=== PATIENT | female | born 1945 ===

== ENCOUNTER 2018-03-23 08:03 | Inpatient (IN) | payer MEDICARE, MEDICAID ==
[2018-03-23 08:03] VITALS: BMI 28.3
--- NOTE | 2018-03-23 08:55 | C.PDOC ---
History Of Present Illness 72 year old female with PMHx of peripheral vascular disease is sent to the ED by Dr. Lam for evaluation. Patient reports she was sent in for a left femoral popliteal bypass. Patient denies fever, chills, nausea, vomit, diarrhea , weakness, numbness. Time Seen by Provider: 03/23/18 08:15 Chief Complaint (Nursing): Medical Clearance History Per: Patient History/Exam Limitations: no limitations Onset/Duration Of Symptoms: Days Current Symptoms Are (Timing): Still Present Reports Recently: Treated By A Physician (Dr. Lam) Recent travel outside of the [place]: No Additional History Per: Patient Past Medical History Reviewed: Historical Data, Nursing Documentation, Vital Signs Vital Signs: Last Vital Signs Temp 98.3 F 03/24/18 08:00 Pulse 66 03/24/18 08:00 Resp 20 03/24/18 08:00 BP 153/82 H 03/24/18 08:00 Pulse Ox 95 03/24/18 08:00 - Medical History PMH: Anxiety, Bipolar Disorder, CHF, COPD, Depression, Diabetes, HTN Denies: Hepatitis, HIV, Chronic Kidney Disease, Seizures, Sexually Transmitted Disease Surgical History: No Surg Hx Denies: Pacemaker - [facility] Procedures ANGIOPLASTY OF OTHER NON-CORONARY VESSEL(S) (02/28/15) ATHERECTOMY OF OTHER NON-CORONARY VESSEL(S) (02/28/15) CERVICAL BIOPSY NEC (03/20/98) COLONOSCOPY (07/28/13) CONTRAST AORTOGRAM (02/28/15) CONTRAST ARTERIOGRAM-LEG (02/28/15) D & C NEC (03/20/98) DILATION OF L COM ILIAC ART WITH INTRALUM DEV, PERC APPROACH (12/01/17) DILATION OF L EXT ILIAC ART WITH INTRALUM DEV, PERC APPROACH (12/01/17) ESOPHAGOGASTRODUODENOSCOPY [EGD] W/CLOSED BIOPSY (10/23/12) FLUOROSCOPY OF AORTA AND BILATERAL LOWER EXTREMITY ARTERIES (12/01/17) INJECT/INFUSE ELECTROLYT (08/28/12) INJECT/INFUSE NEC (08/28/12) INSEJ [id number] PERIPHERAL NON-CORONARY VES STENT(S) (02/28/15) INSERTION OF ONE VASCULAR STENT (02/28/15) MEDICATION MANAGEMENT (07/16/15) PROCEDURE ON SINGLE VESSEL (02/28/15) PSYCHIAT DRUG THERAP NEC (02/16/15) TRANSFUSE NONAUT RED BLOOD CELLS IN PERIPH VEIN, PERC (12/01/17) Family History: States: Unknown Family Hx - Social History Hx Tobacco Use: No Hx Alcohol Use: No Hx Substance Use: No Review Of Systems Constitutional: Negative for: Fever, Chills Cardiovascular: Negative for: Chest Pain, Palpitations Respiratory: Negative for: Cough, Shortness of Breath Gastrointestinal: Negative for: Nausea, Vomiting Neurological: Negative for: Weakness, Numbness Physical Exam - Physical Exam Appears: Non-toxic, No Acute Distress Skin: Normal Color, Warm, Dry Head: Atraumatic, Normacephalic Eye(s): bilateral: Normal Inspection Oral Mucosa: Moist Neck: Normal ROM, Supple Chest: Symmetrical Cardiovascular: Rhythm Regular, No Murmur Respiratory: Normal Breath Sounds, No Rales, No Rhonchi, No Wheezing Gastrointestinal/Abdominal: Soft, No Tenderness, No Guarding, No Rebound Extremity: Normal ROM (left leg), No Tenderness, Capillary Refill (< 2 seconds left leg only. ), No Swelling, Other (right leg BKA. ) Pulses: Left Dorsalis Pedis: Normal Neurological/Psych: Oriented x3, Normal Speech Gait: Other (wheelchair) ED Course And Treatment - Laboratory Results Result Diagrams: 03/24/18 07:04 03/24/18 07:04 ECG: Interpreted By Me, Viewed By Me ECG Rhythm: Nonspecific Changes (ST/T) Interpretation Of ECG: nromal intervals, normal axis, Q eave in lead III and aVF. Rate From EC (BPM) O2 Sat by Pulse Oximetry: 95 (ON RA) Pulse Ox Interpretation: Normal Medical Decision Making Medical Decision Making: Impression: Sent by PMD Plan: * Labs * CXR * EKG case discussed with Dr. Lam and Dr. Pink and will admit to hospital. Disposition - Disposition Disposition: HOSPITALIZED Disposition Time: 10:40 Condition: FAIR - Clinical Impression Clinical Impression: Peripheral vascular disease - Scribe Statement The provider has reviewed the documentation as recorded by the Scribe Chepe Cortez All medical record entries made by the Scribe were at my direction and personally dictated by me. I have reviewed the chart and agree that the record accurately reflects my personal performance of the history, physical exam, medical decision making, and the department course for this patient. I have also personally directed, reviewed, and agree with the discharge instructions and disposition.
--- NOTE | 2018-03-23 09:01 | RAD ---
Date of service: 03/23/2018 PROCEDURE: CHEST RADIOGRAPH, 1 VIEW HISTORY: SOB COMPARISON: None available. FINDINGS: The left PICC line terminates in the SVC. LUNGS: The lungs are well inflated and clear. PLEURA: No pneumothorax or pleural fluid seen. CARDIOVASCULAR: Normal. OSSEOUS STRUCTURES: No significant abnormalities. VISUALIZED UPPER ABDOMEN: Normal. OTHER FINDINGS: None. IMPRESSION: No active pulmonary disease.
[2018-03-23 09:29] LABS: BASO # 0.1 K/uL (0.0-0.2); BASO % 1.3 % (0.0-2.0); EOS # 0.3 K/uL (0.0-0.7); EOS % 3.9 % (0.0-4.0); HEMOGLOBIN 13.7 g/dL (11.0-16.0); LYMPH # 1.5 K/uL (1.0-4.3); LYMPH % 22.1 % (20.0-40.0); MEAN CELL VOLUME 81.7 fL (81.0-99.0); MEAN CORPUSCULAR HEMOGLOBIN 27.2 pg (27.0-31.0); MEAN CORPUSCULAR HGB CONC 33.3 g/dL (33.0-37.0); MEAN PLATELET VOLUME 9.5 fL (7.2-11.7); MONO # 0.4 K/uL (0.0-0.8); MONO % 6.3 % (0.0-10.0); NEUT # 4.6 K/uL (1.8-7.0); NEUT % 66.4 % (50.0-75.0); NRBC % 0.1 % (0.0-2.0); RBC 5.05 Mil/uL (3.80-5.20); RED CELL DISTRIBUTION WIDTH 14.1 % (11.5-14.5); WHITE BLOOD COUNT 6.9 K/uL (4.8-10.8)
[2018-03-23 09:48] LABS: PROTHROMBIN TIME 10.4 SECONDS (9.7-12.2)
[2018-03-23 09:49] LABS: ALB/GLOB RATIO 1.3 (1.0-2.1); ALBUMIN 3.7 g/dL (3.5-5.0); CALCIUM 9.4 mg/dl (8.6-10.4)
[2018-03-23] MEDS: Sodium Chloride 0.45% 1,000 ML IV SCH (11:45)
[2018-03-23] MEDS: (Novolin R) Insulin Human Regular 100 units/ml vial SC SCH ×3 (12:28→22:10)
--- NOTE | 2018-03-23 13:21 | CP.PCM.PN ---
Subjective - Date & Time of Evaluation Date of Evaluation: 03/23/18 Time of Evaluation: 13:19 - Subjective Subjective: right bka chronically ischemic left leg has had muliple endovascular interventions, some successful, some not plan is left fem pop bpass pending medical/ cadiac evaluation. Objective - Vital Signs/Intake and Output Vital Signs (last 24 hours): Temp Pulse Resp BP Pulse Ox 98.4 F 72 20 114/65 95 03/23/18 11:20 03/23/18 11:20 03/23/18 11:20 03/23/18 11:20 03/23/18 11:20 - Medications Medications: Current Medications Divalproex Sodium (Depakote Er) 250 mg PO HS [facility] Escitalopram Oxalate (Lexapro) 10 mg PO DAILY [facility] Furosemide (Lasix) 40 mg PO BID [facility] Sodium Chloride (Sodium Chloride 0.45%) 1,000 mls @ 40 mls/hr IV .Q24H [facility] Last Admin: 03/23/18 11:45 Dose: 40 mls/hr Ibuprofen (Motrin Tab) 800 mg PO Q6H PRN PRN Reason: Pain, moderate (4-7) Insulin Human Regular (Novolin R) 0 unit SC ACHS [facility] Last Admin: 03/23/18 12:28 Dose: 6 units Lisinopril (Zestril) 5 mg PO DAILY [facility] Lorazepam (Ativan) 1 mg PO QID PRN PRN Reason: Anxiety Pregabalin (Lyrica) 50 mg PO TID [facility] Quetiapine Fumarate (Seroquel) 25 mg PO BID [facility] - Labs Labs: 03/23/18 09:24 03/23/18 09:24 PT 10.4 SECONDS (9.7-12.2) 03/23/18 09:24 INR 1.0 03/23/18 09:24 APTT 19 SECONDS (21-34) L 03/23/18 09:24
--- NOTE | 2018-03-23 13:48 | CP.PCM.CON ---
History of Present Illness - History of Present Illness History of Present Illness: Vascular Consult for Dr. Lam 72 y/o F patient presents to the ED with PAD. The patient states that they are not in any acute pain or distress and that they are here to receive medical clearance for a femoral-popliteal bypass for PAD in her left lower extremity. PMH: PVD s/p multple endovascular stent placement to L iliac, SFA and popliteal , DM, HTN, bipolar depression do with multiple psychiatric admissions PSH: right BKA, right hip surgery, left femur sx, multiple angios Review of Systems - Cardiovascular Cardiovascular: absent: Chest Pain, Palpitations, Rapid Heart Rate - Respiratory Respiratory: absent: Cough, Dyspnea, Pain on Inspiration, Excessive Mucous Production - Gastrointestinal Gastrointestinal: Diarrhea. absent: Nausea, Vomiting - Genitourinary Genitourinary: absent: Difficulty Urinating, Dysuria, Hematuria, Pyuria - Musculoskeletal Musculoskeletal: absent: Limited Range of Motion, Radiating Pain into Limb, Tingling Past Patient History - Tetanus Immunizations Tetanus Immunization: Unknown - Past Social History Smoking Status: Light Smoker < 10 Cigarettes Daily - CARDIAC Hx Congestive Heart Failure: Yes Hx Hypertension: Yes Hx Pacemaker: No - PULMONARY Hx Chronic Obstructive Pulmonary Disease (COPD): Yes - NEUROLOGICAL Hx Seizures: No - HEENT Hx HEENT Problems: No Hx Cataracts: Yes - RENAL Hx Chronic Kidney Disease: No - ENDOCRINE/METABOLIC Hx Diabetes Mellitus Type 2: Yes - HEMATOLOGICAL/ONCOLOGICAL Hx Human Immunodeficiency Virus (HIV): No - INTEGUMENTARY Other/Comment: pvd - MUSCULOSKELETAL/RHEUMATOLOGICAL Hx Falls: No - GASTROINTESTINAL Hx Gastrointestinal Disorders: No - GENITOURINARY/GYNECOLOGICAL Hx Sexually Transmitted Disorders: No - PSYCHIATRIC Hx Anxiety: Yes Hx Bipolar Disorder: Yes Hx Depression: Yes Hx Substance Use: No - SURGICAL HISTORY Hx Surgeries: Yes Other/Comment: right BKA - ANESTHESIA Hx Anesthesia: Yes Hx Anesthesia Reactions: No Hx Malignant Hyperthermia: No Meds Allergies/Adverse Reactions: Allergies Allergy/AdvReac Type Severity Reaction Status Date / Time aminothiols Allergy Mild RASH Uncoded 03/23/18 08:12 CONTRAST AdvReac Intermediate "SPACED Uncoded 03/23/18 08:12 OUT" - Medications Medications: Current Medications Divalproex Sodium (Depakote Er) 250 mg PO HS [facility] Escitalopram Oxalate (Lexapro) 10 mg PO DAILY [facility] Furosemide (Lasix) 40 mg PO BID [facility] Sodium Chloride (Sodium Chloride 0.45%) 1,000 mls @ 40 mls/hr IV .Q24H [facility] Last Admin: 03/23/18 11:45 Dose: 40 mls/hr Ibuprofen (Motrin Tab) 800 mg PO Q6H PRN PRN Reason: Pain, moderate (4-7) Insulin Human Regular (Novolin R) 0 unit SC ACHS [facility] Last Admin: 03/23/18 12:28 Dose: 6 units Lisinopril (Zestril) 5 mg PO DAILY [facility] Lorazepam (Ativan) 1 mg PO QID PRN PRN Reason: Anxiety Pregabalin (Lyrica) 50 mg PO TID [facility] Quetiapine Fumarate (Seroquel) 25 mg PO BID [facility] Physical Exam - Constitutional Appears: Well, Non-toxic, No Acute Distress - Extremities Exam Additional comments: Warm to touch, sensation and motor intact. +1 PT pulse, 0 DP pulse. Results - Vital Signs Recent Vital Signs: Last Vital Signs Temp 98.4 F 03/23/18 11:20 Pulse 72 03/23/18 11:20 Resp 20 03/23/18 11:20 BP 114/65 03/23/18 11:20 Pulse Ox 95 03/23/18 11:20 - Labs Result Diagrams: 03/23/18 09:24 03/23/18 09:24 Labs: Laboratory Results - last 24 hr 03/23/18 03/23/18 03/23/18 09:24 09:24 09:24 WBC 6.9 RBC 5.05 Hgb 13.7 Hct 41.3 MCV 81.7 MCH 27.2 MCHC 33.3 RDW 14.1 Plt Count 187 MPV 9.5 Neut % (Auto) 66.4 Lymph % (Auto) 22.1 [place] % (Auto) 6.3 Eos % (Auto) 3.9 Baso % (Auto) 1.3 Neut # (Auto) 4.6 Lymph # (Auto) 1.5 [place] # (Auto) 0.4 Eos # (Auto) 0.3 Baso # (Auto) 0.1 PT 10.4 INR 1.0 APTT 19 L Sodium 145 Potassium 4.1 Chloride 106 Carbon Dioxide 28 Anion Gap 15 BUN 32 H Creatinine 1.5 H Est GFR ( Amer) 42 Est GFR (Non-Af Amer) 34 POC Glucose (mg/dL) Random Glucose 185 H Calcium 9.4 Total Bilirubin 0.4 AST 14 D ALT 22 Alkaline Phosphatase 116 Total Protein 6.6 Albumin 3.7 Globulin 2.9 Albumin/Globulin Ratio 1.3 Blood Type Antibody Screen 03/23/18 03/23/18 09:24 12:05 WBC RBC Hgb Hct MCV MCH MCHC RDW Plt Count MPV Neut % (Auto) Lymph % (Auto) [place] % (Auto) Eos % (Auto) Baso % (Auto) Neut # (Auto) Lymph # (Auto) [place] # (Auto) Eos # (Auto) Baso # (Auto) PT INR APTT Sodium Potassium Chloride Carbon Dioxide Anion Gap BUN Creatinine Est GFR ( Amer) Est GFR (Non-Af Amer) POC Glucose (mg/dL) 211 H Random Glucose Calcium Total Bilirubin AST ALT Alkaline Phosphatase Total Protein Albumin Globulin Albumin/Globulin Ratio Blood Type A NEGATIVE Antibody Screen Negative Assessment & Plan - Assessment and Plan (Free Text) Assessment: 72 y/o F presents with PAD Plan: Needs medical and cardiac clearance. Needs echocardiography. Will schedule for potential femoral-popliteal bypass for 03/26/18. D/w Dr. Carole Navas PGY3
--- NOTE | 2018-03-24 05:31 | HP ---
HISTORY OF PRESENT ILLNESS: I know, Raegan, very well from [facility]. She has had some peripheral vascular disease. She is still smoking cigarettes despite multiple times telling her to stop. She has a right BKA from the same issue. Now the plan is from Dr. Lam to do a fem-pop bypass. I believe she will go for an angiogram tomorrow. She is having some skin color changes and ulcers on the left foot. PAST MEDICAL HISTORY: There is a past medical history of anxiety, bipolar disorder, CHF, COPD, depression, diabetes, hypertension. She had an angioplasty, arterectomy, cervical biopsy, colonoscopy, contrast aortogram, arteriogram, D and C, dilatation of the left common iliac artery, dilatation of the left external iliac artery, esophagogastroduodenoscopy, fluoroscopy of aorta and bilateral lower extremities, multiple vascular stents, multiple transfusions. SOCIAL HISTORY: She still smokes cigarettes. No alcohol, no drugs. FAMILY HISTORY: Hypertension in the family. REVIEW OF SYSTEMS: No acute vision changes or hearing changes. No sore throat. No chest pain or palpitations. No cough or shortness of breath. No nausea, vomiting, constipation, diarrhea. No muscle weakness or numbness. She does have a left foot skin discoloration ulcers of the right first toe. There was a right BKA, and there was a left first toe with a ulcer. PHYSICAL EXAMINATION: VITAL SIGNS: She has a 99.3 temperature, 69 pulse, 100/69 blood pressure, 20 respiratory rate, 94% O2 sat. HEENT: Atraumatic, normocephalic. Nontoxic. Comfortable in bed. Throat moist. Extraocular muscles are intact. Pupils equal, reactive to light and accommodation. NECK: No palpable thyroid. HEART: Regular rate. No murmurs. LUNGS: Decreased breath sounds bilaterally, but no wheezes, rhonchi, or rales. ABDOMEN: Soft, nontender. Positive bowel sounds. No guarding. No rebound. No CVA tenderness. EXTREMITIES: The right leg is BKA. The left leg has got a first toe ulcer beginning. SKIN: Left foot skin issue and some pain. Otherwise, the skin is warm and dry. NEUROLOGIC: Alert and oriented x3. Normal speech. Wheelchair is her way of getting around. She has multiple tests done. She has 145 sodium, potassium 4.1, BUN 32, creatinine 1.5. She has been on IV fluids. Last blood sugar was 193, calcium was 9.4, total bili is 0.4, AST is 14, ALT is 22, alkaline phosphatase is 116, total protein is 6.6, INR is 1, WBC is 6.9, hemoglobin 13.7, hematocrit 41.3, platelets of 187,000. She had consults with Dr. Leavitt, Cardiology; Dr. Lam, Vascular Surgeon. She will be on regular medication Zestril, Seroquel, Motrin, Lyrica, Lexapro, Lasix, Depakote, Ativan, IV fluids. We will check her labs tomorrow morning. She will have an angiogram tomorrow morning and possible fem/pop bypass afterwards. Peripheral vascular disease, left leg. Haja Pink DO MTDD
[2018-03-24 07:15] LABS: MEAN CELL VOLUME 81.5 fL (81.0-99.0); MEAN CORPUSCULAR HEMOGLOBIN 26.9 pg (27.0-31.0); MEAN CORPUSCULAR HGB CONC 33.1 g/dL (33.0-37.0); MEAN PLATELET VOLUME 10.2 fL (7.2-11.7); RBC 4.84 Mil/uL (3.80-5.20); RED CELL DISTRIBUTION WIDTH 14.2 % (11.5-14.5); WHITE BLOOD COUNT 6.2 K/uL (4.8-10.8)
[2018-03-24 07:30] LABS: ALB/GLOB RATIO 1.4 (1.0-2.1); ALBUMIN 3.5 g/dL (3.5-5.0); CALCIUM 9.3 mg/dl (8.6-10.4)
[2018-03-24] MEDS: (Novolin R) Insulin Human Regular 100 units/ml vial SC SCH ×4 (08:30→21:33)
--- NOTE | 2018-03-24 09:43 | PN ---
DATE: 03/24/2018 SUBJECTIVE: She is resting comfortably in bed. No complaints of chest pain, shortness of breath, or abdominal pain. She is resting in bed watching TV. IV fluids are running. PHYSICAL EXAMINATION: VITAL SIGNS: She has a 98.1 temp, 67 pulse, 146/79 blood pressure, 20 respiratory rate, 95% O2 sat on room air. HEENT: Atraumatic and normocephalic. HEART: Regular rate. LUNGS: Decreased breath sounds, but clear. ABDOMEN: Soft. EXTREMITIES: Left leg is not in any pain at this time. Awaiting for fem/pop bypass with Dr. Lam and Cardiology evaluation. She is currently on Ativan, Depakote, Lasix, Lexapro, Lyrica, Motrin, insulin coverage, Seroquel IV fluids and Zestril. LABORATORY DATA: She has a 145 sodium, potassium 4.1, BUN 32, creatinine 0.5, GFR is 34, sugar is 216, calcium is 9.4, AST is 14, ALT is 22, alkaline phosphatase 116, total protein 6.6. White count 6.9, hemoglobin 13.7, hematocrit 41.2, platelets are 187,000. ASSESSMENT AND PLAN: She was seen already by Dr. Lam as a consult for Dr. Leavitt. Waiting for fem/pop bypass procedure of the left foot for peripheral vascular disease, chronic ischemic left leg. She also has a history of anxiety, hypertension, and psychological issues. We will check her labs tomorrow. Discussed with the nurse. Haja Pink DO
--- NOTE | 2018-03-24 10:20 | CP.PCM.PN ---
Subjective - Date & Time of Evaluation Date of Evaluation: 03/24/18 Time of Evaluation: 10:18 - Subjective Subjective: Surgery: Dr. Lam Pt seen and examined. Resting comfortably in bed. No acute events overnight. No complaints. Objective - Vital Signs/Intake and Output Vital Signs (last 24 hours): Temp Pulse Resp BP Pulse Ox 98.3 F 66 20 153/82 H 95 03/24/18 08:00 03/24/18 08:00 03/24/18 08:00 03/24/18 08:00 03/24/18 09:44 Intake and Output: 03/24/18 03/24/18 06:59 18:59 Intake Total 840 Balance 840 - Medications Medications: Current Medications Divalproex Sodium (Depakote Er) 250 mg PO HS [facility] Last Admin: 03/23/18 21:42 Dose: 250 mg Escitalopram Oxalate (Lexapro) 10 mg PO DAILY [facility] Furosemide (Lasix) 40 mg PO BID [facility] Last Admin: 03/23/18 17:39 Dose: Not Given Heparin Sodium (Porcine) (Heparin) 5,000 units SC Q12 [facility] Sodium Chloride (Sodium Chloride 0.45%) 1,000 mls @ 40 mls/hr IV .Q24H [facility] Last Admin: 03/23/18 11:45 Dose: 40 mls/hr Ibuprofen (Motrin Tab) 800 mg PO Q6H PRN PRN Reason: Pain, moderate (4-7) Insulin Human Regular (Novolin R) 0 unit SC ACHS [facility] Last Admin: 03/24/18 08:30 Dose: 6 units Lisinopril (Zestril) 5 mg PO DAILY [facility] Lorazepam (Ativan) 1 mg PO QID PRN PRN Reason: Anxiety Mupirocin (Bactroban Ointment) 0 gm TOP BID [facility] Pneumococcal Polyvalent Vaccine (Pneumovax 23 Vaccine) 0.5 ml IM .ONCE ONE Stop: 03/25/18 10:01 Pregabalin (Lyrica) 50 mg PO TID [facility] Last Admin: 03/23/18 17:39 Dose: 50 mg Quetiapine Fumarate (Seroquel) 25 mg PO BID [facility] - Labs Labs: 03/24/18 07:04 03/24/18 07:04 PT 10.4 SECONDS (9.7-12.2) 03/23/18 09:24 INR 1.0 03/23/18 09:24 APTT 19 SECONDS (21-34) L 03/23/18 09:24 - Constitutional Appears: Non-toxic, No Acute Distress - Head Exam Head Exam: ATRAUMATIC, NORMOCEPHALIC - Eye Exam Eye Exam: EOMI - ENT Exam ENT Exam: Mucous Membranes Moist - Respiratory Exam Respiratory Exam: NORMAL BREATHING PATTERN. absent: Accessory Muscle Use, Respiratory Distress - GI/Abdominal Exam GI & Abdominal Exam: Soft. absent: Tenderness - Extremities Exam Additional comments: LLE, chronic ischemic skin changes, ulcer L hallux, ulcer in web space of 4th and 5th digit Assessment and Plan - Assessment and Plan (Free Text) Assessment: 72F w. LLE PVD -will plan for fem-pop bypass when cleared by cardiology/medicine -d/w attending Orly PGY4
[2018-03-24] MEDS: Sodium Chloride 0.45% 1,000 ML IV SCH ×2 (11:40→21:25)
--- NOTE | 2018-03-24 14:13 | CARD ---
APPROVED REPORT Date of service: 03/23/2018 EXAM: Two-dimensional and M-mode echocardiogram with Doppler and color Doppler. Other Information Quality : GoodRhythm : INDICATION Peripheral V <Conclusion> Technically very limited study Left ventricle: thickness: normal; size: normal; overall ejection fraction: 65%: diastolic filling pressures: normal Mitral valve: annulus: normal: leaflets: normal: excursion: normal; no significant trans-mitral gradient: No significant incompetence: left atrium: normal Aortic valve: leaflets:Calcified thickened non coronary cusp: excursion: normal; 12 mmHg trans-aortic gradient: No significant incompetence: aortic root: normal Right sided Structures: Pulmonary valve: normal; no significant incompetence; Tricuspid valve: normal; no significant incompetence: Intra-cardiac hemodynamics: pulmonary systolic pressures: normal; central venous pressures: normal No pericardial effusion
[2018-03-24] MEDS: Nystatin 100,000 Units/gm Cream(15 gm) TOP SCH (18:00)
--- NOTE | 2018-03-24 18:56 | CP.PCM.CON ---
History of Present Illness - History of Present Illness History of Present Illness: Reason for consult: pre-CV operative evaluation HPI 72 year old female with PMHx of peripheral vascular disease is sent to the ED by Dr. Lam for evaluation. Patient reports she was sent in for a left femoral popliteal bypass. Patient denies fever, chills, nausea, vomit, diarrhea , weakness, numbness. Review of Systems - Constitutional Constitutional: absent: Chills, Weakness - EENT Nose/Mouth/Throat: absent: Nasal Congestion, Neck Pain - Cardiovascular Cardiovascular: absent: Chest Pain, Pedal Edema, Syncope - Respiratory Respiratory: absent: Cough, Dyspnea on Exertion - Gastrointestinal Gastrointestinal: absent: Abdominal Pain, Melena - Musculoskeletal Musculoskeletal: Numbness, Tingling - Integumentary Integumentary: Skin Ulcer Past Patient History - Tetanus Immunizations Tetanus Immunization: Unknown - Past Medical History & Family History Past Medical History?: Yes - Past Social History Smoking Status: Light Smoker < 10 Cigarettes Daily - CARDIAC Hx Congestive Heart Failure: Yes Hx Hypertension: Yes - PULMONARY Hx Chronic Obstructive Pulmonary Disease (COPD): Yes - NEUROLOGICAL Hx Seizures: No - HEENT Hx HEENT Problems: No Hx Cataracts: Yes - RENAL Hx Chronic Kidney Disease: No - ENDOCRINE/METABOLIC Hx Diabetes Mellitus Type 2: Yes - HEMATOLOGICAL/ONCOLOGICAL Hx Human Immunodeficiency Virus (HIV): No - INTEGUMENTARY Other/Comment: pvd - MUSCULOSKELETAL/RHEUMATOLOGICAL Hx Falls: No - GASTROINTESTINAL Hx Gastrointestinal Disorders: No - GENITOURINARY/GYNECOLOGICAL Hx Sexually Transmitted Disorders: No - PSYCHIATRIC Hx Anxiety: Yes Hx Bipolar Disorder: Yes Hx Depression: Yes Hx Substance Use: No - SURGICAL HISTORY Hx Surgeries: Yes Other/Comment: right BKA - ANESTHESIA Hx Anesthesia: Yes Hx Anesthesia Reactions: No Hx Malignant Hyperthermia: No Meds Allergies/Adverse Reactions: Allergies Allergy/AdvReac Type Severity Reaction Status Date / Time aminothiols Allergy Mild RASH Uncoded 03/23/18 08:12 CONTRAST AdvReac Intermediate "SPACED Uncoded 03/23/18 08:12 OUT" - Medications Medications: Current Medications Divalproex Sodium (Depakote Er) 250 mg PO HS [facility] Last Admin: 03/23/18 21:42 Dose: 250 mg Escitalopram Oxalate (Lexapro) 10 mg PO DAILY [facility] Last Admin: 03/24/18 10:59 Dose: 10 mg Furosemide (Lasix) 40 mg PO BID [facility] Last Admin: 03/24/18 17:19 Dose: 40 mg Heparin Sodium (Porcine) (Heparin) 5,000 units SC Q12 [facility] Last Admin: 03/24/18 11:00 Dose: 5,000 units Sodium Chloride (Sodium Chloride 0.45%) 1,000 mls @ 40 mls/hr IV .Q24H [facility] Last Admin: 03/24/18 11:40 Dose: Not Given Ibuprofen (Motrin Tab) 800 mg PO Q6H PRN PRN Reason: Pain, moderate (4-7) Insulin Human Regular (Novolin R) 0 unit SC ACHS [facility] Last Admin: 03/24/18 17:21 Dose: 3 units Lisinopril (Zestril) 5 mg PO DAILY [facility] Last Admin: 03/24/18 10:59 Dose: 5 mg Lorazepam (Ativan) 1 mg PO QID PRN PRN Reason: Anxiety Mupirocin (Bactroban Ointment) 0 gm TOP BID [facility] Last Admin: 03/24/18 17:23 Dose: 1 applic Nystatin (Mycostatin Cream) 0 ea TOP TID [facility] Pneumococcal Polyvalent Vaccine (Pneumovax 23 Vaccine) 0.5 ml IM .ONCE ONE Stop: 03/25/18 10:01 Pregabalin (Lyrica) 50 mg PO TID [facility] Last Admin: 03/24/18 17:19 Dose: 50 mg Quetiapine Fumarate (Seroquel) 25 mg PO BID [facility] Last Admin: 03/24/18 17:20 Dose: 25 mg Physical Exam - Constitutional Appears: No Acute Distress - Head Exam Head Exam: ATRAUMATIC - Eye Exam Eye Exam: absent: Scleral icterus - ENT Exam ENT Exam: Mucous Membranes Moist - Neck Exam Neck exam: Positive for: Full Rom - Respiratory Exam Respiratory Exam: Decreased Breath Sounds, Clear to Auscultation Bilateral - Cardiovascular Exam Cardiovascular Exam: REGULAR RHYTHM - GI/Abdominal Exam GI & Abdominal Exam: Soft - Extremities Exam Extremities exam: Positive for: tenderness. Negative for: pedal edema Additional comments: +ulceration - Back Exam Back exam: NORMAL INSPECTION. absent: CVA tenderness (L) Results - Vital Signs Recent Vital Signs: Last Vital Signs Temp 99.3 F 03/24/18 15:43 Pulse 75 03/24/18 15:43 Resp 20 03/24/18 15:43 BP 131/75 07/24/18 17:19 Pulse Ox 95 03/24/18 15:43 - Labs Result Diagrams: 03/24/18 07:04 03/24/18 07:04 Labs: Laboratory Results - last 24 hr 03/23/18 03/24/18 03/24/18 21:23 07:04 07:04 WBC 6.2 RBC 4.84 Hgb 13.0 Hct 39.4 MCV 81.5 MCH 26.9 L MCHC 33.1 RDW 14.2 Plt Count 177 MPV 10.2 Sodium 142 Potassium 3.8 Chloride 107 Carbon Dioxide 23 Anion Gap 17 BUN 29 H Creatinine 1.3 H Est GFR ( Amer) 49 Est GFR (Non-Af Amer) 40 POC Glucose (mg/dL) 216 H Random Glucose 202 H Calcium 9.3 Total Bilirubin 0.2 AST 14 ALT 18 Alkaline Phosphatase 103 NT-Pro-B Natriuret Pep 1250 H Total Protein 6.0 L Albumin 3.5 Globulin 2.5 Albumin/Globulin Ratio 1.4 03/24/18 03/24/18 03/24/18 07:10 11:20 16:10 WBC RBC Hgb Hct MCV MCH MCHC RDW Plt Count MPV Sodium Potassium Chloride Carbon Dioxide Anion Gap BUN Creatinine Est GFR ( Amer) Est GFR (Non-Af Amer) POC Glucose (mg/dL) 226 H 204 H 189 H Random Glucose Calcium Total Bilirubin AST ALT Alkaline Phosphatase NT-Pro-B Natriuret Pep Total Protein Albumin Globulin Albumin/Globulin Ratio Assessment & Plan - Assessment and Plan (Free Text) Assessment: Pre-op evaluation T2dm PAOD Plan: Echo Lexiscan Carotid US - Date & Time Date: 03/23/18 Time: 08:00
--- NOTE | 2018-03-24 19:03 | CP.PCM.PN ---
Subjective - Date & Time of Evaluation Date of Evaluation: 03/24/18 Time of Evaluation: 08:35 - Subjective Subjective: no chest pain no sob Objective - Vital Signs/Intake and Output Vital Signs (last 24 hours): Temp Pulse Resp BP Pulse Ox 99.3 F 75 20 131/75 95 03/24/18 15:43 03/24/18 15:43 03/24/18 15:43 03/24/18 17:19 03/24/18 15:43 Intake and Output: 03/24/18 03/25/18 18:59 06:59 Intake Total 770 Balance 770 - Medications Medications: Current Medications Divalproex Sodium (Depakote Er) 250 mg PO HS [facility] Last Admin: 03/23/18 21:42 Dose: 250 mg Escitalopram Oxalate (Lexapro) 10 mg PO DAILY [facility] Last Admin: 03/24/18 10:59 Dose: 10 mg Furosemide (Lasix) 40 mg PO BID [facility] Last Admin: 03/24/18 17:19 Dose: 40 mg Heparin Sodium (Porcine) (Heparin) 5,000 units SC Q12 [facility] Last Admin: 03/24/18 11:00 Dose: 5,000 units Sodium Chloride (Sodium Chloride 0.45%) 1,000 mls @ 40 mls/hr IV .Q24H [facility] Last Admin: 03/24/18 11:40 Dose: Not Given Ibuprofen (Motrin Tab) 800 mg PO Q6H PRN PRN Reason: Pain, moderate (4-7) Insulin Human Regular (Novolin R) 0 unit SC ACHS [facility] Last Admin: 03/24/18 17:21 Dose: 3 units Lisinopril (Zestril) 5 mg PO DAILY [facility] Last Admin: 03/24/18 10:59 Dose: 5 mg Lorazepam (Ativan) 1 mg PO QID PRN PRN Reason: Anxiety Mupirocin (Bactroban Ointment) 0 gm TOP BID [facility] Last Admin: 03/24/18 17:23 Dose: 1 applic Nystatin (Mycostatin Cream) 0 ea TOP TID [facility] Pneumococcal Polyvalent Vaccine (Pneumovax 23 Vaccine) 0.5 ml IM .ONCE ONE Stop: 03/25/18 10:01 Pregabalin (Lyrica) 50 mg PO TID [facility] Last Admin: 03/24/18 17:19 Dose: 50 mg Quetiapine Fumarate (Seroquel) 25 mg PO BID [facility] Last Admin: 03/24/18 17:20 Dose: 25 mg - Labs Labs: 03/24/18 07:04 03/24/18 07:04 PT 10.4 SECONDS (9.7-12.2) 03/23/18 09:24 INR 1.0 03/23/18 09:24 APTT 19 SECONDS (21-34) L 03/23/18 09:24 - Constitutional Appears: Non-toxic - Head Exam Head Exam: NORMOCEPHALIC - Eye Exam Eye Exam: absent: Scleral icterus - Respiratory Exam Respiratory Exam: Clear to Ausculation Bilateral - Cardiovascular Exam Cardiovascular Exam: REGULAR RHYTHM - Extremities Exam Extremities Exam: Tenderness. absent: Pedal Edema Additional comments: +small ulceration Assessment and Plan - Assessment and Plan (Free Text) Assessment: PVD T2dm HTN Plan: Lexiscan in am
--- NOTE | 2018-03-24 21:28 | CARD ---
APPROVED REPORT Date of service: 03/23/2018 EKG Measurement Heart [id number] <Conclusion> Normal sinus rhythm Inferior infarct, age undetermined Misplaced precordial electrodes - Please repeat Abnormal ECG
--- NOTE | 2018-03-24 23:45 | CP.PCM.PN ---
Subjective - Date & Time of Evaluation Date of Evaluation: 03/24/18 Time of Evaluation: 09:15 - Subjective Subjective: No change no chest pain Carotid US - pending ECHO - nL EF 65% Objective - Vital Signs/Intake and Output Vital Signs (last 24 hours): Temp Pulse Resp BP Pulse Ox 99.3 F 75 20 131/75 95 03/24/18 15:43 03/24/18 15:43 03/24/18 15:43 03/24/18 17:19 03/24/18 15:43 Intake and Output: 03/24/18 03/25/18 18:59 06:59 Intake Total 770 320 Balance 770 320 - Medications Medications: Current Medications Divalproex Sodium (Depakote Er) 250 mg PO HS [facility] Last Admin: 03/24/18 21:33 Dose: 250 mg Escitalopram Oxalate (Lexapro) 10 mg PO DAILY [facility] Last Admin: 03/24/18 10:59 Dose: 10 mg Furosemide (Lasix) 40 mg PO BID [facility] Last Admin: 03/24/18 17:19 Dose: 40 mg Heparin Sodium (Porcine) (Heparin) 5,000 units SC Q12 [facility] Last Admin: 03/24/18 21:19 Dose: 5,000 units Sodium Chloride (Sodium Chloride 0.45%) 1,000 mls @ 40 mls/hr IV .Q24H [facility] Last Admin: 03/24/18 21:25 Dose: 40 mls/hr Ibuprofen (Motrin Tab) 800 mg PO Q6H PRN PRN Reason: Pain, moderate (4-7) Insulin Human Regular (Novolin R) 0 unit SC ACHS [facility] Last Admin: 03/24/18 21:33 Dose: 6 units Lisinopril (Zestril) 5 mg PO DAILY [facility] Last Admin: 03/24/18 10:59 Dose: 5 mg Lorazepam (Ativan) 1 mg PO QID PRN PRN Reason: Anxiety Last Admin: 03/24/18 21:38 Dose: 1 mg Mupirocin (Bactroban Ointment) 0 gm TOP BID [facility] Last Admin: 03/24/18 17:23 Dose: 1 applic Nystatin (Mycostatin Cream) 0 ea TOP TID [facility] Last Admin: 03/24/18 18:00 Dose: 1 applic Pneumococcal Polyvalent Vaccine (Pneumovax 23 Vaccine) 0.5 ml IM .ONCE ONE Stop: 03/25/18 10:01 Pregabalin (Lyrica) 50 mg PO TID [facility] Last Admin: 03/24/18 17:19 Dose: 50 mg Quetiapine Fumarate (Seroquel) 25 mg PO BID [facility] Last Admin: 03/24/18 17:20 Dose: 25 mg - Labs Labs: 03/24/18 07:04 03/24/18 07:04 PT 10.4 SECONDS (9.7-12.2) 03/23/18 09:24 INR 1.0 03/23/18 09:24 APTT 19 SECONDS (21-34) L 03/23/18 09:24 - Constitutional Appears: Non-toxic - Eye Exam Eye Exam: absent: Scleral icterus - Neck Exam Neck Exam: Full ROM - Respiratory Exam Respiratory Exam: Clear to Ausculation Bilateral - Cardiovascular Exam Cardiovascular Exam: REGULAR RHYTHM - GI/Abdominal Exam GI & Abdominal Exam: Soft - Extremities Exam Extremities Exam: Calf Tenderness. absent: Pedal Edema Additional comments: small ulcer in left foot with eschar, dry, no drainage, tender to touch - Neurological Exam Neurological Exam: Alert, Oriented x3 Assessment and Plan - Assessment and Plan (Free Text) Assessment: PVD T2dm HTN Plan: Lexiscan stress test in AM. Cont meds
[2018-03-25 07:22] LABS: HEMOGLOBIN 13.1 g/dL (11.0-16.0); MEAN CELL VOLUME 81.8 fL (81.0-99.0); MEAN CORPUSCULAR HEMOGLOBIN 26.9 pg (27.0-31.0); MEAN CORPUSCULAR HGB CONC 32.9 g/dL (33.0-37.0); MEAN PLATELET VOLUME 10.1 fL (7.2-11.7); RBC 4.88 Mil/uL (3.80-5.20); RED CELL DISTRIBUTION WIDTH 14.2 % (11.5-14.5); WHITE BLOOD COUNT 6.1 K/uL (4.8-10.8)
[2018-03-25 07:35] LABS: ALB/GLOB RATIO 1.3 (1.0-2.1); ALBUMIN 3.7 g/dL (3.5-5.0); CALCIUM 9.4 mg/dl (8.6-10.4)
[2018-03-25] MEDS: (Novolin R) Insulin Human Regular 100 units/ml vial SC SCH ×4 (07:54→21:55)
[2018-03-25] MEDS ORDERED: Caffeine Citrated **INJ** 20 MG/ML IV ONE (08:30)
--- NOTE | 2018-03-25 09:15 | PN ---
DATE: 03/25/2018 SUBJECTIVE: She is resting comfortably in bed. She slept well. No acute complaint and comfortable. She is on IV fluids, Ativan, Bactroban cream, Depakote, heparin, Lasix, Lexapro, Lyrica, Motrin, nystatin cream, insulin coverage, Seroquel, and Zestril. PHYSICAL EXAMINATION: VITAL SIGNS: Vital signs are 99.2 temperature, 67 pulse, 130/74 blood pressure, 18 respiratory rate, and 99% O2 sat on room air. HEENT: Head is atraumatic and normocephalic. HEART: Regular rate. LUNGS: Clear to auscultation. ABDOMEN: Soft. EXTREMITIES: Right BKA. Left is an ishemic leg. She is here for fem/pop bypass. She can go for a perfusion time today with cardiology clear her for a fem/pop bypass by Dr. Lam, the surgeon. LABORATORY DATA: She has 6.2 white count, 13 hemoglobin, 39.4 hematocrit with 177 platelets. Sodium 142, potassium 3.8, BUN 29, creatinine 1.3. His last blood sugar is 129, calcium is 9.3, total ronald is 0.2, AST is 14, ALT is 18, alkaline phosphatase 103, BNP is 1250, total protein 6, and INR is 1. ASSESSMENT AND PLAN: We will continue aggressive treatment and care, getting her all tuned up for the procedure by Dr. Lam. We will check her labs tomorrow. Asked for Cardiology to clear her. Haja Pink DO
[2018-03-25] MEDS ORDERED: Pneumococcal 23-Valent Vaccine IM ONE (10:00)
[2018-03-25] MEDS: Nystatin 100,000 Units/gm Cream(15 gm) TOP SCH ×3 (11:00→18:00)
--- NOTE | 2018-03-25 11:09 | CP.PCM.PN ---
Subjective - Date & Time of Evaluation Date of Evaluation: 03/25/18 Time of Evaluation: 11:08 - Subjective Subjective: Vascular Surgery Progress Note for Dr. Lam 72F seen and evaluated this morning at bedside. No acute events overnight. No complaints today. Pt is up and OOB to chair, tolerating diet. Denies f/c, n/v/d , CP, SOB. Objective - Vital Signs/Intake and Output Vital Signs (last 24 hours): Temp Pulse Resp BP Pulse Ox 98.3 F 73 20 130/73 95 03/25/18 08:00 03/25/18 08:00 03/25/18 08:00 03/25/18 08:00 03/25/18 08:00 Intake and Output: 03/25/18 03/25/18 06:59 18:59 Intake Total 880 Balance 880 - Medications Medications: Current Medications Divalproex Sodium (Depakote Er) 250 mg PO HS [facility] Last Admin: 03/24/18 21:33 Dose: 250 mg Escitalopram Oxalate (Lexapro) 10 mg PO DAILY [facility] Last Admin: 03/24/18 10:59 Dose: 10 mg Furosemide (Lasix) 40 mg PO BID [facility] Last Admin: 03/24/18 17:19 Dose: 40 mg Heparin Sodium (Porcine) (Heparin) 5,000 units SC Q12 [facility] Last Admin: 03/24/18 21:19 Dose: 5,000 units Sodium Chloride (Sodium Chloride 0.45%) 1,000 mls @ 40 mls/hr IV .Q24H [facility] Last Admin: 03/24/18 21:25 Dose: 40 mls/hr Ibuprofen (Motrin Tab) 800 mg PO Q6H PRN PRN Reason: Pain, moderate (4-7) Insulin Human Regular (Novolin R) 0 unit SC ACHS [facility] Last Admin: 03/25/18 07:54 Dose: Not Given Lisinopril (Zestril) 5 mg PO DAILY [facility] Last Admin: 03/24/18 10:59 Dose: 5 mg Lorazepam (Ativan) 1 mg PO QID PRN PRN Reason: Anxiety Last Admin: 03/24/18 21:38 Dose: 1 mg Mupirocin (Bactroban Ointment) 0 gm TOP BID [facility] Last Admin: 03/24/18 17:23 Dose: 1 applic Nystatin (Mycostatin Cream) 0 ea TOP TID [facility] Last Admin: 03/24/18 18:00 Dose: 1 applic Pregabalin (Lyrica) 50 mg PO TID [facility] Last Admin: 03/24/18 17:19 Dose: 50 mg Quetiapine Fumarate (Seroquel) 25 mg PO BID [facility] Last Admin: 03/24/18 17:20 Dose: 25 mg - Labs Labs: 03/25/18 07:06 03/25/18 07:06 PT 10.4 SECONDS (9.7-12.2) 03/23/18 09:24 INR 1.0 03/23/18 09:24 APTT 19 SECONDS (21-34) L 03/23/18 09:24 - Constitutional Appears: Well, Non-toxic, No Acute Distress - Head Exam Head Exam: ATRAUMATIC, NORMAL INSPECTION, NORMOCEPHALIC - Eye Exam Eye Exam: EOMI - Respiratory Exam Respiratory Exam: Clear to Ausculation Bilateral, NORMAL BREATHING PATTERN - GI/Abdominal Exam GI & Abdominal Exam: Soft, Normal Bowel Sounds. absent: Tenderness - Rectal Exam Rectal Exam: Deferred - Neurological Exam Neurological Exam: Alert, Awake, Oriented x3 - Psychiatric Exam Psychiatric exam: Normal Affect, Normal Mood Assessment and Plan - Assessment and Plan (Free Text) Assessment: 72F w/ PVD Plan: Cardiac cath tomorrow NPO Fem-pop bypass once medically optimized further recs per Dr. Carole Reilly PGY1
--- NOTE | 2018-03-25 11:31 | VASCLAB ---
Date of service: 03/24/2018 PROCEDURE: Left Lower Extremity Vein mapping. HISTORY: Vein mapping, Pre-op left fem-pop bypass. PRIORS: None. TECHNIQUE: Left common femoral, femoral, popliteal and posterior tibial, peroneal and great saphenous veins were evaluated. Flow was assessed with color Doppler, compressibility, assessment of phasic flow and augmentation response. Report prepared by Ja Vega, BS, RVT FINDINGS: LEFT: 1. Common Femoral Vein: Compressibility - Fully compressible: Thrombus - None : Flow - Phasic: Augmentation -Normal: Reflux - None. 2. Femoral Vein:Compressibility - Fully compressible: Thrombus - None 3. Popliteal Vein: Compressibility - Fully compressible: Thrombus - None 4. Posterior Tibial Vein: Compressibility - Fully compressible: Thrombus - None 5. Peroneal Vein:Compressibility - Fully compressible: Thrombus - None 6. Greater Saphenous Vein: Compressibility - Fully compressible: Thrombus - None 6.1. Thigh - Proximal Diameter: 0.47cm. Mid Diameter: 0.44cm. Distal Diameter: 0.43cm. Diameter: 0.44cm. 6.2. Calf - Proximal Diameter: 0.35cm. Mid Diameter:0.32cm. Distal Diameter: 0.40cm 6.3. Ankle - Diameter: 0.38cm 7. Mulino Saphenous Vein: Compressibility - Fully compressible: thrombus - None 7.1. Knee - Diameter 0.31cm 7.2. Calf - Proximal Diameter: 0.28cm. Mid Diameter: 0.26cm. Distal Diameter: 0.22cm. 7.3. Ankle - Diameter: 0.20cm OTHER FINDINGS: None. IMPRESSION: Diameter measurements of the left greater saphenous vein are measured between 0.32 cm and 0.47 cm and lesser saphenous vein is measured between 0.20 cm and 0.31 cm.
--- NOTE | 2018-03-25 11:34 | VASCLAB ---
Date of service: 03/24/2018 PROCEDURE: HISTORY: Carotid artery stenosis COMPARISON: None available. TECHNIQUE: Grayscale and duplex Doppler evaluation of the cervical carotid and vertebral arteries were performed. The common carotid, carotid bifurcations and cervical Internal Carotid Artery (ICA) and proximal External Carotid Artery (ECA) were evaluated. The vertebral arteries were evaluated for gross patency and flow direction. Report prepared by Ja Vega, BS, RVT FINDINGS: RIGHT CAROTID ARTERIES: 1. Common Carotid Artery: No significant focal plaque formation of the right common carotid artery. Maximum Peak Systolic velocity: 121 cm/sec: End-diastolic velocity 14 cm/sec. 2. Carotid Bifurcation: Calcific plaque formation. Maximum Peak Systolic velocity: 89 cm/sec: End-diastolic velocity 12 cm/sec. 3. Internal Carotid Artery: Mild plaque formation of the right proximal ICA which does not results in a hemodynamically significant stenosis. Plaque description: Calcific 3.1. Proximal Segment: Peak systolic velocity 98 cm/sec: End-diastolic velocity 19 cm/sec - % stenosis 0-15% 3.2. Middle Segment: Peak systolic velocity 121 cm/sec: End-diastolic velocity 25 cm/sec - % stenosis 0-15% 3.3. Distal Segment: Peak systolic velocity 103 cm/sec: End-diastolic velocity 20 cm/sec - % stenosis 0-15% 4. External Carotid Artery: No significant focal plaque formation. Peak systolic velocity 127 cm/sec 5. ICA/CCA Ratio: 1.0 LEFT CAROTID ARTERIES: 1. Common Carotid Artery: No significant focal plaque formation of the left common carotid artery. Maximum Peak Systolic velocity: 152 cm/sec: End-diastolic velocity 20 cm/sec. 2. Carotid Bifurcation: Heterogeneous plaque formation. Maximum Peak Systolic velocity: 148 cm/sec: End-diastolic velocity 25 cm/sec. 3. Internal Carotid Artery: Minimal plaque formation of the left proximal ICA which does not result in hemodynamically significant stenosis. Plaque description: Heterogeneous 3.1. Proximal Segment: Peak systolic velocity 113 cm/sec: End-diastolic velocity 22 cm/sec - % stenosis 0-15% 3.2. Middle Segment: Peak systolic velocity 108 cm/sec: End-diastolic velocity 25 cm/sec - % stenosis 0-15% 3.3. Distal Segment: Peak systolic velocity 126 cm/sec: End-diastolic velocity 29 cm/sec - % stenosis 0-15% 4. External Carotid Artery: No significant focal plaque formation. Peak systolic velocity 132 cm/sec 5. ICA/CCA Ratio: 1.0 VERTEBRAL ARTERIES: 1. Right Vertebral Artery: The right vertebral artery flow direction is antegrade. 2. Left Vertebral Artery: The left vertebral artery flow direction is antegrade. OTHER FINDINGS: 1. Right Brachial Blood pressure: mmHg. 2. Left Brachial Blood pressure: mmHg. IMPRESSION: RIGHT: Duplex scan does not suggest hemodynamically significant stenosis of the right extracranial carotid arteries. LEFT: Duplex scan does not suggest hemodynamically significant stenosis of the left extracranial carotid arteries.
[2018-03-25] MEDS: Sodium Chloride 0.45% 1,000 ML IV SCH ×2 (11:45→23:12)
--- NOTE | 2018-03-25 18:21 | CARD ---
APPROVED REPORT Date of service: 03/25/2018 Protocol: LEXISCAN Test Type: LEXISCAN STRESS Test Indications: PERIPHERAL VASCULAR DISEASE Medications: LIST IV CAFFEINE CITRATE GIVEN 60 MG Target HR: 150 bpm Resting ECG: NSR Resting Heart Rate: 62 bpm Resting Blood Pressure: 132/80mmHg submaximum (85%): 128 bpm TEST SUMMARY [id number]:01..1.065/.0. PREINFSNHYPERV.14:[id number]/80.0. INFUSIONDOSE 100:300.00..065/.0. BREREKUON10:[id number]/80.0. PROCEDURE Pharmacologic stress testing was performed using 0.4mg per 5ml of regadenoson given intravenously over 7-10 seconds. POST EXERCISE Reason for Termination: Protocol Completed Target HR: No Max HR: 65 bpm 61% of Maximum Predicted HR: 150 bpm Exercise duration: 00:30 min:sec, 0 Stage Exercise capacity: 1.0METs Max Blood Pressure: 132/80mmHg Blood Pressure response to exercise: normal resting BP - appropriate response Heart Rate response to exercise: appropriate Chest Pain: No, none Angina index: 0 Arrhythmia: No, none ST Change: No, none Deviation: 0 mm INTERPRETATION Stress EKG Conclusion: NEGATIVE LEXISCAN STRESS TEST NORMAL BP RESPONSE TO LEXISCAN NUCLEAR STUDIES TO BE READ SEPARATELY EXAM: Myocardial Perfusion STRESS/REST Imaging Protocol The imaging protocol used to acquire images was Stress Tc-99m/rest Tc-99m 1 day Rest Spect myocardial perfusion imaging was performed in supine position 45 minutes following the injection of 30.1 mCi of Tc-99 Myoview. Gated Stress Spect was performed 45 minutes after intravenous 12.5 mCi Tc-99 Myoview injection. The images were gated to evaluate regional wall motion and calculate ventricular ejection fraction.Images were reconstructed using backfilter projection method in short horizontal and verticle long axis. Spect slices were generated. RESTING DATA EDV24.54cvHL0.50L/min ESV4.00mlMyocardial Mass63.00g Av. Heart Rate77.00bpm EF83.00% STRESS DATA EDV31.06nsQN3.80L/min ESV4.00mlMyocardial Mass76.00g EF87.00% Regional WT score at stress:0.00 Regional WM score at stress:0.00 Summed WT score at stress:3.00 Av. Heart Rate68.00bpmSummed WM score at stress:0.00 LV Perf. Quant 17 Seg. SSS8.00 17 Seg. SRS0.00 17 Seg. SDS8.00 Stress Defect Extent (% LAD)0.00Rest Defect Extent (% LAD)0.00Rev. Defect Extent (% LAD)0.00 Stress Defect Extent (% LCX)35.00Rest Defect Extent (% LCX)0.00Rev. Defect Extent (% LCX)35.00 Stress Defect Extent (% RCA)47.80Rest Defect Extent (% RCA)0.00Rev. Defect Extent (% RCA)47.80 Stress Defect Extent (% MONSTER)18.50Rest Defect Extent (% MONSTER)0.00Rev. Defect Extent (% MONSTER)18.50 IMPRESSION Abnormal Myocardial Perfusion exercise stress study Left Ventricle LV Size/Shape: The left ventricle is normal size. LV Function:Left ventricle systolic function is normal. The Ejection Fraction is >70%. Regional Wall Motion:There is normal left ventricular wall motion. Metabolism/Perfusion Defects: There is large partially reversible defect noted in the inferolateral wall consistent with ischemia. Conclusion 1. There is large stress-induced ischemia noted in the infero-lateral wall noted. 2. Left ventricle systolic function is normal. 3. The Ejection Fraction is >70%. 4. Will benefit from cardiac cath.
--- NOTE | 2018-03-25 19:15 | CP.PCM.PN ---
Subjective - Date & Time of Evaluation Date of Evaluation: 03/25/18 Time of Evaluation: 18:59 Objective - Vital Signs/Intake and Output Vital Signs (last 24 hours): Temp Pulse Resp BP Pulse Ox 98.4 F 70 20 134/72 95 03/25/18 15:54 03/25/18 15:54 03/25/18 15:54 03/25/18 17:32 03/25/18 15:54 Intake and Output: 03/25/18 03/25/18 06:59 18:59 Intake Total 880 520 Balance 880 520 - Medications Medications: Current Medications Divalproex Sodium (Depakote Er) 250 mg PO HS [facility] Last Admin: 03/24/18 21:33 Dose: 250 mg Escitalopram Oxalate (Lexapro) 10 mg PO DAILY [facility] Last Admin: 03/25/18 11:00 Dose: 10 mg Furosemide (Lasix) 40 mg PO BID [facility] Last Admin: 03/25/18 17:32 Dose: 40 mg Heparin Sodium (Porcine) (Heparin) 5,000 units SC Q12 [facility] Last Admin: 03/25/18 11:21 Dose: 5,000 units Sodium Chloride (Sodium Chloride 0.45%) 1,000 mls @ 75 mls/hr IV .[id number] [facility] Ibuprofen (Motrin Tab) 800 mg PO Q6H PRN PRN Reason: Pain, moderate (4-7) Insulin Human Regular (Novolin R) 0 unit SC ACHS [facility] Last Admin: 03/25/18 17:36 Dose: 6 units Lisinopril (Zestril) 5 mg PO DAILY [facility] Last Admin: 03/25/18 11:00 Dose: 5 mg Lorazepam (Ativan) 1 mg PO QID PRN PRN Reason: Anxiety Last Admin: 03/24/18 21:38 Dose: 1 mg Mupirocin (Bactroban Ointment) 0 gm TOP BID [facility] Last Admin: 03/25/18 17:34 Dose: 1 applic Nystatin (Mycostatin Cream) 0 ea TOP TID [facility] Last Admin: 03/25/18 15:00 Dose: 1 applic Pregabalin (Lyrica) 50 mg PO TID [facility] Last Admin: 03/25/18 17:33 Dose: 50 mg Quetiapine Fumarate (Seroquel) 25 mg PO BID [facility] Last Admin: 03/25/18 17:37 Dose: 25 mg - Labs Labs: 03/25/18 07:06 03/25/18 07:06 PT 10.4 SECONDS (9.7-12.2) 03/23/18 09:24 INR 1.0 03/23/18 09:24 APTT 19 SECONDS (21-34) L 03/23/18 09:24
[2018-03-26] MEDS: Sodium Chloride 0.45% 1,000 ML IV SCH ×3 (06:17→19:40)
[2018-03-26 07:28] LABS: HEMOGLOBIN 14.1 g/dL (11.0-16.0); MEAN CORPUSCULAR HEMOGLOBIN 27.5 pg (27.0-31.0); RBC 5.14 Mil/uL (3.80-5.20); RED CELL DISTRIBUTION WIDTH 14.5 % (11.5-14.5); WHITE BLOOD COUNT 6.5 K/uL (4.8-10.8)
[2018-03-26] MEDS: (Novolin R) Insulin Human Regular 100 units/ml vial SC SCH ×4 (07:32→23:14)
[2018-03-26 07:51] LABS: ALB/GLOB RATIO 1.2 (1.0-2.1); ALBUMIN 3.8 g/dL (3.5-5.0); ALT/SGPT 19 U/L (9-52); AST/SGOT 22 U/L (14-36); BLOOD UREA NITROGEN 20 mg/dL (7-17); CALCIUM 9.4 mg/dl (8.6-10.4); GFR AFRICAN-AMERICAN > 60; GFR NON-AFRICAN AMERICAN 55
[2018-03-26] MEDS: Nystatin 100,000 Units/gm Cream(15 gm) TOP SCH ×3 (09:59→17:42)
[2018-03-26] MEDS ORDERED: DiphenhydrAMINE 50 mg/ml Inj IVP ONE (11:15)
--- NOTE | 2018-03-26 11:38 | PN ---
DATE: 03/26/2018 SUBJECTIVE: I saw her resting comfortably in bed. She is now . She is getting ready to have surgery, but now it has been postponed to Friday. She does have a cardiac cath and possible stent placement today because of ischemic changes. PHYSICAL EXAMINATION: VITAL SIGNS: She has 98.4 temperature, 65 pulse, 142/72 blood pressure, 20 respiratory rate, 95% O2 sat on room air. GENERAL: She is alert, comfortable, and no complaints. No pain. No chest pain or shortness of breath. No abdominal pain. She is smiling, in good spirits. MEDICATIONS: She is currently on Ativan, Bactroban, Depakote, heparin, Lasix, Lexapro, Lyrica, Motrin, Mycostatin, Novolin, Seroquel, IV fluids, Zestril. LABORATORY DATA: She has a 6.1 white count, 13.1 hemoglobin, 39.9 hematocrit, 177 platelets. She has a 146 sodium, potassium 3.7, BUN 22, creatinine 1.2, which is better. She has a 44 GFR. Last blood sugar was 133. Calcium 9.4, total bilirubin is 0.3, AST is 16, ALT is 21, alk phos 108, total protein 6.6. PLAN: So, the plan is to have a cardiac cath today since the myocardial perfusion scan showed large stress-induced ischemia, inferolateral wall. She might need some stents and then tomorrow she will go for a fem-pop with Dr. Lam. Continue with aggressive treatment and care severe PAD. We will order labs again tomorrow. I discussed with Dr. Leavitt and Dr. Lam. Haja Pink DO MTDD
[2018-03-26] MEDS ORDERED: Lidocaine 2% MPF (5 ml) Inj ONE (11:43)
[2018-03-26] MEDS ORDERED: Verapamil 2 ML ONE (11:43)
[2018-03-26] MEDS ORDERED: Midazolam 2 MG/2 ML VIAL ONE (11:43)
[2018-03-26] MEDS ORDERED: Nitroglycerin 50mg in D5W 50 MG/250 ML BOTTLE IV ONE (11:44)
[2018-03-26] MEDS ORDERED: Iodixanol 320 MG/ML 200 ML BOTTLE IV ONE (11:44)
[2018-03-26] MEDS ORDERED: Iodixanol 320 MG/ML 100 ML BOTTLE IV ONE ×2 (11:44→12:25)
[2018-03-26] MEDS ORDERED: Sodium Chloride 0.9% 500 ML IV SCH (12:45)
--- NOTE | 2018-03-26 14:54 | CP.PCM.PN ---
Subjective - Date & Time of Evaluation Date of Evaluation: 03/26/18 Time of Evaluation: 14:53 - Subjective Subjective: Surgery: Dr. Lam Went to examined pt. 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 Will plan for OR tomorrow for bypass. NPO at midnight. Zemaitis PGY4 Objective - Vital Signs/Intake and Output Vital Signs (last 24 hours): Temp Pulse Resp BP Pulse Ox 98.4 F 65 20 142/73 95 03/25/18 23:26 03/25/18 23:26 03/25/18 23:26 03/25/18 23:26 03/25/18 23:26 Intake and Output: 03/26/18 03/26/18 06:59 18:59 Intake Total 1170 Balance 1170 - Medications Medications: Current Medications Divalproex Sodium (Depakote Er) 250 mg PO HS [facility] Last Admin: 03/25/18 21:23 Dose: 250 mg Escitalopram Oxalate (Lexapro) 10 mg PO DAILY [facility] Last Admin: 03/26/18 09:58 Dose: Not Given Furosemide (Lasix) 40 mg PO BID [facility] Last Admin: 03/26/18 09:58 Dose: Not Given Heparin Sodium (Porcine) (Heparin) 5,000 units SC Q12 [facility] Last Admin: 03/25/18 11:21 Dose: 5,000 units Sodium Chloride (Sodium Chloride 0.45%) 1,000 mls @ 75 mls/hr IV .[id number] [facility] Last Admin: 03/25/18 23:12 Dose: 75 mls/hr Sodium Chloride (Sodium Chloride 0.9%) 500 mls @ 0 mls/hr IV .Q0M [facility] PRN Reason: Per Protocol Ibuprofen (Motrin Tab) 800 mg PO Q6H PRN PRN Reason: Pain, moderate (4-7) Insulin Human Regular (Novolin R) 0 unit SC ACHS [facility] Last Admin: 03/26/18 11:23 Dose: Not Given Lisinopril (Zestril) 5 mg PO DAILY [facility] Last Admin: 03/26/18 09:59 Dose: Not Given Lorazepam (Ativan) 1 mg PO QID PRN PRN Reason: Anxiety Last Admin: 03/25/18 21:32 Dose: 1 mg Mupirocin (Bactroban Ointment) 0 gm TOP BID [facility] Last Admin: 03/26/18 09:58 Dose: Not Given Nystatin (Mycostatin Cream) 0 ea TOP TID [facility] Last Admin: 03/26/18 14:08 Dose: Not Given Pregabalin (Lyrica) 50 mg PO TID [facility] Last Admin: 03/26/18 14:08 Dose: Not Given Quetiapine Fumarate (Seroquel) 25 mg PO BID [facility] Last Admin: 03/26/18 09:59 Dose: Not Given - Labs Labs: 03/26/18 07:20 03/26/18 07:20 PT 10.4 SECONDS (9.7-12.2) 03/23/18 09:24 INR 1.0 03/23/18 09:24 APTT 19 SECONDS (21-34) L 03/23/18 09:24
--- NOTE | 2018-03-26 23:05 | CP.PCM.PN ---
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 Normal LV systolic function RECOMMENDATIONS: Patient may go for Fem-pop surgery under general anesthesia with mild to moderate risk. Case discussed with Dr Gray(interventionalist). Cine review with Dr Gray for second opinion. Patient may go for surgery in AM and the stenting of OM-1 at a later date. Case also discussed with Dr Lam. Objective - Vital Signs/Intake and Output Vital Signs (last 24 hours): Temp Pulse Resp BP Pulse Ox 98.9 F 63 20 134/65 96 03/26/18 16:30 03/26/18 16:30 03/26/18 16:30 03/26/18 17:35 03/26/18 16:30 - Medications Medications: Current Medications Divalproex Sodium (Depakote Er) 250 mg PO HS [facility] Last Admin: 03/26/18 22:14 Dose: 250 mg Escitalopram Oxalate (Lexapro) 10 mg PO DAILY [facility] Last Admin: 03/26/18 09:58 Dose: Not Given Furosemide (Lasix) 40 mg PO BID [facility] Last Admin: 03/26/18 17:35 Dose: 40 mg Heparin Sodium (Porcine) (Heparin) 5,000 units SC Q12 [facility] Last Admin: 03/25/18 11:21 Dose: 5,000 units Sodium Chloride (Sodium Chloride 0.45%) 1,000 mls @ 75 mls/hr IV .[id number] [facility] Last Admin: 03/26/18 19:40 Dose: Not Given Sodium Chloride (Sodium Chloride 0.9%) 500 mls @ 0 mls/hr IV .Q0M [facility] PRN Reason: Per Protocol Ibuprofen (Motrin Tab) 800 mg PO Q6H PRN PRN Reason: Pain, moderate (4-7) Insulin Human Regular (Novolin R) 0 unit SC ACHS [facility] Last Admin: 03/26/18 17:00 Dose: 9 units Lisinopril (Zestril) 5 mg PO DAILY [facility] Last Admin: 03/26/18 09:59 Dose: Not Given Lorazepam (Ativan) 1 mg PO QID PRN PRN Reason: Anxiety Last Admin: 03/26/18 22:12 Dose: 1 mg Mupirocin (Bactroban Ointment) 0 gm TOP BID [facility] Last Admin: 03/26/18 17:42 Dose: 1 applic Nystatin (Mycostatin Cream) 0 ea TOP TID [facility] Last Admin: 03/26/18 17:42 Dose: 1 applic Pregabalin (Lyrica) 50 mg PO TID [facility] Last Admin: 03/26/18 17:34 Dose: 50 mg Quetiapine Fumarate (Seroquel) 25 mg PO BID [facility] Last Admin: 03/26/18 17:35 Dose: 25 mg - Labs Labs: 03/26/18 07:20 03/26/18 07:20 PT 10.4 SECONDS (9.7-12.2) 03/23/18 09:24 INR 1.0 03/23/18 09:24 APTT 19 SECONDS (21-34) L 03/23/18 09:24
[2018-03-27 06:50] LABS: HEMOGLOBIN 13.6 g/dL (11.0-16.0); MEAN CELL VOLUME 80.7 fL (81.0-99.0); MEAN CORPUSCULAR HGB CONC 33.4 g/dL (33.0-37.0); MEAN PLATELET VOLUME 10.1 fL (7.2-11.7); RBC 5.03 Mil/uL (3.80-5.20); RED CELL DISTRIBUTION WIDTH 14.2 % (11.5-14.5); WHITE BLOOD COUNT 11.7 K/uL (4.8-10.8)
[2018-03-27 06:52] LABS: PROTHROMBIN TIME 10.8 SECONDS (9.7-12.2)
[2018-03-27] MEDS: Sodium Chloride 0.45% 1,000 ML IV SCH ×2 (07:05→08:06)
[2018-03-27] MEDS: (Novolin R) Insulin Human Regular 100 units/ml vial SC SCH ×4 (07:20→21:40)
[2018-03-27 08:34] LABS: ALB/GLOB RATIO 1.4 (1.0-2.1); CALCIUM 10.1 mg/dl (8.6-10.4)
[2018-03-27] MEDS: Nystatin 100,000 Units/gm Cream(15 gm) TOP SCH ×3 (09:29→17:30)
[2018-03-27] MEDS ORDERED: Papaverine Hydrochloride 30 mg/ml (2ml) ONE (09:59)
[2018-03-27] MEDS ORDERED: ceFAZolin IV 2 gm in Dextrose 0 GM/0 ML BAG IVPB ONE (09:59)
[2018-03-27] MEDS ORDERED: Iodixanol 320 MG/ML 200 ML BOTTLE IV ONE (09:59)
[2018-03-27] MEDS ORDERED: ceFAZolin 1 gm in NS 0 GM/0 ML BAG IVPB ONE (10:00)
[2018-03-27] MEDS ORDERED: HEPARIN-NS 5,000 UNITS/500 ML 10,000 UNIT/1,000 ML BAG IV ONE (10:01)
[2018-03-27] MEDS ORDERED: Lactated Ringer's 1,000 ML IV ONE ×2 (10:30)
[2018-03-27] MEDS ORDERED: DiphenhydrAMINE 50 mg/ml Inj IVP ONE (10:30)
[2018-03-27] MEDS ORDERED: MethylPREDNISolone 40 mg Vial IVP ONE (11:00)
[2018-03-27] MEDS ORDERED: Thrombin Topical 20,000 Intl Units Spray Kit TOP ONE (11:17)
--- NOTE | 2018-03-27 11:32 | PN ---
DATE: 03/27/2018 SUBJECTIVE: She is resting comfortably in bed. She had a cardiac cath yesterday, and she did well. She is okay to go for cardiac cath. She is comfortable in bed, looking well. She is going for fem-pop surgery this morning with Dr. Lam. PHYSICAL EXAMINATION: VITAL SIGNS: She has 99.1 temp, 76 pulse, 135/80 blood pressure, 20 respiratory rate, 96% O2 sat on room air. HEENT: Head is atraumatic and normocephalic. HEART: Regular rate. LUNGS: Decreased breath sounds, but clear. ABDOMEN: Soft. EXTREMITIES: She has a right BKA and a left ischemic leg. MEDICATIONS: She is currently on Ativan, Bactroban cream, Depakote, heparin, Lasix, Lexapro, Lyrica, Motrin, Mycostatin, Novolin, Seroquel, IV fluids, and Zestril. LABORATORY DATA: She has 6.5 white count, 14.1 hemoglobin, 41.6 hematocrit with 195 platelets, 140 sodium, potassium 3.8, BUN 20, creatinine 1, GFR is 55, blood sugar was high at 378 with insulin coverage. Calcium is 9.4, total ronald is 0.5, AST is 22, ALT is 19, alkaline phosphatase 115, total protein is 7. She has been seen by Cardiology, Surgery. She is medically optimized for her procedure with Dr. Lam today. We will check her labs tomorrow. Haja Pink DO
[2018-03-27] MEDS ORDERED: ceFAZolin IV 1 gm in Dextrose 0 GM/0 ML BAG IVPB ONE (11:44)
[2018-03-27] MEDS: MethylPREDNISolone 40 mg Vial IVP SCH (17:28)
[2018-03-28] MEDS: MethylPREDNISolone 40 mg Vial IVP SCH ×4 (00:40→21:40)
[2018-03-28] MEDS: Sodium Chloride 0.45% 1,000 ML IV SCH ×3 (01:00→15:10)
[2018-03-28 07:02] LABS: BASO % 0.1 % (0.0-2.0); HEMOGLOBIN 13.6 g/dL (11.0-16.0); LYMPH # 0.8 K/uL (1.0-4.3); LYMPH % 6.8 % (20.0-40.0); MEAN CELL VOLUME 80.6 fL (81.0-99.0); MEAN CORPUSCULAR HEMOGLOBIN 26.9 pg (27.0-31.0); MEAN CORPUSCULAR HGB CONC 33.3 g/dL (33.0-37.0); MEAN PLATELET VOLUME 10.4 fL (7.2-11.7); MONO # 0.1 K/uL (0.0-0.8); NEUT # 10.8 K/uL (1.8-7.0); NEUT % 92.1 % (50.0-75.0); NRBC % 0.1 % (0.0-2.0); PLATELET COUNT 190 K/uL (130-400); RBC 5.06 Mil/uL (3.80-5.20); RED CELL DISTRIBUTION WIDTH 14.3 % (11.5-14.5); WHITE BLOOD COUNT 11.7 K/uL (4.8-10.8)
[2018-03-28] MEDS: (Novolin R) Insulin Human Regular 100 units/ml vial SC SCH ×4 (07:33→21:47)
--- NOTE | 2018-03-28 08:08 | CP.PCM.PN ---
Subjective - Date & Time of Evaluation Date of Evaluation: 03/28/18 Time of Evaluation: 06:45 - Subjective Subjective: Patient seen and examined. No acute events over night. Skin rash improved. No complaints. Objective - Vital Signs/Intake and Output Vital Signs (last 24 hours): Temp Pulse Resp BP Pulse Ox 976 F H 61 18 111/78 99 03/27/18 23:19 03/27/18 23:19 03/27/18 23:19 03/27/18 23:19 03/27/18 23:19 Intake and Output: 03/28/18 03/28/18 06:59 18:59 Intake Total 830 Balance 830 - Medications Medications: Current Medications Diphenhydramine HCl (Benadryl) 25 mg PO Q6 [facility] Last Admin: 03/28/18 05:55 Dose: 25 mg Divalproex Sodium (Depakote Er) 250 mg PO HS [facility] Last Admin: 03/27/18 21:33 Dose: 250 mg Escitalopram Oxalate (Lexapro) 10 mg PO DAILY [facility] Last Admin: 03/27/18 09:28 Dose: Not Given Furosemide (Lasix) 40 mg PO BID [facility] Last Admin: 03/27/18 17:38 Dose: 40 mg Heparin Sodium (Porcine) (Heparin) 5,000 units SC Q12 [facility] Last Admin: 03/25/18 11:21 Dose: 5,000 units Sodium Chloride (Sodium Chloride 0.45%) 1,000 mls @ 75 mls/hr IV .[id number] [facility] Last Admin: 03/28/18 01:00 Dose: 75 mls/hr Sodium Chloride (Sodium Chloride 0.9%) 500 mls @ 0 mls/hr IV .Q0M [facility] PRN Reason: Per Protocol Ibuprofen (Motrin Tab) 800 mg PO Q6H PRN PRN Reason: Pain, moderate (4-7) Insulin Human Regular (Novolin R) 0 unit SC ACHS [facility] Last Admin: 03/28/18 07:33 Dose: 12 units Lisinopril (Zestril) 5 mg PO DAILY [facility] Last Admin: 03/27/18 09:29 Dose: Not Given Lorazepam (Ativan) 1 mg PO QID PRN PRN Reason: Anxiety Last Admin: 03/26/18 22:12 Dose: 1 mg Methylprednisolone (Solu-Medrol) 20 mg IVP Q6 [facility] Last Admin: 03/28/18 05:55 Dose: 20 mg Mupirocin (Bactroban Ointment) 0 gm TOP BID [facility] Last Admin: 03/27/18 21:17 Dose: 1 applic Nystatin (Mycostatin Cream) 0 ea TOP TID [facility] Last Admin: 03/27/18 17:30 Dose: 1 applic Pregabalin (Lyrica) 50 mg PO TID [facility] Last Admin: 03/27/18 17:30 Dose: 50 mg Quetiapine Fumarate (Seroquel) 25 mg PO BID [facility] Last Admin: 03/27/18 17:32 Dose: 25 mg - Labs Labs: 03/28/18 06:46 03/27/18 06:36 PT 10.8 SECONDS (9.7-12.2) 03/27/18 06:36 INR 1.0 03/27/18 06:36 APTT 32 SECONDS (21-34) 03/27/18 06:36 - Constitutional Appears: No Acute Distress - Head Exam Head Exam: NORMOCEPHALIC - Eye Exam Eye Exam: EOMI, Normal appearance - ENT Exam ENT Exam: Mucous Membranes Moist - Respiratory Exam Respiratory Exam: NORMAL BREATHING PATTERN - Cardiovascular Exam Cardiovascular Exam: +S1, +S2 - GI/Abdominal Exam GI & Abdominal Exam: Soft - Extremities Exam Extremities Exam: absent: Pedal Edema, Tenderness - Neurological Exam Neurological Exam: Alert, Awake, Oriented x3 - Psychiatric Exam Psychiatric exam: Normal Mood - Skin Skin Exam: Dry, Intact, Warm Assessment and Plan - Assessment and Plan (Free Text) Assessment: 72F with PVD, fempop sx cancelled 2/2 allergic reaction to contrast Plan: Will reschedule fem-pop surgery for Saturday 03/31 C/w DM diet DVT ppx Medical management per primary team Further recs per Dr. Carole Navas PGY3
[2018-03-28 08:15] LABS: ALB/GLOB RATIO 1.2 (1.0-2.1); ALBUMIN 3.9 g/dL (3.5-5.0); CALCIUM 10.2 mg/dl (8.6-10.4)
[2018-03-28 08:53] LABS: LYMPHOCYTE 6 % (20-40); MONOCYTE 1 % (0-10); NEUTROPHIL 93 % (50-75); PLATELET ESTIMATE NORMAL (NORMAL); TOTAL CELLS COUNTED 100
[2018-03-28 08:54] LABS: ANISOCYTOSIS SLIGHT; LARGE PLATELETS PRESENT; TOXIC GRANULATION PRESENT
[2018-03-28] MEDS: Nystatin 100,000 Units/gm Cream(15 gm) TOP SCH ×3 (09:42→17:27)
--- NOTE | 2018-03-28 13:54 | PN ---
DATE: 03/28/2018 SUBJECTIVE: She is resting comfortably in bed. Apparently, the cardiac cath is too much for her kidneys with the dye and actually she has to have IV fluids for three days fem-pop bypass on her left leg. She is on Ativan, Bactroban cream, Benadryl, Depakote, Lasix, Lexapro, Lyrica, Motrin, Mycostatin, Novolin, Seroquel, IV fluids, Solu-Medrol, and Zestril. PHYSICAL EXAMINATION: VITAL SIGNS: Temperature 97.6, 111/78 blood pressure, 18 respiratory rate, and 99% O2 sat on room air. GENERAL: She is lying in bed. She is alert, comfortable, and understands the situation. HEENT: Head is atraumatic and normocephalic. Throat is moist. NECK: Supple. HEART: Regular rate. LUNGS: Decreased breath sounds, but clear. EXTREMITIES: Right leg BKA. Left leg is getting ready for fem-pop. No edema. Rash on her chest is fading. LABORATORY DATA: She has 11.7 white count, could be from the steroids, hemoglobin 13.6, hematocrit 40.8, and platelets are 190. She has 140 sodium, potassium 4.4, BUN is 27, creatinine 1.1, improving. She has a GFR of 49, it was 44, getting better. Last blood sugar was 301 from the steroids. Calcium is 7.2, total bili is 0.4, AST is 23, ALT is 22, alk phos 113, albumin is 3.9. I will decrease her steroids prior to wean her off that. ASSESSMENT AND PLAN: The plan I believe is Friday for the fem-pop. We will check her labs and then decrease the steroids. Continue with aggressive treatment and care. She has numerous issues. left leg, right below knee amputation, left ischemic leg, coronary artery disease, and now with dye issue which is improving. Haja Pink DO [facility]
[2018-03-29] MEDS: Sodium Chloride 0.45% 1,000 ML IV SCH (05:26)
[2018-03-29] MEDS: MethylPREDNISolone 40 mg Vial IVP SCH ×2 (06:01→17:42)
[2018-03-29 07:38] LABS: BASO % 0.2 % (0.0-2.0); LYMPH # 1.3 K/uL (1.0-4.3); LYMPH % 8.7 % (20.0-40.0); MEAN CELL VOLUME 80.7 fL (81.0-99.0); MEAN CORPUSCULAR HEMOGLOBIN 27.3 pg (27.0-31.0); MEAN CORPUSCULAR HGB CONC 33.9 g/dL (33.0-37.0); MONO # 0.5 K/uL (0.0-0.8); MONO % 3.5 % (0.0-10.0); NEUT # 12.7 K/uL (1.8-7.0); NEUT % 87.6 % (50.0-75.0); PLATELET COUNT 203 K/uL (130-400); RBC 5.11 Mil/uL (3.80-5.20); RED CELL DISTRIBUTION WIDTH 14.5 % (11.5-14.5); WHITE BLOOD COUNT 14.5 K/uL (4.8-10.8)
[2018-03-29 08:00] LABS: ALB/GLOB RATIO 1.3 (1.0-2.1); ALBUMIN 3.8 g/dL (3.5-5.0); CALCIUM 9.8 mg/dl (8.6-10.4)
[2018-03-29] MEDS: (Novolin R) Insulin Human Regular 100 units/ml vial SC SCH ×4 (08:30→21:59)
--- NOTE | 2018-03-29 08:43 | CP.PCM.PN ---
Subjective - Date & Time of Evaluation Date of Evaluation: 03/29/18 Time of Evaluation: 08:12 - Subjective Subjective: Vascular Surgery Progress Note for Dr. Lam 72F seen and evaluated this morning at bedside. No acute events overnight. No current complaints. Denies f/c, n/v/d, SOB, CP, worsening rash, itchiness. Objective - Vital Signs/Intake and Output Vital Signs (last 24 hours): Temp Pulse Resp BP Pulse Ox 98.8 F 63 20 134/75 96 03/28/18 23:30 03/28/18 23:30 03/28/18 23:30 03/28/18 23:30 03/28/18 23:30 Intake and Output: 03/29/18 03/29/18 06:59 18:59 Intake Total 1450 Balance 1450 - Medications Medications: Current Medications Diphenhydramine HCl (Benadryl) 25 mg PO Q6 [facility] Last Admin: 03/29/18 06:00 Dose: 25 mg Divalproex Sodium (Depakote Er) 250 mg PO HS [facility] Last Admin: 03/28/18 21:35 Dose: 250 mg Escitalopram Oxalate (Lexapro) 10 mg PO DAILY [facility] Last Admin: 03/28/18 09:41 Dose: 10 mg Furosemide (Lasix) 40 mg PO BID [facility] Last Admin: 03/28/18 17:20 Dose: 40 mg Heparin Sodium (Porcine) (Heparin) 5,000 units SC Q12 [facility] Last Admin: 03/28/18 21:36 Dose: 5,000 units Sodium Chloride (Sodium Chloride 0.9%) 500 mls @ 0 mls/hr IV .Q0M [facility] PRN Reason: Per Protocol Ibuprofen (Motrin Tab) 800 mg PO Q6H PRN PRN Reason: Pain, moderate (4-7) Insulin Human Regular (Novolin R) 0 unit SC ACHS [facility] Last Admin: 03/28/18 21:47 Dose: 18 units Lisinopril (Zestril) 5 mg PO DAILY [facility] Last Admin: 03/28/18 09:41 Dose: 5 mg Lorazepam (Ativan) 1 mg PO QID PRN PRN Reason: Anxiety Last Admin: 03/26/18 22:12 Dose: 1 mg Methylprednisolone (Solu-Medrol) 20 mg IVP Q12H [facility] Mupirocin (Bactroban Ointment) 0 gm TOP BID [facility] Last Admin: 03/28/18 17:28 Dose: 1 applic Nystatin (Mycostatin Cream) 0 ea TOP TID [facility] Last Admin: 03/28/18 17:27 Dose: 1 applic Pregabalin (Lyrica) 50 mg PO TID [facility] Last Admin: 03/28/18 17:20 Dose: 50 mg Quetiapine Fumarate (Seroquel) 25 mg PO BID [facility] Last Admin: 03/28/18 17:20 Dose: 25 mg Sitagliptin Phosphate (Januvia) 25 mg PO DAILY [facility] - Labs Labs: 03/29/18 07:16 03/29/18 07:16 PT 10.8 SECONDS (9.7-12.2) 03/27/18 06:36 INR 1.0 03/27/18 06:36 APTT 32 SECONDS (21-34) 03/27/18 06:36 - Constitutional Appears: Well, Non-toxic, No Acute Distress - Head Exam Head Exam: ATRAUMATIC, NORMAL INSPECTION, NORMOCEPHALIC - Respiratory Exam Respiratory Exam: Clear to Ausculation Bilateral, NORMAL BREATHING PATTERN - Cardiovascular Exam Cardiovascular Exam: REGULAR RHYTHM, +S1, +S2. absent: Murmur - GI/Abdominal Exam GI & Abdominal Exam: Soft, Normal Bowel Sounds. absent: Tenderness - Neurological Exam Neurological Exam: Alert, Awake - Skin Skin Exam: Dry, Intact, Normal Color, Warm. absent: Erythema, Rash, Vesicles Assessment and Plan - Assessment and Plan (Free Text) Assessment: 72F scheduled for Fem-Pop Bypass, delayed 2/2 Rash s/p Cath Plan: OR Friday Monitor rash - improving [place] Protocol Friday Medical management per Primary team further recs per Dr. Carole Reilly PGY1
--- NOTE | 2018-03-29 09:44 | CP.PCM.PN ---
Subjective - Date & Time of Evaluation Date of Evaluation: 03/27/18 Time of Evaluation: 08:15 - Subjective Subjective: no late complications from cardiac cath NAD hemodynamically stable Objective - Vital Signs/Intake and Output Vital Signs (last 24 hours): Temp Pulse Resp BP Pulse Ox 98.3 F 74 20 160/80 H 95 03/29/18 08:00 03/29/18 08:00 03/29/18 08:00 03/29/18 08:00 03/29/18 08:00 Intake and Output: 03/29/18 03/29/18 06:59 18:59 Intake Total 1450 Balance 1450 - Medications Medications: Current Medications Diphenhydramine HCl (Benadryl) 25 mg PO Q6 [facility] Last Admin: 03/29/18 06:00 Dose: 25 mg Divalproex Sodium (Depakote Er) 250 mg PO HS [facility] Last Admin: 03/28/18 21:35 Dose: 250 mg Escitalopram Oxalate (Lexapro) 10 mg PO DAILY [facility] Last Admin: 03/28/18 09:41 Dose: 10 mg Furosemide (Lasix) 40 mg PO BID [facility] Last Admin: 03/28/18 17:20 Dose: 40 mg Heparin Sodium (Porcine) (Heparin) 5,000 units SC Q12 [facility] Last Admin: 03/28/18 21:36 Dose: 5,000 units Sodium Chloride (Sodium Chloride 0.9%) 500 mls @ 0 mls/hr IV .Q0M [facility] PRN Reason: Per Protocol Ibuprofen (Motrin Tab) 800 mg PO Q6H PRN PRN Reason: Pain, moderate (4-7) Insulin Human Regular (Novolin R) 0 unit SC ACHS [facility] Last Admin: 03/29/18 08:30 Dose: 6 units Lisinopril (Zestril) 5 mg PO DAILY [facility] Last Admin: 03/28/18 09:41 Dose: 5 mg Lorazepam (Ativan) 1 mg PO QID PRN PRN Reason: Anxiety Last Admin: 03/26/18 22:12 Dose: 1 mg Methylprednisolone (Solu-Medrol) 20 mg IVP Q12H [facility] Mupirocin (Bactroban Ointment) 0 gm TOP BID [facility] Last Admin: 03/28/18 17:28 Dose: 1 applic Nystatin (Mycostatin Cream) 0 ea TOP TID [facility] Last Admin: 03/28/18 17:27 Dose: 1 applic Pregabalin (Lyrica) 50 mg PO TID [facility] Last Admin: 03/28/18 17:20 Dose: 50 mg Quetiapine Fumarate (Seroquel) 25 mg PO BID [facility] Last Admin: 03/28/18 17:20 Dose: 25 mg Sitagliptin Phosphate (Januvia) 25 mg PO DAILY [facility] - Labs Labs: 03/29/18 07:16 03/29/18 07:16 PT 10.8 SECONDS (9.7-12.2) 03/27/18 06:36 INR 1.0 03/27/18 06:36 APTT 32 SECONDS (21-34) 03/27/18 06:36 - Constitutional Appears: Non-toxic - Head Exam Head Exam: NORMAL INSPECTION - Eye Exam Eye Exam: absent: Scleral icterus - Neck Exam Neck Exam: absent: Lymphadenopathy - Respiratory Exam Respiratory Exam: Clear to Ausculation Bilateral - Cardiovascular Exam Cardiovascular Exam: REGULAR RHYTHM - GI/Abdominal Exam GI & Abdominal Exam: Soft. absent: Tenderness - Extremities Exam Extremities Exam: absent: Pedal Edema - Neurological Exam Neurological Exam: Alert, Oriented x3 Assessment and Plan - Assessment and Plan (Free Text) Assessment: PVD CAD T2dm Plan: Scheduled for fem-pop today Medically cleared for surgery
[2018-03-29 10:38] LABS: LYMPHOCYTE 6 % (20-40); MONOCYTE 2 % (0-10); NEUTROPHIL 92 % (50-75); PLATELET ESTIMATE NORMAL (NORMAL); TOTAL CELLS COUNTED 100
[2018-03-29] MEDS: Nystatin 100,000 Units/gm Cream(15 gm) TOP SCH ×3 (10:55→17:46)
--- NOTE | 2018-03-29 13:26 | PN ---
DATE: 03/29/2018 SUBJECTIVE: She is doing well in bed. She is feeling well. She is waiting for this procedure to be done Friday or Friday with Dr. Lam. Her blood sugars have been high, we have to adjust her insulin. MEDICATIONS: She is on Ativan, Bactroban cream, Benadryl, Depakote, heparin, Lasix, Lexapro, Lyrica, Motrin, Mycostatin cream, Novolin, Seroquel, IV fluids, Solu-Medrol which is why the blood sugars are elevated; decrease Solu-Medrol and Zestril. She does have rash; that is why she is on Solu-Medrol. PHYSICAL EXAMINATION: VITAL SIGNS: She has 98.8 temp, 53 pulse, 134/75 blood pressure, 20 respiratory rate, and 96% O2 sat on 2 L nasal cannula. HEENT: Head is atraumatic and normocephalic. HEART: Regular rate. LUNGS: Decreased breath sounds but clear. ABDOMEN: Soft. EXTREMITIES: She has had a PAD of the left leg with ischemic left leg with right BKA. ASSESSMENT AND PLAN: We are keeping her here for the procedure for fem-pop with Dr. Lam, and hopefully that will be done in the next 24 to 48 hours. She had a cardiac cath with some renal problems and hopefully, she will do well. We will check her labs. Haja Pink DO [facility]
--- NOTE | 2018-03-29 23:10 | CP.PCM.PN ---
Subjective - Date & Time of Evaluation Date of Evaluation: 03/28/18 Time of Evaluation: 09:25 - Subjective Subjective: had allergic skin reaction to contrast prompting cancellation of fempop rash resolving at time seen Objective - Vital Signs/Intake and Output Vital Signs (last 24 hours): Temp Pulse Resp BP Pulse Ox 98.3 F 74 20 160/80 H 95 03/29/18 08:00 03/29/18 08:00 03/29/18 08:00 03/29/18 17:40 03/29/18 08:00 Intake and Output: 03/29/18 03/30/18 18:59 06:59 Intake Total 900 Balance 900 - Medications Medications: Current Medications Diphenhydramine HCl (Benadryl) 25 mg PO Q6 [facility] Last Admin: 03/29/18 17:39 Dose: 25 mg Divalproex Sodium (Depakote Er) 250 mg PO HS [facility] Last Admin: 03/29/18 21:57 Dose: 250 mg Escitalopram Oxalate (Lexapro) 10 mg PO DAILY [facility] Last Admin: 03/29/18 10:49 Dose: 10 mg Furosemide (Lasix) 40 mg PO BID [facility] Last Admin: 03/29/18 17:40 Dose: 40 mg Heparin Sodium (Porcine) (Heparin) 5,000 units SC Q12 [facility] Last Admin: 03/29/18 21:56 Dose: 5,000 units Ibuprofen (Motrin Tab) 800 mg PO Q6H PRN PRN Reason: Pain, moderate (4-7) Insulin Human Regular (Novolin R) 0 unit SC ACHS [facility] Last Admin: 03/29/18 21:59 Dose: 6 units Lisinopril (Zestril) 5 mg PO DAILY [facility] Last Admin: 03/29/18 10:53 Dose: 5 mg Lorazepam (Ativan) 1 mg PO QID PRN PRN Reason: Anxiety Last Admin: 03/26/18 22:12 Dose: 1 mg Methylprednisolone (Solu-Medrol) 20 mg IVP Q12H [facility] Last Admin: 03/29/18 17:42 Dose: 20 mg Mupirocin (Bactroban Ointment) 0 gm TOP BID [facility] Last Admin: 03/29/18 17:46 Dose: 1 applic Nystatin (Mycostatin Cream) 0 ea TOP TID [facility] Last Admin: 03/29/18 17:46 Dose: 1 applic Pregabalin (Lyrica) 50 mg PO TID [facility] Last Admin: 03/29/18 17:40 Dose: 50 mg Quetiapine Fumarate (Seroquel) 25 mg PO BID [facility] Last Admin: 03/29/18 17:40 Dose: 25 mg Sitagliptin Phosphate (Januvia) 25 mg PO DAILY [facility] Last Admin: 03/29/18 10:49 Dose: 25 mg - Labs Labs: 03/29/18 07:16 03/29/18 07:16 PT 10.8 SECONDS (9.7-12.2) 03/27/18 06:36 INR 1.0 03/27/18 06:36 APTT 32 SECONDS (21-34) 03/27/18 06:36 - Constitutional Appears: Non-toxic - Head Exam Head Exam: NORMAL INSPECTION - Eye Exam Eye Exam: absent: Scleral icterus - ENT Exam ENT Exam: Mucous Membranes Moist - Neck Exam Neck Exam: Full ROM - Respiratory Exam Respiratory Exam: Clear to Ausculation Bilateral - Cardiovascular Exam Cardiovascular Exam: REGULAR RHYTHM - GI/Abdominal Exam GI & Abdominal Exam: Soft - Extremities Exam Extremities Exam: absent: Pedal Edema Additional comments: s/p BKA - Neurological Exam Neurological Exam: Alert, Oriented x3 Assessment and Plan - Assessment and Plan (Free Text) Assessment: Contrast allergic reaction PVD CAD T2dm Plan: Surgery re-scheduled 03/31/2018. Cont meds
--- NOTE | 2018-03-29 23:18 | CP.PCM.PN ---
Subjective - Date & Time of Evaluation Date of Evaluation: 03/29/18 Time of Evaluation: 09:30 - Subjective Subjective: comfortable NAD rash resolved Objective - Vital Signs/Intake and Output Vital Signs (last 24 hours): Temp Pulse Resp BP Pulse Ox 98.3 F 74 20 160/80 H 95 03/29/18 08:00 03/29/18 08:00 03/29/18 08:00 03/29/18 17:40 03/29/18 08:00 Intake and Output: 03/29/18 03/30/18 18:59 06:59 Intake Total 900 Balance 900 - Medications Medications: Current Medications Diphenhydramine HCl (Benadryl) 25 mg PO Q6 [facility] Last Admin: 03/29/18 17:39 Dose: 25 mg Divalproex Sodium (Depakote Er) 250 mg PO HS [facility] Last Admin: 03/29/18 21:57 Dose: 250 mg Escitalopram Oxalate (Lexapro) 10 mg PO DAILY [facility] Last Admin: 03/29/18 10:49 Dose: 10 mg Furosemide (Lasix) 40 mg PO BID [facility] Last Admin: 03/29/18 17:40 Dose: 40 mg Heparin Sodium (Porcine) (Heparin) 5,000 units SC Q12 [facility] Last Admin: 03/29/18 21:56 Dose: 5,000 units Ibuprofen (Motrin Tab) 800 mg PO Q6H PRN PRN Reason: Pain, moderate (4-7) Insulin Human Regular (Novolin R) 0 unit SC ACHS [facility] Last Admin: 03/29/18 21:59 Dose: 6 units Lisinopril (Zestril) 5 mg PO DAILY [facility] Last Admin: 03/29/18 10:53 Dose: 5 mg Lorazepam (Ativan) 1 mg PO QID PRN PRN Reason: Anxiety Last Admin: 03/26/18 22:12 Dose: 1 mg Methylprednisolone (Solu-Medrol) 20 mg IVP Q12H [facility] Last Admin: 03/29/18 17:42 Dose: 20 mg Mupirocin (Bactroban Ointment) 0 gm TOP BID [facility] Last Admin: 03/29/18 17:46 Dose: 1 applic Nystatin (Mycostatin Cream) 0 ea TOP TID [facility] Last Admin: 03/29/18 17:46 Dose: 1 applic Pregabalin (Lyrica) 50 mg PO TID [facility] Last Admin: 03/29/18 17:40 Dose: 50 mg Quetiapine Fumarate (Seroquel) 25 mg PO BID [facility] Last Admin: 03/29/18 17:40 Dose: 25 mg Sitagliptin Phosphate (Januvia) 25 mg PO DAILY [facility] Last Admin: 03/29/18 10:49 Dose: 25 mg - Labs Labs: 03/29/18 07:16 03/29/18 07:16 PT 10.8 SECONDS (9.7-12.2) 03/27/18 06:36 INR 1.0 03/27/18 06:36 APTT 32 SECONDS (21-34) 03/27/18 06:36 - Constitutional Appears: Non-toxic - Head Exam Head Exam: ATRAUMATIC - Eye Exam Eye Exam: absent: Scleral icterus - Neck Exam Neck Exam: Full ROM - Respiratory Exam Respiratory Exam: Clear to Ausculation Bilateral - Cardiovascular Exam Cardiovascular Exam: REGULAR RHYTHM - GI/Abdominal Exam GI & Abdominal Exam: Soft - Extremities Exam Extremities Exam: absent: Pedal Edema - Skin Skin Exam: absent: Rash Assessment and Plan - Assessment and Plan (Free Text) Assessment: Rash 2ndary TO CONTRAST REACTION, resolved PVD CAD T2dm Plan: Cont meds Ok for fempop in the morning
[2018-03-30] MEDS ORDERED: Bisacodyl 5mg EC Tab PO ONE (01:18)
[2018-03-30] MEDS: MethylPREDNISolone 40 mg Vial IVP SCH (05:16)
[2018-03-30 06:59] LABS: ALB/GLOB RATIO 1.5 (1.0-2.1); CALCIUM 9.7 mg/dl (8.6-10.4)
[2018-03-30 07:22] LABS: BASO % 0.1 % (0.0-2.0); HEMOGLOBIN 14.3 g/dL (11.0-16.0); LYMPH # 1.9 K/uL (1.0-4.3); LYMPH % 14.9 % (20.0-40.0); MEAN CELL VOLUME 81.3 fL (81.0-99.0); MEAN CORPUSCULAR HGB CONC 33.2 g/dL (33.0-37.0); MEAN PLATELET VOLUME 10.6 fL (7.2-11.7); MONO # 0.6 K/uL (0.0-0.8); MONO % 4.6 % (0.0-10.0); NEUT # 10.3 K/uL (1.8-7.0); NEUT % 80.4 % (50.0-75.0); RBC 5.3 Mil/uL (3.80-5.20); WHITE BLOOD COUNT 12.9 K/uL (4.8-10.8)
[2018-03-30] MEDS: (Novolin R) Insulin Human Regular 100 units/ml vial SC SCH ×4 (08:13→21:29)
--- NOTE | 2018-03-30 09:49 | CP.PCM.PN ---
Subjective - Date & Time of Evaluation Date of Evaluation: 03/30/18 Time of Evaluation: 09:39 - Subjective Subjective: Vascular Surgery Progress Note for Dr. Lam 72F seen and evaluated this morning at bedside. No acute events overnight. No current complaints. Denies f/c, n/v/d, SOB, CP, worsening rash, itchiness. Objective - Vital Signs/Intake and Output Vital Signs (last 24 hours): Temp Pulse Resp BP Pulse Ox 98.3 F 60 20 175/74 H 96 03/30/18 07:06 03/30/18 07:06 03/30/18 07:06 03/30/18 07:06 03/30/18 07:06 Intake and Output: 03/30/18 03/30/18 06:59 18:59 Intake Total 120 Output Total 0 Balance 120 - Medications Medications: Current Medications Diphenhydramine HCl (Benadryl) 25 mg PO Q6 [facility] Last Admin: 03/30/18 05:17 Dose: 25 mg Divalproex Sodium (Depakote Er) 250 mg PO HS [facility] Last Admin: 03/29/18 21:57 Dose: 250 mg Docusate Sodium (Colace) 100 mg PO DAILY [facility] Last Admin: 03/30/18 01:30 Dose: 100 mg Escitalopram Oxalate (Lexapro) 10 mg PO DAILY [facility] Last Admin: 03/29/18 10:49 Dose: 10 mg Furosemide (Lasix) 40 mg PO BID [facility] Last Admin: 03/29/18 17:40 Dose: 40 mg Heparin Sodium (Porcine) (Heparin) 5,000 units SC Q12 [facility] Last Admin: 03/29/18 21:56 Dose: 5,000 units Ibuprofen (Motrin Tab) 800 mg PO Q6H PRN PRN Reason: Pain, moderate (4-7) Insulin Human Regular (Novolin R) 0 unit SC ACHS [facility] Last Admin: 03/30/18 08:13 Dose: 9 units Lisinopril (Zestril) 5 mg PO DAILY [facility] Last Admin: 03/29/18 10:53 Dose: 5 mg Lorazepam (Ativan) 1 mg PO QID PRN PRN Reason: Anxiety Last Admin: 03/26/18 22:12 Dose: 1 mg Mupirocin (Bactroban Ointment) 0 gm TOP BID [facility] Last Admin: 03/29/18 17:46 Dose: 1 applic Nystatin (Mycostatin Cream) 0 ea TOP TID [facility] Last Admin: 03/29/18 17:46 Dose: 1 applic Pregabalin (Lyrica) 50 mg PO TID [facility] Last Admin: 03/29/18 17:40 Dose: 50 mg Quetiapine Fumarate (Seroquel) 25 mg PO BID [facility] Last Admin: 03/29/18 17:40 Dose: 25 mg Sitagliptin Phosphate (Januvia) 25 mg PO DAILY [facility] Last Admin: 03/29/18 10:49 Dose: 25 mg - Labs Labs: 03/30/18 06:25 03/30/18 06:25 PT 10.8 SECONDS (9.7-12.2) 03/27/18 06:36 INR 1.0 03/27/18 06:36 APTT 32 SECONDS (21-34) 03/27/18 06:36 - Constitutional Appears: Non-toxic, No Acute Distress - Head Exam Head Exam: ATRAUMATIC, NORMOCEPHALIC - Eye Exam Eye Exam: EOMI, Normal appearance - Respiratory Exam Respiratory Exam: Clear to Ausculation Bilateral, NORMAL BREATHING PATTERN - Cardiovascular Exam Cardiovascular Exam: REGULAR RHYTHM, +S1, +S2. absent: Murmur - GI/Abdominal Exam GI & Abdominal Exam: Soft, Normal Bowel Sounds. absent: Tenderness - Extremities Exam Additional comments: R BKA - Neurological Exam Neurological Exam: Alert, Awake, Oriented x3 - Skin Skin Exam: Dry, Normal Color, Warm Additional comments: hematoma medial 1st toe, healing well Assessment and Plan - Assessment and Plan (Free Text) Plan: Assessment: 72F scheduled for Fem-Pop Bypass, delayed 2/2 Rash s/p Cath Plan: OR Friday Monitor rash - improving [place] Protocol Friday, today Medical management per Primary team further recs per Dr. Carole Tuttle PGY1
[2018-03-30] MEDS: Nystatin 100,000 Units/gm Cream(15 gm) TOP SCH ×2 (10:07→20:30)
--- NOTE | 2018-03-30 11:54 | PN ---
DATE: 03/30/2018 SUBJECTIVE: She is resting comfortably in bed. She has no complaint. She knows tomorrow is the day for fem-pop with Dr. Lam. She is nervous. She is on Ativan, Bactroban cream, Benadryl, Colace, Depakote, heparin, Januvia, Lasix, Lexapro, Lyrica, Motrin, nystatin cream, Novolin, Seroquel, Solu-Medrol 20 IV every 12 hours, and Zestril. PHYSICAL EXAMINATION: VITAL SIGNS: She has 98.5 temp, 87 pulse, blood pressure, 20 respiratory rate, and 95% O2 sat on room air. HEENT: Atraumatic and normocephalic. HEART: Regular rate. LUNGS: Decreased breath sounds, but clear. ABDOMEN: Soft. 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 LABORATORY DATA: She has a 14.5 white count from the steroids, which I am going to stop today, 14 hemoglobin, 41.2 hematocrit with 202 platelets. Sodium 140, potassium 3.6, BUN 32, and creatinine 1.2. GFR is 44. Last blood sugar is 323. I will stop the steroids. Calcium is 9.8, total ronald is 0.3, AST is 11, ALT is 14, and alk phos 109. ASSESSMENT AND PLAN: She is prepared for her surgery tomorrow. She is seen by Cardiology. We will check her labs tomorrow, discontinue the steroids as the procedure tomorrow morning. Haja Pink DO MTDD
--- NOTE | 2018-03-30 13:15 | CARDCATH ---
PROCEDURE DATE: 03/26/2018 REFERRING PHYSICIAN: Haja Pink DO DOUBLE CUT SAWYER: Mitch Leavitt MD INDICATIONS: Shortness of breath on exertion, preoperative cardiovascular evaluation. PROCEDURES: Left heart catheterization, coronary arteriogram, and left ventriculogram. DESCRIPTION OF PROCEDURE: After an informed consent, the patient was brought to the cardiac laboratory immunologist and draped in the usual sterile fashion. Subsequently, the patient received subcutaneous lidocaine to the right radial artery for local anesthesia. The right radial artery was accessed in the wrist area using a micropuncture needle. Using Seldinger technique, a 16-Upper Sorbian sheath was placed. Using preshaped catheters, angiograms were taken of the coronary arteries and left ventriculogram was done. RESULTS: CORONARY ARTERIOGRAM: The left main artery was free of any disease and bifurcated to LAD and left circumflex artery. There is a 50% stenosis in the mid LAD lesion. The left circumflex artery revealed a 70% to 80% stenosis in the first obtuse marginal. The right coronary artery is a dominant vessel and is totally occluded in the mid region. There is a collateral filling the distal RCA and PDA from the left anterior descending artery. LEFT VENTRICULOGRAM: The left ventriculogram revealed an ejection fraction of 70%. There was no gradient across the aortic valve. There was no wall motion abnormality. There was no mitral regurgitation noted. 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 The left anterior descending artery revealed a nonobstructive lesion. The left ventriculogram revealed normal left ventricular systolic function. RECOMMENDATIONS: Case was discussed with Dr. Lam and Dr. Star Gray. The patient may go for fem-pop surgery under general anesthesia with [id number] risk. Intervention of the first obtuse marginal will be done at a later date. Mitch Leavitt MD
[2018-03-31 07:01] LABS: HEMOGLOBIN 15.4 g/dL (11.0-16.0); MEAN CELL VOLUME 82.2 fL (81.0-99.0); MEAN CORPUSCULAR HEMOGLOBIN 26.9 pg (27.0-31.0); MEAN CORPUSCULAR HGB CONC 32.7 g/dL (33.0-37.0); MEAN PLATELET VOLUME 9.9 fL (7.2-11.7); RBC 5.73 Mil/uL (3.80-5.20); RED CELL DISTRIBUTION WIDTH 15.2 % (11.5-14.5); WHITE BLOOD COUNT 10.8 K/uL (4.8-10.8)
[2018-03-31 07:28] LABS: ALB/GLOB RATIO 1.4 (1.0-2.1); ALBUMIN 3.8 g/dL (3.5-5.0); CALCIUM 9.7 mg/dl (8.6-10.4)
[2018-03-31] MEDS: (Novolin R) Insulin Human Regular 100 units/ml vial SC SCH ×4 (08:30→21:17)
[2018-03-31] MEDS: Nystatin 100,000 Units/gm Cream(15 gm) TOP SCH ×3 (09:47→17:29)
[2018-03-31] MEDS ORDERED: (Novolin R) Insulin Human Regular 100 units/ml vial SC ONE (09:54)
[2018-03-31] MEDS ORDERED: (Novolog) Insulin Aspart, Recombinant 100 u/ml 10 ml vial SC ONE (11:15)
--- NOTE | 2018-03-31 13:31 | CP.PCM.PN ---
Subjective - Date & Time of Evaluation Date of Evaluation: 03/31/18 Time of Evaluation: 13:28 - Subjective Subjective: Vascular Surgery Progress Note for Dr. Lam Patient was seen and examined today at bedside in no acute distress. Nurse reports no overnight events. Patient is anxious about surgery, talked to and calmed down. Denies CP, SOB, n/v/c/d. Objective - Vital Signs/Intake and Output Vital Signs (last 24 hours): Temp Pulse Resp BP Pulse Ox 98 F 87 20 128/78 95 03/31/18 08:00 03/31/18 08:00 03/31/18 08:00 03/31/18 09:50 03/31/18 08:00 Intake and Output: 03/31/18 03/31/18 06:59 18:59 Intake Total 50 Balance 50 - Medications Medications: Current Medications Diphenhydramine HCl (Benadryl) 25 mg PO Q6 [facility] Last Admin: 03/31/18 12:06 Dose: 25 mg Divalproex Sodium (Depakote Er) 250 mg PO HS [facility] Last Admin: 03/29/18 21:57 Dose: 250 mg Docusate Sodium (Colace) 100 mg PO DAILY [facility] Last Admin: 03/31/18 09:46 Dose: Not Given Escitalopram Oxalate (Lexapro) 10 mg PO DAILY [facility] Last Admin: 03/31/18 09:50 Dose: 10 mg Furosemide (Lasix) 40 mg PO BID [facility] Last Admin: 03/31/18 09:50 Dose: 40 mg Heparin Sodium (Porcine) (Heparin) 5,000 units SC Q12 [facility] Last Admin: 03/31/18 09:46 Dose: Not Given Ibuprofen (Motrin Tab) 800 mg PO Q6H PRN PRN Reason: Pain, moderate (4-7) Insulin Human Regular (Novolin R) 0 unit SC ACHS [facility] Last Admin: 03/31/18 11:33 Dose: 15 units Lisinopril (Zestril) 5 mg PO DAILY [facility] Last Admin: 03/31/18 09:51 Dose: 5 mg Lorazepam (Ativan) 1 mg PO QID PRN PRN Reason: Anxiety Last Admin: 03/26/18 22:12 Dose: 1 mg Mupirocin (Bactroban Ointment) 0 gm TOP BID [facility] Last Admin: 03/31/18 09:45 Dose: 1 applic Nystatin (Mycostatin Cream) 0 ea TOP TID [facility] Last Admin: 03/31/18 09:47 Dose: 1 applic Pregabalin (Lyrica) 50 mg PO TID [facility] Last Admin: 03/31/18 09:50 Dose: 50 mg Quetiapine Fumarate (Seroquel) 25 mg PO BID [facility] Last Admin: 03/31/18 09:51 Dose: Not Given Sitagliptin Phosphate (Januvia) 25 mg PO DAILY [facility] Last Admin: 03/31/18 09:46 Dose: Not Given - Labs Labs: 03/31/18 06:55 03/31/18 06:55 PT 10.8 SECONDS (9.7-12.2) 03/27/18 06:36 INR 1.0 03/27/18 06:36 APTT 32 SECONDS (21-34) 03/27/18 06:36 - Constitutional Appears: Non-toxic, No Acute Distress - Head Exam Head Exam: ATRAUMATIC, NORMOCEPHALIC - Eye Exam Eye Exam: EOMI, Normal appearance - Respiratory Exam Respiratory Exam: Clear to Ausculation Bilateral, NORMAL BREATHING PATTERN. absent: Rales, Rhonchi - Cardiovascular Exam Cardiovascular Exam: REGULAR RHYTHM, +S1, +S2. absent: Murmur - GI/Abdominal Exam GI & Abdominal Exam: Soft, Normal Bowel Sounds. absent: Tenderness - Extremities Exam Additional comments: R BKA - Neurological Exam Neurological Exam: Alert, Awake, Oriented x3 - Psychiatric Exam Psychiatric exam: Normal Affect, Normal Mood - Skin Skin Exam: Dry, Intact, Normal Color Assessment and Plan - Assessment and Plan (Free Text) Plan: Assessment: 72F scheduled for Fem-Pop Bypass, delayed 2/2 Rash s/p Cath, delayed 2/2 uncontrolled glucose for Francoise, 04/02/18 Plan: OR Monitor rash - cleared [place] Protocol Friday, tomorrow Glucose control per Primary team Medical management per Primary team further recs per Dr. Carole Tuttle PGY1
[2018-03-31] MEDS ORDERED: Insulin Detemir 100 units/ml Vial (Levemir) SC SCH (22:00)
--- NOTE | 2018-03-31 23:01 | CP.PCM.PN ---
Subjective - Date & Time of Evaluation Date of Evaluation: 03/31/18 Time of Evaluation: 08:35 - Subjective Subjective: no chest pain anxious about surgery Objective - Vital Signs/Intake and Output Vital Signs (last 24 hours): Temp Pulse Resp BP Pulse Ox 98.9 F 78 20 110/68 97 03/31/18 15:36 03/31/18 15:36 03/31/18 15:36 03/31/18 17:30 03/31/18 15:36 Intake and Output: 03/31/18 04/01/18 18:59 06:59 Intake Total 290 Balance 290 - Medications Medications: Current Medications Diphenhydramine HCl (Benadryl) 25 mg PO Q6 [facility] Last Admin: 03/31/18 17:31 Dose: 25 mg Divalproex Sodium (Depakote Er) 250 mg PO HS [facility] Last Admin: 03/31/18 21:23 Dose: 250 mg Docusate Sodium (Colace) 100 mg PO DAILY [facility] Last Admin: 03/31/18 09:46 Dose: Not Given Escitalopram Oxalate (Lexapro) 10 mg PO DAILY [facility] Last Admin: 03/31/18 09:50 Dose: 10 mg Furosemide (Lasix) 40 mg PO BID [facility] Last Admin: 03/31/18 17:30 Dose: 40 mg Heparin Sodium (Porcine) (Heparin) 5,000 units SC Q12 [facility] Last Admin: 03/31/18 21:20 Dose: 5,000 units Ibuprofen (Motrin Tab) 800 mg PO Q6H PRN PRN Reason: Pain, moderate (4-7) Insulin Detemir (Levemir) 15 unit SC HS [facility] Last Admin: 03/31/18 21:18 Dose: 15 unit Insulin Human Regular (Novolin R) 0 unit SC ACHS [facility] Last Admin: 03/31/18 21:17 Dose: 9 units Lisinopril (Zestril) 5 mg PO DAILY [facility] Last Admin: 03/31/18 09:51 Dose: 5 mg Lorazepam (Ativan) 1 mg PO QID PRN PRN Reason: Anxiety Last Admin: 03/26/18 22:12 Dose: 1 mg Mupirocin (Bactroban Ointment) 0 gm TOP BID [facility] Last Admin: 03/31/18 17:32 Dose: 1 applic Nystatin (Mycostatin Cream) 0 ea TOP TID [facility] Last Admin: 03/31/18 17:29 Dose: 1 applic Pregabalin (Lyrica) 50 mg PO TID [facility] Last Admin: 03/31/18 17:29 Dose: 50 mg Quetiapine Fumarate (Seroquel) 25 mg PO BID [facility] Last Admin: 03/31/18 17:31 Dose: 25 mg Sitagliptin Phosphate (Januvia) 25 mg PO DAILY [facility] Last Admin: 03/31/18 09:46 Dose: Not Given - Labs Labs: 03/31/18 06:55 03/31/18 06:55 PT 10.8 SECONDS (9.7-12.2) 03/27/18 06:36 INR 1.0 03/27/18 06:36 APTT 32 SECONDS (21-34) 03/27/18 06:36 - Constitutional Appears: Non-toxic - Head Exam Head Exam: NORMAL INSPECTION - Eye Exam Eye Exam: Scleral icterus - Neck Exam Neck Exam: Full ROM - Respiratory Exam Respiratory Exam: Clear to Ausculation Bilateral - Cardiovascular Exam Cardiovascular Exam: REGULAR RHYTHM - GI/Abdominal Exam GI & Abdominal Exam: Soft - Extremities Exam Extremities Exam: absent: Calf Tenderness Additional comments: hx of BKA Assessment and Plan - Assessment and Plan (Free Text) Assessment: CAD PVD T2dm Plan: Cont meds Ok for surgery
--- NOTE | 2018-03-31 23:04 | CP.PCM.PN ---
Subjective - Date & Time of Evaluation Date of Evaluation: 03/30/18 Time of Evaluation: 08:00 - Subjective Subjective: no chest pain minimal rash anxious re: surgery Objective - Vital Signs/Intake and Output Vital Signs (last 24 hours): Temp Pulse Resp BP Pulse Ox 98.9 F 78 20 110/68 97 03/31/18 15:36 03/31/18 15:36 03/31/18 15:36 03/31/18 17:30 03/31/18 15:36 Intake and Output: 03/31/18 04/01/18 18:59 06:59 Intake Total 290 Balance 290 - Medications Medications: Current Medications Diphenhydramine HCl (Benadryl) 25 mg PO Q6 [facility] Last Admin: 03/31/18 17:31 Dose: 25 mg Divalproex Sodium (Depakote Er) 250 mg PO HS [facility] Last Admin: 03/31/18 21:23 Dose: 250 mg Docusate Sodium (Colace) 100 mg PO DAILY [facility] Last Admin: 03/31/18 09:46 Dose: Not Given Escitalopram Oxalate (Lexapro) 10 mg PO DAILY [facility] Last Admin: 03/31/18 09:50 Dose: 10 mg Furosemide (Lasix) 40 mg PO BID [facility] Last Admin: 03/31/18 17:30 Dose: 40 mg Heparin Sodium (Porcine) (Heparin) 5,000 units SC Q12 [facility] Last Admin: 03/31/18 21:20 Dose: 5,000 units Ibuprofen (Motrin Tab) 800 mg PO Q6H PRN PRN Reason: Pain, moderate (4-7) Insulin Detemir (Levemir) 15 unit SC HS [facility] Last Admin: 03/31/18 21:18 Dose: 15 unit Insulin Human Regular (Novolin R) 0 unit SC ACHS [facility] Last Admin: 03/31/18 21:17 Dose: 9 units Lisinopril (Zestril) 5 mg PO DAILY [facility] Last Admin: 03/31/18 09:51 Dose: 5 mg Lorazepam (Ativan) 1 mg PO QID PRN PRN Reason: Anxiety Last Admin: 03/26/18 22:12 Dose: 1 mg Mupirocin (Bactroban Ointment) 0 gm TOP BID [facility] Last Admin: 03/31/18 17:32 Dose: 1 applic Nystatin (Mycostatin Cream) 0 ea TOP TID [facility] Last Admin: 03/31/18 17:29 Dose: 1 applic Pregabalin (Lyrica) 50 mg PO TID [facility] Last Admin: 03/31/18 17:29 Dose: 50 mg Quetiapine Fumarate (Seroquel) 25 mg PO BID [facility] Last Admin: 03/31/18 17:31 Dose: 25 mg Sitagliptin Phosphate (Januvia) 25 mg PO DAILY [facility] Last Admin: 03/31/18 09:46 Dose: Not Given - Labs Labs: 03/31/18 06:55 03/31/18 06:55 PT 10.8 SECONDS (9.7-12.2) 03/27/18 06:36 INR 1.0 03/27/18 06:36 APTT 32 SECONDS (21-34) 03/27/18 06:36 - Constitutional Appears: Non-toxic - Head Exam Head Exam: NORMAL INSPECTION - Eye Exam Eye Exam: absent: Scleral icterus - Neck Exam Neck Exam: Full ROM - Respiratory Exam Respiratory Exam: Clear to Ausculation Bilateral - Cardiovascular Exam Cardiovascular Exam: REGULAR RHYTHM - GI/Abdominal Exam GI & Abdominal Exam: Soft - Extremities Exam Extremities Exam: absent: Pedal Edema Additional comments: s/p BKA - Neurological Exam Neurological Exam: Alert Assessment and Plan - Assessment and Plan (Free Text) Assessment: CAD PVD T2dm Plan: Cont present meds Ok for surgery
[2018-04-01] MEDS ORDERED: Insulin Detemir 100 units/ml Vial (Levemir) SC SCH ×2 (06:19→06:21)
--- NOTE | 2018-04-01 06:48 | PN ---
Copied To: Haja Pink DO Attending MD: Haja Pink DO DATE: 03/31/2018 SUBJECTIVE: She is resting comfortably in bed. She has no complaints. She is getting ready for her surgery today with Dr. Lam. She is on Ativan, Bactroban, Benadryl, Colace, Depakote, heparin, Januvia, Lasix, Lexapro, Lyrica, Motrin, Mycostatin, Novolin, prednisone at 50 every 6 hours, Seroquel, and Zestril. PHYSICAL EXAMINATION: VITAL SIGNS: She has 98.6 temperature, 74 pulse, 163/80 blood pressure, 20 respiratory rate, and 95% O2 sat on room air. LABORATORY DATA: She has a 12.9 white count, 14.3 hemoglobin, 42.1 hematocrit with 202,000 platelets. Sodium 140, potassium 3.9, BUN 47, creatinine 1.8. Last blood sugar was 300. It was as high as 467 after the elevation in her prednisone from 20 mg to 50 mg every 6 hours. Calcium is 9.7, total bilirubin 0.2, AST is 12, ALT is 21, and alk phos is 111, total protein is 6.7. ASSESSMENT AND PLAN: She is being seen by Cardiology, Surgery. The rash got worse, they increased the prednisone, OR today with Dr. Lam. We will continue with aggressive treatment and care check her labs tomorrow. She is here for peripheral artery disease of the left ischemic leg, for bypass vascular surgery with Dr. Lam. adjust insulin as per prednisone Haja Pink, DO : 03/31/2018 5:40:41 MTDD
[2018-04-01 07:47] LABS: MEAN CELL VOLUME 81.3 fL (81.0-99.0); MEAN CORPUSCULAR HEMOGLOBIN 26.8 pg (27.0-31.0); MEAN CORPUSCULAR HGB CONC 32.9 g/dL (33.0-37.0); MEAN PLATELET VOLUME 10.2 fL (7.2-11.7); RBC 5.6 Mil/uL (3.80-5.20); RED CELL DISTRIBUTION WIDTH 15.1 % (11.5-14.5); WHITE BLOOD COUNT 15.1 K/uL (4.8-10.8)
[2018-04-01 08:12] LABS: ALB/GLOB RATIO 1.3 (1.0-2.1); ALBUMIN 3.7 g/dL (3.5-5.0); CALCIUM 9.9 mg/dl (8.6-10.4)
[2018-04-01] MEDS: (Novolin R) Insulin Human Regular 100 units/ml vial SC SCH ×4 (08:20→21:20)
[2018-04-01] MEDS ORDERED: Potassium Chloride 20 mEq ER Tab PO ONE (10:00)
[2018-04-01] MEDS: Nystatin 100,000 Units/gm Cream(15 gm) TOP SCH ×3 (10:06→17:49)
--- NOTE | 2018-04-01 11:13 | CP.PCM.PN ---
Subjective - Date & Time of Evaluation Date of Evaluation: 04/01/18 Time of Evaluation: 10:15 - Subjective Subjective: Vascular surgery progress note for Dr. Lam Patient seen and examined at bedside this am. no acute events overnight per nursing. patient understands that she will be going to the OR for surgery tomorrow. She indicates that the pain in her foot is intermittent but not present at this time. She denies cp/n/v/f/c, new rash, SOB. Objective - Vital Signs/Intake and Output Vital Signs (last 24 hours): Temp Pulse Resp BP Pulse Ox 98.4 F 64 20 122/76 96 04/01/18 08:00 04/01/18 08:00 04/01/18 08:00 04/01/18 10:05 04/01/18 08:00 Intake and Output: 04/01/18 04/01/18 06:59 18:59 Intake Total 300 Balance 300 - Medications Medications: Current Medications Diphenhydramine HCl (Benadryl) 25 mg PO Q6 [facility] Last Admin: 04/01/18 11:05 Dose: 25 mg Divalproex Sodium (Depakote Er) 250 mg PO HS [facility] Last Admin: 03/31/18 21:23 Dose: 250 mg Docusate Sodium (Colace) 100 mg PO DAILY [facility] Last Admin: 04/01/18 10:06 Dose: 100 mg Escitalopram Oxalate (Lexapro) 10 mg PO DAILY [facility] Last Admin: 04/01/18 10:04 Dose: 10 mg Furosemide (Lasix) 40 mg PO BID [facility] Last Admin: 04/01/18 10:05 Dose: 40 mg Heparin Sodium (Porcine) (Heparin) 5,000 units SC Q12 [facility] Last Admin: 04/01/18 10:07 Dose: 5,000 units Ibuprofen (Motrin Tab) 800 mg PO Q6H PRN PRN Reason: Pain, moderate (4-7) Insulin Detemir (Levemir) 20 unit SC HS [facility] Insulin Human Regular (Novolin R) 0 unit SC ACHS [facility] Last Admin: 04/01/18 08:20 Dose: 6 units Lisinopril (Zestril) 5 mg PO DAILY [facility] Last Admin: 04/01/18 10:06 Dose: 5 mg Lorazepam (Ativan) 1 mg PO QID PRN PRN Reason: Anxiety Last Admin: 03/26/18 22:12 Dose: 1 mg Mupirocin (Bactroban Ointment) 0 gm TOP BID [facility] Last Admin: 04/01/18 10:07 Dose: 1 applic Nystatin (Mycostatin Cream) 0 ea TOP TID [facility] Last Admin: 04/01/18 10:06 Dose: 1 applic Pregabalin (Lyrica) 50 mg PO TID [facility] Last Admin: 04/01/18 10:56 Dose: 50 mg Quetiapine Fumarate (Seroquel) 25 mg PO BID [facility] Last Admin: 04/01/18 10:04 Dose: 25 mg Sitagliptin Phosphate (Januvia) 25 mg PO DAILY [facility] Last Admin: 04/01/18 10:04 Dose: 25 mg - Labs Labs: 04/01/18 07:00 04/01/18 07:00 PT 10.8 SECONDS (9.7-12.2) 03/27/18 06:36 INR 1.0 03/27/18 06:36 APTT 32 SECONDS (21-34) 03/27/18 06:36 - Constitutional Appears: Well, Non-toxic, No Acute Distress - Head Exam Head Exam: ATRAUMATIC, NORMOCEPHALIC - Eye Exam Eye Exam: EOMI, Normal appearance - ENT Exam ENT Exam: Mucous Membranes Moist - Respiratory Exam Respiratory Exam: NORMAL BREATHING PATTERN - Cardiovascular Exam Cardiovascular Exam: +S1, +S2 - GI/Abdominal Exam GI & Abdominal Exam: Soft. absent: Tenderness - Extremities Exam Extremities Exam: absent: Pedal Edema Additional comments: s/p right BKA with good wound healing, left foot has erythema consistent with known vasculopathy, dopplerable but not palpable DP and PT pulses in the left foot - Neurological Exam Neurological Exam: Alert, Awake, Oriented x3 - Psychiatric Exam Psychiatric exam: Normal Affect, Normal Mood - Skin Skin Exam: Dry, Intact Additional comments: distal/ ventral portion of left foot shows erythema consistent with known vasculopathy Assessment and Plan - Assessment and Plan (Free Text) Assessment: 72 yr old F with PVD scheduled for Left fem-pop bypass on 04/02/18, previously delayed d/t rash and blood sugar levels Plan: - [place] protocol to be enacted preoperatively starting today - glucose management per primary team - Levemir increased to 20 by primary will need to monitor overnight - potassium level noted to have been repleted by primary team - no new rash noted - to OR 04/02/18 - will d/w Dr. Lam further recs per him Radha Dover, PGY 1
--- NOTE | 2018-04-01 11:49 | PN ---
Copied To: Haja Pink DO Attending MD: Haja Pink DO DATE: 04/01/2018 SUBJECTIVE: There was a problem yesterday, so I did not get to go with the bypass. Her blood sugars went up to 400 and 500s due to the increase in the prednisone. She will have an increase in her Levemir to adjust to that, and hopefully, by tomorrow she will be able to have her procedure done with Dr. Lam. PHYSICAL EXAMINATION: GENERAL: She is resting comfortably in bed. VITAL SIGNS: She has a 98.1 temp, 111/68 blood pressure, 20 respiratory rate, 95% sat on room air, 77 pulse. HEENT: Head is atraumatic and normocephalic. HEART: Regular rate. LUNGS: Decreased breath sounds but clear. ABDOMEN: Soft and nontender. Positive bowel sounds. EXTREMITIES: She has a right BKA. Her left leg has an ischemic leg with PAD. Hopefully, the blood sugars will be better tomorrow. She is currently on Ativan, Bactroban, Benadryl, Colace, Depakote, heparin, Januvia, Lasix, Levemir down to 20 units at nighttime, Lexapro, Lyrica, Motrin, Mycostatin, Novolin, Seroquel, and Zestril. She was on prednisone 50 p.o. every 6 hours and then stopped it. I will decrease the Levemir now down to 15, it might be too much. LABORATORY DATA: She has 10.8 white count, 15.4 hemoglobin, 47.1 hematocrit with 238,000 platelets. Last blood sugars at 280, 255, and 232 with the Levemir, but now she is off the prednisone. RECOMMENDATIONS: She will be off the prednisone. I will decrease the Levemir. We will put her back on the prednisone after increasing the Levemir, and we will prepare for tomorrow's surgery. Haja Pink DO
--- NOTE | 2018-04-01 13:49 | CP.PCM.CON ---
History of Present Illness - History of Present Illness History of Present Illness: 72 y/o F patient presents to the ED with PAD, left foot discomfort. The patient states that they are not in any acute pain or distress and that they are here to receive medical clearance for a femoral-popliteal bypass for PAD in her left lower extremity. Consulted for mildly elevated creatinine. PMH: PVD s/p multple endovascular stent placement to L iliac, SFA and popliteal , DM type 2, HTN, bipolar depression do with multiple psychiatric admissions PSH: right BKA, right hip surgery, left femur sx, multiple angios FH- no CKD Social hx- negative for ETOH, illicits, positive for smoking Review of Systems - Constitutional Constitutional: Malaise, Weakness - EENT Eyes: absent: As Per HPI, Blind Spots, Blurred Vision, Change in Vision, Decreased Night Vision, Diplopia, Discharge, Dry Eye, Exophthalmos, Floaters, Irritation, Itchy Eyes, Loss of Peripheral Vision, Pain, Photophobia, Requires Corrective Lenses, Sees Flashes, Spots in Vision, Tunnel Vision, Other Visual Disturbances, Loss of Vision, Other Ears: absent: As Per HPI, Decreased Hearing, Ear Discharge, Ear Pain, Tinnitus, Abnormal Hearing, Disequilibrium, Dizziness, Other Nose/Mouth/Throat: absent: As Per HPI, Epistaxis, Nasal Congestion, Nasal Discharge, Nasal Obstruction, Nasal Trauma, Nose Pain, Post Nasal Drip, Sinus Pain, Sinus Pressure, Bleeding Gums, Change in Voice, Dental Pain, Dry Mouth, Dysphagia, Halitosis, Hoarsness, Lip Swelling, Mouth Lesions, Mouth Pain, Odynophagia, Sore Throat, Throat Swelling, Tongue Swelling, Facial Pain, Neck Pain, Neck Mass, Other - Cardiovascular Cardiovascular: absent: As Per HPI, Acrocyanosis, Chest Pain, Chest Pain at Rest , Chest Pain with Activity, Claudication, Diaphoresis, Dyspnea, Dyspnea on Exertion, Edema, Irregular Heart Rhythm, Pain Radiating to Arm/Neck/Jaw, Leg Edema, Leg Ulcers, Lightheadedness, Orthopnea, Palpitations, Paroxysmal Nocturnal Dyspnea, Pedal Edema, Radiating Pain, Rapid Heart Rate, Slow Heart Rate, Syncope, Other - Respiratory Respiratory: absent: As Per HPI, Cough, Dyspnea, Hemoptysis, Dyspnea on Exertion , Wheezing, Snoring, Stridor, Pain on Inspiration, Chest Congestion, Excessive Mucous Production, Change in Mucous Color, Pain with Coughing, Other - Gastrointestinal Gastrointestinal: absent: As Per HPI, Abdominal Pain, Belching, Bloating, Change in Bowel Habits, Change in Stool Character, Coffee Ground Emesis, Constipation, Cramping, Diarrhea, Dyspepsia, Dysphagia, Early Satiety, Excessive Flatus, Fecal Incontinence, Heartburn, Hematemesis, Hematochezia, Loose Stools, Melena, Nausea, Odynophagia, Temesmus, Vomiting, Other - Genitourinary Genitourinary: Voiding Freq/Small Amts - Musculoskeletal Musculoskeletal: Muscle Cramps, Muscle Weakness, Myalgias - Neurological Neurological: absent: As Per HPI, Abnormal Gait, Abnormal Hearing, Abnormal Movements, Abnormal Speech, Behavioral Changes, Burning Sensations, Confusion, Convulsions, Disequilibrium, Dizziness, Numbness, Focal Weakness, Frequent Falls , Headaches, Lack of Coordination, Loss of Vision, Memory Loss, Paresthesias, Radicular Pain, Restless Legs, Sensory Deficit, Syncope, Tingling, Tremor, Vertigo, Weakness, Other Visual Disturbances, Other Past Patient History - Tetanus Immunizations Tetanus Immunization: Unknown - Past Medical History & Family History Past Medical History?: Yes Past Family History: Reviewed and not pertinent - Past Social History Smoking Status: Light Smoker < 10 Cigarettes Daily Chewing Tobacco Use: No Cigar Use: No Alcohol: None Drugs: Denies Home Situation {Lives}: Alone - CARDIAC Hx Congestive Heart Failure: Yes Hx Hypertension: Yes - PULMONARY Hx Chronic Obstructive Pulmonary Disease (COPD): Yes - NEUROLOGICAL Hx Seizures: No - HEENT Hx HEENT Problems: No Hx Cataracts: Yes - RENAL Hx Chronic Kidney Disease: No - ENDOCRINE/METABOLIC Hx Diabetes Mellitus Type 2: Yes - HEMATOLOGICAL/ONCOLOGICAL Hx Human Immunodeficiency Virus (HIV): No - INTEGUMENTARY Other/Comment: pvd - MUSCULOSKELETAL/RHEUMATOLOGICAL Hx Falls: No - GASTROINTESTINAL Hx Gastrointestinal Disorders: No - GENITOURINARY/GYNECOLOGICAL Hx Sexually Transmitted Disorders: No - PSYCHIATRIC Hx Anxiety: Yes Hx Bipolar Disorder: Yes Hx Depression: Yes Hx Substance Use: No - SURGICAL HISTORY Hx Surgeries: Yes Other/Comment: right BKA - ANESTHESIA Hx Anesthesia: Yes Hx Anesthesia Reactions: No Hx Malignant Hyperthermia: No Meds Allergies/Adverse Reactions: Allergies Allergy/AdvReac Type Severity Reaction Status Date / Time aminothiols Allergy Mild RASH Uncoded 03/23/18 08:12 CONTRAST AdvReac Intermediate "SPACED Uncoded 03/23/18 08:12 OUT" - Medications Medications: Current Medications Diphenhydramine HCl (Benadryl) 25 mg PO Q6 [facility] Last Admin: 04/01/18 11:05 Dose: 25 mg Divalproex Sodium (Depakote Er) 250 mg PO HS [facility] Last Admin: 03/31/18 21:23 Dose: 250 mg Docusate Sodium (Colace) 100 mg PO DAILY [facility] Last Admin: 04/01/18 10:06 Dose: 100 mg Escitalopram Oxalate (Lexapro) 10 mg PO DAILY [facility] Last Admin: 04/01/18 10:04 Dose: 10 mg Furosemide (Lasix) 40 mg PO BID [facility] Last Admin: 04/01/18 10:05 Dose: 40 mg Heparin Sodium (Porcine) (Heparin) 5,000 units SC Q12 [facility] Last Admin: 04/01/18 10:07 Dose: 5,000 units Ibuprofen (Motrin Tab) 800 mg PO Q6H PRN PRN Reason: Pain, moderate (4-7) Insulin Detemir (Levemir) 20 unit SC [facility] Insulin Human Regular (Novolin R) 0 unit SC ACHS [facility] Last Admin: 04/01/18 12:00 Dose: 9 units Lisinopril (Zestril) 5 mg PO DAILY [facility] Last Admin: 04/01/18 10:06 Dose: 5 mg Lorazepam (Ativan) 1 mg PO QID PRN PRN Reason: Anxiety Last Admin: 03/26/18 22:12 Dose: 1 mg Mupirocin (Bactroban Ointment) 0 gm TOP BID [facility] Last Admin: 04/01/18 10:07 Dose: 1 applic Nystatin (Mycostatin Cream) 0 ea TOP TID [facility] Last Admin: 04/01/18 13:22 Dose: 1 applic Pregabalin (Lyrica) 50 mg PO TID [facility] Last Admin: 04/01/18 13:21 Dose: 50 mg Quetiapine Fumarate (Seroquel) 25 mg PO BID [facility] Last Admin: 04/01/18 10:04 Dose: 25 mg Sitagliptin Phosphate (Januvia) 25 mg PO DAILY [facility] Last Admin: 04/01/18 10:04 Dose: 25 mg Physical Exam - Constitutional Appears: No Acute Distress, Chronically Ill - Head Exam Head Exam: ATRAUMATIC, NORMAL INSPECTION - Eye Exam Eye Exam: EOMI, Normal appearance - Neck Exam Neck exam: Positive for: Normal Inspection. Negative for: Tenderness - Respiratory Exam Respiratory Exam: Clear to Auscultation Bilateral, NORMAL BREATHING PATTERN - Cardiovascular Exam Cardiovascular Exam: REGULAR RHYTHM, +S1 - GI/Abdominal Exam GI & Abdominal Exam: Soft. absent: Tenderness - Extremities Exam Extremities exam: Positive for: normal inspection. Negative for: tenderness - Neurological Exam Neurological exam: Alert, CN II-XII Intact - Skin Skin Exam: Dry, Warm Results - Vital Signs Recent Vital Signs: Last Vital Signs Temp 98.4 F 04/01/18 08:00 Pulse 64 04/01/18 08:00 Resp 20 04/01/18 08:00 BP 122/76 04/01/18 10:05 Pulse Ox 96 04/01/18 08:00 - Labs Result Diagrams: 04/01/18 07:00 04/01/18 07:00 Labs: Laboratory Results - last 24 hr 03/31/18 03/31/18 04/01/18 16:06 21:10 02:10 WBC RBC Hgb Hct MCV MCH MCHC RDW Plt Count MPV Sodium Potassium Chloride Carbon Dioxide Anion Gap BUN Creatinine Est GFR ( Amer) Est GFR (Non-Af Amer) POC Glucose (mg/dL) 232 H 280 H 255 H Random Glucose Calcium Phosphorus Magnesium Total Bilirubin AST ALT Alkaline Phosphatase Total Protein Albumin Globulin Albumin/Globulin Ratio 04/01/18 04/01/18 04/01/18 07:00 07:00 07:09 WBC 15.1 H RBC 5.60 H Hgb 15.0 Hct 45.5 MCV 81.3 MCH 26.8 L MCHC 32.9 L RDW 15.1 H Plt Count 237 MPV 10.2 Sodium 141 Potassium 3.4 L Chloride 106 Carbon Dioxide 22 Anion Gap 16 BUN 64 H Creatinine 1.8 H Est GFR ( Amer) 34 Est GFR (Non-Af Amer) 28 POC Glucose (mg/dL) 200 H Random Glucose 180 H Calcium 9.9 Phosphorus 3.8 Magnesium 2.5 H Total Bilirubin 0.3 AST 12 L ALT 19 Alkaline Phosphatase 113 Total Protein 6.4 Albumin 3.7 Globulin 2.8 Albumin/Globulin Ratio 1.3 04/01/18 11:06 WBC RBC Hgb Hct MCV MCH MCHC RDW Plt Count MPV Sodium Potassium Chloride Carbon Dioxide Anion Gap BUN Creatinine Est GFR ( Amer) Est GFR (Non-Af Amer) POC Glucose (mg/dL) 276 H Random Glucose Calcium Phosphorus Magnesium Total Bilirubin AST ALT Alkaline Phosphatase Total Protein Albumin Globulin Albumin/Globulin Ratio Assessment & Plan (1) DM type 2 (diabetes mellitus, type 2) Status: Acute (2) CKD (chronic kidney disease) stage 3, GFR 30-59 ml/min Status: Acute (3) Peripheral vascular disease Status: Acute (4) Bipolar disorder Status: Acute - Assessment and Plan (Free Text) Plan: Await bypass left LE check for proteinuria renal US
[2018-04-01 15:04] LABS: SQUAMOUS EPITHIAL 1 /hpf (0-5); URINE BACTERIA RARE (<OCC); URINE BILIRUBIN NEGATIVE (NEGATIVE); URINE BLOOD NEGATIVE (NEGATIVE); URINE CLARITY Clear (Clear); URINE COLOR Straw (YELLOW); URINE GLUCOSE (UA) NORMAL (Normal); URINE LEUKOCYTE ESTERASE 1+ Leu/uL (Negative); URINE PROTEIN NEGATIVE (NEGATIVE); URINE UROBILINOGEN NORMAL mg/dL (0.2-1.0)
--- NOTE | 2018-04-01 15:14 | US ---
Date of service: 04/01/2018 PROCEDURE: Ultrasound of the Kidneys HISTORY: ckd eval COMPARISON: None available. TECHNIQUE: Sonogram of the kidneys. FINDINGS: RIGHT KIDNEY: Measures: 8.3 cm. Diffusely increased cortical echogenicity. Mid renal cortical cyst, 10 mm. No calculus or hydronephrosis. LEFT KIDNEY: Measures: 11.6 cm. Normal in size, contour and echogenicity. Lower pole cortical cyst, 1.8 x 2.1 x 2.0 cm. No calculus or hydronephrosis. OTHER FINDINGS: None. IMPRESSION: Echogenic right kidney with normal cortical echogenicity of the left kidney. Small bilateral renal cortical cysts. No hydronephrosis.
[2018-04-01] MEDS: Insulin Detemir 100 units/ml Vial (Levemir) SC SCH (21:19)
[2018-04-01] MEDS ORDERED: (Novolin R) Insulin Human Regular 100 units/ml vial SC SCH (23:02)
[2018-04-02 07:14] LABS: HEMOGLOBIN 16.2 g/dL (11.0-16.0); MEAN CELL VOLUME 82.5 fL (81.0-99.0); MEAN CORPUSCULAR HEMOGLOBIN 27.2 pg (27.0-31.0); MEAN PLATELET VOLUME 10.1 fL (7.2-11.7); RBC 5.96 Mil/uL (3.80-5.20); RED CELL DISTRIBUTION WIDTH 15.2 % (11.5-14.5)
[2018-04-02 07:22] LABS: INR 0.9; PROTHROMBIN TIME 10.3 SECONDS (9.7-12.2)
[2018-04-02 07:38] LABS: ALB/GLOB RATIO 1.3 (1.0-2.1); ALBUMIN 3.8 g/dL (3.5-5.0); CALCIUM 9.4 mg/dl (8.6-10.4)
[2018-04-02] MEDS: (Novolin R) Insulin Human Regular 100 units/ml vial SC SCH ×5 (07:54→23:57)
[2018-04-02] MEDS ORDERED: Insulin Detemir 100 units/ml Vial (Levemir) SC ONE (08:00)
--- NOTE | 2018-04-02 10:06 | CP.PCM.PN ---
Subjective - Date & Time of Evaluation Date of Evaluation: 04/02/18 Time of Evaluation: 10:03 - Subjective Subjective: Alert; no new complaint HTN controlled creatinine stable at 1.5; lytes acceptable awaiting LE bypass procedure renal US- shows small, echogenic right kidney, left kidney normal appearance Objective - Vital Signs/Intake and Output Vital Signs (last 24 hours): Temp Pulse Resp BP Pulse Ox 98.3 F 75 20 117/84 96 04/02/18 08:00 04/02/18 08:00 04/02/18 08:00 04/02/18 08:00 04/02/18 08:00 Intake and Output: 04/02/18 04/02/18 06:59 18:59 Intake Total 60 Balance 60 - Medications Medications: Current Medications Diphenhydramine HCl (Benadryl) 25 mg PO Q6 [facility] Last Admin: 04/02/18 05:08 Dose: 25 mg Diphenhydramine HCl (Benadryl) 50 mg PO ONCE ONE Stop: 04/02/18 11:01 Divalproex Sodium (Depakote Er) 250 mg PO HS [facility] Last Admin: 04/01/18 21:18 Dose: 250 mg Docusate Sodium (Colace) 100 mg PO DAILY [facility] Last Admin: 04/01/18 10:06 Dose: 100 mg Escitalopram Oxalate (Lexapro) 10 mg PO DAILY [facility] Last Admin: 04/01/18 10:04 Dose: 10 mg Furosemide (Lasix) 40 mg PO BID [facility] Last Admin: 04/01/18 17:49 Dose: 40 mg Heparin Sodium (Porcine) (Heparin) 5,000 units SC Q12 [facility] Last Admin: 04/01/18 21:18 Dose: 5,000 units Ibuprofen (Motrin Tab) 800 mg PO Q6H PRN PRN Reason: Pain, moderate (4-7) Insulin Detemir (Levemir) 20 unit SC HS [facility] Last Admin: 04/01/18 21:19 Dose: 20 unit Insulin Human Regular (Novolin R) 0 unit SC Q4H [facility] Last Admin: 04/02/18 07:54 Dose: 16 units Lisinopril (Zestril) 5 mg PO DAILY [facility] Last Admin: 04/01/18 10:06 Dose: 5 mg Lorazepam (Ativan) 1 mg PO QID PRN PRN Reason: Anxiety Last Admin: 03/26/18 22:12 Dose: 1 mg Mupirocin (Bactroban Ointment) 0 gm TOP BID [facility] Last Admin: 04/01/18 17:48 Dose: 1 applic Nystatin (Mycostatin Cream) 0 ea TOP TID [facility] Last Admin: 04/01/18 17:49 Dose: 1 applic Prednisone (Prednisone Tab) 50 mg PO ONCE ONE Stop: 04/02/18 11:01 Pregabalin (Lyrica) 50 mg PO TID [facility] Last Admin: 04/01/18 17:49 Dose: 50 mg Quetiapine Fumarate (Seroquel) 25 mg PO BID [facility] Last Admin: 04/01/18 17:51 Dose: 25 mg Sitagliptin Phosphate (Januvia) 25 mg PO DAILY [facility] Last Admin: 04/01/18 10:04 Dose: 25 mg - Labs Labs: 04/02/18 06:52 04/02/18 06:52 PT 10.3 SECONDS (9.7-12.2) 04/02/18 06:52 INR 0.9 04/02/18 06:52 APTT 28 SECONDS (21-34) 04/02/18 06:52 - Constitutional Appears: In Acute Distress, Chronically Ill - Head Exam Head Exam: ATRAUMATIC, NORMAL INSPECTION - Eye Exam Eye Exam: EOMI, Normal appearance - Neck Exam Neck Exam: Normal Inspection. absent: Tenderness - Respiratory Exam Respiratory Exam: Clear to Ausculation Bilateral, NORMAL BREATHING PATTERN - Cardiovascular Exam Cardiovascular Exam: REGULAR RHYTHM, +S1 - GI/Abdominal Exam GI & Abdominal Exam: Soft. absent: Tenderness - Extremities Exam Extremities Exam: Normal Inspection. absent: Tenderness - Neurological Exam Neurological Exam: Alert, CN II-XII Intact - Skin Skin Exam: Dry, Warm Assessment and Plan (1) DM type 2 (diabetes mellitus, type 2) Status: Acute (2) CKD (chronic kidney disease) stage 3, GFR 30-59 ml/min Status: Acute (3) Peripheral vascular disease Status: Acute (4) Bipolar disorder Status: Acute - Assessment and Plan (Free Text) Plan: await surgery if creat increases would stop OBEY I as right kidney poorly functional monitor BP avoid NSAIDs as well
[2018-04-02] MEDS: Nystatin 100,000 Units/gm Cream(15 gm) TOP SCH ×3 (10:33→18:19)
[2018-04-02] MEDS: Insulin Human Regular 100 UNIT in Sodium Chloride 0.9% 99 ML IV SCH (11:24)
[2018-04-02] MEDS ORDERED: Vancomycin 1 gm/D5W 200 ml 1 GM/200 ML BAG IVPB ONE (11:59)
[2018-04-02] MEDS ORDERED: Midazolam 2 MG/2 ML VIAL ONE (11:59)
[2018-04-02] MEDS ORDERED: HEPARIN-NS 5,000 UNITS/500 ML 10,000 UNIT/1,000 ML BAG IV ONE (11:59)
[2018-04-02] MEDS ORDERED: Propofol 10 mg/ml Inj (20 ML) ONE (11:59)
--- NOTE | 2018-04-02 12:02 | PN ---
Copied To: Haja Pink DO Attending MD: Haja Pink DO DATE: 04/02/2018 SUBJECTIVE: She is progressing comfortably in bed. She is smiling. She understands the procedure is today with Dr. Lam. She is on Ativan, Bactroban, Benadryl, Colace, Depakote, heparin, Januvia, Lasix, Levemir, Lexapro, Lyrica, Motrin, nystatin, Novolin, prednisone, Seroquel, and Zestril. PHYSICAL EXAMINATION: VITAL SIGNS: 98.8 temp, 81 pulse, 124/76 blood pressure, 20 respiratory rate, and 97% oxygen sat on room air. HEENT: Head is atraumatic and normocephalic. HEART: Regular rate. LUNGS: Decreased breath sounds but clear. ABDOMEN: Soft. EXTREMITIES: Right is a BKA; the left is PAD and is going for a left leg procedure with Dr. Lam. She is also a diabetic. LABORATORY DATA: She had lots of tests done. She has a 15.1 white count from the steroids, 15 hemoglobin, 45.5 hematocrit with 237,000 platelets. INR is 1, last blood sugar was 250. She has 141 sodium, potassium 3.4. She was given potassium. BUN 64, creatinine 1.8. Sugars 180, calcium 9.9, phosphorus 3.8. AST is 12, ALT is 19, alk phos 113. I believe she is ready for her procedure today. She should do very well. She will be on insulin coverage. The plan today is for the procedure with Dr. Lam. She is also being seen by Renal, requested medications as the kidney functions went to renal insufficiency and I called in Dr. Grimaldo. There was no hydronephrosis. We will continue with aggressive treatment and care and hopefully she will do very well with the procedure with Dr. Lam today. We will check her labs . Haja Pink DO [facility]
[2018-04-02] MEDS ORDERED: Iodixanol 320 MG/ML 200 ML BOTTLE IV ONE (12:08)
[2018-04-02] MEDS ORDERED: Lactated Ringer's 1,000 ML IV ONE ×2 (12:30→12:40)
[2018-04-02] MEDS ORDERED: Rocuronium 10 mg/ml (10 ml) ONE (12:44)
[2018-04-02] MEDS ORDERED: Etomidate 20 mg/10ml Inj IV ONE (14:14)
[2018-04-02] MEDS ORDERED: Thrombin Topical 20,000 Intl Units Spray Kit TOP ONE (16:27)
[2018-04-02] MEDS ORDERED: Neostigmine Methylsulfate 3mg/3ml Syringe IV ONE (16:45)
--- NOTE | 2018-04-02 17:13 | RAD ---
Date of service: 04/02/2018 PROCEDURE: Intraoperative Fluoroscopy. HISTORY: P.V.D FINDINGS: Fluoroscopic assistance was provided for left femoral popliteal bypass. Please refer to the operative report from LUCÍA Daniel. Total fluoroscopic time (continuous mode) utilized during the procedure 23.2 (seconds). Total exam DLP: 1.43 (mGy)
--- NOTE | 2018-04-02 17:51 | PCM.SURG1 ---
Surgeon's Initial Post Op Note - Surgeon's Notes Surgeon: Carole Shell Reprint Operator: Orly PGY4, Donato PGY3 Type of Anesthesia: General Endo Pre-Operative Diagnosis: LLE Peripheral vascular disease Operative Findings: calcified vasculature Post-Operative Diagnosis: same Operation Performed: LLE fem-pop bypass w. reversed GSV graft and on table angiogram Specimen/Specimens Removed: none Estimated Blood Loss: EBL {In ML}: 400 Blood Products Given: N/A Drains Used: No Drains Post-Op Condition: Fair Date of Surgery/Procedure: 04/02/18 Time of Surgery/Procedure: 17:50
[2018-04-02] MEDS ORDERED: Lactated Ringer's 250 ML IV ONE (18:20)
[2018-04-02 18:21] LABS: HEMOGLOBIN 13.5 g/dL (11.0-16.0); MEAN CELL VOLUME 81.5 fL (81.0-99.0); MEAN CORPUSCULAR HEMOGLOBIN 26.3 pg (27.0-31.0); MEAN CORPUSCULAR HGB CONC 32.3 g/dL (33.0-37.0); MEAN PLATELET VOLUME 9.1 fL (7.2-11.7); RBC 5.13 Mil/uL (3.80-5.20); RED CELL DISTRIBUTION WIDTH 15.2 % (11.5-14.5)
[2018-04-02] MEDS ORDERED: Phenylephrine 30 MG in Sodium Chloride 0.9% 250 ML IV PRN (18:21)
[2018-04-02 18:27] LABS: WHITE BLOOD COUNT 26.8 K/uL (4.8-10.8)
[2018-04-02] MEDS: Sodium Chloride 0.9% 1,000 ML IV SCH (18:31)
[2018-04-02 18:33] LABS: CALCIUM 8.6 mg/dl (8.6-10.4)
[2018-04-02] MEDS ORDERED: Sodium Chloride 0.9% 250 ML IV ONE (18:35)
--- NOTE | 2018-04-02 18:47 | CP.PCM.CON ---
History of Present Illness - History of Present Illness History of Present Illness: Abdias Pollock DO PGY-1, ICU consult note for Dr. Ha Pt chart and records were reviewed prior to evaluation. This is a 72 year old female with PMHx of PVD s/p multiple endovascular stent placements to left iliac, SFA and popliteal, DM, HTN, hypercholesterolemia, right BKA, bipolar depression disorder with multiple psychiatric admissions, who presented to ICU s/p LLE fem-pop bypass with reversed GSV graft and on table angiogram at [facility] [place]. Initially, pt was sent to the ED on 03/23 for medical clearance for this procedure. Pt was asymptomatic at that time and not in any acute distress. Pt's surgery was delayed until today, but pt has been asymptomatic during her hospital course. However, pt's blood sugars have been elevated since [place] protocol (pre-operative streoids/antihistamine protocol for contrast allergy) was initiated by surgery team prior to surgery. FSBS has ranged from high 200s to low 400s. Last FSBS was 179, on arrival to ICU. During the procedure, pt developed hypotension after induction requiring starting of a phenylephrine gtt. Pt was maintained on this drip until completion of the procedure. Due to BP being labile, the rate ranged from 25 mcg /min to 75 mcg/min (avg of 50 mcg/min). ESBL was 400 mL, and she received 2300 mL of fluids. Pt was consulted for ICU placement s/p procedure due to hypotension. Pt was seen and examined at bedside. Pt reports a mild, generalized headache at this time. She denies dizziness, weakness, lightheadedness, visual changes, chest pain, shortness of breath, abdominal pain, n/v/d, numbness or tingling. A 12-point ROS was reviewed and is otherwise unremarkable Review of Systems - Review of Systems All systems: reviewed and no additional remarkable complaints except (as per HPI ) Past Patient History - Tetanus Immunizations Tetanus Immunization: Unknown - Past Medical History & Family History Past Medical History?: Yes Past Family History: Reviewed and not pertinent - Past Social History Smoking Status: Light Smoker < 10 Cigarettes Daily Chewing Tobacco Use: No Cigar Use: No Alcohol: None Drugs: Denies Home Situation {Lives}: Alone - CARDIAC Hx Congestive Heart Failure: Yes Hx Hypertension: Yes - PULMONARY Hx Chronic Obstructive Pulmonary Disease (COPD): Yes - NEUROLOGICAL Hx Seizures: No - HEENT Hx HEENT Problems: No Hx Cataracts: Yes - RENAL Hx Chronic Kidney Disease: No - ENDOCRINE/METABOLIC Hx Diabetes Mellitus Type 2: Yes - HEMATOLOGICAL/ONCOLOGICAL Hx Human Immunodeficiency Virus (HIV): No - INTEGUMENTARY Other/Comment: pvd - MUSCULOSKELETAL/RHEUMATOLOGICAL Hx Falls: No - GASTROINTESTINAL Hx Gastrointestinal Disorders: No - GENITOURINARY/GYNECOLOGICAL Hx Sexually Transmitted Disorders: No - PSYCHIATRIC Hx Anxiety: Yes Hx Bipolar Disorder: Yes Hx Depression: Yes Hx Substance Use: No - SURGICAL HISTORY Hx Surgeries: Yes Other/Comment: right BKA - ANESTHESIA Hx Anesthesia: Yes Hx Anesthesia Reactions: No Hx Malignant Hyperthermia: No Meds Allergies/Adverse Reactions: Allergies Allergy/AdvReac Type Severity Reaction Status Date / Time aminothiols Allergy Mild RASH Uncoded 03/23/18 08:12 CONTRAST AdvReac Intermediate "SPACED Uncoded 03/23/18 08:12 OUT" - Medications Medications: Current Medications Aspirin (Aspirin Chewable) 81 mg PO DAILY [facility] Last Admin: 04/02/18 18:34 Dose: 81 mg Clopidogrel Bisulfate (Plavix) 75 mg PO DAILY [facility] Diphenhydramine HCl (Benadryl) 25 mg PO Q6 [facility] Last Admin: 04/02/18 18:17 Dose: Not Given Divalproex Sodium (Depakote Er) 250 mg PO HS [facility] Last Admin: 04/01/18 21:18 Dose: 250 mg Docusate Sodium (Colace) 100 mg PO DAILY [facility] Last Admin: 04/02/18 10:32 Dose: 100 mg Escitalopram Oxalate (Lexapro) 10 mg PO DAILY [facility] Last Admin: 04/02/18 10:32 Dose: 10 mg Furosemide (Lasix) 40 mg PO BID [facility] Last Admin: 04/02/18 18:18 Dose: Not Given Insulin Human Regular 100 unit (/ Sodium Chloride) 100 mls @ 3 mls/hr IV .Q24H [facility] PRN Reason: Protocol Last Admin: 04/02/18 11:24 Dose: 3 mls/hr Phenylephrine HCl 30 mg/ (Sodium Chloride) 253 mls @ 10.12 mls/hr IV .Q24H PRN ; Protocol; 20 MCG/MIN PRN Reason: TITRATE PER MD ORDER Sodium Chloride (Sodium Chloride 0.9%) 1,000 mls @ 125 mls/hr IV .Q8H [facility] Last Admin: 04/02/18 18:31 Dose: 125 mls/hr Sodium Chloride (Sodium Chloride 0.9%) 250 mls @ 250 mls/hr IV .Q1H ONE Stop: 04/02/18 19:34 Ibuprofen (Motrin Tab) 800 mg PO Q6H PRN PRN Reason: Pain, moderate (4-7) Insulin Detemir (Levemir) 20 unit SC HS [facility] Last Admin: 04/01/18 21:19 Dose: 20 unit Insulin Human Regular (Novolin R) 0 unit SC Q4H [facility] Last Admin: 04/02/18 18:19 Dose: Not Given Lisinopril (Zestril) 5 mg PO DAILY [facility] Last Admin: 04/02/18 10:34 Dose: 5 mg Lorazepam (Ativan) 1 mg PO QID PRN PRN Reason: Anxiety Last Admin: 03/26/18 22:12 Dose: 1 mg Mupirocin (Bactroban Ointment) 0 gm TOP BID [facility] Last Admin: 04/02/18 18:16 Dose: 1 applic Nystatin (Mycostatin Cream) 0 ea TOP TID [facility] Last Admin: 04/02/18 18:19 Dose: 1 applic Pregabalin (Lyrica) 50 mg PO TID [facility] Last Admin: 04/02/18 18:18 Dose: Not Given Quetiapine Fumarate (Seroquel) 25 mg PO BID [facility] Last Admin: 04/02/18 18:20 Dose: Not Given Sitagliptin Phosphate (Januvia) 25 mg PO DAILY [facility] Last Admin: 04/02/18 10:34 Dose: 25 mg Physical Exam - Constitutional Appears: Well, No Acute Distress - Head Exam Head Exam: ATRAUMATIC, NORMAL INSPECTION, NORMOCEPHALIC - Eye Exam Eye Exam: EOMI, Normal appearance Pupil Exam: PERRL - ENT Exam ENT Exam: Mucous Membranes Moist - Neck Exam Additional comments: (+) left EJ central line - Respiratory Exam Respiratory Exam: Wheezes (scattered), NORMAL BREATHING PATTERN. absent: Accessory Muscle Use, Respiratory Distress - Cardiovascular Exam Cardiovascular Exam: REGULAR RHYTHM, +S1, +S2. absent: Gallop, Rubs - GI/Abdominal Exam GI & Abdominal Exam: Normal Bowel Sounds, Soft. absent: Tenderness - Exam Additional comments: (+) fole in place draining clear yellow urine - Extremities Exam Extremities exam: Positive for: pedal pulses present (Right DP pulse obtained via dopplar) Additional comments: (+) 3+ bilateral upper extremity radial pulses; (+) left bka, well healed; (+) a -line in left radial artery which is clean, dry, intact; (+) pressure dressing over left groin which is clean, dry and intact - Neurological Exam Neurological exam: Alert (Pt answers questions appropriately, but is only oriented to time and person; she may still be under residual effects of anesthesia) Results - Vital Signs Recent Vital Signs: Last Vital Signs Temp 98.7 F 04/02/18 11:15 Pulse 81 04/02/18 12:00 Resp 16 04/02/18 12:00 BP 107/71 04/02/18 11:15 Pulse Ox 95 04/02/18 12:00 - Labs Result Diagrams: 04/02/18 18:18 04/02/18 18:18 Labs: Laboratory Results - last 24 hr 04/01/18 04/01/18 04/02/18 16:19 20:56 02:09 WBC RBC Hgb Hct MCV MCH MCHC RDW Plt Count MPV PT INR APTT Sodium Potassium Chloride Carbon Dioxide Anion Gap BUN Creatinine Est GFR ( Amer) Est GFR (Non-Af Amer) POC Glucose (mg/dL) 248 H 325 H 250 H Random Glucose Calcium Phosphorus Magnesium Total Bilirubin AST ALT Alkaline Phosphatase Total Protein Albumin Globulin Albumin/Globulin Ratio 04/02/18 04/02/18 04/02/18 06:52 06:52 06:52 WBC 13.0 H RBC 5.96 H Hgb 16.2 H Hct 49.2 H MCV 82.5 MCH 27.2 MCHC 33.0 RDW 15.2 H Plt Count 237 MPV 10.1 PT 10.3 INR 0.9 APTT 28 Sodium 137 Potassium 4.7 Chloride 104 Carbon Dioxide 17 L Anion Gap 21 H BUN 60 H Creatinine 1.5 H Est GFR ( Amer) 42 Est GFR (Non-Af Amer) 34 POC Glucose (mg/dL) Random Glucose 333 H Calcium 9.4 Phosphorus 5.1 H Magnesium 2.5 H Total Bilirubin 0.3 AST 22 ALT 14 Alkaline Phosphatase 124 Total Protein 6.8 Albumin 3.8 Globulin 3.0 Albumin/Globulin Ratio 1.3 08/10/1904/02/18 04/02/18 07:06 10:07 10:55 WBC RBC Hgb Hct MCV MCH MCHC RDW Plt Count MPV PT INR APTT Sodium Potassium Chloride Carbon Dioxide Anion Gap BUN Creatinine Est GFR ( Amer) Est GFR (Non-Af Amer) POC Glucose (mg/dL) 365 H 329 H 293 H Random Glucose Calcium Phosphorus Magnesium Total Bilirubin AST ALT Alkaline Phosphatase Total Protein Albumin Globulin Albumin/Globulin Ratio 04/02/18 04/02/18 04/02/18 11:17 11:57 12:29 WBC RBC Hgb Hct MCV MCH MCHC RDW Plt Count MPV PT INR APTT Sodium Potassium Chloride Carbon Dioxide Anion Gap BUN Creatinine Est GFR ( Amer) Est GFR (Non-Af Amer) POC Glucose (mg/dL) 268 H 245 H 224 H Random Glucose Calcium Phosphorus Magnesium Total Bilirubin AST ALT Alkaline Phosphatase Total Protein Albumin Globulin Albumin/Globulin Ratio 04/02/18 04/02/18 04/02/18 13:17 14:16 15:18 WBC RBC Hgb Hct MCV MCH MCHC RDW Plt Count MPV PT INR APTT Sodium Potassium Chloride Carbon Dioxide Anion Gap BUN Creatinine Est GFR ( Amer) Est GFR (Non-Af Amer) POC Glucose (mg/dL) 203 H 198 H 176 H Random Glucose Calcium Phosphorus Magnesium Total Bilirubin AST ALT Alkaline Phosphatase Total Protein Albumin Globulin Albumin/Globulin Ratio 04/02/18 04/02/18 04/02/18 16:19 18:18 18:18 WBC 26.8 H D RBC 5.13 Hgb 13.5 D Hct 41.8 MCV 81.5 MCH 26.3 L MCHC 32.3 L RDW 15.2 H Plt Count 258 MPV 9.1 PT INR APTT Sodium 137 Potassium 4.9 Chloride 109 H Carbon Dioxide 17 L Anion Gap 16 BUN 53 H Creatinine 1.5 H Est GFR ( Amer) 42 Est GFR (Non-Af Amer) 34 POC Glucose (mg/dL) 179 H Random Glucose 163 H Calcium 8.6 Phosphorus 6.0 H Magnesium 2.1 Total Bilirubin AST ALT Alkaline Phosphatase Total Protein Albumin Globulin Albumin/Globulin Ratio Assessment & Plan - Assessment and Plan (Free Text) Assessment: This is a 72 year old female with PMHx of PVD s/p multiple endovascular stent placements to left iliac, SFA and popliteal, DM, HTN, hypercholesterolemia, right BKA, bipolar depression disorder with multiple psychiatric admissions, who presented to ICU s/p LLE fem-pop bypass with reversed GSV graft and on table angiogram at [facility] [place]. Initially, pt was sent to the ED on 03/23 for medical clearance for this procedure. Pt was asymptomatic at that time and not in any acute distress. During the procedure, pt developed hypotension after induction requiring starting of a phenylephrine gtt. Pt was maintained on this drip until completion of the procedure. Due to BP being labile, the rate ranged from 25 mcg/min to 75 mcg/min (avg of 50 mcg/min). EBL was 400 mL, and she received 2300 mL of fluids. 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, 50% stenosis of mid LAD, 70-80% occlusion of first obtuse marginal - CBC s/p surgery shows Hgb is 13.2 - NS 250 mL bolus, NS IVF at 125 mL/hr - will start phenylephrine gtt - plavix as per [facility] surgery - pulse check q1 hour - f/u vascular surgery recs - f/u cardiology recs for BP management Pulm: - CXR (03/23) shows no active disease - spo2 remains above 95% on NC 2L - NC prn GI: - CLD; diet will be advanced as per surgery - no need for pud ppx at this time as pt does not have 1 major or 2 minor criteria for ppx Renal: - shan; bun/cr is 53/1.5 (likely due to contrast dye) - avoid nephrotoxic medications - hold lasix, hold losartan until shan resolves - strict I and O - maintain a minimum of 0.5 mL/hr output - maintain euvolemia - replete electrolytes as needed - renal us (04/01) shows echogenic right kidney with normal cortical echogenicity of the left kidney. small bilateral renal cortical cysts. no hydronephrosis. - f/u cmp in am - f/u nephrology recs Endo: - maintain euglycemia - Levemir for basal, Novolin q4h - continue home januvia - Accucheck q4h Heme: - Hgb is 13.5; s/p EBL of 400 - PTT elevated at 118; pt last received heparin at 15:40 - f/u labs in am ID: - leukocytosis at 26.8 (likely due to steroid protocol prior to surgery) - no signs of infection - afebrile - f/u cbc in am Psych: - hold home depakote, lexapro, seroquel as pt is in shan ppx: no pud due to no criteria being fulfilled; ptt is currently elevated at 118 Dispo: admit to ICU for cardiovascular and neurological monitoring Case was reviewed and discussed with attending physician, Dr. Ha
[2018-04-02 19:04] LABS: INR 1.1; PROTHROMBIN TIME 11.5 SECONDS (9.7-12.2)
[2018-04-02] MEDS: Insulin Detemir 100 units/ml Vial (Levemir) SC SCH (22:01)
[2018-04-03] MEDS: Sodium Chloride 0.9% 1,000 ML IV SCH ×4 (01:44→18:19)
[2018-04-03] MEDS: (Novolin R) Insulin Human Regular 100 units/ml vial SC SCH ×5 (04:30→20:07)
[2018-04-03 06:35] LABS: HEMOGLOBIN 13.9 g/dL (11.0-16.0); MEAN CELL VOLUME 82.2 fL (81.0-99.0); MEAN CORPUSCULAR HEMOGLOBIN 27.4 pg (27.0-31.0); MEAN CORPUSCULAR HGB CONC 33.4 g/dL (33.0-37.0); MEAN PLATELET VOLUME 9.5 fL (7.2-11.7); RBC 5.07 Mil/uL (3.80-5.20); RED CELL DISTRIBUTION WIDTH 15.9 % (11.5-14.5); WHITE BLOOD COUNT 13.6 K/uL (4.8-10.8)
[2018-04-03 06:39] LABS: PROTHROMBIN TIME 10.6 SECONDS (9.7-12.2)
[2018-04-03 06:48] LABS: ALB/GLOB RATIO 1.2 (1.0-2.1); ALBUMIN 2.8 g/dL (3.5-5.0); CALCIUM 8.6 mg/dl (8.6-10.4)
--- NOTE | 2018-04-03 07:30 | OP ---
Copied To: Aneesh Lam Jr., MD Attending MD: Aneesh Lam Jr., MD PROCEDURE DATE: 04/02/2018 PREOPERATIVE DIAGNOSIS: Ischemic ulceration, dry gangrene of left great toe. PROCEDURE CARRIED OUT: Left femoral popliteal bypass using reverse saphenous vein with intraoperative arteriogram. SURGEON: Aneesh Lam Jr., MD ASSISTANTS: Star Villalba DO; and Andrew Sewell DO TYPE OF ANESTHESIA: General anesthesia. ANESTHESIOLOGIST: Mary INDICATIONS: A 72-year-old diabetic woman with previous amputation of the other leg, multiple interventional procedures on this leg. OPERATIVE FINDINGS: 1. The operation was more difficult than the usual due to scarring in the groin which made the dissection of the common femoral artery difficult. 2. At the end of the procedure, we had excellent Doppler signals over the dorsalis pedis artery. 3. The popliteal artery was somewhat small and atretic, but had a clean lumen. The vein was of borderline size and quality, measuring approximately 3.5 to 4 mm. DESCRIPTION OF PROCEDURE: The patient was given general anesthesia and intravenous antibiotics. The groin was dissected free, dissecting out the common femoral artery. The vein was then dissected out from the groin down to the mid calf. After this had been done, the vein was inspected for size and was of marginal quality. Any rents were closed and sutures were placed to control this. After this had been done, we then did the distal anastomosis first using loupe magnification, heparin anticoagulation, and tourniquet control. After this had been done, it was brought out to a previously created tunnel and anastomosed in the groin. After this had been done, we hemostasis, but there was a diffuse ooze from all the tissues. The blood loss was approximately 400 mL to 500 mL during the procedure. There were excellent Doppler signals throughout. The completion arteriogram showed an area of spasm after distal anastomosis secondary to the fact that this was done while the blood was not flowing and it was a dry film. Apart from that, when we completed the operation, there was excellent flow throughout the leg and throughout the graft. OPERATION: Left femoral popliteal bypass using reverse saphenous vein with intraoperative arteriogram. The operation was more difficult than usual due to the previous scarring in the groin involving interventional procedures. Aneesh Lam Jr., MD [facility] # [id number]
[2018-04-03] MEDS: oxyCODONE 5 mg Immediate Release Tab PO PRN (09:23)
--- NOTE | 2018-04-03 10:23 | PN ---
Copied To: Haja Pink DO Attending MD: Haja Pink DO DATE: 04/03/2018 SUBJECTIVE: She is status post procedure of the left leg with Dr. Lam. The leg is warmer this morning, better pulses. She is on aspirin, Ativan, Bactroban, Colace, Depakote, insulin, Januvia, Levemir, Lexapro, Lyrica, Motrin, Mycostatin, Novolin, oxycodone, phenylephrine, Plavix, Seroquel, and IV fluids. PHYSICAL EXAMINATION: GENERAL: She is very alert, talking, animated. She is also very hungry, which is unclear right now, may be Surgery will increase her diet. VITAL SIGNS: She has a 98.2 temp, 67 pulse, 139/39 blood pressure, 16 respiratory rate, 98% O2 sat on 2 L nasal cannula. HEENT: Head is atraumatic, normocephalic. Throat is moist. NECK: Supple. HEART: Regular rate. LUNGS: Decreased breath sounds, but clear. ABDOMEN: Soft. EXTREMITIES: She has right BKA and the left leg is bandaged, but no edema. LABORATORY DATA: She has a 26.8 white count, 13.5 hemoglobin, 41.8 hematocrit, 258 platelets. She has 137 sodium, potassium 4.9, BUN 33, creatinine 1.5, last blood sugar was 135, calcium is 8.6, magnesium 2.1, phosphorus as high as 6. She has been seen by Renal, Vascular, Cardiology. She is status post multiple endovascular stent placements to the left iliac, SFA, and popliteal vessels. We will continue with aggressive treatment and care in the intensive care unit. We will check her labs tomorrow. She is off prednisone at this time, which is good. Hopefully, the white count will come down after good response to the prednisone. I will call Dr. Morgan, Infectious Disease, to make sure we are not missing any infection. Haja Pink DO
[2018-04-03] MEDS: Insulin Human Regular 100 UNIT in Sodium Chloride 0.9% 99 ML IV SCH (10:35)
[2018-04-03] MEDS: Nystatin 100,000 Units/gm Cream(15 gm) TOP SCH ×3 (10:38→18:00)
--- NOTE | 2018-04-03 11:50 | CP.PCM.PN ---
Subjective - Date & Time of Evaluation Date of Evaluation: 04/03/18 Time of Evaluation: 11:47 - Subjective Subjective: s/p left LE vascular bypass has been hypotensive post-op; OBEY I med stopped- agree with this creat stable, UO adequate no dyspnea, n, v, diarrhea, CPs, dysuria c/o incisional pains Objective - Vital Signs/Intake and Output Vital Signs (last 24 hours): Temp Pulse Resp BP Pulse Ox 98.2 F 79 16 121/52 L 97 04/03/18 08:00 04/03/18 11:30 04/03/18 11:30 04/03/18 11:00 04/03/18 11:30 Intake and Output: 04/03/18 04/03/18 06:59 18:59 Intake Total 2818.9 715 Output Total 940 580 Balance 1878.9 135 - Medications Medications: Current Medications Aspirin (Aspirin Chewable) 81 mg PO DAILY [facility] Last Admin: 04/03/18 10:25 Dose: 81 mg Clopidogrel Bisulfate (Plavix) 75 mg PO DAILY [facility] Last Admin: 04/03/18 10:33 Dose: 75 mg Divalproex Sodium (Depakote Er) 250 mg PO HS [facility] Last Admin: 04/01/18 21:18 Dose: 250 mg Docusate Sodium (Colace) 100 mg PO DAILY [facility] Last Admin: 04/03/18 10:33 Dose: 100 mg Escitalopram Oxalate (Lexapro) 10 mg PO DAILY [facility] Last Admin: 04/02/18 10:32 Dose: 10 mg Heparin Sodium (Porcine) (Heparin) 5,000 units SC Q12 [facility] Last Admin: 04/03/18 10:34 Dose: 5,000 units Insulin Human Regular 100 unit (/ Sodium Chloride) 100 mls @ 3 mls/hr IV .Q24H [facility] PRN Reason: Protocol Last Admin: 04/03/18 10:35 Dose: Not Given Phenylephrine HCl 30 mg/ (Sodium Chloride) 253 mls @ 10.12 mls/hr IV .Q24H PRN ; Protocol; 20 MCG/MIN PRN Reason: TITRATE PER MD ORDER Last Titration: 04/03/18 04:29 Dose: 0 mcg/min, 0 mls/hr Sodium Chloride (Sodium Chloride 0.9%) 1,000 mls @ 60 mls/hr IV .[id number] [facility] Last Admin: 04/03/18 10:36 Dose: Not Given Insulin Detemir (Levemir) 20 unit SC HS [facility] Last Admin: 04/02/18 22:01 Dose: 20 unit Insulin Human Regular (Novolin R) 0 unit SC Q4H [facility] Last Admin: 04/03/18 11:40 Dose: Not Given Lorazepam (Ativan) 1 mg PO QID PRN PRN Reason: Anxiety Last Admin: 03/26/18 22:12 Dose: 1 mg Mupirocin (Bactroban Ointment) 0 gm TOP BID [facility] Last Admin: 04/03/18 10:37 Dose: 1 applic Nystatin (Mycostatin Cream) 0 ea TOP TID [facility] Last Admin: 04/03/18 10:38 Dose: 1 applic Oxycodone HCl (Oxycodone Immediate Release Tab) 5 mg PO Q4H PRN PRN Reason: Pain, severe (8-10) Last Admin: 04/03/18 09:23 Dose: 5 mg Pregabalin (Lyrica) 50 mg PO TID [facility] Last Admin: 04/03/18 10:25 Dose: 50 mg Quetiapine Fumarate (Seroquel) 25 mg PO BID [facility] Last Admin: 04/02/18 18:20 Dose: Not Given Sitagliptin Phosphate (Januvia) 25 mg PO DAILY [facility] Last Admin: 04/03/18 10:33 Dose: 25 mg - Labs Labs: 04/03/18 06:24 04/03/18 06:24 PT 10.6 SECONDS (9.7-12.2) 04/03/18 06:24 INR 1.0 04/03/18 06:24 APTT 23 SECONDS (21-34) D 04/03/18 06:24 - Constitutional Appears: No Acute Distress, Chronically Ill - Head Exam Head Exam: ATRAUMATIC, NORMAL INSPECTION - Eye Exam Eye Exam: EOMI, Normal appearance - Neck Exam Neck Exam: Normal Inspection. absent: Tenderness - Respiratory Exam Respiratory Exam: Clear to Ausculation Bilateral, NORMAL BREATHING PATTERN - Cardiovascular Exam Cardiovascular Exam: REGULAR RHYTHM, +S1 - GI/Abdominal Exam GI & Abdominal Exam: Soft. absent: Tenderness - Extremities Exam Extremities Exam: Normal Inspection. absent: Tenderness - Neurological Exam Neurological Exam: Awake, CN II-XII Intact - Skin Skin Exam: Dry, Warm Assessment and Plan (1) DM type 2 (diabetes mellitus, type 2) Status: Acute (2) CKD (chronic kidney disease) stage 3, GFR 30-59 ml/min Status: Acute (3) Peripheral vascular disease Status: Acute (4) Bipolar disorder Status: Acute - Assessment and Plan (Free Text) Plan: stop OBEY I- has 1 poorly functional kidney IV fluids- mild hydration wound care monitor BP stop NSAIDs
--- NOTE | 2018-04-03 14:50 | CP.PCM.CON ---
History of Present Illness - History of Present Illness History of Present Illness: 72 y/o F patient presented to the ED with worsening PVD and left foot discomfort. Recently underwent femoral-popliteal bypass for PAD in her left lower extremity. ID consulted for post op leukocytosis s/p fem pop bypass PMH: PVD s/p multple endovascular stent placement to L iliac, SFA and popliteal , DM type 2, HTN, bipolar depression do with multiple psychiatric admissions PSH: right BKA, right hip surgery, left femur sx, multiple angios FH- N/C Social hx- negative for ETOH, neg drugs , positive for smoking in past Review of Systems - Constitutional Constitutional: Malaise, Weakness - EENT Eyes: absent: As Per HPI, Blind Spots, Blurred Vision, Change in Vision, Decreased Night Vision, Diplopia, Discharge, Dry Eye, Exophthalmos, Floaters, Irritation, Itchy Eyes, Loss of Peripheral Vision, Pain, Photophobia, Requires Corrective Lenses, Sees Flashes, Spots in Vision, Tunnel Vision, Other Visual Disturbances, Loss of Vision, Other Ears: absent: As Per HPI, Decreased Hearing, Ear Discharge, Ear Pain, Tinnitus, Abnormal Hearing, Disequilibrium, Dizziness, Other Nose/Mouth/Throat: absent: As Per HPI, Epistaxis, Nasal Congestion, Nasal Discharge, Nasal Obstruction, Nasal Trauma, Nose Pain, Post Nasal Drip, Sinus Pain, Sinus Pressure, Bleeding Gums, Change in Voice, Dental Pain, Dry Mouth, Dysphagia, Halitosis, Hoarsness, Lip Swelling, Mouth Lesions, Mouth Pain, Odynophagia, Sore Throat, Throat Swelling, Tongue Swelling, Facial Pain, Neck Pain, Neck Mass, Other - Cardiovascular Cardiovascular: absent: As Per HPI, Acrocyanosis, Chest Pain, Chest Pain at Rest , Chest Pain with Activity, Claudication, Diaphoresis, Dyspnea, Dyspnea on Exertion, Edema, Irregular Heart Rhythm, Pain Radiating to Arm/Neck/Jaw, Leg Edema, Leg Ulcers, Lightheadedness, Orthopnea, Palpitations, Paroxysmal Nocturnal Dyspnea, Pedal Edema, Radiating Pain, Rapid Heart Rate, Slow Heart Rate, Syncope, Other - Respiratory Respiratory: absent: As Per HPI, Cough, Dyspnea, Hemoptysis, Dyspnea on Exertion , Wheezing, Snoring, Stridor, Pain on Inspiration, Chest Congestion, Excessive Mucous Production, Change in Mucous Color, Pain with Coughing, Other - Gastrointestinal Gastrointestinal: absent: As Per HPI, Abdominal Pain, Belching, Bloating, Change in Bowel Habits, Change in Stool Character, Coffee Ground Emesis, Constipation, Cramping, Diarrhea, Dyspepsia, Dysphagia, Early Satiety, Excessive Flatus, Fecal Incontinence, Heartburn, Hematemesis, Hematochezia, Loose Stools, Melena, Nausea, Odynophagia, Temesmus, Vomiting, Other - Genitourinary Genitourinary: Voiding Freq/Small Amts - Musculoskeletal Musculoskeletal: Muscle Cramps, Muscle Weakness, Myalgias - Neurological Neurological: absent: As Per HPI, Abnormal Gait, Abnormal Hearing, Abnormal Movements, Abnormal Speech, Behavioral Changes, Burning Sensations, Confusion, Convulsions, Disequilibrium, Dizziness, Numbness, Focal Weakness, Frequent Falls , Headaches, Lack of Coordination, Loss of Vision, Memory Loss, Paresthesias, Radicular Pain, Restless Legs, Sensory Deficit, Syncope, Tingling, Tremor, Vertigo, Weakness, Other Visual Disturbances, Other Past Patient History - Tetanus Immunizations Tetanus Immunization: Unknown - Past Medical History & Family History Past Medical History?: Yes Past Family History: Reviewed and not pertinent - Past Social History Smoking Status: Light Smoker < 10 Cigarettes Daily Chewing Tobacco Use: No Cigar Use: No Alcohol: None Drugs: Denies Home Situation {Lives}: Alone - CARDIAC Hx Congestive Heart Failure: Yes Hx Hypertension: Yes - PULMONARY Hx Chronic Obstructive Pulmonary Disease (COPD): Yes - NEUROLOGICAL Hx Seizures: No - HEENT Hx HEENT Problems: No Hx Cataracts: Yes - RENAL Hx Chronic Kidney Disease: No - ENDOCRINE/METABOLIC Hx Diabetes Mellitus Type 2: Yes - HEMATOLOGICAL/ONCOLOGICAL Hx Human Immunodeficiency Virus (HIV): No - INTEGUMENTARY Other/Comment: pvd - MUSCULOSKELETAL/RHEUMATOLOGICAL Hx Falls: No - GASTROINTESTINAL Hx Gastrointestinal Disorders: No - GENITOURINARY/GYNECOLOGICAL Hx Sexually Transmitted Disorders: No - PSYCHIATRIC Hx Anxiety: Yes Hx Bipolar Disorder: Yes Hx Depression: Yes Hx Substance Use: No - SURGICAL HISTORY Hx Surgeries: Yes Other/Comment: right BKA - ANESTHESIA Hx Anesthesia: Yes Hx Anesthesia Reactions: No Hx Malignant Hyperthermia: No Meds Allergies/Adverse Reactions: Allergies Allergy/AdvReac Type Severity Reaction Status Date / Time aminothiols Allergy Mild RASH Uncoded 03/23/18 08:12 CONTRAST AdvReac Intermediate "SPACED Uncoded 03/23/18 08:12 OUT" - Medications Medications: Current Medications Aspirin (Aspirin Chewable) 81 mg PO DAILY [facility] Last Admin: 04/03/18 10:25 Dose: 81 mg Clopidogrel Bisulfate (Plavix) 75 mg PO DAILY [facility] Last Admin: 04/03/18 10:33 Dose: 75 mg Divalproex Sodium (Depakote Er) 250 mg PO [facility] Last Admin: 04/01/18 21:18 Dose: 250 mg Docusate Sodium (Colace) 100 mg PO DAILY [facility] Last Admin: 04/03/18 10:33 Dose: 100 mg Escitalopram Oxalate (Lexapro) 10 mg PO DAILY [facility] Last Admin: 04/02/18 10:32 Dose: 10 mg Heparin Sodium (Porcine) (Heparin) 5,000 units SC Q12 [facility] Last Admin: 04/03/18 10:34 Dose: 5,000 units Sodium Chloride (Sodium Chloride 0.9%) 1,000 mls @ 60 mls/hr IV .[id number] [facility] Last Admin: 04/03/18 10:36 Dose: Not Given Insulin Detemir (Levemir) 20 unit SC [facility] Last Admin: 04/02/18 22:01 Dose: 20 unit Insulin Human Regular (Novolin R) 0 unit SC Q4H [facility] Last Admin: 04/03/18 11:40 Dose: Not Given Lorazepam (Ativan) 1 mg PO QID PRN PRN Reason: Anxiety Last Admin: 03/26/18 22:12 Dose: 1 mg Mupirocin (Bactroban Ointment) 0 gm TOP BID [facility] Last Admin: 04/03/18 10:37 Dose: 1 applic Nystatin (Mycostatin Cream) 0 ea TOP TID [facility] Last Admin: 04/03/18 14:17 Dose: 1 applic Oxycodone HCl (Oxycodone Immediate Release Tab) 5 mg PO Q4H PRN PRN Reason: Pain, severe (8-10) Last Admin: 04/03/18 09:23 Dose: 5 mg Pregabalin (Lyrica) 50 mg PO TID [facility] Last Admin: 04/03/18 14:11 Dose: 50 mg Quetiapine Fumarate (Seroquel) 25 mg PO BID [facility] Last Admin: 04/02/18 18:20 Dose: Not Given Sitagliptin Phosphate (Januvia) 25 mg PO DAILY [facility] Last Admin: 04/03/18 10:33 Dose: 25 mg Physical Exam - Constitutional Appears: Non-toxic, Chronically Ill - Head Exam Head Exam: NORMOCEPHALIC - Eye Exam Eye Exam: PERRL. absent: Scleral icterus Pupil Exam: absent: NORMAL ACCOMODATION - ENT Exam ENT Exam: Mucous Membranes Dry, Normal External Ear Exam - Neck Exam Neck exam: Negative for: Lymphadenopathy - Respiratory Exam Respiratory Exam: Decreased Breath Sounds, Prolonged Expiratory Phase, Rhonchi - Cardiovascular Exam Cardiovascular Exam: REGULAR RHYTHM, +S1, +S2 - GI/Abdominal Exam GI & Abdominal Exam: Diminished Bowel Sounds, Soft. absent: Tenderness - Rectal Exam Rectal Exam: Deferred - Exam Exam: NORMAL INSPECTION - Extremities Exam Extremities exam: Positive for: pedal edema, tenderness. Negative for: calf tenderness, pedal pulses present Additional comments: right BKA s/p right BKA with good wound healing, left foot has erythema consistent with known vasculopathy, dopplerable but not palpable DP and PT pulses in the left foot - Back Exam Back exam: absent: CVA tenderness (L), CVA tenderness (R) - Neurological Exam Neurological exam: Alert, CN II-XII Intact, Oriented x3, Reflexes Normal - Psychiatric Exam Psychiatric exam: Normal Mood - Skin Skin Exam: Dry, Intact Results - Vital Signs Recent Vital Signs: Last Vital Signs Temp 98.3 F 04/03/18 12:00 Pulse 70 04/03/18 14:00 Resp 28 H 04/03/18 13:00 BP 88/49 L 04/03/18 13:55 Pulse Ox 94 L 04/03/18 14:00 - Labs Result Diagrams: 04/03/18 06:24 04/03/18 06:24 Labs: Laboratory Results - last 24 hr 04/02/18 04/02/18 04/02/18 15:18 16:19 17:48 WBC RBC Hgb Hct MCV MCH MCHC RDW Plt Count MPV PT INR APTT Sodium Potassium Chloride Carbon Dioxide Anion Gap BUN Creatinine Est GFR ( Amer) Est GFR (Non-Af Amer) POC Glucose (mg/dL) 176 H 179 H 162 H Random Glucose Calcium Phosphorus Magnesium Total Bilirubin AST ALT Alkaline Phosphatase Total Protein Albumin Globulin Albumin/Globulin Ratio Blood Type Antibody Screen 04/02/18 04/02/18 04/02/18 18:13 18:18 18:18 WBC 26.8 H D RBC 5.13 Hgb 13.5 D Hct 41.8 MCV 81.5 MCH 26.3 L MCHC 32.3 L RDW 15.2 H Plt Count 258 MPV 9.1 PT INR APTT Sodium 137 Potassium 4.9 Chloride 109 H Carbon Dioxide 17 L Anion Gap 16 BUN 53 H Creatinine 1.5 H Est GFR ( Amer) 42 Est GFR (Non-Af Amer) 34 POC Glucose (mg/dL) Random Glucose 163 H Calcium 8.6 Phosphorus 6.0 H Magnesium 2.1 Total Bilirubin AST ALT Alkaline Phosphatase Total Protein Albumin Globulin Albumin/Globulin Ratio Blood Type A NEGATIVE Antibody Screen Negative 04/02/18 04/02/18 04/02/18 18:18 19:54 20:16 WBC RBC Hgb Hct MCV MCH MCHC RDW Plt Count MPV PT 11.5 INR 1.1 APTT 118 H* D Sodium Potassium Chloride Carbon Dioxide Anion Gap BUN Creatinine Est GFR ( Amer) Est GFR (Non-Af Amer) POC Glucose (mg/dL) 172 H 195 H Random Glucose Calcium Phosphorus Magnesium Total Bilirubin AST ALT Alkaline Phosphatase Total Protein Albumin Globulin Albumin/Globulin Ratio Blood Type Antibody Screen 04/02/18 04/03/18 04/03/18 23:11 04:17 06:24 WBC 13.6 H RBC 5.07 Hgb 13.9 Hct 41.7 MCV 82.2 MCH 27.4 MCHC 33.4 RDW 15.9 H Plt Count 155 D MPV 9.5 PT INR APTT Sodium Potassium Chloride Carbon Dioxide Anion Gap BUN Creatinine Est GFR ( Amer) Est GFR (Non-Af Amer) POC Glucose (mg/dL) 285 H 135 H Random Glucose Calcium Phosphorus Magnesium Total Bilirubin AST ALT Alkaline Phosphatase Total Protein Albumin Globulin Albumin/Globulin Ratio Blood Type Antibody Screen 04/03/18 04/03/18 04/03/18 06:24 06:24 07:34 WBC RBC Hgb Hct MCV MCH MCHC RDW Plt Count MPV PT 10.6 INR 1.0 APTT 23 D Sodium 140 Potassium 4.1 Chloride 109 H Carbon Dioxide 22 Anion Gap 13 BUN 46 H Creatinine 1.4 H Est GFR ( Amer) 45 Est GFR (Non-Af Amer) 37 POC Glucose (mg/dL) 97 Random Glucose 110 H Calcium 8.6 Phosphorus 4.0 Magnesium 2.2 Total Bilirubin 0.5 AST 21 ALT 21 Alkaline Phosphatase 67 Total Protein 5.1 L Albumin 2.8 L D Globulin 2.4 Albumin/Globulin Ratio 1.2 Blood Type Antibody Screen 04/03/18 11:28 WBC RBC Hgb Hct MCV MCH MCHC RDW Plt Count MPV PT INR APTT Sodium Potassium Chloride Carbon Dioxide Anion Gap BUN Creatinine Est GFR ( Amer) Est GFR (Non-Af Amer) POC Glucose (mg/dL) 127 H Random Glucose Calcium Phosphorus Magnesium Total Bilirubin AST ALT Alkaline Phosphatase Total Protein Albumin Globulin Albumin/Globulin Ratio Blood Type Antibody Screen Assessment & Plan (1) CKD (chronic kidney disease) stage 3, GFR 30-59 ml/min Status: Acute (2) DM type 2 (diabetes mellitus, type 2) Status: Acute (3) Peripheral vascular disease Status: Acute (4) Altered mental status Status: Acute (5) Bipolar disorder Status: Acute (6) Cellulitis, leg Status: Acute - Assessment and Plan (Free Text) Assessment: leukocytosis likely reactive no fever or other signs of sepsis will obtain procalcitonin level, review CXR and culture if ppatient spikes fever
--- NOTE | 2018-04-03 16:22 | CP.PCM.PN ---
Subjective - Date & Time of Evaluation Date of Evaluation: 04/03/18 Time of Evaluation: 06:30 - Subjective Subjective: Patient seen and examined. No acute events overnight. Received 1uPRBC, Hgb stable at 13.9. +doppler signals PT/OT. Objective - Vital Signs/Intake and Output Vital Signs (last 24 hours): Temp Pulse Resp BP Pulse Ox 98.3 F 75 28 H 113/53 L 96 04/03/18 12:00 04/03/18 15:00 04/03/18 13:00 04/03/18 14:55 04/03/18 15:00 Intake and Output: 04/03/18 04/03/18 06:59 18:59 Intake Total 2818.9 1075 Output Total 940 580 Balance 1878.9 495 - Medications Medications: Current Medications Aspirin (Aspirin Chewable) 81 mg PO DAILY [facility] Last Admin: 04/03/18 10:25 Dose: 81 mg Clopidogrel Bisulfate (Plavix) 75 mg PO DAILY [facility] Last Admin: 04/03/18 10:33 Dose: 75 mg Divalproex Sodium (Depakote Er) 250 mg PO [facility] Last Admin: 04/01/18 21:18 Dose: 250 mg Docusate Sodium (Colace) 100 mg PO DAILY [facility] Last Admin: 04/03/18 10:33 Dose: 100 mg Escitalopram Oxalate (Lexapro) 10 mg PO DAILY [facility] Last Admin: 04/02/18 10:32 Dose: 10 mg Heparin Sodium (Porcine) (Heparin) 5,000 units SC Q12 [facility] Last Admin: 04/03/18 10:34 Dose: 5,000 units Sodium Chloride (Sodium Chloride 0.9%) 1,000 mls @ 60 mls/hr IV .[id number] [facility] Last Admin: 04/03/18 10:36 Dose: Not Given Insulin Detemir (Levemir) 20 unit SC [facility] Last Admin: 04/02/18 22:01 Dose: 20 unit Insulin Human Regular (Novolin R) 0 unit SC Q4H [facility] Last Admin: 04/03/18 11:40 Dose: Not Given Lorazepam (Ativan) 1 mg PO QID PRN PRN Reason: Anxiety Last Admin: 03/26/18 22:12 Dose: 1 mg Mupirocin (Bactroban Ointment) 0 gm TOP BID [facility] Last Admin: 04/03/18 10:37 Dose: 1 applic Nystatin (Mycostatin Cream) 0 ea TOP TID [facility] Last Admin: 04/03/18 14:17 Dose: 1 applic Oxycodone HCl (Oxycodone Immediate Release Tab) 5 mg PO Q4H PRN PRN Reason: Pain, severe (8-10) Last Admin: 04/03/18 09:23 Dose: 5 mg Pregabalin (Lyrica) 50 mg PO TID [facility] Last Admin: 04/03/18 14:11 Dose: 50 mg Quetiapine Fumarate (Seroquel) 25 mg PO BID [facility] Last Admin: 04/02/18 18:20 Dose: Not Given Sitagliptin Phosphate (Januvia) 25 mg PO DAILY [facility] Last Admin: 04/03/18 10:33 Dose: 25 mg - Labs Labs: 04/03/18 06:24 04/03/18 06:24 PT 10.6 SECONDS (9.7-12.2) 04/03/18 06:24 INR 1.0 04/03/18 06:24 APTT 23 SECONDS (21-34) D 04/03/18 06:24 - Constitutional Appears: No Acute Distress - Head Exam Head Exam: NORMOCEPHALIC - Eye Exam Eye Exam: Normal appearance - ENT Exam ENT Exam: Mucous Membranes Moist - Respiratory Exam Respiratory Exam: NORMAL BREATHING PATTERN - Cardiovascular Exam Cardiovascular Exam: +S1, +S2 - GI/Abdominal Exam GI & Abdominal Exam: Soft - Extremities Exam Extremities Exam: absent: Pedal Edema, Tenderness - Neurological Exam Neurological Exam: Alert, Awake, Oriented x3 - Psychiatric Exam Psychiatric exam: Normal Mood - Skin Skin Exam: Dry, Intact, Warm Assessment and Plan - Assessment and Plan (Free Text) Assessment: 72F s/p fem-pop bypass POD1 Plan: D/c Chand PT eval Neurovascular checks Resume diet ASA & Plavix Knee immobilizer Encourage incentive spirometer D/w Dr. Carole Navas PGY3
[2018-04-03] MEDS: Insulin Detemir 100 units/ml Vial (Levemir) SC SCH (22:01)
[2018-04-04] MEDS: (Novolin R) Insulin Human Regular 100 units/ml vial SC SCH ×6 (00:03→20:21)
[2018-04-04 06:28] LABS: BASO % 0.2 % (0.0-2.0); EOS # 0.2 K/uL (0.0-0.7); EOS % 1.2 % (0.0-4.0); HEMOGLOBIN 13.1 g/dL (11.0-16.0); LYMPH % 21.4 % (20.0-40.0); MEAN CELL VOLUME 82.4 fL (81.0-99.0); MEAN CORPUSCULAR HEMOGLOBIN 27.2 pg (27.0-31.0); MEAN CORPUSCULAR HGB CONC 33.1 g/dL (33.0-37.0); MEAN PLATELET VOLUME 9.5 fL (7.2-11.7); MONO # 1.6 K/uL (0.0-0.8); NEUT # 9.4 K/uL (1.8-7.0); NEUT % 66.2 % (50.0-75.0); RBC 4.81 Mil/uL (3.80-5.20); RED CELL DISTRIBUTION WIDTH 15.7 % (11.5-14.5); WHITE BLOOD COUNT 14.2 K/uL (4.8-10.8)
[2018-04-04 06:44] LABS: ALB/GLOB RATIO 1.2 (1.0-2.1); ALBUMIN 3.1 g/dL (3.5-5.0); CALCIUM 8.6 mg/dl (8.6-10.4)
--- NOTE | 2018-04-04 09:30 | CP.PCM.PN ---
Subjective - Date & Time of Evaluation Date of Evaluation: 04/04/18 Time of Evaluation: 09:27 - Subjective Subjective: Alert, non new complaint creat decreased- 1.1- TAMEKA resolving BP controlled s/p 1 unit prbcs blood transfusion UO around 1600ml Objective - Vital Signs/Intake and Output Vital Signs (last 24 hours): Temp Pulse Resp BP Pulse Ox 98.9 F 73 20 152/75 H 96 04/04/18 08:00 04/04/18 08:00 04/04/18 08:00 04/04/18 08:00 04/04/18 08:00 Intake and Output: 04/04/18 04/04/18 06:59 18:59 Output Total 750 Balance -750 - Medications Medications: Current Medications Aspirin (Aspirin Chewable) 81 mg PO DAILY [facility] Last Admin: 04/04/18 09:27 Dose: 81 mg Clopidogrel Bisulfate (Plavix) 75 mg PO DAILY [facility] Last Admin: 04/04/18 09:27 Dose: 75 mg Divalproex Sodium (Depakote Er) 250 mg PO [facility] Last Admin: 04/01/18 21:18 Dose: 250 mg Docusate Sodium (Colace) 100 mg PO DAILY [facility] Last Admin: 04/04/18 09:27 Dose: 100 mg Escitalopram Oxalate (Lexapro) 10 mg PO DAILY [facility] Last Admin: 04/02/18 10:32 Dose: 10 mg Heparin Sodium (Porcine) (Heparin) 5,000 units SC Q12 [facility] Last Admin: 04/04/18 09:27 Dose: 5,000 units Sodium Chloride (Sodium Chloride 0.9%) 1,000 mls @ 60 mls/hr IV .[id number] [facility] Last Admin: 04/03/18 18:19 Dose: 60 mls/hr Insulin Detemir (Levemir) 20 unit SC [facility] Last Admin: 04/03/18 22:01 Dose: 20 unit Insulin Human Regular (Novolin R) 0 unit SC Q4H [facility] Last Admin: 04/04/18 08:00 Dose: Not Given Lorazepam (Ativan) 1 mg PO QID PRN PRN Reason: Anxiety Last Admin: 04/03/18 17:57 Dose: 1 mg Mupirocin (Bactroban Ointment) 0 gm TOP BID [facility] Last Admin: 08/03/18 17:59 Dose: 1 applic Nystatin (Mycostatin Cream) 0 ea TOP TID [facility] Last Admin: 04/03/18 18:00 Dose: 1 applic Oxycodone HCl (Oxycodone Immediate Release Tab) 5 mg PO Q4H PRN PRN Reason: Pain, severe (8-10) Last Admin: 04/03/18 09:23 Dose: 5 mg Pregabalin (Lyrica) 50 mg PO TID [facility] Last Admin: 04/04/18 09:27 Dose: 50 mg Quetiapine Fumarate (Seroquel) 25 mg PO BID [facility] Last Admin: 04/02/18 18:20 Dose: Not Given Sitagliptin Phosphate (Januvia) 25 mg PO DAILY [facility] Last Admin: 04/04/18 09:26 Dose: 25 mg - Labs Labs: 04/04/18 06:23 04/04/18 06:22 PT 10.6 SECONDS (9.7-12.2) 04/03/18 06:24 INR 1.0 04/03/18 06:24 APTT 32 SECONDS (21-34) D 04/04/18 07:50 - Constitutional Appears: No Acute Distress, Chronically Ill - Head Exam Head Exam: ATRAUMATIC, NORMAL INSPECTION - Eye Exam Eye Exam: EOMI, Normal appearance - Neck Exam Neck Exam: Normal Inspection. absent: Tenderness - Respiratory Exam Respiratory Exam: Clear to Ausculation Bilateral, NORMAL BREATHING PATTERN - Cardiovascular Exam Cardiovascular Exam: REGULAR RHYTHM, +S1 - GI/Abdominal Exam GI & Abdominal Exam: Soft. absent: Tenderness - Extremities Exam Extremities Exam: Pedal Edema, Tenderness - Neurological Exam Neurological Exam: Awake, CN II-XII Intact - Skin Skin Exam: Dry, Warm Assessment and Plan (1) DM type 2 (diabetes mellitus, type 2) Status: Acute (2) CKD (chronic kidney disease) stage 3, GFR 30-59 ml/min Status: Acute (3) Peripheral vascular disease Status: Acute (4) Bipolar disorder Status: Acute - Assessment and Plan (Free Text) Plan: continue to monitor lytes, renal function TAMEKA likely due to OBEY I use- avois these agents Continue mild fluid hydration
[2018-04-04] MEDS: Nystatin 100,000 Units/gm Cream(15 gm) TOP SCH ×3 (09:39→18:22)
--- NOTE | 2018-04-04 10:06 | CP.PCM.PN ---
Subjective - Date & Time of Evaluation Date of Evaluation: 04/01/18 Time of Evaluation: 08:10 - Subjective Subjective: no chest pain Awaiting Fem-pop BUN/Creat increased to 46/1.4 Objective - Vital Signs/Intake and Output Vital Signs (last 24 hours): Temp Pulse Resp BP Pulse Ox 98.9 F 73 20 152/75 H 96 04/04/18 08:00 04/04/18 08:00 04/04/18 08:00 04/04/18 08:00 04/04/18 08:00 Intake and Output: 04/04/18 04/04/18 06:59 18:59 Output Total 750 Balance -750 - Medications Medications: Current Medications Aspirin (Aspirin Chewable) 81 mg PO DAILY [facility] Last Admin: 04/04/18 09:27 Dose: 81 mg Clopidogrel Bisulfate (Plavix) 75 mg PO DAILY [facility] Last Admin: 04/04/18 09:27 Dose: 75 mg Divalproex Sodium (Depakote Er) 250 mg PO [facility] Last Admin: 04/01/18 21:18 Dose: 250 mg Docusate Sodium (Colace) 100 mg PO DAILY [facility] Last Admin: 04/04/18 09:27 Dose: 100 mg Escitalopram Oxalate (Lexapro) 10 mg PO DAILY [facility] Last Admin: 04/02/18 10:32 Dose: 10 mg Heparin Sodium (Porcine) (Heparin) 5,000 units SC Q12 [facility] Last Admin: 04/04/18 09:27 Dose: 5,000 units Sodium Chloride (Sodium Chloride 0.9%) 1,000 mls @ 60 mls/hr IV .[id number] [facility] Last Admin: 04/03/18 18:19 Dose: 60 mls/hr Insulin Detemir (Levemir) 20 unit SC [facility] Last Admin: 04/03/18 22:01 Dose: 20 unit Insulin Human Regular (Novolin R) 0 unit SC Q4H [facility] Last Admin: 04/04/18 08:00 Dose: Not Given Lorazepam (Ativan) 1 mg PO QID PRN PRN Reason: Anxiety Last Admin: 04/03/18 17:57 Dose: 1 mg Mupirocin (Bactroban Ointment) 0 gm TOP BID [facility] Last Admin: 04/04/18 09:39 Dose: 1 applic Nystatin (Mycostatin Cream) 0 ea TOP TID [facility] Last Admin: 04/04/18 09:39 Dose: 1 applic Oxycodone HCl (Oxycodone Immediate Release Tab) 5 mg PO Q4H PRN PRN Reason: Pain, severe (8-10) Last Admin: 04/03/18 09:23 Dose: 5 mg Pregabalin (Lyrica) 50 mg PO TID [facility] Last Admin: 04/04/18 09:27 Dose: 50 mg Quetiapine Fumarate (Seroquel) 25 mg PO BID [facility] Last Admin: 04/02/18 18:20 Dose: Not Given Sitagliptin Phosphate (Januvia) 25 mg PO DAILY [facility] Last Admin: 04/04/18 09:26 Dose: 25 mg - Labs Labs: 04/04/18 06:23 04/04/18 06:22 PT 10.6 SECONDS (9.7-12.2) 04/03/18 06:24 INR 1.0 04/03/18 06:24 APTT 32 SECONDS (21-34) D 04/04/18 07:50 - Constitutional Appears: Non-toxic - Head Exam Head Exam: NORMAL INSPECTION - Eye Exam Eye Exam: absent: Scleral icterus - ENT Exam ENT Exam: Mucous Membranes Moist - Neck Exam Neck Exam: Full ROM - Respiratory Exam Respiratory Exam: Clear to Ausculation Bilateral - Cardiovascular Exam Cardiovascular Exam: REGULAR RHYTHM - GI/Abdominal Exam GI & Abdominal Exam: Soft - Extremities Exam Extremities Exam: absent: Pedal Edema Additional comments: s/p BKA Assessment and Plan - Assessment and Plan (Free Text) Assessment: CAD PVD CKD TAMEKA T2dm Plan: Renal eval Awaiting fem-pop Cont meds
--- NOTE | 2018-04-04 10:16 | CP.PCM.PN ---
Subjective - Date & Time of Evaluation Date of Evaluation: 04/02/18 Time of Evaluation: 08:00 - Subjective Subjective: stable cardiac carter scheduled for fem-pop Creat 1.5- renal on case Objective - Vital Signs/Intake and Output Vital Signs (last 24 hours): Temp Pulse Resp BP Pulse Ox 98.9 F 73 20 152/75 H 96 04/04/18 08:00 04/04/18 08:00 04/04/18 08:00 04/04/18 08:00 04/04/18 08:00 Intake and Output: 04/04/18 04/04/18 06:59 18:59 Output Total 750 Balance -750 - Medications Medications: Current Medications Aspirin (Aspirin Chewable) 81 mg PO DAILY [facility] Last Admin: 04/04/18 09:27 Dose: 81 mg Clopidogrel Bisulfate (Plavix) 75 mg PO DAILY [facility] Last Admin: 04/04/18 09:27 Dose: 75 mg Divalproex Sodium (Depakote Er) 250 mg PO [facility] Last Admin: 04/01/18 21:18 Dose: 250 mg Docusate Sodium (Colace) 100 mg PO DAILY [facility] Last Admin: 04/04/18 09:27 Dose: 100 mg Escitalopram Oxalate (Lexapro) 10 mg PO DAILY [facility] Last Admin: 04/02/18 10:32 Dose: 10 mg Heparin Sodium (Porcine) (Heparin) 5,000 units SC Q12 [facility] Last Admin: 04/04/18 09:27 Dose: 5,000 units Sodium Chloride (Sodium Chloride 0.9%) 1,000 mls @ 60 mls/hr IV .[id number] [facility] Last Admin: 04/03/18 18:19 Dose: 60 mls/hr Insulin Detemir (Levemir) 20 unit SC [facility] Last Admin: 04/03/18 22:01 Dose: 20 unit Insulin Human Regular (Novolin R) 0 unit SC Q4H [facility] Last Admin: 04/04/18 08:00 Dose: Not Given Lorazepam (Ativan) 1 mg PO QID PRN PRN Reason: Anxiety Last Admin: 04/03/18 17:57 Dose: 1 mg Mupirocin (Bactroban Ointment) 0 gm TOP BID [facility] Last Admin: 04/04/18 09:39 Dose: 1 applic Nystatin (Mycostatin Cream) 0 ea TOP TID [facility] Last Admin: 04/04/18 09:39 Dose: 1 applic Oxycodone HCl (Oxycodone Immediate Release Tab) 5 mg PO Q4H PRN PRN Reason: Pain, severe (8-10) Last Admin: 04/03/18 09:23 Dose: 5 mg Pregabalin (Lyrica) 50 mg PO TID [facility] Last Admin: 04/04/18 09:27 Dose: 50 mg Quetiapine Fumarate (Seroquel) 25 mg PO BID [facility] Last Admin: 04/02/18 18:20 Dose: Not Given Sitagliptin Phosphate (Januvia) 25 mg PO DAILY [facility] Last Admin: 04/04/18 09:26 Dose: 25 mg - Labs Labs: 04/04/18 06:23 04/04/18 06:22 PT 10.6 SECONDS (9.7-12.2) 04/03/18 06:24 INR 1.0 04/03/18 06:24 APTT 32 SECONDS (21-34) D 04/04/18 07:50 - Constitutional Appears: Non-toxic - Eye Exam Eye Exam: absent: Scleral icterus - Neck Exam Neck Exam: Full ROM. absent: Lymphadenopathy - Respiratory Exam Respiratory Exam: Clear to Ausculation Bilateral - Cardiovascular Exam Cardiovascular Exam: REGULAR RHYTHM - GI/Abdominal Exam GI & Abdominal Exam: Soft - Extremities Exam Extremities Exam: absent: Pedal Edema Additional comments: s/p BKA Assessment and Plan - Assessment and Plan (Free Text) Assessment: PVD CAD CKD/TAMEKA T2dm Plan: Cleared for fempop from surgical standpoint
--- NOTE | 2018-04-04 10:23 | CP.PCM.PN ---
Subjective - Date & Time of Evaluation Date of Evaluation: 04/03/18 Time of Evaluation: 08:35 - Subjective Subjective: s/p fempop +leucocytosis no chest pain no sob Objective - Vital Signs/Intake and Output Vital Signs (last 24 hours): Temp Pulse Resp BP Pulse Ox 98.9 F 73 20 152/75 H 96 04/04/18 08:00 04/04/18 08:00 04/04/18 08:00 04/04/18 08:00 04/04/18 08:00 Intake and Output: 04/04/18 04/04/18 06:59 18:59 Output Total 750 Balance -750 - Medications Medications: Current Medications Aspirin (Aspirin Chewable) 81 mg PO DAILY [facility] Last Admin: 04/04/18 09:27 Dose: 81 mg Clopidogrel Bisulfate (Plavix) 75 mg PO DAILY [facility] Last Admin: 04/04/18 09:27 Dose: 75 mg Divalproex Sodium (Depakote Er) 250 mg PO [facility] Last Admin: 04/01/18 21:18 Dose: 250 mg Docusate Sodium (Colace) 100 mg PO DAILY [facility] Last Admin: 04/04/18 09:27 Dose: 100 mg Escitalopram Oxalate (Lexapro) 10 mg PO DAILY [facility] Last Admin: 04/02/18 10:32 Dose: 10 mg Heparin Sodium (Porcine) (Heparin) 5,000 units SC Q12 [facility] Last Admin: 04/04/18 09:27 Dose: 5,000 units Sodium Chloride (Sodium Chloride 0.9%) 1,000 mls @ 60 mls/hr IV .[id number] [facility] Last Admin: 04/03/18 18:19 Dose: 60 mls/hr Insulin Detemir (Levemir) 20 unit SC [facility] Last Admin: 04/03/18 22:01 Dose: 20 unit Insulin Human Regular (Novolin R) 0 unit SC Q4H [facility] Last Admin: 04/04/18 08:00 Dose: Not Given Lorazepam (Ativan) 1 mg PO QID PRN PRN Reason: Anxiety Last Admin: 04/03/18 17:57 Dose: 1 mg Mupirocin (Bactroban Ointment) 0 gm TOP BID [facility] Last Admin: 04/04/18 09:39 Dose: 1 applic Nystatin (Mycostatin Cream) 0 ea TOP TID [facility] Last Admin: 04/04/18 09:39 Dose: 1 applic Oxycodone HCl (Oxycodone Immediate Release Tab) 5 mg PO Q4H PRN PRN Reason: Pain, severe (8-10) Last Admin: 04/03/18 09:23 Dose: 5 mg Pregabalin (Lyrica) 50 mg PO TID [facility] Last Admin: 04/04/18 09:27 Dose: 50 mg Quetiapine Fumarate (Seroquel) 25 mg PO BID [facility] Last Admin: 04/02/18 18:20 Dose: Not Given Sitagliptin Phosphate (Januvia) 25 mg PO DAILY [facility] Last Admin: 04/04/18 09:26 Dose: 25 mg - Labs Labs: 04/04/18 06:23 04/04/18 06:22 PT 10.6 SECONDS (9.7-12.2) 04/03/18 06:24 INR 1.0 04/03/18 06:24 APTT 32 SECONDS (21-34) D 04/04/18 07:50 - Constitutional Appears: Non-toxic - Eye Exam Eye Exam: absent: Scleral icterus - Neck Exam Neck Exam: Full ROM - Respiratory Exam Respiratory Exam: Clear to Ausculation Bilateral - Cardiovascular Exam Cardiovascular Exam: REGULAR RHYTHM - GI/Abdominal Exam GI & Abdominal Exam: Soft - Extremities Exam Extremities Exam: absent: Pedal Edema Additional comments: rt BKA - Neurological Exam Neurological Exam: Alert - Skin Skin Exam: absent: Rash Assessment and Plan - Assessment and Plan (Free Text) Assessment: s/p fempop PVD CAD TAMEKA/CKD T2dm Plan: Cont meds Physical therapy
[2018-04-04] MEDS: Sodium Chloride 0.9% 1,000 ML IV SCH ×2 (11:35→17:23)
--- NOTE | 2018-04-04 12:44 | PN ---
Copied To: Haja Pink DO Attending MD: Haja Pink DO DATE: 04/04/2018 SUBJECTIVE: I saw her in the intensive care unit She is resting comfortably in bed. She slept fairly well. No overnight issues. She is being seen by Infectious Disease, Surgery, Renal, Cardiology. She is in good spirits though this morning. We are checking her labs. PHYSICAL EXAMINATION: VITAL SIGNS: Temperature is 98.8, pulse 80, blood pressure 130/59, respiratory rate 20, O2 sat on room air 96%. HEENT: Head is atraumatic, normocephalic. HEART: Regular rate. LUNGS: Decreased breath sounds but clear. ABDOMEN: Soft. 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 Lam. She is currently on aspirin, Ativan, Bactroban, Colace, Depakote, heparin, Januvia, Levemir, Lexapro, Lyrica, Mycostatin, Novolin, oxycodone, Plavix, Seroquel, and IV fluids. She has a 14.2 white count. It is coming down from 26. Hemoglobin 13.1, hematocrit 39.7, platelets 142,000. She has a sodium 138, potassium 3.8, BUN 30, creatinine 1.1, GFR is 49, sugar is 57, calcium is 8.6. Total bilirubin is 0.6, AST is 27, ALT is 19, alkaline phosphatase 68, total protein is 5.6. Procalcitonin is low at 0.1. I understand she would be transferred today which is good. Physical therapy was ordered. We will need to check her labs. Continue her postop care until we can get her back to [facility] as permanent resident. She is status post procedure of the left leg for peripheral artery disease. Haja Pink DO MTDD
--- NOTE | 2018-04-04 19:06 | CP.PCM.PN ---
Subjective - Date & Time of Evaluation Date of Evaluation: 04/04/18 Time of Evaluation: 09:00 - Subjective Subjective: improving s/p fem pop foot warm redness less no fever Objective - Vital Signs/Intake and Output Vital Signs (last 24 hours): Temp Pulse Resp BP Pulse Ox 98.3 F 81 20 130/53 L 98 04/04/18 16:00 04/04/18 16:00 04/04/18 16:00 04/04/18 16:00 04/04/18 16:00 Intake and Output: 04/04/18 04/05/18 18:59 06:59 Intake Total 660 Balance 660 - Medications Medications: Current Medications Aspirin (Aspirin Chewable) 81 mg PO DAILY [facility] Last Admin: 04/04/18 09:27 Dose: 81 mg Clopidogrel Bisulfate (Plavix) 75 mg PO DAILY [facility] Last Admin: 04/04/18 09:27 Dose: 75 mg Divalproex Sodium (Depakote Er) 250 mg PO [facility] Last Admin: 04/01/18 21:18 Dose: 250 mg Docusate Sodium (Colace) 100 mg PO DAILY [facility] Last Admin: 04/04/18 09:27 Dose: 100 mg Escitalopram Oxalate (Lexapro) 10 mg PO DAILY [facility] Last Admin: 04/02/18 10:32 Dose: 10 mg Famotidine (Pepcid) 20 mg PO DAILY [facility] Last Admin: 04/04/18 13:03 Dose: 20 mg Heparin Sodium (Porcine) (Heparin) 5,000 units SC Q12 [facility] Last Admin: 04/04/18 09:27 Dose: 5,000 units Sodium Chloride (Sodium Chloride 0.9%) 1,000 mls @ 60 mls/hr IV .[id number] [facility] Last Admin: 04/04/18 17:23 Dose: Not Given Insulin Detemir (Levemir) 20 unit SC [facility] Last Admin: 04/03/18 22:01 Dose: 20 unit Insulin Human Regular (Novolin R) 0 unit SC Q4H [facility] Last Admin: 04/04/18 16:39 Dose: 4 units Lorazepam (Ativan) 1 mg PO QID PRN PRN Reason: Anxiety Last Admin: 04/03/18 17:57 Dose: 1 mg Mupirocin (Bactroban Ointment) 0 gm TOP BID [facility] Last Admin: 04/04/18 18:22 Dose: 1 applic Nystatin (Mycostatin Cream) 0 ea TOP TID [facility] Last Admin: 04/04/18 18:22 Dose: 1 applic Oxycodone HCl (Oxycodone Immediate Release Tab) 5 mg PO Q4H PRN PRN Reason: Pain, severe (8-10) Last Admin: 04/03/18 09:23 Dose: 5 mg Pregabalin (Lyrica) 50 mg PO TID [facility] Last Admin: 04/04/18 18:22 Dose: 50 mg Quetiapine Fumarate (Seroquel) 25 mg PO BID [facility] Last Admin: 04/02/18 18:20 Dose: Not Given Sitagliptin Phosphate (Januvia) 25 mg PO DAILY [facility] Last Admin: 04/04/18 09:26 Dose: 25 mg - Labs Labs: 04/04/18 06:23 04/04/18 06:22 PT 10.6 SECONDS (9.7-12.2) 04/03/18 06:24 INR 1.0 04/03/18 06:24 APTT 32 SECONDS (21-34) D 04/04/18 07:50 - Constitutional Appears: Non-toxic, Cachectic, Chronically Ill - Head Exam Head Exam: NORMOCEPHALIC - Eye Exam Eye Exam: PERRL - ENT Exam ENT Exam: Normal External Ear Exam - Neck Exam Neck Exam: absent: Lymphadenopathy - Respiratory Exam Respiratory Exam: Decreased Breath Sounds - Cardiovascular Exam Cardiovascular Exam: REGULAR RHYTHM - GI/Abdominal Exam GI & Abdominal Exam: Distended, Soft - Rectal Exam Rectal Exam: Deferred - Exam Exam: NORMAL INSPECTION Assessment and Plan (1) CKD (chronic kidney disease) stage 3, GFR 30-59 ml/min Status: Acute (2) DM type 2 (diabetes mellitus, type 2) Status: Acute (3) Peripheral vascular disease Status: Acute (4) Altered mental status Status: Acute (5) Bipolar disorder Status: Acute (6) Cellulitis, leg Status: Acute - Assessment and Plan (Free Text) Assessment: cont rx as ordered
[2018-04-04] MEDS: Insulin Detemir 100 units/ml Vial (Levemir) SC SCH (21:18)
[2018-04-04] MEDS: oxyCODONE 5 mg Immediate Release Tab PO PRN (21:33)
[2018-04-05] MEDS: (Novolin R) Insulin Human Regular 100 units/ml vial SC SCH ×5 (00:09→21:44)
--- NOTE | 2018-04-05 00:25 | CP.PCM.PN ---
Subjective - Date & Time of Evaluation Date of Evaluation: 04/04/18 Time of Evaluation: 07:00 - Subjective Subjective: VASCULAR SURGERY PROGRESS NOTE FOR DR. VILLAGOMEZ Patient seen and examined at bedside in the ICU. She reports pain in her left leg. Denies nausea or vomiting. Tolerating diet. Objective - Vital Signs/Intake and Output Vital Signs (last 24 hours): Temp Pulse Resp BP Pulse Ox 98.8 F 84 18 114/61 98 04/04/18 17:16 04/04/18 17:16 04/04/18 17:16 04/04/18 17:16 04/04/18 17:16 Intake and Output: 04/04/18 04/05/18 18:59 06:59 Intake Total 1440 Output Total 1200 Balance 240 - Medications Medications: Current Medications Aspirin (Aspirin Chewable) 81 mg PO DAILY [facility] Last Admin: 04/04/18 09:27 Dose: 81 mg Clopidogrel Bisulfate (Plavix) 75 mg PO DAILY [facility] Last Admin: 04/04/18 09:27 Dose: 75 mg Divalproex Sodium (Depakote Er) 250 mg PO [facility] Last Admin: 04/01/18 21:18 Dose: 250 mg Docusate Sodium (Colace) 100 mg PO DAILY [facility] Last Admin: 04/04/18 09:27 Dose: 100 mg Escitalopram Oxalate (Lexapro) 10 mg PO DAILY [facility] Last Admin: 04/02/18 10:32 Dose: 10 mg Famotidine (Pepcid) 20 mg PO DAILY [facility] Last Admin: 04/04/18 13:03 Dose: 20 mg Heparin Sodium (Porcine) (Heparin) 5,000 units SC Q12 [facility] Last Admin: 04/04/18 21:17 Dose: 5,000 units Sodium Chloride (Sodium Chloride 0.9%) 1,000 mls @ 60 mls/hr IV .[id number] [facility] Last Admin: 04/04/18 17:23 Dose: Not Given Insulin Detemir (Levemir) 20 unit SC [facility] Last Admin: 04/04/18 21:18 Dose: 20 unit Insulin Human Regular (Novolin R) 0 unit SC Q4H [facility] Last Admin: 04/05/18 00:09 Dose: 4 units Lorazepam (Ativan) 1 mg PO QID PRN PRN Reason: Anxiety Last Admin: 04/03/18 17:57 Dose: 1 mg Mupirocin (Bactroban Ointment) 0 gm TOP BID [facility] Last Admin: 04/04/18 18:22 Dose: 1 applic Nystatin (Mycostatin Cream) 0 ea TOP TID [facility] Last Admin: 04/04/18 18:22 Dose: 1 applic Oxycodone HCl (Oxycodone Immediate Release Tab) 5 mg PO Q4H PRN PRN Reason: Pain, severe (8-10) Last Admin: 04/04/18 21:33 Dose: 5 mg Pregabalin (Lyrica) 50 mg PO TID [facility] Last Admin: 04/04/18 18:22 Dose: 50 mg Quetiapine Fumarate (Seroquel) 25 mg PO BID [facility] Last Admin: 04/02/18 18:20 Dose: Not Given Sitagliptin Phosphate (Januvia) 25 mg PO DAILY [facility] Last Admin: 04/04/18 09:26 Dose: 25 mg - Labs Labs: 04/04/18 06:23 04/04/18 06:22 PT 10.6 SECONDS (9.7-12.2) 04/03/18 06:24 INR 1.0 04/03/18 06:24 APTT 32 SECONDS (21-34) D 04/04/18 07:50 - Constitutional Appears: Non-toxic, No Acute Distress - Respiratory Exam Respiratory Exam: NORMAL BREATHING PATTERN. absent: Respiratory Distress - Cardiovascular Exam Cardiovascular Exam: +S1, +S2 - GI/Abdominal Exam GI & Abdominal Exam: Soft. absent: Tenderness - Extremities Exam Additional comments: Doppler signals to DP and PT foot warm dressing clean/dry/intact Assessment and Plan - Assessment and Plan (Free Text) Assessment: 72F s/p fem-pop bypass POD2 Plan: PT eval Neurovascular checks Continue diet ASA & Plavix Encourage incentive spirometer and ambulation May be transferred to floor D/w Dr. Carole Heck PGY-4
[2018-04-05] MEDS: Sodium Chloride 0.9% 1,000 ML IV SCH ×2 (04:08→10:19)
[2018-04-05 08:57] LABS: HEMOGLOBIN 12.2 g/dL (11.0-16.0); MEAN CELL VOLUME 82.7 fL (81.0-99.0); MEAN CORPUSCULAR HEMOGLOBIN 27.6 pg (27.0-31.0); MEAN CORPUSCULAR HGB CONC 33.3 g/dL (33.0-37.0); MEAN PLATELET VOLUME 9.6 fL (7.2-11.7); RBC 4.43 Mil/uL (3.80-5.20); RED CELL DISTRIBUTION WIDTH 15.7 % (11.5-14.5); WHITE BLOOD COUNT 12.8 K/uL (4.8-10.8)
[2018-04-05 09:31] LABS: ALB/GLOB RATIO 1.2 (1.0-2.1); CALCIUM 8.6 mg/dl (8.6-10.4)
[2018-04-05] MEDS: Nystatin 100,000 Units/gm Cream(15 gm) TOP SCH ×3 (10:18→17:26)
--- NOTE | 2018-04-05 13:55 | CP.PCM.PN ---
Subjective - Date & Time of Evaluation Date of Evaluation: 04/05/18 Time of Evaluation: 07:10 - Subjective Subjective: Vascular Surgery Progress note for Dr. Lam Patient seen and examined this am at bedside. No acute events overnight per nursing. Patient endorses pain in her left leg with intact motor and sensation. She otherwise denies f/c/n/v/ changes in stool or cold feet. She is tolerating her diet. Objective - Vital Signs/Intake and Output Vital Signs (last 24 hours): Temp Pulse Resp BP Pulse Ox 99.9 F H 90 18 145/72 97 04/05/18 07:30 04/05/18 13:46 04/05/18 07:30 04/05/18 13:46 04/05/18 13:46 Intake and Output: 04/05/18 04/05/18 06:59 18:59 Intake Total 1080 Output Total 1100 Balance -20 - Medications Medications: Current Medications Aspirin (Aspirin Chewable) 81 mg PO DAILY [facility] Last Admin: 04/05/18 10:17 Dose: 81 mg Clopidogrel Bisulfate (Plavix) 75 mg PO DAILY [facility] Last Admin: 04/05/18 10:17 Dose: 75 mg Divalproex Sodium (Depakote Er) 250 mg PO [facility] Last Admin: 04/01/18 21:18 Dose: 250 mg Docusate Sodium (Colace) 100 mg PO DAILY [facility] Last Admin: 04/05/18 10:17 Dose: 100 mg Escitalopram Oxalate (Lexapro) 10 mg PO DAILY [facility] Last Admin: 04/02/18 10:32 Dose: 10 mg Famotidine (Pepcid) 20 mg PO DAILY [facility] Last Admin: 04/05/18 10:17 Dose: 20 mg Heparin Sodium (Porcine) (Heparin) 5,000 units SC Q12 [facility] Last Admin: 04/05/18 10:17 Dose: 5,000 units Sodium Chloride (Sodium Chloride 0.9%) 1,000 mls @ 60 mls/hr IV .[id number] [facility] Last Admin: 04/05/18 10:19 Dose: Not Given Insulin Detemir (Levemir) 20 unit SC HS [facility] Last Admin: 04/04/18 21:18 Dose: 20 unit Insulin Human Regular (Novolin R) 0 unit SC [facility] Last Admin: 04/05/18 12:26 Dose: 13 unit Lorazepam (Ativan) 1 mg PO QID PRN PRN Reason: Anxiety Last Admin: 04/03/18 17:57 Dose: 1 mg Mupirocin (Bactroban Ointment) 0 gm TOP BID [facility] Last Admin: 04/05/18 10:18 Dose: 1 applic Nystatin (Mycostatin Cream) 0 ea TOP TID [facility] Last Admin: 04/05/18 13:48 Dose: Not Given Pregabalin (Lyrica) 50 mg PO TID [facility] Last Admin: 04/05/18 13:43 Dose: 50 mg Quetiapine Fumarate (Seroquel) 25 mg PO BID [facility] Last Admin: 04/02/18 18:20 Dose: Not Given Sitagliptin Phosphate (Januvia) 25 mg PO DAILY [facility] Last Admin: 04/05/18 10:17 Dose: 25 mg - Labs Labs: 04/05/18 08:41 04/05/18 08:41 PT 10.6 SECONDS (9.7-12.2) 04/03/18 06:24 INR 1.0 04/03/18 06:24 APTT 32 SECONDS (21-34) 04/05/18 08:41 - Constitutional Appears: Well, Non-toxic, No Acute Distress, Unkempt - Head Exam Head Exam: ATRAUMATIC, NORMOCEPHALIC - ENT Exam ENT Exam: Mucous Membranes Moist - Respiratory Exam Respiratory Exam: NORMAL BREATHING PATTERN - Cardiovascular Exam Cardiovascular Exam: +S1, +S2 - GI/Abdominal Exam GI & Abdominal Exam: Soft. absent: Distended, Guarding, Tenderness - Extremities Exam Additional comments: PT and DP pulses dopplerable on left - Neurological Exam Neurological Exam: Alert, Awake, Oriented x3 - Psychiatric Exam Psychiatric exam: Normal Affect, Normal Mood - Skin Skin Exam: Dry, Intact, Normal Color, Warm Additional comments: dressing in place, air boots in place Assessment and Plan - Assessment and Plan (Free Text) Assessment: 72 yr old female POD 3 from fem pop bypass, recovering well pulses dopplerable foot warm Plan: continue neurovascular checks, DP and PT pulses dopplerable today Continue diet as tolerated continue ASA & Plavix Encourage incentive spirometer and ambulation will d/w Dr. Carole Dover PGY 1
[2018-04-05 16:47] VITALS: RESP 20
--- NOTE | 2018-04-05 18:04 | PN ---
Copied To: Haja Pink DO Attending MD: Haja Pink DO DATE: 04/05/2018 SUBJECTIVE: I saw her resting comfortably in bed. She is feeding herself lunch, in good spirits, not much pain. She wants to go back to [facility]. Going to be okay from surgery. She is smiling. The pain is better. PHYSICAL EXAMINATION: VITAL SIGNS: She has a 99.9 temp, little high; 80 pulse; 147/71 blood pressure; 18 respiratory rate; 95% O2 saturation on room air. HEENT: Head is atraumatic, normocephalic. Throat is moist. NECK: Supple. HEART: Regular rate. LUNGS: Decreased breath sounds. She is using incentive spirometry, which is good. Clear to auscultation. No wheezes or rhonchi. No rales. ABDOMEN: Soft, nontender. Positive bowel sounds. EXTREMITIES: She has a right BKA. The left leg had and less pain. MEDICATIONS: She is currently on aspirin, Ativan, Bactroban cream, Colace, Depakote, heparin, Januvia, Levemir, Lexapro, Lyrica, Mycostatin, and Novolin. We are going to discontinue the OxyContin which she is not using it, Pepcid, Plavix, Seroquel, and IV fluids. LABORATORY DATA: She has a 138 sodium, potassium 3.7, BUN is 22 and better, creatinine 1.1, GFR is 49, sugar is 168, calcium is 8.6, total bili is 0.4, AST is 19, ALT is 17, alk phos 83, total protein is 5.5. White count is still elevated but coming down to 12.8, we will see what tomorrow brings. She has a 12.2 hemoglobin, 36.6 hematocrit, and 148 platelets. ASSESSMENT AND PLAN: For the most part, she is definitely improving. I will put a word out for Surgery, let me know when I could send her back to [facility] where she is a permanent resident. I will order lab for tomorrow watching the white count and kidney function. She is eating and drinking better, less pain. We will stop the pain meds and hopefully tomorrow we will get her back to [facility]. She is status post procedure with Dr. Lam on the left leg, peripheral arterial disease. Haja Pink DO [facility]ITAL[facility]lo
--- NOTE | 2018-04-05 21:16 | CP.PCM.PN ---
Subjective - Date & Time of Evaluation Date of Evaluation: 04/05/18 Time of Evaluation: 21:12 - Subjective Subjective: improving no sob no chest pain s/p fempop Objective - Vital Signs/Intake and Output Vital Signs (last 24 hours): Temp Pulse Resp BP Pulse Ox 99.1 F 86 20 139/67 96 04/05/18 15:00 04/05/18 15:00 04/05/18 15:00 04/05/18 15:00 04/05/18 15:00 Intake and Output: 04/05/18 04/06/18 18:59 06:59 Intake Total 1240 Balance 1240 - Medications Medications: Current Medications Aspirin (Aspirin Chewable) 81 mg PO DAILY [facility] Last Admin: 04/05/18 10:17 Dose: 81 mg Clopidogrel Bisulfate (Plavix) 75 mg PO DAILY [facility] Last Admin: 04/05/18 10:17 Dose: 75 mg Divalproex Sodium (Depakote Er) 250 mg PO [facility] Last Admin: 04/01/18 21:18 Dose: 250 mg Docusate Sodium (Colace) 100 mg PO DAILY [facility] Last Admin: 04/05/18 10:17 Dose: 100 mg Escitalopram Oxalate (Lexapro) 10 mg PO DAILY [facility] Last Admin: 04/02/18 10:32 Dose: 10 mg Famotidine (Pepcid) 20 mg PO DAILY [facility] Last Admin: 04/05/18 10:17 Dose: 20 mg Heparin Sodium (Porcine) (Heparin) 5,000 units SC Q12 [facility] Last Admin: 04/05/18 10:17 Dose: 5,000 units Sodium Chloride (Sodium Chloride 0.9%) 1,000 mls @ 60 mls/hr IV .[id number] [facility] Last Admin: 04/05/18 10:19 Dose: Not Given Insulin Detemir (Levemir) 20 unit SC HS [facility] Last Admin: 04/04/18 21:18 Dose: 20 unit Insulin Human Regular (Novolin R) 0 unit SC ACHS [facility] Last Admin: 04/05/18 17:18 Dose: Not Given Lorazepam (Ativan) 1 mg PO QID PRN PRN Reason: Anxiety Last Admin: 04/03/18 17:57 Dose: 1 mg Mupirocin (Bactroban Ointment) 0 gm TOP BID [facility] Last Admin: 04/05/18 17:26 Dose: 1 applic Nystatin (Mycostatin Cream) 0 ea TOP TID [facility] Last Admin: 04/05/18 17:26 Dose: Not Given Pregabalin (Lyrica) 50 mg PO TID [facility] Last Admin: 04/05/18 17:25 Dose: 50 mg Quetiapine Fumarate (Seroquel) 25 mg PO BID [facility] Last Admin: 04/02/18 18:20 Dose: Not Given Sitagliptin Phosphate (Januvia) 25 mg PO DAILY [facility] Last Admin: 04/05/18 10:17 Dose: 25 mg - Labs Labs: 04/05/18 08:41 04/05/18 08:41 PT 10.6 SECONDS (9.7-12.2) 04/03/18 06:24 INR 1.0 04/03/18 06:24 APTT 32 SECONDS (21-34) 04/05/18 08:41 - Constitutional Appears: Non-toxic - Head Exam Head Exam: NORMAL INSPECTION - Eye Exam Eye Exam: absent: Scleral icterus - ENT Exam ENT Exam: Mucous Membranes Moist - Neck Exam Neck Exam: Full ROM - Respiratory Exam Respiratory Exam: Clear to Ausculation Bilateral - Cardiovascular Exam Cardiovascular Exam: REGULAR RHYTHM - Extremities Exam Extremities Exam: absent: Pedal Edema Additional comments: rt BKA by hx - Neurological Exam Neurological Exam: Alert, Oriented x3 Assessment and Plan - Assessment and Plan (Free Text) Assessment: PVD ACS CKD T2dm Plan: Cont meds
--- NOTE | 2018-04-05 21:20 | CP.PCM.PN ---
Subjective - Date & Time of Evaluation Date of Evaluation: 04/04/18 Time of Evaluation: 08:35 - Subjective Subjective: improving left foot warm Creat down to 1.1 Objective - Vital Signs/Intake and Output Vital Signs (last 24 hours): Temp Pulse Resp BP Pulse Ox 99.1 F 86 20 139/67 96 04/05/18 15:00 04/05/18 15:00 04/05/18 15:00 04/05/18 15:00 04/05/18 15:00 Intake and Output: 04/05/18 04/06/18 18:59 06:59 Intake Total 1240 Balance 1240 - Medications Medications: Current Medications Aspirin (Aspirin Chewable) 81 mg PO DAILY [facility] Last Admin: 04/05/18 10:17 Dose: 81 mg Clopidogrel Bisulfate (Plavix) 75 mg PO DAILY [facility] Last Admin: 04/05/18 10:17 Dose: 75 mg Divalproex Sodium (Depakote Er) 250 mg PO [facility] Last Admin: 04/01/18 21:18 Dose: 250 mg Docusate Sodium (Colace) 100 mg PO DAILY [facility] Last Admin: 04/05/18 10:17 Dose: 100 mg Escitalopram Oxalate (Lexapro) 10 mg PO DAILY [facility] Last Admin: 04/02/18 10:32 Dose: 10 mg Famotidine (Pepcid) 20 mg PO DAILY [facility] Last Admin: 04/05/18 10:17 Dose: 20 mg Heparin Sodium (Porcine) (Heparin) 5,000 units SC Q12 [facility] Last Admin: 04/05/18 10:17 Dose: 5,000 units Sodium Chloride (Sodium Chloride 0.9%) 1,000 mls @ 60 mls/hr IV .[id number] [facility] Last Admin: 04/05/18 10:19 Dose: Not Given Insulin Detemir (Levemir) 20 unit SC HS [facility] Last Admin: 04/04/18 21:18 Dose: 20 unit Insulin Human Regular (Novolin R) 0 unit SC ACHS [facility] Last Admin: 04/05/18 17:18 Dose: Not Given Lorazepam (Ativan) 1 mg PO QID PRN PRN Reason: Anxiety Last Admin: 04/03/18 17:57 Dose: 1 mg Mupirocin (Bactroban Ointment) 0 gm TOP BID [facility] Last Admin: 04/05/18 17:26 Dose: 1 applic Nystatin (Mycostatin Cream) 0 ea TOP TID [facility] Last Admin: 04/05/18 17:26 Dose: Not Given Pregabalin (Lyrica) 50 mg PO TID [facility] Last Admin: 04/05/18 17:25 Dose: 50 mg Quetiapine Fumarate (Seroquel) 25 mg PO BID [facility] Last Admin: 04/02/18 18:20 Dose: Not Given Sitagliptin Phosphate (Januvia) 25 mg PO DAILY [facility] Last Admin: 04/05/18 10:17 Dose: 25 mg - Labs Labs: 04/05/18 08:41 04/05/18 08:41 PT 10.6 SECONDS (9.7-12.2) 04/03/18 06:24 INR 1.0 04/03/18 06:24 APTT 32 SECONDS (21-34) 04/05/18 08:41 - Constitutional Appears: Non-toxic - Head Exam Head Exam: NORMAL INSPECTION - Eye Exam Eye Exam: absent: Scleral icterus - ENT Exam ENT Exam: Mucous Membranes Moist - Neck Exam Neck Exam: Full ROM - Respiratory Exam Respiratory Exam: Clear to Ausculation Bilateral - Cardiovascular Exam Cardiovascular Exam: REGULAR RHYTHM - Extremities Exam Extremities Exam: absent: Pedal Edema Additional comments: rt BKA - Neurological Exam Neurological Exam: Alert, Oriented x3 Assessment and Plan - Assessment and Plan (Free Text) Assessment: PVD s/p Fempop CAD CKD stage 3 TAMEKA-improving T2dm Plan: Cont present meds Monitor lytes and CBC
[2018-04-05] MEDS: Insulin Detemir 100 units/ml Vial (Levemir) SC SCH (21:43)
[2018-04-06 06:53] LABS: HEMOGLOBIN 12.1 g/dL (11.0-16.0); MEAN CELL VOLUME 82.8 fL (81.0-99.0); MEAN CORPUSCULAR HEMOGLOBIN 27.2 pg (27.0-31.0); MEAN CORPUSCULAR HGB CONC 32.8 g/dL (33.0-37.0); MEAN PLATELET VOLUME 9.9 fL (7.2-11.7); RBC 4.46 Mil/uL (3.80-5.20); RED CELL DISTRIBUTION WIDTH 15.4 % (11.5-14.5); WHITE BLOOD COUNT 13.7 K/uL (4.8-10.8)
[2018-04-06 07:39] LABS: ALB/GLOB RATIO 1.2 (1.0-2.1); ALBUMIN 3.3 g/dL (3.5-5.0); CALCIUM 9.3 mg/dl (8.6-10.4)
[2018-04-06] MEDS: (Novolin R) Insulin Human Regular 100 units/ml vial SC SCH ×4 (08:12→22:55)
[2018-04-06] MEDS: Nystatin 100,000 Units/gm Cream(15 gm) TOP SCH ×3 (10:21→18:11)
--- NOTE | 2018-04-06 11:02 | CP.PCM.PN ---
Subjective - Date & Time of Evaluation Date of Evaluation: 04/06/18 Time of Evaluation: 08:00 - Subjective Subjective: improving slowly afeb wbc slowly decreaseing Objective - Vital Signs/Intake and Output Vital Signs (last 24 hours): Temp Pulse Resp BP Pulse Ox 100.3 F H 78 20 152/72 H 98 04/06/18 07:00 04/06/18 07:00 04/06/18 07:00 04/06/18 07:00 04/06/18 07:00 Intake and Output: 04/06/18 04/06/18 06:59 18:59 Output Total 800 Balance -800 - Medications Medications: Current Medications Aspirin (Aspirin Chewable) 81 mg PO DAILY [facility] Last Admin: 04/06/18 10:18 Dose: 81 mg Clopidogrel Bisulfate (Plavix) 75 mg PO DAILY [facility] Last Admin: 04/06/18 10:18 Dose: 75 mg Divalproex Sodium (Depakote Er) 250 mg PO [facility] Last Admin: 04/01/18 21:18 Dose: 250 mg Docusate Sodium (Colace) 100 mg PO DAILY [facility] Last Admin: 04/06/18 10:18 Dose: 100 mg Escitalopram Oxalate (Lexapro) 10 mg PO DAILY [facility] Last Admin: 04/02/18 10:32 Dose: 10 mg Famotidine (Pepcid) 20 mg PO DAILY [facility] Last Admin: 04/06/18 10:18 Dose: 20 mg Insulin Detemir (Levemir) 20 unit SC HS [facility] Last Admin: 04/05/18 21:43 Dose: 20 unit Insulin Human Regular (Novolin R) 0 unit SC ACHS [facility] Last Admin: 04/06/18 08:12 Dose: 4 unit Mupirocin (Bactroban Ointment) 0 gm TOP BID [facility] Last Admin: 04/06/18 10:21 Dose: 1 applic Nystatin (Mycostatin Cream) 0 ea TOP TID [facility] Last Admin: 04/06/18 10:21 Dose: 1 applic Pregabalin (Lyrica) 50 mg PO TID [facility] Last Admin: 04/06/18 10:18 Dose: 50 mg Quetiapine Fumarate (Seroquel) 25 mg PO BID [facility] Last Admin: 04/02/18 18:20 Dose: Not Given Sitagliptin Phosphate (Januvia) 25 mg PO DAILY [facility] Last Admin: 04/06/18 10:18 Dose: 25 mg Tramadol HCl (Ultram) 50 mg PO TID PRN PRN Reason: Pain, moderate (4-7) Last Admin: 04/06/18 06:52 Dose: 50 mg - Labs Labs: 04/06/18 06:38 04/06/18 06:38 PT 10.6 SECONDS (9.7-12.2) 04/03/18 06:24 INR 1.0 04/03/18 06:24 APTT 32 SECONDS (21-34) 04/06/18 06:38 - Constitutional Appears: Non-toxic, Chronically Ill - Head Exam Head Exam: NORMOCEPHALIC - Eye Exam Eye Exam: PERRL - ENT Exam ENT Exam: Mucous Membranes Dry - Neck Exam Neck Exam: absent: Lymphadenopathy - Respiratory Exam Respiratory Exam: Decreased Breath Sounds, Prolonged Expiratory Phase - Cardiovascular Exam Cardiovascular Exam: REGULAR RHYTHM - GI/Abdominal Exam GI & Abdominal Exam: Distended Assessment and Plan (1) CKD (chronic kidney disease) stage 3, GFR 30-59 ml/min Status: Acute (2) DM type 2 (diabetes mellitus, type 2) Status: Acute (3) Peripheral vascular disease Status: Acute (4) Altered mental status Status: Acute (5) Bipolar disorder Status: Acute (6) Cellulitis, leg Status: Acute
--- NOTE | 2018-04-06 11:53 | PN ---
Copied To: Haja Pink DO Attending MD: Haja Pink DO DATE: 04/06/2018 SUBJECTIVE: I saw Raegan resting comfortably in bed. She slept fairly well. Her left leg is all bandaged status post surgery. She is having some oozing from some of the incision sites. She is currently on Ativan, aspirin, Bactroban ointment, Colace, Depakote, heparin, Januvia, Levemir, Lexapro, Lyrica, Mycostatin, Novolin, Pepcid, Plavix, Seroquel, IV fluids, and Ultram now for pain. She is having pain in the left leg. PHYSICAL EXAMINATION: VITAL SIGNS: She has 99 temp, 85 pulse, 141/77 blood pressure, 20 respiratory rate, 96% of O2 sat on room air. HEENT: Head is atraumatic, normocephalic. HEART: Regular rate. LUNGS: Decreased breath sounds. Clear to auscultation. ABDOMEN: Soft. EXTREMITIES: The left leg is bandaged. 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 LABORATORY DATA: She has a 12.8 white count yesterday, waiting for this morning, has a 12.2 hemoglobin; 36.6 hematocrit with 148 platelets. Sodium 138, potassium of 3.7, BUN is 22, creatinine 1.1, GFR is 49, sugar is 158, calcium is 8.6. Total bili is 0.4, AST is 19, ALT is 17, alkaline phosphatase 83, total protein is 5.5. ASSESSMENT AND PLAN: Waiting for Surgery to make a decision on the left leg. Checking her labs this morning. We will continue checking her labs making sure she is okay. Also she is being seen by Cardiology, Surgery, Infectious Disease, Renal. She might need to be on antibiotics if her white count goes up. We will see how she does this morning. If it goes down, we will leave her alone and I will discharge her when it is okay with Surgery improving status post femoral-popliteal of the left leg. Now, there is incision issues with some oozing. Continue aggressive treatment and care. We will discharge her back to [facility] when it is okay with Surgery. Haja Pink DO MTDD
--- NOTE | 2018-04-06 12:35 | CP.PCM.PN ---
Subjective - Date & Time of Evaluation Date of Evaluation: 04/06/18 - Subjective Subjective: Has low grade temp elevation feels better LE wounds described as improved HTN controlled TAMEKA resolved lytes acceptable no cjills, n, v, diarrhea- eating well Objective - Vital Signs/Intake and Output Vital Signs (last 24 hours): Temp Pulse Resp BP Pulse Ox 100.3 F H 78 20 152/72 H 98 04/06/18 07:00 04/06/18 07:00 04/06/18 07:00 04/06/18 07:00 04/06/18 07:00 Intake and Output: 04/06/18 04/06/18 06:59 18:59 Output Total 800 Balance -800 - Medications Medications: Current Medications Aspirin (Aspirin Chewable) 81 mg PO DAILY [facility] Last Admin: 04/06/18 10:18 Dose: 81 mg Clopidogrel Bisulfate (Plavix) 75 mg PO DAILY [facility] Last Admin: 04/06/18 10:18 Dose: 75 mg Divalproex Sodium (Depakote Er) [address] [facility] Last Admin: 04/01/18 21:18 Dose: 250 mg Docusate Sodium (Colace) 100 mg PO DAILY [facility] Last Admin: 04/06/18 10:18 Dose: 100 mg Escitalopram Oxalate (Lexapro) 10 mg PO DAILY [facility] Last Admin: 04/02/18 10:32 Dose: 10 mg Famotidine (Pepcid) 20 mg PO DAILY [facility] Last Admin: 04/06/18 10:18 Dose: 20 mg Insulin Detemir (Levemir) 20 unit SC HS [facility] Last Admin: 04/05/18 21:43 Dose: 20 unit Insulin Human Regular (Novolin R) 0 unit SC ACHS [facility] Last Admin: 04/06/18 11:20 Dose: 10 unit Mupirocin (Bactroban Ointment) 0 gm TOP BID [facility] Last Admin: 04/06/18 10:21 Dose: 1 applic Nystatin (Mycostatin Cream) 0 ea TOP TID [facility] Last Admin: 04/06/18 10:21 Dose: 1 applic Pregabalin (Lyrica) 50 mg PO TID [facility] Last Admin: 04/06/18 10:18 Dose: 50 mg Quetiapine Fumarate (Seroquel) 25 mg PO BID [facility] Last Admin: 04/02/18 18:20 Dose: Not Given Sitagliptin Phosphate (Januvia) 25 mg PO DAILY [facility] Last Admin: 04/06/18 10:18 Dose: 25 mg Tramadol HCl (Ultram) 50 mg PO TID PRN PRN Reason: Pain, moderate (4-7) Last Admin: 04/06/18 06:52 Dose: 50 mg - Labs Labs: 04/06/18 06:38 04/06/18 06:38 PT 10.6 SECONDS (9.7-12.2) 04/03/18 06:24 INR 1.0 04/03/18 06:24 APTT 32 SECONDS (21-34) 04/06/18 06:38 - Constitutional Appears: No Acute Distress, Chronically Ill - Head Exam Head Exam: ATRAUMATIC, NORMAL INSPECTION - Eye Exam Eye Exam: EOMI, Normal appearance - Neck Exam Neck Exam: Normal Inspection. absent: Tenderness - Respiratory Exam Respiratory Exam: Clear to Ausculation Bilateral, NORMAL BREATHING PATTERN - Cardiovascular Exam Cardiovascular Exam: REGULAR RHYTHM, +S1 - GI/Abdominal Exam GI & Abdominal Exam: Soft. absent: Tenderness - Extremities Exam Extremities Exam: Normal Inspection. absent: Tenderness - Neurological Exam Neurological Exam: Awake, CN II-XII Intact - Skin Skin Exam: Dry, Warm Assessment and Plan (1) DM type 2 (diabetes mellitus, type 2) Status: Acute (2) CKD (chronic kidney disease) stage 3, GFR 30-59 ml/min Status: Acute (3) Peripheral vascular disease Status: Acute (4) Bipolar disorder Status: Acute - Assessment and Plan (Free Text) Plan: stop IV fluids monitor BP , chemistries
--- NOTE | 2018-04-06 12:40 | CP.PCM.PN ---
Subjective - Date & Time of Evaluation Date of Evaluation: 04/06/18 Time of Evaluation: 12:38 - Subjective Subjective: feels better; eating well wounds improving has low grade temp elevation no chills, n, v, SOB, diarrhea Objective - Vital Signs/Intake and Output Vital Signs (last 24 hours): Temp Pulse Resp BP Pulse Ox 100.3 F H 78 20 152/72 H 98 04/06/18 07:00 04/06/18 07:00 04/06/18 07:00 04/06/18 07:00 04/06/18 07:00 Intake and Output: 04/06/18 04/06/18 06:59 18:59 Output Total 800 Balance -800 - Medications Medications: Current Medications Aspirin (Aspirin Chewable) 81 mg PO DAILY [facility] Last Admin: 04/06/18 10:18 Dose: 81 mg Clopidogrel Bisulfate (Plavix) 75 mg PO DAILY [facility] Last Admin: 04/06/18 10:18 Dose: 75 mg Divalproex Sodium (Depakote Er) 250 mg PO [facility] Last Admin: 04/01/18 21:18 Dose: 250 mg Docusate Sodium (Colace) 100 mg PO DAILY [facility] Last Admin: 04/06/18 10:18 Dose: 100 mg Escitalopram Oxalate (Lexapro) 10 mg PO DAILY [facility] Last Admin: 04/02/18 10:32 Dose: 10 mg Famotidine (Pepcid) 20 mg PO DAILY [facility] Last Admin: 04/06/18 10:18 Dose: 20 mg Insulin Detemir (Levemir) 20 unit SC HS [facility] Last Admin: 04/05/18 21:43 Dose: 20 unit Insulin Human Regular (Novolin R) 0 unit SC ACHS [facility] Last Admin: 04/06/18 11:20 Dose: 10 unit Mupirocin (Bactroban Ointment) 0 gm TOP BID [facility] Last Admin: 04/06/18 10:21 Dose: 1 applic Nystatin (Mycostatin Cream) 0 ea TOP TID [facility] Last Admin: 04/06/18 10:21 Dose: 1 applic Pregabalin (Lyrica) 50 mg PO TID [facility] Last Admin: 04/06/18 10:18 Dose: 50 mg Quetiapine Fumarate (Seroquel) 25 mg PO BID [facility] Last Admin: 04/02/18 18:20 Dose: Not Given Sitagliptin Phosphate (Januvia) 25 mg PO DAILY [facility] Last Admin: 04/06/18 10:18 Dose: 25 mg Tramadol HCl (Ultram) 50 mg PO TID PRN PRN Reason: Pain, moderate (4-7) Last Admin: 04/06/18 06:52 Dose: 50 mg - Labs Labs: 04/06/18 06:38 04/06/18 06:38 PT 10.6 SECONDS (9.7-12.2) 04/03/18 06:24 INR 1.0 04/03/18 06:24 APTT 32 SECONDS (21-34) 04/06/18 06:38 - Constitutional Appears: No Acute Distress, Chronically Ill - Head Exam Head Exam: ATRAUMATIC, NORMAL INSPECTION - Eye Exam Eye Exam: EOMI, Normal appearance - Neck Exam Neck Exam: Normal Inspection. absent: Tenderness - Respiratory Exam Respiratory Exam: Clear to Ausculation Bilateral, NORMAL BREATHING PATTERN - Cardiovascular Exam Cardiovascular Exam: REGULAR RHYTHM, +S1 - GI/Abdominal Exam GI & Abdominal Exam: Soft, Tenderness - Extremities Exam Extremities Exam: Normal Inspection. absent: Tenderness - Skin Skin Exam: Dry, Warm Assessment and Plan (1) DM type 2 (diabetes mellitus, type 2) Status: Acute (2) CKD (chronic kidney disease) stage 3, GFR 30-59 ml/min Status: Acute (3) Peripheral vascular disease Status: Acute (4) Bipolar disorder Status: Acute - Assessment and Plan (Free Text) Plan: stop IV fluids monitor BP, chemistries
[2018-04-06] MEDS: Sodium Chloride 0.9% 1,000 ML IV SCH (15:43)
--- NOTE | 2018-04-06 18:06 | CP.PCM.PN ---
Subjective - Date & Time of Evaluation Date of Evaluation: 04/06/18 Time of Evaluation: 18:04 - Subjective Subjective: Surgery: Dr. Lam Pt seen and examined. No acute events overnight. Resting comfortably in bed. Objective - Vital Signs/Intake and Output Vital Signs (last 24 hours): Temp Pulse Resp BP Pulse Ox 98 F 80 20 123/65 97 04/06/18 15:00 04/06/18 15:00 04/06/18 15:00 04/06/18 15:00 04/06/18 15:00 Intake and Output: 04/06/18 04/06/18 06:59 18:59 Intake Total 700 Output Total 800 Balance -800 700 - Medications Medications: Current Medications Aspirin (Aspirin Chewable) 81 mg PO DAILY [facility] Last Admin: 04/06/18 10:18 Dose: 81 mg Clopidogrel Bisulfate (Plavix) 75 mg PO DAILY [facility] Last Admin: 04/06/18 10:18 Dose: 75 mg Divalproex Sodium (Depakote Er) 250 mg PO [facility] Last Admin: 04/01/18 21:18 Dose: 250 mg Docusate Sodium (Colace) 100 mg PO DAILY [facility] Last Admin: 04/06/18 10:18 Dose: 100 mg Escitalopram Oxalate (Lexapro) 10 mg PO DAILY [facility] Last Admin: 04/02/18 10:32 Dose: 10 mg Famotidine (Pepcid) 20 mg PO DAILY [facility] Last Admin: 04/06/18 10:18 Dose: 20 mg Insulin Detemir (Levemir) 20 unit SC [facility] Last Admin: 04/05/18 21:43 Dose: 20 unit Insulin Human Regular (Novolin R) 0 unit SC ACHS [facility] Last Admin: 04/06/18 11:20 Dose: 10 unit Mupirocin (Bactroban Ointment) 0 gm TOP BID [facility] Last Admin: 04/06/18 10:21 Dose: 1 applic Nystatin (Mycostatin Cream) 0 ea TOP TID [facility] Last Admin: 04/06/18 13:55 Dose: 1 applic Pregabalin (Lyrica) 50 mg PO TID [facility] Last Admin: 04/06/18 13:54 Dose: 50 mg Quetiapine Fumarate (Seroquel) 25 mg PO BID [facility] Last Admin: 04/02/18 18:20 Dose: Not Given Sitagliptin Phosphate (Januvia) 25 mg PO DAILY [facility] Last Admin: 04/06/18 10:18 Dose: 25 mg Tramadol HCl (Ultram) 50 mg PO TID PRN PRN Reason: Pain, moderate (4-7) Last Admin: 04/06/18 06:52 Dose: 50 mg - Labs Labs: 04/06/18 06:38 04/06/18 06:38 PT 10.6 SECONDS (9.7-12.2) 04/03/18 06:24 INR 1.0 04/03/18 06:24 APTT 32 SECONDS (21-34) 04/06/18 06:38 - Constitutional Appears: Non-toxic, In Acute Distress - Head Exam Head Exam: ATRAUMATIC, NORMOCEPHALIC - Eye Exam Eye Exam: EOMI - ENT Exam ENT Exam: Mucous Membranes Moist - Neck Exam Neck Exam: Full ROM - Respiratory Exam Respiratory Exam: NORMAL BREATHING PATTERN. absent: Accessory Muscle Use, Respiratory Distress - GI/Abdominal Exam GI & Abdominal Exam: Soft. absent: Tenderness - Extremities Exam Additional comments: LLE warm, sensation and motor fxn intact - Neurological Exam Neurological Exam: Alert, Awake, Oriented x3 - Psychiatric Exam Psychiatric exam: Normal Affect, Normal Mood - Skin Skin Exam: Dry, Warm Assessment and Plan - Assessment and Plan (Free Text) Assessment: 72F w. PVD, s/p LLE fem-pop bypass, POD#4 -leukocytosis and low grade fever noted, will trend -Encourage OOB, IS use -continue with PT -d/w attending Orly PGY4
[2018-04-06] MEDS: Insulin Detemir 100 units/ml Vial (Levemir) SC SCH (22:56)
--- NOTE | 2018-04-06 23:23 | CP.PCM.PN ---
Subjective - Date & Time of Evaluation Date of Evaluation: 04/06/18 Time of Evaluation: 09:00 - Subjective Subjective: Awake, NAD No chest pain low grade temp No nausea, no vomitting Objective - Vital Signs/Intake and Output Vital Signs (last 24 hours): Temp Pulse Resp BP Pulse Ox 98 F 80 20 123/65 97 04/06/18 15:00 04/06/18 15:00 04/06/18 15:00 04/06/18 15:00 04/06/18 15:00 Intake and Output: 04/06/18 04/07/18 18:59 06:59 Intake Total 700 Balance 700 - Medications Medications: Current Medications Aspirin (Aspirin Chewable) 81 mg PO DAILY [facility] Last Admin: 04/06/18 10:18 Dose: 81 mg Clopidogrel Bisulfate (Plavix) 75 mg PO DAILY [facility] Last Admin: 04/06/18 10:18 Dose: 75 mg Divalproex Sodium (Depakote Er) 250 mg PO [facility] Last Admin: 04/01/18 21:18 Dose: 250 mg Docusate Sodium (Colace) 100 mg PO DAILY [facility] Last Admin: 04/06/18 10:18 Dose: 100 mg Escitalopram Oxalate (Lexapro) 10 mg PO DAILY [facility] Last Admin: 04/02/18 10:32 Dose: 10 mg Famotidine (Pepcid) 20 mg PO DAILY [facility] Last Admin: 04/06/18 10:18 Dose: 20 mg Insulin Detemir (Levemir) 20 unit SC HS [facility] Last Admin: 04/06/18 22:56 Dose: 20 unit Insulin Human Regular (Novolin R) 0 unit SC [facility] Last Admin: 04/06/18 22:55 Dose: 4 unit Mupirocin (Bactroban Ointment) 0 gm TOP BID [facility] Last Admin: 04/06/18 18:12 Dose: 1 applic Nystatin (Mycostatin Cream) 0 ea TOP TID [facility] Last Admin: 04/06/18 18:11 Dose: 1 applic Pregabalin (Lyrica) 50 mg PO TID [facility] Last Admin: 04/06/18 18:09 Dose: 50 mg Quetiapine Fumarate (Seroquel) 25 mg PO BID [facility] Last Admin: 04/02/18 18:20 Dose: Not Given Sitagliptin Phosphate (Januvia) 25 mg PO DAILY [facility] Last Admin: 04/06/18 10:18 Dose: 25 mg Tramadol HCl (Ultram) 50 mg PO TID PRN PRN Reason: Pain, moderate (4-7) Last Admin: 04/06/18 06:52 Dose: 50 mg - Labs Labs: 04/06/18 06:38 04/06/18 06:38 PT 10.6 SECONDS (9.7-12.2) 04/03/18 06:24 INR 1.0 04/03/18 06:24 APTT 32 SECONDS (21-34) 04/06/18 06:38 - Constitutional Appears: Non-toxic - Eye Exam Eye Exam: absent: Scleral icterus - ENT Exam ENT Exam: Mucous Membranes Moist - Neck Exam Neck Exam: Full ROM - Respiratory Exam Respiratory Exam: Clear to Ausculation Bilateral - Cardiovascular Exam Cardiovascular Exam: REGULAR RHYTHM - GI/Abdominal Exam GI & Abdominal Exam: Soft - Extremities Exam Extremities Exam: absent: Pedal Edema Additional comments: rt BKA - Neurological Exam Neurological Exam: Alert Assessment and Plan - Assessment and Plan (Free Text) Assessment: CAD PVD T2dm CKD Bipolar Plan: Cont meds
[2018-04-07 01:36] VITALS: O2SAT 96
[2018-04-07 07:38] LABS: HEMOGLOBIN 11.1 g/dL (11.0-16.0); MEAN CELL VOLUME 83.3 fL (81.0-99.0); MEAN CORPUSCULAR HEMOGLOBIN 27.4 pg (27.0-31.0); MEAN CORPUSCULAR HGB CONC 32.9 g/dL (33.0-37.0); MEAN PLATELET VOLUME 9.7 fL (7.2-11.7); RBC 4.04 Mil/uL (3.80-5.20); RED CELL DISTRIBUTION WIDTH 15.6 % (11.5-14.5); WHITE BLOOD COUNT 13.7 K/uL (4.8-10.8)
[2018-04-07 07:52] LABS: ALBUMIN 2.9 g/dL (3.5-5.0); ALT/SGPT 21 U/L (9-52); AST/SGOT 31 U/L (14-36); BLOOD UREA NITROGEN 17 mg/dL (7-17); CALCIUM 9.1 mg/dl (8.6-10.4); GFR AFRICAN-AMERICAN > 60; GFR NON-AFRICAN AMERICAN 55
--- NOTE | 2018-04-07 08:08 | CP.PCM.PN ---
Subjective - Date & Time of Evaluation Date of Evaluation: 04/07/18 Time of Evaluation: 08:07 - Subjective Subjective: dw leg nice and warm cpm may go o rehab Objective - Vital Signs/Intake and Output Vital Signs (last 24 hours): Temp Pulse Resp BP Pulse Ox 98.2 F 81 20 145/81 96 04/06/18 23:20 04/06/18 23:20 04/06/18 23:20 04/06/18 23:20 04/06/18 23:20 Intake and Output: 04/07/18 04/07/18 06:59 18:59 Intake Total 590 Output Total 950 Balance -360 - Medications Medications: Current Medications Aspirin (Aspirin Chewable) 81 mg PO DAILY [facility] Last Admin: 04/06/18 10:18 Dose: 81 mg Clopidogrel Bisulfate (Plavix) 75 mg PO DAILY [facility] Last Admin: 04/06/18 10:18 Dose: 75 mg Divalproex Sodium (Depakote Er) 250 mg PO HS [facility] Last Admin: 04/01/18 21:18 Dose: 250 mg Docusate Sodium (Colace) 100 mg PO DAILY [facility] Last Admin: 04/06/18 10:18 Dose: 100 mg Escitalopram Oxalate (Lexapro) 10 mg PO DAILY [facility] Last Admin: 04/02/18 10:32 Dose: 10 mg Famotidine (Pepcid) 20 mg PO DAILY [facility] Last Admin: 04/06/18 10:18 Dose: 20 mg Heparin Sodium (Porcine) (Heparin) 5,000 units SC Q12 [facility] Insulin Detemir (Levemir) 20 unit SC HS [facility] Last Admin: 04/06/18 22:56 Dose: 20 unit Insulin Human Regular (Novolin R) 0 unit SC ACHS [facility] Last Admin: 04/06/18 22:55 Dose: 4 unit Mupirocin (Bactroban Ointment) 0 gm TOP BID [facility] Last Admin: 04/06/18 18:12 Dose: 1 applic Nystatin (Mycostatin Cream) 0 ea TOP TID [facility] Last Admin: 04/06/18 18:11 Dose: 1 applic Pregabalin (Lyrica) 50 mg PO TID [facility] Last Admin: 04/06/18 18:09 Dose: 50 mg Quetiapine Fumarate (Seroquel) 25 mg PO BID [facility] Last Admin: 04/02/18 18:20 Dose: Not Given Sitagliptin Phosphate (Januvia) 25 mg PO DAILY [facility] Last Admin: 04/06/18 10:18 Dose: 25 mg Tramadol HCl (Ultram) 50 mg PO TID PRN PRN Reason: Pain, moderate (4-7) Last Admin: 04/06/18 06:52 Dose: 50 mg - Labs Labs: 04/07/18 07:22 04/07/18 07:22 PT 10.6 SECONDS (9.7-12.2) 04/03/18 06:24 INR 1.0 04/03/18 06:24 APTT 32 SECONDS (21-34) 04/06/18 06:38
[2018-04-07] MEDS: (Novolin R) Insulin Human Regular 100 units/ml vial SC SCH ×2 (08:23→12:01)
[2018-04-07 08:33] VITALS: BP 138/88; PULSE 83; TEMP 98.3
[2018-04-07] MEDS: Nystatin 100,000 Units/gm Cream(15 gm) TOP SCH ×2 (09:28→14:14)
--- NOTE | 2018-04-07 09:59 | CP.PCM.PN ---
Subjective - Date & Time of Evaluation Date of Evaluation: 04/07/18 Time of Evaluation: 09:58 - Subjective Subjective: seen and examined comfortable no complaints bp controlled, afebrile no n/v/d/sob/dizziness/cp/f/c/headache Objective - Vital Signs/Intake and Output Vital Signs (last 24 hours): Temp Pulse Resp BP Pulse Ox 98.3 F 83 20 138/88 96 04/07/18 07:35 04/07/18 07:35 04/07/18 07:35 04/07/18 07:35 04/07/18 07:35 Intake and Output: 04/07/18 04/07/18 06:59 18:59 Intake Total 590 Output Total 950 Balance -360 - Medications Medications: Current Medications Aspirin (Aspirin Chewable) 81 mg PO DAILY [facility] Last Admin: 04/07/18 09:22 Dose: 81 mg Clopidogrel Bisulfate (Plavix) 75 mg PO DAILY [facility] Last Admin: 04/07/18 09:22 Dose: 75 mg Divalproex Sodium (Depakote Er) 250 mg PO [facility] Last Admin: 04/01/18 21:18 Dose: 250 mg Docusate Sodium (Colace) 100 mg PO DAILY [facility] Last Admin: 04/07/18 09:22 Dose: 100 mg Escitalopram Oxalate (Lexapro) 10 mg PO DAILY [facility] Last Admin: 04/02/18 10:32 Dose: 10 mg Famotidine (Pepcid) 20 mg PO DAILY [facility] Last Admin: 04/07/18 09:22 Dose: 20 mg Heparin Sodium (Porcine) (Heparin) 5,000 units SC Q12 [facility] Last Admin: 04/07/18 09:33 Dose: 5,000 units Insulin Detemir (Levemir) 20 unit SC HS [facility] Last Admin: 04/06/18 22:56 Dose: 20 unit Insulin Human Regular (Novolin R) 0 unit SC ACHS [facility] Last Admin: 04/07/18 08:23 Dose: Not Given Mupirocin (Bactroban Ointment) 0 gm TOP BID [facility] Last Admin: 04/06/18 18:12 Dose: 1 applic Nystatin (Mycostatin Cream) 0 ea TOP TID [facility] Last Admin: 04/07/18 09:28 Dose: 1 applic Pregabalin (Lyrica) 50 mg PO TID [facility] Last Admin: 04/07/18 09:33 Dose: 50 mg Quetiapine Fumarate (Seroquel) 25 mg PO BID [facility] Last Admin: 04/02/18 18:20 Dose: Not Given Sitagliptin Phosphate (Januvia) 25 mg PO DAILY [facility] Last Admin: 04/07/18 09:22 Dose: 25 mg Tramadol HCl (Ultram) 50 mg PO TID PRN PRN Reason: Pain, moderate (4-7) Last Admin: 04/07/18 09:20 Dose: 50 mg - Labs Labs: 04/07/18 07:22 04/07/18 07:22 PT 10.6 SECONDS (9.7-12.2) 04/03/18 06:24 INR 1.0 04/03/18 06:24 APTT 32 SECONDS (21-34) 04/06/18 06:38 - Constitutional Appears: No Acute Distress, Chronically Ill - Head Exam Head Exam: NORMAL INSPECTION, NORMOCEPHALIC - Eye Exam Eye Exam: Normal appearance, PERRL - ENT Exam ENT Exam: Mucous Membranes Moist, Normal Exam - Neck Exam Neck Exam: Full ROM, Normal Inspection - Respiratory Exam Respiratory Exam: Clear to Ausculation Bilateral, NORMAL BREATHING PATTERN - Cardiovascular Exam Cardiovascular Exam: REGULAR RHYTHM, RRR - GI/Abdominal Exam GI & Abdominal Exam: Distended, Soft, Normal Bowel Sounds - Extremities Exam Additional comments: RLE amputee, LLE in dressing - Neurological Exam Neurological Exam: Alert, Awake, Oriented x3 - Psychiatric Exam Psychiatric exam: Normal Affect, Normal Mood - Skin Skin Exam: Dry, Intact Assessment and Plan (1) CKD (chronic kidney disease) stage 3, GFR 30-59 ml/min Status: Acute (2) DM type 2 (diabetes mellitus, type 2) Status: Acute (3) Peripheral vascular disease Status: Acute (4) Bipolar disorder Status: Acute - Assessment and Plan (Free Text) Assessment: stable from renal standpoint meds reviewed bp controlled
--- NOTE | 2018-04-07 12:29 | CP.PCM.PN ---
Subjective - Date & Time of Evaluation Date of Evaluation: 04/07/18 Time of Evaluation: 06:35 - Subjective Subjective: Vascular surgery Progress note for Dr. Lam Patient seen and examined this am at bedside. Dressing was changed at bedside. Patient states that she is feeling well and that her pain is well controlled. She denies f/c/n/v and any cold feeling in her foot. Objective - Vital Signs/Intake and Output Vital Signs (last 24 hours): Temp Pulse Resp BP Pulse Ox 98.3 F 83 20 138/88 96 04/07/18 07:35 04/07/18 07:35 04/07/18 07:35 04/07/18 07:35 04/07/18 07:35 Intake and Output: 04/07/18 04/07/18 06:59 18:59 Intake Total 590 Output Total 950 Balance -360 - Medications Medications: Current Medications Aspirin (Aspirin Chewable) 81 mg PO DAILY [facility] Last Admin: 04/07/18 09:22 Dose: 81 mg Clopidogrel Bisulfate (Plavix) 75 mg PO DAILY [facility] Last Admin: 04/07/18 09:22 Dose: 75 mg Divalproex Sodium (Depakote Er) 250 mg PO HS [facility] Last Admin: 04/01/18 21:18 Dose: 250 mg Docusate Sodium (Colace) 100 mg PO DAILY [facility] Last Admin: 04/07/18 09:22 Dose: 100 mg Escitalopram Oxalate (Lexapro) 10 mg PO DAILY [facility] Last Admin: 04/02/18 10:32 Dose: 10 mg Famotidine (Pepcid) 20 mg PO DAILY [facility] Last Admin: 04/07/18 09:22 Dose: 20 mg Heparin Sodium (Porcine) (Heparin) 5,000 units SC Q12 [facility] Last Admin: 04/07/18 09:33 Dose: 5,000 units Insulin Detemir (Levemir) 20 unit SC HS [facility] Last Admin: 04/06/18 22:56 Dose: 20 unit Insulin Human Regular (Novolin R) 0 unit SC ACHS [facility] Last Admin: 04/07/18 12:01 Dose: 4 unit Mupirocin (Bactroban Ointment) 0 gm TOP BID [facility] Last Admin: 04/06/18 18:12 Dose: 1 applic Nystatin (Mycostatin Cream) 0 ea TOP TID [facility] Last Admin: 04/07/18 09:28 Dose: 1 applic Pregabalin (Lyrica) 50 mg PO TID [facility] Last Admin: 04/07/18 09:33 Dose: 50 mg Quetiapine Fumarate (Seroquel) 25 mg PO BID [facility] Last Admin: 04/02/18 18:20 Dose: Not Given Sitagliptin Phosphate (Januvia) 25 mg PO DAILY [facility] Last Admin: 04/07/18 09:22 Dose: 25 mg Tramadol HCl (Ultram) 50 mg PO TID PRN PRN Reason: Pain, moderate (4-7) Last Admin: 04/07/18 09:20 Dose: 50 mg - Labs Labs: 04/07/18 07:22 04/07/18 07:22 PT 10.6 SECONDS (9.7-12.2) 04/03/18 06:24 INR 1.0 04/03/18 06:24 APTT 32 SECONDS (21-34) 04/06/18 06:38 - Constitutional Appears: Well, Non-toxic, No Acute Distress - Head Exam Head Exam: ATRAUMATIC, NORMOCEPHALIC - Eye Exam Eye Exam: Normal appearance - ENT Exam ENT Exam: Mucous Membranes Moist - Respiratory Exam Respiratory Exam: NORMAL BREATHING PATTERN - GI/Abdominal Exam GI & Abdominal Exam: Soft. absent: Tenderness - Extremities Exam Extremities Exam: absent: Pedal Edema Additional comments: Distal pulses are dopplerable PT and DP on the left foot, incision is clean dry and intact with new clean dressing placed today - Neurological Exam Neurological Exam: Alert, Awake, Oriented x3 - Psychiatric Exam Psychiatric exam: Normal Affect, Normal Mood - Skin Skin Exam: Dry, Intact, Normal Color, Warm Assessment and Plan - Assessment and Plan (Free Text) Assessment: 72 yr old female s/p popliteal to femoral bypass POD 5, recovering well Plan: - DP and PT pulses dopplerable in the left leg - encourage IS use and OOB - continue PT treatment - patient cleared from surgical standpoint and may go to rehab - d/w Dr. Lam, all further recs per him Radha Dover, PGY 1
--- NOTE | 2018-04-08 06:23 | DS ---
Copied To: Haja Pink DO Attending MD: DO Dr. Carole Sexton, the surgeon, said I could discharge her to rehab today, back to [facility]. She is status post left peripheral arterial disease, fem-pop bypass. She is on aspirin, Bactrim, Colace, Depakote, heparin, Januvia, Levemir, Lexapro, Lyrica, Mycostatin, Novolin, Pepcid, Plavix, Seroquel, and Ultram. PHYSICAL EXAMINATION: GENERAL: She is alert, comfortable in bed, and eating well, in very little pain. VITAL SIGNS: Has 98.2 temperature, 81 pulse, 145/81 blood pressure, 20 respiratory rate, 96% O2 sat on 2 liters nasal cannula. HEENT: Head is atraumatic, normocephalic. HEART: Regular rate. LUNGS: Decreased breath sounds but clear. ABDOMEN: Soft, obese, nontender. 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 Lam. LABORATORY DATA: She has a 13.7 white count, 11.1 hemoglobin, 36.7 hematocrit with 184 platelets. She has 139 sodium, potassium 4.3, BUN 17, creatinine 1, GFR is 55, sugar is 130, calcium 9.1. Total bili is 0.5, AST is 31, ALT is 21, alk phos 78, total protein 5.7, and albumin is 2.9. She has been seen by Renal, Infectious Disease, Surgery, Cardiology. She still has a little bit of leukocytosis and at this time, there are no antibiotics ordered by Infectious Disease. We will watch at subacute at [facility]. I will discharge her today back there for continued treatment. I will watch her white count and if we have to add antibiotics, we will. Haja Pink DO
== END 2018-04-07 15:07 | DRG 253 ==
LOC: C.ER 08:03 → C.9E 10:14 → C.3T 10:46 → C.9I 04-02 11:17 → C.6T 04-04 17:20
PROVIDERS: ADMIT Family Medicine; ATTEND Family Medicine
PROC: 4A023N7 Measurement of Cardiac Sampling and Pressure, Left Heart, Percutaneous Approach (ICD-10-PCS; 2018-03-26)
PROC: B2151ZZ Fluoroscopy of Left Heart using Low Osmolar Contrast (ICD-10-PCS; 2018-03-26)
PROC: B2111ZZ Fluoroscopy of Multiple Coronary Arteries using Low Osmolar Contrast (ICD-10-PCS; 2018-03-26)
PROC: B41GZZZ Fluoroscopy of Left Lower Extremity Arteries (ICD-10-PCS; 2018-04-02)
PROC: 041L09L Bypass Left Femoral Artery to Popliteal Artery with Autologous Venous Tissue, Open Approach (ICD-10-PCS; principal; 2018-04-02 12:00)
DX: E11.52 Type 2 diabetes mellitus with diabetic peripheral angiopathy with gangrene (principal); L03.116 Cellulitis of left lower limb; L97.529 Non-pressure chronic ulcer of other part of left foot with unspecified severity; N17.9 Acute kidney failure, unspecified; T46.4X5A Adverse effect of angiotensin-converting-enzyme inhibitors, initial encounter; I95.81 Postprocedural hypotension; I13.0 Hypertensive heart and chronic kidney disease with heart failure and stage 1 through stage 4 chronic kidney disease, or unspecified chronic kidney disease; I25.10 Atherosclerotic heart disease of native coronary artery without angina pectoris; I25.82 Chronic total occlusion of coronary artery; E11.621 Type 2 diabetes mellitus with foot ulcer; E11.22 Type 2 diabetes mellitus with diabetic chronic kidney disease; I50.9 Heart failure, unspecified; J44.9 Chronic obstructive pulmonary disease, unspecified; N18.3 Chronic kidney disease, stage 3 (moderate); F31.9 Bipolar disorder, unspecified; E78.00 Pure hypercholesterolemia, unspecified; F17.210 Nicotine dependence, cigarettes, uncomplicated; Z89.511 Acquired absence of right leg below knee; Z79.4 Long term (current) use of insulin; Z91.041 Radiographic dye allergy status; Z79.82 Long term (current) use of aspirin

== ENCOUNTER 2018-04-18 09:18 | Inpatient (IN) | payer MEDICARE, MEDICAID ==
[2018-04-18 09:19] VITALS: BMI 28.3
[2018-04-18] MEDS ORDERED: Sodium Chloride 0.9% 2,000 ML ONE (09:40)
[2018-04-18] MEDS ORDERED: Sodium Chloride 0.9% 1,000 ML IV ONE (09:50)
[2018-04-18 09:54] LABS: VENOUS BLOOD GAS PCO2 36 mmHg (40-60); VENOUS BLOOD GAS PO2 33 mm/Hg (30-55); VENOUS BLOOD PH 7.28 (7.32-7.43)
[2018-04-18 09:54] LABS: BASO % 0.2 % (0.0-2.0); HEMOGLOBIN 15.3 g/dL (11.0-16.0); LYMPH # 0.7 K/uL (1.0-4.3); LYMPH % 4.8 % (20.0-40.0); MEAN CORPUSCULAR HEMOGLOBIN 27.1 pg (27.0-31.0); MEAN CORPUSCULAR HGB CONC 31.9 g/dL (33.0-37.0); MONO # 0.5 K/uL (0.0-0.8); MONO % 3.6 % (0.0-10.0); NEUT # 12.7 K/uL (1.8-7.0); NEUT % 91.4 % (50.0-75.0); PLATELET COUNT 255 K/uL (130-400); RBC 5.65 Mil/uL (3.80-5.20); WHITE BLOOD COUNT 13.9 K/uL (4.8-10.8)
[2018-04-18] MEDS ORDERED: Aztreonam 2 GM in Sodium Chloride 0.9% 100 ML IVPB STA (09:57)
[2018-04-18] MEDS ORDERED: Vancomycin 1 gm/NS 200 ml 1 GM/200 ML BAG IVPB STA (09:57)
[2018-04-18 10:13] LABS: INR 1.3; PROTHROMBIN TIME 14.3 SECONDS (9.7-12.2)
[2018-04-18 10:29] LABS: ALB/GLOB RATIO 1.2 (1.0-2.1); ALBUMIN 3.9 g/dL (3.5-5.0); CALCIUM 9.5 mg/dl (8.6-10.4)
[2018-04-18 10:35] LABS: SQUAMOUS EPITHIAL 2 /hpf (0-5); URINE BACTERIA MOD (<OCC); URINE BILIRUBIN NEGATIVE (NEGATIVE); URINE BLOOD NEGATIVE (NEGATIVE); URINE CLARITY Hazy (Clear); URINE COLOR Amber (YELLOW); URINE GLUCOSE (UA) NORMAL (Normal); URINE LEUKOCYTE ESTERASE 3+ Leu/uL (Negative); URINE PROTEIN 1+ mg/dL (NEGATIVE)
[2018-04-18] MEDS ORDERED: Succinylcholine Chloride 20 mg/ml Syr (5 ml) IV ONE (10:37)
[2018-04-18] MEDS ORDERED: Etomidate 20 mg/10ml Inj IV ONE (10:37)
--- NOTE | 2018-04-18 10:46 | CT ---
Date of service: 04/18/2018 for PROCEDURE: CT HEAD WITHOUT CONTRAST. HISTORY: altered mental status COMPARISON: None available. TECHNIQUE: Axial computed tomography images were obtained through the head/brain without intravenous contrast. Radiation dose: Total exam DLP = 904 mGy-cm. This CT exam was performed using one or more of the following dose reduction techniques: Automated exposure control, adjustment of the mA and/or kV according to patient size, and/or use of iterative reconstruction technique. FINDINGS: HEMORRHAGE: No intracranial hemorrhage. BRAIN: No mass effect or edema. Scattered focal lucencies in the subcortical and periventricular white matter suggestive for chronic microvascular ischemic change. VENTRICLES: Prominence. CALVARIUM: Few small bony exostoses at the undersurface of the right frontal cranium. PARANASAL SINUSES: Unremarkable as visualized. No significant inflammatory changes. MASTOID AIR CELLS: Unremarkable as visualized. No inflammatory changes. OTHER FINDINGS: None. IMPRESSION: Chronic microvascular ischemic change. If symptoms persist, consider correlation with MRI.
--- NOTE | 2018-04-18 10:47 | RAD ---
Chest x-ray single frontal view History: Post intubation. Sepsis. Comparison: None available. Findings: Endotracheal tube approximately 1.3 centimeters above the nate. Left PICC line with tip extending to the right SVC. Biapical pleural thickening with upper lobe granulomatous changes. Mild venous congestion. Right hilar prominence. Patchy increased markings at the right lung base. Degenerative changes in the spine. Impression: Endotracheal tube approximately 1.3 centimeters above the nate. Left PICC line with tip extending to the right SVC. Biapical pleural thickening with upper lobe granulomatous changes. Mild venous congestion. Right hilar prominence. Patchy increased markings at the right lung base. Degenerative changes in the spine.
[2018-04-18 10:48] LABS: ANISOCYTOSIS SLIGHT; LYMPHOCYTE 4 % (20-40); MONOCYTE 1 % (0-10); NEUTROPHIL 95 % (50-75); PLATELET ESTIMATE NORMAL (NORMAL); TOTAL CELLS COUNTED 100
[2018-04-18 10:49] LABS: HYPOCHROMIC SLIGHT; POLYCHROMIC SLIGHT
--- NOTE | 2018-04-18 10:55 | C.PDOC ---
History Of Present Illness 72 year old female brought to ED via [facility]/ALS from skilled nursing after she was found unresponsive with labored breathing as per ALS- Dr. Pink had gone in to evaluate the patient. EMS was called and patient was hypoxic down to 91 percent. Patient was ambu bagged up to 95 percent, but still unresponsive. Patient had a recent femoral popliteal bypass with Dr. Lam, and there was concern for sepsis vs. stroke. Upon arrival patient still had labored breathing and was unresponsive. Time Seen by Provider: 04/18/18 09:46 Chief Complaint (Nursing): Altered Mental Status Past Medical History Vital Signs: Last Vital Signs Temp 99.6 F 04/18/18 16:00 Pulse 99 H 04/18/18 18:57 Resp 20 04/18/18 18:57 BP 98/68 L 04/18/18 18:57 Pulse Ox 96 04/18/18 19:05 - Medical History PMH: Anxiety, Bipolar Disorder, CHF, COPD, Depression, Diabetes, HTN Denies: Hepatitis, HIV, Chronic Kidney Disease, Seizures, Sexually Transmitted Disease Surgical History: Denies: Pacemaker - [facility] Procedures ANGIOPLASTY OF OTHER NON-CORONARY VESSEL(S) (02/28/15) ATHERECTOMY OF OTHER NON-CORONARY VESSEL(S) (02/28/15) BYPASS L FEM ART TO POPLIT ART WITH AUTOL VN, OPEN APPROACH (03/23/18) CERVICAL BIOPSY NEC (03/20/98) COLONOSCOPY (07/28/13) CONTRAST AORTOGRAM (02/28/15) CONTRAST ARTERIOGRAM-LEG (02/28/15) D & C NEC (03/20/98) DILATION OF L COM ILIAC ART WITH INTRALUM DEV, PERC APPROACH (12/01/17) DILATION OF L EXT ILIAC ART WITH INTRALUM DEV, PERC APPROACH (12/01/17) ESOPHAGOGASTRODUODENOSCOPY [EGD] W/CLOSED BIOPSY (10/23/12) FLUOROSCOPY OF AORTA AND BILATERAL LOWER EXTREMITY ARTERIES (12/01/17) FLUOROSCOPY OF LEFT HEART USING LOW OSMOLAR CONTRAST (03/23/18) FLUOROSCOPY OF LEFT LOWER EXTREMITY ARTERIES (03/23/18) FLUOROSCOPY OF MULT COR ART USING L OSM CONTRAST (03/23/18) INJECT/INFUSE ELECTROLYT (08/28/12) INJECT/INFUSE NEC (08/28/12) INSEJ [id number] PERIPHERAL NON-CORONARY VES STENT(S) (02/28/15) INSERTION OF ONE VASCULAR STENT (02/28/15) MEASURE OF CARDIAC SAMPL & PRESSURE, L HEART, PERC APPROACH (03/23/18) MEDICATION MANAGEMENT (07/16/15) PROCEDURE ON SINGLE VESSEL (02/28/15) PSYCHIAT DRUG THERAP NEC (02/16/15) TRANSFUSE NONAUT RED BLOOD CELLS IN PERIPH VEIN, PERC (12/01/17) Family History: States: Unknown Family Hx - Social History Hx Tobacco Use: No Hx Alcohol Use: No Hx Substance Use: No Review Of Systems Review Of Systems: ROS cannot be obtained secondary to pt's inabilty to answer questions. Physical Exam - Physical Exam Appears: Other (Unresponsive) Skin: Warm Head: Atraumatic, Normacephalic Eye(s): bilateral: Normal Inspection Oral Mucosa: Dry Chest: Symmetrical Cardiovascular: Rhythm Regular Respiratory: Decreased Breath Sounds, Accessory Muscle Use, Other (Increased work of breathing, respiratory distress) Gastrointestinal/Abdominal: Soft Extremity: No Deformity Neurological/Psych: No Response To Commands Disoriented To: Person, Place, Time, Situation ED Course And Treatment - Laboratory Results Result Diagrams: 04/18/18 09:50 04/18/18 14:26 ECG: Interpreted By Me ECG Rhythm: Sinus Rhythm O2 Sat by Pulse Oximetry: 96 (RA) Pulse Ox Interpretation: Normal - Other Rad Chest X-ray X-Ray: Read By Radiologist Interpretation: Findings: Endotracheal tube approximately 1.3 centimeters above the nate. Left PICC line with tip extending to the right SVC. Biapical pleural thickening with upper lobe granulomatous changes. Mild venous congestion. Right hilar prominence. Patchy increased markings at the right lung base. Degenerative changes in the spine. Impression: Endotracheal tube approximately 1.3 centimeters above the nate. Left PICC line with tip extending to the right SVC. Biapical pleural thickening with upper lobe granulomatous changes. Mild venous congestion. Right hilar prominence. Patchy increased markings at the right lung base. Degenerative changes in the spine. - CT Scan/US CT head CT/US Interpretation: FINDINGS: HEMORRHAGE: No intracranial hemorrhage. BRAIN : No mass effect or edema. Scattered focal lucencies in the subcortical and periventricular white matter suggestive for chronic microvascular ischemic change. VENTRICLES: Prominence. CALVARIUM: Few small bony exostoses at the undersurface of the right frontal cranium. PARANASAL SINUSES: Unremarkable as visualized. No significant inflammatory changes. MASTOID AIR CELLS: Unremarkable as visualized. No inflammatory changes. OTHER FINDINGS: None. IMPRESSION: Chronic microvascular ischemic change. If symptoms persist, consider correlation with MRI. Critical Care Time - Critical Care Note Total Time (in mins): 30 Documented critical care: time excludes all time spent performing seperately billable procedures. Endotracheal Intubation - Endotracheal Intubation Intubated With ETT Size: 7 (7.5) Blade Type Used: Curved Indication: Airway Protection Intubated: Orally Pre-Intubation Airway Assessment: Ventilated And Oxygenated, Does Not Appear To Have A Difficult Airway Medications Used During Pre-Intubation: Etomidate (20mg) Paralyzed With: Succinylcholine (100mg) Post-Intubation Assessment: ETT Secured AT (cm): (23 at the lip), Breath Sounds Equal Bilat, Placement Confirmed Via CXR, Color Change W/End Tidal CO2 Detector , Oxygen Saturation: (100%) Medical Decision Making Medical Decision Making: Patient seen and examined immediately upon arrival due to critical nature. Decision made to intubate as patient has increased work of breathing and is tachypneic. Please see procedure note for further details. Patient still unresponsive post intubation. 2500cc NS bolus initiated for hypotention with suspected sepsis. Temp sensing ann placed, patient febrile. Aztreonam and vancomycin ivpb ordered empirically for sepsis. Patient to CT for altered mental status as patient is a vasculopath and had recent rem-pop bypass , concern for CVA although sepsis seems more likely. 1g tylenol CA given for fever. Lactic acidosis noted, IV fluids continued. CT head was unremarkable. Hyperglycemia noted as well, given acidosis with elevated anion gap will also treat for DKA. Insulin gtt initiated. Patient was hypotensive as low as mid 70's systolic. Levophed gtt ordered, however BP improved to 90's systolic with IV fluids. Case discussed with Dr. Ha, ICU attending. Accepts patient for admission. Disposition - Disposition Disposition: HOSPITALIZED Disposition Time: 11:04 Condition: GUARDED - Clinical Impression Clinical Impression: Altered mental status, Sepsis, Respiratory failure
[2018-04-18] MEDS ORDERED: Sodium Chloride 0.9% 1,000 ML IV SCH (11:15)
[2018-04-18] MEDS: Insulin Human Regular 100 UNIT in Sodium Chloride 0.9% 99 ML IV SCH ×3 (12:02→13:00)
[2018-04-18] MEDS ORDERED: Insulin Human Regular 100 UNIT in Sodium Chloride 0.9% 99 ML IV SCH (12:30)
[2018-04-18] MEDS ORDERED: Aztreonam 2 GM in Sodium Chloride 0.9% 100 ML IVPB SCH (13:15)
[2018-04-18 14:05] LABS: ARTERIAL BLOOD GAS HCO3 18.6 mmol/L (21-28); ARTERIAL BLOOD GAS O2 SAT 99.5 % (95-98); ARTERIAL BLOOD GAS PCO2 29 mm/Hg (35-45); ARTERIAL BLOOD GAS PH 7.35 (7.35-7.45); ARTERIAL BLOOD GAS PO2 236 mm/Hg (80-100); ARTERIAL BLOOD GAS TCO2 16.9 mmol/L (22-28)
--- NOTE | 2018-04-18 14:11 | CP.PCM.CON ---
History of Present Illness - History of Present Illness History of Present Illness: Vasculr surgery consult for Dr. Lam Consulted for: Recent R fem-pop bypass HPI and ROS not obtainable from the patient who is intubated and non-responsive , all information gleaned from chart and nursing staff Pt is a 72F with PMH including PVD, DM, and right BKA who had a left fem-pop bypass with greater saphenous vein graft on 04/02/18--16 days ago. Patient was discharged to a [facility] after recovering. Patient was brought to the ER today for altered mental status, was intubated in the ER and found to have a glucose >500, hypotension, and elevated WBC. Small amount of serous drainage is present on the superior pole of the wound and there is an area of lack of approximation of the incision around the knee, so surgery team was consulted. Review of Systems - Review of Systems Systems not reviewed;Unavailable: Altered Mental Status, Intubated Past Patient History - Infectious Disease Hx of Infectious Diseases: None - Tetanus Immunizations Tetanus Immunization: Unknown - Past Medical History & Family History Past Medical History?: Yes Pertinent Family History: unable to obtain due to AMS/intubation - Past Social History Smoking Status: Light Smoker < 10 Cigarettes Daily - CARDIAC Hx Congestive Heart Failure: Yes Hx Hypertension: Yes Hx Pacemaker: No - PULMONARY Hx Chronic Obstructive Pulmonary Disease (COPD): Yes - NEUROLOGICAL Hx Seizures: No - HEENT Hx HEENT Problems: No Hx Cataracts: Yes - RENAL Hx Chronic Kidney Disease: No - ENDOCRINE/METABOLIC Hx Diabetes Mellitus Type 2: Yes - HEMATOLOGICAL/ONCOLOGICAL Hx Human Immunodeficiency Virus (HIV): No - INTEGUMENTARY Other/Comment: pvd - MUSCULOSKELETAL/RHEUMATOLOGICAL Hx Falls: No - GASTROINTESTINAL Hx Gastrointestinal Disorders: No - GENITOURINARY/GYNECOLOGICAL Hx Sexually Transmitted Disorders: No - PSYCHIATRIC Hx Anxiety: Yes Hx Bipolar Disorder: Yes Hx Depression: Yes Hx Substance Use: No - SURGICAL HISTORY Hx Surgeries: Yes Other/Comment: right BKA. left leg femoropopliteal sx - ANESTHESIA Hx Anesthesia: Yes Hx Anesthesia Reactions: No Hx Malignant Hyperthermia: No Meds Allergies/Adverse Reactions: Allergies Allergy/AdvReac Type Severity Reaction Status Date / Time Penicillins Allergy Verified 04/18/18 11:52 aminothiols Allergy Mild RASH Uncoded 04/18/18 09:31 CONTRAST AdvReac Intermediate "SPACED Uncoded 04/18/18 09:31 OUT" - Medications Medications: Current Medications Norepinephrine Bitartrate 4 mg (/ Sodium Chloride) 254 mls @ 15.24 mls/hr IV .[id number] PRN; Protocol; 4 MCG/MIN PRN Reason: TITRATE PER MD ORDER Last Titration: 04/18/18 14:08 Dose: 6 mcg/min, 22.86 mls/hr Insulin Human Regular 100 unit (/ Sodium Chloride) 100 mls @ 5 mls/hr IV .Q20H XAVIER PRN Reason: Protocol Potassium Chloride 20 meq/ (Sodium Chloride) 1,010 mls @ 150 mls/hr IV .Q6H44M XAVIER Ceftriaxone Sodium 1 gm/ (Sodium Chloride) 100 mls @ 200 mls/hr IVPB Q24H XAVIER PRN Reason: Protocol Physical Exam - Constitutional Appears: No Acute Distress, Chronically Ill - Head Exam Head Exam: ATRAUMATIC, NORMOCEPHALIC - ENT Exam ENT Exam: Mucous Membranes Moist Additional comments: ETT in place - Respiratory Exam Respiratory Exam: NORMAL BREATHING PATTERN. absent: Accessory Muscle Use, Respiratory Distress Additional comments: mechanically ventilated - Cardiovascular Exam Cardiovascular Exam: RRR - GI/Abdominal Exam GI & Abdominal Exam: Distended (mild), Soft. absent: Tenderness - Extremities Exam Extremities exam: Negative for: calf tenderness, pedal edema Additional comments: Left TP palpable, Left DP strong doppler signal INcision extending from left medial groin to left mid-calf with palpable pulse underneath. Small amount of serous fluid drainage in the superior pole with no inflammation or bleeding expressed. Area approximately 4cm in length by the knee with poor approximation of the incision with no purulent drainage or undermining palpablek, minimal surrounding inflammation, no surrounding fluctuance or crepitus Righ BKA with small area of ecchymosis on the stump concerning for a DTI - Back Exam Back exam: NORMAL INSPECTION - Neurological Exam Neurological exam: Alert, Oriented x3 - Psychiatric Exam Additional comments: unresponsive - Skin Skin Exam: Dry, Intact, Normal Color, Warm Additional comments: except as noted above Results - Vital Signs Recent Vital Signs: Last Vital Signs Temp 100.9 F H 04/18/18 11:25 Pulse 95 H 04/18/18 11:25 Resp 17 04/18/18 11:25 BP 80/50 L 04/18/18 12:01 Pulse Ox 100 04/18/18 11:25 - Labs Result Diagrams: 04/18/18 09:50 04/18/18 14:26 Labs: Laboratory Results - last 24 hr 04/18/18 04/18/18 04/18/18 09:45 09:50 09:50 WBC 13.9 H RBC 5.65 H Hgb 15.3 D Hct 48.0 H MCV 85.0 MCH 27.1 MCHC 31.9 L RDW 17.0 H Plt Count 255 MPV 11.0 Neut % (Auto) 91.4 H Lymph % (Auto) 4.8 L [place] % (Auto) 3.6 Eos % (Auto) 0.0 Baso % (Auto) 0.2 Neut # (Auto) 12.7 H Lymph # (Auto) 0.7 L [place] # (Auto) 0.5 Eos # (Auto) 0.0 Baso # (Auto) 0.0 Neutrophils % (Manual) 95 H Lymphocytes % (Manual) 4 L Monocytes % (Manual) 1 Platelet Estimate Normal Polychromasia Slight Hypochromasia (manual) Slight Anisocytosis (manual) Slight PT 14.3 H INR 1.3 APTT 33 Puncture Site pCO2 pO2 33 HCO3 ABG pH ABG Total CO2 ABG O2 Saturation ABG Base Excess Perez Test ABG Potassium VBG pH 7.28 L VBG pCO2 36 L VBG HCO3 16.7 VBG Total CO2 18.0 L VBG O2 Sat (Calc) 57.6 VBG Base Excess -9.0 L VBG Potassium 4.2 A-a O2 Difference Respiratory Index Sodium 152.0 H Chloride 110.0 H Glucose 546 H* D Lactate 6.3 H* Vent Mode Mechanical Rate FiO2 100.0 Tidal Volume PEEP 5 Crit Value Called To Er nurse patt Crit Value Called By Ivy rt Crit Value Read Back Y Blood Gas Notified Time 954 Potassium Carbon Dioxide Anion Gap BUN Creatinine Est GFR ( Amer) Est GFR (Non-Af Amer) Random Glucose Calcium Total Bilirubin AST ALT Alkaline Phosphatase Total Protein Albumin Globulin Albumin/Globulin Ratio Arterial Blood Potassium Venous Blood Potassium 4.2 Urine Color Urine Clarity Urine pH Ur Specific [place] Urine Protein Urine Glucose (UA) Urine Ketones Urine Blood Urine Nitrate Urine Bilirubin Urine Urobilinogen Ur Leukocyte Esterase Urine WBC (Auto) Urine RBC (Auto) Ur Squamous Epith Cells Urine Bacteria Hyaline Casts 08/04/18/18 04/18/18 09:50 10:02 14:01 WBC RBC Hgb Hct MCV MCH MCHC RDW Plt Count MPV Neut % (Auto) Lymph % (Auto) [place] % (Auto) Eos % (Auto) Baso % (Auto) Neut # (Auto) Lymph # (Auto) [place] # (Auto) Eos # (Auto) Baso # (Auto) Neutrophils % (Manual) Lymphocytes % (Manual) Monocytes % (Manual) Platelet Estimate Polychromasia Hypochromasia (manual) Anisocytosis (manual) PT INR APTT Puncture Site Rba pCO2 29 L pO2 236 H HCO3 18.6 L ABG pH 7.35 ABG Total CO2 16.9 L ABG O2 Saturation 99.5 H ABG Base Excess -8.2 L Perez Test Na ABG Potassium 2.5 L* VBG pH VBG pCO2 VBG HCO3 VBG Total CO2 VBG O2 Sat (Calc) VBG Base Excess VBG Potassium A-a O2 Difference 441.0 Respiratory Index 1.9 Sodium 154 H 154.0 H Chloride 113 H 125.0 H Glucose 256 H Lactate 2.2 H Vent Mode Prvc Mechanical Rate 14 FiO2 100.0 Tidal Volume 500 PEEP 5 Crit Value Called To Crit Value Called By Hank ricardo,spanish interpreter/translator Crit Value Read Back Y Blood Gas Notified Time 1410 Potassium 4.1 Carbon Dioxide 16 L Anion Gap 30 H BUN 78 H Creatinine 3.7 H Est GFR ( Amer) 15 Est GFR (Non-Af Amer) 12 Random Glucose 532 H* D Calcium 9.5 Total Bilirubin 0.9 AST 23 ALT 17 Alkaline Phosphatase 110 Total Protein 7.0 Albumin 3.9 Globulin 3.1 Albumin/Globulin Ratio 1.2 Arterial Blood Potassium 2.5 L* Venous Blood Potassium Urine Color Andra Urine Clarity Hazy Urine pH 7.0 Ur Specific [place] 1.015 Urine Protein 1+ H Urine Glucose (UA) Normal Urine Ketones Trace Urine Blood Negative Urine Nitrate Negative Urine Bilirubin Negative Urine Urobilinogen 2.0 H Ur Leukocyte Esterase 3+ H Urine WBC (Auto) 72 H Urine RBC (Auto) 1 Ur Squamous Epith Cells 2 Urine Bacteria Mod H Hyaline Casts 3-5 H Assessment & Plan - Assessment and Plan (Free Text) Assessment: 72F with possible sepsis and DKA, POD#16 s/p left femoral-popliteal bypass with saphenous vein graft, healing well Plan: Sepsis and altered mental status unlikely due to surgical wound, which is healing well with good distal perfusion No indication for surgical intervention Cover incision with dry island dressings daily Management per primary and ICU team For any further questions or concerns, reach out to the surgery team Discussed with DR. Lam, who agrees with above Barbara Singh, PGY2
--- NOTE | 2018-04-18 19:13 | CP.PCM.CON ---
<Tommy Riggins - Last Filed: 04/18/18 19:07> History of Present Illness - History of Present Illness History of Present Illness: ICU Consult Note Tommy Riggins, PGY-3 IM This is a 72 yo F with PMH of PVD s/p multiple endovascular stent placements to left iliac, SFA and popliteal, DM, HTN, hypercholesterolemia, right BKA, bipolar depression disorder with multiple psychiatric admissions, who presented to [facility] from retirement for AMS. HPI/ROS/PE limited due to unresponsive and intubated state of patient. Found unresponsive and labored breathing at retirement, O2 sat 91%, improved to 95% when bagged by EMS, but remained unresponsive, so intubated in ED. Also developed hypotensive episode requiring pressor support with Levophed. CODE sepsis called. Labs suggestive also of DKA with anion gap glucose > 500 in DM pt. Remains unresponsive upon arrival to ICU. Recently s/p Fem-pop bypass on 04/02 by Vascular surgery. Site has small serosanguinous drainage at portion proximal to groin, no appreciable pus/erythema/fluctuance along any portion of surgical site. PMH: as above PSH: as above Fam HX: unobtainable Soc Hx: per prior charting, no tobacco/alcohol/illicits PMD: Dr. Pink Review of Systems - Review of Systems Systems not reviewed;Unavailable: Altered Mental Status, Intubated Past Patient History - Infectious Disease Hx of Infectious Diseases: None - Tetanus Immunizations Tetanus Immunization: Unknown - Past Medical History & Family History Past Medical History?: Yes - Past Social History Smoking Status: Former Smoker - CARDIAC Hx Congestive Heart Failure: Yes Hx Hypertension: Yes Hx Pacemaker: No - PULMONARY Hx Chronic Obstructive Pulmonary Disease (COPD): Yes - NEUROLOGICAL Hx Seizures: No - HEENT Hx HEENT Problems: Yes Hx Cataracts: Yes - RENAL Hx Chronic Kidney Disease: No - ENDOCRINE/METABOLIC Hx Endocrine Disorders: Yes Hx Diabetes Mellitus Type 2: Yes - HEMATOLOGICAL/ONCOLOGICAL Hx Human Immunodeficiency Virus (HIV): No - INTEGUMENTARY Hx Dermatological Problems: No Other/Comment: pvd - MUSCULOSKELETAL/RHEUMATOLOGICAL Hx Musculoskeletal Disorders: No Hx Falls: No - GASTROINTESTINAL Hx Gastrointestinal Disorders: No - GENITOURINARY/GYNECOLOGICAL Hx Sexually Transmitted Disorders: No - PSYCHIATRIC Hx Anxiety: Yes Hx Bipolar Disorder: Yes Hx Depression: Yes Hx Substance Use: No - SURGICAL HISTORY Hx Surgeries: Yes Hx Femoral-Popliteal Bypass Graft: Yes Other/Comment: right BKA. left leg femoropopliteal sx - ANESTHESIA Hx Anesthesia: Yes Hx Anesthesia Reactions: No Hx Malignant Hyperthermia: No Has any member of the family had a problem w/ anesthesia?: No Meds Allergies/Adverse Reactions: Allergies Allergy/AdvReac Type Severity Reaction Status Date / Time Penicillins Allergy Verified 04/18/18 11:52 aminothiols Allergy Mild RASH Uncoded 04/18/18 09:31 CONTRAST AdvReac Intermediate "SPACED Uncoded 04/18/18 09:31 OUT" - Medications Medications: Current Medications Norepinephrine Bitartrate 4 mg (/ Sodium Chloride) 254 mls @ 15.24 mls/hr IV .[id number] PRN; Protocol; 4 MCG/MIN PRN Reason: TITRATE PER MD ORDER Last Titration: 04/18/18 18:22 Dose: 3 mcg/min, 11.43 mls/hr Insulin Human Regular 100 unit (/ Sodium Chloride) 100 mls @ 5 mls/hr IV .Q20H XAVIER PRN Reason: Protocol Last Titration: 04/18/18 18:22 Dose: 2 units/hr, 2 mls/hr Potassium Chloride 20 meq/ (Sodium Chloride) 1,010 mls @ 150 mls/hr IV .[id number] XAVIER Last Admin: 04/18/18 15:56 Dose: 150 mls/hr Ceftriaxone Sodium 1 gm/ (Sodium Chloride) 100 mls @ 200 mls/hr IVPB Q24H XAVIER PRN Reason: Protocol Last Admin: 04/18/18 17:31 Dose: 200 mls/hr Potassium Chloride (Potassium Chloride 20 Meq/100 Ml) 20 meq in 100 mls @ 50 mls/hr IVPB Q3H XAVIER Stop: 04/19/18 02:29 Last Admin: 04/18/18 17:32 Dose: 50 mls/hr Physical Exam - Constitutional Appears: Chronically Ill, Other (intubated, unresponsive) - Head Exam Head Exam: ATRAUMATIC, NORMAL INSPECTION - Eye Exam Eye Exam: absent: Conjunctival injection, Scleral icterus Pupil Exam: absent: Fixed, Irregular - ENT Exam ENT Exam: Mucous Membranes Moist Additional comments: ETT in place - Neck Exam Neck exam: Positive for: Normal Inspection. Negative for: Lymphadenopathy - Respiratory Exam Respiratory Exam: Decreased Breath Sounds (mild decreased breath sounds in all falcon), Rhonchi (mild ronchi at bases bilaterally). absent: Rales, Wheezes Additional comments: intubated and on mechanical ventilator - Cardiovascular Exam Cardiovascular Exam: REGULAR RHYTHM, RRR, +S1, +S2. absent: Bradycardia, Tachycardia, Irregular Rhythm, JVD, +S4 - GI/Abdominal Exam GI & Abdominal Exam: Normal Bowel Sounds, Soft. absent: Diminished Bowel Sounds , Distended, Firm, Hyperactive Bowel Sounds, Hypoactive Bowel Sounds, Rigid - Extremities Exam Additional comments: Right BKA, healed stump without ulceration or bleeding LLE: fem-pop healing surgical scar with mild serosanguinous discharge at proximal portion, but remains well-healing throughout, no pus expressed, no erythema/fluctuance appreciated at any site, faintly palpable dorsalis pedis pulse - Neurological Exam Additional comments: unresponsive, intubated but not sedated withdrawal from noxious physical stimuli GCS 6 ([id number]) - Skin Skin Exam: Dry, Intact, Normal Color, Warm Additional comments: except as documented in extremities exam Results - Vital Signs Recent Vital Signs: Last Vital Signs Temp 99.6 F 04/18/18 16:00 Pulse 99 H 04/18/18 18:57 Resp 20 04/18/18 18:57 BP 98/68 L 04/18/18 18:57 Pulse Ox 96 04/18/18 19:05 - Labs Result Diagrams: 04/18/18 09:50 04/18/18 14:26 Labs: Laboratory Results - last 24 hr 04/18/18 04/18/18 04/18/18 09:45 09:50 09:50 WBC 13.9 H RBC 5.65 H Hgb 15.3 D Hct 48.0 H MCV 85.0 MCH 27.1 MCHC 31.9 L RDW 17.0 H Plt Count 255 MPV 11.0 Neut % (Auto) 91.4 H Lymph % (Auto) 4.8 L George % (Auto) 3.6 Eos % (Auto) 0.0 Baso % (Auto) 0.2 Neut # (Auto) 12.7 H Lymph # (Auto) 0.7 L George # (Auto) 0.5 Eos # (Auto) 0.0 Baso # (Auto) 0.0 Neutrophils % (Manual) 95 H Lymphocytes % (Manual) 4 L Monocytes % (Manual) 1 Platelet Estimate Normal Polychromasia Slight Hypochromasia (manual) Slight Anisocytosis (manual) Slight PT 14.3 H INR 1.3 APTT 33 Puncture Site pCO2 pO2 33 HCO3 ABG pH ABG Total CO2 ABG O2 Saturation ABG Base Excess Perez Test ABG Potassium VBG pH 7.28 L VBG pCO2 36 L VBG HCO3 16.7 VBG Total CO2 18.0 L VBG O2 Sat (Calc) 57.6 VBG Base Excess -9.0 L VBG Potassium 4.2 A-a O2 Difference Respiratory Index Sodium 152.0 H Chloride 110.0 H Glucose 546 H* D Lactate 6.3 H* Vent Mode Mechanical Rate FiO2 100.0 Tidal Volume PEEP 5 Crit Value Called To Er nurse patt Crit Value Called By Ivy rt Crit Value Read Back Y Blood Gas Notified Time 954 Potassium Carbon Dioxide Anion Gap BUN Creatinine Est GFR ( Amer) Est GFR (Non-Af Amer) Random Glucose Lactic Acid Calcium Total Bilirubin AST ALT Alkaline Phosphatase Total Protein Albumin Globulin Albumin/Globulin Ratio Arterial Blood Potassium Venous Blood Potassium 4.2 Urine Color Urine Clarity Urine pH Ur Specific [place] Urine Protein Urine Glucose (UA) Urine Ketones Urine Blood Urine Nitrate Urine Bilirubin Urine Urobilinogen Ur Leukocyte Esterase Urine WBC (Auto) Urine RBC (Auto) Ur Squamous Epith Cells Urine Bacteria Hyaline Casts 04/18/18 04/18/18 04/18/18 09:50 10:02 14:01 WBC RBC Hgb Hct MCV MCH MCHC RDW Plt Count MPV Neut % (Auto) Lymph % (Auto) George % (Auto) Eos % (Auto) Baso % (Auto) Neut # (Auto) Lymph # (Auto) George # (Auto) Eos # (Auto) Baso # (Auto) Neutrophils % (Manual) Lymphocytes % (Manual) Monocytes % (Manual) Platelet Estimate Polychromasia Hypochromasia (manual) Anisocytosis (manual) PT INR APTT Puncture Site Rba pCO2 29 L pO2 236 H HCO3 18.6 L ABG pH 7.35 ABG Total CO2 16.9 L ABG O2 Saturation 99.5 H ABG Base Excess -8.2 L Perez Test Na ABG Potassium 2.5 L* VBG pH VBG pCO2 VBG HCO3 VBG Total CO2 VBG O2 Sat (Calc) VBG Base Excess VBG Potassium A-a O2 Difference 441.0 Respiratory Index 1.9 Sodium 154 H 154.0 H Chloride 113 H 125.0 H Glucose 256 H Lactate 2.2 H Vent Mode Prvc Mechanical Rate 14 FiO2 100.0 Tidal Volume 500 PEEP 5 Crit Value Called To Crit Value Called By Hank ricardo,dry wall finisher Crit Value Read Back Y Blood Gas Notified Time 1410 Potassium 4.1 Carbon Dioxide 16 L Anion Gap 30 H BUN 78 H Creatinine 3.7 H Est GFR ( Amer) 15 Est GFR (Non-Af Amer) 12 Random Glucose 532 H* D Lactic Acid Calcium 9.5 Total Bilirubin 0.9 AST 23 ALT 17 Alkaline Phosphatase 110 Total Protein 7.0 Albumin 3.9 Globulin 3.1 Albumin/Globulin Ratio 1.2 Arterial Blood Potassium 2.5 L* Venous Blood Potassium Urine Color Andra Urine Clarity Hazy Urine pH 7.0 Ur Specific [place] 1.015 Urine Protein 1+ H Urine Glucose (UA) Normal Urine Ketones Trace Urine Blood Negative Urine Nitrate Negative Urine Bilirubin Negative Urine Urobilinogen 2.0 H Ur Leukocyte Esterase 3+ H Urine WBC (Auto) 72 H Urine RBC (Auto) 1 Ur Squamous Epith Cells 2 Urine Bacteria Mod H Hyaline Casts 3-5 H 04/18/18 04/18/18 14:26 16:08 WBC RBC Hgb Hct MCV MCH MCHC RDW Plt Count MPV Neut % (Auto) Lymph % (Auto) George % (Auto) Eos % (Auto) Baso % (Auto) Neut # (Auto) Lymph # (Auto) George # (Auto) Eos # (Auto) Baso # (Auto) Neutrophils % (Manual) Lymphocytes % (Manual) Monocytes % (Manual) Platelet Estimate Polychromasia Hypochromasia (manual) Anisocytosis (manual) PT INR APTT Puncture Site pCO2 pO2 HCO3 ABG pH ABG Total CO2 ABG O2 Saturation ABG Base Excess Perez Test ABG Potassium VBG pH VBG pCO2 VBG HCO3 VBG Total CO2 VBG O2 Sat (Calc) VBG Base Excess VBG Potassium A-a O2 Difference Respiratory Index Sodium Chloride Glucose Lactate Vent Mode Mechanical Rate FiO2 Tidal Volume PEEP Crit Value Called To Crit Value Called By Crit Value Read Back Blood Gas Notified Time Potassium 2.8 L Carbon Dioxide Anion Gap BUN Creatinine Est GFR ( Amer) Est GFR (Non-Af Amer) Random Glucose Lactic Acid 2.0 Calcium Total Bilirubin AST ALT Alkaline Phosphatase Total Protein Albumin Globulin Albumin/Globulin Ratio Arterial Blood Potassium Venous Blood Potassium Urine Color Urine Clarity Urine pH Ur Specific [place] Urine Protein Urine Glucose (UA) Urine Ketones Urine Blood Urine Nitrate Urine Bilirubin Urine Urobilinogen Ur Leukocyte Esterase Urine WBC (Auto) Urine RBC (Auto) Ur Squamous Epith Cells Urine Bacteria Hyaline Casts Assessment & Plan - Assessment and Plan (Free Text) Assessment: This is a 72 yo F with PMH of PVD s/p multiple endovascular stent placements to left iliac, SFA and popliteal, DM, HTN, hypercholesterolemia, right BKA, bipolar depression disorder with multiple psychiatric admissions, who presented to [facility] from retirement for AMS. Concerning for septic process +/ - DKA. Plan: Neuro: -unresponsive, not sedated -maintain normothermia -aspiration and seizure precautions, likely unable to protect airway in this state -Head CT negative for acute process Cardio: -hypotensive, requiring pressor support with Levophed in ED, continue, maintain MAP > 65 -distributive shock from sepsis vs dehydration process 2/2 DKA, may be multifactorial -Cardio consulted, appreciate all recs -Heparin 5000 units SC q12 for DVT ppx Pulm: -intubated and ventilated, not sedated -needs for airway protection given mental status -ABG pending, will adjust vent settings accordingly -ABG and CXR repeat in AM, f/u -Aspiration precautions, VAP bundle, Head of bed to 30 degrees -Pulm consulted, appreciate their recs GI: -NPO -INR 1.3, possible early onset liver dysfunction 2/2 sepsis, continue to trend LFTs and Coags Renal: -severe TAMEKA/ARF, likely 2/2 septic process -aggressive K repletion given insulin drip for presumed DKA Endo: -Glucose > 500 with anion gap 25, highly concerning for DKA in setting of DM pt -Insulin drip, to convert to long-acting after gap closes -BMP q4 -Endo consulted, appreciate their recs ID: -severe sepsis with end-organ dysfunction (TAMEKA), lactate of 6.3 -ID consulted, appreciate all recs -hx unspecified penicillin allergy, but has received several doses of Ancef within last year, so safe for Rocephin -Blood and urine cx pending, UA suggestive of UTI (poss sepsis source) Heme: -hgb 15.3, no signs acute bleeding at this time -likely element of hemoconcentration -trend CBCs -Heparin SC for DVT ppx Dispo: ICU, intubate and unresponsive, not sedated, Sepsis vs DKA etiology, possibly both FEN: NPO, NS 150cc/hr with 20 mEq KCl per bag Access: TLC, ETT, Peripheral IV Consults: ID, Cardio, Endo, Pulm, ICU Ppx: Heparin SC for DVT ppx Seen, reviewed, discussed with attending, Dr. Ha, <Ernie Ha - Last Filed: 04/19/18 08:40> Meds - Medications Medications: Current Medications Acetaminophen (Tylenol 650 Mg Supp) 650 mg WI Q6 PRN PRN Reason: for temp 101 and above Last Admin: 04/18/18 21:48 Dose: 650 mg Heparin Sodium (Porcine) (Heparin) 5,000 units SC Q12H XAVIER Last Admin: 04/19/18 07:41 Dose: 5,000 units Norepinephrine Bitartrate 4 mg (/ Sodium Chloride) 254 mls @ 15.24 mls/hr IV .[id number] PRN; Protocol; 4 MCG/MIN PRN Reason: TITRATE PER MD ORDER Last Admin: 04/19/18 07:25 Dose: 3 mcg/min, 11.43 mls/hr Insulin Human Regular 100 unit (/ Sodium Chloride) 100 mls @ 5 mls/hr IV .Q20H XAVIER PRN Reason: Protocol Last Titration: 04/19/18 05:34 Dose: 2 units/hr, 2 mls/hr Ceftriaxone Sodium 1 gm/ (Sodium Chloride) 100 mls @ 200 mls/hr IVPB Q24H XAVIER PRN Reason: Protocol Last Admin: 04/18/18 17:31 Dose: 200 mls/hr Potassium Chloride/Dextrose (Potassium Chl 20 Meq In D5w) 1,000 mls @ 100 mls/ hr IV .Q10H XAVIER Results - Vital Signs Recent Vital Signs: Last Vital Signs Temp 100.6 F H 04/19/18 04:00 Pulse 95 H 04/19/18 07:25 Resp 18 04/19/18 07:25 BP 91/55 L 04/19/18 07:25 Pulse Ox 100 04/19/18 07:25 - Labs Result Diagrams: 04/19/18 06:22 04/19/18 06:22 Labs: Laboratory Results - last 24 hr 04/18/18 04/18/18 04/18/18 09:45 09:50 09:50 WBC 13.9 H RBC 5.65 H Hgb 15.3 D Hct 48.0 H MCV 85.0 MCH 27.1 MCHC 31.9 L RDW 17.0 H Plt Count 255 MPV 11.0 Neut % (Auto) 91.4 H Lymph % (Auto) 4.8 L George % (Auto) 3.6 Eos % (Auto) 0.0 Baso % (Auto) 0.2 Neut # (Auto) 12.7 H Lymph # (Auto) 0.7 L George # (Auto) 0.5 Eos # (Auto) 0.0 Baso # (Auto) 0.0 Neutrophils % (Manual) 95 H Lymphocytes % (Manual) 4 L Monocytes % (Manual) 1 Platelet Estimate Normal Polychromasia Slight Hypochromasia (manual) Slight Anisocytosis (manual) Slight PT 14.3 H INR 1.3 APTT 33 Puncture Site pCO2 pO2 33 HCO3 ABG pH ABG Total CO2 ABG O2 Saturation ABG Base Excess Perez Test ABG Potassium VBG pH 7.28 L VBG pCO2 36 L VBG HCO3 16.7 VBG Total CO2 18.0 L VBG O2 Sat (Calc) 57.6 VBG Base Excess -9.0 L VBG Potassium 4.2 A-a O2 Difference Respiratory Index Sodium 152.0 H Chloride 110.0 H Glucose 546 H* D Lactate 6.3 H* Vent Mode Mechanical Rate FiO2 100.0 Tidal Volume PEEP 5 Crit Value Called To Er nurse patt Crit Value Called By Ivy rt Crit Value Read Back Y Blood Gas Notified Time 954 Potassium Carbon Dioxide Anion Gap BUN Creatinine Est GFR ( Amer) Est GFR (Non-Af Amer) Random Glucose Lactic Acid Calcium Phosphorus Magnesium Total Bilirubin AST ALT Alkaline Phosphatase Total Protein Albumin Globulin Albumin/Globulin Ratio TSH 3rd Generation Arterial Blood Potassium Venous Blood Potassium 4.2 Urine Color Urine Clarity Urine pH Ur Specific [place] Urine Protein Urine Glucose (UA) Urine Ketones Urine Blood Urine Nitrate Urine Bilirubin Urine Urobilinogen Ur Leukocyte Esterase Urine WBC (Auto) Urine RBC (Auto) Ur Squamous Epith Cells Urine Bacteria Hyaline Casts 0804/18/18 04/18/18 09:50 10:02 14:01 WBC RBC Hgb Hct MCV MCH MCHC RDW Plt Count MPV Neut % (Auto) Lymph % (Auto) George % (Auto) Eos % (Auto) Baso % (Auto) Neut # (Auto) Lymph # (Auto) George # (Auto) Eos # (Auto) Baso # (Auto) Neutrophils % (Manual) Lymphocytes % (Manual) Monocytes % (Manual) Platelet Estimate Polychromasia Hypochromasia (manual) Anisocytosis (manual) PT INR APTT Puncture Site Rba pCO2 29 L pO2 236 H HCO3 18.6 L ABG pH 7.35 ABG Total CO2 16.9 L ABG O2 Saturation 99.5 H ABG Base Excess -8.2 L Perez Test Na ABG Potassium 2.5 L* VBG pH VBG pCO2 VBG HCO3 VBG Total CO2 VBG O2 Sat (Calc) VBG Base Excess VBG Potassium A-a O2 Difference 441.0 Respiratory Index 1.9 Sodium 154 H 154.0 H Chloride 113 H 125.0 H Glucose 256 H Lactate 2.2 H Vent Mode Prvc Mechanical Rate 14 FiO2 100.0 Tidal Volume 500 PEEP 5 Crit Value Called To Crit Value Called By Hank ricardo,dry wall finisher Crit Value Read Back Y Blood Gas Notified Time 1410 Potassium 4.1 Carbon Dioxide 16 L Anion Gap 30 H BUN 78 H Creatinine 3.7 H Est GFR ( Amer) 15 Est GFR (Non-Af Amer) 12 Random Glucose 532 H* D Lactic Acid Calcium 9.5 Phosphorus Magnesium Total Bilirubin 0.9 AST 23 ALT 17 Alkaline Phosphatase 110 Total Protein 7.0 Albumin 3.9 Globulin 3.1 Albumin/Globulin Ratio 1.2 TSH 3rd Generation Arterial Blood Potassium 2.5 L* Venous Blood Potassium Urine Color Andra Urine Clarity Hazy Urine pH 7.0 Ur Specific [place] 1.015 Urine Protein 1+ H Urine Glucose (UA) Normal Urine Ketones Trace Urine Blood Negative Urine Nitrate Negative Urine Bilirubin Negative Urine Urobilinogen 2.0 H Ur Leukocyte Esterase 3+ H Urine WBC (Auto) 72 H Urine RBC (Auto) 1 Ur Squamous Epith Cells 2 Urine Bacteria Mod H Hyaline Casts 3-5 H 04/18/18 04/18/18 04/19/18 14:26 16:08 06:22 WBC 13.2 H RBC 4.67 Hgb 12.8 D Hct 39.8 MCV 85.2 MCH 27.4 MCHC 32.1 L RDW 16.6 H Plt Count 171 MPV 11.3 Neut % (Auto) Lymph % (Auto) George % (Auto) Eos % (Auto) Baso % (Auto) Neut # (Auto) Lymph # (Auto) George # (Auto) Eos # (Auto) Baso # (Auto) Neutrophils % (Manual) Lymphocytes % (Manual) Monocytes % (Manual) Platelet Estimate Polychromasia Hypochromasia (manual) Anisocytosis (manual) PT INR APTT Puncture Site pCO2 pO2 HCO3 ABG pH ABG Total CO2 ABG O2 Saturation ABG Base Excess Perez Test ABG Potassium VBG pH VBG pCO2 VBG HCO3 VBG Total CO2 VBG O2 Sat (Calc) VBG Base Excess VBG Potassium A-a O2 Difference Respiratory Index Sodium Chloride Glucose Lactate Vent Mode Mechanical Rate FiO2 Tidal Volume PEEP Crit Value Called To Crit Value Called By Crit Value Read Back Blood Gas Notified Time Potassium 2.8 L Carbon Dioxide Anion Gap BUN Creatinine Est GFR ( Amer) Est GFR (Non-Af Amer) Random Glucose Lactic Acid 2.0 Calcium Phosphorus Magnesium Total Bilirubin AST ALT Alkaline Phosphatase Total Protein Albumin Globulin Albumin/Globulin Ratio TSH 3rd Generation Arterial Blood Potassium Venous Blood Potassium Urine Color Urine Clarity Urine pH Ur Specific [place] Urine Protein Urine Glucose (UA) Urine Ketones Urine Blood Urine Nitrate Urine Bilirubin Urine Urobilinogen Ur Leukocyte Esterase Urine WBC (Auto) Urine RBC (Auto) Ur Squamous Epith Cells Urine Bacteria Hyaline Casts 04/19/18 06:22 WBC RBC Hgb Hct MCV MCH MCHC RDW Plt Count MPV Neut % (Auto) Lymph % (Auto) George % (Auto) Eos % (Auto) Baso % (Auto) Neut # (Auto) Lymph # (Auto) George # (Auto) Eos # (Auto) Baso # (Auto) Neutrophils % (Manual) Lymphocytes % (Manual) Monocytes % (Manual) Platelet Estimate Polychromasia Hypochromasia (manual) Anisocytosis (manual) PT INR APTT Puncture Site pCO2 pO2 HCO3 ABG pH ABG Total CO2 ABG O2 Saturation ABG Base Excess Perez Test ABG Potassium VBG pH VBG pCO2 VBG HCO3 VBG Total CO2 VBG O2 Sat (Calc) VBG Base Excess VBG Potassium A-a O2 Difference Respiratory Index Sodium 162 H* Chloride 132 H Glucose Lactate Vent Mode Mechanical Rate FiO2 Tidal Volume PEEP Crit Value Called To Crit Value Called By Crit Value Read Back Blood Gas Notified Time Potassium 4.5 Carbon Dioxide 14 L Anion Gap 20 BUN 59 H Creatinine 2.2 H Est GFR ( Amer) 27 Est GFR (Non-Af Amer) 22 Random Glucose 161 H Lactic Acid Calcium 8.6 Phosphorus 2.9 Magnesium 2.2 Total Bilirubin 0.7 AST 14 D ALT 26 Alkaline Phosphatase 86 Total Protein 5.3 L Albumin 2.7 L D Globulin 2.6 Albumin/Globulin Ratio 1.0 TSH 3rd Generation 0.32 L Arterial Blood Potassium Venous Blood Potassium Urine Color Urine Clarity Urine pH Ur Specific [place] Urine Protein Urine Glucose (UA) Urine Ketones Urine Blood Urine Nitrate Urine Bilirubin Urine Urobilinogen Ur Leukocyte Esterase Urine WBC (Auto) Urine RBC (Auto) Ur Squamous Epith Cells Urine Bacteria Hyaline Casts Attending/Attestation - Attestation I have personally seen and examined this patient.: Yes I have fully participated in the care of the patient.: Yes I have reviewed all pertinent clinical information: Yes Notes (Text): 04/18/18 18:32 I have seen and examined the patient. Medical records, lab studies, and imaging were reviewed by me and a management plan was formulated on multidisciplinary rounds with resident Dr. Riggins. I agree with their documented assessment and plan. p/w urosepsis, leading to DKA with coma. intubated in ED, abx, insulin drip. Critical Care Time 35 minutes. Multi-disciplinary rounds were performed with house staff, nursing, speech therapy, respiratory therapy, pharmacy and nutrition with integrated input from the primary team/attending and other consulting services. The documented time is cumulative and includes review of patient data/exams/labs/chart review and examination of the patient on rounds and throughout the day; time is exclusive of any procedures or teaching time.
--- NOTE | 2018-04-18 21:39 | CP.PCM.CON ---
History of Present Illness - History of Present Illness History of Present Illness: reason for consultation: respiratory failure on ventilatory support 72-year-old female with history of diabetes, hypertension, right below-knee amputation, bipolar disorder, status post stent placement left iliac, SFA, was transferred from [facility] for shortness of breath and change in mental status. Patient was intubated in the emergency room for hypoxemia. Patient also became hypotensive and was started on pressors. Status post code sepsis. The patient intubated/intubated on ventilatory support Review of Systems - Review of Systems Systems not reviewed;Unavailable: Intubated Past Patient History - Infectious Disease Hx of Infectious Diseases: None - Tetanus Immunizations Tetanus Immunization: Unknown - Past Medical History & Family History Past Medical History?: Yes - Past Social History Smoking Status: Former Smoker - CARDIAC Hx Congestive Heart Failure: Yes Hx Hypertension: Yes Hx Pacemaker: No - PULMONARY Hx Chronic Obstructive Pulmonary Disease (COPD): Yes - NEUROLOGICAL Hx Seizures: No - HEENT Hx HEENT Problems: Yes Hx Cataracts: Yes - RENAL Hx Chronic Kidney Disease: No - ENDOCRINE/METABOLIC Hx Endocrine Disorders: Yes Hx Diabetes Mellitus Type 2: Yes - HEMATOLOGICAL/ONCOLOGICAL Hx Human Immunodeficiency Virus (HIV): No - INTEGUMENTARY Hx Dermatological Problems: No Other/Comment: pvd - MUSCULOSKELETAL/RHEUMATOLOGICAL Hx Musculoskeletal Disorders: No Hx Falls: No - GASTROINTESTINAL Hx Gastrointestinal Disorders: No - GENITOURINARY/GYNECOLOGICAL Hx Sexually Transmitted Disorders: No - PSYCHIATRIC Hx Anxiety: Yes Hx Bipolar Disorder: Yes Hx Depression: Yes Hx Substance Use: No - SURGICAL HISTORY Hx Surgeries: Yes Hx Femoral-Popliteal Bypass Graft: Yes Other/Comment: right BKA. left leg femoropopliteal sx - ANESTHESIA Hx Anesthesia: Yes Hx Anesthesia Reactions: No Hx Malignant Hyperthermia: No Has any member of the family had a problem w/ anesthesia?: No Meds Allergies/Adverse Reactions: Allergies Allergy/AdvReac Type Severity Reaction Status Date / Time Penicillins Allergy Verified 04/18/18 11:52 aminothiols Allergy Mild RASH Uncoded 04/18/18 09:31 CONTRAST AdvReac Intermediate "SPACED Uncoded 04/18/18 09:31 OUT" - Medications Medications: Current Medications Heparin Sodium (Porcine) (Heparin) 5,000 units SC Q12H [facility] Last Admin: 04/18/18 19:59 Dose: 5,000 units Norepinephrine Bitartrate 4 mg (/ Sodium Chloride) 254 mls @ 15.24 mls/hr IV .[id number] PRN; Protocol; 4 MCG/MIN PRN Reason: TITRATE PER MD ORDER Last Titration: 04/18/18 18:22 Dose: 3 mcg/min, 11.43 mls/hr Insulin Human Regular 100 unit (/ Sodium Chloride) 100 mls @ 5 mls/hr IV .Q20H [facility] PRN Reason: Protocol Last Titration: 04/18/18 20:08 Dose: 0 units/hr, 0 mls/hr Potassium Chloride 20 meq/ (Sodium Chloride) 1,010 mls @ 150 mls/hr IV .[id number] [facility] Last Admin: 04/18/18 15:56 Dose: 150 mls/hr Ceftriaxone Sodium 1 gm/ (Sodium Chloride) 100 mls @ 200 mls/hr IVPB Q24H [facility] PRN Reason: Protocol Last Admin: 04/18/18 17:31 Dose: 200 mls/hr Potassium Chloride (Potassium Chloride 20 Meq/100 Ml) 20 meq in 100 mls @ 50 mls/hr IVPB Q3H [facility] Stop: 04/19/18 02:29 Last Admin: 04/18/18 21:13 Dose: 50 mls/hr Physical Exam - Head Exam Head Exam: ATRAUMATIC, NORMOCEPHALIC - ENT Exam ENT Exam: Mucous Membranes Moist - Neck Exam Neck exam: Positive for: Normal Inspection - Respiratory Exam Respiratory Exam: Clear to Auscultation Bilateral - Cardiovascular Exam Cardiovascular Exam: REGULAR RHYTHM - GI/Abdominal Exam GI & Abdominal Exam: Normal Bowel Sounds Results - Vital Signs Recent Vital Signs: Last Vital Signs Temp 99.6 F 04/18/18 16:00 Pulse 99 H 04/18/18 19:00 Resp 21 04/18/18 19:00 BP 98/68 L 04/18/18 18:57 Pulse Ox 96 04/18/18 19:07 - Labs Result Diagrams: 04/18/18 09:50 04/18/18 14:26 Labs: Laboratory Results - last 24 hr 04/18/18 04/18/18 04/18/18 09:45 09:50 09:50 WBC 13.9 H RBC 5.65 H Hgb 15.3 D Hct 48.0 H MCV 85.0 MCH 27.1 MCHC 31.9 L RDW 17.0 H Plt Count 255 MPV 11.0 Neut % (Auto) 91.4 H Lymph % (Auto) 4.8 L [place] % (Auto) 3.6 Eos % (Auto) 0.0 Baso % (Auto) 0.2 Neut # (Auto) 12.7 H Lymph # (Auto) 0.7 L [place] # (Auto) 0.5 Eos # (Auto) 0.0 Baso # (Auto) 0.0 Neutrophils % (Manual) 95 H Lymphocytes % (Manual) 4 L Monocytes % (Manual) 1 Platelet Estimate Normal Polychromasia Slight Hypochromasia (manual) Slight Anisocytosis (manual) Slight PT 14.3 H INR 1.3 APTT 33 Puncture Site pCO2 pO2 33 HCO3 ABG pH ABG Total CO2 ABG O2 Saturation ABG Base Excess Perez Test ABG Potassium VBG pH 7.28 L VBG pCO2 36 L VBG HCO3 16.7 VBG Total CO2 18.0 L VBG O2 Sat (Calc) 57.6 VBG Base Excess -9.0 L VBG Potassium 4.2 A-a O2 Difference Respiratory Index Sodium 152.0 H Chloride 110.0 H Glucose 546 H* D Lactate 6.3 H* Vent Mode Mechanical Rate FiO2 100.0 Tidal Volume PEEP 5 Crit Value Called To Er nurse patt Crit Value Called By Ivy rt Crit Value Read Back Y Blood Gas Notified Time 954 Potassium Carbon Dioxide Anion Gap BUN Creatinine Est GFR ( Amer) Est GFR (Non-Af Amer) Random Glucose Lactic Acid Calcium Total Bilirubin AST ALT Alkaline Phosphatase Total Protein Albumin Globulin Albumin/Globulin Ratio Arterial Blood Potassium Venous Blood Potassium 4.2 Urine Color Urine Clarity Urine pH Ur Specific [place] Urine Protein Urine Glucose (UA) Urine Ketones Urine Blood Urine Nitrate Urine Bilirubin Urine Urobilinogen Ur Leukocyte Esterase Urine WBC (Auto) Urine RBC (Auto) Ur Squamous Epith Cells Urine Bacteria Hyaline Casts 04/18/18 04/18/18 04/18/18 09:50 10:02 14:01 WBC RBC Hgb Hct MCV MCH MCHC RDW Plt Count MPV Neut % (Auto) Lymph % (Auto) [place] % (Auto) Eos % (Auto) Baso % (Auto) Neut # (Auto) Lymph # (Auto) [place] # (Auto) Eos # (Auto) Baso # (Auto) Neutrophils % (Manual) Lymphocytes % (Manual) Monocytes % (Manual) Platelet Estimate Polychromasia Hypochromasia (manual) Anisocytosis (manual) PT INR APTT Puncture Site Rba pCO2 29 L pO2 236 H HCO3 18.6 L ABG pH 7.35 ABG Total CO2 16.9 L ABG O2 Saturation 99.5 H ABG Base Excess -8.2 L Perez Test Na ABG Potassium 2.5 L* VBG pH VBG pCO2 VBG HCO3 VBG Total CO2 VBG O2 Sat (Calc) VBG Base Excess VBG Potassium A-a O2 Difference 441.0 Respiratory Index 1.9 Sodium 154 H 154.0 H Chloride 113 H 125.0 H Glucose 256 H Lactate 2.2 H Vent Mode Prvc Mechanical Rate 14 FiO2 100.0 Tidal Volume 500 PEEP 5 Crit Value Called To Crit Value Called By Hank ricardo,rail car painter/sandblaster Crit Value Read Back Y Blood Gas Notified Time 1410 Potassium 4.1 Carbon Dioxide 16 L Anion Gap 30 H BUN 78 H Creatinine 3.7 H Est GFR ( Amer) 15 Est GFR (Non-Af Amer) 12 Random Glucose 532 H* D Lactic Acid Calcium 9.5 Total Bilirubin 0.9 AST 23 ALT 17 Alkaline Phosphatase 110 Total Protein 7.0 Albumin 3.9 Globulin 3.1 Albumin/Globulin Ratio 1.2 Arterial Blood Potassium 2.5 L* Venous Blood Potassium Urine Color Andra Urine Clarity Hazy Urine pH 7.0 Ur Specific [place] 1.015 Urine Protein 1+ H Urine Glucose (UA) Normal Urine Ketones Trace Urine Blood Negative Urine Nitrate Negative Urine Bilirubin Negative Urine Urobilinogen 2.0 H Ur Leukocyte Esterase 3+ H Urine WBC (Auto) 72 H Urine RBC (Auto) 1 Ur Squamous Epith Cells 2 Urine Bacteria Mod H Hyaline Casts 3-5 H 04/18/18 04/18/18 14:26 16:08 WBC RBC Hgb Hct MCV MCH MCHC RDW Plt Count MPV Neut % (Auto) Lymph % (Auto) [place] % (Auto) Eos % (Auto) Baso % (Auto) Neut # (Auto) Lymph # (Auto) [place] # (Auto) Eos # (Auto) Baso # (Auto) Neutrophils % (Manual) Lymphocytes % (Manual) Monocytes % (Manual) Platelet Estimate Polychromasia Hypochromasia (manual) Anisocytosis (manual) PT INR APTT Puncture Site pCO2 pO2 HCO3 ABG pH ABG Total CO2 ABG O2 Saturation ABG Base Excess Perez Test ABG Potassium VBG pH VBG pCO2 VBG HCO3 VBG Total CO2 VBG O2 Sat (Calc) VBG Base Excess VBG Potassium A-a O2 Difference Respiratory Index Sodium Chloride Glucose Lactate Vent Mode Mechanical Rate FiO2 Tidal Volume PEEP Crit Value Called To Crit Value Called By Crit Value Read Back Blood Gas Notified Time Potassium 2.8 L Carbon Dioxide Anion Gap BUN Creatinine Est GFR ( Amer) Est GFR (Non-Af Amer) Random Glucose Lactic Acid 2.0 Calcium Total Bilirubin AST ALT Alkaline Phosphatase Total Protein Albumin Globulin Albumin/Globulin Ratio Arterial Blood Potassium Venous Blood Potassium Urine Color Urine Clarity Urine pH Ur Specific [place] Urine Protein Urine Glucose (UA) Urine Ketones Urine Blood Urine Nitrate Urine Bilirubin Urine Urobilinogen Ur Leukocyte Esterase Urine WBC (Auto) Urine RBC (Auto) Ur Squamous Epith Cells Urine Bacteria Hyaline Casts Assessment & Plan (1) Acute respiratory failure with hypoxemia Status: Acute Comment: continue ventilatory support. IV antibiotics. Culture and sensitivity. IV fluid. last echocardiogram showed ejection fraction of 65% (2) Severe sepsis Status: Acute (3) CKD (chronic kidney disease) stage 3, GFR 30-59 ml/min Status: Acute (4) DM type 2 (diabetes mellitus, type 2) Status: Acute
[2018-04-19 06:32] LABS: HEMOGLOBIN 12.8 g/dL (11.0-16.0); MEAN CELL VOLUME 85.2 fL (81.0-99.0); MEAN CORPUSCULAR HEMOGLOBIN 27.4 pg (27.0-31.0); MEAN CORPUSCULAR HGB CONC 32.1 g/dL (33.0-37.0); MEAN PLATELET VOLUME 11.3 fL (7.2-11.7); RBC 4.67 Mil/uL (3.80-5.20); RED CELL DISTRIBUTION WIDTH 16.6 % (11.5-14.5); WHITE BLOOD COUNT 13.2 K/uL (4.8-10.8)
--- NOTE | 2018-04-19 06:32 | CON ---
Copied To: Kristin Arredondo MD Attending MD: Kristin Arredondo MD DATE: 04/18/2018 ENDOCRINOLOGY CONSULTATION LOCATION: ICU room 12. HISTORY OF PRESENT ILLNESS: This is a 72-year-old female with known history of type 2 insulin-requiring diabetes and significant vasculopathy and was transferred here from the [facility] with progressive shortness of breath and supervening acute respiratory failure with marked hypoxemia and was intubated in the emergency room and is now being referred for diabetic evaluation because of concomitant diabetic ketoacidosis with septicemia. PAST MEDICAL HISTORY: As mentioned above, history of type 2 insulin-requiring diabetes on a premixed insulin regimen being given, Humulin 70/30 at 22 units once daily in the evening as noted with regular insulin coverage given 4 times daily as ordered, history of hypertension and dyslipidemia, history of coronary artery disease with previous coronary angioplasty procedures, history of peripheral arterial disease and vasculopathy with recent stent placement in the left iliac artery as noted, history of a right below-knee amputation with underlying peripheral arterial vasculopathy, history of generalized anxiety and depression on psychotropic medications, history of chronic obstructive lung disease from previous history of nicotine dependence, also previous admissions for congestive heart failure as noted. FAMILY HISTORY: Positive for hypertension and heart disease. SOCIAL HISTORY: The patient has a supportive family and has previous history of smoking. REVIEW OF SYSTEMS: Not possible at this time, but the chart has been reviewed in detail from the banking consultant's notes and management have also been reviewed in detail. The patient is unresponsive and intubated at this time. PHYSICAL EXAMINATION: GENERAL: This is an average-built female, who is currently unresponsive and endotracheally intubated. VITAL SIGNS: Blood pressure of 80 systolic, on IV Levophed infusion; temperature 98; respirations as per ventilator parameters. HEENT: Head normocephalic. Eyes: Anicteric with pink conjunctivae. Funduscopy not possible at this time. Ears, nose, and throat, otherwise normal. NECK: Supple. Thyroid gland is normal size. No carotid bruits or any cervical adenopathy. CARDIOPULMONARY: Adynamic precordium. S1 and S2 are rapid and regular. LUNGS: Shows scattered rhonchi. ABDOMEN: Flat, soft, with positive bowel sounds. EXTREMITIES: The right below-knee amputation stump is healed. The pulses in the left lower extremity are diminished as noted. LABORATORY DATA: WBC 13.9, hemoglobin of 15, hematocrit of 48, MCV 85, and platelets 255. The chemistries showed the BUN of 78, sodium 154, potassium 4.1, chloride 113, CO2 is 16, glucose is 532, and creatinine is 3.7. ASSESSMENT: This is a 72-year-old female with uncontrolled and decompensated type 2 insulin-requiring diabetes, presenting here with hyperosmolar hyperglycemic state and concomitant metabolic acidosis with supervening lactic acidosis and underlying septicemia and presented here with acute respiratory failure with hypoxemia and currently endotracheally intubated and remains unresponsive at this time. PLAN OF MANAGEMENT: We will concur with the present intensive insulin therapy with an insulin drip infusion as given with hourly fingerstick glucose testing and we would recommend a low-dose algorithm of the DKA protocol as given. We will obtain serial chemistries and supplement accordingly as needed, and we will also continue the vigorous IV hydration with normal saline and potassium supplementation as given. We will obtain hemoglobin A1c with prior glycemic control and baseline thyroid function studies will be ordered. We will consider the addition of basal insulin once the insulin drip infusion is discontinued accordingly. We will follow. Kristin Arredondo MD
[2018-04-19 07:10] LABS: ALBUMIN 2.7 g/dL (3.5-5.0); CALCIUM 8.6 mg/dl (8.6-10.4)
[2018-04-19 08:48] LABS: ARTERIAL BLOOD GAS HCO3 17.2 mmol/L (21-28); ARTERIAL BLOOD GAS HEMOGLOBIN 10.9 g/dL (11.7-17.4); ARTERIAL BLOOD GAS O2 SAT 98.9 % (95-98); ARTERIAL BLOOD GAS PCO2 25 mm/Hg (35-45); ARTERIAL BLOOD GAS PH 7.36 (7.35-7.45); ARTERIAL BLOOD GAS PO2 170 mm/Hg (80-100); ARTERIAL BLOOD GAS TCO2 14.9 mmol/L (22-28)
[2018-04-19] MEDS: Potassium Ch 20mEq in D5W 1,000 ML IV SCH ×2 (08:55→17:06)
--- NOTE | 2018-04-19 10:12 | RAD ---
Chest x-ray single frontal view History: Intubated. Comparison: 04/18/2018 Findings: Endotracheal tube in stable position. Biapical pleural thickening with upper lobe granulomatous changes. Diffuse increased interstitial lung markings. Top normal heart size. Degenerative changes in the spine. Other lines and tubes in stable position. Impression: Endotracheal tube in stable position. Biapical pleural thickening with upper lobe granulomatous changes. Diffuse increased interstitial lung markings. Top normal heart size. Degenerative changes in the spine. Other lines and tubes in stable position.
--- NOTE | 2018-04-19 13:00 | PN ---
Copied To: Kristin Arredondo MD Attending MD: Kristin Arredondo MD DATE: 04/19/2018 ENDO FOLLOWUP NOTE LOCATION: In ICU room #12. SUBJECTIVE: This is a 72-year-old female with recent uncontrolled type 2 insulin-requiring diabetes, presenting here with acute respiratory failure and currently endotracheally intubated and is now being followed closely for metabolic management. Her glycemic levels are fluctuating, but much improved at this time and the latest glucose levels have ranged from 161 to 162 mg/dL. LABORATORY DATA: Her chemistries today shows a BUN of 59, sodium 162, potassium 4.5, chloride 132, CO2 is 14, glucose is 161, and creatinine is 2.2. ASSESSMENT: This is a 72-year-old female with uncontrolled and decompensated type 2 insulin-requiring diabetes, presenting here with sudden bouts of shortness of breath and supervening acute respiratory failure with eventual endotracheal intubation, and also had concomitant hyperosmolar hyperglycemic state with metabolic acidosis and concomitant septicemia/bacteremia as noted thereof. PLAN OF MANAGEMENT: We will continue with the vigorous IV hydration and concur with changing the IV fluids to D5W as given noted. We will also continue to give the intensive insulin therapy with an insulin drip infusion as given with fingerstick glucose monitoring as undertaken. We will observe glycemic fluctuations and as the CO2 is at least above 20 with closure of the anion gap, then we can switch over to more physiologic basal and bolus insulin drug combination as indicated. We will obtain serial chemistries and supplement accordingly as needed. We will follow. Kristin Arredondo MD
--- NOTE | 2018-04-19 13:12 | CP.PCM.CON ---
History of Present Illness - History of Present Illness History of Present Illness: CC hypotension HPI 72-year-old female with history of diabetes, hypertension, right below-knee amputation, bipolar disorder, status post stent placement left iliac, SFA, [facility] of [facility] and change in mental status. Patient was intubated in the emergency room for hypoxemia. Patient also became hypotensive and was started on pressors. Status post code sepsis. The patient intubated/intubated on ventilatory support Past Patient History - Infectious Disease Hx of Infectious Diseases: None - Tetanus Immunizations Tetanus Immunization: Unknown - Past Medical History & Family History Past Medical History?: Yes - Past Social History Smoking Status: Former Smoker - CARDIAC Hx Congestive Heart Failure: Yes Hx Hypertension: Yes Hx Pacemaker: No - PULMONARY Hx Chronic Obstructive Pulmonary Disease (COPD): Yes - NEUROLOGICAL Hx Seizures: No - HEENT Hx HEENT Problems: Yes Hx Cataracts: Yes - RENAL Hx Chronic Kidney Disease: No - ENDOCRINE/METABOLIC Hx Endocrine Disorders: Yes Hx Diabetes Mellitus Type 2: Yes - HEMATOLOGICAL/ONCOLOGICAL Hx Human Immunodeficiency Virus (HIV): No - INTEGUMENTARY Hx Dermatological Problems: No Other/Comment: pvd - MUSCULOSKELETAL/RHEUMATOLOGICAL Hx Musculoskeletal Disorders: No Hx Falls: No - GASTROINTESTINAL Hx Gastrointestinal Disorders: No - GENITOURINARY/GYNECOLOGICAL Hx Sexually Transmitted Disorders: No - PSYCHIATRIC Hx Anxiety: Yes Hx Bipolar Disorder: Yes Hx Depression: Yes Hx Substance Use: No - SURGICAL HISTORY Hx Surgeries: Yes Hx Femoral-Popliteal Bypass Graft: Yes Other/Comment: right BKA. left leg femoropopliteal sx - ANESTHESIA Hx Anesthesia: Yes Hx Anesthesia Reactions: No Hx Malignant Hyperthermia: No Has any member of the family had a problem w/ anesthesia?: No Meds Allergies/Adverse Reactions: Allergies Allergy/AdvReac Type Severity Reaction Status Date / Time Penicillins Allergy Verified 04/18/18 11:52 aminothiols Allergy Mild RASH Uncoded 04/18/18 09:31 CONTRAST AdvReac Intermediate "SPACED Uncoded 04/18/18 09:31 OUT" - Medications Medications: Current Medications Acetaminophen (Tylenol 650 Mg Supp) 650 mg DE Q6 PRN PRN Reason: for temp 101 and above Last Admin: 04/18/18 21:48 Dose: 650 mg Heparin Sodium (Porcine) (Heparin) 5,000 units SC Q12H [facility] Last Admin: 04/19/18 07:41 Dose: 5,000 units Norepinephrine Bitartrate 4 mg (/ Sodium Chloride) 254 mls @ 15.24 mls/hr IV .[id number] PRN; Protocol; 4 MCG/MIN PRN Reason: TITRATE PER MD ORDER Last Admin: 04/19/18 07:25 Dose: 3 mcg/min, 11.43 mls/hr Insulin Human Regular 100 unit (/ Sodium Chloride) 100 mls @ 5 mls/hr IV .Q20H [facility] PRN Reason: Protocol Last Titration: 04/19/18 05:34 Dose: 2 units/hr, 2 mls/hr Ceftriaxone Sodium 1 gm/ (Sodium Chloride) 100 mls @ 200 mls/hr IVPB Q24H [facility] PRN Reason: Protocol Last Admin: 04/18/18 17:31 Dose: 200 mls/hr Potassium Chloride/Dextrose (Potassium Chl 20 Meq In D5w) 1,000 mls @ 100 mls/ hr IV .Q10H [facility] Last Admin: 04/19/18 08:55 Dose: 100 mls/hr Results - Vital Signs Recent Vital Signs: Last Vital Signs Temp 100.6 F H 04/19/18 04:00 Pulse 95 H 04/19/18 07:25 Resp 18 04/19/18 07:25 BP 91/55 L 04/19/18 07:25 Pulse Ox 100 04/19/18 07:25 - Labs Result Diagrams: 04/19/18 06:22 04/19/18 12:44 Labs: Laboratory Results - last 24 hr 04/18/18 04/18/18 04/18/18 14:01 14:26 16:08 WBC RBC Hgb Hct MCV MCH MCHC RDW Plt Count MPV Puncture Site Rba pCO2 29 L pO2 236 H HCO3 18.6 L ABG pH 7.35 ABG Total CO2 16.9 L ABG O2 Saturation 99.5 H ABG Base Excess -8.2 L ABG Hemoglobin ABG Carboxyhemoglobin POC ABG HHb (Measured) ABG Methemoglobin Perez Test Na ABG Potassium 2.5 L* A-a O2 Difference 441.0 Respiratory Index 1.9 Hgb O2 Saturation Sodium 154.0 H Chloride 125.0 H Glucose 256 H Lactate 2.2 H Vent Mode Prvc Mechanical Rate 14 FiO2 100.0 Tidal Volume 500 PEEP 5 Crit Value Called To Crit Value Called By Hank ricardo,cnc field service engineer Crit Value Read Back Y Blood Gas Notified Time 1410 Potassium 2.8 L Carbon Dioxide Anion Gap BUN Creatinine Est GFR ( Amer) Est GFR (Non-Af Amer) Random Glucose Hemoglobin A1c Lactic Acid 2.0 Calcium Phosphorus Magnesium Total Bilirubin AST ALT Alkaline Phosphatase Total Protein Albumin Globulin Albumin/Globulin Ratio TSH 3rd Generation Arterial Blood Potassium 2.5 L* 04/19/18 04/19/18 04/19/18 04:00 06:22 06:22 WBC 13.2 H RBC 4.67 Hgb 12.8 D Hct 39.8 MCV 85.2 MCH 27.4 MCHC 32.1 L RDW 16.6 H Plt Count 171 MPV 11.3 Puncture Site pCO2 pO2 HCO3 ABG pH ABG Total CO2 ABG O2 Saturation ABG Base Excess ABG Hemoglobin ABG Carboxyhemoglobin POC ABG HHb (Measured) ABG Methemoglobin Perez Test ABG Potassium A-a O2 Difference Respiratory Index Hgb O2 Saturation Sodium 162 H* Chloride 132 H Glucose Lactate Vent Mode Mechanical Rate FiO2 Tidal Volume PEEP Crit Value Called To Crit Value Called By Crit Value Read Back Blood Gas Notified Time Potassium 4.5 Carbon Dioxide 14 L Anion Gap 20 BUN 59 H Creatinine 2.2 H Est GFR ( Amer) 27 Est GFR (Non-Af Amer) 22 Random Glucose 161 H Hemoglobin A1c 8.5 H Lactic Acid Calcium 8.6 Phosphorus 2.9 Magnesium 2.2 Total Bilirubin 0.7 AST 14 D ALT 26 Alkaline Phosphatase 86 Total Protein 5.3 L Albumin 2.7 L D Globulin 2.6 Albumin/Globulin Ratio 1.0 TSH 3rd Generation 0.32 L Arterial Blood Potassium 04/19/18 04/19/18 08:45 12:44 WBC RBC Hgb Hct MCV MCH MCHC RDW Plt Count MPV Puncture Site Rba pCO2 25 L pO2 170 H HCO3 17.2 L ABG pH 7.36 ABG Total CO2 14.9 L ABG O2 Saturation 98.9 H ABG Base Excess -9.9 L ABG Hemoglobin 10.9 L ABG Carboxyhemoglobin 0.9 POC ABG HHb (Measured) 1.1 ABG Methemoglobin 1.1 Perez Test Na ABG Potassium A-a O2 Difference 298.0 Respiratory Index 1.8 Hgb O2 Saturation 97.0 Sodium 159 H Chloride 131 H Glucose Lactate Vent Mode Prvc Mechanical Rate FiO2 70.0 Tidal Volume 500 PEEP 5 Crit Value Called To Crit Value Called By Crit Value Read Back Blood Gas Notified Time Potassium 3.7 Carbon Dioxide 20 L Anion Gap 12 BUN 51 H Creatinine 1.8 H Est GFR ( Amer) 34 Est GFR (Non-Af Amer) 28 Random Glucose 163 H Hemoglobin A1c Lactic Acid Calcium 9.0 Phosphorus Magnesium Total Bilirubin AST ALT Alkaline Phosphatase Total Protein Albumin Globulin Albumin/Globulin Ratio TSH 3rd Generation Arterial Blood Potassium Assessment & Plan - Assessment and Plan (Free Text) Assessment: Septic shock CAD PVD Acute respiratory failure Plan: Cont pressors septic work up Abtx as per ID - Date & Time Date: 04/18/18 Time: 18:00
--- NOTE | 2018-04-19 13:28 | CP.PCM.PN ---
Subjective - Date & Time of Evaluation Date of Evaluation: 04/19/18 Time of Evaluation: 13:20 Objective - Vital Signs/Intake and Output Vital Signs (last 24 hours): Temp Pulse Resp BP Pulse Ox 100.6 F H 95 H 18 91/55 L 100 04/19/18 04:00 04/19/18 07:25 04/19/18 07:25 04/19/18 07:25 04/19/18 07:25 Intake and Output: 04/19/18 04/19/18 06:59 18:59 Intake Total 2176.4 351.4 Output Total 735 Balance 1441.4 351.4 - Medications Medications: Current Medications Acetaminophen (Tylenol 650 Mg Supp) 650 mg [place] Q6 PRN PRN Reason: for temp 101 and above Last Admin: 04/18/18 21:48 Dose: 650 mg Heparin Sodium (Porcine) (Heparin) 5,000 units SC Q12H [facility] Last Admin: 04/19/18 07:41 Dose: 5,000 units Norepinephrine Bitartrate 4 mg (/ Sodium Chloride) 254 mls @ 15.24 mls/hr IV .[id number] PRN; Protocol; 4 MCG/MIN PRN Reason: TITRATE PER MD ORDER Last Admin: 04/19/18 07:25 Dose: 3 mcg/min, 11.43 mls/hr Insulin Human Regular 100 unit (/ Sodium Chloride) 100 mls @ 5 mls/hr IV .Q20H [facility] PRN Reason: Protocol Last Titration: 04/19/18 05:34 Dose: 2 units/hr, 2 mls/hr Ceftriaxone Sodium 1 gm/ (Sodium Chloride) 100 mls @ 200 mls/hr IVPB Q24H [facility] PRN Reason: Protocol Last Admin: 04/18/18 17:31 Dose: 200 mls/hr Potassium Chloride/Dextrose (Potassium Chl 20 Meq In D5w) 1,000 mls @ 100 mls/ hr IV .Q10H [facility] Last Admin: 04/19/18 08:55 Dose: 100 mls/hr - Labs Labs: 04/19/18 06:22 04/19/18 12:44 PT 14.3 SECONDS (9.7-12.2) H 04/18/18 09:50 INR 1.3 04/18/18 09:50 APTT 33 SECONDS (21-34) 04/18/18 09:50
--- NOTE | 2018-04-19 15:26 | CP.PCM.CON ---
History of Present Illness - History of Present Illness History of Present Illness: 72-year-old female with history of diabetes, hypertension, right below-knee amputation, bipolar disorder, status post stent placement left iliac, SFA, [facility] shortness of breath and change in mental status. Patient was intubated in the emergency room for hypoxemia. Patient also became hypotensive and was started on pressors. Status post code sepsis. The patient intubated/intubated on ventilatory support Currently extubated awake lethargic ID consulted for antibiotic management PMH: PVD s/p multple endovascular stent placement to L iliac, SFA and popliteal , DM type 2, HTN, bipolar depression do with multiple psychiatric admissions PSH: right BKA, right hip surgery, left femur sx, multiple angios FH- N/C Social hx- negative for ETOH, neg drugs , positive for smoking in past Review of Systems - Constitutional Constitutional: Malaise, Weakness - EENT Eyes: absent: As Per HPI, Blind Spots, Blurred Vision, Change in Vision, Decreased Night Vision, Diplopia, Discharge, Dry Eye, Exophthalmos, Floaters, Irritation, Itchy Eyes, Loss of Peripheral Vision, Pain, Photophobia, Requires Corrective Lenses, Sees Flashes, Spots in Vision, Tunnel Vision, Other Visual Disturbances, Loss of Vision, Other Ears: absent: As Per HPI, Decreased Hearing, Ear Discharge, Ear Pain, Tinnitus, Abnormal Hearing, Disequilibrium, Dizziness, Other Nose/Mouth/Throat: absent: As Per HPI, Epistaxis, Nasal Congestion, Nasal Discharge, Nasal Obstruction, Nasal Trauma, Nose Pain, Post Nasal Drip, Sinus Pain, Sinus Pressure, Bleeding Gums, Change in Voice, Dental Pain, Dry Mouth, Dysphagia, Halitosis, Hoarsness, Lip Swelling, Mouth Lesions, Mouth Pain, Odynophagia, Sore Throat, Throat Swelling, Tongue Swelling, Facial Pain, Neck Pain, Neck Mass, Other - Cardiovascular Cardiovascular: absent: As Per HPI, Acrocyanosis, Chest Pain, Chest Pain at Rest , Chest Pain with Activity, Claudication, Diaphoresis, Dyspnea, Dyspnea on Exertion, Edema, Irregular Heart Rhythm, Pain Radiating to Arm/Neck/Jaw, Leg Edema, Leg Ulcers, Lightheadedness, Orthopnea, Palpitations, Paroxysmal Nocturnal Dyspnea, Pedal Edema, Radiating Pain, Rapid Heart Rate, Slow Heart Rate, Syncope, Other - Respiratory Respiratory: absent: As Per HPI, Cough, Dyspnea, Hemoptysis, Dyspnea on Exertion , Wheezing, Snoring, Stridor, Pain on Inspiration, Chest Congestion, Excessive Mucous Production, Change in Mucous Color, Pain with Coughing, Other - Gastrointestinal Gastrointestinal: absent: As Per HPI, Abdominal Pain, Belching, Bloating, Change in Bowel Habits, Change in Stool Character, Coffee Ground Emesis, Constipation, Cramping, Diarrhea, Dyspepsia, Dysphagia, Early Satiety, Excessive Flatus, Fecal Incontinence, Heartburn, Hematemesis, Hematochezia, Loose Stools, Melena, Nausea, Odynophagia, Temesmus, Vomiting, Other - Genitourinary Genitourinary: Voiding Freq/Small Amts - Musculoskeletal Musculoskeletal: Muscle Cramps, Muscle Weakness, Myalgias - Neurological Neurological: absent: As Per HPI, Abnormal Gait, Abnormal Hearing, Abnormal Movements, Abnormal Speech, Behavioral Changes, Burning Sensations, Confusion, Convulsions, Disequilibrium, Dizziness, Numbness, Focal Weakness, Frequent Falls , Headaches, Lack of Coordination, Loss of Vision, Memory Loss, Paresthesias, Radicular Pain, Restless Legs, Sensory Deficit, Syncope, Tingling, Tremor, Vertigo, Weakness, Other Visual Disturbances, Other Past Patient History - Infectious Disease Hx of Infectious Diseases: None - Tetanus Immunizations Tetanus Immunization: Unknown - Past Medical History & Family History Past Medical History?: Yes - Past Social History Smoking Status: Former Smoker - CARDIAC Hx Congestive Heart Failure: Yes Hx Hypertension: Yes Hx Pacemaker: No - PULMONARY Hx Chronic Obstructive Pulmonary Disease (COPD): Yes - NEUROLOGICAL Hx Seizures: No - HEENT Hx HEENT Problems: Yes Hx Cataracts: Yes - RENAL Hx Chronic Kidney Disease: No - ENDOCRINE/METABOLIC Hx Endocrine Disorders: Yes Hx Diabetes Mellitus Type 2: Yes - HEMATOLOGICAL/ONCOLOGICAL Hx Human Immunodeficiency Virus (HIV): No - INTEGUMENTARY Hx Dermatological Problems: No Other/Comment: pvd - MUSCULOSKELETAL/RHEUMATOLOGICAL Hx Musculoskeletal Disorders: No Hx Falls: No - GASTROINTESTINAL Hx Gastrointestinal Disorders: No - GENITOURINARY/GYNECOLOGICAL Hx Sexually Transmitted Disorders: No - PSYCHIATRIC Hx Anxiety: Yes Hx Bipolar Disorder: Yes Hx Depression: Yes Hx Substance Use: No - SURGICAL HISTORY Hx Surgeries: Yes Hx Femoral-Popliteal Bypass Graft: Yes Other/Comment: right BKA. left leg femoropopliteal sx - ANESTHESIA Hx Anesthesia: Yes Hx Anesthesia Reactions: No Hx Malignant Hyperthermia: No Has any member of the family had a problem w/ anesthesia?: No Meds Allergies/Adverse Reactions: Allergies Allergy/AdvReac Type Severity Reaction Status Date / Time Penicillins Allergy Verified 04/18/18 11:52 aminothiols Allergy Mild RASH Uncoded 04/18/18 09:31 CONTRAST AdvReac Intermediate "SPACED Uncoded 04/18/18 09:31 OUT" - Medications Medications: Current Medications Acetaminophen (Tylenol 650 Mg Supp) 650 mg DE Q6 PRN PRN Reason: for temp 101 and above Last Admin: 04/18/18 21:48 Dose: 650 mg Heparin Sodium (Porcine) (Heparin) 5,000 units SC Q12H [facility] Last Admin: 04/19/18 07:41 Dose: 5,000 units Norepinephrine Bitartrate 4 mg (/ Sodium Chloride) 254 mls @ 15.24 mls/hr IV .[id number] PRN; Protocol; 4 MCG/MIN PRN Reason: TITRATE PER MD ORDER Last Titration: 04/19/18 14:00 Dose: 0 mcg/min, 0 mls/hr Insulin Human Regular 100 unit (/ Sodium Chloride) 100 mls @ 5 mls/hr IV .Q20H [facility] PRN Reason: Protocol Last Admin: 04/19/18 14:12 Dose: Not Given Ceftriaxone Sodium 1 gm/ (Sodium Chloride) 100 mls @ 200 mls/hr IVPB Q24H [facility] PRN Reason: Protocol Last Admin: 04/19/18 14:26 Dose: 200 mls/hr Potassium Chloride/Dextrose (Potassium Chl 20 Meq In D5w) 1,000 mls @ 100 mls/ hr IV .Q10H [facility] Last Admin: 04/19/18 08:55 Dose: 100 mls/hr Physical Exam - Constitutional Appears: No Acute Distress, Chronically Ill - Head Exam Head Exam: ATRAUMATIC, NORMOCEPHALIC - Eye Exam Eye Exam: PERRL. absent: Scleral icterus - ENT Exam ENT Exam: Mucous Membranes Dry - Neck Exam Neck exam: Negative for: Lymphadenopathy - Respiratory Exam Respiratory Exam: Decreased Breath Sounds - Cardiovascular Exam Cardiovascular Exam: REGULAR RHYTHM, +S1, +S2 - GI/Abdominal Exam GI & Abdominal Exam: Diminished Bowel Sounds, Soft. absent: Tenderness - Rectal Exam Rectal Exam: Deferred - Exam Exam: NORMAL INSPECTION - Extremities Exam Extremities exam: Negative for: calf tenderness, pedal pulses present Additional comments: right bka sith ok - Back Exam Back exam: absent: CVA tenderness (L), CVA tenderness (R) - Neurological Exam Neurological exam: Alert, Altered, CN II-XII Intact, Oriented x3, Reflexes Normal - Psychiatric Exam Psychiatric exam: Depressed - Skin Skin Exam: Dry Results - Vital Signs Recent Vital Signs: Last Vital Signs Temp 100.5 F H 04/19/18 12:00 Pulse 90 04/19/18 14:00 Resp 14 04/19/18 14:00 BP 135/66 04/19/18 13:57 Pulse Ox 98 04/19/18 14:00 - Labs Result Diagrams: 04/19/18 06:22 04/19/18 12:44 Labs: Laboratory Results - last 24 hr 04/18/18 04/19/18 04/19/18 16:08 04:00 06:22 WBC 13.2 H RBC 4.67 Hgb 12.8 D Hct 39.8 MCV 85.2 MCH 27.4 MCHC 32.1 L RDW 16.6 H Plt Count 171 MPV 11.3 Puncture Site pCO2 pO2 HCO3 ABG pH ABG Total CO2 ABG O2 Saturation ABG Base Excess ABG Hemoglobin ABG Carboxyhemoglobin POC ABG HHb (Measured) ABG Methemoglobin Perez Test A-a O2 Difference Respiratory Index Hgb O2 Saturation Vent Mode FiO2 Tidal Volume PEEP Sodium Potassium Chloride Carbon Dioxide Anion Gap BUN Creatinine Est GFR ( Amer) Est GFR (Non-Af Amer) Random Glucose Hemoglobin A1c 8.5 H Lactic Acid 2.0 Calcium Phosphorus Magnesium Total Bilirubin AST ALT Alkaline Phosphatase Total Protein Albumin Globulin Albumin/Globulin Ratio TSH 3rd Generation 04/19/18 04/19/18 04/19/18 06:22 08:45 12:44 WBC RBC Hgb Hct MCV MCH MCHC RDW Plt Count MPV Puncture Site Rba pCO2 25 L pO2 170 H HCO3 17.2 L ABG pH 7.36 ABG Total CO2 14.9 L ABG O2 Saturation 98.9 H ABG Base Excess -9.9 L ABG Hemoglobin 10.9 L ABG Carboxyhemoglobin 0.9 POC ABG HHb (Measured) 1.1 ABG Methemoglobin 1.1 Perez Test Na A-a O2 Difference 298.0 Respiratory Index 1.8 Hgb O2 Saturation 97.0 Vent Mode Prvc FiO2 70.0 Tidal Volume 500 PEEP 5 Sodium 162 H* 159 H Potassium 4.5 3.7 Chloride 132 H 131 H Carbon Dioxide 14 L 20 L Anion Gap 20 12 BUN 59 H 51 H Creatinine 2.2 H 1.8 H Est GFR ( Amer) 27 34 Est GFR (Non-Af Amer) 22 28 Random Glucose 161 H 163 H Hemoglobin A1c Lactic Acid Calcium 8.6 9.0 Phosphorus 2.9 Magnesium 2.2 Total Bilirubin 0.7 AST 14 D ALT 26 Alkaline Phosphatase 86 Total Protein 5.3 L Albumin 2.7 L D Globulin 2.6 Albumin/Globulin Ratio 1.0 TSH 3rd Generation 0.32 L Assessment & Plan (1) Acute respiratory failure with hypoxemia Status: Acute (2) Severe sepsis Status: Acute (3) Altered mental status Status: Acute (4) CKD (chronic kidney disease) stage 3, GFR 30-59 ml/min Status: Acute (5) DM type 2 (diabetes mellitus, type 2) Status: Acute (6) UTI (urinary tract infection) Status: Acute - Assessment and Plan (Free Text) Assessment: severe sepsis/ uti extuated now on IV antibiotics await urine c/s report consider eval
--- NOTE | 2018-04-19 16:47 | CP.CCUPN ---
CCU Subjective - Physician Review Events Since Last Encounter (Free Text): 04/19/18 16:52 alert and following commands, tolerating extubation. CCU Objective - Vital Signs / Intake & Output Vital Signs (Last 4 hours): Vital Signs Pulse Resp BP Pulse Ox 04/19/18 14:00 90 14 98 04/19/18 13:57 89 17 135/66 98 04/19/18 13:00 88 24 98 04/19/18 12:57 88 23 129/69 97 Intake and Output (Last 8hrs): Intake & Output 04/19/18 04/19/18 04/19/18 06:59 14:59 22:59 Intake Total 1417.2 879.2 Output Total 475 390 Balance 942.2 489.2 Weight 141 lb 6.4 oz Intake: IV 9 234 Intake, IV Amount 1408.2 645.2 Left PICC 1200 550 Left PICC distal 100 Right Antecubital 17 12 left upper arm picc 91.2 83.2 Output: Urine 475 390 Urethral (Chand) 475 390 Other: # Bowel Movements 1 - Physical Exam Head: Positive for: Atraumatic, Normocephalic Pupils: Positive for: PERRL Extroacular Muscles: Positive for: EOMI Conjunctiva: Positive for: Normal Mouth: Positive for: Moist Mucous Membranes Neck: Positive for: Normal Range of Motion Respiratory/Chest: Positive for: Clear to Auscultation, Good Air Exchange Cardiovascular: Positive for: Regular Rate and Rhythm, Normal S1, S2 Abdomen: Positive for: Normal Bowel Sounds. Negative for: Tenderness, Distention Upper Extremity: Positive for: Normal Inspection Lower Extremity: Positive for: Normal Inspection Neurological: Positive for: GCS=15, CN II-XII Intact Psychiatric: Positive for: Alert, Oriented x 3 - Medications Active Medications: Active Medications Generic Name Dose Route Start Last Admin Trade Name Freq PRN Reason Stop Dose Admin Acetaminophen 650 mg 04/18/18 21:38 04/18/18 21:48 Tylenol 650 Mg Supp PA 650 mg Q6 PRN Administration for temp 101 and above Heparin Sodium (Porcine) 5,000 units 04/18/18 19:30 04/19/18 07:41 Heparin SC 5,000 units Q12H [facility] Administration Norepinephrine Bitartrate 4 mg 254 mls @ 15.24 mls/hr 04/18/18 11:03 14:00 / Sodium Chloride IV 0 mcg/min .[id number] PRN 0 mls/hr TITRATE PER MD ORDER Titration Protocol 4 MCG/MIN Insulin Human Regular 100 unit 100 mls @ 5 mls/hr 04/18/18 12:46 04/19/18 14: 12 / Sodium Chloride IV Not Given .Q20H X[facility]IER Protocol Ceftriaxone Sodium 1 gm/ 100 mls @ 200 mls/hr 04/18/18 15:00 04/19/18 14:26 Sodium Chloride IVPB 200 mls/hr Q24H [facility] Administration Protocol Potassium Chloride/Dextrose 1,000 mls @ 100 mls/hr 04/19/18 08:00 04/19/18 08 :55 Potassium Chl 20 Meq In D5w IV 100 mls/hr .Q10H [facility] Administration - Patient Studies Lab Studies: Microbiology Studies 04/18/18 09:59 Blood Culture - Preliminary Blood NO GROWTH AFTER 24 HOURS 04/18/18 09:59 Blood Culture - Preliminary Blood NO GROWTH AFTER 24 HOURS 04/18/18 10:02 Urine Culture - Preliminary Urine,Chand Gram Negative Alonzo Lab Studies 04/19/18 04/19/18 04/19/18 Range/Units 12:44 08:45 06:22 WBC (4.8-10.8) K/uL RBC (3.80-5.20) Mil/uL Hgb (11.0-16.0) g/dL Hct (34.0-47.0) % MCV (81.0-99.0) fL MCH (27.0-31.0) pg MCHC (33.0-37.0) g/dL RDW (11.5-14.5) % Plt Count (130-400) K/uL MPV (7.2-11.7) fL Puncture Site Rba pCO2 25 L (35-45) mm/Hg pO2 170 H (80-100) mm/Hg HCO3 17.2 L (21-28) mmol/L ABG pH 7.36 (7.35-7.45) ABG Total CO2 14.9 L (22-28) mmol/L ABG O2 Saturation 98.9 H (95-98) % ABG Base Excess -9.9 L (-2.0-3.0) mmol/L ABG Hemoglobin 10.9 L (11.7-17.4) g/dL ABG Carboxyhemoglobin 0.9 (0.5-1.5) % POC ABG HHb (Measured) 1.1 (0.0-5.0) % ABG Methemoglobin 1.1 (0.0-3.0) % Perez Test Na A-a O2 Difference 298.0 mm/Hg Respiratory Index 1.8 Hgb O2 Saturation 97.0 (95.0-98.0) % Vent Mode Prvc FiO2 70.0 % Tidal Volume 500 PEEP 5 Sodium 159 H 162 H* (132-148) mmol/L Potassium 3.7 4.5 (3.6-5.2) mmol/L Chloride 131 H 132 H (98-107) mmol/L Carbon Dioxide 20 L 14 L (22-30) mmol/L Anion Gap 12 20 (10-20) BUN 51 H 59 H (7-17) mg/dL Creatinine 1.8 H 2.2 H (0.7-1.2) mg/dL Est GFR ( Amer) 34 27 Est GFR (Non-Af Amer) 28 22 Random Glucose 163 H 161 H (65-105) mg/dL Hemoglobin A1c (4.2-6.5) % Lactic Acid (0.7-2.1) mmol/L Calcium 9.0 8.6 (8.6-10.4) mg/dl Phosphorus 2.9 (2.5-4.5) mg/dL Magnesium 2.2 (1.6-2.3) mg/dL Total Bilirubin 0.7 (0.2-1.3) mg/dL AST 14 D (14-36) U/L ALT 26 (9-52) U/L Alkaline Phosphatase 86 (38-126) U/L Total Protein 5.3 L (6.3-8.3) g/dL Albumin 2.7 L D (3.5-5.0) g/dL Globulin 2.6 (2.2-3.9) gm/dL Albumin/Globulin Ratio 1.0 (1.0-2.1) TSH 3rd Generation 0.32 L (0.46-4.68) mIU/L 04/19/18 04/19/18 04/18/18 Range/Units 06:22 04:00 16:08 WBC 13.2 H (4.8-10.8) K/uL RBC 4.67 (3.80-5.20) Mil/uL Hgb 12.8 D (11.0-16.0) g/dL Hct 39.8 (34.0-47.0) % MCV 85.2 (81.0-99.0) fL MCH 27.4 (27.0-31.0) pg MCHC 32.1 L (33.0-37.0) g/dL RDW 16.6 H (11.5-14.5) % Plt Count 171 (130-400) K/uL MPV 11.3 (7.2-11.7) fL Puncture Site pCO2 (35-45) mm/Hg pO2 (80-100) mm/Hg HCO3 (21-28) mmol/L ABG pH (7.35-7.45) ABG Total CO2 (22-28) mmol/L ABG O2 Saturation (95-98) % ABG Base Excess (-2.0-3.0) mmol/L ABG Hemoglobin (11.7-17.4) g/dL ABG Carboxyhemoglobin (0.5-1.5) % POC ABG HHb (Measured) (0.0-5.0) % ABG Methemoglobin (0.0-3.0) % Perez Test A-a O2 Difference mm/Hg Respiratory Index Hgb O2 Saturation (95.0-98.0) % Vent Mode FiO2 % Tidal Volume PEEP Sodium (132-148) mmol/L Potassium (3.6-5.2) mmol/L Chloride (98-107) mmol/L Carbon Dioxide (22-30) mmol/L Anion Gap (10-20) BUN (7-17) mg/dL Creatinine (0.7-1.2) mg/dL Est GFR ( Amer) Est GFR (Non-Af Amer) Random Glucose (65-105) mg/dL Hemoglobin A1c 8.5 H (4.2-6.5) % Lactic Acid 2.0 (0.7-2.1) mmol/L Calcium (8.6-10.4) mg/dl Phosphorus (2.5-4.5) mg/dL Magnesium (1.6-2.3) mg/dL Total Bilirubin (0.2-1.3) mg/dL AST (14-36) U/L ALT (9-52) U/L Alkaline Phosphatase (38-126) U/L Total Protein (6.3-8.3) g/dL Albumin (3.5-5.0) g/dL Globulin (2.2-3.9) gm/dL Albumin/Globulin Ratio (1.0-2.1) TSH 3rd Generation (0.46-4.68) mIU/L Laboratory Results - last 24 hr 04/18/18 04/19/18 04/19/18 16:08 04:00 06:22 WBC 13.2 H RBC 4.67 Hgb 12.8 D Hct 39.8 MCV 85.2 MCH 27.4 MCHC 32.1 L RDW 16.6 H Plt Count 171 MPV 11.3 Puncture Site pCO2 pO2 HCO3 ABG pH ABG Total CO2 ABG O2 Saturation ABG Base Excess ABG Hemoglobin ABG Carboxyhemoglobin POC ABG HHb (Measured) ABG Methemoglobin Perez Test A-a O2 Difference Respiratory Index Hgb O2 Saturation Vent Mode FiO2 Tidal Volume PEEP Sodium Potassium Chloride Carbon Dioxide Anion Gap BUN Creatinine Est GFR ( Amer) Est GFR (Non-Af Amer) Random Glucose Hemoglobin A1c 8.5 H Lactic Acid 2.0 Calcium Phosphorus Magnesium Total Bilirubin AST ALT Alkaline Phosphatase Total Protein Albumin Globulin Albumin/Globulin Ratio TSH 3rd Generation 04/19/18 04/19/18 04/19/18 06:22 08:45 12:44 WBC RBC Hgb Hct MCV MCH MCHC RDW Plt Count MPV Puncture Site Rba pCO2 25 L pO2 170 H HCO3 17.2 L ABG pH 7.36 ABG Total CO2 14.9 L ABG O2 Saturation 98.9 H ABG Base Excess -9.9 L ABG Hemoglobin 10.9 L ABG Carboxyhemoglobin 0.9 POC ABG HHb (Measured) 1.1 ABG Methemoglobin 1.1 Perez Test Na A-a O2 Difference 298.0 Respiratory Index 1.8 Hgb O2 Saturation 97.0 Vent Mode Prvc FiO2 70.0 Tidal Volume 500 PEEP 5 Sodium 162 H* 159 H Potassium 4.5 3.7 Chloride 132 H 131 H Carbon Dioxide 14 L 20 L Anion Gap 20 12 BUN 59 H 51 H Creatinine 2.2 H 1.8 H Est GFR ( Amer) 27 34 Est GFR (Non-Af Amer) 22 28 Random Glucose 161 H 163 H Hemoglobin A1c Lactic Acid Calcium 8.6 9.0 Phosphorus 2.9 Magnesium 2.2 Total Bilirubin 0.7 AST 14 D ALT 26 Alkaline Phosphatase 86 Total Protein 5.3 L Albumin 2.7 L D Globulin 2.6 Albumin/Globulin Ratio 1.0 TSH 3rd Generation 0.32 L Fingerstick Blood Sugar Results: 322 Review of Systems - Review of Systems All systems: reviewed and no additional remarkable complaints except (no complaints) Assessment/Plan (1) UTI (urinary tract infection) Assessment and plan: Assessment: This is a 72 yo F with PMH of PVD s/p multiple endovascular stent placements to left iliac, SFA and popliteal, DM, HTN, hypercholesterolemia, right BKA, bipolar depression disorder with multiple psychiatric admissions, who presented to [facility] from long-term for AMS. Concerning for septic process +/ - DKA. Plan: Neuro: alert and oriented. Cardio: - hemodynamically stable off of pressors - Heparin 5000 units SC q12 for DVT ppx Pulm: -extubated (04/19) GI: -NPO -INR 1.3, possible early onset liver dysfunction 2/2 sepsis, continue to trend LFTs and Coags Renal: -severe TAMEKA/ARF, likely 2/2 septic process -aggressive K repletion given insulin drip for presumed DKA Endo: - DKA resolved, gap closed, giving 10 units of Lantus, and short acting insulin sliding scale. -Endo consulted, appreciate their recs ID: -UTI with sepsis, started on Ceftriaxone -ID consulted, appreciate all recs -hx unspecified penicillin allergy, but has received several doses of Ancef within last year, so safe for Rocephin Access: TLC, ETT, Peripheral IV Consults: ID, Cardio, Endo, Pulm, ICU Ppx: Heparin SC for DVT ppx Critical Care Time 35 minutes. Multi-disciplinary rounds were performed with house staff, nursing, speech therapy, respiratory therapy, pharmacy and nutrition with integrated input from the primary team/attending and other consulting services. The documented time is cumulative and includes review of patient data/exams/labs/chart review and examination of the patient on rounds and throughout the day; time is exclusive of any procedures or teaching time. Current Visit: Yes Status: Acute
[2018-04-19] MEDS ORDERED: Glucagon Recombinant 1 mg Inj IM PRN (16:48)
[2018-04-19] MEDS ORDERED: Dextrose 50% SYRINGE Inj (50 ml) IV PRN (16:48)
[2018-04-19] MEDS ORDERED: (Novolog) Insulin Aspart, Recombinant 100 u/ml 10 ml vial SC SCH (17:00)
[2018-04-19] MEDS ORDERED: (Lantus) Insulin Glargine, Recombinant SC ONE (17:00)
[2018-04-19] MEDS: Insulin Human Regular 100 UNIT in Sodium Chloride 0.9% 99 ML IV SCH (18:00)
--- NOTE | 2018-04-19 19:21 | CP.PCM.PN ---
Subjective - Date & Time of Evaluation Date of Evaluation: 04/19/18 Time of Evaluation: 19:00 - Subjective Subjective: Pulmonary follow up, Covering Dr Cordero The patient was Seen/interviewed and examined by me at the bedside, Medical records reviewed and Management issues were discussed and formulated with the house staff. Events reviewed 72 Years old female with PMHx of HTN, diabetes, right below-knee amputation, bipolar disorder, status post stent placement left iliac, SFA, Who [facility] for shortness of breath and change in mental status. Patient was intubated in the emergency room for Acute Resp failure with hypoxemia, she became hypotensive and was started on pressors with Levophed Status post code sepsis. Pt Tolerated CPAP trial today with adequate saturation and good TV Pt Secessfully Exftubated today Pt Alert, Awake, follows some commands Denies any chest pain, SOB or Palpitations Afebrile, Tmx 102.2 NSR on the monitor Last 24H I&O 3039/1160 This morning labs revealed Leucocytosis, improved renal function BUN/Cr down to 51/1.8, with improved hypernatremia Na 159 Chest x-ray single frontal view Exam Date : 04/19/2018 07:23:58 Impression: Endotracheal tube in stable position. Biapical pleural thickening with upper lobe granulomatous changes. Diffuse increased interstitial lung markings. Top normal heart size. Degenerative changes in the spine. Other lines and tubes in stable position. Objective - Vital Signs/Intake and Output Vital Signs (last 24 hours): Temp Pulse Resp BP Pulse Ox 99.2 F 87 20 126/63 96 04/19/18 16:00 04/19/18 18:00 04/19/18 18:00 04/19/18 17:57 04/19/18 18:00 Intake and Output: 04/19/18 04/20/18 18:59 06:59 Intake Total 1492.7 Output Total 845 Balance 647.7 - Medications Medications: Current Medications Acetaminophen (Tylenol 650 Mg Supp) 650 mg NE Q6 PRN PRN Reason: for temp 101 and above Last Admin: 04/18/18 21:48 Dose: 650 mg Dextrose (Dextrose 50% Inj) 0 ml IV STAT PRN; Protocol PRN Reason: Hypoglycemia Protocol Dextrose (Glutose 15) 0 gm PO ONCE PRN; Protocol PRN Reason: Hypoglycemia Protocol Glucagon (Glucagen Diagnostic Kit) 0 mg IM STAT PRN; Protocol PRN Reason: Hypoglycemia Protocol Heparin Sodium (Porcine) (Heparin) 5,000 units SC Q12H [facility] Last Admin: 04/19/18 07:41 Dose: 5,000 units Norepinephrine Bitartrate 4 mg (/ Sodium Chloride) 254 mls @ 15.24 mls/hr IV .[id number] PRN; Protocol; 4 MCG/MIN PRN Reason: TITRATE PER MD ORDER Last Titration: 04/19/18 14:00 Dose: 0 mcg/min, 0 mls/hr Insulin Human Regular 100 unit (/ Sodium Chloride) 100 mls @ 5 mls/hr IV .Q20H [facility] PRN Reason: Protocol Last Admin: 04/19/18 18:00 Dose: 4 units/hr, 4 mls/hr Ceftriaxone Sodium 1 gm/ (Sodium Chloride) 100 mls @ 200 mls/hr IVPB Q24H [facility] PRN Reason: Protocol Last Admin: 04/19/18 14:26 Dose: 200 mls/hr Potassium Chloride/Dextrose (Potassium Chl 20 Meq In D5w) 1,000 mls @ 100 mls/ hr IV .Q10H [facility] Last Admin: 04/19/18 17:06 Dose: 100 mls/hr Dextrose (Dextrose 5% In Water 1000 Ml) 1,000 mls @ 0 mls/hr IV .Q0M PRN; Protocol; Per Protocol PRN Reason: Hypoglycemia Protocol Insulin Aspart (Novolog) 0 unit SC Q4H [facility] PRN Reason: Protocol Insulin Glargine (Lantus) 10 unit SC Q24H [facility] - Labs Labs: 04/19/18 06:22 04/19/18 12:44 PT 14.3 SECONDS (9.7-12.2) H 04/18/18 09:50 INR 1.3 04/18/18 09:50 APTT 33 SECONDS (21-34) 04/18/18 09:50 - Constitutional Appears: No Acute Distress, Chronically Ill - Head Exam Head Exam: ATRAUMATIC, NORMAL INSPECTION - Eye Exam Eye Exam: EOMI, Normal appearance Pupil Exam: NORMAL ACCOMODATION - Neck Exam Neck Exam: Full ROM, Normal Inspection - Respiratory Exam Respiratory Exam: Decreased Breath Sounds, Prolonged Expiratory Phase. absent: Chest Wall Tenderness, Rales, Rhonchi, Wheezes - Cardiovascular Exam Cardiovascular Exam: REGULAR RHYTHM, RRR, +S1, +S2. absent: Bradycardia, Tachycardia, Diastolic murmur, Irregular Rhythm, JVD Assessment and Plan (1) Acute respiratory failure with hypoxemia Assessment & Plan: Successfully extubated today Aggressive pulmonary toilet, chest PT, suctioning IV antibiotics Status: Acute (2) DKA (diabetic ketoacidoses) Assessment & Plan: DKA resolved, gap closed, giving 10 units of Lantus, and short acting insulin sliding scale. Endo consulted, appreciate their recs Status: Acute (3) Severe sepsis Assessment & Plan: UTI with sepsis, started on Ceftriaxone ID consulted, appreciate all recs Pt with Hx unspecified penicillin allergy, but has received several doses of Ancef within last year, so safe for Rocephin Status: Acute (4) TAMEKA (acute kidney injury) Assessment & Plan: Acute kidney injury With fluid overload, Hypokalemia likely multifactorial due to circulatory failure, DKA and septic shock Off all nephrotoxic medications /NSAIDs Renally adjust medication dose Monitor Input/Output, daily weights Septic shock patient receiving antibiotics as per ID. Status: Acute (5) Altered mental status Status: Acute (6) Bipolar disorder Status: Acute
[2018-04-19] MEDS ORDERED: (Lantus) Insulin Glargine, Recombinant SC SCH (20:00)
[2018-04-19] MEDS: (Novolog) Insulin Aspart, Recombinant 100 u/ml 10 ml vial SC SCH (20:11)
[2018-04-20] MEDS: (Novolog) Insulin Aspart, Recombinant 100 u/ml 10 ml vial SC SCH ×4 (00:06→08:45)
[2018-04-20] MEDS: Potassium Ch 20mEq in D5W 1,000 ML IV SCH ×2 (04:39→10:23)
--- NOTE | 2018-04-20 06:06 | PN ---
Copied To: Haja Pink DO Attending MD: Haja Pink DO DATE: 04/19/2018 SUBJECTIVE: I saw her in the intensive care unit, bed #12. She is on CPAP. She is very alert. Eyes are looking at me. She is moving her left arm. Apparently, she wants the tube out of her. I do think she has improved since yesterday with improved levels. PHYSICAL EXAMINATION GENERAL: Very alert, eyes are open. VITAL SIGNS: Temperature is 100.6, 94 pulse, blood pressure, 18 respiratory rate, 100% O2 saturation and 50% on the CPAP. HEENT: Head is atraumatic and normocephalic. HEART: Regular rate. LUNGS: Decreased breath sounds, but clear. ABDOMEN: Soft. EXTREMITIES: Right AKA, and left status post fem-pop. LABORATORY DATA: She has a 162 sodium, adjustment of IV fluids. She has a BUN of 59, getting better, creatinine is up to 2.2, GFR is 22, sugar is 161, much better than 532, calcium is 8.6, phosphorus is 2.9, magnesium 2.2, total bili is 0.7, AST is 14, ALT is 26, alk phos 86, total protein is 5.3. She has a 13.2 white count, a little bit high, 12.8 hemoglobin, 39.8 hematocrit, 171 platelets. ASSESSMENT AND PLAN: She is on ceftriaxone, heparin, insulin, norepinephrine, potassium, Tylenol. We will continue with aggressive treatment and care. Hopefully going to extubate her today. Her numbers are improving. We will see her for numerous reasons, sepsis, below-knee amputation, acute renal failure, urinary tract infection, elevated blood sugars. Haja Pink DO MTDD
[2018-04-20 06:35] LABS: HEMOGLOBIN 10.9 g/dL (11.0-16.0); MEAN CELL VOLUME 84.4 fL (81.0-99.0); MEAN CORPUSCULAR HEMOGLOBIN 27.2 pg (27.0-31.0); MEAN CORPUSCULAR HGB CONC 32.3 g/dL (33.0-37.0); MEAN PLATELET VOLUME 11.3 fL (7.2-11.7); RBC 4.02 Mil/uL (3.80-5.20); RED CELL DISTRIBUTION WIDTH 17.1 % (11.5-14.5); WHITE BLOOD COUNT 8.9 K/uL (4.8-10.8)
[2018-04-20 06:43] LABS: ALB/GLOB RATIO 0.9 (1.0-2.1); ALBUMIN 2.4 g/dL (3.5-5.0); CALCIUM 8.7 mg/dl (8.6-10.4)
--- NOTE | 2018-04-20 08:47 | PN ---
Copied To: Haja Pink DO Attending MD: Haja Pink DO DATE: 04/20/2018 SUBJECTIVE: I saw her in the intensive care unit. She is very alert, on oxygen by mask. She is talking well. She did not know what happened to her. I explained to her what happened to her. She is also quite hungry, but she uses medications to keep her blood pressure up at this time. She is on ceftriaxone, dextrose, heparin, Lantus, norepinephrine, Tylenol, potassium, Novolog. PHYSICAL EXAMINATION: VITAL SIGNS: Temperature 98.5, pulse 65, blood pressure 101/47, respiratory rate 20, 100% O2 sat on 40% Ventimask. HEENT: Head is atraumatic, normocephalic. HEART: Regular rate. LUNGS: Decreased breath sounds, but clear. ABDOMEN: Soft. Obese. EXTREMITIES: Right AKA, and left leg, status post fem pop. LABORATORY DATA: She has a 13.2 white count yesterday, 39.8 hematocrit, 12.8 hemoglobin, 131 platelets. this morning. She has 159 sodium, better yesterday. BUN was 51; creatinine 1.8, improving; GFR is 28; sugar is 153, better than over 500 when she came in; calcium is 9. Total bilirubin is 0.7, AST is 14, ALT is 26, alk phos 86 yesterday, waiting for labs this morning. ASSESSMENT AND PLAN: She had a urinary tract infection. She is being seen by lots of doctors, Infectious Disease Cardiology, Mapping Supervisor, Endocrinology. She is extubated now. She is alert and oriented now. She is improving with blood pressure and pulse. She is hungry which is a good sign. She had severe sepsis, urinary tract infection, extubated now from acute respiratory failure, on IV antibiotics. We will check her labs tomorrow Haja Pink DO MTDD
--- NOTE | 2018-04-20 09:28 | HP ---
Copied To: Haja Pink DO Attending MD: Haja Pink DO LOCATION: [facility]. HISTORY OF PRESENT ILLNESS: I saw her this morning early at [facility] and came to see her status post fem-pop done by Dr. Lam. She was labored breathing, unresponsive. She is a very noncompliant patient, so I am not sure what happened. The nurses did not know what happened, but she is breathing little congested, but not awake and wake her up. She is a 72-year-old female, noncompliant with a history of right BKA, left peripheral vascular disease, status post fem-pop with Dr. Lam. PAST MEDICAL HISTORY: She has a past medical history of anxiety, bipolar disorder, CHF, COPD, depression, diabetes, hypertension. PAST SURGICAL HISTORY: She had an angioplasty, arteriotomy, cervical biopsy, colonoscopy, contrast aortogram, arteriogram, D and C, dilatation of left common iliac artery, dilatation of left external iliac artery, esophagogastroduodenoscopy, fluoroscopy of the aorta and bilateral lower extremities, multiple vascular stents, multiple transfusions. SOCIAL HISTORY: She still smokes, although the past day she has not. No alcohol. No drugs. Hypertension in the family. REVIEW OF SYSTEMS: Cannot be done. She is completely out of it. PHYSICAL EXAMINATION: GENERAL: She is unresponsive. VITAL SIGNS: She has a 100.9 temperature. She came in with 102.5 with 84/45 blood pressure, 22 respiratory rate, 123 pulse, and she was on the ventilator at 100%. HEENT: Head is atraumatic and normocephalic. Labored breathing. Throat is with phlegm and bubbles. HEART: Regular rate. LUNGS: Decreased breath sounds. Congestion, could be upper airway. ABDOMEN: Soft, nontender. Positive bowel sounds. EXTREMITIES: Right leg is a BKA. The left leg is all bandaged from the recent fem-pop. NEUROLOGIC: She is not alert at all. She is unresponsive. LABORATORY DATA: She has a 13.9 white count, 15.3 hemoglobin, 48 hematocrit with 255 platelets. She has a 1.3 INR. She has a lactate of 6.3. Blood sugar is 546. She looks like she is in DKA with septic shock. She has 154 sodium, potassium 4.1, BUN 70, creatinine 3.7 with acute renal failure. ASSESSMENT AND PLAN: Urine has moderate bacteria with urinary tract infection. She had multiple consults. She will have Pulmonary, Cardiology, Endocrinology, Vascular, Infectious Disease, Oncology, and Renal. I believe she is in septic shock with diabetic ketoacidosis. Acute renal failure, urinary tract infection. Continue with the Azactam, intravenous fluids, and vancomycin. Haja Pink DO
[2018-04-20] MEDS ORDERED: (Novolin R) Insulin Human Regular 100 units/ml vial SC SCH ×2 (10:00→11:30)
--- NOTE | 2018-04-20 12:01 | CP.CCUPN ---
<Abdias Pollock - Last Filed: 04/20/18 12:55> CCU Subjective - Physician Review Subjective (Free Text): Abdias Pollock DO PGY-1, ICU progress note for Dr. Bentley Pt was seen and examined at bedside. Pt has no complaints at this time. Pt denies headache, dizziness, lightheadedness, weakness, fever, chest pain, sob, palpitations, abdominal pain, n/v/d. Levophed gtt was discontinued this morning. A 12-point ROS was reviewed and is otherwise unremarkable. CCU Objective - Vital Signs / Intake & Output Vital Signs (Last 4 hours): Vital Signs Pulse Resp BP Pulse Ox 04/20/18 09:24 74 14 126/53 L 04/20/18 09:00 73 19 100 04/20/18 08:24 72 21 132/57 L 100 Intake and Output (Last 8hrs): Intake & Output 04/19/18 04/20/18 04/20/18 22:59 06:59 14:59 Intake Total 806 1008.5 Output Total 515 295 Balance 291 713.5 Weight 61.235 kg Intake: IV 108 Intake, IV Amount 806 900.5 Left PICC 800 800 Right Antecubital 6 left upper arm picc 100.5 Output: Urine 515 295 Urethral (Chand) 515 295 - Physical Exam Head: Positive for: Atraumatic, Normocephalic Pupils: Positive for: PERRL Extroacular Muscles: Positive for: EOMI Conjunctiva: Positive for: Normal Mouth: Positive for: Moist Mucous Membranes Neck: Positive for: Normal Range of Motion Respiratory/Chest: Positive for: Good Air Exchange, Rhonchi (upper lung falcon) Cardiovascular: Positive for: Regular Rate and Rhythm, Normal S1, S2 Abdomen: Positive for: Normal Bowel Sounds. 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 Negative for: Capillary Refill < 2 s (>3s capillary refill in the right large toe) Neurological: Positive for: GCS=15, CN II-XII Intact Skin: Positive for: Warm, Dry Psychiatric: Positive for: Alert, Oriented x 3 - Medications Active Medications: Active Medications Generic Name Dose Route Start Last Admin Trade Name Forestq PRN Reason Stop Dose Admin Acetaminophen 650 mg 04/18/18 21:38 04/18/18 21:48 Tylenol 650 Mg Supp TN 650 mg Q6 PRN Administration for temp 101 and above Dextrose 0 ml 04/19/18 16:48 Dextrose 50% Inj IV STAT PRN Hypoglycemia Protocol Protocol Dextrose 0 gm 04/19/18 16:48 Glutose 15 PO ONCE PRN Hypoglycemia Protocol Protocol Glucagon 0 mg 04/19/18 16:48 Glucagen Diagnostic Kit IM STAT PRN Hypoglycemia Protocol Protocol Heparin Sodium (Porcine) 5,000 units 04/18/18 19:30 04/20/18 08:48 Heparin SC 5,000 units Q12H XAVIER Administration Ceftriaxone Sodium 1 gm/ 100 mls @ 200 mls/hr 04/18/18 15:00 04/19/18 14:26 Sodium Chloride IVPB 200 mls/hr Q24H XAVIER Administration Protocol Dextrose 1,000 mls @ 0 mls/hr 04/19/18 16:48 Dextrose 5% In Water 1000 Ml IV .Q0M PRN Hypoglycemia Protocol Protocol Per Protocol Potassium Chloride/Dextrose 1,000 mls @ 50 mls/hr 04/20/18 10:14 04/20/18 10: 23 Potassium Chl 20 Meq In D5w IV Not Given .Q20H XAVIER Insulin Glargine 14 unit 04/20/18 22:00 Lantus SC HS XAVIER Insulin Human Regular 0 unit 04/20/18 11:30 Novolin R SC ACHS [facility] Protocol - Patient Studies Lab Studies: Microbiology Studies 04/18/18 09:59 Blood Culture - Preliminary Blood NO GROWTH AFTER 48 HOURS 04/18/18 09:59 Blood Culture - Preliminary Blood NO GROWTH AFTER 48 HOURS 04/18/18 10:02 Urine Culture - Final Urine,Chand Proteus Mirabilis Lab Studies 04/20/18 04/20/18 04/20/18 Range/Units 11:33 08:27 06:20 WBC (4.8-10.8) K/uL RBC (3.80-5.20) Mil/uL Hgb (11.0-16.0) g/dL Hct (34.0-47.0) % MCV (81.0-99.0) fL MCH (27.0-31.0) pg MCHC (33.0-37.0) g/dL RDW (11.5-14.5) % Plt Count (130-400) K/uL MPV (7.2-11.7) fL Sodium 152 H (132-148) mmol/L Potassium 3.4 L (3.6-5.2) mmol/L Chloride 126 H (98-107) mmol/L Carbon Dioxide 20 L (22-30) mmol/L Anion Gap 9 L (10-20) BUN 36 H (7-17) mg/dL Creatinine 1.2 (0.7-1.2) mg/dL Est GFR ( Amer) 54 Est GFR (Non-Af Amer) 44 POC Glucose (mg/dL) 183 H 145 H (65-110) mg/dL Random Glucose 252 H (65-105) mg/dL Calcium 8.7 (8.6-10.4) mg/dl Total Bilirubin 0.4 (0.2-1.3) mg/dL AST 24 (14-36) U/L ALT 29 (9-52) U/L Alkaline Phosphatase 88 (38-126) U/L Total Protein 4.9 L (6.3-8.3) g/dL Albumin 2.4 L (3.5-5.0) g/dL Globulin 2.6 (2.2-3.9) gm/dL Albumin/Globulin Ratio 0.9 L (1.0-2.1) 04/20/18 04/20/18 04/20/18 Range/Units 06:20 04:24 00:02 WBC 8.9 (4.8-10.8) K/uL RBC 4.02 (3.80-5.20) Mil/uL Hgb 10.9 L (11.0-16.0) g/dL Hct 33.9 L (34.0-47.0) % MCV 84.4 (81.0-99.0) fL MCH 27.2 (27.0-31.0) pg MCHC 32.3 L (33.0-37.0) g/dL RDW 17.1 H (11.5-14.5) % Plt Count 130 (130-400) K/uL MPV 11.3 (7.2-11.7) fL Sodium (132-148) mmol/L Potassium (3.6-5.2) mmol/L Chloride (98-107) mmol/L Carbon Dioxide (22-30) mmol/L Anion Gap (10-20) BUN (7-17) mg/dL Creatinine (0.7-1.2) mg/dL Est GFR ( Amer) Est GFR (Non-Af Amer) POC Glucose (mg/dL) 265 H 278 H (65-110) mg/dL Random Glucose (65-105) mg/dL Calcium (8.6-10.4) mg/dl Total Bilirubin (0.2-1.3) mg/dL AST (14-36) U/L ALT (9-52) U/L Alkaline Phosphatase (38-126) U/L Total Protein (6.3-8.3) g/dL Albumin (3.5-5.0) g/dL Globulin (2.2-3.9) gm/dL Albumin/Globulin Ratio (1.0-2.1) 04/19/18 04/19/18 04/19/18 Range/Units 20:04 17:47 17:00 WBC (4.8-10.8) K/uL RBC (3.80-5.20) Mil/uL Hgb (11.0-16.0) g/dL Hct (34.0-47.0) % MCV (81.0-99.0) fL MCH (27.0-31.0) pg MCHC (33.0-37.0) g/dL RDW (11.5-14.5) % Plt Count (130-400) K/uL MPV (7.2-11.7) fL Sodium (132-148) mmol/L Potassium (3.6-5.2) mmol/L Chloride (98-107) mmol/L Carbon Dioxide (22-30) mmol/L Anion Gap (10-20) BUN (7-17) mg/dL Creatinine (0.7-1.2) mg/dL Est GFR ( Amer) Est GFR (Non-Af Amer) POC Glucose (mg/dL) 186 H 147 H 156 H (65-110) mg/dL Random Glucose (65-105) mg/dL Calcium (8.6-10.4) mg/dl Total Bilirubin (0.2-1.3) mg/dL AST (14-36) U/L ALT (9-52) U/L Alkaline Phosphatase (38-126) U/L Total Protein (6.3-8.3) g/dL Albumin (3.5-5.0) g/dL Globulin (2.2-3.9) gm/dL Albumin/Globulin Ratio (1.0-2.1) 04/19/18 04/19/18 04/19/18 Range/Units 16:00 14:55 13:52 WBC (4.8-10.8) K/uL RBC (3.80-5.20) Mil/uL Hgb (11.0-16.0) g/dL Hct (34.0-47.0) % MCV (81.0-99.0) fL MCH (27.0-31.0) pg MCHC (33.0-37.0) g/dL RDW (11.5-14.5) % Plt Count (130-400) K/uL MPV (7.2-11.7) fL Sodium (132-148) mmol/L Potassium (3.6-5.2) mmol/L Chloride (98-107) mmol/L Carbon Dioxide (22-30) mmol/L Anion Gap (10-20) BUN (7-17) mg/dL Creatinine (0.7-1.2) mg/dL Est GFR ( Amer) Est GFR (Non-Af Amer) POC Glucose (mg/dL) 166 H 184 H 170 H (65-110) mg/dL Random Glucose (65-105) mg/dL Calcium (8.6-10.4) mg/dl Total Bilirubin (0.2-1.3) mg/dL AST (14-36) U/L ALT (9-52) U/L Alkaline Phosphatase (38-126) U/L Total Protein (6.3-8.3) g/dL Albumin (3.5-5.0) g/dL Globulin (2.2-3.9) gm/dL Albumin/Globulin Ratio (1.0-2.1) 04/19/18 04/19/18 04/19/18 Range/Units 13:00 12:44 12:00 WBC (4.8-10.8) K/uL RBC (3.80-5.20) Mil/uL Hgb (11.0-16.0) g/dL Hct (34.0-47.0) % MCV (81.0-99.0) fL MCH (27.0-31.0) pg MCHC (33.0-37.0) g/dL RDW (11.5-14.5) % Plt Count (130-400) K/uL MPV (7.2-11.7) fL Sodium 159 H (132-148) mmol/L Potassium 3.7 (3.6-5.2) mmol/L Chloride 131 H (98-107) mmol/L Carbon Dioxide 20 L (22-30) mmol/L Anion Gap 12 (10-20) BUN 51 H (7-17) mg/dL Creatinine 1.8 H (0.7-1.2) mg/dL Est GFR ( Amer) 34 Est GFR (Non-Af Amer) 28 POC Glucose (mg/dL) 180 H 156 H (65-110) mg/dL Random Glucose 163 H (65-105) mg/dL Calcium 9.0 (8.6-10.4) mg/dl Total Bilirubin (0.2-1.3) mg/dL AST (14-36) U/L ALT (9-52) U/L Alkaline Phosphatase (38-126) U/L Total Protein (6.3-8.3) g/dL Albumin (3.5-5.0) g/dL Globulin (2.2-3.9) gm/dL Albumin/Globulin Ratio (1.0-2.1) 04/19/18 04/19/18 04/19/18 Range/Units 11:02 09:59 09:00 WBC (4.8-10.8) K/uL RBC (3.80-5.20) Mil/uL Hgb (11.0-16.0) g/dL Hct (34.0-47.0) % MCV (81.0-99.0) fL MCH (27.0-31.0) pg MCHC (33.0-37.0) g/dL RDW (11.5-14.5) % Plt Count (130-400) K/uL MPV (7.2-11.7) fL Sodium (132-148) mmol/L Potassium (3.6-5.2) mmol/L Chloride (98-107) mmol/L Carbon Dioxide (22-30) mmol/L Anion Gap (10-20) BUN (7-17) mg/dL Creatinine (0.7-1.2) mg/dL Est GFR ( Amer) Est GFR (Non-Af Amer) POC Glucose (mg/dL) 178 H 156 H 148 H (65-110) mg/dL Random Glucose (65-105) mg/dL Calcium (8.6-10.4) mg/dl Total Bilirubin (0.2-1.3) mg/dL AST (14-36) U/L ALT (9-52) U/L Alkaline Phosphatase (38-126) U/L Total Protein (6.3-8.3) g/dL Albumin (3.5-5.0) g/dL Globulin (2.2-3.9) gm/dL Albumin/Globulin Ratio (1.0-2.1) 04/19/18 04/19/18 04/19/18 Range/Units 08:34 06:59 05:55 WBC (4.8-10.8) K/uL RBC (3.80-5.20) Mil/uL Hgb (11.0-16.0) g/dL Hct (34.0-47.0) % MCV (81.0-99.0) fL MCH (27.0-31.0) pg MCHC (33.0-37.0) g/dL RDW (11.5-14.5) % Plt Count (130-400) K/uL MPV (7.2-11.7) fL Sodium (132-148) mmol/L Potassium (3.6-5.2) mmol/L Chloride (98-107) mmol/L Carbon Dioxide (22-30) mmol/L Anion Gap (10-20) BUN (7-17) mg/dL Creatinine (0.7-1.2) mg/dL Est GFR ( Amer) Est GFR (Non-Af Amer) POC Glucose (mg/dL) 154 H 161 H 158 H (65-110) mg/dL Random Glucose (65-105) mg/dL Calcium (8.6-10.4) mg/dl Total Bilirubin (0.2-1.3) mg/dL AST (14-36) U/L ALT (9-52) U/L Alkaline Phosphatase (38-126) U/L Total Protein (6.3-8.3) g/dL Albumin (3.5-5.0) g/dL Globulin (2.2-3.9) gm/dL Albumin/Globulin Ratio (1.0-2.1) 04/19/18 04/19/18 04/19/18 Range/Units 05:28 04:10 02:58 WBC (4.8-10.8) K/uL RBC (3.80-5.20) Mil/uL Hgb (11.0-16.0) g/dL Hct (34.0-47.0) % MCV (81.0-99.0) fL MCH (27.0-31.0) pg MCHC (33.0-37.0) g/dL RDW (11.5-14.5) % Plt Count (130-400) K/uL MPV (7.2-11.7) fL Sodium (132-148) mmol/L Potassium (3.6-5.2) mmol/L Chloride (98-107) mmol/L Carbon Dioxide (22-30) mmol/L Anion Gap (10-20) BUN (7-17) mg/dL Creatinine (0.7-1.2) mg/dL Est GFR ( Amer) Est GFR (Non-Af Amer) POC Glucose (mg/dL) 153 H 116 H 162 H (65-110) mg/dL Random Glucose (65-105) mg/dL Calcium (8.6-10.4) mg/dl Total Bilirubin (0.2-1.3) mg/dL AST (14-36) U/L ALT (9-52) U/L Alkaline Phosphatase (38-126) U/L Total Protein (6.3-8.3) g/dL Albumin (3.5-5.0) g/dL Globulin (2.2-3.9) gm/dL Albumin/Globulin Ratio (1.0-2.1) 04/19/18 04/19/18 04/19/18 Range/Units 01:59 01:01 00:04 WBC (4.8-10.8) K/uL RBC (3.80-5.20) Mil/uL Hgb (11.0-16.0) g/dL Hct (34.0-47.0) % MCV (81.0-99.0) fL MCH (27.0-31.0) pg MCHC (33.0-37.0) g/dL RDW (11.5-14.5) % Plt Count (130-400) K/uL MPV (7.2-11.7) fL Sodium (132-148) mmol/L Potassium (3.6-5.2) mmol/L Chloride (98-107) mmol/L Carbon Dioxide (22-30) mmol/L Anion Gap (10-20) BUN (7-17) mg/dL Creatinine (0.7-1.2) mg/dL Est GFR ( Amer) Est GFR (Non-Af Amer) POC Glucose (mg/dL) 197 H 227 H 241 H (65-110) mg/dL Random Glucose (65-105) mg/dL Calcium (8.6-10.4) mg/dl Total Bilirubin (0.2-1.3) mg/dL AST (14-36) U/L ALT (9-52) U/L Alkaline Phosphatase (38-126) U/L Total Protein (6.3-8.3) g/dL Albumin (3.5-5.0) g/dL Globulin (2.2-3.9) gm/dL Albumin/Globulin Ratio (1.0-2.1) 04/18/18 04/18/18 04/18/18 Range/Units 23:05 22:02 21:05 WBC (4.8-10.8) K/uL RBC (3.80-5.20) Mil/uL Hgb (11.0-16.0) g/dL Hct (34.0-47.0) % MCV (81.0-99.0) fL MCH (27.0-31.0) pg MCHC (33.0-37.0) g/dL RDW (11.5-14.5) % Plt Count (130-400) K/uL MPV (7.2-11.7) fL Sodium (132-148) mmol/L Potassium (3.6-5.2) mmol/L Chloride (98-107) mmol/L Carbon Dioxide (22-30) mmol/L Anion Gap (10-20) BUN (7-17) mg/dL Creatinine (0.7-1.2) mg/dL Est GFR ( Amer) Est GFR (Non-Af Amer) POC Glucose (mg/dL) 223 H 197 H 146 H (65-110) mg/dL Random Glucose (65-105) mg/dL Calcium (8.6-10.4) mg/dl Total Bilirubin (0.2-1.3) mg/dL AST (14-36) U/L ALT (9-52) U/L Alkaline Phosphatase (38-126) U/L Total Protein (6.3-8.3) g/dL Albumin (3.5-5.0) g/dL Globulin (2.2-3.9) gm/dL Albumin/Globulin Ratio (1.0-2.1) 04/18/18 04/18/18 04/18/18 Range/Units 20:06 19:06 18:13 WBC (4.8-10.8) K/uL RBC (3.80-5.20) Mil/uL Hgb (11.0-16.0) g/dL Hct (34.0-47.0) % MCV (81.0-99.0) fL MCH (27.0-31.0) pg MCHC (33.0-37.0) g/dL RDW (11.5-14.5) % Plt Count (130-400) K/uL MPV (7.2-11.7) fL Sodium (132-148) mmol/L Potassium (3.6-5.2) mmol/L Chloride (98-107) mmol/L Carbon Dioxide (22-30) mmol/L Anion Gap (10-20) BUN (7-17) mg/dL Creatinine (0.7-1.2) mg/dL Est GFR ( Amer) Est GFR (Non-Af Amer) POC Glucose (mg/dL) 142 H 192 H 156 H (65-110) mg/dL Random Glucose (65-105) mg/dL Calcium (8.6-10.4) mg/dl Total Bilirubin (0.2-1.3) mg/dL AST (14-36) U/L ALT (9-52) U/L Alkaline Phosphatase (38-126) U/L Total Protein (6.3-8.3) g/dL Albumin (3.5-5.0) g/dL Globulin (2.2-3.9) gm/dL Albumin/Globulin Ratio (1.0-2.1) 04/18/18 04/18/18 04/18/18 Range/Units 17:10 15:57 15:12 WBC (4.8-10.8) K/uL RBC (3.80-5.20) Mil/uL Hgb (11.0-16.0) g/dL Hct (34.0-47.0) % MCV (81.0-99.0) fL MCH (27.0-31.0) pg MCHC (33.0-37.0) g/dL RDW (11.5-14.5) % Plt Count (130-400) K/uL MPV (7.2-11.7) fL Sodium (132-148) mmol/L Potassium (3.6-5.2) mmol/L Chloride (98-107) mmol/L Carbon Dioxide (22-30) mmol/L Anion Gap (10-20) BUN (7-17) mg/dL Creatinine (0.7-1.2) mg/dL Est GFR ( Amer) Est GFR (Non-Af Amer) POC Glucose (mg/dL) 146 H 187 H 191 H (65-110) mg/dL Random Glucose (65-105) mg/dL Calcium (8.6-10.4) mg/dl Total Bilirubin (0.2-1.3) mg/dL AST (14-36) U/L ALT (9-52) U/L Alkaline Phosphatase (38-126) U/L Total Protein (6.3-8.3) g/dL Albumin (3.5-5.0) g/dL Globulin (2.2-3.9) gm/dL Albumin/Globulin Ratio (1.0-2.1) 04/18/18 04/18/18 04/18/18 Range/Units 14:08 13:26 12:00 WBC (4.8-10.8) K/uL RBC (3.80-5.20) Mil/uL Hgb (11.0-16.0) g/dL Hct (34.0-47.0) % MCV (81.0-99.0) fL MCH (27.0-31.0) pg MCHC (33.0-37.0) g/dL RDW (11.5-14.5) % Plt Count (130-400) K/uL MPV (7.2-11.7) fL Sodium (132-148) mmol/L Potassium (3.6-5.2) mmol/L Chloride (98-107) mmol/L Carbon Dioxide (22-30) mmol/L Anion Gap (10-20) BUN (7-17) mg/dL Creatinine (0.7-1.2) mg/dL Est GFR ( Amer) Est GFR (Non-Af Amer) POC Glucose (mg/dL) 236 H 279 H 322 H (65-110) mg/dL Random Glucose (65-105) mg/dL Calcium (8.6-10.4) mg/dl Total Bilirubin (0.2-1.3) mg/dL AST (14-36) U/L ALT (9-52) U/L Alkaline Phosphatase (38-126) U/L Total Protein (6.3-8.3) g/dL Albumin (3.5-5.0) g/dL Globulin (2.2-3.9) gm/dL Albumin/Globulin Ratio (1.0-2.1) 1818 Range/Units 09:26 WBC (4.8-10.8) K/uL RBC (3.80-5.20) Mil/uL Hgb (11.0-16.0) g/dL Hct (34.0-47.0) % MCV (81.0-99.0) fL MCH (27.0-31.0) pg MCHC (33.0-37.0) g/dL RDW (11.5-14.5) % Plt Count (130-400) K/uL MPV (7.2-11.7) fL Sodium (132-148) mmol/L Potassium (3.6-5.2) mmol/L Chloride (98-107) mmol/L Carbon Dioxide (22-30) mmol/L Anion Gap (10-20) BUN (7-17) mg/dL Creatinine (0.7-1.2) mg/dL Est GFR ( Amer) Est GFR (Non-Af Amer) POC Glucose (mg/dL) 495 H* (65-110) mg/dL Random Glucose (65-105) mg/dL Calcium (8.6-10.4) mg/dl Total Bilirubin (0.2-1.3) mg/dL AST (14-36) U/L ALT (9-52) U/L Alkaline Phosphatase (38-126) U/L Total Protein (6.3-8.3) g/dL Albumin (3.5-5.0) g/dL Globulin (2.2-3.9) gm/dL Albumin/Globulin Ratio (1.0-2.1) Laboratory Results - last 24 hr 04/18/18 04/18/18 04/18/18 09:26 12:00 13:26 WBC RBC Hgb Hct MCV MCH MCHC RDW Plt Count MPV Sodium Potassium Chloride Carbon Dioxide Anion Gap BUN Creatinine Est GFR ( Amer) Est GFR (Non-Af Amer) POC Glucose (mg/dL) 495 H* 322 H 279 H Random Glucose Calcium Total Bilirubin AST ALT Alkaline Phosphatase Total Protein Albumin Globulin Albumin/Globulin Ratio 04/18/18 04/18/18 04/18/18 14:08 15:12 15:57 WBC RBC Hgb Hct MCV MCH MCHC RDW Plt Count MPV Sodium Potassium Chloride Carbon Dioxide Anion Gap BUN Creatinine Est GFR ( Amer) Est GFR (Non-Af Amer) POC Glucose (mg/dL) 236 H 191 H 187 H Random Glucose Calcium Total Bilirubin AST ALT Alkaline Phosphatase Total Protein Albumin Globulin Albumin/Globulin Ratio 04/18/18 04/18/18 04/18/18 17:10 18:13 19:06 WBC RBC Hgb Hct MCV MCH MCHC RDW Plt Count MPV Sodium Potassium Chloride Carbon Dioxide Anion Gap BUN Creatinine Est GFR ( Amer) Est GFR (Non-Af Amer) POC Glucose (mg/dL) 146 H 156 H 192 H Random Glucose Calcium Total Bilirubin AST ALT Alkaline Phosphatase Total Protein Albumin Globulin Albumin/Globulin Ratio 04/18/18 04/18/18 04/18/18 20:06 21:05 22:02 WBC RBC Hgb Hct MCV MCH MCHC RDW Plt Count MPV Sodium Potassium Chloride Carbon Dioxide Anion Gap BUN Creatinine Est GFR ( Amer) Est GFR (Non-Af Amer) POC Glucose (mg/dL) 142 H 146 H 197 H Random Glucose Calcium Total Bilirubin AST ALT Alkaline Phosphatase Total Protein Albumin Globulin Albumin/Globulin Ratio 04/18/18 04/19/18 04/19/18 23:05 00:04 01:01 WBC RBC Hgb Hct MCV MCH MCHC RDW Plt Count MPV Sodium Potassium Chloride Carbon Dioxide Anion Gap BUN Creatinine Est GFR ( Amer) Est GFR (Non-Af Amer) POC Glucose (mg/dL) 223 H 241 H 227 H Random Glucose Calcium Total Bilirubin AST ALT Alkaline Phosphatase Total Protein Albumin Globulin Albumin/Globulin Ratio 04/19/18 04/19/18 04/19/18 01:59 02:58 04:10 WBC RBC Hgb Hct MCV MCH MCHC RDW Plt Count MPV Sodium Potassium Chloride Carbon Dioxide Anion Gap BUN Creatinine Est GFR ( Amer) Est GFR (Non-Af Amer) POC Glucose (mg/dL) 197 H 162 H 116 H Random Glucose Calcium Total Bilirubin AST ALT Alkaline Phosphatase Total Protein Albumin Globulin Albumin/Globulin Ratio 04/19/18 04/19/18 04/19/18 05:28 05:55 06:59 WBC RBC Hgb Hct MCV MCH MCHC RDW Plt Count MPV Sodium Potassium Chloride Carbon Dioxide Anion Gap BUN Creatinine Est GFR ( Amer) Est GFR (Non-Af Amer) POC Glucose (mg/dL) 153 H 158 H 161 H Random Glucose Calcium Total Bilirubin AST ALT Alkaline Phosphatase Total Protein Albumin Globulin Albumin/Globulin Ratio 04/19/18 04/19/18 04/19/18 08:34 09:00 09:59 WBC RBC Hgb Hct MCV MCH MCHC RDW Plt Count MPV Sodium Potassium Chloride Carbon Dioxide Anion Gap BUN Creatinine Est GFR ( Amer) Est GFR (Non-Af Amer) POC Glucose (mg/dL) 154 H 148 H 156 H Random Glucose Calcium Total Bilirubin AST ALT Alkaline Phosphatase Total Protein Albumin Globulin Albumin/Globulin Ratio 04/19/18 04/19/18 04/19/18 11:02 12:00 12:44 WBC RBC Hgb Hct MCV MCH MCHC RDW Plt Count MPV Sodium 159 H Potassium 3.7 Chloride 131 H Carbon Dioxide 20 L Anion Gap 12 BUN 51 H Creatinine 1.8 H Est GFR ( Amer) 34 Est GFR (Non-Af Amer) 28 POC Glucose (mg/dL) 178 H 156 H Random Glucose 163 H Calcium 9.0 Total Bilirubin AST ALT Alkaline Phosphatase Total Protein Albumin Globulin Albumin/Globulin Ratio 04/19/18 04/19/18 04/19/18 13:00 13:52 14:55 WBC RBC Hgb Hct MCV MCH MCHC RDW Plt Count MPV Sodium Potassium Chloride Carbon Dioxide Anion Gap BUN Creatinine Est GFR ( Amer) Est GFR (Non-Af Amer) POC Glucose (mg/dL) 180 H 170 H 184 H Random Glucose Calcium Total Bilirubin AST ALT Alkaline Phosphatase Total Protein Albumin Globulin Albumin/Globulin Ratio 04/19/18 04/19/18 04/19/18 16:00 17:00 17:47 WBC RBC Hgb Hct MCV MCH MCHC RDW Plt Count MPV Sodium Potassium Chloride Carbon Dioxide Anion Gap BUN Creatinine Est GFR ( Amer) Est GFR (Non-Af Amer) POC Glucose (mg/dL) 166 H 156 H 147 H Random Glucose Calcium Total Bilirubin AST ALT Alkaline Phosphatase Total Protein Albumin Globulin Albumin/Globulin Ratio 04/19/18 04/20/18 04/20/18 20:04 00:02 04:24 WBC RBC Hgb Hct MCV MCH MCHC RDW Plt Count MPV Sodium Potassium Chloride Carbon Dioxide Anion Gap BUN Creatinine Est GFR ( Amer) Est GFR (Non-Af Amer) POC Glucose (mg/dL) 186 H 278 H 265 H Random Glucose Calcium Total Bilirubin AST ALT Alkaline Phosphatase Total Protein Albumin Globulin Albumin/Globulin Ratio 04/20/18 04/20/18 04/20/18 06:20 06:20 08:27 WBC 8.9 RBC 4.02 Hgb 10.9 L Hct 33.9 L MCV 84.4 MCH 27.2 MCHC 32.3 L RDW 17.1 H Plt Count 130 MPV 11.3 Sodium 152 H Potassium 3.4 L Chloride 126 H Carbon Dioxide 20 L Anion Gap 9 L BUN 36 H Creatinine 1.2 Est GFR ( Amer) 54 Est GFR (Non-Af Amer) 44 POC Glucose (mg/dL) 145 H Random Glucose 252 H Calcium 8.7 Total Bilirubin 0.4 AST 24 ALT 29 Alkaline Phosphatase 88 Total Protein 4.9 L Albumin 2.4 L Globulin 2.6 Albumin/Globulin Ratio 0.9 L 04/20/18 11:33 WBC RBC Hgb Hct MCV MCH MCHC RDW Plt Count MPV Sodium Potassium Chloride Carbon Dioxide Anion Gap BUN Creatinine Est GFR ( Amer) Est GFR (Non-Af Amer) POC Glucose (mg/dL) 183 H Random Glucose Calcium Total Bilirubin AST ALT Alkaline Phosphatase Total Protein Albumin Globulin Albumin/Globulin Ratio Fingerstick Blood Sugar Results: 145 Review of Systems - Review of Systems All systems: reviewed and no additional remarkable complaints except (as per HPI ) Critical Care Progress Note - Extremities/Vascular Does the Patient have a Central Venous Catheter?: Yes - Prophylaxis DVT Prophylaxis DVT: Heparin SQ - Nutrition Nutrition: Nutrition Category Date Time Status Heart Healthy Diet [DIET] Diets 04/20/18 Lunch Active Assessment/Plan - Assessment and Plan (Free Text) Assessment: This is a 72 yo F with PMH of PVD s/p multiple endovascular stent placements to left iliac, SFA and popliteal, DM, HTN, hypercholesterolemia, right BKA, bipolar depression disorder with multiple psychiatric admissions, who presented to [facility] (04/18) from [facility]. Pt was intubated on arrival due to increased work of breathing and tachypnea. Pt was extubated on . Pt was placed in the ICU for management of septic shock, secondary to urosepsis, requiring levophed. Pt is currently off of levophed gtt, with stable BP. Continuing cardiovascular and neurological monitoring in the ICU. Plan: Neuro: - monitor for mental status changes - Pt is Alert, awake and oriented x3 - Pt is AAOx3 at baseline - Head CT (04/18) showed chronic microvascular ischemic change. - Tylenol 650 mg for analgesia Cardio: - pt is hemodynamically stable - levophed was discontinued today - Heparin 5000 units SC q12 for vte ppx - s/p fem-pop bypass, f/u vascular surgery recs Pulm: - extubated (04/19), now on NC PRN - maintain spo2>92% GI: - HHD Renal: - TAMEKA/ARF is improving; BUN/Cr 36/1.2 - sodium/chloride is gradually improving (152/126) - 1/2 NS at 75 mL/hr - hyperchloermic metabolic acidosis, likely secondary to posttreatment of ketoacidosis - maintain euvolemia - continue to replete electrolytes as needed Endo: - maintain euglycemia - accucheck achs - ISS low - insulin glargine 14 units sc hs as per endo - f/u endo recs ID: - pt afebrile - leukocytosis is resolved - UTI with sepsis; culture shows mdr proteus miribilis sensitive to meropenam - merrem 1g - BC x2 shows prelim no growth x 48 hours - f/u ID recs - hx unspecified penicillin allergy, but has received several doses of Ancef within last year, so safe for Rocephin Heme: - Heparin q12 for vte ppx PPX: heparin for vte ppx Case was reviewed and discussed with attending physician, Dr. Bentley <Jone Bentley - Last Filed: 04/20/18 17:54> CCU Objective - Vital Signs / Intake & Output Vital Signs (Last 4 hours): Vital Signs Pulse Resp BP Pulse Ox 04/20/18 16:24 78 10 L 115/50 L 94 L 04/20/18 16:00 79 17 04/20/18 15:24 79 13 109/60 100 04/20/18 15:00 78 16 04/20/18 14:24 79 14 101/56 L 99 04/20/18 14:00 79 11 L 98 Intake and Output (Last 8hrs): Intake & Output 04/20/18 04/20/18 04/20/18 06:59 14:59 22:59 Intake Total 1008.5 800 Output Total 295 240 Balance 713.5 560 Weight 135 lb Intake: IV 108 Intake, IV Amount 900.5 600 Left PICC 800 400 Left PICC distal 200 left upper arm picc 100.5 Oral 200 Output: Urine 295 240 Urethral (Chand) 295 240 Other: # Bowel Movements 1 - Medications Active Medications: Active Medications Generic Name Dose Route Start Last Admin Trade Name Freq PRN Reason Stop Dose Admin Acetaminophen 650 mg 04/18/18 21:38 04/18/18 21:48 Tylenol 650 Mg Supp TN 650 mg Q6 PRN Administration for temp 101 and above Dextrose 0 ml 04/19/18 16:48 Dextrose 50% Inj IV STAT PRN Hypoglycemia Protocol Protocol Dextrose 0 gm 04/19/18 16:48 Glutose 15 PO ONCE PRN Hypoglycemia Protocol Protocol Glucagon 0 mg 04/19/18 16:48 Glucagen Diagnostic Kit IM STAT PRN Hypoglycemia Protocol Protocol Heparin Sodium (Porcine) 5,000 units 04/18/18 19:30 04/20/18 08:48 Heparin SC 5,000 units Q12H XAVIER Administration Dextrose 1,000 mls @ 0 mls/hr 04/19/18 16:48 Dextrose 5% In Water 1000 Ml IV .Q0M PRN Hypoglycemia Protocol Protocol Per Protocol Potassium Chloride/Dextrose 1,000 mls @ 50 mls/hr 04/20/18 10:14 04/20/18 10: 23 Potassium Chl 20 Meq In D5w IV Not Given .Q20H XAVIER Meropenem 500 mg/ Sodium 100 mls @ 100 mls/hr 04/20/18 21:00 Chloride IVPB Q6H XAVIER Protocol Insulin Glargine 20 unit 04/20/18 22:00 Lantus SC HS XAVIER Insulin Human Regular 0 unit 04/20/18 16:30 04/20/18 16:47 Novolin R SC Not Given ACHS [facility] Protocol - Patient Studies Lab Studies: Microbiology Studies 04/18/18 21:41 MRSA Culture (Admit) - Final Naris MRSA NOT DETECTED 04/18/18 09:59 Blood Culture - Preliminary Blood NO GROWTH AFTER 48 HOURS 04/18/18 09:59 Blood Culture - Preliminary Blood NO GROWTH AFTER 48 HOURS 04/18/18 10:02 Urine Culture - Final Urine,Ch[facility] Proteus [facility]abil[facility] Lab Studies 04/20/18 04/20/18 04/20/18 Range/Units 14:28 11:33 08:27 WBC (4.8-10.8) K/uL RBC (3.80-5.20) Mil/uL Hgb (11.0-16.0) g/dL Hct (34.0-47.0) % MCV (81.0-99.0) fL MCH (27.0-31.0) pg MCHC (33.0-37.0) g/dL RDW (11.5-14.5) % Plt Count (130-400) K/uL MPV (7.2-11.7) fL Sodium (132-148) mmol/L Potassium (3.6-5.2) mmol/L Chloride (98-107) mmol/L Carbon Dioxide (22-30) mmol/L Anion Gap (10-20) BUN (7-17) mg/dL Creatinine (0.7-1.2) mg/dL Est GFR ( Amer) Est GFR (Non-Af Amer) POC Glucose (mg/dL) 183 H 145 H (65-110) mg/dL Random Glucose (65-105) mg/dL Calcium (8.6-10.4) mg/dl Magnesium 2.0 (1.6-2.3) mg/dL Total Bilirubin (0.2-1.3) mg/dL AST (14-36) U/L ALT (9-52) U/L Alkaline Phosphatase (38-126) U/L Total Protein (6.3-8.3) g/dL Albumin (3.5-5.0) g/dL Globulin (2.2-3.9) gm/dL Albumin/Globulin Ratio (1.0-2.1) 04/20/18 04/20/18 04/20/18 Range/Units 06:20 06:20 04:24 WBC 8.9 (4.8-10.8) K/uL RBC 4.02 (3.80-5.20) Mil/uL Hgb 10.9 L (11.0-16.0) g/dL Hct 33.9 L (34.0-47.0) % MCV 84.4 (81.0-99.0) fL MCH 27.2 (27.0-31.0) pg MCHC 32.3 L (33.0-37.0) g/dL RDW 17.1 H (11.5-14.5) % Plt Count 130 (130-400) K/uL MPV 11.3 (7.2-11.7) fL Sodium 152 H (132-148) mmol/L Potassium 3.4 L (3.6-5.2) mmol/L Chloride 126 H (98-107) mmol/L Carbon Dioxide 20 L (22-30) mmol/L Anion Gap 9 L (10-20) BUN 36 H (7-17) mg/dL Creatinine 1.2 (0.7-1.2) mg/dL Est GFR ( Amer) 54 Est GFR (Non-Af Amer) 44 POC Glucose (mg/dL) 265 H (65-110) mg/dL Random Glucose 252 H (65-105) mg/dL Calcium 8.7 (8.6-10.4) mg/dl Magnesium (1.6-2.3) mg/dL Total Bilirubin 0.4 (0.2-1.3) mg/dL AST 24 (14-36) U/L ALT 29 (9-52) U/L Alkaline Phosphatase 88 (38-126) U/L Total Protein 4.9 L (6.3-8.3) g/dL Albumin 2.4 L (3.5-5.0) g/dL Globulin 2.6 (2.2-3.9) gm/dL Albumin/Globulin Ratio 0.9 L (1.0-2.1) 04/20/18 04/19/18 04/19/18 Range/Units 00:02 20:04 17:47 WBC (4.8-10.8) K/uL RBC (3.80-5.20) Mil/uL Hgb (11.0-16.0) g/dL Hct (34.0-47.0) % MCV (81.0-99.0) fL MCH (27.0-31.0) pg MCHC (33.0-37.0) g/dL RDW (11.5-14.5) % Plt Count (130-400) K/uL MPV (7.2-11.7) fL Sodium (132-148) mmol/L Potassium (3.6-5.2) mmol/L Chloride (98-107) mmol/L Carbon Dioxide (22-30) mmol/L Anion Gap (10-20) BUN (7-17) mg/dL Creatinine (0.7-1.2) mg/dL Est GFR ( Amer) Est GFR (Non-Af Amer) POC Glucose (mg/dL) 278 H 186 H 147 H (65-110) mg/dL Random Glucose (65-105) mg/dL Calcium (8.6-10.4) mg/dl Magnesium (1.6-2.3) mg/dL Total Bilirubin (0.2-1.3) mg/dL AST (14-36) U/L ALT (9-52) U/L Alkaline Phosphatase (38-126) U/L Total Protein (6.3-8.3) g/dL Albumin (3.5-5.0) g/dL Globulin (2.2-3.9) gm/dL Albumin/Globulin Ratio (1.0-2.1) 04/19/18 04/19/18 04/19/18 Range/Units 17:00 16:00 14:55 WBC (4.8-10.8) K/uL RBC (3.80-5.20) Mil/uL Hgb (11.0-16.0) g/dL Hct (34.0-47.0) % MCV (81.0-99.0) fL MCH (27.0-31.0) pg MCHC (33.0-37.0) g/dL RDW (11.5-14.5) % Plt Count (130-400) K/uL MPV (7.2-11.7) fL Sodium (132-148) mmol/L Potassium (3.6-5.2) mmol/L Chloride (98-107) mmol/L Carbon Dioxide (22-30) mmol/L Anion Gap (10-20) BUN (7-17) mg/dL Creatinine (0.7-1.2) mg/dL Est GFR ( Amer) Est GFR (Non-Af Amer) POC Glucose (mg/dL) 156 H 166 H 184 H (65-110) mg/dL Random Glucose (65-105) mg/dL Calcium (8.6-10.4) mg/dl Magnesium (1.6-2.3) mg/dL Total Bilirubin (0.2-1.3) mg/dL AST (14-36) U/L ALT (9-52) U/L Alkaline Phosphatase (38-126) U/L Total Protein (6.3-8.3) g/dL Albumin (3.5-5.0) g/dL Globulin (2.2-3.9) gm/dL Albumin/Globulin Ratio (1.0-2.1) 04/19/18 04/19/18 04/19/18 Range/Units 13:52 13:00 12:00 WBC (4.8-10.8) K/uL RBC (3.80-5.20) Mil/uL Hgb (11.0-16.0) g/dL Hct (34.0-47.0) % MCV (81.0-99.0) fL MCH (27.0-31.0) pg MCHC (33.0-37.0) g/dL RDW (11.5-14.5) % Plt Count (130-400) K/uL MPV (7.2-11.7) fL Sodium (132-148) mmol/L Potassium (3.6-5.2) mmol/L Chloride (98-107) mmol/L Carbon Dioxide (22-30) mmol/L Anion Gap (10-20) BUN (7-17) mg/dL Creatinine (0.7-1.2) mg/dL Est GFR ( Amer) Est GFR (Non-Af Amer) POC Glucose (mg/dL) 170 H 180 H 156 H (65-110) mg/dL Random Glucose (65-105) mg/dL Calcium (8.6-10.4) mg/dl Magnesium (1.6-2.3) mg/dL Total Bilirubin (0.2-1.3) mg/dL AST (14-36) U/L ALT (9-52) U/L Alkaline Phosphatase (38-126) U/L Total Protein (6.3-8.3) g/dL Albumin (3.5-5.0) g/dL Globulin (2.2-3.9) gm/dL Albumin/Globulin Ratio (1.0-2.1) 04/19/18 04/19/18 04/19/18 Range/Units 11:02 09:59 09:00 WBC (4.8-10.8) K/uL RBC (3.80-5.20) Mil/uL Hgb (11.0-16.0) g/dL Hct (34.0-47.0) % MCV (81.0-99.0) fL MCH (27.0-31.0) pg MCHC (33.0-37.0) g/dL RDW (11.5-14.5) % Plt Count (130-400) K/uL MPV (7.2-11.7) fL Sodium (132-148) mmol/L Potassium (3.6-5.2) mmol/L Chloride (98-107) mmol/L Carbon Dioxide (22-30) mmol/L Anion Gap (10-20) BUN (7-17) mg/dL Creatinine (0.7-1.2) mg/dL Est GFR ( Amer) Est GFR (Non-Af Amer) POC Glucose (mg/dL) 178 H 156 H 148 H (65-110) mg/dL Random Glucose (65-105) mg/dL Calcium (8.6-10.4) mg/dl Magnesium (1.6-2.3) mg/dL Total Bilirubin (0.2-1.3) mg/dL AST (14-36) U/L ALT (9-52) U/L Alkaline Phosphatase (38-126) U/L Total Protein (6.3-8.3) g/dL Albumin (3.5-5.0) g/dL Globulin (2.2-3.9) gm/dL Albumin/Globulin Ratio (1.0-2.1) 04/19/18 04/19/18 04/19/18 Range/Units 08:34 06:59 05:55 WBC (4.8-10.8) K/uL RBC (3.80-5.20) Mil/uL Hgb (11.0-16.0) g/dL Hct (34.0-47.0) % MCV (81.0-99.0) fL MCH (27.0-31.0) pg MCHC (33.0-37.0) g/dL RDW (11.5-14.5) % Plt Count (130-400) K/uL MPV (7.2-11.7) fL Sodium (132-148) mmol/L Potassium (3.6-5.2) mmol/L Chloride (98-107) mmol/L Carbon Dioxide (22-30) mmol/L Anion Gap (10-20) BUN (7-17) mg/dL Creatinine (0.7-1.2) mg/dL Est GFR ( Amer) Est GFR (Non-Af Amer) POC Glucose (mg/dL) 154 H 161 H 158 H (65-110) mg/dL Random Glucose (65-105) mg/dL Calcium (8.6-10.4) mg/dl Magnesium (1.6-2.3) mg/dL Total Bilirubin (0.2-1.3) mg/dL AST (14-36) U/L ALT (9-52) U/L Alkaline Phosphatase (38-126) U/L Total Protein (6.3-8.3) g/dL Albumin (3.5-5.0) g/dL Globulin (2.2-3.9) gm/dL Albumin/Globulin Ratio (1.0-2.1) 04/19/18 04/19/18 04/19/18 Range/Units 05:28 04:10 02:58 WBC (4.8-10.8) K/uL RBC (3.80-5.20) Mil/uL Hgb (11.0-16.0) g/dL Hct (34.0-47.0) % MCV (81.0-99.0) fL MCH (27.0-31.0) pg MCHC (33.0-37.0) g/dL RDW (11.5-14.5) % Plt Count (130-400) K/uL MPV (7.2-11.7) fL Sodium (132-148) mmol/L Potassium (3.6-5.2) mmol/L Chloride (98-107) mmol/L Carbon Dioxide (22-30) mmol/L Anion Gap (10-20) BUN (7-17) mg/dL Creatinine (0.7-1.2) mg/dL Est GFR ( Amer) Est GFR (Non-Af Amer) POC Glucose (mg/dL) 153 H 116 H 162 H (65-110) mg/dL Random Glucose (65-105) mg/dL Calcium (8.6-10.4) mg/dl Magnesium (1.6-2.3) mg/dL Total Bilirubin (0.2-1.3) mg/dL AST (14-36) U/L ALT (9-52) U/L Alkaline Phosphatase (38-126) U/L Total Protein (6.3-8.3) g/dL Albumin (3.5-5.0) g/dL Globulin (2.2-3.9) gm/dL Albumin/Globulin Ratio (1.0-2.1) 04/19/18 04/19/18 04/19/18 Range/Units 01:59 01:01 00:04 WBC (4.8-10.8) K/uL RBC (3.80-5.20) Mil/uL Hgb (11.0-16.0) g/dL Hct (34.0-47.0) % MCV (81.0-99.0) fL MCH (27.0-31.0) pg MCHC (33.0-37.0) g/dL RDW (11.5-14.5) % Plt Count (130-400) K/uL MPV (7.2-11.7) fL Sodium (132-148) mmol/L Potassium (3.6-5.2) mmol/L Chloride (98-107) mmol/L Carbon Dioxide (22-30) mmol/L Anion Gap (10-20) BUN (7-17) mg/dL Creatinine (0.7-1.2) mg/dL Est GFR ( Amer) Est GFR (Non-Af Amer) POC Glucose (mg/dL) 197 H 227 H 241 H (65-110) mg/dL Random Glucose (65-105) mg/dL Calcium (8.6-10.4) mg/dl Magnesium (1.6-2.3) mg/dL Total Bilirubin (0.2-1.3) mg/dL AST (14-36) U/L ALT (9-52) U/L Alkaline Phosphatase (38-126) U/L Total Protein (6.3-8.3) g/dL Albumin (3.5-5.0) g/dL Globulin (2.2-3.9) gm/dL Albumin/Globulin Ratio (1.0-2.1) 04/18/18 04/18/18 04/18/18 Range/Units 23:05 22:02 21:05 WBC (4.8-10.8) K/uL RBC (3.80-5.20) Mil/uL Hgb (11.0-16.0) g/dL Hct (34.0-47.0) % MCV (81.0-99.0) fL MCH (27.0-31.0) pg MCHC (33.0-37.0) g/dL RDW (11.5-14.5) % Plt Count (130-400) K/uL MPV (7.2-11.7) fL Sodium (132-148) mmol/L Potassium (3.6-5.2) mmol/L Chloride (98-107) mmol/L Carbon Dioxide (22-30) mmol/L Anion Gap (10-20) BUN (7-17) mg/dL Creatinine (0.7-1.2) mg/dL Est GFR ( Amer) Est GFR (Non-Af Amer) POC Glucose (mg/dL) 223 H 197 H 146 H (65-110) mg/dL Random Glucose (65-105) mg/dL Calcium (8.6-10.4) mg/dl Magnesium (1.6-2.3) mg/dL Total Bilirubin (0.2-1.3) mg/dL AST (14-36) U/L ALT (9-52) U/L Alkaline Phosphatase (38-126) U/L Total Protein (6.3-8.3) g/dL Albumin (3.5-5.0) g/dL Globulin (2.2-3.9) gm/dL Albumin/Globulin Ratio (1.0-2.1) 04/18/18 04/18/18 04/18/18 Range/Units 20:06 19:06 18:13 WBC (4.8-10.8) K/uL RBC (3.80-5.20) Mil/uL Hgb (11.0-16.0) g/dL Hct (34.0-47.0) % MCV (81.0-99.0) fL MCH (27.0-31.0) pg MCHC (33.0-37.0) g/dL RDW (11.5-14.5) % Plt Count (130-400) K/uL MPV (7.2-11.7) fL Sodium (132-148) mmol/L Potassium (3.6-5.2) mmol/L Chloride (98-107) mmol/L Carbon Dioxide (22-30) mmol/L Anion Gap (10-20) BUN (7-17) mg/dL Creatinine (0.7-1.2) mg/dL Est GFR ( Amer) Est GFR (Non-Af Amer) POC Glucose (mg/dL) 142 H 192 H 156 H (65-110) mg/dL Random Glucose (65-105) mg/dL Calcium (8.6-10.4) mg/dl Magnesium (1.6-2.3) mg/dL Total Bilirubin (0.2-1.3) mg/dL AST (14-36) U/L ALT (9-52) U/L Alkaline Phosphatase (38-126) U/L Total Protein (6.3-8.3) g/dL Albumin (3.5-5.0) g/dL Globulin (2.2-3.9) gm/dL Albumin/Globulin Ratio (1.0-2.1) 04/18/18 04/18/18 04/18/18 Range/Units 17:10 15:57 15:12 WBC (4.8-10.8) K/uL RBC (3.80-5.20) Mil/uL Hgb (11.0-16.0) g/dL Hct (34.0-47.0) % MCV (81.0-99.0) fL MCH (27.0-31.0) pg MCHC (33.0-37.0) g/dL RDW (11.5-14.5) % Plt Count (130-400) K/uL MPV (7.2-11.7) fL Sodium (132-148) mmol/L Potassium (3.6-5.2) mmol/L Chloride (98-107) mmol/L Carbon Dioxide (22-30) mmol/L Anion Gap (10-20) BUN (7-17) mg/dL Creatinine (0.7-1.2) mg/dL Est GFR ( Amer) Est GFR (Non-Af Amer) POC Glucose (mg/dL) 146 H 187 H 191 H (65-110) mg/dL Random Glucose (65-105) mg/dL Calcium (8.6-10.4) mg/dl Magnesium (1.6-2.3) mg/dL Total Bilirubin (0.2-1.3) mg/dL AST (14-36) U/L ALT (9-52) U/L Alkaline Phosphatase (38-126) U/L Total Protein (6.3-8.3) g/dL Albumin (3.5-5.0) g/dL Globulin (2.2-3.9) gm/dL Albumin/Globulin Ratio (1.0-2.1) 04/18/18 04/18/18 04/18/18 Range/Units 14:08 13:26 12:00 WBC (4.8-10.8) K/uL RBC (3.80-5.20) Mil/uL Hgb (11.0-16.0) g/dL Hct (34.0-47.0) % MCV (81.0-99.0) fL MCH (27.0-31.0) pg MCHC (33.0-37.0) g/dL RDW (11.5-14.5) % Plt Count (130-400) K/uL MPV (7.2-11.7) fL Sodium (132-148) mmol/L Potassium (3.6-5.2) mmol/L Chloride (98-107) mmol/L Carbon Dioxide (22-30) mmol/L Anion Gap (10-20) BUN (7-17) mg/dL Creatinine (0.7-1.2) mg/dL Est GFR ( Amer) Est GFR (Non-Af Amer) POC Glucose (mg/dL) 236 H 279 H 322 H (65-110) mg/dL Random Glucose (65-105) mg/dL Calcium (8.6-10.4) mg/dl Magnesium (1.6-2.3) mg/dL Total Bilirubin (0.2-1.3) mg/dL AST (14-36) U/L ALT (9-52) U/L Alkaline Phosphatase (38-126) U/L Total Protein (6.3-8.3) g/dL Albumin (3.5-5.0) g/dL Globulin (2.2-3.9) gm/dL Albumin/Globulin Ratio (1.0-2.1) 04/18/18 Range/Units 09:26 WBC (4.8-10.8) K/uL RBC (3.80-5.20) Mil/uL Hgb (11.0-16.0) g/dL Hct (34.0-47.0) % MCV (81.0-99.0) fL MCH (27.0-31.0) pg MCHC (33.0-37.0) g/dL RDW (11.5-14.5) % Plt Count (130-400) K/uL MPV (7.2-11.7) fL Sodium (132-148) mmol/L Potassium (3.6-5.2) mmol/L Chloride (98-107) mmol/L Carbon Dioxide (22-30) mmol/L Anion Gap (10-20) BUN (7-17) mg/dL Creatinine (0.7-1.2) mg/dL Est GFR ( Amer) Est GFR (Non-Af Amer) POC Glucose (mg/dL) 495 H* (65-110) mg/dL Random Glucose (65-105) mg/dL Calcium (8.6-10.4) mg/dl Magnesium (1.6-2.3) mg/dL Total Bilirubin (0.2-1.3) mg/dL AST (14-36) U/L ALT (9-52) U/L Alkaline Phosphatase (38-126) U/L Total Protein (6.3-8.3) g/dL Albumin (3.5-5.0) g/dL Globulin (2.2-3.9) gm/dL Albumin/Globulin Ratio (1.0-2.1) Laboratory Results - last 24 hr 04/18/18 04/18/18 04/18/18 09:26 12:00 13:26 WBC RBC Hgb Hct MCV MCH MCHC RDW Plt Count MPV Sodium Potassium Chloride Carbon Dioxide Anion Gap BUN Creatinine Est GFR ( Amer) Est GFR (Non-Af Amer) POC Glucose (mg/dL) 495 H* 322 H 279 H Random Glucose Calcium Magnesium Total Bilirubin AST ALT Alkaline Phosphatase Total Protein Albumin Globulin Albumin/Globulin Ratio 04/18/18 04/18/18 04/18/18 14:08 15:12 15:57 WBC RBC Hgb Hct MCV MCH MCHC RDW Plt Count MPV Sodium Potassium Chloride Carbon Dioxide Anion Gap BUN Creatinine Est GFR ( Amer) Est GFR (Non-Af Amer) POC Glucose (mg/dL) 236 H 191 H 187 H Random Glucose Calcium Magnesium Total Bilirubin AST ALT Alkaline Phosphatase Total Protein Albumin Globulin Albumin/Globulin Ratio 04/18/18 04/18/18 04/18/18 17:10 18:13 19:06 WBC RBC Hgb Hct MCV MCH MCHC RDW Plt Count MPV Sodium Potassium Chloride Carbon Dioxide Anion Gap BUN Creatinine Est GFR ( Amer) Est GFR (Non-Af Amer) POC Glucose (mg/dL) 146 H 156 H 192 H Random Glucose Calcium Magnesium Total Bilirubin AST ALT Alkaline Phosphatase Total Protein Albumin Globulin Albumin/Globulin Ratio 04/18/18 04/18/18 04/18/18 20:06 21:05 22:02 WBC RBC Hgb Hct MCV MCH MCHC RDW Plt Count MPV Sodium Potassium Chloride Carbon Dioxide Anion Gap BUN Creatinine Est GFR ( Amer) Est GFR (Non-Af Amer) POC Glucose (mg/dL) 142 H 146 H 197 H Random Glucose Calcium Magnesium Total Bilirubin AST ALT Alkaline Phosphatase Total Protein Albumin Globulin Albumin/Globulin Ratio 04/18/18 04/19/18 04/19/18 23:05 00:04 01:01 WBC RBC Hgb Hct MCV MCH MCHC RDW Plt Count MPV Sodium Potassium Chloride Carbon Dioxide Anion Gap BUN Creatinine Est GFR ( Amer) Est GFR (Non-Af Amer) POC Glucose (mg/dL) 223 H 241 H 227 H Random Glucose Calcium Magnesium Total Bilirubin AST ALT Alkaline Phosphatase Total Protein Albumin Globulin Albumin/Globulin Ratio 04/19/18 04/19/18 04/19/18 01:59 02:58 04:10 WBC RBC Hgb Hct MCV MCH MCHC RDW Plt Count MPV Sodium Potassium Chloride Carbon Dioxide Anion Gap BUN Creatinine Est GFR ( Amer) Est GFR (Non-Af Amer) POC Glucose (mg/dL) 197 H 162 H 116 H Random Glucose Calcium Magnesium Total Bilirubin AST ALT Alkaline Phosphatase Total Protein Albumin Globulin Albumin/Globulin Ratio 04/19/18 04/19/18 04/19/18 05:28 05:55 06:59 WBC RBC Hgb Hct MCV MCH MCHC RDW Plt Count MPV Sodium Potassium Chloride Carbon Dioxide Anion Gap BUN Creatinine Est GFR ( Amer) Est GFR (Non-Af Amer) POC Glucose (mg/dL) 153 H 158 H 161 H Random Glucose Calcium Magnesium Total Bilirubin AST ALT Alkaline Phosphatase Total Protein Albumin Globulin Albumin/Globulin Ratio 04/19/18 04/19/18 04/19/18 08:34 09:00 09:59 WBC RBC Hgb Hct MCV MCH MCHC RDW Plt Count MPV Sodium Potassium Chloride Carbon Dioxide Anion Gap BUN Creatinine Est GFR ( Amer) Est GFR (Non-Af Amer) POC Glucose (mg/dL) 154 H 148 H 156 H Random Glucose Calcium Magnesium Total Bilirubin AST ALT Alkaline Phosphatase Total Protein Albumin Globulin Albumin/Globulin Ratio 04/19/18 04/19/18 04/19/18 11:02 12:00 13:00 WBC RBC Hgb Hct MCV MCH MCHC RDW Plt Count MPV Sodium Potassium Chloride Carbon Dioxide Anion Gap BUN Creatinine Est GFR ( Amer) Est GFR (Non-Af Amer) POC Glucose (mg/dL) 178 H 156 H 180 H Random Glucose Calcium Magnesium Total Bilirubin AST ALT Alkaline Phosphatase Total Protein Albumin Globulin Albumin/Globulin Ratio 04/19/18 04/19/18 04/19/18 13:52 14:55 16:00 WBC RBC Hgb Hct MCV MCH MCHC RDW Plt Count MPV Sodium Potassium Chloride Carbon Dioxide Anion Gap BUN Creatinine Est GFR ( Amer) Est GFR (Non-Af Amer) POC Glucose (mg/dL) 170 H 184 H 166 H Random Glucose Calcium Magnesium Total Bilirubin AST ALT Alkaline Phosphatase Total Protein Albumin Globulin Albumin/Globulin Ratio 04/19/18 04/19/18 04/19/18 17:00 17:47 20:04 WBC RBC Hgb Hct MCV MCH MCHC RDW Plt Count MPV Sodium Potassium Chloride Carbon Dioxide Anion Gap BUN Creatinine Est GFR ( Amer) Est GFR (Non-Af Amer) POC Glucose (mg/dL) 156 H 147 H 186 H Random Glucose Calcium Magnesium Total Bilirubin AST ALT Alkaline Phosphatase Total Protein Albumin Globulin Albumin/Globulin Ratio 04/20/18 04/20/18 04/20/18 00:02 04:24 06:20 WBC 8.9 RBC 4.02 Hgb 10.9 L Hct 33.9 L MCV 84.4 MCH 27.2 MCHC 32.3 L RDW 17.1 H Plt Count 130 MPV 11.3 Sodium Potassium Chloride Carbon Dioxide Anion Gap BUN Creatinine Est GFR ( Amer) Est GFR (Non-Af Amer) POC Glucose (mg/dL) 278 H 265 H Random Glucose Calcium Magnesium Total Bilirubin AST ALT Alkaline Phosphatase Total Protein Albumin Globulin Albumin/Globulin Ratio 04/20/18 04/20/18 04/20/18 06:20 08:27 11:33 WBC RBC Hgb Hct MCV MCH MCHC RDW Plt Count MPV Sodium 152 H Potassium 3.4 L Chloride 126 H Carbon Dioxide 20 L Anion Gap 9 L BUN 36 H Creatinine 1.2 Est GFR ( Amer) 54 Est GFR (Non-Af Amer) 44 POC Glucose (mg/dL) 145 H 183 H Random Glucose 252 H Calcium 8.7 Magnesium Total Bilirubin 0.4 AST 24 ALT 29 Alkaline Phosphatase 88 Total Protein 4.9 L Albumin 2.4 L Globulin 2.6 Albumin/Globulin Ratio 0.9 L 04/20/18 14:28 WBC RBC Hgb Hct MCV MCH MCHC RDW Plt Count MPV Sodium Potassium Chloride Carbon Dioxide Anion Gap BUN Creatinine Est GFR ( Amer) Est GFR (Non-Af Amer) POC Glucose (mg/dL) Random Glucose Calcium Magnesium 2.0 Total Bilirubin AST ALT Alkaline Phosphatase Total Protein Albumin Globulin Albumin/Globulin Ratio Critical Care Progress Note - Nutrition Nutrition: Nutrition Category Date Time Status Heart Healthy Diet [DIET] Diets 04/20/18 Lunch Active Attending/Attestation - Attestation I have personally seen and examined this patient.: Yes I have fully participated in the care of the patient.: Yes I have reviewed all pertinent clinical information: Yes Notes (Text): 04/20/18 17:54 Patient is morning awake and responding. She was out of bed to chair. Urine analysis showing evidence of Negative bacteria. Currently on ceftriaxone. Will change him to meropenem. Evaluation by infectious disease. Ration admitted to the hospital with the is pretty failure, sepsis. Improving. Hypernatremia. IV fluid hypertonic. Monitor the H&H. Patient is more stable., If she is more stable, possible discharge to floor in the morning
[2018-04-20] MEDS ORDERED: Meropenem 1 GM in Sodium Chloride 0.9% 100 ML IVPB ONE (14:00)
--- NOTE | 2018-04-20 14:01 | CP.PCM.PN ---
Subjective - Date & Time of Evaluation Date of Evaluation: 04/20/18 Time of Evaluation: 08:00 - Subjective Subjective: iv rx switched to merrem for ESBL proteus urine Objective - Vital Signs/Intake and Output Vital Signs (last 24 hours): Temp Pulse Resp BP Pulse Ox 97.3 F L 78 15 104/66 99 04/20/18 12:00 04/20/18 13:24 04/20/18 13:24 04/20/18 13:24 04/20/18 13:24 Intake and Output: 04/20/18 04/20/18 06:59 18:59 Intake Total 1408.5 800 Output Total 490 240 Balance 918.5 560 - Medications Medications: Current Medications Acetaminophen (Tylenol 650 Mg Supp) 650 mg [place] Q6 PRN PRN Reason: for temp 101 and above Last Admin: 04/18/18 21:48 Dose: 650 mg Dextrose (Dextrose 50% Inj) 0 ml IV STAT PRN; Protocol PRN Reason: Hypoglycemia Protocol Dextrose (Glutose 15) 0 gm PO ONCE PRN; Protocol PRN Reason: Hypoglycemia Protocol Glucagon (Glucagen Diagnostic Kit) 0 mg IM STAT PRN; Protocol PRN Reason: Hypoglycemia Protocol Heparin Sodium (Porcine) (Heparin) 5,000 units SC Q12H [facility] Last Admin: 04/20/18 08:48 Dose: 5,000 units Dextrose (Dextrose 5% In Water 1000 Ml) 1,000 mls @ 0 mls/hr IV .Q0M PRN; Protocol; Per Protocol PRN Reason: Hypoglycemia Protocol Potassium Chloride/Dextrose (Potassium Chl 20 Meq In D5w) 1,000 mls @ 50 mls/ hr IV .Q20H [facility] Last Admin: 04/20/18 10:23 Dose: Not Given Meropenem 1 gm/ Sodium (Chloride) 100 mls @ 100 mls/hr IVPB ONCE ONE PRN Reason: Protocol Stop: 04/20/18 14:59 Insulin Glargine (Lantus) 14 unit SC HS [facility] Insulin Human Regular (Novolin R) 0 unit SC ACHS [facility] PRN Reason: Protocol Last Admin: 04/20/18 12:17 Dose: Not Given - Labs Labs: 04/20/18 06:20 04/20/18 06:20 PT 14.3 SECONDS (9.7-12.2) H 04/18/18 09:50 INR 1.3 08/18/18 09:50 APTT 33 SECONDS (21-34) 04/18/18 09:50 - Constitutional Appears: Non-toxic, Chronically Ill - Head Exam Head Exam: NORMOCEPHALIC - Eye Exam Eye Exam: PERRL - ENT Exam ENT Exam: Mucous Membranes Dry - Neck Exam Neck Exam: absent: Lymphadenopathy - Respiratory Exam Respiratory Exam: Decreased Breath Sounds - Cardiovascular Exam Cardiovascular Exam: REGULAR RHYTHM - GI/Abdominal Exam GI & Abdominal Exam: Distended, Soft - Rectal Exam Rectal Exam: Deferred - Exam Exam: NORMAL INSPECTION - Extremities Exam Extremities Exam: absent: Pedal Edema Additional comments: right bka - Back Exam Back Exam: absent: CVA tenderness (L), CVA tenderness (R) Assessment and Plan (1) Acute respiratory failure with hypoxemia Status: Acute (2) Severe sepsis Status: Acute (3) Altered mental status Status: Acute (4) CKD (chronic kidney disease) stage 3, GFR 30-59 ml/min Status: Acute (5) DM type 2 (diabetes mellitus, type 2) Status: Acute (6) UTI (urinary tract infection) Status: Acute - Assessment and Plan (Free Text) Assessment: iv merrem ordered
[2018-04-20] MEDS ORDERED: Meropenem 500 MG in Sodium Chloride 0.9% 100 ML IVPB SCH (15:00)
--- NOTE | 2018-04-20 15:41 | CP.PCM.PN ---
Subjective - Date & Time of Evaluation Date of Evaluation: 04/20/18 Time of Evaluation: 12:30 - Subjective Subjective: Patient seen and examined Patient extubated and in no respiratory distress Afebrile Patient is awake and responsive Requesting to eat Objective - Vital Signs/Intake and Output Vital Signs (last 24 hours): Temp Pulse Resp BP Pulse Ox 97.3 F L 78 15 104/66 99 04/20/18 12:00 04/20/18 13:24 04/20/18 13:24 04/20/18 13:24 04/20/18 13:24 Intake and Output: 04/20/18 04/20/18 06:59 18:59 Intake Total 1408.5 800 Output Total 490 240 Balance 918.5 560 - Medications Medications: Current Medications Acetaminophen (Tylenol 650 Mg Supp) 650 mg [place] Q6 PRN PRN Reason: for temp 101 and above Last Admin: 04/18/18 21:48 Dose: 650 mg Dextrose (Dextrose 50% Inj) 0 ml IV STAT PRN; Protocol PRN Reason: Hypoglycemia Protocol Dextrose (Glutose 15) 0 gm PO ONCE PRN; Protocol PRN Reason: Hypoglycemia Protocol Glucagon (Glucagen Diagnostic Kit) 0 mg IM STAT PRN; Protocol PRN Reason: Hypoglycemia Protocol Heparin Sodium (Porcine) (Heparin) 5,000 units SC Q12H [facility] Last Admin: 04/20/18 08:48 Dose: 5,000 units Dextrose (Dextrose 5% In Water 1000 Ml) 1,000 mls @ 0 mls/hr IV .Q0M PRN; Protocol; Per Protocol PRN Reason: Hypoglycemia Protocol Potassium Chloride/Dextrose (Potassium Chl 20 Meq In D5w) 1,000 mls @ 50 mls/ hr IV .Q20H [facility] Last Admin: 04/20/18 10:23 Dose: Not Given Meropenem 500 mg/ Sodium (Chloride) 100 mls @ 100 mls/hr IVPB Q6H [facility] PRN Reason: Protocol Insulin Glargine (Lantus) 20 unit SC HS [facility] Insulin Human Regular (Novolin R) 0 unit SC ACHS [facility] PRN Reason: Protocol Last Admin: 04/20/18 12:17 Dose: Not Given - Labs Labs: 04/20/18 06:20 04/20/18 06:20 PT 14.3 SECONDS (9.7-12.2) H 04/18/18 09:50 INR 1.3 04/18/18 09:50 APTT 33 SECONDS (21-34) 04/18/18 09:50 - Head Exam Head Exam: ATRAUMATIC, NORMOCEPHALIC - ENT Exam ENT Exam: Mucous Membranes Moist - Neck Exam Neck Exam: Normal Inspection - Respiratory Exam Respiratory Exam: Clear to Ausculation Bilateral - Cardiovascular Exam Cardiovascular Exam: REGULAR RHYTHM - GI/Abdominal Exam GI & Abdominal Exam: Soft, Normal Bowel Sounds Assessment and Plan (1) Acute respiratory failure with hypoxemia Assessment & Plan: status post extubation Continue antibiotics Followup chest x-ray Status: Acute (2) Severe sepsis Status: Acute (3) CKD (chronic kidney disease) stage 3, GFR 30-59 ml/min Status: Acute (4) DM type 2 (diabetes mellitus, type 2) Status: Acute
[2018-04-20] MEDS: (Novolin R) Insulin Human Regular 100 units/ml vial SC SCH ×2 (16:47→22:00)
--- NOTE | 2018-04-20 18:59 | PN ---
Copied To: Kristin Arredondo MD Attending MD: Kristin Arredondo MD DATE: 04/20/2018 ENDO FOLLOWUP NOTE LOCATION: ICU Room 12 SUBJECTIVE: This is a 72-year-old female with recent uncontrolled type 2 insulin-requiring diabetes, now being followed closely in ICU for hemodynamic monitoring from a recent bout of acute respiratory failure, currently extubated and has improved remarkably overnight clinically as noted. Her glycemic levels are also fluctuating, but much improved and have ranged from 145 to 183 mg/dL. LABORATORY DATA: Her chemistries showed BUN of 36, sodium 152, potassium 3.4, chloride 126, CO2 of 20, glucose 252, and creatinine 1.2. Her bedtime glucose was 278 mg/dL. ASSESSMENT AND PLAN: So, at this time, we will increase her basal insulin with Lantus to be given as 20 units subcu at bedtime daily to start tonight. We will continue the low-dose correction scale using regular insulin as given and we will observe the glycemic fluctuations with mealtime and if hyperglycemic levels supervene, then we will start her on the low-dose prandial insulin as indicated. We will also continue the low-dose correction scale using regular insulin as ordered. We will obtain serial chemistries and supplement accordingly as needed. We will follow her and advise accordingly. Kristin Arredondo MD
--- NOTE | 2018-04-20 20:33 | CP.PCM.PN ---
Subjective - Date & Time of Evaluation Date of Evaluation: 04/20/18 Time of Evaluation: 08:30 - Subjective Subjective: extubated alert, NAD breathing comfortably Objective - Vital Signs/Intake and Output Vital Signs (last 24 hours): Temp Pulse Resp BP Pulse Ox 97.4 F L 82 19 105/80 99 04/20/18 16:00 04/20/18 19:25 04/20/18 19:25 04/20/18 19:25 04/20/18 19:00 Intake and Output: 04/20/18 04/21/18 18:59 06:59 Intake Total 1150 50 Output Total 360 0 Balance 790 50 - Medications Medications: Current Medications Acetaminophen (Tylenol 650 Mg Supp) 650 mg [place] Q6 PRN PRN Reason: for temp 101 and above Last Admin: 04/18/18 21:48 Dose: 650 mg Dextrose (Dextrose 50% Inj) 0 ml IV STAT PRN; Protocol PRN Reason: Hypoglycemia Protocol Dextrose (Glutose 15) 0 gm PO ONCE PRN; Protocol PRN Reason: Hypoglycemia Protocol Glucagon (Glucagen Diagnostic Kit) 0 mg IM STAT PRN; Protocol PRN Reason: Hypoglycemia Protocol Heparin Sodium (Porcine) (Heparin) 5,000 units SC Q12H [facility] Last Admin: 04/20/18 19:50 Dose: 5,000 units Dextrose (Dextrose 5% In Water 1000 Ml) 1,000 mls @ 0 mls/hr IV .Q0M PRN; Protocol; Per Protocol PRN Reason: Hypoglycemia Protocol Potassium Chloride/Dextrose (Potassium Chl 20 Meq In D5w) 1,000 mls @ 50 mls/ hr IV .Q20H [facility] Last Admin: 04/20/18 10:23 Dose: Not Given Meropenem 500 mg/ Sodium (Chloride) 100 mls @ 100 mls/hr IVPB Q6H [facility] PRN Reason: Protocol Insulin Glargine (Lantus) 20 unit SC HS [facility] Insulin Human Regular (Novolin R) 0 unit SC ACHS [facility] PRN Reason: Protocol Last Admin: 04/20/18 16:47 Dose: Not Given - Labs Labs: 04/20/18 06:20 04/20/18 06:20 PT 14.3 SECONDS (9.7-12.2) H 04/18/18 09:50 INR 1.3 04/18/18 09:50 APTT 33 SECONDS (21-34) 04/18/18 09:50 - Constitutional Appears: Non-toxic - Head Exam Head Exam: NORMAL INSPECTION - Eye Exam Eye Exam: absent: Scleral icterus - ENT Exam ENT Exam: Mucous Membranes Moist - Neck Exam Neck Exam: Full ROM - Respiratory Exam Respiratory Exam: Clear to Ausculation Bilateral - Cardiovascular Exam Cardiovascular Exam: REGULAR RHYTHM - GI/Abdominal Exam GI & Abdominal Exam: Soft - Extremities Exam Extremities Exam: Pedal Edema - Neurological Exam Neurological Exam: Alert, Oriented x3 Assessment and Plan - Assessment and Plan (Free Text) Assessment: Sepsis CAD T2dm PVD Dehydration Plan: Cont fluids Cont Abtx
[2018-04-20] MEDS: (Lantus) Insulin Glargine, Recombinant SC SCH (21:44)
[2018-04-20] MEDS: Meropenem 500 MG in Sodium Chloride 0.9% 100 ML IVPB SCH (21:45)
[2018-04-20] MEDS ORDERED: (Lantus) Insulin Glargine, Recombinant SC SCH (22:00)
--- NOTE | 2018-04-20 23:46 | CARD ---
APPROVED REPORT Date of service: 04/19/2018 EKG Measurement Heart [id number] <Conclusion> Normal sinus rhythm Normal ECG
[2018-04-21] MEDS: Potassium Ch 20mEq in D5W 1,000 ML IV SCH ×2 (00:36→07:08)
[2018-04-21] MEDS: Meropenem 500 MG in Sodium Chloride 0.9% 100 ML IVPB SCH ×4 (03:15→21:05)
[2018-04-21 06:22] LABS: HEMOGLOBIN 10.5 g/dL (11.0-16.0); MEAN CELL VOLUME 83.8 fL (81.0-99.0); MEAN CORPUSCULAR HEMOGLOBIN 27.4 pg (27.0-31.0); MEAN CORPUSCULAR HGB CONC 32.6 g/dL (33.0-37.0); MEAN PLATELET VOLUME 11.3 fL (7.2-11.7); RBC 3.85 Mil/uL (3.80-5.20); RED CELL DISTRIBUTION WIDTH 16.7 % (11.5-14.5); WHITE BLOOD COUNT 6.6 K/uL (4.8-10.8)
[2018-04-21 06:39] LABS: ALBUMIN 2.5 g/dL (3.5-5.0); ALT/SGPT 29 U/L (9-52); AST/SGOT 24 U/L (14-36); BLOOD UREA NITROGEN 18 mg/dL (7-17); CALCIUM 8.5 mg/dl (8.6-10.4); GFR AFRICAN-AMERICAN > 60; GFR NON-AFRICAN AMERICAN > 60
[2018-04-21] MEDS: (Novolin R) Insulin Human Regular 100 units/ml vial SC SCH ×4 (07:36→22:04)
--- NOTE | 2018-04-21 10:08 | CP.PCM.PN ---
Subjective - Date & Time of Evaluation Date of Evaluation: 04/21/18 Time of Evaluation: 08:00 - Subjective Subjective: WEAK LETHARGIC NAD Objective - Vital Signs/Intake and Output Vital Signs (last 24 hours): Temp Pulse Resp BP Pulse Ox 97.7 F 80 24 142/75 99 04/21/18 08:00 04/21/18 08:00 04/21/18 08:00 04/21/18 07:56 04/21/18 08:00 Intake and Output: 04/21/18 04/21/18 06:59 18:59 Intake Total 700 100 Output Total 300 Balance 400 100 - Medications Medications: Current Medications Acetaminophen (Tylenol 650 Mg Supp) 650 mg [place] Q6 PRN PRN Reason: for temp 101 and above Last Admin: 04/18/18 21:48 Dose: 650 mg Dextrose (Dextrose 50% Inj) 0 ml IV STAT PRN; Protocol PRN Reason: Hypoglycemia Protocol Dextrose (Glutose 15) 0 gm PO ONCE PRN; Protocol PRN Reason: Hypoglycemia Protocol Glucagon (Glucagen Diagnostic Kit) 0 mg IM STAT PRN; Protocol PRN Reason: Hypoglycemia Protocol Heparin Sodium (Porcine) (Heparin) 5,000 units SC Q12H [facility] Last Admin: 04/21/18 07:29 Dose: 5,000 units Dextrose (Dextrose 5% In Water 1000 Ml) 1,000 mls @ 0 mls/hr IV .Q0M PRN; Protocol; Per Protocol PRN Reason: Hypoglycemia Protocol Potassium Chloride/Dextrose (Potassium Chl 20 Meq In D5w) 1,000 mls @ 50 mls/ hr IV .Q20H [facility] Last Admin: 04/21/18 07:08 Dose: Not Given Meropenem 500 mg/ Sodium (Chloride) 100 mls @ 100 mls/hr IVPB Q6H [facility] PRN Reason: Protocol Last Admin: 04/21/18 09:09 Dose: 100 mls/hr Insulin Glargine (Lantus) 20 unit SC HS [facility] Last Admin: 04/20/18 21:44 Dose: 20 u Insulin Human Regular (Novolin R) 0 unit SC ACHS [facility] PRN Reason: Protocol Last Admin: 04/21/18 07:36 Dose: Not Given - Labs Labs: 04/21/18 06:16 04/21/18 06:15 PT 14.3 SECONDS (9.7-12.2) H 04/18/18 09:50 INR 1.3 04/18/18 09:50 APTT 33 SECONDS (21-34) 04/18/18 09:50 - Constitutional Appears: Non-toxic, Chronically Ill - Head Exam Head Exam: NORMOCEPHALIC - Eye Exam Eye Exam: PERRL - ENT Exam ENT Exam: Mucous Membranes Dry - Neck Exam Neck Exam: absent: Lymphadenopathy - Respiratory Exam Respiratory Exam: Decreased Breath Sounds - Cardiovascular Exam Cardiovascular Exam: REGULAR RHYTHM - GI/Abdominal Exam GI & Abdominal Exam: Distended - Rectal Exam Rectal Exam: Deferred - Exam Exam: NORMAL INSPECTION - Extremities Exam Extremities Exam: absent: Pedal Edema - Back Exam Back Exam: absent: CVA tenderness (L), CVA tenderness (R) - Skin Skin Exam: Dry Additional comments: RIGHT BKA + Assessment and Plan (1) Acute respiratory failure with hypoxemia Status: Acute (2) Severe sepsis Status: Acute (3) Altered mental status Status: Acute (4) CKD (chronic kidney disease) stage 3, GFR 30-59 ml/min Status: Acute (5) DM type 2 (diabetes mellitus, type 2) Status: Acute (6) UTI (urinary tract infection) Status: Acute (7) ESBL (extended spectrum beta-lactamase) producing bacteria infection Status: Acute
--- NOTE | 2018-04-21 12:02 | PN ---
Copied To: Haja Pink DO Attending MD: Haja Pink DO DATE: 04/21/2018 SUBJECTIVE: I saw her resting comfortably in the intensive care unit. She is alert. She is smiling. She is coughing still, but she is feeling much better. She is on dextrose, Glucagon, Glutose, heparin, Lantus, Merrem, Novolin, potassium replacement and Tylenol. PHYSICAL EXAMINATION: VITAL SIGNS: Temp 98.2, 78 pulse, 137/61 blood pressure, 21 respiratory rate, 99% O2 sat on nasal cannula. HEENT: Head is atraumatic and normocephalic. She is looking at me. She is smiling. She is coughing a little bit, but not bad. HEART: Regular rate. LUNGS: Decreased breath sounds, but in the most part clear, occasional congestion, but she clears with cough. ABDOMEN: Soft, obese, nontender. EXTREMITIES: Right AKA, left leg is okay status post fem-pop a few weeks ago. LABORATORY DATA: She has a 6.6 white count, 10.5 hemoglobin, 32.2 hematocrit with a 106 platelets, which is better. She has a 146 sodium, potassium 3.4, replace potassium, BUN 18, creatinine 0.9, , sugar is 99, calcium is 8.5, phosphorus is 4.4, magnesium is 2, total bili is 0.4, AST is 24, ALT is 29, alk phos 92, total protein is 5.1. Urine was moderate, negative for C. diff. ASSESSMENT AND PLAN: She is being seen by Endocrinology, Pulmonology, Infectious Disease, Cardiology. She is in the intensive care unit right now. She is on intravenous Merrem for extended spectrum beta lactamase protein in the urine. She has acute respiratory failure with hypoxemia, severe sepsis, altered mental status, chronic kidney disease stage III, diabetes, and urinary tract infection. We will continue aggressive treatment and care, check her labs tomorrow and we can get her out of the intensive care unit. We will continue the aggressive treatment and care on Raegan Damon. Haja Pink DO [facility] # [id number] MTDD
[2018-04-21 12:10] VITALS: RESP 20
[2018-04-21] MEDS ORDERED: Potassium & Sodium Phosphate PO ONE (15:00)
--- NOTE | 2018-04-21 15:29 | PN ---
Copied To: Kristin Arredondo MD Attending MD: Kristin Arredondo MD DATE: 04/21/2018 ENDO FOLLOWUP NOTE LOCATION: In room 371. SUBJECTIVE: This is 72-year-old female with recent presentation with acute respiratory failure and has since then been successfully extubated and has improved clinically and hemodynamically as noted thereof. Her glycemic levels have also improved remarkably and the glucose levels overnight have ranged from 106 to 146 mg/dL. LABORATORY DATA: Her chemistry today showed a BUN of 18, sodium 146, potassium 3.4, chloride , CO2 of 18, glucose 99, and creatinine 0.9. ASSESSMENT AND PLAN: So at this time, to allow for dose equilibration, we will continue the basal insulin given as Lantus at 20 units subcutaneously at bedtime daily as given. We will continue also the low-dose correction scale using regular insulin as ordered. We will obtain serial chemistries and supplement accordingly as needed. We will follow. Kristin Arredondo MD
--- NOTE | 2018-04-21 16:55 | CARD ---
APPROVED REPORT Date of service: 04/18/2018 EKG Measurement Heart [id number] <Conclusion> Sinus tachycardia with premature atrial complexes Inferior infarct, age undetermined Abnormal ECG
[2018-04-21] MEDS: (Lantus) Insulin Glargine, Recombinant SC SCH (22:07)
[2018-04-22] MEDS: Potassium Ch 20mEq in D5W 1,000 ML IV SCH ×2 (03:10→21:18)
[2018-04-22] MEDS: Meropenem 500 MG in Sodium Chloride 0.9% 100 ML IVPB SCH ×4 (03:12→21:12)
[2018-04-22 07:51] LABS: ALBUMIN 2.5 g/dL (3.5-5.0); ALT/SGPT 30 U/L (9-52); AST/SGOT 24 U/L (14-36); BLOOD UREA NITROGEN 10 mg/dL (7-17); CALCIUM 7.8 mg/dl (8.6-10.4); GFR AFRICAN-AMERICAN > 60; GFR NON-AFRICAN AMERICAN > 60
[2018-04-22] MEDS: (Novolin R) Insulin Human Regular 100 units/ml vial SC SCH ×3 (07:56→20:54)
[2018-04-22] MEDS ORDERED: Potassium Chloride 10 mEq ER Tab PO ONE (08:00)
--- NOTE | 2018-04-22 09:54 | PN ---
Copied To: Haja Pink DO Attending MD: Haja Pink DO DATE: 04/22/2018 SUBJECTIVE: I saw her in room 355. She is out of the Intensive Care Unit. She is alert, smiling, comfortable, but pleasantly confused. She said she knew me, but could not say my name. She said she knows where she is, but could not say where she is. No pain. She appetite, not hungry now and no pain. PHYSICAL EXAMINATION: VITAL SIGNS: She has 98.6 temp, 80 pulse, 120/76 blood pressure, 20 respiratory rate, 99% O2 sat on nasal cannula. HEENT: Head is atraumatic and normocephalic. HEART: Regular rate. LUNGS: Decreased breath sounds, but clear. ABDOMEN: Soft, obese, and nontender. EXTREMITIES: Right AKA and left leg is okay, status post fem-pop with Dr. Lam. MEDICATIONS: She is currently on dextrose, Glucagon, heparin, potassium replacement, Lantus, Merrem IV, morphine, NicoDerm, Novolin, Tylenol. LABORATORY DATA: Blood test, she has a 146 sodium, potassium of 3.4, potassium was replaced, BUN 18, creatinine 0.9, GFR is greater than 60, sugar is 144, calcium is 8.5, phosphorous 1.4, magnesium 2. Total bilirubin is 0.4, AST is 24, ALT is 29, alk phos is 92, total protein is 5.1. She has a 6.6 white count, 10.5 hemoglobin, 32.2 hematocrit, 106 platelets. ASSESSMENT AND PLAN: I consulted Dr. Cha, Neurology for evaluation of her change in mentation. She is being seen by Endocrinology, Infectious Disease, Pulmonology, Cardiology, and she has got change in mentation on top of everything else, that is why she is here for. She was in the intensive care unit with below knee amputation, unresponsiveness, sepsis, and change in mentation. We will check her labs Haja Pink DO [facility]
[2018-04-22 16:34] VITALS: BP 149/71; PULSE 80; TEMP 98.7; O2SAT 98
--- NOTE | 2018-04-22 17:07 | CP.PCM.PN ---
Subjective - Date & Time of Evaluation Date of Evaluation: 04/22/18 Time of Evaluation: 17:07 - Subjective Subjective: Alert, awake, has no acte pain or distress. Objective - Vital Signs/Intake and Output Vital Signs (last 24 hours): Temp Pulse Resp BP Pulse Ox 98.7 F 80 20 149/71 98 04/22/18 16:00 04/22/18 16:00 04/22/18 16:00 04/22/18 16:00 04/22/18 16:00 Intake and Output: 04/22/18 04/22/18 06:59 18:59 Intake Total 970 1000 Output Total 101 Balance 869 1000 - Medications Medications: Current Medications Acetaminophen (Tylenol 650 Mg Supp) 650 mg IN Q6 PRN PRN Reason: for temp 101 and above Last Admin: 04/18/18 21:48 Dose: 650 mg Dextrose (Dextrose 50% Inj) 0 ml IV STAT PRN; Protocol PRN Reason: Hypoglycemia Protocol Dextrose (Glutose 15) 0 gm PO ONCE PRN; Protocol PRN Reason: Hypoglycemia Protocol Glucagon (Glucagen Diagnostic Kit) 0 mg IM STAT PRN; Protocol PRN Reason: Hypoglycemia Protocol Heparin Sodium (Porcine) (Heparin) 5,000 units SC Q12H [facility] Last Admin: 04/22/18 07:56 Dose: 5,000 units Dextrose (Dextrose 5% In Water 1000 Ml) 1,000 mls @ 0 mls/hr IV .Q0M PRN; Protocol; Per Protocol PRN Reason: Hypoglycemia Protocol Potassium Chloride/Dextrose (Potassium Chl 20 Meq In D5w) 1,000 mls @ 50 mls/ hr IV .Q20H [facility] Last Admin: 04/22/18 03:10 Dose: 50 mls/hr Meropenem 500 mg/ Sodium (Chloride) 100 mls @ 100 mls/hr IVPB Q6H [facility] PRN Reason: Protocol Last Admin: 04/22/18 15:07 Dose: 100 mls/hr Insulin Glargine (Lantus) 20 unit SC HS [facility] Last Admin: 04/21/18 22:07 Dose: 20 u Insulin Human Regular (Novolin R) 0 unit SC ACHS [facility] PRN Reason: Protocol Last Admin: 04/22/18 12:14 Dose: 2 units Morphine Sulfate (Morphine) 1 mg IVP Q3 PRN PRN Reason: Pain, moderate (4-7) Last Admin: 04/21/18 20:10 Dose: 1 mg Nicotine (Nicoderm Cq) 1 patch TD DAILY [facility] Last Admin: 04/22/18 11:06 Dose: 1 patch - Labs Labs: 04/21/18 06:16 04/22/18 06:55 PT 14.3 SECONDS (9.7-12.2) H 04/18/18 09:50 INR 1.3 04/18/18 09:50 APTT 33 SECONDS (21-34) 04/18/18 09:50 Assessment and Plan - Assessment and Plan (Free Text) Assessment: Patient admitted from [facility] with sepsis, diagnosed with UTI on iv meropenum to continue for [address] Morgan. Seen and examined, alert, awake, no acute pain or distress noted. Discussed with DR Pink, plan to discharge back to the rehab today. PICC line intact, verbalized understanding.
--- NOTE | 2018-04-22 17:10 | PCM.HF ---
Heart Failure Core Measure - Heart Failure Ejection Fraction: 40 % or Greater (EF 65%) OBEY Inhibitor Prescribed: Yes
--- NOTE | 2018-04-22 19:25 | CP.PCM.PN ---
Subjective - Date & Time of Evaluation Date of Evaluation: 04/22/18 Time of Evaluation: 08:00 - Subjective Subjective: discussed on rounds will need 14 days IV rx Merrem Objective - Vital Signs/Intake and Output Vital Signs (last 24 hours): Temp Pulse Resp BP Pulse Ox 98.7 F 80 20 149/71 98 04/22/18 16:00 04/22/18 16:00 04/22/18 16:00 04/22/18 16:00 04/22/18 16:00 Intake and Output: 04/22/18 04/23/18 18:59 06:59 Intake Total 1000 Balance 1000 - Medications Medications: Current Medications Acetaminophen (Tylenol 650 Mg Supp) 650 mg [place] Q6 PRN PRN Reason: for temp 101 and above Last Admin: 04/18/18 21:48 Dose: 650 mg Dextrose (Dextrose 50% Inj) 0 ml IV STAT PRN; Protocol PRN Reason: Hypoglycemia Protocol Dextrose (Glutose 15) 0 gm PO ONCE PRN; Protocol PRN Reason: Hypoglycemia Protocol Glimepiride (Amaryl) 2 mg PO ACBD [facility] Glucagon (Glucagen Diagnostic Kit) 0 mg IM STAT PRN; Protocol PRN Reason: Hypoglycemia Protocol Heparin Sodium (Porcine) (Heparin) 5,000 units SC Q12H [facility] Last Admin: 04/22/18 07:56 Dose: 5,000 units Potassium Chloride/Dextrose (Potassium Chl 20 Meq In D5w) 1,000 mls @ 50 mls/ hr IV .Q20H [facility] Last Admin: 04/22/18 03:10 Dose: 50 mls/hr Meropenem 500 mg/ Sodium (Chloride) 100 mls @ 100 mls/hr IVPB Q6H [facility] PRN Reason: Protocol Last Admin: 04/22/18 15:07 Dose: 100 mls/hr Insulin Glargine (Lantus) 20 unit SC HS [facility] Last Admin: 04/21/18 22:07 Dose: 20 u Insulin Human Regular (Novolin R) 0 unit SC ACHS [facility] PRN Reason: Protocol Last Admin: 04/22/18 12:14 Dose: 2 units Morphine Sulfate (Morphine) 1 mg IVP Q3 PRN PRN Reason: Pain, moderate (4-7) Last Admin: 04/21/18 20:10 Dose: 1 mg Nicotine (Nicoderm Cq) 1 patch TD DAILY [facility] Last Admin: 04/22/18 11:06 Dose: 1 patch - Labs Labs: 04/21/18 06:16 04/22/18 06:55 PT 14.3 SECONDS (9.7-12.2) H 04/18/18 09:50 INR 1.3 04/18/18 09:50 APTT 33 SECONDS (21-34) 04/18/18 09:50 Assessment and Plan (1) Acute respiratory failure with hypoxemia Status: Acute (2) Severe sepsis Status: Acute (3) Altered mental status Status: Acute (4) CKD (chronic kidney disease) stage 3, GFR 30-59 ml/min Status: Acute (5) DM type 2 (diabetes mellitus, type 2) Status: Acute (6) UTI (urinary tract infection) Status: Acute (7) ESBL (extended spectrum beta-lactamase) producing bacteria infection Status: Acute
--- NOTE | 2018-04-22 19:41 | PN ---
Copied To: Kristin Arredondo MD Attending MD: Kristin Arredondo MD DATE: 04/22/2018 ENDO FOLLOWUP NOTE LOCATION: Room 355. SUBJECTIVE: This is a 72-year-old female with recent uncontrolled type 2 insulin requiring diabetes, presenting here with sudden onset of acute respiratory failure and has since then improved clinically and hemodynamically and has been successfully extubated at this time as noted. Her glycemic levels are fluctuating also related to the variability of her oral intake and the glucose values today have ranged from 161 to 206 mg/dL. It was 144 at bedtime last night. LABORATORY DATA: Her chemistry today showed BUN of 10, sodium 141, potassium 3.8, chloride 115, CO2 of 19, glucose 178, and creatinine is 0.8. ASSESSMENT AND PLAN: So, at this time, we will continue the low dose correction scale using Novolog insulin as ordered to obviate hypoglycemia. Moreover, we will continue her Lantus given as 20 units subcutaneously at bedtime daily as ordered. We will also add a low-dose oral hypoglycemic therapy with Amaryl given as 2 mg p.o. b.i.d. before breakfast and dinner as ordered. We will obtain serial chemistries and supplement accordingly as needed. We will follow. Kristin Arredondo MD
== END 2018-04-22 23:15 | DRG 871 ==
LOC: C.ER 09:18 → C.9I 11:04 → C.3T 04-21 09:34
PROVIDERS: ADMIT Internal Medicine Critical Care Medicine; ATTEND Family Medicine
PROC: 5A1945Z Respiratory Ventilation, 24-96 Consecutive Hours (ICD-10-PCS; principal; 2018-04-18)
PROC: 0BH17EZ Insertion of Endotracheal Airway into Trachea, Via Natural or Artificial Opening (ICD-10-PCS; 2018-04-18)
PROC: 02HV33Z Insertion of Infusion Device into Superior Vena Cava, Percutaneous Approach (ICD-10-PCS; 2018-04-18)
DX: A41.9 Sepsis, unspecified organism (principal); J96.01 Acute respiratory failure with hypoxia; E11.00 Type 2 diabetes mellitus with hyperosmolarity without nonketotic hyperglycemic-hyperosmolar coma (NKHHC); R65.21 Severe sepsis with septic shock; I13.0 Hypertensive heart and chronic kidney disease with heart failure and stage 1 through stage 4 chronic kidney disease, or unspecified chronic kidney disease; N17.9 Acute kidney failure, unspecified; N39.0 Urinary tract infection, site not specified; E86.0 Dehydration; E11.51 Type 2 diabetes mellitus with diabetic peripheral angiopathy without gangrene; E11.22 Type 2 diabetes mellitus with diabetic chronic kidney disease; I50.9 Heart failure, unspecified; I25.10 Atherosclerotic heart disease of native coronary artery without angina pectoris; J44.9 Chronic obstructive pulmonary disease, unspecified; N18.3 Chronic kidney disease, stage 3 (moderate); E78.00 Pure hypercholesterolemia, unspecified; F31.9 Bipolar disorder, unspecified; F17.210 Nicotine dependence, cigarettes, uncomplicated; Z79.4 Long term (current) use of insulin; Z89.511 Acquired absence of right leg below knee; Z95.828 Presence of other vascular implants and grafts; Z91.19 Patient's noncompliance with other medical treatment and regimen; Z91.041 Radiographic dye allergy status; Z79.82 Long term (current) use of aspirin

== ENCOUNTER 2018-07-14 11:07 | Inpatient (IN) | payer MEDICARE, MEDICAID ==
--- NOTE | 2018-07-14 11:17 | C.PDOC ---
History Of Present Illness PMHx: COPD, DM, PVD, HTN PSHx: left fem-pop, right BKA Social History: Former heavy smoker, no alcohol or drug use. Resident of [facility]. [facility] HX DUE TO CC REFERAL FROM [place] DUE TO LOW BP FOR UNK DURATION. PT STATES "I DON'T KNOW WHY I'M HERE" NO COMPLAINT. NO VOMITING, FEVER OR OTHER SX. PT WAS ADMITTED LAST MONTH FOR SEPSIS. PER NH, +NEW ONSET DISCOLORATION ON BL LEGS GOING ON FOR A FEW DAYS. EXAM SLOW SPEECH BUT APPROPRIATE LUNGS ARE CLEAR JACOBSEN IN PLACE RIGHT LEG BKA HAS A MOTTLING ON RIGHT THIGH AND ALSO ON DISTAL LEFT FOOT <Raegan Dexter - Last Filed: 07/14/18 12:47> History Per: Patient History/Exam Limitations: no limitations <Raegan Dexter - Last Filed: 07/14/18 12:47> <Lorraine Main - Last Filed: 07/20/18 18:48> Time Seen by Provider: 07/14/18 11:15 Past Medical History Reviewed: Historical Data, Nursing Documentation, Vital Signs - Medical History PMH: Anxiety, Bipolar Disorder, CHF, COPD, Depression, Diabetes, HTN, Hypercholesterolemia - [facility] Procedures ANGIOPLASTY OF OTHER NON-CORONARY VESSEL(S) (02/28/15) ATHERECTOMY OF OTHER NON-CORONARY VESSEL(S) (02/28/15) BYPASS L FEM ART TO POPLIT ART WITH AUTOL VN, OPEN APPROACH (03/23/18) CERVICAL BIOPSY NEC (03/20/98) COLONOSCOPY (07/28/13) CONTRAST AORTOGRAM (02/28/15) CONTRAST ARTERIOGRAM-LEG (02/28/15) D & C NEC (03/20/98) DILATION OF L COM ILIAC ART WITH INTRALUM DEV, PERC APPROACH (12/01/17) DILATION OF L EXT ILIAC ART WITH INTRALUM DEV, PERC APPROACH (12/01/17) ESOPHAGOGASTRODUODENOSCOPY [EGD] W/CLOSED BIOPSY (10/23/12) FLUOROSCOPY OF AORTA AND BILATERAL LOWER EXTREMITY ARTERIES (12/01/17) FLUOROSCOPY OF LEFT HEART USING LOW OSMOLAR CONTRAST (03/23/18) FLUOROSCOPY OF LEFT LOWER EXTREMITY ARTERIES (03/23/18) FLUOROSCOPY OF MULT COR ART USING L OSM CONTRAST (03/23/18) INJECT/INFUSE ELECTROLYT (08/28/12) INJECT/INFUSE NEC (08/28/12) INSEJ [id number] PERIPHERAL NON-CORONARY VES STENT(S) (02/28/15) INSERTION OF ENDOTRACHEAL AIRWAY INTO TRACHEA, VIA OPENING (04/18/18) INSERTION OF INFUSION DEV INTO SUP VENA CAVA, PERC APPROACH (04/18/18) INSERTION OF INFUSION DEVICE INTO UPPER VEIN, PERC APPROACH (05/31/18) INSERTION OF ONE VASCULAR STENT (02/28/15) MEASURE OF CARDIAC SAMPL & PRESSURE, L HEART, PERC APPROACH (03/23/18) MEDICATION MANAGEMENT (07/16/15) PROCEDURE ON SINGLE VESSEL (02/28/15) PSYCHIAT DRUG THERAP NEC (02/16/15) RESPIRATORY VENTILATION, 24-96 CONSECUTIVE HOURS (04/18/18) TRANSFUSE NONAUT RED BLOOD CELLS IN PERIPH VEIN, PERC (12/01/17) Family History: States: No Known Family Hx - Social History Hx Tobacco Use: No Hx Alcohol Use: No Hx Substance Use: No <Raegan Dexter - Last Filed: 07/14/18 12:47> Vital Signs: Last Vital Signs Temp 100.7 F H 07/14/18 11:10 Pulse 82 07/14/18 12:23 Resp 22 07/14/18 12:23 BP 111/90 07/14/18 12:23 Pulse Ox 98 07/14/18 12:23 - [facility] Procedures ANGIOPLASTY OF OTHER NON-CORONARY VESSEL(S) (02/28/15) ATHERECTOMY OF OTHER NON-CORONARY VESSEL(S) (02/28/15) BYPASS L FEM ART TO POPLIT ART WITH AUTOL VN, OPEN APPROACH (03/23/18) CERVICAL BIOPSY NEC (03/20/98) COLONOSCOPY (07/28/13) CONTRAST AORTOGRAM (02/28/15) CONTRAST ARTERIOGRAM-LEG (02/28/15) D & C NEC (03/20/98) DILATION OF L COM ILIAC ART WITH INTRALUM DEV, PERC APPROACH (12/01/17) DILATION OF L EXT ILIAC ART WITH INTRALUM DEV, PERC APPROACH (12/01/17) ESOPHAGOGASTRODUODENOSCOPY [EGD] W/CLOSED BIOPSY (10/23/12) FLUOROSCOPY OF AORTA AND BILATERAL LOWER EXTREMITY ARTERIES (12/01/17) FLUOROSCOPY OF LEFT HEART USING LOW OSMOLAR CONTRAST (03/23/18) FLUOROSCOPY OF LEFT LOWER EXTREMITY ARTERIES (03/23/18) FLUOROSCOPY OF MULT COR ART USING L OSM CONTRAST (03/23/18) INJECT/INFUSE ELECTROLYT (08/28/12) INJECT/INFUSE NEC (08/28/12) INSEJ [id number] PERIPHERAL NON-CORONARY VES STENT(S) (02/28/15) INSERTION OF ENDOTRACHEAL AIRWAY INTO TRACHEA, VIA OPENING (04/18/18) INSERTION OF INFUSION DEV INTO SUP VENA CAVA, PERC APPROACH (04/18/18) INSERTION OF INFUSION DEVICE INTO UPPER VEIN, PERC APPROACH (05/31/18) INSERTION OF ONE VASCULAR STENT (02/28/15) MEASURE OF CARDIAC SAMPL & PRESSURE, L HEART, PERC APPROACH (03/23/18) MEDICATION MANAGEMENT (07/16/15) PROCEDURE ON SINGLE VESSEL (02/28/15) PSYCHIAT DRUG THERAP NEC (02/16/15) RESPIRATORY VENTILATION, 24-96 CONSECUTIVE HOURS (04/18/18) TRANSFUSE NONAUT RED BLOOD CELLS IN PERIPH VEIN, PERC (12/01/17) <Lorraine Main - Last Filed: 07/20/18 18:48> Review Of Systems Review Of Systems: ROS cannot be obtained secondary to pt's inabilty to answer questions. <Raegan Dexter - Last Filed: 07/14/18 12:47> Physical Exam - Physical Exam Appears: Non-toxic, No Acute Distress, Other (SLOW SPEECH BUT APPROPRIATE) Head: Atraumatic, Normacephalic Eye(s): bilateral: Normal Inspection Nose: Normal Oral Mucosa: Moist Lips: Normal Appearing Neck: Normal ROM Chest: Symmetrical Cardiovascular: Rhythm Regular, No Murmur Respiratory: Normal Breath Sounds, No Accessory Muscle Use Gastrointestinal/Abdominal: Other (JACOBSEN IN PLACE) Extremity: Other (RIGHT LEG BKA HAS A MOTTLING ON RIGHT THIGH AND ALSO ON DISTAL LEFT FOOT) Neurological/Psych: Oriented x3, Normal Speech <Raegan Dexter - Last Filed: 07/14/18 12:47> ED Course And Treatment - Laboratory Results Result Diagrams: 07/20/18 06:05 07/20/18 06:03 <Lorraine Main - Last Filed: 07/20/18 18:48> Progress - Re-Evaluation Re-evaluation Note: 07/14/18 11:28 dr pink @ BEDSIDE, STATES MOTTLING ON LEGS IS NEW BUT IS AT BASELINE MS. WILL ADMIT - Data Reviewed Data Reviewed: Lab, Diagnostic imaging, EKG, Old records <Raegan Dexter - Last Filed: 07/14/18 12:47> Critical Care Time - Critical Care Note Total Time (in mins): 60 Documented critical care: time excludes all time spent performing seperately billable procedures. <Lorraine Main - Last Filed: 07/20/18 18:48> Disposition - Disposition Disposition Time: 13:00 <Raegan Dexter - Last Filed: 07/14/18 12:47> - Disposition Disposition Time: 14:56 <Lorraine Main - Last Filed: 07/20/18 18:48> - Disposition Disposition: HOSPITALIZED Condition: FAIR - Clinical Impression Clinical Impression: Cellulitis, Leukocytosis, Hyperglycemia, Hypotension - Scribe Statement The provider has reviewed the documentation as recorded by the Scribe (Elton Adams) Provider Attestation: All medical record entries made by the Scribe were at my direction and personally dictated by me. I have reviewed the chart and agree that the record accurately reflects my personal performance of the history, physical exam, medical decision making, and the department course for this patient. I have also personally directed, reviewed, and agree with the discharge instructions and disposition. <Raegan Dexter - Last Filed: 07/14/18 12:47> Physician Patient Turnover Patient Signed Over To: Lorraine Main Handoff Comments: FU LABS, DISPO <Raegan Dexter - Last Filed: 07/14/18 12:47> Addendum Addendum: 07/14/18 16:23 Patient staring straight ahead, not speaking on responding to stimuli, left arm stiff appearing, which is an acute change as per the son (in the last ten min). CT head ordered. UA still pending. CXR shows right sided effusion vs infiltrat e. Cipro and Azactam added for broad spectrum coverage in PCN allergic patient. CXR - Accession No. : [id number] Patient Name / ID : CHI Moore / [id number] Exam Date : 07/14/2018 12:15:57 ( Approved ) Study Comment : Sex / Age : F / 72Y Creator : Baldemar Renee MD Dictator : Baldemar Renee MD Janitor : Vending Machine Coin Collector : Baldemar Renee MD Approver2 : Report Date : 07/14/2018 13:57:25 My Comment : Date of service: 07/14/2018 HISTORY: Sepsis Patient COMPARISON: Comparison made with chest radiograph dated 04/19/2018.. FINDINGS: Interval removal ETT LUNGS: Mild pulmonary vascular congestive changes with bilateral lower lobe atelectatic and or infiltrates right greater than left. Small to medium size right-sided ef fusion.. PLEURA: As above. No apparent pneumothorax CARDIOVASCULAR: No aortic atherosclerotic calcification present. Normal cardiac size. No pulmonary vascular congestion. OSSEOUS STRUCTURES: No significant abnormalities. VISUALIZED UPPER ABDOMEN: Normal. OTHER FINDINGS: None. Pulmonary IMPRESSION: vascular congestive changes with bilateral lower lobe atelectatic and or infiltrates right greater than left. Small to medium size right-sided effusion.. 07/14/18 16:45 Patient getting IV NS boluses B/L lines, going up for CT scan head due to acute change in mental status. Will reeval BP when patient returns to ED. Pending UA. 07/14/18 17:49 Patient BP has improved after IV fluids, BP currently 130s/80s. Spoke with Dr. Pink, would like ICU consult, as well as neurology Dr. Cha. 07/14/18 17:59 Spoke with research engineer marine equipment, recommends IV LR at 100ml/hr, continue to monitor BP, discuss with neuro for possible EEG. 07/14/18 18:45 Patient BP continued to dropdespite IV fluids, into 80s then 70s systolic. Right femoral central line inserted by me emergently. Dr. Ha aware. 07/14/18 18:47 Accession No. : [id number] Patient Name / ID : CHI Moore / [id number] Exam Date : 07/14/2018 17:06:12 ( Approved ) Study Comment : Sex / Age : F / 72Y Creator : Baldemar Renee MD Dictator : Baldemar Renee MD Janitor : Vending Machine Coin Collector : Baldemar Renee MD Approver2 : Report Date : 07/14/2018 17:30:13 My Comment : Date of service: 07/14/2018 PROCEDURE: CT HEAD WITHOUT CONTRAST. HISTORY: AMS COMPARISON: Comparison made with prior CT scan of the brain 04/18/2018.. TECHNIQUE: Axial computed tomography images were obtained through the head/brain without intravenous contrast. Radiation dose: Total exam DLP = 994.28 mGy-cm. This CT exam was performed using one or more of the following dose reduction techniques: Automated exposure control, adjustment of the mA and/or kV according to patient size, and/or use of iterative reconstruction technique. FINDINGS: HEMORRHAGE: No acute parenchymal, subarachnoid or extra-axial hemorrhage. BRAIN: Mild diffuse/confluent chronic periventricular white matter ischemic changes are seen extending peripherally into the deep and subcortical white matter both cerebral hemispheres. No obvious parenchymal nor extra-axial mass or collection. Moderate to significant central volume loss with disproportion enlargement ventricles compared sulci. Minor vascular calcifications both carotid siphons VENTRICLES: As mentioned above, there is moderate to fairly significant enlargement of the lateral and 3rd ventricles. Findings in part secondary to central volume loss however the possibility of chronic compensated obstructive hydrocephalus occluded.. Normal pressure hydrocephalus should only be considered if the clinical triad of dementia, ataxia and incontinence is present. CALVARIUM: Unremarkable. PARANASAL SINUSES: Unremarkable as visualized. No significant inflammatory changes. MASTOID AIR CELLS: Unremarkable as visualized. No inflammatory changes. OTHER FINDINGS: Changes of right-sided cataract surgery present. IMPRESSION: Mild diffuse/confluent chronic periventricular white matter ischemic changes are seen extending peripherally into the deep and subcortical white matter both cerebral hemispheres. No obvious parenchymal nor extra-axial mass or collection. Persistent moderate to significant central volume loss with disproportion enlargement ventricles compared sulci. 07/14/18 18:49 repeat EKG atrial fibrillattion 85 bm, normal axis, Q waves IIm III, aVF, no acute ST changes - unknown if prior history. 07/14/18 19:08 As per resp tech, repeat VBG done was done as ABG due to poor peripheral access. Cancelled my ABG order. Repeat VBG results are an ABG. 07/14/18 19:17 BP currently 70s/30s - Will start IV levophed. Patient accpeted by ICU and pending transfer to bed. <Lorraine Main - Last Filed: 07/20/18 18:48>
[2018-07-14] MEDS ORDERED: Vancomycin 1 gm/NS 200 ml 1 GM/200 ML BAG IVPB STA (11:26)
[2018-07-14 11:48] VITALS: BMI 23.8
[2018-07-14 12:06] LABS: VENOUS BLOOD GAS BASE EXCESS -5.6 mmol/L (0.0-2.0); VENOUS BLOOD GAS PCO2 35 mmHg (40-60); VENOUS BLOOD GAS PO2 99 mm/Hg (30-55); VENOUS BLOOD PH 7.35 (7.32-7.43)
[2018-07-14 13:23] LABS: BASO # 0.1 K/uL (0.0-0.2); BASO % 0.7 % (0.0-2.0); EOS % 0.1 % (0.0-4.0); HEMOGLOBIN 10.8 g/dL (11.0-16.0); LYMPH # 1.8 K/uL (1.0-4.3); LYMPH % 10.7 % (20.0-40.0); MEAN CELL VOLUME 82.6 fL (81.0-99.0); MEAN CORPUSCULAR HEMOGLOBIN 25.3 pg (27.0-31.0); MEAN CORPUSCULAR HGB CONC 30.6 g/dL (33.0-37.0); MEAN PLATELET VOLUME 9.9 fL (7.2-11.7); MONO % 5.7 % (0.0-10.0); NEUT # 13.8 K/uL (1.8-7.0); NEUT % 82.8 % (50.0-75.0); NRBC % 0.1 % (0.0-2.0); RBC 4.27 Mil/uL (3.80-5.20); RED CELL DISTRIBUTION WIDTH 17.7 % (11.5-14.5)
[2018-07-14 13:31] LABS: WHITE BLOOD COUNT 16.7 K/uL (4.8-10.8)
[2018-07-14 13:38] LABS: INR 1.4; PROTHROMBIN TIME 15.6 SECONDS (9.7-12.2)
--- NOTE | 2018-07-14 14:02 | RAD ---
Date of service: 07/14/2018 HISTORY: Sepsis Patient COMPARISON: Comparison made with chest radiograph dated 04/19/2018.. FINDINGS: Interval removal ETT LUNGS: Mild pulmonary vascular congestive changes with bilateral lower lobe atelectatic and or infiltrates right greater than left. Small to medium size right-sided effusion.. PLEURA: As above. No apparent pneumothorax CARDIOVASCULAR: No aortic atherosclerotic calcification present. Normal cardiac size. No pulmonary vascular congestion. OSSEOUS STRUCTURES: No significant abnormalities. VISUALIZED UPPER ABDOMEN: Normal. OTHER FINDINGS: None. Pulmonary IMPRESSION: vascular congestive changes with bilateral lower lobe atelectatic and or infiltrates right greater than left. Small to medium size right-sided effusion..
[2018-07-14] MEDS ORDERED: Vancomycin 1 GM 1 GM/250 ML BAG IVPB ONE (14:17)
[2018-07-14 14:32] LABS: ALB/GLOB RATIO 0.9 (1.0-2.1); CALCIUM 9.4 mg/dl (8.6-10.4)
[2018-07-14] MEDS ORDERED: Sodium Chloride 0.9% 500 ML IV ONE ×2 (14:34→16:41)
[2018-07-14] MEDS ORDERED: (Novolin R) Insulin Human Regular 100 units/ml vial IVP ONE (14:34)
[2018-07-14] MEDS ORDERED: Ciprofloxacin 400mg/200ml D5W 400 MG/200 ML BAG IV STA (16:26)
[2018-07-14] MEDS ORDERED: Aztreonam 2 GM in Sodium Chloride 0.9% 100 ML IVPB STA (16:40)
[2018-07-14] MEDS ORDERED: (Novolin R) Insulin Human Regular 100 units/ml vial ONE (16:46)
[2018-07-14] MEDS ORDERED: Ciprofloxacin 400mg/200ml D5W 400 MG/200 ML BAG IVPB ONE (16:46)
[2018-07-14 17:34] LABS: SQUAMOUS EPITHIAL 1 /hpf (0-5); URINE BACTERIA RARE (<OCC); URINE BILIRUBIN NEGATIVE (NEGATIVE); URINE BLOOD 1+ (NEGATIVE); URINE CLARITY Hazy (Clear); URINE COLOR Yellow (YELLOW); URINE GLUCOSE (UA) 1+ mg/dL (Normal); URINE LEUKOCYTE ESTERASE 3+ Leu/uL (Negative); URINE PROTEIN NEGATIVE (NEGATIVE); URINE UROBILINOGEN NORMAL mg/dL (0.2-1.0)
--- NOTE | 2018-07-14 17:35 | CT ---
Date of service: 07/14/2018 PROCEDURE: CT HEAD WITHOUT CONTRAST. HISTORY: AMS COMPARISON: Comparison made with prior CT scan of the brain 04/18/2018.. TECHNIQUE: Axial computed tomography images were obtained through the head/brain without intravenous contrast. Radiation dose: Total exam DLP = 994.28 mGy-cm. This CT exam was performed using one or more of the following dose reduction techniques: Automated exposure control, adjustment of the mA and/or kV according to patient size, and/or use of iterative reconstruction technique. FINDINGS: HEMORRHAGE: No acute parenchymal, subarachnoid or extra-axial hemorrhage. BRAIN: Mild diffuse/confluent chronic periventricular white matter ischemic changes are seen extending peripherally into the deep and subcortical white matter both cerebral hemispheres. No obvious parenchymal nor extra-axial mass or collection. Moderate to significant central volume loss with disproportion enlargement ventricles compared sulci. Minor vascular calcifications both carotid siphons VENTRICLES: As mentioned above, there is moderate to fairly significant enlargement of the lateral and 3rd ventricles. Findings in part secondary to central volume loss however the possibility of chronic compensated obstructive hydrocephalus occluded.. Normal pressure hydrocephalus should only be considered if the clinical triad of dementia, ataxia and incontinence is present. CALVARIUM: Unremarkable. PARANASAL SINUSES: Unremarkable as visualized. No significant inflammatory changes. MASTOID AIR CELLS: Unremarkable as visualized. No inflammatory changes. OTHER FINDINGS: Changes of right-sided cataract surgery present. IMPRESSION: Mild diffuse/confluent chronic periventricular white matter ischemic changes are seen extending peripherally into the deep and subcortical white matter both cerebral hemispheres. No obvious parenchymal nor extra-axial mass or collection. Persistent moderate to significant central volume loss with disproportion enlargement ventricles compared sulci.
[2018-07-14] MEDS: (Novolog) Insulin Aspart, Recombinant 100 u/ml 10 ml vial SC SCH ×3 (17:40→22:45)
[2018-07-14] MEDS ORDERED: (Novolog) Insulin Aspart, Recombinant 100 u/ml 10 ml vial ONE (17:47)
[2018-07-14] MEDS ORDERED: Sodium Chloride 0.9% 1,000 ML IV ONE (17:57)
[2018-07-14] MEDS ORDERED: Lactated Ringer's 1,000 ML IV ONE (17:59)
--- NOTE | 2018-07-14 20:45 | CP.PCM.CON ---
History of Present Illness - History of Present Illness History of Present Illness: 72 year old female with PMHx of PVD s/p multiple endovascular stent placements to left iliac, SFA and popliteal, DM, HTN, hypercholesterolemia, right BKA, bipolar depression disorder with multiple psychiatric admissions, LLE fem-pop by pass with reversed GSV graft, multiple admissions for altered mental status. Patient was recently discharged from [facility], then readmitted to [place] with AMS, with what was believed to be recurrent septic episodes from UTI. Now presents with AMS, and hypotension possibly secondary to sepsis. Also starting to consider if this is progressive dementia. Review of Systems - Review of Systems Systems not reviewed;Unavailable: Altered Mental Status Past Patient History - Infectious Disease Hx of Infectious Diseases: None - Tetanus Immunizations Tetanus Immunization: Unknown - Past Medical History & Family History Past Medical History?: Yes - Past Social History Smoking Status: Former Smoker - CARDIAC Hx Congestive Heart Failure: Yes Hx Hypercholesterolemia: Yes Hx Hypertension: Yes - PULMONARY Hx Chronic Obstructive Pulmonary Disease (COPD): Yes - NEUROLOGICAL Hx Seizures: No - HEENT Hx HEENT Problems: Yes Hx Cataracts: Yes - RENAL Hx Chronic Kidney Disease: No - ENDOCRINE/METABOLIC Hx Endocrine Disorders: Yes Hx Diabetes Mellitus Type 2: Yes - HEMATOLOGICAL/ONCOLOGICAL Hx Human Immunodeficiency Virus (HIV): No - INTEGUMENTARY Hx Dermatological Problems: No Other/Comment: pvd - MUSCULOSKELETAL/RHEUMATOLOGICAL Hx Musculoskeletal Disorders: Yes Hx Falls: No Other/Comment: RIGHT BKA - GASTROINTESTINAL Hx Gastrointestinal Disorders: No - GENITOURINARY/GYNECOLOGICAL Hx Sexually Transmitted Disorders: No - PSYCHIATRIC Hx Anxiety: Yes Hx Bipolar Disorder: Yes Hx Depression: Yes Hx Substance Use: No - SURGICAL HISTORY Hx Mastectomy: No Hx Orthopedic Surgery: Yes - ANESTHESIA Hx Anesthesia: Yes Hx Anesthesia Reactions: No Hx Malignant Hyperthermia: No Meds Allergies/Adverse Reactions: Allergies Allergy/AdvReac Type Severity Reaction Status Date / Time Iodinated Contrast- Oral and Allergy ANAPHYLAXIS Verified 07/14/18 11:35 IV Dye Penicillins Allergy ANAPHYLAXIS Verified 07/14/18 11:35 aminothiol Allergy ANAPHYLAXIS Uncoded 05/31/18 20:30 - Medications Medications: Current Medications Divalproex Sodium (Depakote Er) 250 mg PO HS XAVIER Lactated Ringer's (Lactated Ringer's) 1,000 mls @ 100 mls/hr IV .Q10H ONE Stop: 07/15/18 03:58 Last Admin: 07/14/18 19:01 Dose: 100 mls/hr Norepinephrine Bitartrate 4 mg (/ Sodium Chloride) 254 mls @ 15.24 mls/hr IV .[id number] STA; Protocol Stop: 07/15/18 11:56 Last Admin: 07/14/18 19:35 Dose: 4 mcg/min, 15.24 mls/hr Influenza Virus Vaccine (Fluzone Quad [id number]) 60 mcg IM .ONCE ONE Stop: 07/16/18 10:01 Insulin Aspart (Novolog) 0 unit SC ACHS [facility]; Protocol Last Admin: 07/14/18 17:40 Dose: 10 units Pneumococcal Polyvalent Vaccine (Pneumovax 23 Vaccine) 0.5 ml IM .ONCE ONE Stop: 07/16/18 10:01 Physical Exam - Constitutional Appears: Unkempt - Head Exam Head Exam: ATRAUMATIC, NORMAL INSPECTION, NORMOCEPHALIC - Eye Exam Eye Exam: EOMI, Normal appearance, PERRL - ENT Exam ENT Exam: Mucous Membranes Dry - Respiratory Exam Respiratory Exam: Clear to Auscultation Bilateral, NORMAL BREATHING PATTERN - Cardiovascular Exam Cardiovascular Exam: REGULAR RHYTHM - GI/Abdominal Exam GI & Abdominal Exam: Normal Bowel Sounds, Soft. absent: Tenderness - Neurological Exam Neurological exam: Alert, Altered (lethargic) Results - Vital Signs Recent Vital Signs: Last Vital Signs Temp 100.7 F H 07/14/18 11:10 Pulse 79 07/14/18 19:35 Resp 14 07/14/18 19:35 BP 77/34 L 07/14/18 19:35 Pulse Ox 100 07/14/18 19:35 - Labs Result Diagrams: 07/14/18 13:15 07/14/18 13:15 Labs: Laboratory Results - last 24 hr 07/14/18 07/14/18 07/14/18 11:39 12:00 13:15 WBC 16.7 H D RBC 4.27 Hgb 10.8 L Hct 35.3 MCV 82.6 MCH 25.3 L MCHC 30.6 L RDW 17.7 H Plt Count 388 D MPV 9.9 Neut % (Auto) 82.8 H Lymph % (Auto) 10.7 L [place] % (Auto) 5.7 Eos % (Auto) 0.1 Baso % (Auto) 0.7 Neut # (Auto) 13.8 H Lymph # (Auto) 1.8 [place] # (Auto) 1.0 H Eos # (Auto) 0.0 Baso # (Auto) 0.1 PT INR APTT pO2 99 H VBG pH 7.35 VBG pCO2 35 L VBG HCO3 20.6 VBG Total CO2 20.4 L VBG O2 Sat (Calc) 98.9 H VBG Base Excess -5.6 L VBG Potassium 3.7 Sodium 148.0 Chloride 118.0 H Glucose 474 H* D Lactate 1.9 FiO2 21.0 Blood Gas Comments Nota bene this is an arterial extraction Crit Value Called To Dr riddle Crit Value Called By Jimmy smart Crit Value Read Back Y Blood Gas Notified Time 1206 Potassium Carbon Dioxide Anion Gap BUN Creatinine Est GFR ( Amer) Est GFR (Non-Af Amer) POC Glucose (mg/dL) 414 H* Random Glucose Calcium Phosphorus Magnesium Total Bilirubin AST ALT Alkaline Phosphatase Total Protein Albumin Globulin Albumin/Globulin Ratio Venous Blood Potassium 3.7 Urine Color Urine Clarity Urine pH Ur Specific [place] Urine Protein Urine Glucose (UA) Urine Ketones Urine Blood Urine Nitrate Urine Bilirubin Urine Urobilinogen Ur Leukocyte Esterase Urine WBC (Auto) Urine RBC (Auto) Ur Squamous Epith Cells Urine Bacteria Hyaline Casts Urine Yeast (Budding) 07/14/18 07/14/18 07/14/18 13:15 13:15 16:27 WBC RBC Hgb Hct MCV MCH MCHC RDW Plt Count MPV Neut % (Auto) Lymph % (Auto) [place] % (Auto) Eos % (Auto) Baso % (Auto) Neut # (Auto) Lymph # (Auto) [place] # (Auto) Eos # (Auto) Baso # (Auto) PT 15.6 H INR 1.4 APTT 31 pO2 VBG pH VBG pCO2 VBG HCO3 VBG Total CO2 VBG O2 Sat (Calc) VBG Base Excess VBG Potassium Sodium 145 Chloride 111 H Glucose Lactate FiO2 Blood Gas Comments Crit Value Called To Crit Value Called By Crit Value Read Back Blood Gas Notified Time Potassium 5.1 Carbon Dioxide 18 L Anion Gap 21 H BUN 101 H* D Creatinine 2.0 H Est GFR ( Amer) 30 Est GFR (Non-Af Amer) 25 POC Glucose (mg/dL) 469 H* Random Glucose 506 H* D Calcium 9.4 Phosphorus 5.4 H Magnesium 2.5 H Total Bilirubin 0.6 AST 35 ALT 15 Alkaline Phosphatase 99 Total Protein 6.5 Albumin 3.0 L Globulin 3.5 Albumin/Globulin Ratio 0.9 L Venous Blood Potassium Urine Color Urine Clarity Urine pH Ur Specific [place] Urine Protein Urine Glucose (UA) Urine Ketones Urine Blood Urine Nitrate Urine Bilirubin Urine Urobilinogen Ur Leukocyte Esterase Urine WBC (Auto) Urine RBC (Auto) Ur Squamous Epith Cells Urine Bacteria Hyaline Casts Urine Yeast (Budding) 07/14/18 07/14/18 07/14/18 17:17 17:38 19:04 WBC RBC Hgb Hct MCV MCH MCHC RDW Plt Count MPV Neut % (Auto) Lymph % (Auto) [place] % (Auto) Eos % (Auto) Baso % (Auto) Neut # (Auto) Lymph # (Auto) [place] # (Auto) Eos # (Auto) Baso # (Auto) PT INR APTT pO2 VBG pH VBG pCO2 VBG HCO3 VBG Total CO2 VBG O2 Sat (Calc) VBG Base Excess VBG Potassium Sodium Chloride Glucose Lactate FiO2 Blood Gas Comments Crit Value Called To Crit Value Called By Crit Value Read Back Blood Gas Notified Time Potassium Carbon Dioxide Anion Gap BUN Creatinine Est GFR ( Amer) Est GFR (Non-Af Amer) POC Glucose (mg/dL) 479 H* 349 H Random Glucose Calcium Phosphorus Magnesium Total Bilirubin AST ALT Alkaline Phosphatase Total Protein Albumin Globulin Albumin/Globulin Ratio Venous Blood Potassium Urine Color Yellow Urine Clarity Hazy Urine pH 5.0 Ur Specific [place] 1.012 Urine Protein Negative Urine Glucose (UA) 1+ Urine Ketones Negative Urine Blood 1+ H Urine Nitrate Negative Urine Bilirubin Negative Urine Urobilinogen Normal Ur Leukocyte Esterase 3+ H Urine WBC (Auto) 75 H Urine RBC (Auto) 6 H Ur Squamous Epith Cells 1 Urine Bacteria Rare Hyaline Casts 6-10 H Urine Yeast (Budding) Many H Assessment & Plan (1) Septic shock Assessment and Plan: 72 year old female with PMHx of PVD s/p multiple endovascular stent placements to left iliac, SFA and popliteal, DM, HTN, hypercholesterolemia, right BKA, bipolar depression disorder with multiple psychiatric admissions, LLE fem-pop bypass with reversed GSV graft, multiple admissions for altered mental status. p/w septic shock and AMS. Neuro: alert, altered mental status, metabolic encephalopathy. When at baseline again, patient should be evaluated for dementia, as episodes of AMS are getting more frequent. Pulm: no acute issues, breathing spontaneously on room air. CV: septic shock requiring levophed. Hem: leucocytosis Renal: LR@125 Endo: no acute issues GI: NPO ID: septic shock, multiple sources of infection with sacral and other pressure ulcers, UTI, possible pneumonia underneath her pleural effusion. Started on Vancomycin and Avycaz (history of ESBL Klebsiella in urine). Meropenem will reduce Depakote absorption. PCN allergy possibly gone now, patient has received cephalosporins and carbapenems in the past, so either low cross-reactivity or not an issue any longer. Can perform skin testing if PCN needed. Dr. Morgan - ID consulted. DVT proph - heparin sq GI proph - not currently indicated ann for strict I/O's during acute illness Code status - full code Critical Care Time spent 60 minutes The documented time is cumulative and includes review of patient data/exams/labs/chart review and examination of the patient on rounds and throughout the day; time is exclusive of any procedures or teaching time. Status: Acute
[2018-07-14 20:48] LABS: SQUAMOUS EPITHIAL 9 /hpf (0-5); URINE BACTERIA OCC (<OCC); URINE BILIRUBIN NEGATIVE (NEGATIVE); URINE BLOOD 3+ (NEGATIVE); URINE CALCIUM OXALATE CRYSTALS RARE /hpf (<OCC); URINE CLARITY Hazy (Clear); URINE COLOR Yellow (YELLOW); URINE GLUCOSE (UA) NORMAL (Normal); URINE LEUKOCYTE ESTERASE 3+ Leu/uL (Negative); URINE PROTEIN NEGATIVE (NEGATIVE); URINE UROBILINOGEN NORMAL mg/dL (0.2-1.0); WBC CLUMPS MANY /hpf
[2018-07-14] MEDS: Lactated Ringer's 1,000 ML IV ONE (22:00)
[2018-07-14] MEDS ORDERED: Vancomycin 1 gm/NS 200 ml 1 GM/200 ML BAG IVPB SCH (22:30)
[2018-07-15] MEDS: Vancomycin 1 gm/NS 200 ml 1 GM/200 ML BAG IVPB SCH ×3 (02:00→13:42)
--- NOTE | 2018-07-15 06:11 | HP ---
HISTORY OF PRESENT ILLNESS: I have spoken to the nurse this morning about Raegan. She was not doing well in the longterm. She had a very low blood pressure, was not really awake or alert. She is a 72-year-old female who I a lot over the past year. She has a left leg fem-pop and stents placed. She has a history of a right BKA. She was also in and out of it mentally past 10 hours and many of her medications were stopped, and she was now sent to the emergency room due to change in mentation, difficult to arouse and low blood pressure. She has a very bad medical history of COPD, diabetes, peripheral vascular disease, hypertension. She has left leg fem-pop, right BKA, extremely heavy smoker, has stopped smoking so she came back to the longterm where she was permanently because she cannot get out of the bed now, otherwise, she would have been down to the smoking room. No alcohol or drugs. She is a resident at [facility]. She does have some low blood pressure, it has been about 8 to 10 hours. She is now talking. She has ongoing complaints of vomiting. No cough. She has been septic in the past. The right leg is very mottled for the BKA. She has slow speech. She has a Chand catheter in place, also there is mottling on the distal left foot. She has peripheral vascular disease in the past. She also has bipolar disorder, anxiety, high cholesterol. She had angioplasty. She had arthrectomy. She had bypass of the left femoral artery. She has cervical biopsies. She had colonoscopies, aortograms, arteriograms, D and C. She had dilatation of left common iliac artery, dilatation of left external iliac artery, esophagogastroduodenoscopies; multiple fluoroscopies with aorta, heart, extremities. She had drug eluting stents placed coronary. She had endotracheal airway at one time. She was intubated at one time. She was then transfused. There is also cardiac disease in her family. She is a heavy smoker. No alcohol. No drugs. REVIEW OF SYSTEMS: She is alert now in the emergency room. She tells me she feels very well. No chest pain or shortness of breath. No abdominal pain. Her legs do not hurt her either. She does feel little bit weak as she is ready to go to sleep, but no real other complaints. PHYSICAL EXAMINATION: GENERAL: She has slow speech, in no acute distress. She . VITAL SIGNS: Temperature 100.7, pulse 82, respiratory rate 22, blood pressure 111/90, O2 sat 90%. HEENT: Head is atraumatic and normocephalic. No changes in vision or hearing. Throat is moist. NECK: Supple. No JVD. Thyroid midline. No palpable appreciable lymphadenopathy. HEART: Regular rate. LUNGS: Decreased breath sounds bilaterally, but clear to auscultation. ABDOMEN: Soft and nontender. Positive bowel sounds. Chand in place. EXTREMITIES: Right BKA. She has got mottling of the right thigh and also the left foot has got mottling. NEUROLOGIC: She is alert and oriented right now with fair speech which is slow but her baseline. SKIN: For the most part is intact, may be some subtle grade I in her low back. She has a 16.7 white count, 10.8 hemoglobin, 35.3 hematocrit with 388 platelets. Sodium 145, potassium 5.1, sugars 506, BUN is 101, creatinine is 2 which is elevated per her. She congestion changes at bilateral lower lobe atelectatic or infiltrates, right greater than left, small to medium size right-sided effusion on chest x-ray. Urine showed many yeast budding, rare bacteria, 101 BUN, creatinine 2, GFR is 25. Last blood sugar is 479, phosphorus 5.4, magnesium 2.5, total bilirubin is 0.6, AST is 35, ALT is 15, alk phos 99, total protein 6.5, INR is 1.4, white count 16.7. She had a CAT scan of the head, which showed mild diffuse compound chronic periventricular white matter ischemic changes are seen, extending peripherally into the deep and subcortical white matter, both cerebral hemispheres. No obvious parenchyma. No extra axial mass or collection, persistent moderate to significant central volume loss with this proportion, large in the ventricles compared to sulci. She is definitely quite ill. seen her and trying to put her in intensive care unit. She will be on aztreonam, Depakote, on lactated Ringer's at this time. She is on insulin coverage and IV fluids. She has a dose of vancomycin, also labs were pending. She has consult with Cardiology for hypotension; also Vascular for mottling of lower extremities, may be need some vascular evaluation. Infectious Disease for IV antibiotics for sepsis. Neurology for the change in mentation. She also has some starring later on, it could be that she has a seizure in intensive care unit evaluation, very worried about her. I believe she is septic with peripheral vascular disease, acute kidney injury, bilateral pneumonia, and diabetes out of control. Haja Pink DO MTDD
[2018-07-15 07:57] LABS: HEMOGLOBIN 9.7 g/dL (11.0-16.0); MEAN CELL VOLUME 81.6 fL (81.0-99.0); MEAN CORPUSCULAR HEMOGLOBIN 25.4 pg (27.0-31.0); MEAN CORPUSCULAR HGB CONC 31.1 g/dL (33.0-37.0); MEAN PLATELET VOLUME 9.4 fL (7.2-11.7); RBC 3.81 Mil/uL (3.80-5.20); RED CELL DISTRIBUTION WIDTH 16.9 % (11.5-14.5); WHITE BLOOD COUNT 18.2 K/uL (4.8-10.8)
[2018-07-15 08:05] LABS: ALB/GLOB RATIO 0.8 (1.0-2.1); ALBUMIN 2.5 g/dL (3.5-5.0); CALCIUM 8.6 mg/dl (8.6-10.4)
[2018-07-15] MEDS: (Novolog) Insulin Aspart, Recombinant 100 u/ml 10 ml vial SC SCH ×3 (08:08→18:09)
--- NOTE | 2018-07-15 12:10 | CP.PCM.CON ---
History of Present Illness - History of Present Illness History of Present Illness: Vascular surgery consult note for Dr. Lam Pt is a 72F with PMH of PVD 3 months S/P fem-pop bypass right leg who presented with septic picture and was admitted to the ICU. Patient's left lower leg was noted to be mottled and cold, so vascular consult was placed. Pt is currently on pressors for hemodynamic instability and is lethargic, only minimally interactive. Pt denies any pain. Review of Systems - Review of Systems Systems not reviewed;Unavailable: Altered Mental Status Past Patient History - Infectious Disease Hx of Infectious Diseases: None - Tetanus Immunizations Tetanus Immunization: Unknown - Past Medical History & Family History Past Medical History?: Yes - Past Social History Smoking Status: Former Smoker - CARDIAC Hx Congestive Heart Failure: Yes Hx Hypercholesterolemia: Yes Hx Hypertension: Yes - PULMONARY Hx Chronic Obstructive Pulmonary Disease (COPD): Yes - NEUROLOGICAL Hx Seizures: No - HEENT Hx HEENT Problems: Yes Hx Cataracts: Yes - RENAL Hx Chronic Kidney Disease: No - ENDOCRINE/METABOLIC Hx Endocrine Disorders: Yes Hx Diabetes Mellitus Type 2: Yes - HEMATOLOGICAL/ONCOLOGICAL Hx Human Immunodeficiency Virus (HIV): No - INTEGUMENTARY Hx Dermatological Problems: No Other/Comment: pvd - MUSCULOSKELETAL/RHEUMATOLOGICAL Hx Musculoskeletal Disorders: Yes Hx Falls: No Other/Comment: RIGHT BKA - GASTROINTESTINAL Hx Gastrointestinal Disorders: No - GENITOURINARY/GYNECOLOGICAL Hx Sexually Transmitted Disorders: No - PSYCHIATRIC Hx Anxiety: Yes Hx Bipolar Disorder: Yes Hx Depression: Yes Hx Substance Use: No - SURGICAL HISTORY Hx Mastectomy: No Hx Orthopedic Surgery: Yes - ANESTHESIA Hx Anesthesia: Yes Hx Anesthesia Reactions: No Hx Malignant Hyperthermia: No Meds Allergies/Adverse Reactions: Allergies Allergy/AdvReac Type Severity Reaction Status Date / Time Iodinated Contrast- Oral and Allergy ANAPHYLAXIS Verified 07/14/18 11:35 IV Dye Penicillins Allergy ANAPHYLAXIS Verified 07/14/18 11:35 aminothiol Allergy ANAPHYLAXIS Uncoded 05/31/18 20:30 - Medications Medications: Current Medications Divalproex Sodium (Depakote Er) 250 mg PO HS [facility] Last Admin: 07/14/18 22:43 Dose: Not Given Heparin Sodium (Porcine) (Heparin) 5,000 units SC Q8 [facility] Last Admin: 07/15/18 06:45 Dose: 5,000 units Vancomycin/Sodium Chloride (Vancomycin 1 Gm/Ns 200 Ml) 1 gm in 200 mls @ 133.333 mls/hr IVPB Q12H [facility]; Protocol Stop: 07/20/18 02:31 Last Admin: 07/15/18 02:46 Dose: 133.333 mls/hr Ceftazidime/Avibactam 2.5 gm/ (Sodium Chloride) 100 mls @ 50 mls/hr IV Q8H [facility]AVIER; Protocol Last Admin: 07/15/18 08:48 Dose: 50 mls/hr Norepinephrine Bitartrate 4 mg (/ Sodium Chloride) 254 mls @ 68.58 mls/hr IV .Q3H43M PRN; Protocol PRN Reason: TITRATE PER MD ORDER Last Admin: 07/15/18 10:36 Dose: 18 mcg/min, 68.58 mls/hr Influenza Virus Vaccine (Fluzone Quad [id number]) 60 mcg IM .ONCE ONE Stop: 07/16/18 10:01 Insulin Aspart (Novolog) 0 unit SC Q6H [facility]; Protocol Pneumococcal Polyvalent Vaccine (Pneumovax 23 Vaccine) 0.5 ml IM .ONCE ONE Stop: 07/16/18 10:01 Physical Exam - Constitutional Appears: No Acute Distress, Older Than Stated Age, Chronically Ill - Head Exam Head Exam: ATRAUMATIC, NORMOCEPHALIC - Eye Exam Eye Exam: Normal appearance. absent: Conjunctival injection, Scleral icterus - ENT Exam ENT Exam: Mucous Membranes Moist, Normal Oropharynx - Respiratory Exam Respiratory Exam: NORMAL BREATHING PATTERN. absent: Accessory Muscle Use, Respiratory Distress - Cardiovascular Exam Cardiovascular Exam: Tachycardia, REGULAR RHYTHM - GI/Abdominal Exam GI & Abdominal Exam: Soft. absent: Distended, Tenderness - Extremities Exam Additional comments: R BKA with dressing intact, no drainage, skin above dressing warm, normal color left foot with mottling, cool to the touch, faintly palpable DP pulse, non-palpable PT - Neurological Exam Neurological exam: Altered - Psychiatric Exam Psychiatric exam: Flat Affect - Skin Additional comments: see extremity section Results - Vital Signs Recent Vital Signs: Last Vital Signs Temp 98 F 07/15/18 08:00 Pulse 93 H 07/15/18 10:36 Resp 32 H 07/15/18 10:30 BP 95/42 L 07/15/18 10:36 Pulse Ox 98 07/15/18 10:30 - Labs Result Diagrams: 07/15/18 07:22 07/15/18 07:22 Labs: Laboratory Results - last 24 hr 07/14/18 07/14/18 07/14/18 12:00 13:15 13:15 WBC 16.7 H D RBC 4.27 Hgb 10.8 L Hct 35.3 MCV 82.6 MCH 25.3 L MCHC 30.6 L RDW 17.7 H Plt Count 388 D MPV 9.9 Neut % (Auto) 82.8 H Lymph % (Auto) 10.7 L [place] % (Auto) 5.7 Eos % (Auto) 0.1 Baso % (Auto) 0.7 Neut # (Auto) 13.8 H Lymph # (Auto) 1.8 [place] # (Auto) 1.0 H Eos # (Auto) 0.0 Baso # (Auto) 0.1 PT 15.6 H INR 1.4 APTT 31 Blood Gas Comments Nota bene this is an arterial extraction Sodium Potassium Chloride Carbon Dioxide Anion Gap BUN Creatinine Est GFR ( Amer) Est GFR (Non-Af Amer) POC Glucose (mg/dL) Random Glucose Calcium Phosphorus Magnesium Total Bilirubin AST ALT Alkaline Phosphatase Total Protein Albumin Globulin Albumin/Globulin Ratio Urine Color Urine Clarity Urine pH Ur Specific [place] Urine Protein Urine Glucose (UA) Urine Ketones Urine Blood Urine Nitrate Urine Bilirubin Urine Urobilinogen Ur Leukocyte Esterase Urine WBC (Auto) Urine RBC (Auto) Urine WBC Clumps (Auto) Ur Squamous Epith Cells Ur Transition Epith Cell Calcium Oxalate Crystal Urine Bacteria Hyaline Casts Urine Yeast (Budding) 07/14/18 07/14/18 07/14/18 13:15 16:27 17:17 WBC RBC Hgb Hct MCV MCH MCHC RDW Plt Count MPV Neut % (Auto) Lymph % (Auto) [place] % (Auto) Eos % (Auto) Baso % (Auto) Neut # (Auto) Lymph # (Auto) [place] # (Auto) Eos # (Auto) Baso # (Auto) PT INR APTT Blood Gas Comments Sodium 145 Potassium 5.1 Chloride 111 H Carbon Dioxide 18 L Anion Gap 21 H BUN 101 H* D Creatinine 2.0 H Est GFR ( Amer) 30 Est GFR (Non-Af Amer) 25 POC Glucose (mg/dL) 469 H* Random Glucose 506 H* D Calcium 9.4 Phosphorus 5.4 H Magnesium 2.5 H Total Bilirubin 0.6 AST 35 ALT 15 Alkaline Phosphatase 99 Total Protein 6.5 Albumin 3.0 L Globulin 3.5 Albumin/Globulin Ratio 0.9 L Urine Color Yellow Urine Clarity Hazy Urine pH 5.0 Ur Specific [place] 1.012 Urine Protein Negative Urine Glucose (UA) 1+ Urine Ketones Negative Urine Blood 1+ H Urine Nitrate Negative Urine Bilirubin Negative Urine Urobilinogen Normal Ur Leukocyte Esterase 3+ H Urine WBC (Auto) 75 H Urine RBC (Auto) 6 H Urine WBC Clumps (Auto) Ur Squamous Epith Cells 1 Ur Transition Epith Cell Calcium Oxalate Crystal Urine Bacteria Rare Hyaline Casts 6-10 H Urine Yeast (Budding) Many H 07/14/18 07/14/18 07/14/18 17:38 19:04 20:35 WBC RBC Hgb Hct MCV MCH MCHC RDW Plt Count MPV Neut % (Auto) Lymph % (Auto) [place] % (Auto) Eos % (Auto) Baso % (Auto) Neut # (Auto) Lymph # (Auto) [place] # (Auto) Eos # (Auto) Baso # (Auto) PT INR APTT Blood Gas Comments Sodium Potassium Chloride Carbon Dioxide Anion Gap BUN Creatinine Est GFR ( Amer) Est GFR (Non-Af Amer) POC Glucose (mg/dL) 479 H* 349 H Random Glucose Calcium Phosphorus Magnesium Total Bilirubin AST ALT Alkaline Phosphatase Total Protein Albumin Globulin Albumin/Globulin Ratio Urine Color Yellow Urine Clarity Hazy Urine pH 5.0 Ur Specific [place] 1.011 Urine Protein Negative Urine Glucose (UA) Normal Urine Ketones Negative Urine Blood 3+ H Urine Nitrate Negative Urine Bilirubin Negative Urine Urobilinogen Normal Ur Leukocyte Esterase 3+ H Urine WBC (Auto) 189 H Urine RBC (Auto) 46 H Urine WBC Clumps (Auto) Many H Ur Squamous Epith Cells 9 H Ur Transition Epith Cell 1 Calcium Oxalate Crystal Rare Urine Bacteria Occ H Hyaline Casts Urine Yeast (Budding) Many H 07/14/18 07/15/18 07/15/18 22:47 06:31 07:22 WBC 18.2 H RBC 3.81 Hgb 9.7 L Hct 31.1 L MCV 81.6 MCH 25.4 L MCHC 31.1 L RDW 16.9 H Plt Count 377 MPV 9.4 Neut % (Auto) Lymph % (Auto) [place] % (Auto) Eos % (Auto) Baso % (Auto) Neut # (Auto) Lymph # (Auto) [place] # (Auto) Eos # (Auto) Baso # (Auto) PT INR APTT Blood Gas Comments Sodium Potassium Chloride Carbon Dioxide Anion Gap BUN Creatinine Est GFR ( Amer) Est GFR (Non-Af Amer) POC Glucose (mg/dL) 273 H 294 H Random Glucose Calcium Phosphorus Magnesium Total Bilirubin AST ALT Alkaline Phosphatase Total Protein Albumin Globulin Albumin/Globulin Ratio Urine Color Urine Clarity Urine pH Ur Specific [place] Urine Protein Urine Glucose (UA) Urine Ketones Urine Blood Urine Nitrate Urine Bilirubin Urine Urobilinogen Ur Leukocyte Esterase Urine WBC (Auto) Urine RBC (Auto) Urine WBC Clumps (Auto) Ur Squamous Epith Cells Ur Transition Epith Cell Calcium Oxalate Crystal Urine Bacteria Hyaline Casts Urine Yeast (Budding) 07/15/18 07/15/18 07/15/18 07:22 07:22 11:33 WBC RBC Hgb Hct MCV MCH MCHC RDW Plt Count MPV Neut % (Auto) Lymph % (Auto) [place] % (Auto) Eos % (Auto) Baso % (Auto) Neut # (Auto) Lymph # (Auto) [place] # (Auto) Eos # (Auto) Baso # (Auto) PT INR APTT Blood Gas Comments Sodium 149 H Potassium 3.0 L Chloride 122 H Carbon Dioxide 19 L Anion Gap 11 BUN 62 H Creatinine 1.3 H Est GFR ( Amer) 49 Est GFR (Non-Af Amer) 40 POC Glucose (mg/dL) 330 H 225 H Random Glucose 321 H Calcium 8.6 Phosphorus 3.1 Magnesium 1.8 Total Bilirubin 0.4 AST 63 H D ALT 23 Alkaline Phosphatase 127 H D Total Protein 5.8 L Albumin 2.5 L Globulin 3.3 Albumin/Globulin Ratio 0.8 L Urine Color Urine Clarity Urine pH Ur Specific [place] Urine Protein Urine Glucose (UA) Urine Ketones Urine Blood Urine Nitrate Urine Bilirubin Urine Urobilinogen Ur Leukocyte Esterase Urine WBC (Auto) Urine RBC (Auto) Urine WBC Clumps (Auto) Ur Squamous Epith Cells Ur Transition Epith Cell Calcium Oxalate Crystal Urine Bacteria Hyaline Casts Urine Yeast (Budding) Assessment & Plan - Assessment and Plan (Free Text) Assessment: 72F with PVD and ischemic left leg--possibly d/t pressors and poor blood flow to limb d/t sepsis vs acute PVD Plan: F/U arterial duplex of the lower extremities to assess for any vascular insufficiency Likely no intervention at this time--will follow up test results for further recommendations continue current management per primary Discussed with Dr. Carole Hardy, PGY2
--- NOTE | 2018-07-15 13:23 | PN ---
DATE: 07/15/2018 SUBJECTIVE: I saw her in the intensive care unit at [facility]. She is alert and not talking as well when I saw her in the ER yesterday. She has multiple issues with septic shock, multiple sources of infection in the sacrum, also has UTI, possible pneumonia. She was on vancomycin and history of ESBL and Klebsiella in the urine. PHYSICAL EXAMINATION: GENERAL: She is alert, a little tired this morning. VITAL SIGNS: Temperature 100.7, 94 pulse, blood pressure was 145/109, it has gotten down, 14 respiratory rate, 94% O2 sat on nasal cannula. HEENT: Head is atraumatic and normocephalic. HEART: Regular rate. LUNGS: Decreased breath sounds, but clear. ABDOMEN: Soft. EXTREMITIES: Right leg BKA with very mild just this mottling over left leg, had fem-pop bypass surgery recently. MEDICATIONS: divalproex, heparin subcutaneously, norepinephrine, insulin coverage, vancomycin IV. LABORATORY DATA: Labs obtained this morning showed blood sugar was 273, was 506 when she came in. ASSESSMENT AND PLAN: She has multiple consults pending. She consulted Cardiology for up and down blood pressures, Vascular Surgery for the apparent, in the ER, vascular changes in the extremities, Infectious Disease, Neurology for changes in mentation in the intensive care unit. Hopefully, she will improve. We will continue with aggressive treatment and care. septic possible shock, history of right below-knee amputation, peripheral vascular disease, acute kidney injury, diabetes, urinary tract infection, bilateral peripheral ulcers, and pneumonias in the past. Continue aggressive treatment and care. Haja Pink DO MTDMarlo
--- NOTE | 2018-07-15 14:54 | CT ---
Date of service: 07/15/2018 PROCEDURE: CT Chest, Abdomen and Pelvis without intravenous contrast HISTORY: Assess pleural effusion, assess LLQ pain COMPARISON: None available. TECHNIQUE: Contiguous helical/transaxial sections of the chest abdomen pelvis performed without oral or intravenous contrast material. Additional 2D sagittal and coronal reformats generated. Radiation dose: Total exam DLP = 1560.4 mGy-cm. This CT exam was performed using one or more of the following dose reduction techniques: Automated exposure control, adjustment of the mA and/or kV according to patient size, and/or use of iterative reconstruction technique.. FINDINGS: CT CHEST WITHOUT CONTRAST: LUNGS: There is a large right-sided effusion with atelectatic changes seen in the right lower middle and upper lobes. Note that the effusion in the upper lobe and lung apex may be loculated with a masslike appearance of fluid in the right medial anterior lung apex. In addition, there is elliptical shaped fluid collection seen within minor fissure there is a small tiny left-sided effusion.. MEDIASTINUM: Heart is enlarged. Suspect trace pericardial effusion. Ascending thoracic aorta measures approximate 2.6 cm and descending thoracic aorta measures 2.3 cm. Mild partially calcified atherosclerotic plaque changes seen along the thoracic aorta. Pulmonary trunk measures 2.2 cm. LYMPH NODES: Few small nonspecific mediastinal lymph nodes present. Evaluation for hilar adenopathy is somewhat limited due to the lack of circulating intravenous contrast material.. PLEURA: As above. BONES: Unremarkable. OTHER FINDINGS: None. CT ABDOMEN AND PELVIS: LIVER: Liver exhibits normal size and attenuation pattern. No obvious hepatic mass or collection seen on this noncontrast exam. GALLBLADDER AND BILE DUCTS: Gallbladder is moderately distended. No evidence intraluminal catheter calculi. PANCREAS: Pancreas appears slightly atrophic and fatty replaced. SPLEEN: Small splenules are seen adjacent to within the splenic hilar region. ADRENALS: Suspect a small 10 mm left adrenal nodule with Hounsfield units in the upper teens. Rule out small adenoma. KIDNEYS AND URETERS: Atrophic changes right kidney. There are mild infiltration changes in the perinephric fat bilaterally right greater than left. No evidence of obstructing nephrolithiasis or hydronephrosis. No definitive renal mass or collection.. Compared to the left side appears to be atrophy of the right kidney the right VASCULATURE: Mild aortic atherosclerotic calcification or mural plaque present. Endovascular stent graft left iliac artery. No evidence of aortic aneurysm. Are In situ right femoral vein central line. BOWEL: Evaluation of the bowel is somewhat limited due to the lack of oral contrast material. Stomach is incompletely distended. Visualized loops of small bowel exhibit normal contour and caliber. No evidence of acute mechanical small bowel obstruction. Stool and air seen throughout the large bowel. APPENDIX: Normal-appearing appendix PERITONEUM: . Head without unremarkable. No free fluid. No free air. Small fat containing umbilical hernia. LYMPH NODES: Unremarkable. No enlarged lymph nodes. BLADDER: Evaluation of the urinary bladder is limited due to the presence of an in situ unclamped Chand catheter. Air is seen within the bladder lumen related to recent instrumentation. Rule out cystitis. Muscular hypertrophy REPRODUCTIVE: Uterus appears unremarkable. BONES: No acute fracture. OTHER FINDINGS: There are a few bubbles of air within the subcutaneous fat lower right anterior abdomen wall. IMPRESSION: Large right-sided effusion with atelectasis in the right lower middle and upper lobes. Small left-sided effusion. Atrophic changes right kidney with infiltration in the perinephric fat bilaterally right greater than left. Moderately distended gallbladder Urinary bladder is collapsed about an in situ unclamped Chand catheter. Air in the urinary bladder felt to be due to instrumentation. In situ left iliac artery endovascular stent graft See above discussion for additional details and findings.
--- NOTE | 2018-07-15 15:35 | CP.PCM.CON ---
History of Present Illness - History of Present Illness History of Present Illness: 72 year old female was recently discharged from [facility], then readmitted to [facility] with AMS, with what was believed to be recurrent septic episodes from UTI. Now presents with AMS, and hypotension Referered for ID eval of sepsis- hx of multiple UTI's with ESBL gram neg in past Now with UTI, pneumonia , cellulitis and possible ischemia of limbs - Medical History PMH: Anxiety, Bipolar Disorder, CHF, COPD, Depression, Diabetes, HTN, Hypercholesterolemia PVD s/p multiple endovascular stent placements to left iliac, SFA and popliteal, DM, HTN, hypercholesterolemia, right BKA, bipolar depression disorder with multiple psychiatric admissions, LLE fem-pop bypass with reversed GSV graft, - [facility] Procedures ANGIOPLASTY OF OTHER NON-CORONARY VESSEL(S) (02/28/15) ATHERECTOMY OF OTHER NON-CORONARY VESSEL(S) (02/28/15) BYPASS L FEM ART TO POPLIT ART WITH AUTOL VN, OPEN APPROACH (03/23/18) CERVICAL BIOPSY NEC (03/20/98) COLONOSCOPY (07/28/13) CONTRAST AORTOGRAM (02/28/15) CONTRAST ARTERIOGRAM-LEG (02/28/15) D & C NEC (03/20/98) DILATION OF L COM ILIAC ART WITH INTRALUM DEV, PERC APPROACH (12/01/17) DILATION OF L EXT ILIAC ART WITH INTRALUM DEV, PERC APPROACH (12/01/17) ESOPHAGOGASTRODUODENOSCOPY [EGD] W/CLOSED BIOPSY (10/23/12) FLUOROSCOPY OF AORTA AND BILATERAL LOWER EXTREMITY ARTERIES (12/01/17) FLUOROSCOPY OF LEFT HEART USING LOW OSMOLAR CONTRAST (03/23/18) FLUOROSCOPY OF LEFT LOWER EXTREMITY ARTERIES (03/23/18) FLUOROSCOPY OF MULT COR ART USING L OSM CONTRAST (03/23/18) INJECT/INFUSE ELECTROLYT (08/28/12) INJECT/INFUSE NEC (08/28/12) INSEJ [id number] PERIPHERAL NON-CORONARY VES STENT(S) (02/28/15) INSERTION OF ENDOTRACHEAL AIRWAY INTO TRACHEA, VIA OPENING (04/18/18) INSERTION OF INFUSION DEV INTO SUP VENA CAVA, PERC APPROACH (04/18/18) INSERTION OF INFUSION DEVICE INTO UPPER VEIN, PERC APPROACH (05/31/18) INSERTION OF ONE VASCULAR STENT (02/28/15) MEASURE OF CARDIAC SAMPL & PRESSURE, L HEART, PERC APPROACH (03/23/18) MEDICATION MANAGEMENT (07/16/15) PROCEDURE ON SINGLE VESSEL (02/28/15) PSYCHIAT DRUG THERAP NEC (02/16/15) RESPIRATORY VENTILATION, 24-96 CONSECUTIVE HOURS (04/18/18) TRANSFUSE NONAUT RED BLOOD CELLS IN PERIPH VEIN, PERC (12/01/17) Review of Systems - Review of Systems All systems: reviewed and no additional remarkable complaints except - Constitutional Constitutional: As Per HPI - EENT Eyes: absent: As Per HPI, Blind Spots, Blurred Vision, Change in Vision, Decreased Night Vision, Diplopia, Discharge, Dry Eye, Exophthalmos, Floaters, Irritation, Itchy Eyes, Loss of Peripheral Vision, Pain, Photophobia, Requires Corrective Lenses, Sees Flashes, Spots in Vision, Tunnel Vision, Other Visual Disturbances, Loss of Vision, Other Ears: absent: As Per HPI, Decreased Hearing, Ear Discharge, Ear Pain, Tinnitus, Abnormal Hearing, Disequilibrium, Dizziness, Other Nose/Mouth/Throat: absent: As Per HPI, Epistaxis, Nasal Congestion, Nasal Discharge, Nasal Obstruction, Nasal Trauma, Nose Pain, Post Nasal Drip, Sinus Pain, Sinus Pressure, Bleeding Gums, Change in Voice, Dental Pain, Dry Mouth, Dysphagia, Halitosis, Hoarsness, Lip Swelling, Mouth Lesions, Mouth Pain, Odynophagia, Sore Throat, Throat Swelling, Tongue Swelling, Facial Pain, Neck Pain, Neck Mass, Other - Breasts Breasts: absent: As Per HPI, Change in Shape, Mass, Pain, Nipple Discharge, Nipp le Inversion, Skin Changes, Swelling, Other - Cardiovascular Cardiovascular: As Per HPI - Respiratory Respiratory: absent: As Per HPI, Cough, Dyspnea, Hemoptysis, Dyspnea on Exertion, Wheezing, Snoring, Stridor, Pain on Inspiration, Chest Congestion, Excessive Mucous Production, Change in Mucous Color, Pain with Coughing, Other - Gastrointestinal Gastrointestinal: absent: As Per HPI, Abdominal Pain, Belching, Bloating, Change in Bowel Habits, Change in Stool Character, Coffee Ground Emesis, Constipation, Cramping, Diarrhea, Dyspepsia, Dysphagia, Early Satiety, Excessive Flatus, Fecal Incontinence, Heartburn, Hematemesis, Hematochezia, Loose Stools, Melena, Nausea, Odynophagia, Temesmus, Vomiting, Other - Genitourinary Genitourinary: As Per HPI - Reproductive: Female Reproductive:Female: absent: As Per HPI, Amenorrhea, Amenorrhea/ Control, Currently Menstual, Cycle <21 Days, Cycle >35 Days, Cycle Variable, Menses 1-7 Days, Menses >/= 8 Days, Menses Variable, Cycle > 4 Weeks Between, No Menses for 6 Months, Heavy Menses, Light Menses, Normal Menses, Spotting Between Cycles, S/P Hysterectomy, Menopausal, Post Menopausal, Premenarche, Abnormal Vaginal Bleeding, Dysmenorrhea, Dyspareunia, Genital Lesions, Genital Pruritis, Pelvic Pain, Prolapse Symptoms, Sexual Dysfunction, Vaginal Discharge, Vaginal Dryness, Vaginal Odor, Vaginal Pruritis, Other - Menstruation Menstruation: absent: As Per HPI, Amenorrhea, Amenorrhea/ Control, Currently Menstual, Cycle <21 Days, Cycle >35 Days, Cycle Variable, Menses 1-7 Days, Menses >/= 8 Days, Menses Variable, Cycle > 4 Weeks Between, No Menses for 6 Months, Heavy Menses, Light Menses, Normal Menses, Spotting Between Cycles, S/P Hysterectomy, Menopausal, Post Menopausal, Premenarche, Abnormal Vaginal Bleeding, Dysmenorrhea, Other - Musculoskeletal Musculoskeletal: As Per HPI Additional comments: BKA right - Integumentary Integumentary: As Per HPI - Neurological Neurological: As Per HPI - Psychiatric Psychiatric: As Per HPI - Endocrine Endocrine: As Per HPI - Hematologic/Lymphatic Hematologic: absent: As Per HPI, Easy Bleeding, Easy Bruising, Lymphadenopathy, Other Past Patient History - Infectious Disease Hx of Infectious Diseases: None - Tetanus Immunizations Tetanus Immunization: Unknown - Past Medical History & Family History Past Medical History?: Yes - Past Social History Smoking Status: Former Smoker - CARDIAC Hx Congestive Heart Failure: Yes Hx Hypercholesterolemia: Yes Hx Hypertension: Yes - PULMONARY Hx Chronic Obstructive Pulmonary Disease (COPD): Yes - NEUROLOGICAL Hx Seizures: No - HEENT Hx HEENT Problems: Yes Hx Cataracts: Yes - RENAL Hx Chronic Kidney Disease: No - ENDOCRINE/METABOLIC Hx Endocrine Disorders: Yes Hx Diabetes Mellitus Type 2: Yes - HEMATOLOGICAL/ONCOLOGICAL Hx Human Immunodeficiency Virus (HIV): No - INTEGUMENTARY Hx Dermatological Problems: No Other/Comment: pvd - MUSCULOSKELETAL/RHEUMATOLOGICAL Hx Musculoskeletal Disorders: Yes Hx Falls: No Other/Comment: RIGHT BKA - GASTROINTESTINAL Hx Gastrointestinal Disorders: No - GENITOURINARY/GYNECOLOGICAL Hx Sexually Transmitted Disorders: No - PSYCHIATRIC Hx Anxiety: Yes Hx Bipolar Disorder: Yes Hx Depression: Yes Hx Substance Use: No - SURGICAL HISTORY Hx Mastectomy: No Hx Orthopedic Surgery: Yes - ANESTHESIA Hx Anesthesia: Yes Hx Anesthesia Reactions: No Hx Malignant Hyperthermia: No Meds Allergies/Adverse Reactions: Allergies Allergy/AdvReac Type Severity Reaction Status Date / Time Iodinated Contrast- Oral and Allergy ANAPHYLAXIS Verified 07/14/18 11:35 IV Dye Penicillins Allergy ANAPHYLAXIS Verified 07/14/18 11:35 aminothiol Allergy ANAPHYLAXIS Uncoded 05/31/18 20:30 - Medications Medications: Current Medications Divalproex Sodium (Depakote Er) 250 mg PO HS XAVIER Last Admin: 07/14/18 22:43 Dose: Not Given Heparin Sodium (Porcine) (Heparin) 5,000 units SC Q8 XAVIER Last Admin: 07/15/18 13:42 Dose: 5,000 units Ceftazidime/Avibactam 2.5 gm/ (Sodium Chloride) 100 mls @ 50 mls/hr IV Q8H XAVIER; Protocol Last Admin: 07/15/18 08:48 Dose: 50 mls/hr Norepinephrine Bitartrate 4 mg (/ Sodium Chloride) 254 mls @ 68.58 mls/hr IV .Q3H43M PRN; Protocol PRN Reason: TITRATE PER MD ORDER Last Admin: 07/15/18 13:49 Dose: 18 mcg/min, 68.58 mls/hr Vancomycin/Sodium Chloride (Vancomycin 1 Gm/Ns 200 Ml) 1 gm in 200 mls @ 133.333 mls/hr IVPB Q24H XAVIER; Protocol Stop: 07/20/18 02:31 Influenza Virus Vaccine (Fluzone Quad [id number]) 60 mcg IM .ONCE ONE Stop: 07/16/18 10:01 Insulin Aspart (Novolog) 0 unit SC Q6H XAVIER; Protocol Last Admin: 07/15/18 12:14 Dose: 4 u Pneumococcal Polyvalent Vaccine (Pneumovax 23 Vaccine) 0.5 ml IM .ONCE ONE Stop: 07/16/18 10:01 Results - Vital Signs Recent Vital Signs: Last Vital Signs Temp 97.9 F 11/14/18 12:00 Pulse 96 H 07/15/18 15:00 Resp 18 07/15/18 15:00 BP 126/51 L 07/15/18 14:48 Pulse Ox 98 07/15/18 15:00 - Labs Result Diagrams: 07/15/18 07:22 07/15/18 07:22 Labs: Laboratory Results - last 24 hr 07/14/18 07/14/18 07/14/18 12:00 16:27 17:17 WBC RBC Hgb Hct MCV MCH MCHC RDW Plt Count MPV Blood Gas Comments Nota bene this is an arterial extraction Sodium Potassium Chloride Carbon Dioxide Anion Gap BUN Creatinine Est GFR ( Amer) Est GFR (Non-Af Amer) POC Glucose (mg/dL) 469 H* Random Glucose Calcium Phosphorus Magnesium Total Bilirubin AST ALT Alkaline Phosphatase Total Protein Albumin Globulin Albumin/Globulin Ratio Urine Color Yellow Urine Clarity Hazy Urine pH 5.0 Ur Specific Mead 1.012 Urine Protein Negative Urine Glucose (UA) 1+ Urine Ketones Negative Urine Blood 1+ H Urine Nitrate Negative Urine Bilirubin Negative Urine Urobilinogen Normal Ur Leukocyte Esterase 3+ H Urine WBC (Auto) 75 H Urine RBC (Auto) 6 H Urine WBC Clumps (Auto) Ur Squamous Epith Cells 1 Ur Transition Epith Cell Calcium Oxalate Crystal Urine Bacteria Rare Hyaline Casts 6-10 H Urine Yeast (Budding) Many H 07/14/18 07/14/18 07/14/18 17:38 19:04 20:35 WBC RBC Hgb Hct MCV MCH MCHC RDW Plt Count MPV Blood Gas Comments Sodium Potassium Chloride Carbon Dioxide Anion Gap BUN Creatinine Est GFR ( Amer) Est GFR (Non-Af Amer) POC Glucose (mg/dL) 479 H* 349 H Random Glucose Calcium Phosphorus Magnesium Total Bilirubin AST ALT Alkaline Phosphatase Total Protein Albumin Globulin Albumin/Globulin Ratio Urine Color Yellow Urine Clarity Hazy Urine pH 5.0 Ur Specific [place] 1.011 Urine Protein Negative Urine Glucose (UA) Normal Urine Ketones Negative Urine Blood 3+ H Urine Nitrate Negative Urine Bilirubin Negative Urine Urobilinogen Normal Ur Leukocyte Esterase 3+ H Urine WBC (Auto) 189 H Urine RBC (Auto) 46 H Urine WBC Clumps (Auto) Many H Ur Squamous Epith Cells 9 H Ur Transition Epith Cell 1 Calcium Oxalate Crystal Rare Urine Bacteria Occ H Hyaline Casts Urine Yeast (Budding) Many H 07/14/18 07/15/18 07/15/18 22:47 06:31 07:22 WBC 18.2 H RBC 3.81 Hgb 9.7 L Hct 31.1 L MCV 81.6 MCH 25.4 L MCHC 31.1 L RDW 16.9 H Plt Count 377 MPV 9.4 Blood Gas Comments Sodium Potassium Chloride Carbon Dioxide Anion Gap BUN Creatinine Est GFR ( Amer) Est GFR (Non-Af Amer) POC Glucose (mg/dL) 273 H 294 H Random Glucose Calcium Phosphorus Magnesium Total Bilirubin AST ALT Alkaline Phosphatase Total Protein Albumin Globulin Albumin/Globulin Ratio Urine Color Urine Clarity Urine pH Ur Specific Mead Urine Protein Urine Glucose (UA) Urine Ketones Urine Blood Urine Nitrate Urine Bilirubin Urine Urobilinogen Ur Leukocyte Esterase Urine WBC (Auto) Urine RBC (Auto) Urine WBC Clumps (Auto) Ur Squamous Epith Cells Ur Transition Epith Cell Calcium Oxalate Crystal Urine Bacteria Hyaline Casts Urine Yeast (Budding) 07/15/18 07/15/18 07/15/18 07:22 07:22 11:33 WBC RBC Hgb Hct MCV MCH MCHC RDW Plt Count MPV Blood Gas Comments Sodium 149 H Potassium 3.0 L Chloride 122 H Carbon Dioxide 19 L Anion Gap 11 BUN 62 H Creatinine 1.3 H Est GFR ( Amer) 49 Est GFR (Non-Af Amer) 40 POC Glucose (mg/dL) 330 H 225 H Random Glucose 321 H Calcium 8.6 Phosphorus 3.1 Magnesium 1.8 Total Bilirubin 0.4 AST 63 H D ALT 23 Alkaline Phosphatase 127 H D Total Protein 5.8 L Albumin 2.5 L Globulin 3.3 Albumin/Globulin Ratio 0.8 L Urine Color Urine Clarity Urine pH Ur Specific Mead Urine Protein Urine Glucose (UA) Urine Ketones Urine Blood Urine Nitrate Urine Bilirubin Urine Urobilinogen Ur Leukocyte Esterase Urine WBC (Auto) Urine RBC (Auto) Urine WBC Clumps (Auto) Ur Squamous Epith Cells Ur Transition Epith Cell Calcium Oxalate Crystal Urine Bacteria Hyaline Casts Urine Yeast (Budding) Assessment & Plan (1) Cellulitis Status: Acute (2) Septic shock Status: Acute (3) TAMEKA (acute kidney injury) Status: Acute (4) Acute respiratory failure with hypoxemia Status: Acute (5) Altered mental status Status: Acute (6) Bipolar disorder Status: Acute (7) CKD (chronic kidney disease) stage 3, GFR 30-59 ml/min Status: Acute (8) Cellulitis, leg Status: Acute - Assessment and Plan (Free Text) Assessment: poor prognosis empiric IV antibiotics odered await sensitivities\\cont supportive rx Cardio eval Dr Leavitt
--- NOTE | 2018-07-15 16:14 | RAD ---
Date of service: 07/15/2018 HISTORY: Status post central line placement COMPARISON: Comparison made with CT chest obtained earlier same day FINDINGS: In situ right IJ J central line with tip in the SVC LUNGS: Pulmonary venous congestive changes atelectasis and/or infiltrates and large right-sided effusion. Small left-sided effusion.. Also again seen is elliptical shaped fluid collection within the minor fissure PLEURA: As above. No evidence of pneumothorax CARDIOVASCULAR: Mild aortic atherosclerotic calcification present. Cardiomegaly.. No pulmonary vascular congestion. OSSEOUS STRUCTURES: No significant abnormalities. VISUALIZED UPPER ABDOMEN: Normal. OTHER FINDINGS: None. IMPRESSION: In situ right IJ central line with tip in the SVC. Pulmonary venous congestive changes atelectasis and/or infiltrates and large right-sided effusion. Small left-sided effusion.. Also again seen is elliptical shaped fluid collection within the minor fissure
--- NOTE | 2018-07-15 16:17 | CP.PCM.PN ---
Subjective - Date & Time of Evaluation Date of Evaluation: 07/15/18 Time of Evaluation: 16:16 - Subjective Subjective: graft appears patent duplex to confirm Objective - Vital Signs/Intake and Output Vital Signs (last 24 hours): Temp Pulse Resp BP Pulse Ox 97.9 F 96 H 18 126/51 L 98 07/15/18 12:00 07/15/18 15:00 07/15/18 15:00 07/15/18 14:48 07/15/18 15:00 Intake and Output: 07/15/18 07/15/18 06:59 18:59 Intake Total 2248.5 2579.0 Output Total 1000 1424 Balance 1248.5 1155.0 - Medications Medications: Current Medications Divalproex Sodium (Depakote Er) 250 mg PO HS XAVIER Last Admin: 07/14/18 22:43 Dose: Not Given Heparin Sodium (Porcine) (Heparin) 5,000 units SC Q8 XAVIER Last Admin: 07/15/18 13:42 Dose: 5,000 units Ceftazidime/Avibactam 2.5 gm/ (Sodium Chloride) 100 mls @ 50 mls/hr IV Q8H XAVIER; Protocol Last Admin: 07/15/18 08:48 Dose: 50 mls/hr Norepinephrine Bitartrate 4 mg (/ Sodium Chloride) 254 mls @ 68.58 mls/hr IV .Q3H43M PRN; Protocol PRN Reason: TITRATE PER MD ORDER Last Admin: 07/15/18 13:49 Dose: 18 mcg/min, 68.58 mls/hr Vancomycin/Sodium Chloride (Vancomycin 1 Gm/Ns 200 Ml) 1 gm in 200 mls @ 133.333 mls/hr IVPB Q24H XAVIER; Protocol Stop: 07/20/18 02:31 Influenza Virus Vaccine (Fluzone Quad [id number]) 60 mcg IM .ONCE ONE Stop: 07/16/18 10:01 Insulin Aspart (Novolog) 0 unit SC Q6H XAVIER; Protocol Last Admin: 07/15/18 12:14 Dose: 4 u Pneumococcal Polyvalent Vaccine (Pneumovax 23 Vaccine) 0.5 ml IM .ONCE ONE Stop: 07/16/18 10:01 - Labs Labs: 07/15/18 07:22 07/15/18 07:22 PT 15.6 SECONDS (9.7-12.2) H 11/13/18 13:15 INR 1.4 07/14/18 13:15 APTT 31 SECONDS (21-34) 07/14/18 13:15
--- NOTE | 2018-07-15 16:19 | CON ---
DATE: 07/15/2018 AGE: 72-year-old woman. CHIEF COMPLAINT: Altered mental status. HISTORY OF PRESENTING ILLNESS: This is a 72-year-old woman with past medical history of COPD, type 2 diabetes mellitus, peripheral vascular disease, status post recent left femoral-popliteal bypass, history of PVD, history of right BKA, and hypertension, who came in from [facility] with generalized weakness, confusion, had low systolic and diastolic blood pressures and urinary tract infection. I was called for altered mental status. Currently, she opens her eyes to voice, follows some commands. Speech is hypophonic, very deconditioned, does have generalized weakness, and also has metabolic derangements in terms of hypernatremia as well as hyperglycemia and low systolic and diastolic blood pressures and sepsis. ID is on board. PAST MEDICAL HISTORY: As above. SOCIAL HISTORY: No illicit drug abuse, smoking, or EtOH abuse. ALLERGIES: IODINE CONTRAST WELL PENICILLIN. FAMILY HISTORY: Noncontributory. MEDICATIONS: Reviewed by nurse reconciliation sheet. REVIEW OF SYSTEMS: A 14-point review of systems cannot obtain due to the patient's drowsy mental status. PHYSICAL EXAMINATION: VITAL SIGNS: Temperature 97.9, pulse rate 85, blood pressure 95/45, respiratory rate 17, oxygen 100% via nasal cannula. GENERAL: The patient is sitting up in bed, lethargic. HEENT: Atraumatic, normocephalic. PERRLA. Extraocular muscles are intact. Dry mucous membranes. HEART: S1 and S2, normal rate and rhythm. No murmur, rubs, or gallops. ABDOMEN: Soft, nontender, and nondistended. Bowel sounds are present. EXTREMITIES: Right leg BKA, has mottling on the right thigh, also on the distal left foot with bandage on scar on the left medial aspect of the ankle from the popliteal-femoral bypass. Peripheral pulse is 1+ on the left foot. NEUROLOGIC: The patient is alert, drowsy, in no acute distress, follows simple commands. Speech is hypophonic, opens eyes to voice, difficult to do a full mental status examination due to the mental status. Cranial nerves II through XII are intact. Motor: Moves all extremities equally, deconditioned. Sensory: Decreased vibration in the upper extremities, decreased to light touch with . DTRs are 1+ in the upper extremities and 1+ on the left knee. Coordination and gait: Deferred for now. LABORATORY DATA: WBC 18.2, hemoglobin 9.7, hematocrit 31.1, platelet count 377. Sodium 149, potassium 3.1, chloride 22, carbon dioxide 19, BUN of 2, creatinine 1.2, random glucose 321. IMPRESSION: Altered mental status, confusion secondary to toxic metabolic encephalopathy, superimposed underlying deconditioned state. PLAN: At this time, recommend: 1. Antibiotics per Infectious Disease in regards to underlying sepsis. 2. Keep systolic and diastolic blood pressures between 140 systolic and diastolic 70s-80s. 3. Monitor electrolytes and correct accordingly. 4. Avoid any sedative meds. 5. Avoid hyperglycemic accelerations and continue current and present medical management. Thank you for this consult. Efren Cha MD
--- NOTE | 2018-07-15 16:20 | PCM.PROC ---
Procedures Attestation:: I certify that I have explained the specified Operation(s) or Procedure(s), risks, benefits and reasonable alternatives to the Patient and/or other person responsible. The opportunity was given to ask questions and all questions answered - Central Line Placement Internal Jugular Aseptic technique was employed throughout the procedure: Hand Hygiene done prior to procedure, Full sterile barriers (mask, hair cover, sterile gown, sterile gloves), Full body sterile drape, Chloraprep Antiseptic: 30 second prep for IJ or SC sites CVP Time Out Performed: Yes Pt. Placed on Pulse Ox Monitor: Yes Central Line Prep: Chlorhexidine-Alcohol Combination Local Anesthesia Used: Lidocaine 2% Ultrasound Used for Placement: Yes Central Line Lumen Inserted: triple Central Line Length: 20 cm Post Procedure: Sutured in Place, Good Blood Return, All Ports Aspirated, Flushed, Capped, Sterile Dressing Applied Secured by: Securement device Post procedure dressing: Chlorhexidine disc (Biopatch) Post Procedure X-Ray: Yes Patient Tolerated Procedure: Well, No Complications Immediate Complications: None Additional Comments: Patient seen and evaluated with Dr. Gil Sol PGY1
[2018-07-15] MEDS ORDERED: Acetaminophen IV 1,000 MG in Premixed IV 1 EA IV ONE (16:39)
[2018-07-15] MEDS: Lactated Ringer's 1,000 ML IV SCH (16:59)
--- NOTE | 2018-07-15 17:27 | CP.CCUPN ---
<Durga Sol - Last Filed: 07/15/18 17:24> CCU Subjective - Physician Review Events Since Last Encounter (Free Text): 07/15/18 17:24 No acute events Subjective (Free Text): 07/15/18 17:24 PGY1 Critical Care Progress Note For Dr. Cordero Patient seen and evaluated at bedside. Patient alert but not able to communicate verbally and is altered. Patient's son was called to obtain consent for procedure (Central Line Placement). Patient is hemodynamically stable. 12 point ROS could not be obtained due to clinical condition. Critical Care Time Spent (in minutes): 35 CCU Objective - Vital Signs / Intake & Output Vital Signs (Last 4 hours): Vital Signs Temp Pulse Resp BP Pulse Ox 07/15/18 17:00 85 16 98 07/15/18 16:50 88 15 98 07/15/18 16:47 91 H 18 101/47 L 96 07/15/18 16:40 93 H 25 H 97 07/15/18 16:30 94 H 25 H 96 07/15/18 16:20 94 H 13 97 07/15/18 16:17 88 18 101/38 L 98 07/15/18 16:10 92 H 16 98 07/15/18 16:00 98.4 F 94 H 15 98 07/15/18 15:50 91 H 16 98 07/15/18 15:47 89 18 111/42 L 97 07/15/18 15:30 88 15 96 07/15/18 15:19 113/51 L 07/15/18 15:10 108 H 18 97 07/15/18 15:00 96 H 18 98 07/15/18 14:50 100 H 19 100 07/15/18 14:48 106 H 25 H 126/51 L 99 07/15/18 14:40 82 16 99 07/15/18 14:17 97/42 L 07/15/18 14:10 81 14 99 07/15/18 14:00 84 16 99 07/15/18 13:50 83 15 100 07/15/18 13:49 95/45 L 07/15/18 13:47 83 17 95/45 L 100 07/15/18 13:40 82 16 100 07/15/18 13:30 83 17 100 Intake and Output (Last 8hrs): Intake & Output 07/15/18 07/15/18 07/15/18 06:59 14:59 22:59 Intake Total 1916.5 2386.5 612.5 Output Total 1000 1424 500 Balance 916.5 962.5 112.5 Weight 130 lb 12.8 oz Intake: IV 254 254 Intake, IV Amount 1662.5 2132.5 612.5 Right Distal Port Femoral 100 400 Right Distal Port 120 Internal Jugular Right Medial Port Femoral 1000 1125 125 Right Medial Port 250 Internal Jugular Right Proximal Port 562.5 607.5 67.5 Femoral Right Proximal Port 50 Internal Jugular Oral 0 Output: Urine 1000 1424 500 Urethral (Ann) 1000 1424 500 Emesis 0 Other: # Bowel Movements 0 - Physical Exam Other physical findings (Free Text): - Constitutional Appears: Unkempt - Head Exam Head Exam: ATRAUMATIC, NORMAL INSPECTION, NORMOCEPHALIC - Eye Exam Eye Exam: EOMI, Normal appearance, PERRL - ENT Exam ENT Exam: Mucous Membranes Dry - Respiratory Exam Respiratory Exam: Clear to Auscultation Bilateral, NORMAL BREATHING PATTERN - Cardiovascular Exam Cardiovascular Exam: REGULAR RHYTHM - GI/Abdominal Exam GI & Abdominal Exam: Normal Bowel Sounds, Soft. absent: Tenderness - Neurological Exam Neurological exam: Alert, Altered (lethargic) - Medications Active Medications: Active Medications Generic Name Dose Route Start Last Admin Trade Name Freq PRN Reason Stop Dose Admin Divalproex Sodium 250 mg 07/14/18 22:00 07/14/18 22:43 Depakote Er PO Not Given HS [facility] Heparin Sodium (Porcine) 5,000 units 07/14/18 22:30 07/15/18 13:42 Heparin SC 5,000 units Q8 [facility] Administration Ceftazidime/Avibactam 2.5 gm/ 100 mls @ 50 mls/hr 07/15/18 00:00 07/15/18 16:58 Sodium Chloride IV 50 mls/hr Q8H [facility] Administration Protocol Norepinephrine Bitartrate 4 mg 254 mls @ 68.58 mls/hr 07/15/18 10:25 07/15/18 13:49 / Sodium Chloride IV 18 mcg/min .Q3H43M PRN 68.58 mls/hr TITRATE PER MD ORDER Administration Protocol 18 MCG/MIN Vancomycin/Sodium Chloride 1 gm in 200 mls @ 133.333 mls/hr 07/16/18 14:30 Vancomycin 1 Gm/Ns 200 Ml IVPB 07/20/18 02:31 Q24H [facility] Protocol Lactated Ringer's 1,000 mls @ 125 mls/hr 07/15/18 17:00 07/15/18 16:59 Lactated Ringer's IV 125 mls/hr .Q8H [facility] Administration Influenza Virus Vaccine 60 mcg 07/16/18 10:00 Fluzone Quad [id number] IM 07/16/18 10:01 .ONCE ONE Insulin Aspart 0 unit 07/15/18 12:00 07/15/18 12:14 Novolog SC 4 u Q6H [facility] Administration Protocol Pneumococcal Polyvalent Vaccine 0.5 ml 07/16/18 10:00 Pneumovax 23 Vaccine IM 07/16/18 10:01 .ONCE ONE - Patient Studies Lab Studies: Microbiology Studies 07/14/18 13:29 Blood Culture - Preliminary Blood NO GROWTH AFTER 24 HOURS 07/14/18 13:29 Blood Culture - Preliminary Blood NO GROWTH AFTER 24 HOURS Lab Studies 07/15/18 07/15/18 07/15/18 Range/Units 11:33 07:22 07:22 WBC (4.8-10.8) K/uL RBC (3.80-5.20) Mil/uL Hgb (11.0-16.0) g/dL Hct (34.0-47.0) % MCV (81.0-99.0) fL MCH (27.0-31.0) pg MCHC (33.0-37.0) g/dL RDW (11.5-14.5) % Plt Count (130-400) K/uL MPV (7.2-11.7) fL Blood Gas Comments Sodium 149 H (132-148) mmol/L Potassium 3.0 L (3.6-5.2) mmol/L Chloride 122 H (98-107) mmol/L Carbon Dioxide 19 L (22-30) mmol/L Anion Gap 11 (10-20) BUN 62 H (7-17) mg/dL Creatinine 1.3 H (0.7-1.2) mg/dL Est GFR ( Amer) 49 Est GFR (Non-Af Amer) 40 POC Glucose (mg/dL) 225 H 330 H (65-110) mg/dL Random Glucose 321 H (65-105) mg/dL Calcium 8.6 (8.6-10.4) mg/dl Phosphorus 3.1 (2.5-4.5) mg/dL Magnesium 1.8 (1.6-2.3) mg/dL Total Bilirubin 0.4 (0.2-1.3) mg/dL AST 63 H D (14-36) U/L ALT 23 (9-52) U/L Alkaline Phosphatase 127 H D (38-126) U/L Total Protein 5.8 L (6.3-8.3) g/dL Albumin 2.5 L (3.5-5.0) g/dL Globulin 3.3 (2.2-3.9) gm/dL Albumin/Globulin Ratio 0.8 L (1.0-2.1) Urine Color (YELLOW) Urine Clarity (Clear) Urine pH (5.0-8.0) Ur Specific Dickens (1.003-1.030) Urine Protein (NEGATIVE) mg/dL Urine Glucose (UA) (Normal) mg/dL Urine Ketones (NEGATIVE) mg/dL Urine Blood (NEGATIVE) Urine Nitrate (NEGATIVE) Urine Bilirubin (NEGATIVE) Urine Urobilinogen (0.2-1.0) mg/dL Ur Leukocyte Esterase (Negative) Windy/uL Urine WBC (Auto) (0-5) /hpf Urine RBC (Auto) (0-3) /hpf Urine WBC Clumps (Auto) (NONE) /hpf Ur Squamous Epith Cells (0-5) /hpf Ur Transition Epith Cell (0-3) /hpf Calcium Oxalate Crystal (<OCC) /hpf Urine Bacteria (<OCC) Hyaline Casts (0-2) /lpf Urine Yeast (Budding) (NEGATIVE) /hpf 07/15/18 07/15/18 07/14/18 Range/Units 07:22 06:31 22:47 WBC 18.2 H (4.8-10.8) K/uL RBC 3.81 (3.80-5.20) Mil/uL Hgb 9.7 L (11.0-16.0) g/dL Hct 31.1 L (34.0-47.0) % MCV 81.6 (81.0-99.0) fL MCH 25.4 L (27.0-31.0) pg MCHC 31.1 L (33.0-37.0) g/dL RDW 16.9 H (11.5-14.5) % Plt Count 377 (130-400) K/uL MPV 9.4 (7.2-11.7) fL Blood Gas Comments Sodium (132-148) mmol/L Potassium (3.6-5.2) mmol/L Chloride (98-107) mmol/L Carbon Dioxide (22-30) mmol/L Anion Gap (10-20) BUN (7-17) mg/dL Creatinine (0.7-1.2) mg/dL Est GFR ( Amer) Est GFR (Non-Af Amer) POC Glucose (mg/dL) 294 H 273 H (65-110) mg/dL Random Glucose (65-105) mg/dL Calcium (8.6-10.4) mg/dl Phosphorus (2.5-4.5) mg/dL Magnesium (1.6-2.3) mg/dL Total Bilirubin (0.2-1.3) mg/dL AST (14-36) U/L ALT (9-52) U/L Alkaline Phosphatase (38-126) U/L Total Protein (6.3-8.3) g/dL Albumin (3.5-5.0) g/dL Globulin (2.2-3.9) gm/dL Albumin/Globulin Ratio (1.0-2.1) Urine Color (YELLOW) Urine Clarity (Clear) Urine pH (5.0-8.0) Ur Specific Dickens (1.003-1.030) Urine Protein (NEGATIVE) mg/dL Urine Glucose (UA) (Normal) mg/dL Urine Ketones (NEGATIVE) mg/dL Urine Blood (NEGATIVE) Urine Nitrate (NEGATIVE) Urine Bilirubin (NEGATIVE) Urine Urobilinogen (0.2-1.0) mg/dL Ur Leukocyte Esterase (Negative) Windy/uL Urine WBC (Auto) (0-5) /hpf Urine RBC (Auto) (0-3) /hpf Urine WBC Clumps (Auto) (NONE) /hpf Ur Squamous Epith Cells (0-5) /hpf Ur Transition Epith Cell (0-3) /hpf Calcium Oxalate Crystal (<OCC) /hpf Urine Bacteria (<OCC) Hyaline Casts (0-2) /lpf Urine Yeast (Budding) (NEGATIVE) /hpf 07/14/18 07/14/18 07/14/18 Range/Units 20:35 19:04 17:38 WBC (4.8-10.8) K/uL RBC (3.80-5.20) Mil/uL Hgb (11.0-16.0) g/dL Hct (34.0-47.0) % MCV (81.0-99.0) fL MCH (27.0-31.0) pg MCHC (33.0-37.0) g/dL RDW (11.5-14.5) % Plt Count (130-400) K/uL MPV (7.2-11.7) fL Blood Gas Comments Sodium (132-148) mmol/L Potassium (3.6-5.2) mmol/L Chloride (98-107) mmol/L Carbon Dioxide (22-30) mmol/L Anion Gap (10-20) BUN (7-17) mg/dL Creatinine (0.7-1.2) mg/dL Est GFR ( Amer) Est GFR (Non-Af Amer) POC Glucose (mg/dL) 349 H 479 H* (65-110) mg/dL Random Glucose (65-105) mg/dL Calcium (8.6-10.4) mg/dl Phosphorus (2.5-4.5) mg/dL Magnesium (1.6-2.3) mg/dL Total Bilirubin (0.2-1.3) mg/dL AST (14-36) U/L ALT (9-52) U/L Alkaline Phosphatase (38-126) U/L Total Protein (6.3-8.3) g/dL Albumin (3.5-5.0) g/dL Globulin (2.2-3.9) gm/dL Albumin/Globulin Ratio (1.0-2.1) Urine Color Yellow (YELLOW) Urine Clarity Hazy (Clear) Urine pH 5.0 (5.0-8.0) Ur Specific Dickens 1.011 (1.003-1.030) Urine Protein Negative (NEGATIVE) mg/dL Urine Glucose (UA) Normal (Normal) mg/dL Urine Ketones Negative (NEGATIVE) mg/dL Urine Blood 3+ H (NEGATIVE) Urine Nitrate Negative (NEGATIVE) Urine Bilirubin Negative (NEGATIVE) Urine Urobilinogen Normal (0.2-1.0) mg/dL Ur Leukocyte Esterase 3+ H (Negative) Windy/uL Urine WBC (Auto) 189 H (0-5) /hpf Urine RBC (Auto) 46 H (0-3) /hpf Urine WBC Clumps (Auto) Many H (NONE) /hpf Ur Squamous Epith Cells 9 H (0-5) /hpf Ur Transition Epith Cell 1 (0-3) /hpf Calcium Oxalate Crystal Rare (<OCC) /hpf Urine Bacteria Occ H (<OCC) Hyaline Casts (0-2) /lpf Urine Yeast (Budding) Many H (NEGATIVE) /hpf 07/14/18 07/14/18 Range/Units 17:17 12:00 WBC (4.8-10.8) K/uL RBC (3.80-5.20) Mil/uL Hgb (11.0-16.0) g/dL Hct (34.0-47.0) % MCV (81.0-99.0) fL MCH (27.0-31.0) pg MCHC (33.0-37.0) g/dL RDW (11.5-14.5) % Plt Count (130-400) K/uL MPV (7.2-11.7) fL Blood Gas Comments Nota bene this is an arterial extraction Sodium (132-148) mmol/L Potassium (3.6-5.2) mmol/L Chloride (98-107) mmol/L Carbon Dioxide (22-30) mmol/L Anion Gap (10-20) BUN (7-17) mg/dL Creatinine (0.7-1.2) mg/dL Est GFR ( Amer) Est GFR (Non-Af Amer) POC Glucose (mg/dL) (65-110) mg/dL Random Glucose (65-105) mg/dL Calcium (8.6-10.4) mg/dl Phosphorus (2.5-4.5) mg/dL Magnesium (1.6-2.3) mg/dL Total Bilirubin (0.2-1.3) mg/dL AST (14-36) U/L ALT (9-52) U/L Alkaline Phosphatase (38-126) U/L Total Protein (6.3-8.3) g/dL Albumin (3.5-5.0) g/dL Globulin (2.2-3.9) gm/dL Albumin/Globulin Ratio (1.0-2.1) Urine Color Yellow (YELLOW) Urine Clarity Hazy (Clear) Urine pH 5.0 (5.0-8.0) Ur Specific Dickens 1.012 (1.003-1.030) Urine Protein Negative (NEGATIVE) mg/dL Urine Glucose (UA) 1+ (Normal) mg/dL Urine Ketones Negative (NEGATIVE) mg/dL Urine Blood 1+ H (NEGATIVE) Urine Nitrate Negative (NEGATIVE) Urine Bilirubin Negative (NEGATIVE) Urine Urobilinogen Normal (0.2-1.0) mg/dL Ur Leukocyte Esterase 3+ H (Negative) Windy/uL Urine WBC (Auto) 75 H (0-5) /hpf Urine RBC (Auto) 6 H (0-3) /hpf Urine WBC Clumps (Auto) (NONE) /hpf Ur Squamous Epith Cells 1 (0-5) /hpf Ur Transition Epith Cell (0-3) /hpf Calcium Oxalate Crystal (<OCC) /hpf Urine Bacteria Rare (<OCC) Hyaline Casts 6-10 H (0-2) /lpf Urine Yeast (Budding) Many H (NEGATIVE) /hpf Laboratory Results - last 24 hr 07/14/18 07/14/18 07/14/18 12:00 17:17 17:38 WBC RBC Hgb Hct MCV MCH MCHC RDW Plt Count MPV Blood Gas Comments Nota bene this is an arterial extraction Sodium Potassium Chloride Carbon Dioxide Anion Gap BUN Creatinine Est GFR ( Amer) Est GFR (Non-Af Amer) POC Glucose (mg/dL) 479 H* Random Glucose Calcium Phosphorus Magnesium Total Bilirubin AST ALT Alkaline Phosphatase Total Protein Albumin Globulin Albumin/Globulin Ratio Urine Color Yellow Urine Clarity Hazy Urine pH 5.0 Ur Specific Dickens 1.012 Urine Protein Negative Urine Glucose (UA) 1+ Urine Ketones Negative Urine Blood 1+ H Urine Nitrate Negative Urine Bilirubin Negative Urine Urobilinogen Normal Ur Leukocyte Esterase 3+ H Urine WBC (Auto) 75 H Urine RBC (Auto) 6 H Urine WBC Clumps (Auto) Ur Squamous Epith Cells 1 Ur Transition Epith Cell Calcium Oxalate Crystal Urine Bacteria Rare Hyaline Casts 6-10 H Urine Yeast (Budding) Many H 07/14/18 07/14/18 07/14/18 19:04 20:35 22:47 WBC RBC Hgb Hct MCV MCH MCHC RDW Plt Count MPV Blood Gas Comments Sodium Potassium Chloride Carbon Dioxide Anion Gap BUN Creatinine Est GFR ( Amer) Est GFR (Non-Af Amer) POC Glucose (mg/dL) 349 H 273 H Random Glucose Calcium Phosphorus Magnesium Total Bilirubin AST ALT Alkaline Phosphatase Total Protein Albumin Globulin Albumin/Globulin Ratio Urine Color Yellow Urine Clarity Hazy Urine pH 5.0 Ur Specific Dickens 1.011 Urine Protein Negative Urine Glucose (UA) Normal Urine Ketones Negative Urine Blood 3+ H Urine Nitrate Negative Urine Bilirubin Negative Urine Urobilinogen Normal Ur Leukocyte Esterase 3+ H Urine WBC (Auto) 189 H Urine RBC (Auto) 46 H Urine WBC Clumps (Auto) Many H Ur Squamous Epith Cells 9 H Ur Transition Epith Cell 1 Calcium Oxalate Crystal Rare Urine Bacteria Occ H Hyaline Casts Urine Yeast (Budding) Many H 07/15/18 07/15/18 07/15/18 06:31 07:22 07:22 WBC 18.2 H RBC 3.81 Hgb 9.7 L Hct 31.1 L MCV 81.6 MCH 25.4 L MCHC 31.1 L RDW 16.9 H Plt Count 377 MPV 9.4 Blood Gas Comments Sodium 149 H Potassium 3.0 L Chloride 122 H Carbon Dioxide 19 L Anion Gap 11 BUN 62 H Creatinine 1.3 H Est GFR ( Amer) 49 Est GFR (Non-Af Amer) 40 POC Glucose (mg/dL) 294 H Random Glucose 321 H Calcium 8.6 Phosphorus 3.1 Magnesium 1.8 Total Bilirubin 0.4 AST 63 H D ALT 23 Alkaline Phosphatase 127 H D Total Protein 5.8 L Albumin 2.5 L Globulin 3.3 Albumin/Globulin Ratio 0.8 L Urine Color Urine Clarity Urine pH Ur Specific Dickens Urine Protein Urine Glucose (UA) Urine Ketones Urine Blood Urine Nitrate Urine Bilirubin Urine Urobilinogen Ur Leukocyte Esterase Urine WBC (Auto) Urine RBC (Auto) Urine WBC Clumps (Auto) Ur Squamous Epith Cells Ur Transition Epith Cell Calcium Oxalate Crystal Urine Bacteria Hyaline Casts Urine Yeast (Budding) 07/15/18 07/15/18 07:22 11:33 WBC RBC Hgb Hct MCV MCH MCHC RDW Plt Count MPV Blood Gas Comments Sodium Potassium Chloride Carbon Dioxide Anion Gap BUN Creatinine Est GFR ( Amer) Est GFR (Non-Af Amer) POC Glucose (mg/dL) 330 H 225 H Random Glucose Calcium Phosphorus Magnesium Total Bilirubin AST ALT Alkaline Phosphatase Total Protein Albumin Globulin Albumin/Globulin Ratio Urine Color Urine Clarity Urine pH Ur Specific Dickens Urine Protein Urine Glucose (UA) Urine Ketones Urine Blood Urine Nitrate Urine Bilirubin Urine Urobilinogen Ur Leukocyte Esterase Urine WBC (Auto) Urine RBC (Auto) Urine WBC Clumps (Auto) Ur Squamous Epith Cells Ur Transition Epith Cell Calcium Oxalate Crystal Urine Bacteria Hyaline Casts Urine Yeast (Budding) EKG/Cardiology Studies: Cardiology / EKG Studies 07/14/18 18:00 EKG [ELECTROCARDIOGRAM] Stat Comment: Mode Of Transportation: BED Reason For Exam: cp bed 9 Fingerstick Blood Sugar Results: 225 Review of Systems - Review of Systems Systems not reviewed;Unavailable: Altered Mental Status Critical Care Progress Note - Nutrition Nutrition: Nutrition Category Date Time Status NPO Diet [DIET] Diets 07/14/18 Dinner Active Assessment/Plan - Assessment and Plan (Free Text) Assessment: 72 year old female with PMH of Peripheral Vascular Disease and is s/p multiple endovascular stent placements to left iliac, SFA and popliteal. Patient also has history of DM, HTN, hypercholesterolemia, right BKA, bipolar depression disorder with multiple psychiatric admissions, LLE fem-pop bypass with reversed GSV graft, multiple admissions for altered mental status. p/w septic shock and AMS. Patient is in ICU for close monitoring and treatment. Patient with IJ central line placed on 07/15. Neuro: - Alert, altered mental status - Metabolic encephalopathy - When at baseline again, patient should be evaluated for dementia, as episodes of AMS are getting more frequent. Pulm: - No acute issues - Saturating well on RA - Monitor CV: - Septic shock - Patient on Levophed administered via Right IJ (placed 07/15) - EKG obtained - conveyor monitor - Monitor Mg, Phos, CMP Hem: - leukocytosis likely 2/2 sepsis - Antibiotics initiated: Vancomycin, Ceftazidime - Dr. Morgan consulted; recommendations appreciated Renal - No acute issues - LR@125 - Monitor CMP, Mg, Phos Endo: - no acute issues GI: - NPO - LR@125 ID: - Septic shock, multiple sources of infection with sacral and other pressure ulcers - UTI - Possible pneumonia underneath her pleural effusion. - Continue Vancomycin and Ceftazidime - Dr. Morgan consulted; recommendations appreciated DVT proph - heparin sq GI proph - not currently indicated ann for strict I/O's during acute illness Code status - full code Patient seen and case discussed in detail with Dr. Gil Sol PGY1 <Dillon Cordero S - Last Filed: 07/15/18 17:58> CCU Objective - Vital Signs / Intake & Output Vital Signs (Last 4 hours): Vital Signs Temp Pulse Resp BP Pulse Ox 07/15/18 17:00 85 16 98 07/15/18 16:50 88 15 98 07/15/18 16:47 91 H 18 101/47 L 96 07/15/18 16:40 93 H 25 H 97 07/15/18 16:30 94 H 25 H 96 07/15/18 16:20 94 H 13 97 07/15/18 16:17 88 18 101/38 L 98 07/15/18 16:10 92 H 16 98 07/15/18 16:00 98.4 F 94 H 15 98 07/15/18 15:50 91 H 16 98 07/15/18 15:47 89 18 111/42 L 97 07/15/18 15:30 88 15 96 07/15/18 15:19 113/51 L 07/15/18 15:10 108 H 18 97 07/15/18 15:00 96 H 18 98 07/15/18 14:50 100 H 19 100 07/15/18 14:48 106 H 25 H 126/51 L 99 07/15/18 14:40 82 16 99 07/15/18 14:17 97/42 L 07/15/18 14:10 81 14 99 07/15/18 14:00 84 16 99 Intake and Output (Last 8hrs): Intake & Output 07/15/18 07/15/18 07/15/18 06:59 14:59 22:59 Intake Total 1916.5 2386.5 716.5 Output Total 1000 1424 500 Balance 916.5 962.5 216.5 Weight 130 lb 12.8 oz Intake: IV 254 254 104 Intake, IV Amount 1662.5 2132.5 612.5 Right Distal Port Femoral 100 400 Right Distal Port 120 Internal Jugular Right Medial Port Femoral 1000 1125 125 Right Medial Port 250 Internal Jugular Right Proximal Port 562.5 607.5 67.5 Femoral Right Proximal Port 50 Internal Jugular Oral 0 Output: Urine 1000 1424 500 Urethral (Ann) 1000 1424 500 Emesis 0 Other: # Bowel Movements 0 - Medications Active Medications: Active Medications Generic Name Dose Route Start Last Admin Trade Name Freq PRN Reason Stop Dose Admin Divalproex Sodium 250 mg 07/14/18 22:00 07/14/18 22:43 Depakote Er PO Not Given HS [facility] Heparin Sodium (Porcine) 5,000 units 07/14/18 22:30 07/15/18 13:42 Heparin SC 5,000 units Q8 [facility] Administration Ceftazidime/Avibactam 2.5 gm/ 100 mls @ 50 mls/hr 07/15/18 00:00 07/15/18 16:58 Sodium Chloride IV 50 mls/hr Q8H [facility] Administration Protocol Norepinephrine Bitartrate 4 mg 254 mls @ 68.58 mls/hr 07/15/18 10:25 07/15/18 16:00 / Sodium Chloride IV 16 mcg/min .Q3H43M PRN 60.96 mls/hr TITRATE PER MD ORDER Titration Protocol 18 MCG/MIN Vancomycin/Sodium Chloride 1 gm in 200 mls @ 133.333 mls/hr 07/16/18 14:30 Vancomycin 1 Gm/Ns 200 Ml IVPB 07/20/18 02:31 Q24H [facility] Protocol Lactated Ringer's 1,000 mls @ 125 mls/hr 07/15/18 17:00 07/15/18 16:59 Lactated Ringer's IV 125 mls/hr .Q8H [facility] Administration Potassium Chloride 20 meq in 100 mls @ 100 mls/hr 07/15/18 18:00 Potassium Chloride 20 Meq/100 Ml IVPB 07/15/18 20:59 Q2 [facility] Influenza Virus Vaccine 60 mcg 07/16/18 10:00 Fluzone Quad [id number] IM 07/16/18 10:01 .ONCE ONE Insulin Aspart 0 unit 07/15/18 12:00 07/15/18 12:14 Novolog SC 4 u Q6H [facility] Administration Protocol Pneumococcal Polyvalent Vaccine 0.5 ml 07/16/18 10:00 Pneumovax 23 Vaccine IM 07/16/18 10:01 .ONCE ONE - Patient Studies Lab Studies: Microbiology Studies 07/14/18 13:29 Blood Culture - Preliminary Blood NO GROWTH AFTER 24 HOURS 07/14/18 13:29 Blood Culture - Preliminary Blood NO GROWTH AFTER 24 HOURS Lab Studies 07/15/18 07/15/18 07/15/18 Range/Units 11:33 07:22 07:22 WBC (4.8-10.8) K/uL RBC (3.80-5.20) Mil/uL Hgb (11.0-16.0) g/dL Hct (34.0-47.0) % MCV (81.0-99.0) fL MCH (27.0-31.0) pg MCHC (33.0-37.0) g/dL RDW (11.5-14.5) % Plt Count (130-400) K/uL MPV (7.2-11.7) fL Blood Gas Comments Sodium 149 H (132-148) mmol/L Potassium 3.0 L (3.6-5.2) mmol/L Chloride 122 H (98-107) mmol/L Carbon Dioxide 19 L (22-30) mmol/L Anion Gap 11 (10-20) BUN 62 H (7-17) mg/dL Creatinine 1.3 H (0.7-1.2) mg/dL Est GFR ( Amer) 49 Est GFR (Non-Af Amer) 40 POC Glucose (mg/dL) 225 H 330 H (65-110) mg/dL Random Glucose 321 H (65-105) mg/dL Calcium 8.6 (8.6-10.4) mg/dl Phosphorus 3.1 (2.5-4.5) mg/dL Magnesium 1.8 (1.6-2.3) mg/dL Total Bilirubin 0.4 (0.2-1.3) mg/dL AST 63 H D (14-36) U/L ALT 23 (9-52) U/L Alkaline Phosphatase 127 H D (38-126) U/L Total Protein 5.8 L (6.3-8.3) g/dL Albumin 2.5 L (3.5-5.0) g/dL Globulin 3.3 (2.2-3.9) gm/dL Albumin/Globulin Ratio 0.8 L (1.0-2.1) Urine Color (YELLOW) Urine Clarity (Clear) Urine pH (5.0-8.0) Ur Specific Dickens (1.003-1.030) Urine Protein (NEGATIVE) mg/dL Urine Glucose (UA) (Normal) mg/dL Urine Ketones (NEGATIVE) mg/dL Urine Blood (NEGATIVE) Urine Nitrate (NEGATIVE) Urine Bilirubin (NEGATIVE) Urine Urobilinogen (0.2-1.0) mg/dL Ur Leukocyte Esterase (Negative) Windy/uL Urine WBC (Auto) (0-5) /hpf Urine RBC (Auto) (0-3) /hpf Urine WBC Clumps (Auto) (NONE) /hpf Ur Squamous Epith Cells (0-5) /hpf Ur Transition Epith Cell (0-3) /hpf Calcium Oxalate Crystal (<OCC) /hpf Urine Bacteria (<OCC) Urine Yeast (Budding) (NEGATIVE) /hpf 07/15/18 07/15/18 07/14/18 Range/Units 07:22 06:31 22:47 WBC 18.2 H (4.8-10.8) K/uL RBC 3.81 (3.80-5.20) Mil/uL Hgb 9.7 L (11.0-16.0) g/dL Hct 31.1 L (34.0-47.0) % MCV 81.6 (81.0-99.0) fL MCH 25.4 L (27.0-31.0) pg MCHC 31.1 L (33.0-37.0) g/dL RDW 16.9 H (11.5-14.5) % Plt Count 377 (130-400) K/uL MPV 9.4 (7.2-11.7) fL Blood Gas Comments Sodium (132-148) mmol/L Potassium (3.6-5.2) mmol/L Chloride (98-107) mmol/L Carbon Dioxide (22-30) mmol/L Anion Gap (10-20) BUN (7-17) mg/dL Creatinine (0.7-1.2) mg/dL Est GFR ( Amer) Est GFR (Non-Af Amer) POC Glucose (mg/dL) 294 H 273 H (65-110) mg/dL Random Glucose (65-105) mg/dL Calcium (8.6-10.4) mg/dl Phosphorus (2.5-4.5) mg/dL Magnesium (1.6-2.3) mg/dL Total Bilirubin (0.2-1.3) mg/dL AST (14-36) U/L ALT (9-52) U/L Alkaline Phosphatase (38-126) U/L Total Protein (6.3-8.3) g/dL Albumin (3.5-5.0) g/dL Globulin (2.2-3.9) gm/dL Albumin/Globulin Ratio (1.0-2.1) Urine Color (YELLOW) Urine Clarity (Clear) Urine pH (5.0-8.0) Ur Specific Dickens (1.003-1.030) Urine Protein (NEGATIVE) mg/dL Urine Glucose (UA) (Normal) mg/dL Urine Ketones (NEGATIVE) mg/dL Urine Blood (NEGATIVE) Urine Nitrate (NEGATIVE) Urine Bilirubin (NEGATIVE) Urine Urobilinogen (0.2-1.0) mg/dL Ur Leukocyte Esterase (Negative) Windy/uL Urine WBC (Auto) (0-5) /hpf Urine RBC (Auto) (0-3) /hpf Urine WBC Clumps (Auto) (NONE) /hpf Ur Squamous Epith Cells (0-5) /hpf Ur Transition Epith Cell (0-3) /hpf Calcium Oxalate Crystal (<OCC) /hpf Urine Bacteria (<OCC) Urine Yeast (Budding) (NEGATIVE) /hpf 07/14/18 07/14/18 07/14/18 Range/Units 20:35 19:04 12:00 WBC (4.8-10.8) K/uL RBC (3.80-5.20) Mil/uL Hgb (11.0-16.0) g/dL Hct (34.0-47.0) % MCV (81.0-99.0) fL MCH (27.0-31.0) pg MCHC (33.0-37.0) g/dL RDW (11.5-14.5) % Plt Count (130-400) K/uL MPV (7.2-11.7) fL Blood Gas Comments Nota bene this is an arterial extraction Sodium (132-148) mmol/L Potassium (3.6-5.2) mmol/L Chloride (98-107) mmol/L Carbon Dioxide (22-30) mmol/L Anion Gap (10-20) BUN (7-17) mg/dL Creatinine (0.7-1.2) mg/dL Est GFR ( Amer) Est GFR (Non-Af Amer) POC Glucose (mg/dL) 349 H (65-110) mg/dL Random Glucose (65-105) mg/dL Calcium (8.6-10.4) mg/dl Phosphorus (2.5-4.5) mg/dL Magnesium (1.6-2.3) mg/dL Total Bilirubin (0.2-1.3) mg/dL AST (14-36) U/L ALT (9-52) U/L Alkaline Phosphatase (38-126) U/L Total Protein (6.3-8.3) g/dL Albumin (3.5-5.0) g/dL Globulin (2.2-3.9) gm/dL Albumin/Globulin Ratio (1.0-2.1) Urine Color Yellow (YELLOW) Urine Clarity Hazy (Clear) Urine pH 5.0 (5.0-8.0) Ur Specific Dickens 1.011 (1.003-1.030) Urine Protein Negative (NEGATIVE) mg/dL Urine Glucose (UA) Normal (Normal) mg/dL Urine Ketones Negative (NEGATIVE) mg/dL Urine Blood 3+ H (NEGATIVE) Urine Nitrate Negative (NEGATIVE) Urine Bilirubin Negative (NEGATIVE) Urine Urobilinogen Normal (0.2-1.0) mg/dL Ur Leukocyte Esterase 3+ H (Negative) Windy/uL Urine WBC (Auto) 189 H (0-5) /hpf Urine RBC (Auto) 46 H (0-3) /hpf Urine WBC Clumps (Auto) Many H (NONE) /hpf Ur Squamous Epith Cells 9 H (0-5) /hpf Ur Transition Epith Cell 1 (0-3) /hpf Calcium Oxalate Crystal Rare (<OCC) /hpf Urine Bacteria Occ H (<OCC) Urine Yeast (Budding) Many H (NEGATIVE) /hpf Laboratory Results - last 24 hr 07/14/18 07/14/18 07/14/18 12:00 19:04 20:35 WBC RBC Hgb Hct MCV MCH MCHC RDW Plt Count MPV Blood Gas Comments Nota bene this is an arterial extraction Sodium Potassium Chloride Carbon Dioxide Anion Gap BUN Creatinine Est GFR ( Amer) Est GFR (Non-Af Amer) POC Glucose (mg/dL) 349 H Random Glucose Calcium Phosphorus Magnesium Total Bilirubin AST ALT Alkaline Phosphatase Total Protein Albumin Globulin Albumin/Globulin Ratio Urine Color Yellow Urine Clarity Hazy Urine pH 5.0 Ur Specific Dickens 1.011 Urine Protein Negative Urine Glucose (UA) Normal Urine Ketones Negative Urine Blood 3+ H Urine Nitrate Negative Urine Bilirubin Negative Urine Urobilinogen Normal Ur Leukocyte Esterase 3+ H Urine WBC (Auto) 189 H Urine RBC (Auto) 46 H Urine WBC Clumps (Auto) Many H Ur Squamous Epith Cells 9 H Ur Transition Epith Cell 1 Calcium Oxalate Crystal Rare Urine Bacteria Occ H Urine Yeast (Budding) Many H 07/14/18 07/15/18 07/15/18 22:47 06:31 07:22 WBC 18.2 H RBC 3.81 Hgb 9.7 L Hct 31.1 L MCV 81.6 MCH 25.4 L MCHC 31.1 L RDW 16.9 H Plt Count 377 MPV 9.4 Blood Gas Comments Sodium Potassium Chloride Carbon Dioxide Anion Gap BUN Creatinine Est GFR ( Amer) Est GFR (Non-Af Amer) POC Glucose (mg/dL) 273 H 294 H Random Glucose Calcium Phosphorus Magnesium Total Bilirubin AST ALT Alkaline Phosphatase Total Protein Albumin Globulin Albumin/Globulin Ratio Urine Color Urine Clarity Urine pH Ur Specific Dickens Urine Protein Urine Glucose (UA) Urine Ketones Urine Blood Urine Nitrate Urine Bilirubin Urine Urobilinogen Ur Leukocyte Esterase Urine WBC (Auto) Urine RBC (Auto) Urine WBC Clumps (Auto) Ur Squamous Epith Cells Ur Transition Epith Cell Calcium Oxalate Crystal Urine Bacteria Urine Yeast (Budding) 07/15/18 07/15/18 07/15/18 07:22 07:22 11:33 WBC RBC Hgb Hct MCV MCH MCHC RDW Plt Count MPV Blood Gas Comments Sodium 149 H Potassium 3.0 L Chloride 122 H Carbon Dioxide 19 L Anion Gap 11 BUN 62 H Creatinine 1.3 H Est GFR ( Amer) 49 Est GFR (Non-Af Amer) 40 POC Glucose (mg/dL) 330 H 225 H Random Glucose 321 H Calcium 8.6 Phosphorus 3.1 Magnesium 1.8 Total Bilirubin 0.4 AST 63 H D ALT 23 Alkaline Phosphatase 127 H D Total Protein 5.8 L Albumin 2.5 L Globulin 3.3 Albumin/Globulin Ratio 0.8 L Urine Color Urine Clarity Urine pH Ur Specific Dickens Urine Protein Urine Glucose (UA) Urine Ketones Urine Blood Urine Nitrate Urine Bilirubin Urine Urobilinogen Ur Leukocyte Esterase Urine WBC (Auto) Urine RBC (Auto) Urine WBC Clumps (Auto) Ur Squamous Epith Cells Ur Transition Epith Cell Calcium Oxalate Crystal Urine Bacteria Urine Yeast (Budding) EKG/Cardiology Studies: Cardiology / EKG Studies 07/14/18 18:00 EKG [ELECTROCARDIOGRAM] Stat Comment: Mode Of Transportation: BED Reason For Exam: cp bed 9 Critical Care Progress Note - Nutrition Nutrition: Nutrition Category Date Time Status NPO Diet [DIET] Diets 07/14/18 Dinner Active Attending/Attestation - Attestation I have personally seen and examined this patient.: Yes I have fully participated in the care of the patient.: Yes I have reviewed all pertinent clinical information: Yes Notes (Text): 07/15/18 17:50 72 year old female with PMH of Peripheral Vascular Disease and is s/p multiple endovascular stent placements to left iliac, SFA and popliteal. Patient also has history of DM, HTN, hypercholesterolemia, right BKA, bipolar depression disorder with multiple psychiatric admissions, LLE fem-pop bypass with reversed GSV graft, multiple admissions for altered mental status. p/w septic shock and AMS. Patient is in ICU for close monitoring and treatment. Patient with IJ central line placed X-ray of the right lung infiltrate Continue antibiotics taper levophed as tolerated Potassium supplement
[2018-07-16] MEDS: (Novolog) Insulin Aspart, Recombinant 100 u/ml 10 ml vial SC SCH ×4 (00:19→18:15)
[2018-07-16] MEDS: Lactated Ringer's 1,000 ML IV ONE (01:30)
[2018-07-16] MEDS: Lactated Ringer's 1,000 ML IV SCH (01:45)
[2018-07-16 03:44] LABS: BASO % 0.2 % (0.0-2.0); EOS # 0.1 K/uL (0.0-0.7); EOS % 0.6 % (0.0-4.0); HEMOGLOBIN 9.7 g/dL (11.0-16.0); LYMPH # 1.6 K/uL (1.0-4.3); LYMPH % 9.8 % (20.0-40.0); MEAN CELL VOLUME 80.1 fL (81.0-99.0); MEAN CORPUSCULAR HEMOGLOBIN 25.3 pg (27.0-31.0); MEAN CORPUSCULAR HGB CONC 31.6 g/dL (33.0-37.0); MEAN PLATELET VOLUME 8.8 fL (7.2-11.7); MONO # 0.9 K/uL (0.0-0.8); MONO % 5.4 % (0.0-10.0); NEUT # 13.3 K/uL (1.8-7.0); NRBC % 0.2 % (0.0-2.0); PLATELET COUNT 332 K/uL (130-400); RBC 3.83 Mil/uL (3.80-5.20); RED CELL DISTRIBUTION WIDTH 16.8 % (11.5-14.5); WHITE BLOOD COUNT 15.9 K/uL (4.8-10.8)
[2018-07-16 03:59] LABS: ALB/GLOB RATIO 0.8 (1.0-2.1); ALBUMIN 2.5 g/dL (3.5-5.0); ALT/SGPT 23 U/L (9-52); AST/SGOT 48 U/L (14-36); BLOOD UREA NITROGEN 35 mg/dL (7-17); CALCIUM 8.7 mg/dl (8.6-10.4); GFR NON-AFRICAN AMERICAN 55
[2018-07-16 05:04] LABS: ANISOCYTOSIS MODERATE; HYPOCHROMIC SLIGHT; LYMPHOCYTE 10 % (20-40); MONOCYTE 6 % (0-10); NEUTROPHIL 84 % (50-75); PLATELET ESTIMATE NORMAL (NORMAL); POIKILOCYTOSIS SLIGHT; TOTAL CELLS COUNTED 100
[2018-07-16] MEDS ORDERED: Potassium Phosphate 30 MMOLE in Sodium Chloride 0.9% 250 ML IV ONE (05:54)
[2018-07-16] MEDS: Magnesium Sulfate 1 gm in D5W 1 GM/100 ML BAG IVPB SCH ×4 (06:15→10:59)
[2018-07-16] MEDS: Vasopressin 40 UNITS in Dextrose 5% In Water 40 ML IV SCH ×2 (06:40→16:29)
[2018-07-16 07:00] LABS: TROPONIN I 15.1 ng/mL (0.00-0.120)
[2018-07-16] MEDS ORDERED: Potassium Chloride 20 mEq/15 ml LIQ UD PO ONE (08:00)
[2018-07-16] MEDS ORDERED: Magnesium Sulfate 1 gm in D5W 1 GM/100 ML BAG IVPB ONE (08:01)
--- NOTE | 2018-07-16 08:26 | RAD ---
Chest x-ray single frontal view HISTORY: Sepsis. COMPARISON: 07/15/2018 FINDINGS: Right central venous catheter tip extending into the right SVC. Opacifications seen within the right hemithorax with right basilar airspace opacity and right-sided pleural effusion. Prominent ovoid consolidative opacity seen in the right midlung zone. Atherosclerotic calcification and plaque at the aortic. Cardiomegaly. Degenerative changes in the spine. Impression: No significant interval change.
[2018-07-16 09:26] LABS: ARTERIAL BLOOD GAS HCO3 20.9 mmol/L (21-28); ARTERIAL BLOOD GAS HEMOGLOBIN 8.9 g/dL (11.7-17.4); ARTERIAL BLOOD GAS O2 SAT 63.1 % (95-98); ARTERIAL BLOOD GAS PCO2 31 mm/Hg (35-45); ARTERIAL BLOOD GAS PH 7.41 (7.35-7.45); ARTERIAL BLOOD GAS PO2 30 mm/Hg (80-100); ARTERIAL BLOOD GAS TCO2 20.6 mmol/L (22-28)
--- NOTE | 2018-07-16 09:34 | CP.PCM.PN ---
Subjective - Date & Time of Evaluation Date of Evaluation: 07/16/18 Time of Evaluation: 07:00 - Subjective Subjective: Vascular surgery consult for Dr. Lam Pt seen and examined this AM. No adverse events overnight. Patient denies any pain and foot appears less mottled this AM Objective - Vital Signs/Intake and Output Vital Signs (last 24 hours): Temp Pulse Resp BP Pulse Ox 99.2 F 89 21 106/45 L 97 07/16/18 08:00 07/16/18 09:10 07/16/18 09:10 07/16/18 09:07 07/16/18 09:10 Intake and Output: 07/16/18 07/16/18 06:59 18:59 Intake Total 2387.7 211.8 Output Total 1600 200 Balance 787.7 11.8 - Medications Medications: Current Medications Divalproex Sodium (Depakote Er) 250 mg PO HS XAVIER Last Admin: 07/16/18 00:15 Dose: Not Given Heparin Sodium (Porcine) (Heparin) 5,000 units SC Q8 XAVIER Last Admin: 07/16/18 07:45 Dose: 5,000 units Vancomycin/Sodium Chloride (Vancomycin 1 Gm/Ns 200 Ml) 1 gm in 200 mls @ 133.333 mls/hr IVPB Q24H XAVIER; Protocol Stop: 07/20/18 02:31 Ceftazidime/Avibactam 1.25 gm/ (Sodium Chloride) 100 mls @ 50 mls/hr IV Q8H XAVIER; Protocol Last Admin: 07/16/18 08:04 Dose: 50 mls/hr Potassium Phosphate 30 mmole/ (Sodium Chloride) 260 mls @ 63 mls/hr IV ONCE ONE Stop: 07/16/18 09:52 Last Admin: 07/16/18 06:35 Dose: 63 mls/hr Vasopressin 40 units/ Dextrose 42 mls @ 0.63 mls/hr IV .Q24H XAVIER; Protocol Last Admin: 07/16/18 06:40 Dose: 0.01 units/min, 0.63 mls/hr Diltiazem HCl 125 mg/ Dextrose 125 mls @ 5 mls/hr IV .Q24H XAVIER; Protocol Last Admin: 07/16/18 06:30 Dose: 5 mg/hr, 5 mls/hr Potassium Chloride (Potassium Chloride 20 Meq/100 Ml) 20 meq in 100 mls @ 50 mls/hr IVPB ONCE ONE Stop: 07/16/18 09:44 Last Admin: 07/16/18 08:38 Dose: 50 mls/hr Potassium Chloride (Potassium Chloride 20 Meq/100 Ml) 20 meq in 100 mls @ 50 mls/hr IVPB ONCE ONE Stop: 07/16/18 10:14 Influenza Virus Vaccine (Fluzone Quad [id number]) 60 mcg IM .ONCE ONE Stop: 07/16/18 10:01 Insulin Aspart (Novolog) 0 unit SC Q6H XAVIER; Protocol Last Admin: 07/16/18 08:03 Dose: 6 units Pneumococcal Polyvalent Vaccine (Pneumovax 23 Vaccine) 0.5 ml IM .ONCE ONE Stop: 07/16/18 10:01 Rosuvastatin Calcium (Crestor) 2.5 mg PO HS XAVIER - Labs Labs: 07/16/18 03:40 07/16/18 03:40 PT 15.6 SECONDS (9.7-12.2) H 07/14/18 13:15 INR 1.4 07/14/18 13:15 APTT 31 SECONDS (21-34) 07/14/18 13:15 - Constitutional Appears: Non-toxic, No Acute Distress, Chronically Ill - Head Exam Head Exam: ATRAUMATIC, NORMOCEPHALIC - Eye Exam Eye Exam: Normal appearance. absent: Conjunctival injection, Scleral icterus - ENT Exam ENT Exam: Mucous Membranes Moist, Normal Oropharynx - Respiratory Exam Respiratory Exam: NORMAL BREATHING PATTERN. absent: Accessory Muscle Use, Respiratory Distress - Cardiovascular Exam Cardiovascular Exam: RRR - GI/Abdominal Exam GI & Abdominal Exam: Soft. absent: Distended - Extremities Exam Additional comments: Mild skin mottling of left lower leg with area of discoloration/thickening of the dorsal foot. Foot is cool but improving temperature, pedal pulses not palpable - Neurological Exam Neurological Exam: Altered - Psychiatric Exam Psychiatric exam: Normal Affect, Normal Mood - Skin Additional comments: see extremity exam above Assessment and Plan - Assessment and Plan (Free Text) Assessment: 72F with PMH of PVD with ischemic leg, possible vascular occlusion Plan: F/U arterial duplex of the leg Continue current medical management No intervention currently planned--will follow up studies PRN pain medication Discussed with Dr. Lam, who agrees with above Barbara Hardy, PGY2
[2018-07-16] MEDS ORDERED: Pneumococcal 23-Valent Vaccine IM ONE (10:00)
[2018-07-16] MEDS ORDERED: Influenza Vaccine 60 MCG/0.5 ML SYR (3 yr & up) IM ONE (10:00)
--- NOTE | 2018-07-16 10:46 | PN ---
DATE: 07/16/2018 SUBJECTIVE: I came to see her this morning. Apparently, she was in AFib and I had to give her Cardizem. Potassium was also quite low and I had to replace potassium. She is alert, very confused. She is currently on , antibiotics IV, Cardizem IV, dextrose, Depakote, heparin, lactated Ringers, magnesium replacement, Levophed, Novolog, potassium replacement, vancomycin IV. PHYSICAL EXAMINATION: GENERAL: She is alert, confused. She looked at me, is slow to respond. VITAL SIGNS: 98.4 temp, 86 pulse, 119/56 blood pressure, 14 respiratory rate, 99% sat on O2. HEENT: Head is atraumatic, normocephalic. She looks at you, stares, smiles a little bit. HEART: Irregular rate. She had AFib this morning. LUNGS: Decreased breath sounds, but clear. ABDOMEN: Soft. EXTREMITIES: Left foot looks a little grayish. The right BKA was mottled when she came in, now the skin is back to her normal appearance. LABORATORY DATA: Sodium 151 and potassium 3, they have replaced potassium. BUN 35 and creatinine 1, much better. She came in with acute kidney injury, it is much better. GFR is less than 55, last blood sugar is 253, calcium is 8.7, phos is 1.9, magnesium 1.6, total bili is 0.5, AST is 48, ALT is 23, alk phos 104, total protein is 5.8. White count is down to 15.9, getting better, 9.7 hemoglobin, 30.6 hematocrit, 332 platelets. ASSESSMENT AND PLAN: She is not out of the arce yet, but there are some signs of improving. She is on insulin coverage. We will continue doing that before I can put her back on her oral medication for diabetes. Swallow olga ordered. She has multiple consults, Cardiology, Vascular, Infectious Disease, Neurology, [employer]. We will continue with aggressive treatment and care. Septic shock, peripheral vascular disease, atrial fibrillation, acute kidney injury. Continue with aggressive treatment and care in the intensive care unit. Haja Pink DO [facility] # [id number] ELOISA
[2018-07-16] MEDS ORDERED: Norepinephrine 8 MG in Sodium Chloride 0.9% 242 ML IV PRN (10:59)
[2018-07-16 13:58] LABS: BASO # 0.1 K/uL (0.0-0.2); BASO % 0.6 % (0.0-2.0); EOS # 0.1 K/uL (0.0-0.7); EOS % 0.7 % (0.0-4.0); LYMPH # 1.9 K/uL (1.0-4.3); LYMPH % 13.4 % (20.0-40.0); MEAN CELL VOLUME 79.5 fL (81.0-99.0); MEAN CORPUSCULAR HEMOGLOBIN 25.4 pg (27.0-31.0); MEAN PLATELET VOLUME 8.7 fL (7.2-11.7); MONO # 0.7 K/uL (0.0-0.8); MONO % 4.8 % (0.0-10.0); NEUT # 11.2 K/uL (1.8-7.0); NEUT % 80.5 % (50.0-75.0); NRBC % 0.2 % (0.0-2.0); RBC 3.52 Mil/uL (3.80-5.20); RED CELL DISTRIBUTION WIDTH 16.8 % (11.5-14.5); WHITE BLOOD COUNT 13.9 K/uL (4.8-10.8)
[2018-07-16 14:25] LABS: ALB/GLOB RATIO 0.8 (1.0-2.1); ALBUMIN 2.6 g/dL (3.5-5.0); ALT/SGPT 21 U/L (9-52); AST/SGOT 34 U/L (14-36); BLOOD UREA NITROGEN 25 mg/dL (7-17); CALCIUM 8.7 mg/dl (8.6-10.4); GFR NON-AFRICAN AMERICAN > 60
[2018-07-16 14:33] LABS: CK-MB 6.87 ng/mL (0.0-3.38)
--- NOTE | 2018-07-16 14:43 | CP.PCM.PN ---
Subjective - Date & Time of Evaluation Date of Evaluation: 07/16/18 Time of Evaluation: 08:00 - Subjective Subjective: hx of multiple UTI's with ESBL gram neg in past Now with UTI, pneumonia , cellulitis and possible ischemia of limbs Objective - Vital Signs/Intake and Output Vital Signs (last 24 hours): Temp Pulse Resp BP Pulse Ox 99.4 F 84 22 107/50 L 98 07/16/18 12:00 07/16/18 14:02 07/16/18 14:02 07/16/18 14:02 07/16/18 14:02 Intake and Output: 07/16/18 07/16/18 06:59 18:59 Intake Total 2387.7 984.0 Output Total 1600 1400 Balance 787.7 -416.0 - Medications Medications: Current Medications Divalproex Sodium (Depakote Er) 250 mg PO HS XAVIER Last Admin: 07/16/18 00:15 Dose: Not Given Heparin Sodium (Porcine) (Heparin) 5,000 units SC Q8 XAVIER Last Admin: 07/16/18 07:45 Dose: 5,000 units Vancomycin/Sodium Chloride (Vancomycin 1 Gm/Ns 200 Ml) 1 gm in 200 mls @ 133.333 mls/hr IVPB Q24H XAVIER; Protocol Stop: 07/20/18 02:31 Ceftazidime/Avibactam 1.25 gm/ (Sodium Chloride) 100 mls @ 50 mls/hr IV Q8H XAVIER; Protocol Last Admin: 07/16/18 08:04 Dose: 50 mls/hr Vasopressin 40 units/ Dextrose 42 mls @ 0.63 mls/hr IV .Q24H XAVIER; Protocol Last Admin: 07/16/18 06:40 Dose: 0.01 units/min, 0.63 mls/hr Diltiazem HCl 125 mg/ Dextrose 125 mls @ 5 mls/hr IV .Q24H XAVIER; Protocol Last Admin: 07/16/18 06:30 Dose: 5 mg/hr, 5 mls/hr Norepinephrine Bitartrate 8 mg (/ Sodium Chloride) 250 mls @ 7.5 mls/hr IV .Q24H PRN; Protocol PRN Reason: TITRATE PER MD ORDER Last Titration: 07/16/18 10:45 Dose: 5 mcg/min, 9.38 mls/hr Insulin Aspart (Novolog) 0 unit SC Q6H XAVIER; Protocol Last Admin: 07/16/18 12:31 Dose: 4 units Rosuvastatin Calcium (Crestor) 2.5 mg PO HS XAVIER - Labs Labs: 07/16/18 13:54 07/16/18 13:54 PT 15.6 SECONDS (9.7-12.2) H 07/14/18 13:15 INR 1.4 07/14/18 13:15 APTT 31 SECONDS (21-34) 07/14/18 13:15 - Constitutional Appears: Confused, Chronically Ill - Head Exam Head Exam: NORMOCEPHALIC - Eye Exam Eye Exam: absent: Scleral icterus - ENT Exam ENT Exam: Mucous Membranes Dry - Neck Exam Neck Exam: absent: Lymphadenopathy - Respiratory Exam Respiratory Exam: Decreased Breath Sounds - Cardiovascular Exam Cardiovascular Exam: REGULAR RHYTHM - GI/Abdominal Exam GI & Abdominal Exam: Distended, Soft - Rectal Exam Rectal Exam: Deferred - Exam Exam: NORMAL INSPECTION - Extremities Exam Additional comments: right bka left foot cool - Back Exam Back Exam: absent: CVA tenderness (L), CVA tenderness (R) - Neurological Exam Neurological Exam: Altered - Psychiatric Exam Psychiatric exam: Depressed - Skin Skin Exam: Dry Assessment and Plan (1) Cellulitis Status: Acute (2) Septic shock Status: Acute (3) TAMEKA (acute kidney injury) Status: Acute (4) Acute respiratory failure with hypoxemia Status: Acute (5) Altered mental status Status: Acute (6) Bipolar disorder Status: Acute (7) CKD (chronic kidney disease) stage 3, GFR 30-59 ml/min Status: Acute (8) Cellulitis, leg Status: Acute - Assessment and Plan (Free Text) Assessment: hx of multiple UTI's with ESBL gram neg in past Now with UTI, pneumonia , cellulitis and possible ischemia of limbs blood cultures neg thus far cont iv rx
[2018-07-16] MEDS: Vancomycin 1 gm/NS 200 ml 1 GM/200 ML BAG IVPB SCH (15:08)
--- NOTE | 2018-07-16 15:08 | CARD ---
APPROVED REPORT Date of service: 07/16/2018 EXAM: Two-dimensional and M-mode echocardiogram with Doppler and color Doppler. Other Information Quality : GoodRhythm : INDICATION Acute SC RISK FACTORS Diabetes 2D DIMENSIONS IVSd0.9 (0.7-1.1cm)Aortic Root (2D)2.2 (2.0-3.7cm) LVDd4.1 (3.9-5.9cm)PWd0.8 (0.7-1.1cm) LA Wtorgf64 (18-58mL)LVDs2.8 (2.5-4.0cm) FS (%) 32.4 %LVEF (%)61.2 (>50%) LVEF (Carrion's)55 %IVC0.00 cm M-Mode DIMENSIONS Left Atrium (MM)3.92 (2.5-4.0cm)IVSd0.73 (0.7-1.1cm) Aortic Root2.50 (2.2-3.7cm)LVDd4.37 (4.0-5.6cm) Aortic Cusp Exc.1.39 (1.5-2.0cm)PWd0.79 (0.7-1.1cm) FS (%) 32 %LVDs2.98 (2.0-3.8cm) TAPSE15.49 cmLVEF (%)60 (>50%) Mitral Valve MV E Bfnlpprd730.9cm/sMV A Upiqwkyg862.0cm/sE/A ratio1.3 TDI Lateral E' Peak V8.68cm/sMedial E' Peak V5.96cm/sE/Lateral E'14.9 E/Medial E'21.6 Tricuspid Valve TR Peak [id number]/sTR Peak [id number] LEFT VENTRICLE The left ventricle is normal size. There is normal left ventricular wall thickness. Left ventricle systolic function is mildly impaired. The Ejection Fraction is 40-45%. Septum and apex moderately hypokinetic Transmitral Doppler flow pattern is Grade II-pseudonormal filling dynamics. LV filling pressure is mildly increased No left ventricle thrombus noted on this study. There is no ventricular septal defect visualized. There is no left ventricular aneurysm. There is no mass noted in the left ventricle. RIGHT VENTRICLE The right ventricle is normal size. There is normal right ventricular wall thickness. The right ventricular systolic function is normal. ATRIA The left atrium volume is mildly increased The right atrium size is normal. The interatrial septum is intact with no evidence for an atrial septal defect. AORTIC VALVE The aortic valve is mildly calcified. No aortic regurgitation is present. There is no aortic valvular stenosis. There is no aortic valvular vegetation. MITRAL VALVE The mitral valve is normal in structure and function. There is no evidence of mitral valve prolapse. There is no mitral valve stenosis. There is no mitral valve regurgitation noted. TRICUSPID VALVE The tricuspid valve is normal in structure and function. There is mild to moderate tricuspid regurgitation. Right ventricular systolic pressure is estimated at 40-50 mmHg. There is no tricuspid valve prolapse or vegetation. There is no tricuspid valve stenosis. PULMONIC VALVE The pulmonary valve is normal in structure and function. There is no pulmonic valvular regurgitation. There is no pulmonic valvular stenosis. GREAT VESSELS The aortic root is normal in size. The ascending aorta is normal in size. The pulmonary artery is normal. The IVC is normal in size and collapses >50% with inspiration. PERICARDIAL EFFUSION The pericardium appears normal. There is no pleural effusion. <Conclusion> Left ventricle systolic function is mildly impaired. The Ejection Fraction is 40-45%. Septum and apex moderately hypokinetic Transmitral Doppler flow pattern is Grade II-pseudonormal filling dynamics. LV filling pressure is mildly increased The left atrium volume is mildly increased There is mild to moderate tricuspid regurgitation. Right ventricular systolic pressure is estimated at 40-50 mmHg.
--- NOTE | 2018-07-16 17:44 | CP.CCUPN ---
<Durga Sol - Last Filed: 07/16/18 17:37> CCU Subjective - Physician Review Events Since Last Encounter (Free Text): 07/16/18 17:38 Patient went into atrial fibrillation with rapid ventricular response. Cardizem 10mg IVP x 2 doses was administered followed by continuous infusion, per nurse report. Subjective (Free Text): 07/16/18 17:37 PGY1 Critical Care Progress Note For Dr. Cordero Patient seen and evaluated at bedside. Patient alert but not able to communicate verbally and is altered. Patient's son was at bedside this morning. Per patient's son, the patient's baseline is mostly non-verbal. Patient has a hard time communicating anything other than generalized pain. Thus, 12 point ROS could not be obtained due to clinical condition. Critical Care Time Spent (in minutes): 35 CCU Objective - Vital Signs / Intake & Output Vital Signs (Last 4 hours): Vital Signs Temp Pulse Resp BP Pulse Ox 07/16/18 17:10 85 25 H 97 07/16/18 17:02 81 24 107/42 L 97 07/16/18 17:00 82 21 96 07/16/18 16:50 87 16 97 07/16/18 16:48 81 18 106/44 L 96 07/16/18 16:40 82 17 97 07/16/18 16:33 84 11 L 131/96 H 97 07/16/18 16:30 82 18 97 07/16/18 16:29 112/67 07/16/18 16:20 80 14 97 07/16/18 16:17 82 23 97 07/16/18 16:10 79 22 97 07/16/18 16:02 81 18 112/46 L 97 07/16/18 16:00 99.3 F 78 15 97 07/16/18 15:50 80 22 97 07/16/18 15:47 81 20 112/49 L 98 07/16/18 15:40 81 14 97 07/16/18 15:32 78 18 105/51 L 97 07/16/18 15:30 81 20 97 07/16/18 15:17 97/52 L 07/16/18 15:10 83 19 98 07/16/18 15:02 82 19 107/52 L 97 07/16/18 15:00 83 20 109/62 97 07/16/18 14:50 81 20 98 07/16/18 14:47 82 22 109/62 98 07/16/18 14:40 82 21 98 07/16/18 14:32 83 22 104/64 97 07/16/18 14:30 86 24 97 07/16/18 14:20 84 23 98 07/16/18 14:17 101/56 L 07/16/18 14:02 84 22 107/50 L 98 07/16/18 14:00 82 25 H 98 07/16/18 13:50 81 22 98 07/16/18 13:47 84 22 93/49 L 98 07/16/18 13:40 81 23 98 Intake and Output (Last 8hrs): Intake & Output 07/16/18 07/16/18 07/16/18 06:59 14:59 22:59 Intake Total 1677.7 995.8 319.8 Output Total 1500 1400 525 Balance 177.7 -404.2 -205.2 Weight 126 lb 4.8 oz Intake: IV 254 115 42 Intake, IV Amount 1423.7 880.8 277.8 Left Hand 5 20 R IJ distal 0.6 19.2 7.2 Right Distal Port 330.1 127.6 20.6 Internal Jugular Right Medial Port 975 525 250 Internal Jugular Right Proximal Port 113 189 Internal Jugular Output: Urine 1500 1400 525 Urethral (Ann) 1500 1400 525 Stool 0 Emesis 0 - Physical Exam Other physical findings (Free Text): - Constitutional Appears: Unkempt - Head Exam Head Exam: ATRAUMATIC, NORMAL INSPECTION, NORMOCEPHALIC - Eye Exam Eye Exam: EOMI, Normal appearance, PERRL - ENT Exam ENT Exam: Mucous Membranes Dry - Respiratory Exam Respiratory Exam: Clear to Auscultation Bilateral, NORMAL BREATHING PATTERN - Cardiovascular Exam Cardiovascular Exam: REGULAR RHYTHM - GI/Abdominal Exam GI & Abdominal Exam: Normal Bowel Sounds, Soft. absent: Tenderness - Neurological Exam Neurological exam: Alert, Altered (lethargic) Other findings: patient ulcer in sacrum, left heel, right lower buttocks, right hip, right lower knee, right elbow, - Medications Active Medications: Active Medications Generic Name Dose Route Start Last Admin Trade Name Freq PRN Reason Stop Dose Admin Aspirin 300 mg 07/16/18 17:45 Aspirin Supp IA DAILY XAVIER Divalproex Sodium 250 mg 07/14/18 22:00 07/16/18 00:15 Depakote Er PO Not Given [facility] Heparin Sodium (Porcine) 5,000 units 07/14/18 22:30 07/16/18 15:07 Heparin SC 5,000 units Q8 XAVIER Administration Vancomycin/Sodium Chloride 1 gm in 200 mls @ 133.333 mls/hr 07/16/18 14:30 07/16/18 15:08 Vancomycin 1 Gm/Ns 200 Ml IVPB 07/20/18 02:31 133.333 mls/hr Q24H [facility] Administration Protocol Ceftazidime/Avibactam 1.25 gm/ 100 mls @ 50 mls/hr 07/16/18 00:00 07/16/18 16:05 Sodium Chloride IV 50 mls/hr Q8H [facility] Administration Protocol Vasopressin 40 units/ Dextrose 42 mls @ 0.63 mls/hr 07/16/18 06:15 07/16/18 16:29 IV 0.04 units/min .Q24H XAVIER 2.52 mls/hr Administration Protocol 0.01 UNITS/MIN Diltiazem HCl 125 mg/ Dextrose 125 mls @ 5 mls/hr 07/16/18 06:30 07/16/18 11:00 IV 0 mg/hr .Q24H XAVIER 0 mls/hr Titration Protocol 5 MG/HR Norepinephrine Bitartrate 8 mg 250 mls @ 7.5 mls/hr 07/16/18 10:59 07/16/18 14:00 / Sodium Chloride IV 4 mcg/min .Q24H PRN 7.5 mls/hr TITRATE PER MD ORDER Titration Protocol 4 MCG/MIN Insulin Aspart 0 unit 07/15/18 12:00 07/16/18 12:31 Novolog SC 4 units Q6H [facility] Administration Protocol Rosuvastatin Calcium 2.5 mg 07/16/18 22:[address] [facility] - Patient Studies Lab Studies: Microbiology Studies 07/15/18 07:22 MRSA Culture (Admit) - Final Naris MRSA NOT DETECTED 07/14/18 20:35 Urine Culture - Final Urine,Catheterized Yeast Species 07/14/18 17:17 Urine Culture - Final Urine,Clean Catch Yeast Species 07/14/18 13:29 Blood Culture - Preliminary Blood NO GROWTH AFTER 48 HOURS 07/14/18 13:29 Blood Culture - Preliminary Blood NO GROWTH AFTER 48 HOURS Lab Studies 07/16/18 07/16/18 07/16/18 Range/Units 13:54 13:54 09:20 WBC 13.9 H (4.8-10.8) K/uL RBC 3.52 L (3.80-5.20) Mil/uL Hgb 9.0 L (11.0-16.0) g/dL Hct 28.0 L (34.0-47.0) % MCV 79.5 L (81.0-99.0) fL MCH 25.4 L (27.0-31.0) pg MCHC 32.0 L (33.0-37.0) g/dL RDW 16.8 H (11.5-14.5) % Plt Count 276 (130-400) K/uL MPV 8.7 (7.2-11.7) fL Neut % (Auto) 80.5 H (50.0-75.0) % Lymph % (Auto) 13.4 L (20.0-40.0) % Baca % (Auto) 4.8 (0.0-10.0) % Eos % (Auto) 0.7 (0.0-4.0) % Baso % (Auto) 0.6 (0.0-2.0) % Neut # (Auto) 11.2 H (1.8-7.0) K/uL Lymph # (Auto) 1.9 (1.0-4.3) K/uL [place] # (Auto) 0.7 (0.0-0.8) K/uL Eos # (Auto) 0.1 (0.0-0.7) K/uL Baso # (Auto) 0.1 (0.0-0.2) K/uL Neutrophils % (Manual) (50-75) % Lymphocytes % (Manual) (20-40) % Monocytes % (Manual) (0-10) % Platelet Estimate (NORMAL) Hypochromasia (manual) Poikilocytosis (manual Anisocytosis (manual) Puncture Site Rra pCO2 31 L (35-45) mm/Hg pO2 30 L* (80-100) mm/Hg HCO3 20.9 L (21-28) mmol/L ABG pH 7.41 (7.35-7.45) ABG Total CO2 20.6 L (22-28) mmol/L ABG O2 Saturation 63.1 L (95-98) % ABG Base Excess -4.4 L (-2.0-3.0) mmol/L ABG Hemoglobin 8.9 L (11.7-17.4) g/dL ABG Carboxyhemoglobin 2.9 H (0.5-1.5) % POC ABG HHb (Measured) 35.2 H (0.0-5.0) % ABG Methemoglobin 1.6 (0.0-3.0) % Perez Test Na Hgb O2 Saturation 60.3 L (95.0-98.0) % Liter Flow 3.0 FiO2 32.0 % Sodium 149 H (132-148) mmol/L Potassium 4.0 (3.6-5.2) mmol/L Chloride 117 H (98-107) mmol/L Carbon Dioxide 26 (22-30) mmol/L Anion Gap 11 (10-20) BUN 25 H (7-17) mg/dL Creatinine 0.9 (0.7-1.2) mg/dL Est GFR ( Amer) > 60 Est GFR (Non-Af Amer) > 60 POC Glucose (mg/dL) (65-110) mg/dL Random Glucose 170 H (65-105) mg/dL Calcium 8.7 (8.6-10.4) mg/dl Phosphorus 3.2 (2.5-4.5) mg/dL Magnesium 2.4 H (1.6-2.3) mg/dL Total Bilirubin 0.5 (0.2-1.3) mg/dL AST 34 (14-36) U/L ALT 21 (9-52) U/L Alkaline Phosphatase 112 (38-126) U/L Total Creatine Kinase 102 (30-135) U/L CK-MB (Mass) 6.87 H (0.0-3.38) ng/mL Troponin I 12.5000 H* (0.00-0.120) ng/mL NT-Pro-B Natriuret Pep (0-900) pg/mL Total Protein 5.7 L (6.3-8.3) g/dL Albumin 2.6 L (3.5-5.0) g/dL Globulin 3.2 (2.2-3.9) gm/dL Albumin/Globulin Ratio 0.8 L (1.0-2.1) Random Vancomycin ug/mL 07/16/18 07/16/18 07/16/18 Range/Units 07:38 06:25 03:40 WBC (4.8-10.8) K/uL RBC (3.80-5.20) Mil/uL Hgb (11.0-16.0) g/dL Hct (34.0-47.0) % MCV (81.0-99.0) fL MCH (27.0-31.0) pg MCHC (33.0-37.0) g/dL RDW (11.5-14.5) % Plt Count (130-400) K/uL MPV (7.2-11.7) fL Neut % (Auto) (50.0-75.0) % Lymph % (Auto) (20.0-40.0) % Baca % (Auto) (0.0-10.0) % Eos % (Auto) (0.0-4.0) % Baso % (Auto) (0.0-2.0) % Neut # (Auto) (1.8-7.0) K/uL Lymph # (Auto) (1.0-4.3) K/uL [place] # (Auto) (0.0-0.8) K/uL Eos # (Auto) (0.0-0.7) K/uL Baso # (Auto) (0.0-0.2) K/uL Neutrophils % (Manual) (50-75) % Lymphocytes % (Manual) (20-40) % Monocytes % (Manual) (0-10) % Platelet Estimate (NORMAL) Hypochromasia (manual) Poikilocytosis (manual Anisocytosis (manual) Puncture Site pCO2 (35-45) mm/Hg pO2 (80-100) mm/Hg HCO3 (21-28) mmol/L ABG pH (7.35-7.45) ABG Total CO2 (22-28) mmol/L ABG O2 Saturation (95-98) % ABG Base Excess (-2.0-3.0) mmol/L ABG Hemoglobin (11.7-17.4) g/dL ABG Carboxyhemoglobin (0.5-1.5) % POC ABG HHb (Measured) (0.0-5.0) % ABG Methemoglobin (0.0-3.0) % Perez Test Hgb O2 Saturation (95.0-98.0) % Liter Flow FiO2 % Sodium 151 H (132-148) mmol/L Potassium 3.0 L (3.6-5.2) mmol/L Chloride 118 H (98-107) mmol/L Carbon Dioxide 25 (22-30) mmol/L Anion Gap 11 (10-20) BUN 35 H (7-17) mg/dL Creatinine 1.0 (0.7-1.2) mg/dL Est GFR ( Amer) > 60 Est GFR (Non-Af Amer) 55 POC Glucose (mg/dL) 296 H (65-110) mg/dL Random Glucose 253 H (65-105) mg/dL Calcium 8.7 (8.6-10.4) mg/dl Phosphorus 1.9 L (2.5-4.5) mg/dL Magnesium 1.6 (1.6-2.3) mg/dL Total Bilirubin 0.5 (0.2-1.3) mg/dL AST 48 H D (14-36) U/L ALT 23 (9-52) U/L Alkaline Phosphatase 104 (38-126) U/L Total Creatine Kinase (30-135) U/L CK-MB (Mass) (0.0-3.38) ng/mL Troponin I 15.1000 H* (0.00-0.120) ng/mL NT-Pro-B Natriuret Pep 03347 H (0-900) pg/mL Total Protein 5.8 L (6.3-8.3) g/dL Albumin 2.5 L (3.5-5.0) g/dL Globulin 3.3 (2.2-3.9) gm/dL Albumin/Globulin Ratio 0.8 L (1.0-2.1) Random Vancomycin ug/mL 07/16/18 07/16/18 07/16/18 Range/Units 03:40 03:40 00:00 WBC 15.9 H (4.8-10.8) K/uL RBC 3.83 (3.80-5.20) Mil/uL Hgb 9.7 L (11.0-16.0) g/dL Hct 30.6 L (34.0-47.0) % MCV 80.1 L (81.0-99.0) fL MCH 25.3 L (27.0-31.0) pg MCHC 31.6 L (33.0-37.0) g/dL RDW 16.8 H (11.5-14.5) % Plt Count 332 (130-400) K/uL MPV 8.8 (7.2-11.7) fL Neut % (Auto) 84.0 H (50.0-75.0) % Lymph % (Auto) 9.8 L (20.0-40.0) % Baca % (Auto) 5.4 (0.0-10.0) % Eos % (Auto) 0.6 (0.0-4.0) % Baso % (Auto) 0.2 (0.0-2.0) % Neut # (Auto) 13.3 H (1.8-7.0) K/uL Lymph # (Auto) 1.6 (1.0-4.3) K/uL [place] # (Auto) 0.9 H (0.0-0.8) K/uL Eos # (Auto) 0.1 (0.0-0.7) K/uL Baso # (Auto) 0.0 (0.0-0.2) K/uL Neutrophils % (Manual) 84 H (50-75) % Lymphocytes % (Manual) 10 L (20-40) % Monocytes % (Manual) 6 (0-10) % Platelet Estimate Normal (NORMAL) Hypochromasia (manual) Slight Poikilocytosis (manual Slight Anisocytosis (manual) Moderate Puncture Site pCO2 (35-45) mm/Hg pO2 (80-100) mm/Hg HCO3 (21-28) mmol/L ABG pH (7.35-7.45) ABG Total CO2 (22-28) mmol/L ABG O2 Saturation (95-98) % ABG Base Excess (-2.0-3.0) mmol/L ABG Hemoglobin (11.7-17.4) g/dL ABG Carboxyhemoglobin (0.5-1.5) % POC ABG HHb (Measured) (0.0-5.0) % ABG Methemoglobin (0.0-3.0) % Perez Test Hgb O2 Saturation (95.0-98.0) % Liter Flow FiO2 % Sodium (132-148) mmol/L Potassium (3.6-5.2) mmol/L Chloride (98-107) mmol/L Carbon Dioxide (22-30) mmol/L Anion Gap (10-20) BUN (7-17) mg/dL Creatinine (0.7-1.2) mg/dL Est GFR ( Amer) Est GFR (Non-Af Amer) POC Glucose (mg/dL) 245 H (65-110) mg/dL Random Glucose (65-105) mg/dL Calcium (8.6-10.4) mg/dl Phosphorus (2.5-4.5) mg/dL Magnesium (1.6-2.3) mg/dL Total Bilirubin (0.2-1.3) mg/dL AST (14-36) U/L ALT (9-52) U/L Alkaline Phosphatase (38-126) U/L Total Creatine Kinase (30-135) U/L CK-MB (Mass) (0.0-3.38) ng/mL Troponin I (0.00-0.120) ng/mL NT-Pro-B Natriuret Pep (0-900) pg/mL Total Protein (6.3-8.3) g/dL Albumin (3.5-5.0) g/dL Globulin (2.2-3.9) gm/dL Albumin/Globulin Ratio (1.0-2.1) Random Vancomycin 23.7 ug/mL 07/15/18 Range/Units 17:47 WBC (4.8-10.8) K/uL RBC (3.80-5.20) Mil/uL Hgb (11.0-16.0) g/dL Hct (34.0-47.0) % MCV (81.0-99.0) fL MCH (27.0-31.0) pg MCHC (33.0-37.0) g/dL RDW (11.5-14.5) % Plt Count (130-400) K/uL MPV (7.2-11.7) fL Neut % (Auto) (50.0-75.0) % Lymph % (Auto) (20.0-40.0) % [place]aca % (Auto) (0.0-10.0) % Eos % (Auto) (0.0-4.0) % Baso % (Auto) (0.0-2.0) % Neut # (Auto) (1.8-7.0) K/uL Lymph # (Auto) (1.0-4.3) K/uL [place] # (Auto) (0.0-0.8) K/uL Eos # (Auto) (0.0-0.7) K/uL Baso # (Auto) (0.0-0.2) K/uL Neutrophils % (Manual) (50-75) % Lymphocytes % (Manual) (20-40) % Monocytes % (Manual) (0-10) % Platelet Estimate (NORMAL) Hypochromasia (manual) Poikilocytosis (manual Anisocytosis (manual) Puncture Site pCO2 (35-45) mm/Hg pO2 (80-100) mm/Hg HCO3 (21-28) mmol/L ABG pH (7.35-7.45) ABG Total CO2 (22-28) mmol/L ABG O2 Saturation (95-98) % ABG Base Excess (-2.0-3.0) mmol/L ABG Hemoglobin (11.7-17.4) g/dL ABG Carboxyhemoglobin (0.5-1.5) % POC ABG HHb (Measured) (0.0-5.0) % ABG Methemoglobin (0.0-3.0) % Perez Test Hgb O2 Saturation (95.0-98.0) % Liter Flow FiO2 % Sodium (132-148) mmol/L Potassium (3.6-5.2) mmol/L Chloride (98-107) mmol/L Carbon Dioxide (22-30) mmol/L Anion Gap (10-20) BUN (7-17) mg/dL Creatinine (0.7-1.2) mg/dL Est GFR ( Amer) Est GFR (Non-Af Amer) POC Glucose (mg/dL) 158 H (65-110) mg/dL Random Glucose (65-105) mg/dL Calcium (8.6-10.4) mg/dl Phosphorus (2.5-4.5) mg/dL Magnesium (1.6-2.3) mg/dL Total Bilirubin (0.2-1.3) mg/dL AST (14-36) U/L ALT (9-52) U/L Alkaline Phosphatase (38-126) U/L Total Creatine Kinase (30-135) U/L CK-MB (Mass) (0.0-3.38) ng/mL Troponin I (0.00-0.120) ng/mL NT-Pro-B Natriuret Pep (0-900) pg/mL Total Protein (6.3-8.3) g/dL Albumin (3.5-5.0) g/dL Globulin (2.2-3.9) gm/dL Albumin/Globulin Ratio (1.0-2.1) Random Vancomycin ug/mL Laboratory Results - last 24 hr 07/15/18 07/16/18 07/16/18 17:47 00:00 03:40 WBC RBC Hgb Hct MCV MCH MCHC RDW Plt Count MPV Neut % (Auto) Lymph % (Auto) [place] % (Auto) Eos % (Auto) Baso % (Auto) Neut # (Auto) Lymph # (Auto) [place] # (Auto) Eos # (Auto) Baso # (Auto) Neutrophils % (Manual) Lymphocytes % (Manual) Monocytes % (Manual) Platelet Estimate Hypochromasia (manual) Poikilocytosis (manual Anisocytosis (manual) Puncture Site pCO2 pO2 HCO3 ABG pH ABG Total CO2 ABG O2 Saturation ABG Base Excess ABG Hemoglobin ABG Carboxyhemoglobin POC ABG HHb (Measured) ABG Methemoglobin Perez Test Hgb O2 Saturation Liter Flow FiO2 Sodium Potassium Chloride Carbon Dioxide Anion Gap BUN Creatinine Est GFR ( Amer) Est GFR (Non-Af Amer) POC Glucose (mg/dL) 158 H 245 H Random Glucose Calcium Phosphorus Magnesium Total Bilirubin AST ALT Alkaline Phosphatase Total Creatine Kinase CK-MB (Mass) Troponin I NT-Pro-B Natriuret Pep Total Protein Albumin Globulin Albumin/Globulin Ratio Random Vancomycin 23.7 07/16/18 07/16/18 07/16/18 03:40 03:40 06:25 WBC 15.9 H RBC 3.83 Hgb 9.7 L Hct 30.6 L MCV 80.1 L MCH 25.3 L MCHC 31.6 L RDW 16.8 H Plt Count 332 MPV 8.8 Neut % (Auto) 84.0 H Lymph % (Auto) 9.8 L [place] % (Auto) 5.4 Eos % (Auto) 0.6 Baso % (Auto) 0.2 Neut # (Auto) 13.3 H Lymph # (Auto) 1.6 [place] # (Auto) 0.9 H Eos # (Auto) 0.1 Baso # (Auto) 0.0 Neutrophils % (Manual) 84 H Lymphocytes % (Manual) 10 L Monocytes % (Manual) 6 Platelet Estimate Normal Hypochromasia (manual) Slight Poikilocytosis (manual Slight Anisocytosis (manual) Moderate Puncture Site pCO2 pO2 HCO3 ABG pH ABG Total CO2 ABG O2 Saturation ABG Base Excess ABG Hemoglobin ABG Carboxyhemoglobin POC ABG HHb (Measured) ABG Methemoglobin Perez Test Hgb O2 Saturation Liter Flow FiO2 Sodium 151 H Potassium 3.0 L Chloride 118 H Carbon Dioxide 25 Anion Gap 11 BUN 35 H Creatinine 1.0 Est GFR ( Amer) > 60 Est GFR (Non-Af Amer) 55 POC Glucose (mg/dL) Random Glucose 253 H Calcium 8.7 Phosphorus 1.9 L Magnesium 1.6 Total Bilirubin 0.5 AST 48 H D ALT 23 Alkaline Phosphatase 104 Total Creatine Kinase CK-MB (Mass) Troponin I 15.1000 H* NT-Pro-B Natriuret Pep 87644 H Total Protein 5.8 L Albumin 2.5 L Globulin 3.3 Albumin/Globulin Ratio 0.8 L Random Vancomycin 07/16/18 07/16/18 07/16/18 07:38 09:20 13:54 WBC RBC Hgb Hct MCV MCH MCHC RDW Plt Count MPV Neut % (Auto) Lymph % (Auto) [place] % (Auto) Eos % (Auto) Baso % (Auto) Neut # (Auto) Lymph # (Auto) [place] # (Auto) Eos # (Auto) Baso # (Auto) Neutrophils % (Manual) Lymphocytes % (Manual) Monocytes % (Manual) Platelet Estimate Hypochromasia (manual) Poikilocytosis (manual Anisocytosis (manual) Puncture Site Rra pCO2 31 L pO2 30 L* HCO3 20.9 L ABG pH 7.41 ABG Total CO2 20.6 L ABG O2 Saturation 63.1 L ABG Base Excess -4.4 L ABG Hemoglobin 8.9 L ABG Carboxyhemoglobin 2.9 H POC ABG HHb (Measured) 35.2 H ABG Methemoglobin 1.6 Perez Test Na Hgb O2 Saturation 60.3 L Liter Flow 3.0 FiO2 32.0 Sodium 149 H Potassium 4.0 Chloride 117 H Carbon Dioxide 26 Anion Gap 11 BUN 25 H Creatinine 0.9 Est GFR ( Amer) > 60 Est GFR (Non-Af Amer) > 60 POC Glucose (mg/dL) 296 H Random Glucose 170 H Calcium 8.7 Phosphorus 3.2 Magnesium 2.4 H Total Bilirubin 0.5 AST 34 ALT 21 Alkaline Phosphatase 112 Total Creatine Kinase 102 CK-MB (Mass) 6.87 H Troponin I 12.5000 H* NT-Pro-B Natriuret Pep Total Protein 5.7 L Albumin 2.6 L Globulin 3.2 Albumin/Globulin Ratio 0.8 L Random Vancomycin 07/16/18 13:54 WBC 13.9 H RBC 3.52 L Hgb 9.0 L Hct 28.0 L MCV 79.5 L MCH 25.4 L MCHC 32.0 L RDW 16.8 H Plt Count 276 MPV 8.7 Neut % (Auto) 80.5 H Lymph % (Auto) 13.4 L [place] % (Auto) 4.8 Eos % (Auto) 0.7 Baso % (Auto) 0.6 Neut # (Auto) 11.2 H Lymph # (Auto) 1.9 [place] # (Auto) 0.7 Eos # (Auto) 0.1 Baso # (Auto) 0.1 Neutrophils % (Manual) Lymphocytes % (Manual) Monocytes % (Manual) Platelet Estimate Hypochromasia (manual) Poikilocytosis (manual Anisocytosis (manual) Puncture Site pCO2 pO2 HCO3 ABG pH ABG Total CO2 ABG O2 Saturation ABG Base Excess ABG Hemoglobin ABG Carboxyhemoglobin POC ABG HHb (Measured) ABG Methemoglobin Perez Test Hgb O2 Saturation Liter Flow FiO2 Sodium Potassium Chloride Carbon Dioxide Anion Gap BUN Creatinine Est GFR ( Amer) Est GFR (Non-Af Amer) POC Glucose (mg/dL) Random Glucose Calcium Phosphorus Magnesium Total Bilirubin AST ALT Alkaline Phosphatase Total Creatine Kinase CK-MB (Mass) Troponin I NT-Pro-B Natriuret Pep Total Protein Albumin Globulin Albumin/Globulin Ratio Random Vancomycin EKG/Cardiology Studies: Cardiology / EKG Studies 07/16/18 06:14 EKG [ELECTROCARDIOGRAM] Stat Comment: Mode Of Transportation: PORTABLE Reason For Exam: atrial tach Fingerstick Blood Sugar Results: 215 Review of Systems - Review of Systems Systems not reviewed;Unavailable: Altered Mental Status Critical Care Progress Note - Nutrition Nutrition: Nutrition Category Date Time Status NPO Diet [DIET] Diets 07/14/18 Dinner Active Assessment/Plan - Assessment and Plan (Free Text) Assessment: 72 year old female with PMH of Peripheral Vascular Disease and is s/p multiple endovascular stent placements to left iliac, SFA and popliteal. Patient also has history of DM, HTN, hypercholesterolemia, right BKA, bipolar depression disorder with multiple psychiatric admissions, LLE fem-pop bypass with reversed GSV graft, multiple admissions for altered mental status. p/w septic shock and AMS. Patient is in ICU for close monitoring and treatment. Patient with IJ central line placed on 07/15. 07/16/18 Patient went into atrial fibrillation with rapid ventricular response. Cardizem 10mg IVP x 2 doses was administered followed by continuous infusion, per nurse report. Neuro: - Alert, altered mental status - Metabolic encephalopathy - When at baseline again, patient should be evaluated for dementia, as episodes of AMS are getting more frequent. Pulm: - No acute issues - Saturating well on RA - Monitor CV: - Septic shock - Patient on Levophed administered via Right IJ (placed 07/15) - Atrial fibrillation with RVR - Cardizem 10mg IVP x2 doses was administered followed by continuous infusion - ECHO pending - Cardiology consulted; Dr. Leavitt; recommendations appreciated - ASA 300 IA - media monitor - Monitor Mg, Phos, CMP Hem: - leukocytosis likely 2/2 sepsis - Antibiotics initiated: Vancomycin, Ceftazidime - Dr. Morgan consulted; recommendations appreciated Renal - No acute issues - LR@125 - Monitor CMP, Mg, Phos Endo: - no acute issues GI: - NPO - LR@125 : - Intake: 5868.2mL - Output: 3724mL - Balance: 2144.2mL - Monitor I&Os ID: - Septic shock, multiple sources of infection with sacral and other pressure ulcers - UTI - Possible pneumonia underneath her pleural effusion. - Continue Vancomycin and Ceftazidime - Dr. Morgan consulted; recommendations appreciated DVT proph - heparin sq GI proph - not currently indicated ann for strict I/O's during acute illness Code status - full code Patient seen and case discussed in detail with Dr. Justin Sol PGY1 <Mj Anderson - Last Filed: 07/16/18 19:21> CCU Objective - Vital Signs / Intake & Output Vital Signs (Last 4 hours): Vital Signs Temp Pulse Resp BP Pulse Ox 07/16/18 18:10 85 24 97 07/16/18 18:02 81 23 114/57 L 97 07/16/18 18:00 86 22 97 07/16/18 17:50 83 21 97 07/16/18 17:47 81 22 111/57 L 97 07/16/18 17:40 81 22 96 07/16/18 17:32 103/66 07/16/18 17:30 82 24 96 07/16/18 17:17 91/58 L 07/16/18 17:10 85 25 H 97 07/16/18 17:02 81 24 107/42 L 97 07/16/18 17:00 82 21 96 07/16/18 16:50 87 16 97 07/16/18 16:48 81 18 106/44 L 96 07/16/18 16:40 82 17 97 07/16/18 16:33 84 11 L 131/96 H 97 07/16/18 16:30 82 18 97 07/16/18 16:29 112/67 07/16/18 16:20 80 14 97 07/16/18 16:17 82 23 97 07/16/18 16:10 79 22 97 07/16/18 16:02 81 18 112/46 L 97 07/16/18 16:00 99.3 F 78 15 97 07/16/18 15:50 80 22 97 07/16/18 15:47 81 20 112/49 L 98 07/16/18 15:40 81 14 97 07/16/18 15:32 78 18 105/51 L 97 07/16/18 15:30 81 20 97 07/16/18 15:17 97/52 L 07/16/18 15:10 83 19 98 Intake and Output (Last 8hrs): Intake & Output 07/16/18 07/16/18 07/16/18 06:59 14:59 22:59 Intake Total 1677.7 995.8 327.8 Output Total 1500 1400 600 Balance 177.7 -404.2 -272.2 Weight 126 lb 4.8 oz Intake: IV 254 115 42 Intake, IV Amount 1423.7 880.8 285.8 Left Hand 5 20 R IJ distal 0.6 19.2 9.6 Right Distal Port 330.1 127.6 26.2 Internal Jugular Right Medial Port 975 525 250 Internal Jugular Right Proximal Port 113 189 Internal Jugular Output: Urine 1500 1400 600 Urethral (Ann) 1500 1400 600 Stool 0 Emesis 0 - Medications Active Medications: Active Medications Generic Name Dose Route Start Last Admin Trade Name Freq PRN Reason Stop Dose Admin Aspirin 300 mg 07/16/18 17:45 07/16/18 18:38 Aspirin Supp IA 300 mg DAILY XAVIER Administration Divalproex Sodium 250 mg 07/14/18 22:00 07/16/18 00:15 Depakote Er PO Not Given HS XAVIER Heparin Sodium (Porcine) 5,000 units 07/14/18 22:30 07/16/18 15:07 Heparin SC 5,000 units Q8 XAVIER Administration Vancomycin/Sodium Chloride 1 gm in 200 mls @ 133.333 mls/hr 07/16/18 14:30 07/16/18 15:08 Vancomycin 1 Gm/Ns 200 Ml IVPB 07/20/18 02:31 133.333 mls/hr Q24H XAVIER Administration Protocol Ceftazidime/Avibactam 1.25 gm/ 100 mls @ 50 mls/hr 07/16/18 00:00 07/16/18 16:05 Sodium Chloride IV 50 mls/hr Q8H XAVIER Administration Protocol Vasopressin 40 units/ Dextrose 42 mls @ 0.63 mls/hr 07/16/18 06:15 07/16/18 16:29 IV 0.04 units/min .Q24H XAVIER 2.52 mls/hr Administration Protocol 0.01 UNITS/MIN Diltiazem HCl 125 mg/ Dextrose 125 mls @ 5 mls/hr 07/16/18 06:30 07/16/18 11:00 IV 0 mg/hr .Q24H XAVIER 0 mls/hr Titration Protocol 5 MG/HR Norepinephrine Bitartrate 8 mg 250 mls @ 7.5 mls/hr 07/16/18 10:59 07/16/18 14:00 / Sodium Chloride IV 4 mcg/min .Q24H PRN 7.5 mls/hr TITRATE PER MD ORDER Titration Protocol 4 MCG/MIN Insulin Aspart 0 unit 07/15/18 12:00 07/16/18 18:15 Novolog SC Not Given Q6H [facility] Protocol Rosuvastatin Calcium 2.5 mg 07/16/18 22:00 Crestor PO HS XAVIER - Patient Studies Lab Studies: Microbiology Studies 07/15/18 07:22 MRSA Culture (Admit) - Final Naris MRSA NOT DETECTED 07/14/18 20:35 Urine Culture - Final Urine,Catheterized Yeast Species 07/14/18 17:17 Urine Culture - Final Urine,Clean Catch Yeast Species 07/14/18 13:29 Blood Culture - Preliminary Blood NO GROWTH AFTER 48 HOURS 07/14/18 13:29 Blood Culture - Preliminary Blood NO GROWTH AFTER 48 HOURS Lab Studies 07/16/18 07/16/18 07/16/18 Range/Units 18:27 13:54 13:54 WBC 13.9 H (4.8-10.8) K/uL RBC 3.52 L (3.80-5.20) Mil/uL Hgb 9.0 L (11.0-16.0) g/dL Hct 28.0 L (34.0-47.0) % MCV 79.5 L (81.0-99.0) fL MCH 25.4 L (27.0-31.0) pg MCHC 32.0 L (33.0-37.0) g/dL RDW 16.8 H (11.5-14.5) % Plt Count 276 (130-400) K/uL MPV 8.7 (7.2-11.7) fL Neut % (Auto) 80.5 H (50.0-75.0) % Lymph % (Auto) 13.4 L (20.0-40.0) % [place] % (Auto) 4.8 (0.0-10.0) % Eos % (Auto) 0.7 (0.0-4.0) % Baso % (Auto) 0.6 (0.0-2.0) % Neut # (Auto) 11.2 H (1.8-7.0) K/uL Lymph # (Auto) 1.9 (1.0-4.3) K/uL [place] # (Auto) 0.7 (0.0-0.8) K/uL Eos # (Auto) 0.1 (0.0-0.7) K/uL Baso # (Auto) 0.1 (0.0-0.2) K/uL Neutrophils % (Manual) (50-75) % Lymphocytes % (Manual) (20-40) % Monocytes % (Manual) (0-10) % Platelet Estimate (NORMAL) Hypochromasia (manual) Poikilocytosis (manual Anisocytosis (manual) Puncture Site pCO2 (35-45) mm/Hg pO2 (80-100) mm/Hg HCO3 (21-28) mmol/L ABG pH (7.35-7.45) ABG Total CO2 (22-28) mmol/L ABG O2 Saturation (95-98) % ABG Base Excess (-2.0-3.0) mmol/L ABG Hemoglobin (11.7-17.4) g/dL ABG Carboxyhemoglobin (0.5-1.5) % POC ABG HHb (Measured) (0.0-5.0) % ABG Methemoglobin (0.0-3.0) % Perez Test Hgb O2 Saturation (95.0-98.0) % Liter Flow FiO2 % Sodium 149 H (132-148) mmol/L Potassium 4.0 (3.6-5.2) mmol/L Chloride 117 H (98-107) mmol/L Carbon Dioxide 26 (22-30) mmol/L Anion Gap 11 (10-20) BUN 25 H (7-17) mg/dL Creatinine 0.9 (0.7-1.2) mg/dL Est GFR ( Amer) > 60 Est GFR (Non-Af Amer) > 60 POC Glucose (mg/dL) (65-110) mg/dL Random Glucose 170 H (65-105) mg/dL Calcium 8.7 (8.6-10.4) mg/dl Phosphorus 3.2 (2.5-4.5) mg/dL Magnesium 2.4 H (1.6-2.3) mg/dL Total Bilirubin 0.5 (0.2-1.3) mg/dL AST 34 (14-36) U/L ALT 21 (9-52) U/L Alkaline Phosphatase 112 (38-126) U/L Total Creatine Kinase 89 102 (30-135) U/L CK-MB (Mass) 6.87 H (0.0-3.38) ng/mL Troponin I 12.5000 H* (0.00-0.120) ng/mL NT-Pro-B Natriuret Pep (0-900) pg/mL Total Protein 5.7 L (6.3-8.3) g/dL Albumin 2.6 L (3.5-5.0) g/dL Globulin 3.2 (2.2-3.9) gm/dL Albumin/Globulin Ratio 0.8 L (1.0-2.1) Random Vancomycin ug/mL 07/16/18 07/16/18 07/16/18 Range/Units 09:20 07:38 06:25 WBC (4.8-10.8) K/uL RBC (3.80-5.20) Mil/uL Hgb (11.0-16.0) g/dL Hct (34.0-47.0) % MCV (81.0-99.0) fL MCH (27.0-31.0) pg MCHC (33.0-37.0) g/dL RDW (11.5-14.5) % Plt Count (130-400) K/uL MPV (7.2-11.7) fL Neut % (Auto) (50.0-75.0) % Lymph % (Auto) (20.0-40.0) % Baca % (Auto) (0.0-10.0) % Eos % (Auto) (0.0-4.0) % Baso % (Auto) (0.0-2.0) % Neut # (Auto) (1.8-7.0) K/uL Lymph # (Auto) (1.0-4.3) K/uL [place] # (Auto) (0.0-0.8) K/uL Eos # (Auto) (0.0-0.7) K/uL Baso # (Auto) (0.0-0.2) K/uL Neutrophils % (Manual) (50-75) % Lymphocytes % (Manual) (20-40) % Monocytes % (Manual) (0-10) % Platelet Estimate (NORMAL) Hypochromasia (manual) Poikilocytosis (manual Anisocytosis (manual) Puncture Site Rra pCO2 31 L (35-45) mm/Hg pO2 30 L* (80-100) mm/Hg HCO3 20.9 L (21-28) mmol/L ABG pH 7.41 (7.35-7.45) ABG Total CO2 20.6 L (22-28) mmol/L ABG O2 Saturation 63.1 L (95-98) % ABG Base Excess -4.4 L (-2.0-3.0) mmol/L ABG Hemoglobin 8.9 L (11.7-17.4) g/dL ABG Carboxyhemoglobin 2.9 H (0.5-1.5) % POC ABG HHb (Measured) 35.2 H (0.0-5.0) % ABG Methemoglobin 1.6 (0.0-3.0) % Perez Test Na Hgb O2 Saturation 60.3 L (95.0-98.0) % Liter Flow 3.0 FiO2 32.0 % Sodium (132-148) mmol/L Potassium (3.6-5.2) mmol/L Chloride (98-107) mmol/L Carbon Dioxide (22-30) mmol/L Anion Gap (10-20) BUN (7-17) mg/dL Creatinine (0.7-1.2) mg/dL Est GFR ( Amer) Est GFR (Non-Af Amer) POC Glucose (mg/dL) 296 H (65-110) mg/dL Random Glucose (65-105) mg/dL Calcium (8.6-10.4) mg/dl Phosphorus (2.5-4.5) mg/dL Magnesium (1.6-2.3) mg/dL Total Bilirubin (0.2-1.3) mg/dL AST (14-36) U/L ALT (9-52) U/L Alkaline Phosphatase (38-126) U/L Total Creatine Kinase (30-135) U/L CK-MB (Mass) (0.0-3.38) ng/mL Troponin I 15.1000 H* (0.00-0.120) ng/mL NT-Pro-B Natriuret Pep 48031 H (0-900) pg/mL Total Protein (6.3-8.3) g/dL Albumin (3.5-5.0) g/dL Globulin (2.2-3.9) gm/dL Albumin/Globulin Ratio (1.0-2.1) Random Vancomycin ug/mL 07/16/18 07/16/18 07/16/18 Range/Units 03:40 03:40 03:40 WBC 15.9 H (4.8-10.8) K/uL RBC 3.83 (3.80-5.20) Mil/uL Hgb 9.7 L (11.0-16.0) g/dL Hct 30.6 L (34.0-47.0) % MCV 80.1 L (81.0-99.0) fL MCH 25.3 L (27.0-31.0) pg MCHC 31.6 L (33.0-37.0) g/dL RDW 16.8 H (11.5-14.5) % Plt Count 332 (130-400) K/uL MPV 8.8 (7.2-11.7) fL Neut % (Auto) 84.0 H (50.0-75.0) % Lymph % (Auto) 9.8 L (20.0-40.0) % Baca % (Auto) 5.4 (0.0-10.0) % Eos % (Auto) 0.6 (0.0-4.0) % Baso % (Auto) 0.2 (0.0-2.0) % Neut # (Auto) 13.3 H (1.8-7.0) K/uL Lymph # (Auto) 1.6 (1.0-4.3) K/uL [place] # (Auto) 0.9 H (0.0-0.8) K/uL Eos # (Auto) 0.1 (0.0-0.7) K/uL Baso # (Auto) 0.0 (0.0-0.2) K/uL Neutrophils % (Manual) 84 H (50-75) % Lymphocytes % (Manual) 10 L (20-40) % Monocytes % (Manual) 6 (0-10) % Platelet Estimate Normal (NORMAL) Hypochromasia (manual) Slight Poikilocytosis (manual Slight Anisocytosis (manual) Moderate Puncture Site pCO2 (35-45) mm/Hg pO2 (80-100) mm/Hg HCO3 (21-28) mmol/L ABG pH (7.35-7.45) ABG Total CO2 (22-28) mmol/L ABG O2 Saturation (95-98) % ABG Base Excess (-2.0-3.0) mmol/L ABG Hemoglobin (11.7-17.4) g/dL ABG Carboxyhemoglobin (0.5-1.5) % POC ABG HHb (Measured) (0.0-5.0) % ABG Methemoglobin (0.0-3.0) % Perez Test Hgb O2 Saturation (95.0-98.0) % Liter Flow FiO2 % Sodium 151 H (132-148) mmol/L Potassium 3.0 L (3.6-5.2) mmol/L Chloride 118 H (98-107) mmol/L Carbon Dioxide 25 (22-30) mmol/L Anion Gap 11 (10-20) BUN 35 H (7-17) mg/dL Creatinine 1.0 (0.7-1.2) mg/dL Est GFR ( Amer) > 60 Est GFR (Non-Af Amer) 55 POC Glucose (mg/dL) (65-110) mg/dL Random Glucose 253 H (65-105) mg/dL Calcium 8.7 (8.6-10.4) mg/dl Phosphorus 1.9 L (2.5-4.5) mg/dL Magnesium 1.6 (1.6-2.3) mg/dL Total Bilirubin 0.5 (0.2-1.3) mg/dL AST 48 H D (14-36) U/L ALT 23 (9-52) U/L Alkaline Phosphatase 104 (38-126) U/L Total Creatine Kinase (30-135) U/L CK-MB (Mass) (0.0-3.38) ng/mL Troponin I (0.00-0.120) ng/mL NT-Pro-B Natriuret Pep (0-900) pg/mL Total Protein 5.8 L (6.3-8.3) g/dL Albumin 2.5 L (3.5-5.0) g/dL Globulin 3.3 (2.2-3.9) gm/dL Albumin/Globulin Ratio 0.8 L (1.0-2.1) Random Vancomycin 23.7 ug/mL 07/16/18 Range/Units 00:00 WBC (4.8-10.8) K/uL RBC (3.80-5.20) Mil/uL Hgb (11.0-16.0) g/dL Hct (34.0-47.0) % MCV (81.0-99.0) fL MCH (27.0-31.0) pg MCHC (33.0-37.0) g/dL RDW (11.5-14.5) % Plt Count (130-400) K/uL MPV (7.2-11.7) fL Neut % (Auto) (50.0-75.0) % Lymph % (Auto) (20.0-40.0) % [place] % (Auto) (0.0-10.0) % Eos % (Auto) (0.0-4.0) % Baso % (Auto) (0.0-2.0) % Neut # (Auto) (1.8-7.0) K/uL Lymph # (Auto) (1.0-4.3) K/uL [place] # (Auto) (0.0-0.8) K/uL Eos # (Auto) (0.0-0.7) K/uL Baso # (Auto) (0.0-0.2) K/uL Neutrophils % (Manual) (50-75) % Lymphocytes % (Manual) (20-40) % Monocytes % (Manual) (0-10) % Platelet Estimate (NORMAL) Hypochromasia (manual) Poikilocytosis (manual Anisocytosis (manual) Puncture Site pCO2 (35-45) mm/Hg pO2 (80-100) mm/Hg HCO3 (21-28) mmol/L ABG pH (7.35-7.45) ABG Total CO2 (22-28) mmol/L ABG O2 Saturation (95-98) % ABG Base Excess (-2.0-3.0) mmol/L ABG Hemoglobin (11.7-17.4) g/dL ABG Carboxyhemoglobin (0.5-1.5) % POC ABG HHb (Measured) (0.0-5.0) % ABG Methemoglobin (0.0-3.0) % Perez Test Hgb O2 Saturation (95.0-98.0) % Liter Flow FiO2 % Sodium (132-148) mmol/L Potassium (3.6-5.2) mmol/L Chloride (98-107) mmol/L Carbon Dioxide (22-30) mmol/L Anion Gap (10-20) BUN (7-17) mg/dL Creatinine (0.7-1.2) mg/dL Est GFR ( Amer) Est GFR (Non-Af Amer) POC Glucose (mg/dL) 245 H (65-110) mg/dL Random Glucose (65-105) mg/dL Calcium (8.6-10.4) mg/dl Phosphorus (2.5-4.5) mg/dL Magnesium (1.6-2.3) mg/dL Total Bilirubin (0.2-1.3) mg/dL AST (14-36) U/L ALT (9-52) U/L Alkaline Phosphatase (38-126) U/L Total Creatine Kinase (30-135) U/L CK-MB (Mass) (0.0-3.38) ng/mL Troponin I (0.00-0.120) ng/mL NT-Pro-B Natriuret Pep (0-900) pg/mL Total Protein (6.3-8.3) g/dL Albumin (3.5-5.0) g/dL Globulin (2.2-3.9) gm/dL Albumin/Globulin Ratio (1.0-2.1) Random Vancomycin ug/mL Laboratory Results - last 24 hr 07/16/18 07/16/18 07/16/18 00:00 03:40 03:40 WBC 15.9 H RBC 3.83 Hgb 9.7 L Hct 30.6 L MCV 80.1 L MCH 25.3 L MCHC 31.6 L RDW 16.8 H Plt Count 332 MPV 8.8 Neut % (Auto) 84.0 H Lymph % (Auto) 9.8 L [place] % (Auto) 5.4 Eos % (Auto) 0.6 Baso % (Auto) 0.2 Neut # (Auto) 13.3 H Lymph # (Auto) 1.6 [place] # (Auto) 0.9 H Eos # (Auto) 0.1 Baso # (Auto) 0.0 Neutrophils % (Manual) 84 H Lymphocytes % (Manual) 10 L Monocytes % (Manual) 6 Platelet Estimate Normal Hypochromasia (manual) Slight Poikilocytosis (manual Slight Anisocytosis (manual) Moderate Puncture Site pCO2 pO2 HCO3 ABG pH ABG Total CO2 ABG O2 Saturation ABG Base Excess ABG Hemoglobin ABG Carboxyhemoglobin POC ABG HHb (Measured) ABG Methemoglobin Perez Test Hgb O2 Saturation Liter Flow FiO2 Sodium Potassium Chloride Carbon Dioxide Anion Gap BUN Creatinine Est GFR ( Amer) Est GFR (Non-Af Amer) POC Glucose (mg/dL) 245 H Random Glucose Calcium Phosphorus Magnesium Total Bilirubin AST ALT Alkaline Phosphatase Total Creatine Kinase CK-MB (Mass) Troponin I NT-Pro-B Natriuret Pep Total Protein Albumin Globulin Albumin/Globulin Ratio Random Vancomycin 23.7 07/16/18 07/16/18 07/16/18 03:40 06:25 07:38 WBC RBC Hgb Hct MCV MCH MCHC RDW Plt Count MPV Neut % (Auto) Lymph % (Auto) Baca % (Auto) Eos % (Auto) Baso % (Auto) Neut # (Auto) Lymph # (Auto) [place] # (Auto) Eos # (Auto) Baso # (Auto) Neutrophils % (Manual) Lymphocytes % (Manual) Monocytes % (Manual) Platelet Estimate Hypochromasia (manual) Poikilocytosis (manual Anisocytosis (manual) Puncture Site pCO2 pO2 HCO3 ABG pH ABG Total CO2 ABG O2 Saturation ABG Base Excess ABG Hemoglobin ABG Carboxyhemoglobin POC ABG HHb (Measured) ABG Methemoglobin Perez Test Hgb O2 Saturation Liter Flow FiO2 Sodium 151 H Potassium 3.0 L Chloride 118 H Carbon Dioxide 25 Anion Gap 11 BUN 35 H Creatinine 1.0 Est GFR ( Amer) > 60 Est GFR (Non-Af Amer) 55 POC Glucose (mg/dL) 296 H Random Glucose 253 H Calcium 8.7 Phosphorus 1.9 L Magnesium 1.6 Total Bilirubin 0.5 AST 48 H D ALT 23 Alkaline Phosphatase 104 Total Creatine Kinase CK-MB (Mass) Troponin I 15.1000 H* NT-Pro-B Natriuret Pep 78947 H Total Protein 5.8 L Albumin 2.5 L Globulin 3.3 Albumin/Globulin Ratio 0.8 L Random Vancomycin 07/16/18 07/16/18 07/16/18 09:20 13:54 13:54 WBC 13.9 H RBC 3.52 L Hgb 9.0 L Hct 28.0 L MCV 79.5 L MCH 25.4 L MCHC 32.0 L RDW 16.8 H Plt Count 276 MPV 8.7 Neut % (Auto) 80.5 H Lymph % (Auto) 13.4 L [place] % (Auto) 4.8 Eos % (Auto) 0.7 Baso % (Auto) 0.6 Neut # (Auto) 11.2 H Lymph # (Auto) 1.9 [place] # (Auto) 0.7 Eos # (Auto) 0.1 Baso # (Auto) 0.1 Neutrophils % (Manual) Lymphocytes % (Manual) Monocytes % (Manual) Platelet Estimate Hypochromasia (manual) Poikilocytosis (manual Anisocytosis (manual) Puncture Site Rra pCO2 31 L pO2 30 L* HCO3 20.9 L ABG pH 7.41 ABG Total CO2 20.6 L ABG O2 Saturation 63.1 L ABG Base Excess -4.4 L ABG Hemoglobin 8.9 L ABG Carboxyhemoglobin 2.9 H POC ABG HHb (Measured) 35.2 H ABG Methemoglobin 1.6 Perez Test Na Hgb O2 Saturation 60.3 L Liter Flow 3.0 FiO2 32.0 Sodium 149 H Potassium 4.0 Chloride 117 H Carbon Dioxide 26 Anion Gap 11 BUN 25 H Creatinine 0.9 Est GFR ( Amer) > 60 Est GFR (Non-Af Amer) > 60 POC Glucose (mg/dL) Random Glucose 170 H Calcium 8.7 Phosphorus 3.2 Magnesium 2.4 H Total Bilirubin 0.5 AST 34 ALT 21 Alkaline Phosphatase 112 Total Creatine Kinase 102 CK-MB (Mass) 6.87 H Troponin I 12.5000 H* NT-Pro-B Natriuret Pep Total Protein 5.7 L Albumin 2.6 L Globulin 3.2 Albumin/Globulin Ratio 0.8 L Random Vancomycin 07/16/18 18:27 WBC RBC Hgb Hct MCV MCH MCHC RDW Plt Count MPV Neut % (Auto) Lymph % (Auto) [place] % (Auto) Eos % (Auto) Baso % (Auto) Neut # (Auto) Lymph # (Auto) [place] # (Auto) Eos # (Auto) Baso # (Auto) Neutrophils % (Manual) Lymphocytes % (Manual) Monocytes % (Manual) Platelet Estimate Hypochromasia (manual) Poikilocytosis (manual Anisocytosis (manual) Puncture Site pCO2 pO2 HCO3 ABG pH ABG Total CO2 ABG O2 Saturation ABG Base Excess ABG Hemoglobin ABG Carboxyhemoglobin POC ABG HHb (Measured) ABG Methemoglobin Perez Test Hgb O2 Saturation Liter Flow FiO2 Sodium Potassium Chloride Carbon Dioxide Anion Gap BUN Creatinine Est GFR ( Amer) Est GFR (Non-Af Amer) POC Glucose (mg/dL) Random Glucose Calcium Phosphorus Magnesium Total Bilirubin AST ALT Alkaline Phosphatase Total Creatine Kinase 89 CK-MB (Mass) Troponin I NT-Pro-B Natriuret Pep Total Protein Albumin Globulin Albumin/Globulin Ratio Random Vancomycin EKG/Cardiology Studies: Cardiology / EKG Studies 07/16/18 06:14 EKG [ELECTROCARDIOGRAM] Stat Comment: Mode Of Transportation: PORTABLE Reason For Exam: atrial tach Critical Care Progress Note - Nutrition Nutrition: Nutrition Category Date Time Status NPO Diet [DIET] Diets 07/14/18 Dinner Active Attending/Attestation - Attestation I have personally seen and examined this patient.: Yes I have fully participated in the care of the patient.: Yes I have reviewed all pertinent clinical information: Yes Notes (Text): 07/16/18 19:08 Today: July The Patient was seen and examined at the bedside, Medical records reviewed, and management issues were discussed and formulated with the house staff. I have reviewed all the relevant clinical, laboratory, hemodynamic, radiographic data and medications Events reviewed Pain issues, skin care, head of the bed elevation, glycemic control were addressed. Agree with above resident's assessment and treatment plans of care as transcribed in Dr. Sol's note. Critically ill patient with acute hypoxemic respiratory failure, Septic shock of vasopressors, elevated trop, Respiratory acidosis from acute pulmonary edema, altered mental status from Metabolic encephalopathy. Now with A-fib with RVR requiring cardiazem drip. Currently on Broad spectrum antibiotic coverage, Trend Trop, Cardiology and ID consult appreciated ASA, Statins Wean off FIO2 Wound care Full code Total critical care time 45 minutes
[2018-07-16 19:16] LABS: CK-MB 5.5 ng/mL (0.0-3.38); TROPONIN I 11.6 ng/mL (0.00-0.120)
[2018-07-16] MEDS: Rosuvastatin Calcium 2.5 mg Tab PO SCH ×2 (22:36→22:41)
[2018-07-17] MEDS: (Novolog) Insulin Aspart, Recombinant 100 u/ml 10 ml vial SC SCH ×4 (01:06→18:49)
[2018-07-17] MEDS ORDERED: (Novolog) Insulin Aspart, Recombinant 100 u/ml 10 ml vial SC SCH (01:13)
[2018-07-17 06:19] LABS: BASO % 0.1 % (0.0-2.0); EOS % 0.2 % (0.0-4.0); LYMPH # 1.8 K/uL (1.0-4.3); MEAN CELL VOLUME 79.4 fL (81.0-99.0); MEAN CORPUSCULAR HEMOGLOBIN 25.5 pg (27.0-31.0); MEAN CORPUSCULAR HGB CONC 32.1 g/dL (33.0-37.0); MEAN PLATELET VOLUME 9.5 fL (7.2-11.7); MONO % 7.2 % (0.0-10.0); NEUT # 10.9 K/uL (1.8-7.0); NEUT % 79.5 % (50.0-75.0); NRBC % 0.3 % (0.0-2.0); RBC 3.52 Mil/uL (3.80-5.20); RED CELL DISTRIBUTION WIDTH 16.9 % (11.5-14.5); WHITE BLOOD COUNT 13.7 K/uL (4.8-10.8)
[2018-07-17 06:49] LABS: ALB/GLOB RATIO 0.8 (1.0-2.1); ALBUMIN 2.6 g/dL (3.5-5.0); ALT/SGPT 23 U/L (9-52); AST/SGOT 27 U/L (14-36); BLOOD UREA NITROGEN 23 mg/dL (7-17); CALCIUM 8.7 mg/dl (8.6-10.4); CK-MB 3.92 ng/mL (0.0-3.38); GFR NON-AFRICAN AMERICAN > 60
--- NOTE | 2018-07-17 11:37 | PN ---
DATE: 07/17/2018 SUBJECTIVE: I saw her this morning at [facility]. Does have pain issues. She is easily arousable, more alert, talking better. Still not 100% mentally, but better than what she was when she came in. MEDICATIONS: She is on aspirin, ceftazidime, Crestor, Depakote, diltiazem IV, heparin, norepinephrine, NovoLog, vancomycin IV and vasopressin. PHYSICAL EXAMINATION: VITAL SIGNS: She has 98.7 temperature, 114/61 blood pressure, 92% oxygen saturation on 2 liters. HEENT: Atraumatic and normocephalic. She is alert, smiling, looking at me. Throat is moist. NECK: Supple. HEART: Regular rate. LUNGS: Decreased breath sounds, but clear. ABDOMEN: Soft. 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 Left leg, the foot is a little bit better too, not great. LABORATORY DATA: She has a 30.9 white count coming down, 9 hemoglobin, 28 hematocrit, 276 platelets as per yesterday's labs. Sodium 149, potassium 4, BUN is 25, creatinine is 0.9. GFR is greater than 60, that is better. Sugar is down to 170. Calcium is 8.7, phosphorus 3.2, magnesium 2.4. Total bili is 0.5, AST is 34, ALT is 31, alk phos 114. Troponins are 15 and 12 and 11.6. Most probably she had a cardiac event, urinary tract infection, yeast species. She is being seen by multiple doctors, atrial fibrillation, rapid ventricular response, on Cardizem IV. She has been seen by Infectious Disease. Chest x-ray was clear. ASSESSMENT AND PLAN: She had urinary tract infection in the morning and cellulitis, possible ischemia of the limbs. We will continue with aggressive treatment and care in the intensive care unit. We will check her labs tomorrow. Haja Pink DO
--- NOTE | 2018-07-17 12:09 | VASCLAB ---
Date of service: 07/16/2018 PROCEDURE: Right Lower Extremity Arterial Exam. HISTORY: left fem pop bypass. Patent? COMPARISON: None available. TECHNIQUE: Grayscale and duplex Doppler evaluation of the right common femoral, femoral, profunda femoral, popliteal, posterior tibial, anterior tibial and dorsalis pedis arteries was performed. Report prepared by NORMA Delarosa, RVT FINDINGS: RIGHT LOWER EXTREMITY: * Common Femoral Artery: Peak Systolic Velocity - 264: Doppler Waveform: Biphasic: Plaque description - Calcific * Profunda Femoral Artery: Peak Systolic Velocity - 411: Doppler Waveform: Biphasic.: Plaque description - Calcific * Femoral Artery o Proximal Segment: Peak Systolic Velocity - : Doppler Waveform: : Plaque description - o Middle Segment: Peak Systolic Velocity - : Doppler Waveform: : Plaque description - o Distal Segment: Peak Systolic Velocity - : Doppler Waveform: : Plaque description - * Popliteal Artery o Proximal Segment: Peak Systolic Velocity - 53: Doppler Waveform: Monophasic: Plaque description - Calcific o Middle Segment: Peak Systolic Velocity - 62: Doppler Waveform: Monophasic: Plaque description - Calcific o Distal Segment: Peak Systolic Velocity - 50: Doppler Waveform: Monophasic: Plaque description - Calcific * Posterior Tibial Artery: Peak Systolic Velocity - 26: Doppler Waveform: Monophasic: Plaque description - Calcific * Anterior Tibial Artery: Peak Systolic Velocity - 47: Doppler Waveform: Monophasic: Plaque description - Calcific * Dorsalis Pedis Artery: Peak Systolic Velocity - : Doppler Waveform: : Plaque description - OTHER FINDINGS: None. 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 50-75% stenosis of the left common femoral artery. Patent femoral to popliteal artery bypass graft. However, unable to image the distal anastomosis due to bandage covering the area.
--- NOTE | 2018-07-17 12:09 | VASCLAB ---
Date of service: 07/16/2018 PROCEDURE: Left Lower Extremity Venous Duplex Exam. HISTORY: Pain in limb. PRIORS: None. TECHNIQUE: Left common femoral, femoral, popliteal and posterior tibial, peroneal and great saphenous veins were evaluated. Flow was assessed with color Doppler, compressibility, assessment of phasic flow and augmentation response. Report prepared by NORMA Delarosa, RVT FINDINGS: LEFT: 1. Common Femoral Vein: 1.1. Compressibility - Fully compressible: Thrombus - None : Flow - Phasic: Augmentation -Normal: Reflux - None. 2. Femoral Vein: 2.1. Compressibility - Fully compressible: Thrombus - None: Flow - Phasic: Augmentation -Normal: Reflux - None. 3. Popliteal Vein: 3.1. Compressibility - Fully compressible: Thrombus - None: Flow - Phasic: Augmentation -Normal: Reflux - None. 4. Posterior Tibial Vein: 4.1. Compressibility - Fully compressible: Thrombus - None: Flow - Phasic: Augmentation -Normal: Reflux - None. 5. Peroneal Vein: 5.1. Compressibility - Fully compressible: Thrombus - None: Flow - Phasic: Augmentation -Normal: Reflux - None. 6. Great Saphenous Vein: 6.1. Compressibility - Fully compressible: Thrombus - None: Flow - Phasic: Augmentation - Normal: Reflux - None. OTHER FINDINGS: IMPRESSION: No evidence of deep or superficial vein thrombosis of the left lower extremity with excellent venous flow. Normal valve function noted of the left side. Normal venous flow noted in the right common femoral vein.
[2018-07-17] MEDS: Vancomycin 1 gm/NS 200 ml 1 GM/200 ML BAG IVPB SCH (14:34)
--- NOTE | 2018-07-17 15:49 | CP.CCUPN ---
<Durga Sol - Last Filed: 07/17/18 15:48> CCU Subjective - Physician Review Events Since Last Encounter (Free Text): 07/17/18 15:48 No acute events overnight Subjective (Free Text): 07/17/18 15:48 PGY1 Critical Care Progress Note For Dr. Ha Patient seen and evaluated at bedside. Patient alert but not able to communicate verbally and is altered. Patient's son was at bedside this morning. Per patient's son, the patient's baseline is mostly non-verbal. Patient has a hard time communicating anything other than generalized pain. Thus, 12 point ROS could not be obtained due to clinical condition. Critical Care Time Spent (in minutes): 35 CCU Objective - Vital Signs / Intake & Output Vital Signs (Last 4 hours): Vital Signs Temp Pulse Resp BP Pulse Ox 07/17/18 15:00 97 H 21 94 L 07/17/18 14:59 97 H 21 112/62 94 L 07/17/18 14:00 107 H 13 84 L 07/17/18 13:59 118/56 L 07/17/18 13:00 107 H 21 112/85 89 L 07/17/18 12:00 98.2 F 07/17/18 11:59 109 H 19 104/37 L 89 L Intake and Output (Last 8hrs): Intake & Output 07/17/18 07/17/18 07/17/18 06:59 14:59 22:59 Intake Total 114.2 660 Output Total 600 160 Balance -485.8 500 Weight 123 lb 4.8 oz Intake: IV 12.3 Intake, IV Amount 101.9 300 R IJ distal 100 Right Distal Port 1.9 Internal Jugular Right Medial Port 100 Internal Jugular Right Proximal Port 200 Internal Jugular Oral 360 Output: Urine 600 160 Urethral (Chand) 600 160 Other: # Bowel Movements 1 - Medications Active Medications: Active Medications Generic Name Dose Route Start Last Admin Trade Name Freq PRN Reason Stop Dose Admin Aspirin 81 mg 07/17/18 11:45 07/17/18 12:40 Ecotrin PO 81 mg DAILY XAVIER Administration Divalproex Sodium 250 mg 07/14/18 22:00 07/16/18 22:58 Depakote Er PO Not Given HS XAVIER Heparin Sodium (Porcine) 5,000 units 07/14/18 22:30 07/17/18 14:34 Heparin SC 5,000 units Q8 XAVIRE Administration Vancomycin/Sodium Chloride 1 gm in 200 mls @ 133.333 mls/hr 07/16/18 14:30 07/17/18 14:34 Vancomycin 1 Gm/Ns 200 Ml IVPB 07/20/18 02:31 133.333 mls/hr Q24H XAVIER Administration Protocol Ceftazidime/Avibactam 1.25 gm/ 100 mls @ 50 mls/hr 07/16/18 00:00 07/17/18 08:14 Sodium Chloride IV 50 mls/hr Q8H XAVIER Administration Protocol Vasopressin 40 units/ Dextrose 42 mls @ 0.63 mls/hr 07/16/18 06:15 07/16/18 22:30 IV 0 units/min .Q24H XAVIER 0 mls/hr Titration Protocol 0.01 UNITS/MIN Diltiazem HCl 125 mg/ Dextrose 125 mls @ 5 mls/hr 07/16/18 06:30 07/16/18 11:00 IV 0 mg/hr .Q24H XAVIER 0 mls/hr Titration Protocol 5 MG/HR Norepinephrine Bitartrate 8 mg 250 mls @ 7.5 mls/hr 07/16/18 10:59 07/16/18 23:30 / Sodium Chloride IV 0 mcg/min .Q24H PRN 0 mls/hr TITRATE PER MD ORDER Titration Protocol 4 MCG/MIN Insulin Aspart 0 unit 07/17/18 06:00 07/17/18 12:40 Novolog SC 6 u Q6H XAVIER Administration Protocol Rosuvastatin Calcium 2.5 mg 07/16/18 22:00 07/16/18 22:41 Crestor PO Not Given HS [facility] - Patient Studies Lab Studies: Microbiology Studies 07/16/18 13:30 Gram Stain - Final Leg - Right Wound Culture - Final Corynebacterium Species 07/16/18 13:30 Gram Stain - Final Buttock Wound Culture - Preliminary Gram Positive Cocci 07/14/18 13:29 Blood Culture - Preliminary Blood NO GROWTH AFTER 3 DAYS 07/14/18 13:29 Blood Culture - Preliminary Blood NO GROWTH AFTER 3 DAYS 07/15/18 08:26 Gram Stain - Final Buttock Wound Culture - Preliminary Gram Positive Cocci Corynebacterium Species 07/15/18 07:22 Gram Stain - Final Leg - Right Wound Culture - Final Corynebacterium Species 07/15/18 07:22 Gram Stain - Final Vaginal Wound Culture - Preliminary Yeast Species 07/15/18 07:22 Gram Stain - Final Other: Please Indicate Wound Culture - Preliminary Gram Negative Alonzo Corynebacterium Species 07/15/18 07:22 MRSA Culture (Admit) - Final Naris MRSA NOT DETECTED 07/14/18 20:35 Urine Culture - Final Urine,Catheterized Yeast Species 07/14/18 17:17 Urine Culture - Final Urine,Clean Catch Yeast Species Lab Studies 07/17/18 07/17/18 07/17/18 Range/Units 12:32 11:31 06:12 WBC (4.8-10.8) K/uL RBC (3.80-5.20) Mil/uL Hgb (11.0-16.0) g/dL Hct (34.0-47.0) % MCV (81.0-99.0) fL MCH (27.0-31.0) pg MCHC (33.0-37.0) g/dL RDW (11.5-14.5) % Plt Count (130-400) K/uL MPV (7.2-11.7) fL Neut % (Auto) (50.0-75.0) % Lymph % (Auto) (20.0-40.0) % [place] % (Auto) (0.0-10.0) % Eos % (Auto) (0.0-4.0) % Baso % (Auto) (0.0-2.0) % Neut # (Auto) (1.8-7.0) K/uL Lymph # (Auto) (1.0-4.3) K/uL [place] # (Auto) (0.0-0.8) K/uL Eos # (Auto) (0.0-0.7) K/uL Baso # (Auto) (0.0-0.2) K/uL Sodium 150 H (132-148) mmol/L Potassium 2.9 L (3.6-5.2) mmol/L Chloride 116 H (98-107) mmol/L Carbon Dioxide 26 (22-30) mmol/L Anion Gap 11 (10-20) BUN 23 H (7-17) mg/dL Creatinine 0.8 (0.7-1.2) mg/dL Est GFR ( Amer) > 60 Est GFR (Non-Af Amer) > 60 POC Glucose (mg/dL) 282 H (65-110) mg/dL Random Glucose 78 (65-105) mg/dL Hemoglobin A1c 9.0 H (4.2-6.5) % Calcium 8.7 (8.6-10.4) mg/dl Phosphorus 2.5 (2.5-4.5) mg/dL Magnesium 2.3 (1.6-2.3) mg/dL Total Bilirubin 0.6 (0.2-1.3) mg/dL AST 27 (14-36) U/L ALT 23 (9-52) U/L Alkaline Phosphatase 120 (38-126) U/L Total Creatine Kinase 61 (30-135) U/L CK-MB (Mass) 3.92 H (0.0-3.38) ng/mL Troponin I 9.2300 H* (0.00-0.120) ng/mL Total Protein 5.9 L (6.3-8.3) g/dL Albumin 2.6 L (3.5-5.0) g/dL Globulin 3.3 (2.2-3.9) gm/dL Albumin/Globulin Ratio 0.8 L (1.0-2.1) 07/17/18 07/17/18 07/17/18 Range/Units 06:12 05:09 00:13 WBC 13.7 H (4.8-10.8) K/uL RBC 3.52 L (3.80-5.20) Mil/uL Hgb 9.0 L (11.0-16.0) g/dL Hct 28.0 L (34.0-47.0) % MCV 79.4 L (81.0-99.0) fL MCH 25.5 L (27.0-31.0) pg MCHC 32.1 L (33.0-37.0) g/dL RDW 16.9 H (11.5-14.5) % Plt Count 213 (130-400) K/uL MPV 9.5 (7.2-11.7) fL Neut % (Auto) 79.5 H (50.0-75.0) % Lymph % (Auto) 13.0 L (20.0-40.0) % [place] % (Auto) 7.2 (0.0-10.0) % Eos % (Auto) 0.2 (0.0-4.0) % Baso % (Auto) 0.1 (0.0-2.0) % Neut # (Auto) 10.9 H (1.8-7.0) K/uL Lymph # (Auto) 1.8 (1.0-4.3) K/uL [place] # (Auto) 1.0 H (0.0-0.8) K/uL Eos # (Auto) 0.0 (0.0-0.7) K/uL Baso # (Auto) 0.0 (0.0-0.2) K/uL Sodium (132-148) mmol/L Potassium (3.6-5.2) mmol/L Chloride (98-107) mmol/L Carbon Dioxide (22-30) mmol/L Anion Gap (10-20) BUN (7-17) mg/dL Creatinine (0.7-1.2) mg/dL Est GFR ( Amer) Est GFR (Non-Af Amer) POC Glucose (mg/dL) 99 310 H (65-110) mg/dL Random Glucose (65-105) mg/dL Hemoglobin A1c (4.2-6.5) % Calcium (8.6-10.4) mg/dl Phosphorus (2.5-4.5) mg/dL Magnesium (1.6-2.3) mg/dL Total Bilirubin (0.2-1.3) mg/dL AST (14-36) U/L ALT (9-52) U/L Alkaline Phosphatase (38-126) U/L Total Creatine Kinase (30-135) U/L CK-MB (Mass) (0.0-3.38) ng/mL Troponin I (0.00-0.120) ng/mL Total Protein (6.3-8.3) g/dL Albumin (3.5-5.0) g/dL Globulin (2.2-3.9) gm/dL Albumin/Globulin Ratio (1.0-2.1) 11/15/18 11/15/18 11/15/18 Range/Units 18:27 17:44 11:16 WBC (4.8-10.8) K/uL RBC (3.80-5.20) Mil/uL Hgb (11.0-16.0) g/dL Hct (34.0-47.0) % MCV (81.0-99.0) fL MCH (27.0-31.0) pg MCHC (33.0-37.0) g/dL RDW (11.5-14.5) % Plt Count (130-400) K/uL MPV (7.2-11.7) fL Neut % (Auto) (50.0-75.0) % Lymph % (Auto) (20.0-40.0) % [place] % (Auto) (0.0-10.0) % Eos % (Auto) (0.0-4.0) % Baso % (Auto) (0.0-2.0) % Neut # (Auto) (1.8-7.0) K/uL Lymph # (Auto) (1.0-4.3) K/uL [place] # (Auto) (0.0-0.8) K/uL Eos # (Auto) (0.0-0.7) K/uL Baso # (Auto) (0.0-0.2) K/uL Sodium (132-148) mmol/L Potassium (3.6-5.2) mmol/L Chloride (98-107) mmol/L Carbon Dioxide (22-30) mmol/L Anion Gap (10-20) BUN (7-17) mg/dL Creatinine (0.7-1.2) mg/dL Est GFR ( Amer) Est GFR (Non-Af Amer) POC Glucose (mg/dL) 152 H 215 H (65-110) mg/dL Random Glucose (65-105) mg/dL Hemoglobin A1c (4.2-6.5) % Calcium (8.6-10.4) mg/dl Phosphorus (2.5-4.5) mg/dL Magnesium (1.6-2.3) mg/dL Total Bilirubin (0.2-1.3) mg/dL AST (14-36) U/L ALT (9-52) U/L Alkaline Phosphatase (38-126) U/L Total Creatine Kinase 89 (30-135) U/L CK-MB (Mass) 5.50 H (0.0-3.38) ng/mL Troponin I 11.6000 H* (0.00-0.120) ng/mL Total Protein (6.3-8.3) g/dL Albumin (3.5-5.0) g/dL Globulin (2.2-3.9) gm/dL Albumin/Globulin Ratio (1.0-2.1) Laboratory Results - last 24 hr 07/16/18 07/16/18 07/16/18 11:16 17:44 18:27 WBC RBC Hgb Hct MCV MCH MCHC RDW Plt Count MPV Neut % (Auto) Lymph % (Auto) [place] % (Auto) Eos % (Auto) Baso % (Auto) Neut # (Auto) Lymph # (Auto) [place] # (Auto) Eos # (Auto) Baso # (Auto) Sodium Potassium Chloride Carbon Dioxide Anion Gap BUN Creatinine Est GFR ( Amer) Est GFR (Non-Af Amer) POC Glucose (mg/dL) 215 H 152 H Random Glucose Hemoglobin A1c Calcium Phosphorus Magnesium Total Bilirubin AST ALT Alkaline Phosphatase Total Creatine Kinase 89 CK-MB (Mass) 5.50 H Troponin I 11.6000 H* Total Protein Albumin Globulin Albumin/Globulin Ratio 07/17/18 07/17/18 07/17/18 00:13 05:09 06:12 WBC 13.7 H RBC 3.52 L Hgb 9.0 L Hct 28.0 L MCV 79.4 L MCH 25.5 L MCHC 32.1 L RDW 16.9 H Plt Count 213 MPV 9.5 Neut % (Auto) 79.5 H Lymph % (Auto) 13.0 L [place] % (Auto) 7.2 Eos % (Auto) 0.2 Baso % (Auto) 0.1 Neut # (Auto) 10.9 H Lymph # (Auto) 1.8 [place] # (Auto) 1.0 H Eos # (Auto) 0.0 Baso # (Auto) 0.0 Sodium Potassium Chloride Carbon Dioxide Anion Gap BUN Creatinine Est GFR ( Amer) Est GFR (Non-Af Amer) POC Glucose (mg/dL) 310 H 99 Random Glucose Hemoglobin A1c Calcium Phosphorus Magnesium Total Bilirubin AST ALT Alkaline Phosphatase Total Creatine Kinase CK-MB (Mass) Troponin I Total Protein Albumin Globulin Albumin/Globulin Ratio 07/17/18 07/17/18 07/17/18 06:12 11:31 12:32 WBC RBC Hgb Hct MCV MCH MCHC RDW Plt Count MPV Neut % (Auto) Lymph % (Auto) [place] % (Auto) Eos % (Auto) Baso % (Auto) Neut # (Auto) Lymph # (Auto) [place] # (Auto) Eos # (Auto) Baso # (Auto) Sodium 150 H Potassium 2.9 L Chloride 116 H Carbon Dioxide 26 Anion Gap 11 BUN 23 H Creatinine 0.8 Est GFR ( Amer) > 60 Est GFR (Non-Af Amer) > 60 POC Glucose (mg/dL) 282 H Random Glucose 78 Hemoglobin A1c 9.0 H Calcium 8.7 Phosphorus 2.5 Magnesium 2.3 Total Bilirubin 0.6 AST 27 ALT 23 Alkaline Phosphatase 120 Total Creatine Kinase 61 CK-MB (Mass) 3.92 H Troponin I 9.2300 H* Total Protein 5.9 L Albumin 2.6 L Globulin 3.3 Albumin/Globulin Ratio 0.8 L Fingerstick Blood Sugar Results: 282 Critical Care Progress Note - Nutrition Nutrition: Nutrition Category Date Time Status Dysphagia/Modified Consistency Diet [DIET] Diets 07/17/18 Breakfast Active <Ernie Ha - Last Filed: 07/17/18 16:35> CCU Objective - Vital Signs / Intake & Output Vital Signs (Last 4 hours): Vital Signs Pulse Resp BP Pulse Ox 07/17/18 15:00 97 H 21 94 L 07/17/18 14:59 97 H 21 112/62 94 L 07/17/18 14:00 107 H 13 84 L 07/17/18 13:59 118/56 L 07/17/18 13:00 107 H 21 112/85 89 L Intake and Output (Last 8hrs): Intake & Output 07/17/18 07/17/18 07/17/18 06:59 14:59 22:59 Intake Total 114.2 793 67 Output Total 600 160 Balance -485.8 633 67 Weight 123 lb 4.8 oz Intake: IV 12.3 Intake, IV Amount 101.9 433 67 R IJ distal 100 133 67 Right Distal Port 1.9 Internal Jugular Right Medial Port 100 Internal Jugular Right Proximal Port 200 Internal Jugular Oral 360 0 Output: Urine 600 160 Urethral (Chand) 600 160 Other: # Bowel Movements 1 - Medications Active Medications: Active Medications Generic Name Dose Route Start Last Admin Trade Name Freq PRN Reason Stop Dose Admin Aspirin 81 mg 07/17/18 11:45 07/17/18 12:40 Ecotrin PO 81 mg DAILY XAVIER Administration Divalproex Sodium 250 mg 07/14/18 22:00 07/16/18 22:58 Depakote Er PO Not Given HS XAVIER Heparin Sodium (Porcine) 5,000 units 07/14/18 22:30 07/17/18 14:34 Heparin SC 5,000 units Q8 XAVIER Administration Vancomycin/Sodium Chloride 1 gm in 200 mls @ 133.333 mls/hr 07/16/18 14:30 07/17/18 14:34 Vancomycin 1 Gm/Ns 200 Ml IVPB 07/20/18 02:31 133.333 mls/hr Q24H XAVIER Administration Protocol Ceftazidime/Avibactam 1.25 gm/ 100 mls @ 50 mls/hr 07/16/18 00:00 07/17/18 08:14 Sodium Chloride IV 50 mls/hr Q8H XAVIER Administration Protocol Vasopressin 40 units/ Dextrose 42 mls @ 0.63 mls/hr 07/16/18 06:15 07/16/18 22:30 IV 0 units/min .Q24H XAVIER 0 mls/hr Titration Protocol 0.01 UNITS/MIN Diltiazem HCl 125 mg/ Dextrose 125 mls @ 5 mls/hr 07/16/18 06:30 07/16/18 11:00 IV 0 mg/hr .Q24H XAVIER 0 mls/hr Titration Protocol 5 MG/HR Norepinephrine Bitartrate 8 mg 250 mls @ 7.5 mls/hr 07/16/18 10:59 07/16/18 23:30 / Sodium Chloride IV 0 mcg/min .Q24H PRN 0 mls/hr TITRATE PER MD ORDER Titration Protocol 4 MCG/MIN Insulin Aspart 0 unit 07/17/18 06:00 07/17/18 12:40 Novolog SC 6 u Q6H XAVIER Administration Protocol Rosuvastatin Calcium 2.5 mg 07/16/18 22:00 07/16/18 22:41 Crestor PO Not Given HS X[facility]IER - Patient Studies Lab Studies: Microbiology Studies 07/16/18 13:30 Gram Stain - Final Leg - Right Wound Culture - Final Corynebacterium Species 07/16/18 13:30 Gram Stain - Final Buttock Wound Culture - Preliminary Gram Positive Cocci 07/14/18 13:29 Blood Culture - Preliminary Blood NO GROWTH AFTER 3 DAYS 07/14/18 13:29 Blood Culture - Preliminary Blood NO GROWTH AFTER 3 DAYS 07/15/18 08:26 Gram Stain - Final Buttock Wound Culture - Preliminary Gram Positive Cocci Corynebacterium Species 07/15/18 07:22 Gram Stain - Final Leg - Right Wound Culture - Final Corynebacterium Species 07/15/18 07:22 Gram Stain - Final Vaginal Wound Culture - Preliminary Yeast Species 07/15/18 07:22 Gram Stain - Final Other: Please Indicate Wound Culture - Preliminary Gram Negative Alonzo Corynebacterium Species 07/15/18 07:22 MRSA Culture (Admit) - Final Naris MRSA NOT DETECTED 07/14/18 20:35 Urine Culture - Final Urine,Catheterized Yeast Species 07/14/18 17:17 Urine Culture - Final Urine,Clean Catch Yeast Species Lab Studies 07/17/18 07/17/18 07/17/18 Range/Units 12:32 11:31 06:12 WBC (4.8-10.8) K/uL RBC (3.80-5.20) Mil/uL Hgb (11.0-16.0) g/dL Hct (34.0-47.0) % MCV (81.0-99.0) fL MCH (27.0-31.0) pg MCHC (33.0-37.0) g/dL RDW (11.5-14.5) % Plt Count (130-400) K/uL MPV (7.2-11.7) fL Neut % (Auto) (50.0-75.0) % Lymph % (Auto) (20.0-40.0) % [place] % (Auto) (0.0-10.0) % Eos % (Auto) (0.0-4.0) % Baso % (Auto) (0.0-2.0) % Neut # (Auto) (1.8-7.0) K/uL Lymph # (Auto) (1.0-4.3) K/uL [place] # (Auto) (0.0-0.8) K/uL Eos # (Auto) (0.0-0.7) K/uL Baso # (Auto) (0.0-0.2) K/uL Sodium 150 H (132-148) mmol/L Potassium 2.9 L (3.6-5.2) mmol/L Chloride 116 H (98-107) mmol/L Carbon Dioxide 26 (22-30) mmol/L Anion Gap 11 (10-20) BUN 23 H (7-17) mg/dL Creatinine 0.8 (0.7-1.2) mg/dL Est GFR ( Amer) > 60 Est GFR (Non-Af Amer) > 60 POC Glucose (mg/dL) 282 H (65-110) mg/dL Random Glucose 78 (65-105) mg/dL Hemoglobin A1c 9.0 H (4.2-6.5) % Calcium 8.7 (8.6-10.4) mg/dl Phosphorus 2.5 (2.5-4.5) mg/dL Magnesium 2.3 (1.6-2.3) mg/dL Total Bilirubin 0.6 (0.2-1.3) mg/dL AST 27 (14-36) U/L ALT 23 (9-52) U/L Alkaline Phosphatase 120 (38-126) U/L Total Creatine Kinase 61 (30-135) U/L CK-MB (Mass) 3.92 H (0.0-3.38) ng/mL Troponin I 9.2300 H* (0.00-0.120) ng/mL Total Protein 5.9 L (6.3-8.3) g/dL Albumin 2.6 L (3.5-5.0) g/dL Globulin 3.3 (2.2-3.9) gm/dL Albumin/Globulin Ratio 0.8 L (1.0-2.1) 07/17/18 07/17/18 07/17/18 Range/Units 06:12 05:09 00:13 WBC 13.7 H (4.8-10.8) K/uL RBC 3.52 L (3.80-5.20) Mil/uL Hgb 9.0 L (11.0-16.0) g/dL Hct 28.0 L (34.0-47.0) % MCV 79.4 L (81.0-99.0) fL MCH 25.5 L (27.0-31.0) pg MCHC 32.1 L (33.0-37.0) g/dL RDW 16.9 H (11.5-14.5) % Plt Count 213 (130-400) K/uL MPV 9.5 (7.2-11.7) fL Neut % (Auto) 79.5 H (50.0-75.0) % Lymph % (Auto) 13.0 L (20.0-40.0) % [place] % (Auto) 7.2 (0.0-10.0) % Eos % (Auto) 0.2 (0.0-4.0) % Baso % (Auto) 0.1 (0.0-2.0) % Neut # (Auto) 10.9 H (1.8-7.0) K/uL Lymph # (Auto) 1.8 (1.0-4.3) K/uL [place] # (Auto) 1.0 H (0.0-0.8) K/uL Eos # (Auto) 0.0 (0.0-0.7) K/uL Baso # (Auto) 0.0 (0.0-0.2) K/uL Sodium (132-148) mmol/L Potassium (3.6-5.2) mmol/L Chloride (98-107) mmol/L Carbon Dioxide (22-30) mmol/L Anion Gap (10-20) BUN (7-17) mg/dL Creatinine (0.7-1.2) mg/dL Est GFR ( Amer) Est GFR (Non-Af Amer) POC Glucose (mg/dL) 99 310 H (65-110) mg/dL Random Glucose (65-105) mg/dL Hemoglobin A1c (4.2-6.5) % Calcium (8.6-10.4) mg/dl Phosphorus (2.5-4.5) mg/dL Magnesium (1.6-2.3) mg/dL Total Bilirubin (0.2-1.3) mg/dL AST (14-36) U/L ALT (9-52) U/L Alkaline Phosphatase (38-126) U/L Total Creatine Kinase (30-135) U/L CK-MB (Mass) (0.0-3.38) ng/mL Troponin I (0.00-0.120) ng/mL Total Protein (6.3-8.3) g/dL Albumin (3.5-5.0) g/dL Globulin (2.2-3.9) gm/dL Albumin/Globulin Ratio (1.0-2.1) 07/16/18 07/16/18 07/16/18 Range/Units 18:27 17:44 11:16 WBC (4.8-10.8) K/uL RBC (3.80-5.20) Mil/uL Hgb (11.0-16.0) g/dL Hct (34.0-47.0) % MCV (81.0-99.0) fL MCH (27.0-31.0) pg MCHC (33.0-37.0) g/dL RDW (11.5-14.5) % Plt Count (130-400) K/uL MPV (7.2-11.7) fL Neut % (Auto) (50.0-75.0) % Lymph % (Auto) (20.0-40.0) % [place] % (Auto) (0.0-10.0) % Eos % (Auto) (0.0-4.0) % Baso % (Auto) (0.0-2.0) % Neut # (Auto) (1.8-7.0) K/uL Lymph # (Auto) (1.0-4.3) K/uL [place] # (Auto) (0.0-0.8) K/uL Eos # (Auto) (0.0-0.7) K/uL Baso # (Auto) (0.0-0.2) K/uL Sodium (132-148) mmol/L Potassium (3.6-5.2) mmol/L Chloride (98-107) mmol/L Carbon Dioxide (22-30) mmol/L Anion Gap (10-20) BUN (7-17) mg/dL Creatinine (0.7-1.2) mg/dL Est GFR ( Amer) Est GFR (Non-Af Amer) POC Glucose (mg/dL) 152 H 215 H (65-110) mg/dL Random Glucose (65-105) mg/dL Hemoglobin A1c (4.2-6.5) % Calcium (8.6-10.4) mg/dl Phosphorus (2.5-4.5) mg/dL Magnesium (1.6-2.3) mg/dL Total Bilirubin (0.2-1.3) mg/dL AST (14-36) U/L ALT (9-52) U/L Alkaline Phosphatase (38-126) U/L Total Creatine Kinase 89 (30-135) U/L CK-MB (Mass) 5.50 H (0.0-3.38) ng/mL Troponin I 11.6000 H* (0.00-0.120) ng/mL Total Protein (6.3-8.3) g/dL Albumin (3.5-5.0) g/dL Globulin (2.2-3.9) gm/dL Albumin/Globulin Ratio (1.0-2.1) Laboratory Results - last 24 hr 07/16/18 07/16/18 07/16/18 11:16 17:44 18:27 WBC RBC Hgb Hct MCV MCH MCHC RDW Plt Count MPV Neut % (Auto) Lymph % (Auto) [place] % (Auto) Eos % (Auto) Baso % (Auto) Neut # (Auto) Lymph # (Auto) [place] # (Auto) Eos # (Auto) Baso # (Auto) Sodium Potassium Chloride Carbon Dioxide Anion Gap BUN Creatinine Est GFR ( Amer) Est GFR (Non-Af Amer) POC Glucose (mg/dL) 215 H 152 H Random Glucose Hemoglobin A1c Calcium Phosphorus Magnesium Total Bilirubin AST ALT Alkaline Phosphatase Total Creatine Kinase 89 CK-MB (Mass) 5.50 H Troponin I 11.6000 H* Total Protein Albumin Globulin Albumin/Globulin Ratio 07/17/18 07/17/18 07/17/18 00:13 05:09 06:12 WBC 13.7 H RBC 3.52 L Hgb 9.0 L Hct 28.0 L MCV 79.4 L MCH 25.5 L MCHC 32.1 L RDW 16.9 H Plt Count 213 MPV 9.5 Neut % (Auto) 79.5 H Lymph % (Auto) 13.0 L [place] % (Auto) 7.2 Eos % (Auto) 0.2 Baso % (Auto) 0.1 Neut # (Auto) 10.9 H Lymph # (Auto) 1.8 [place] # (Auto) 1.0 H Eos # (Auto) 0.0 Baso # (Auto) 0.0 Sodium Potassium Chloride Carbon Dioxide Anion Gap BUN Creatinine Est GFR ( Amer) Est GFR (Non-Af Amer) POC Glucose (mg/dL) 310 H 99 Random Glucose Hemoglobin A1c Calcium Phosphorus Magnesium Total Bilirubin AST ALT Alkaline Phosphatase Total Creatine Kinase CK-MB (Mass) Troponin I Total Protein Albumin Globulin Albumin/Globulin Ratio 07/17/18 07/17/18 07/17/18 06:12 11:31 12:32 WBC RBC Hgb Hct MCV MCH MCHC RDW Plt Count MPV Neut % (Auto) Lymph % (Auto) [place] % (Auto) Eos % (Auto) Baso % (Auto) Neut # (Auto) Lymph # (Auto) [place] # (Auto) Eos # (Auto) Baso # (Auto) Sodium 150 H Potassium 2.9 L Chloride 116 H Carbon Dioxide 26 Anion Gap 11 BUN 23 H Creatinine 0.8 Est GFR ( Amer) > 60 Est GFR (Non-Af Amer) > 60 POC Glucose (mg/dL) 282 H Random Glucose 78 Hemoglobin A1c 9.0 H Calcium 8.7 Phosphorus 2.5 Magnesium 2.3 Total Bilirubin 0.6 AST 27 ALT 23 Alkaline Phosphatase 120 Total Creatine Kinase 61 CK-MB (Mass) 3.92 H Troponin I 9.2300 H* Total Protein 5.9 L Albumin 2.6 L Globulin 3.3 Albumin/Globulin Ratio 0.8 L Critical Care Progress Note - Nutrition Nutrition: Nutrition Category Date Time Status Dysphagia/Modified Consistency Diet [DIET] Diets 07/17/18 Breakfast Active Assessment/Plan (1) Septic shock Current Visit: Yes Status: Acute Attending/Attestation - Attestation I have personally seen and examined this patient.: Yes I have fully participated in the care of the patient.: Yes I have reviewed all pertinent clinical information: Yes Notes (Text): 07/17/18 16:03 I have seen and examined the patient. Medical records, lab studies, and imaging were reviewed by me and a management plan was formulated on multidisciplinary rounds with resident Dr. Sol. I agree with their documented assessment and plan. Spoke with son about goals of care. The patient has been recurrently admitted for sepsis, with multiple sources (sacral ulcers, uti, pneumonia). He has agreed to DNR/DNI. She has improved from her current sepsis, but still not oriented to place or time. Most likely underlying dementia which is getting worse with recurrent septic episodes. The son is considering Hospice care. Will consult palliative care consult. Patient ready for transfer to LTAC. Critical Care Time 35 minutes. Multi-disciplinary rounds were performed with house staff, nursing, speech therapy, respiratory therapy, pharmacy and nutrition with integrated input from the primary team/attending and other consulting services. The documented time is cumulative and includes review of patient data/exams/labs/chart review and examination of the patient on rounds and throughout the day; time is exclusive of any procedures or teaching time.
[2018-07-17] MEDS: Cefepime IV 1 gm in Dextrose 1 GM/50 ML BAG IVPB SCH (16:53)
--- NOTE | 2018-07-17 18:28 | CP.PCM.PN ---
Subjective - Date & Time of Evaluation Date of Evaluation: 07/17/18 Time of Evaluation: 09:00 - Subjective Subjective: weak lethargic bedridden NAD IV rx in progress Objective - Vital Signs/Intake and Output Vital Signs (last 24 hours): Temp Pulse Resp BP Pulse Ox 99.1 F 96 H 19 122/65 94 L 07/17/18 16:00 07/17/18 17:00 07/17/18 17:00 07/17/18 16:59 07/17/18 17:00 Intake and Output: 07/17/18 07/17/18 06:59 18:59 Intake Total 154.63 910 Output Total 1025 160 Balance -870.37 750 - Medications Medications: Current Medications Aspirin (Ecotrin) 81 mg PO DAILY [facility] Last Admin: 07/17/18 12:40 Dose: 81 mg Divalproex Sodium (Depakote Er) 250 mg PO HS [facility] Last Admin: 07/16/18 22:58 Dose: Not Given Heparin Sodium (Porcine) (Heparin) 5,000 units SC Q8 [facility] Last Admin: 07/17/18 14:34 Dose: 5,000 units Vancomycin/Sodium Chloride (Vancomycin 1 Gm/Ns 200 Ml) 1 gm in 200 mls @ 133.333 mls/hr IVPB Q24H [facility]; Protocol Stop: 07/20/18 02:31 Last Admin: 07/17/18 14:34 Dose: 133.333 mls/hr Vasopressin 40 units/ Dextrose 42 mls @ 0.63 mls/hr IV .Q24H [facility]; Protocol Last Titration: 07/16/18 22:30 Dose: 0 units/min, 0 mls/hr Diltiazem HCl 125 mg/ Dextrose 125 mls @ 5 mls/hr IV .Q24H [facility]; Protocol Last Titration: 07/16/18 11:00 Dose: 0 mg/hr, 0 mls/hr Norepinephrine Bitartrate 8 mg (/ Sodium Chloride) 250 mls @ 7.5 mls/hr IV .Q24H PRN; Protocol PRN Reason: TITRATE PER MD ORDER Last Titration: 07/16/18 23:30 Dose: 0 mcg/min, 0 mls/hr Cefepime HCl (Maxipime Iv 1 Gm Premix) 1 gm in 50 mls @ 100 mls/hr IVPB Q24H [facility]; Protocol Last Admin: 07/17/18 16:53 Dose: 100 mls/hr Insulin Aspart (Novolog) 0 unit SC Q6H [facility]; Protocol Last Admin: 07/17/18 12:40 Dose: 6 u Rosuvastatin Calcium (Crestor) 2.5 mg PO HS [facility] Last Admin: 07/16/18 22:41 Dose: Not Given - Labs Labs: 07/17/18 06:12 07/17/18 06:12 PT 15.6 SECONDS (9.7-12.2) H 07/14/18 13:15 INR 1.4 07/14/18 13:15 APTT 31 SECONDS (21-34) 07/14/18 13:15 - Constitutional Appears: Non-toxic, Confused, Cachectic, Chronically Ill - Head Exam Head Exam: NORMOCEPHALIC - Eye Exam Eye Exam: absent: Scleral icterus - ENT Exam ENT Exam: Mucous Membranes Dry - Neck Exam Neck Exam: absent: Thyromegaly - Respiratory Exam Respiratory Exam: Decreased Breath Sounds, Prolonged Expiratory Phase, Rhonchi - Cardiovascular Exam Cardiovascular Exam: REGULAR RHYTHM, +S1, +S2 - GI/Abdominal Exam GI & Abdominal Exam: Distended, Soft. absent: Tenderness - Rectal Exam Rectal Exam: Deferred - Exam Exam: NORMAL INSPECTION - Extremities Exam Extremities Exam: Pedal Edema Additional comments: right BKA + left foot ischemic - Back Exam Back Exam: absent: CVA tenderness (L), CVA tenderness (R) - Neurological Exam Neurological Exam: Altered - Psychiatric Exam Psychiatric exam: Depressed - Skin Skin Exam: Dry Assessment and Plan (1) Cellulitis Status: Acute (2) Septic shock Status: Acute (3) TAMEKA (acute kidney injury) Status: Acute (4) Acute respiratory failure with hypoxemia Status: Acute (5) Altered mental status Status: Acute (6) Bipolar disorder Status: Acute (7) CKD (chronic kidney disease) stage 3, GFR 30-59 ml/min Status: Acute (8) Cellulitis, leg Status: Acute - Assessment and Plan (Free Text) Assessment: corynebacterium/ gram neg from wounds- possibly normal skin porter urine c/s + yeast no MDRO's thus far Ok to d/c avycaz cont Vanco/ cefepime DNR in effect
[2018-07-17] MEDS: Rosuvastatin Calcium 2.5 mg Tab PO SCH (21:54)
--- NOTE | 2018-07-18 00:10 | CP.PCM.CON ---
History of Present Illness - History of Present Illness History of Present Illness: CC low bp HPI 72 year old female was recently discharged from [facility], then readmitted to [facility] with AMS, with what was believed to be recurrent septic episodes from UTI. Now presents with AMS, and hypotension Review of Systems - Review of Systems Systems not reviewed;Unavailable: Altered Mental Status - Constitutional Constitutional: Lethargy, Weakness - Cardiovascular Cardiovascular: absent: Chest Pain, Dyspnea on Exertion - Respiratory Respiratory: As Per HPI. absent: Wheezing - Gastrointestinal Gastrointestinal: absent: Abdominal Pain Past Patient History - Infectious Disease Hx of Infectious Diseases: None - Tetanus Immunizations Tetanus Immunization: Unknown - Past Medical History & Family History Past Medical History?: Yes - Past Social History Smoking Status: Former Smoker - CARDIAC Hx Cardiac Disorders: Yes Hx Congestive Heart Failure: Yes Hx Hypertension: Yes Hx Peripheral Vascular Disease: Yes - PULMONARY Hx Chronic Obstructive Pulmonary Disease (COPD): Yes - NEUROLOGICAL Hx Seizures: No - HEENT Hx HEENT Problems: Yes Hx Cataracts: Yes - RENAL Hx Chronic Kidney Disease: No - ENDOCRINE/METABOLIC Hx Diabetes Mellitus Type 2: Yes - HEMATOLOGICAL/ONCOLOGICAL Hx Human Immunodeficiency Virus (HIV): No - INTEGUMENTARY Hx Dermatological Problems: No Other/Comment: pvd - MUSCULOSKELETAL/RHEUMATOLOGICAL Hx Musculoskeletal Disorders: Yes Hx Falls: No Other/Comment: RIGHT BKA - GASTROINTESTINAL Hx Gastrointestinal Disorders: No - GENITOURINARY/GYNECOLOGICAL Hx Sexually Transmitted Disorders: No - PSYCHIATRIC Hx Anxiety: Yes Hx Bipolar Disorder: Yes Hx Depression: Yes Hx Substance Use: No - SURGICAL HISTORY Hx Mastectomy: No Hx Orthopedic Surgery: Yes - ANESTHESIA Hx Anesthesia: Yes Hx Anesthesia Reactions: No Hx Malignant Hyperthermia: No Meds Allergies/Adverse Reactions: Allergies Allergy/AdvReac Type Severity Reaction Status Date / Time Iodinated Contrast- Oral and Allergy ANAPHYLAXIS Verified 07/14/18 11:35 IV Dye Penicillins Allergy ANAPHYLAXIS Verified 07/14/18 11:35 aminothiol Allergy ANAPHYLAXIS Uncoded 05/31/18 20:30 - Medications Medications: Current Medications Aspirin (Ecotrin) 81 mg PO DAILY [facility] Last Admin: 07/17/18 12:40 Dose: 81 mg Divalproex Sodium (Depakote Er) 250 mg PO HS [facility] Last Admin: 07/17/18 21:54 Dose: 250 mg Vancomycin/Sodium Chloride (Vancomycin 1 Gm/Ns 200 Ml) 1 gm in 200 mls @ 133.333 mls/hr IVPB Q24H [facility]; Protocol Stop: 07/20/18 02:31 Last Admin: 07/17/18 14:34 Dose: 133.333 mls/hr Vasopressin 40 units/ Dextrose 42 mls @ 0.63 mls/hr IV .Q24H [facility]; Protocol Last Titration: 07/16/18 22:30 Dose: 0 units/min, 0 mls/hr Diltiazem HCl 125 mg/ Dextrose 125 mls @ 5 mls/hr IV .Q24H [facility]; Protocol Last Titration: 07/16/18 11:00 Dose: 0 mg/hr, 0 mls/hr Norepinephrine Bitartrate 8 mg (/ Sodium Chloride) 250 mls @ 7.5 mls/hr IV .Q24H PRN; Protocol PRN Reason: TITRATE PER MD ORDER Last Titration: 07/16/18 23:30 Dose: 0 mcg/min, 0 mls/hr Cefepime HCl (Maxipime Iv 1 Gm Premix) 1 gm in 50 mls @ 100 mls/hr IVPB Q24H [facility]; Protocol Last Admin: 07/17/18 16:53 Dose: 100 mls/hr Insulin Aspart (Novolog) 0 unit SC Q6H [facility]; Protocol Last Admin: 07/17/18 18:49 Dose: 4 u Rosuvastatin Calcium (Crestor) 2.5 mg PO HS [facility] Last Admin: 07/17/18 21:54 Dose: 2.5 mg Physical Exam - Constitutional Appears: Toxic, Chronically Ill - Head Exam Head Exam: NORMAL INSPECTION - Eye Exam Eye Exam: absent: Scleral icterus - ENT Exam ENT Exam: Mucous Membranes Moist - Neck Exam Neck exam: Positive for: Full Rom - Respiratory Exam Respiratory Exam: Decreased Breath Sounds - Cardiovascular Exam Cardiovascular Exam: Tachycardia - GI/Abdominal Exam GI & Abdominal Exam: Soft - Extremities Exam Extremities exam: Negative for: pedal edema Additional comments: s/p right BKA - Neurological Exam Neurological exam: Altered Results - Vital Signs Recent Vital Signs: Last Vital Signs Temp 99.1 F 07/17/18 20:00 Pulse 94 H 07/17/18 22:00 Resp 20 07/17/18 22:00 BP 117/72 07/17/18 22:59 Pulse Ox 92 L 07/17/18 22:00 - Labs Result Diagrams: 07/17/18 06:12 07/17/18 06:12 Labs: Laboratory Results - last 24 hr 07/16/18 07/16/18 07/17/18 11:16 17:44 00:13 WBC RBC Hgb Hct MCV MCH MCHC RDW Plt Count MPV Neut % (Auto) Lymph % (Auto) [place] % (Auto) Eos % (Auto) Baso % (Auto) Neut # (Auto) Lymph # (Auto) [place] # (Auto) Eos # (Auto) Baso # (Auto) Sodium Potassium Chloride Carbon Dioxide Anion Gap BUN Creatinine Est GFR ( Amer) Est GFR (Non-Af Amer) POC Glucose (mg/dL) 215 H 152 H 310 H Random Glucose Hemoglobin A1c Calcium Phosphorus Magnesium Total Bilirubin AST ALT Alkaline Phosphatase Total Creatine Kinase CK-MB (Mass) Troponin I Total Protein Albumin Globulin Albumin/Globulin Ratio 07/17/18 07/17/18 07/17/18 05:09 06:12 06:12 WBC 13.7 H RBC 3.52 L Hgb 9.0 L Hct 28.0 L MCV 79.4 L MCH 25.5 L MCHC 32.1 L RDW 16.9 H Plt Count 213 MPV 9.5 Neut % (Auto) 79.5 H Lymph % (Auto) 13.0 L [place] % (Auto) 7.2 Eos % (Auto) 0.2 Baso % (Auto) 0.1 Neut # (Auto) 10.9 H Lymph # (Auto) 1.8 [place] # (Auto) 1.0 H Eos # (Auto) 0.0 Baso # (Auto) 0.0 Sodium 150 H Potassium 2.9 L Chloride 116 H Carbon Dioxide 26 Anion Gap 11 BUN 23 H Creatinine 0.8 Est GFR ( Amer) > 60 Est GFR (Non-Af Amer) > 60 POC Glucose (mg/dL) 99 Random Glucose 78 Hemoglobin A1c Calcium 8.7 Phosphorus 2.5 Magnesium 2.3 Total Bilirubin 0.6 AST 27 ALT 23 Alkaline Phosphatase 120 Total Creatine Kinase 61 CK-MB (Mass) 3.92 H Troponin I 9.2300 H* Total Protein 5.9 L Albumin 2.6 L Globulin 3.3 Albumin/Globulin Ratio 0.8 L 07/17/18 07/17/18 07/17/18 11:31 12:32 18:06 WBC RBC Hgb Hct MCV MCH MCHC RDW Plt Count MPV Neut % (Auto) Lymph % (Auto) [place] % (Auto) Eos % (Auto) Baso % (Auto) Neut # (Auto) Lymph # (Auto) [place] # (Auto) Eos # (Auto) Baso # (Auto) Sodium Potassium Chloride Carbon Dioxide Anion Gap BUN Creatinine Est GFR ( Amer) Est GFR (Non-Af Amer) POC Glucose (mg/dL) 282 H 238 H Random Glucose Hemoglobin A1c 9.0 H Calcium Phosphorus Magnesium Total Bilirubin AST ALT Alkaline Phosphatase Total Creatine Kinase CK-MB (Mass) Troponin I Total Protein Albumin Globulin Albumin/Globulin Ratio Assessment & Plan - Assessment and Plan (Free Text) Assessment: Septic shock Urosepsis Dehydration Plan: Aggressive fluid therapy pressors - Date & Time Date: 07/15/18 Time: 08:30
--- NOTE | 2018-07-18 00:20 | CP.PCM.PN ---
Subjective - Date & Time of Evaluation Date of Evaluation: 07/17/18 Time of Evaluation: 08:10 - Subjective Subjective: Awake, more alert NAD good urine output Objective - Vital Signs/Intake and Output Vital Signs (last 24 hours): Temp Pulse Resp BP Pulse Ox 99.1 F 94 H 20 117/72 92 L 07/17/18 20:00 07/17/18 22:00 07/17/18 22:00 07/17/18 22:59 07/17/18 22:00 Intake and Output: 07/17/18 07/18/18 18:59 06:59 Intake Total 1030 50 Output Total 500 170 Balance 530 -120 - Medications Medications: Current Medications Aspirin (Ecotrin) 81 mg PO DAILY [facility] Last Admin: 07/17/18 12:40 Dose: 81 mg Divalproex Sodium (Depakote Er) 250 mg PO HS [facility] Last Admin: 07/17/18 21:54 Dose: 250 mg Vancomycin/Sodium Chloride (Vancomycin 1 Gm/Ns 200 Ml) 1 gm in 200 mls @ 133.333 mls/hr IVPB Q24H [facility]; Protocol Stop: 07/20/18 02:31 Last Admin: 07/17/18 14:34 Dose: 133.333 mls/hr Vasopressin 40 units/ Dextrose 42 mls @ 0.63 mls/hr IV .Q24H [facility]; Protocol Last Titration: 07/16/18 22:30 Dose: 0 units/min, 0 mls/hr Diltiazem HCl 125 mg/ Dextrose 125 mls @ 5 mls/hr IV .Q24H [facility]; Protocol Last Titration: 07/16/18 11:00 Dose: 0 mg/hr, 0 mls/hr Norepinephrine Bitartrate 8 mg (/ Sodium Chloride) 250 mls @ 7.5 mls/hr IV .Q24H PRN; Protocol PRN Reason: TITRATE PER MD ORDER Last Titration: 07/16/18 23:30 Dose: 0 mcg/min, 0 mls/hr Cefepime HCl (Maxipime Iv 1 Gm Premix) 1 gm in 50 mls @ 100 mls/hr IVPB Q24H [facility]; Protocol Last Admin: 07/17/18 16:53 Dose: 100 mls/hr Insulin Aspart (Novolog) 0 unit SC Q6H [facility]; Protocol Last Admin: 07/17/18 18:49 Dose: 4 u Rosuvastatin Calcium (Crestor) 2.5 mg PO HS [facility] Last Admin: 07/17/18 21:54 Dose: 2.5 mg - Labs Labs: 07/17/18 06:12 07/17/18 06:12 PT 15.6 SECONDS (9.7-12.2) H 07/14/18 13:15 INR 1.4 07/14/18 13:15 APTT 31 SECONDS (21-34) 07/14/18 13:15 - Constitutional Appears: Chronically Ill - Head Exam Head Exam: NORMAL INSPECTION - Eye Exam Eye Exam: absent: Scleral icterus Pupil Exam: PERRL - ENT Exam ENT Exam: Mucous Membranes Moist - Neck Exam Neck Exam: Full ROM - Respiratory Exam Respiratory Exam: NORMAL BREATHING PATTERN - Cardiovascular Exam Cardiovascular Exam: REGULAR RHYTHM - GI/Abdominal Exam GI & Abdominal Exam: Soft - Extremities Exam Extremities Exam: absent: Pedal Edema Additional comments: rt BKA Assessment and Plan - Assessment and Plan (Free Text) Assessment: Sepsis UTI Dehydration COPD CAD Plan: Cont abtx Wean off pressors
--- NOTE | 2018-07-18 00:24 | CP.PCM.PN ---
Subjective - Date & Time of Evaluation Date of Evaluation: 07/16/18 Time of Evaluation: 08:30 - Subjective Subjective: more responsive still pressor dependent +UTI +pneumonia Objective - Vital Signs/Intake and Output Vital Signs (last 24 hours): Temp Pulse Resp BP Pulse Ox 99.1 F 94 H 20 117/72 92 L 07/17/18 20:00 07/17/18 22:00 07/17/18 22:00 07/17/18 22:59 07/17/18 22:00 Intake and Output: 07/17/18 07/18/18 18:59 06:59 Intake Total 1030 50 Output Total 500 170 Balance 530 -120 - Medications Medications: Current Medications Aspirin (Ecotrin) 81 mg PO DAILY [facility] Last Admin: 07/17/18 12:40 Dose: 81 mg Divalproex Sodium (Depakote Er) 250 mg PO HS [facility] Last Admin: 07/17/18 21:54 Dose: 250 mg Vancomycin/Sodium Chloride (Vancomycin 1 Gm/Ns 200 Ml) 1 gm in 200 mls @ 133 .333 mls/hr IVPB Q24H [facility]; Protocol Stop: 07/20/18 02:31 Last Admin: 07/17/18 14:34 Dose: 133.333 mls/hr Vasopressin 40 units/ Dextrose 42 mls @ 0.63 mls/hr IV .Q24H [facility]; Protocol Last Titration: 07/16/18 22:30 Dose: 0 units/min, 0 mls/hr Diltiazem HCl 125 mg/ Dextrose 125 mls @ 5 mls/hr IV .Q24H [facility]; Protocol Last Titration: 07/16/18 11:00 Dose: 0 mg/hr, 0 mls/hr Norepinephrine Bitartrate 8 mg (/ Sodium Chloride) 250 mls @ 7.5 mls/hr IV .Q24H PRN; Protocol PRN Reason: TITRATE PER MD ORDER Last Titration: 07/16/18 23:30 Dose: 0 mcg/min, 0 mls/hr Cefepime HCl (Maxipime Iv 1 Gm Premix) 1 gm in 50 mls @ 100 mls/hr IVPB Q24H [facility]; Protocol Last Admin: 07/17/18 16:53 Dose: 100 mls/hr Insulin Aspart (Novolog) 0 unit SC Q6H [facility]; Protocol Last Admin: 07/17/18 18:49 Dose: 4 u Rosuvastatin Calcium (Crestor) 2.5 mg PO HS [facility] Last Admin: 07/17/18 21:54 Dose: 2.5 mg - Labs Labs: 07/17/18 06:12 07/17/18 06:12 PT 15.6 SECONDS (9.7-12.2) H 07/14/18 13:15 INR 1.4 07/14/18 13:15 APTT 31 SECONDS (21-34) 07/14/18 13:15 - Constitutional Appears: Non-toxic - Head Exam Head Exam: NORMAL INSPECTION - Eye Exam Eye Exam: absent: Scleral icterus - ENT Exam ENT Exam: Mucous Membranes Moist - Neck Exam Neck Exam: Full ROM - Respiratory Exam Respiratory Exam: Decreased Breath Sounds - Cardiovascular Exam Cardiovascular Exam: REGULAR RHYTHM - GI/Abdominal Exam GI & Abdominal Exam: Soft - Extremities Exam Additional comments: rt BKA - Neurological Exam Neurological Exam: Altered, Awake Assessment and Plan - Assessment and Plan (Free Text) Assessment: Dehydration Urosepsis Pneumonia CAD PVD T2dm COPD Plan: Cont abtx, Cont fluids
[2018-07-18] MEDS: (Novolog) Insulin Aspart, Recombinant 100 u/ml 10 ml vial SC SCH ×4 (01:00→18:36)
[2018-07-18 06:33] LABS: BASO % 0.2 % (0.0-2.0); EOS # 0.2 K/uL (0.0-0.7); EOS % 1.3 % (0.0-4.0); HEMOGLOBIN 9.5 g/dL (11.0-16.0); LYMPH # 1.4 K/uL (1.0-4.3); LYMPH % 10.8 % (20.0-40.0); MEAN CELL VOLUME 81.5 fL (81.0-99.0); MEAN CORPUSCULAR HEMOGLOBIN 25.2 pg (27.0-31.0); MEAN CORPUSCULAR HGB CONC 30.9 g/dL (33.0-37.0); MEAN PLATELET VOLUME 9.7 fL (7.2-11.7); MONO # 0.8 K/uL (0.0-0.8); NEUT # 10.3 K/uL (1.8-7.0); NEUT % 81.7 % (50.0-75.0); NRBC % 0.3 % (0.0-2.0); RBC 3.78 Mil/uL (3.80-5.20); RED CELL DISTRIBUTION WIDTH 17.2 % (11.5-14.5); WHITE BLOOD COUNT 12.6 K/uL (4.8-10.8)
[2018-07-18 06:55] LABS: ALB/GLOB RATIO 0.8 (1.0-2.1); ALBUMIN 2.6 g/dL (3.5-5.0); ALT/SGPT 17 U/L (9-52); AST/SGOT 20 U/L (14-36); BLOOD UREA NITROGEN 16 mg/dL (7-17); CALCIUM 8.9 mg/dl (8.6-10.4); GFR NON-AFRICAN AMERICAN > 60
--- NOTE | 2018-07-18 10:54 | CP.PCM.PN ---
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 If her comdition improves we should do another angio to fix her tibial vessels MENDY Lam Objective - Vital Signs/Intake and Output Vital Signs (last 24 hours): Temp Pulse Resp BP Pulse Ox 98.0 F 110 H 23 122/65 91 L 07/18/18 08:00 07/18/18 10:00 07/18/18 10:00 07/18/18 10:00 07/18/18 09:00 Intake and Output: 07/18/18 07/18/18 06:59 18:59 Intake Total 100 145 Output Total 440 75 Balance -340 70 - Medications Medications: Current Medications Aspirin (Ecotrin) 81 mg PO DAILY [facility] Last Admin: 07/18/18 09:29 Dose: 81 mg Divalproex Sodium (Depakote Er) 250 mg PO HS [facility] Last Admin: 07/17/18 21:54 Dose: 250 mg Heparin Sodium (Porcine) (Heparin) 5,000 units SC Q8 [facility] Last Admin: 07/18/18 05:34 Dose: 5,000 units Vancomycin/Sodium Chloride (Vancomycin 1 Gm/Ns 200 Ml) 1 gm in 200 mls @ 133.3 33 mls/hr IVPB Q24H [facility]; Protocol Stop: 07/20/18 02:31 Last Admin: 07/17/18 14:34 Dose: 133.333 mls/hr Vasopressin 40 units/ Dextrose 42 mls @ 0.63 mls/hr IV .Q24H [facility]; Protocol Last Titration: 07/16/18 22:30 Dose: 0 units/min, 0 mls/hr Diltiazem HCl 125 mg/ Dextrose 125 mls @ 5 mls/hr IV .Q24H [facility]; Protocol Last Titration: 07/16/18 11:00 Dose: 0 mg/hr, 0 mls/hr Norepinephrine Bitartrate 8 mg (/ Sodium Chloride) 250 mls @ 7.5 mls/hr IV .Q24H PRN; Protocol PRN Reason: TITRATE PER MD ORDER Last Titration: 07/16/18 23:30 Dose: 0 mcg/min, 0 mls/hr Cefepime HCl (Maxipime Iv 1 Gm Premix) 1 gm in 50 mls @ 100 mls/hr IVPB Q24H [facility]; Protocol Last Admin: 07/17/18 16:53 Dose: 100 mls/hr Insulin Aspart (Novolog) 0 unit SC Q6H [facility]; Protocol Last Admin: 07/18/18 05:33 Dose: 2 u Rosuvastatin Calcium (Crestor) 2.5 mg PO HS [facility] Last Admin: 07/17/18 21:54 Dose: 2.5 mg - Labs Labs: 07/18/18 06:19 07/18/18 06:19 PT 15.6 SECONDS (9.7-12.2) H 07/14/18 13:15 INR 1.4 07/14/18 13:15 APTT 31 SECONDS (21-34) 07/14/18 13:15
[2018-07-18] MEDS ORDERED: Potassium Chloride 20 mEq ER Tab PO ONE ×3 (11:30→14:30)
--- NOTE | 2018-07-18 11:42 | PN ---
DATE: 07/18/2018 SUBJECTIVE: She is now DNR/DNI as per the son. They are thinking possibly of hospice. If we go that route I use [facility]. MEDICATIONS: She is on Crestor, Depakote, diltiazem IV, heparin, Maxipime IV, norepinephrine, NovoLog, vancomycin IV, vasopressors. PHYSICAL EXAMINATION: GENERAL: She is alert. She is looking at me. She said a couple of words, but completely confused. VITAL SIGNS: At this time she has 98.8 temperature, 90 pulse, 122/50 blood pressure, 19 respiratory rate, 90% O2 sat on oxygen. HEENT: Atraumatic, normocephalic. She is looking at me. She smiles. She moved her arm. She is on mittens because she is pulling on things. HEART: Regular rate. LUNGS: Decreased breath sounds, but clear. ABDOMEN: Soft. EXTREMITIES: No edema. She has a right BKA. She has septic shock, [place], sacral ulcer, bilateral pneumonia, acute kidney injury, diabetes. LABORATORY DATA: She has a 12.6 white count, that is the best it has been, the infection has been coming down. Hemoglobin 9.5, hematocrit 30.8, platelets are 222. She has 150 sodium; potassium 2.9, potassium will be replaced. Last blood sugar is 166, hemoglobin A1c is 9, calcium is 8.7, phosphorus is 2.5, magnesium 2.3, total bili is 0.6, AST is 27, ALT is 22, alkaline phosphatase is 120, troponin I is 9.2, still high. ASSESSMENT AND PLAN: She has urinary tract infection. She has Corynebacterium species, gram-positive cocci, gram-negative rods. She is being seen by Infectious Disease, Cardiology, Vascular, Insurance Verify Rep. She has multiple issues going on. She is very lethargic, bedridden. Continue IV antibiotics as per Infectious Disease. She has cellulitis. Septic shock, acute kidney injury, acute respiratory failure, hypoxemia, altered mental status. Routine aggressive treatment care. Now she is a DNR/DNI. Check a.m. labs tomorrow. Haja Pink DO
[2018-07-18] MEDS: Metoprolol 1 mg/ml Inj IVP SCH ×3 (11:57→23:26)
[2018-07-18] MEDS: Vancomycin 1 gm/NS 200 ml 1 GM/200 ML BAG IVPB SCH (14:26)
[2018-07-18] MEDS: Cefepime IV 1 gm in Dextrose 1 GM/50 ML BAG IVPB SCH (18:36)
[2018-07-18] MEDS: Rosuvastatin Calcium 2.5 mg Tab PO SCH (21:37)
[2018-07-19] MEDS: (Novolog) Insulin Aspart, Recombinant 100 u/ml 10 ml vial SC SCH ×5 (00:13→23:43)
[2018-07-19] MEDS: Metoprolol 1 mg/ml Inj IVP SCH ×4 (05:07→23:32)
[2018-07-19 05:59] LABS: HEMOGLOBIN 10.2 g/dL (11.0-16.0); MEAN CELL VOLUME 81.8 fL (81.0-99.0); MEAN CORPUSCULAR HEMOGLOBIN 25.5 pg (27.0-31.0); MEAN CORPUSCULAR HGB CONC 31.2 g/dL (33.0-37.0); MEAN PLATELET VOLUME 9.7 fL (7.2-11.7); RBC 3.99 Mil/uL (3.80-5.20); RED CELL DISTRIBUTION WIDTH 17.8 % (11.5-14.5)
[2018-07-19 06:20] LABS: ALB/GLOB RATIO 0.8 (1.0-2.1); ALBUMIN 2.8 g/dL (3.5-5.0); ALT/SGPT 21 U/L (9-52); AST/SGOT 15 U/L (14-36); BLOOD UREA NITROGEN 13 mg/dL (7-17); CALCIUM 9.1 mg/dl (8.6-10.4); GFR NON-AFRICAN AMERICAN > 60
--- NOTE | 2018-07-19 12:47 | PN ---
DATE: 07/19/2018 SUBJECTIVE: She is in intensive care unit. She is being fed by a nurse. She is taking some pudding, did not like the oatmeal. She was not talking to me today. She looked at me and smiled a little bit. She is still a little bit Crestor, Depakote, Ecotrin, heparin, Lopressor, Maxipime IV, norepinephrine, NovoLog, and vancomycin IV. PHYSICAL EXAMINATION: VITAL SIGNS: She has a 98.5 temp, 95 pulse, 122/66 blood pressure, 98% O2 sat, and 22 respiratory rate. HEENT: Head is atraumatic and normocephalic. She is looking at me, staring, trying to smile, did not talk. HEART: Regular rate. LUNGS: Decreased breath sounds, but clear. ABDOMEN: Soft. EXTREMITIES: She has a right BKA. She is here for septic shock, [place], sacral ulcer, bilateral pneumonia, cellulitis, diabetes, UTI. She is having a very rough time. She is a DNR/DNI now. LABORATORY DATA: White count is gone up to 14, hemoglobin 7.2, hematocrit 32.7, platelets 260. She has 158 sodium, potassium 3.5; we will replace potassium, 125 chloride, BUN is 30, creatinine 0.8, GFR is greater than 50. Sugar is 180, calcium is 9.1, total bili is 0.4, AST is 15, ALT is 21, alk phos 115, total protein is 6.2. She has been seen by Vascular, Infectious Disease, Cardiology, and the adjunct psychology instructor. She is weak, lethargic, bedridden at this time, DNR/DNI. She has Corynebacterium, gram-negative som in the wounds, yeast in the urine. Continue aggressive treatment and care. I will replace the potassium. Continue to try and see if she will eat better. Keep her stimulated as possible. I gave her 10 mEq and continue aggressive treatment and care. Haja Pink DO [facility]
[2018-07-19] MEDS: Vancomycin 1 gm/NS 200 ml 1 GM/200 ML BAG IVPB SCH (14:20)
--- NOTE | 2018-07-19 16:16 | CP.PCM.PN ---
Subjective - Date & Time of Evaluation Date of Evaluation: 07/19/18 Time of Evaluation: 08:00 - Subjective Subjective: remains confused lethargic NAD afebrile Objective - Vital Signs/Intake and Output Vital Signs (last 24 hours): Temp Pulse Resp BP Pulse Ox 98.5 F 95 H 22 122/56 L 98 07/19/18 04:00 07/19/18 06:59 07/19/18 06:59 07/19/18 06:59 07/19/18 06:59 Intake and Output: 07/19/18 07/19/18 06:59 18:59 Intake Total 100 Output Total 410 Balance -310 - Medications Medications: Current Medications Aspirin (Ecotrin) [address] [facility] Last Admin: 07/19/18 09:53 Dose: 81 mg Divalproex Sodium (Depakote Er) [address] [facility] Last Admin: 07/18/18 21:37 Dose: 250 mg Heparin Sodium (Porcine) (Heparin) 5,000 units SC Q8 [facility] Last Admin: 07/19/18 14:24 Dose: 5,000 units Vancomycin/Sodium Chloride (Vancomycin 1 Gm/Ns 200 Ml) 1 gm in 200 mls @ 133.333 mls/hr IVPB Q24H [facility]; Protocol Stop: 07/20/18 02:31 Last Admin: 07/19/18 14:20 Dose: 133.333 mls/hr Norepinephrine Bitartrate 8 mg (/ Sodium Chloride) 250 mls @ 7.5 mls/hr IV .Q24H PRN; Protocol PRN Reason: TITRATE PER MD ORDER Last Titration: 07/16/18 23:30 Dose: 0 mcg/min, 0 mls/hr Cefepime HCl (Maxipime Iv 1 Gm Premix) 1 gm in 50 mls @ 100 mls/hr IVPB Q24H [facility]; Protocol Last Admin: 07/18/18 18:36 Dose: 100 mls/hr Insulin Aspart (Novolog) 0 unit SC Q6H [facility]; Protocol Last Admin: 07/19/18 14:22 Dose: 8 u Metoprolol Tartrate (Lopressor) 2.5 mg IVP Q6H [facility] Last Admin: 07/19/18 10:36 Dose: 2.5 mg Rosuvastatin Calcium (Crestor) 2.[address] [facility] Last Admin: 07/18/18 21:37 Dose: 2.5 mg - Labs Labs: 07/19/18 05:51 07/19/18 05:51 PT 15.6 SECONDS (9.7-12.2) H 07/14/18 13:15 INR 1.4 07/14/18 13:15 APTT 31 SECONDS (21-34) 07/14/18 13:15 - Constitutional Appears: Confused, Cachectic, Chronically Ill - Head Exam Head Exam: NORMOCEPHALIC - Eye Exam Eye Exam: absent: Scleral icterus - ENT Exam ENT Exam: Normal External Ear Exam - Neck Exam Neck Exam: absent: Lymphadenopathy - Respiratory Exam Respiratory Exam: Decreased Breath Sounds, Prolonged Expiratory Phase, Rales, Rhonchi - Cardiovascular Exam Cardiovascular Exam: REGULAR RHYTHM - GI/Abdominal Exam GI & Abdominal Exam: Distended, Soft - Rectal Exam Rectal Exam: Deferred - Exam Exam: NORMAL INSPECTION - Extremities Exam Extremities Exam: absent: Normal Capillary Refill, Normal Inspection, Pedal Edema Additional comments: right BKA left foot ulcer /redness noted - Back Exam Back Exam: absent: CVA tenderness (L), CVA tenderness (R) - Neurological Exam Neurological Exam: Altered Assessment and Plan (1) Cellulitis Status: Acute (2) Septic shock Status: Acute (3) TAMEKA (acute kidney injury) Status: Acute (4) Acute respiratory failure with hypoxemia Status: Acute (5) Altered mental status Status: Acute (6) Bipolar disorder Status: Acute (7) CKD (chronic kidney disease) stage 3, GFR 30-59 ml/min Status: Acute (8) Cellulitis, leg Status: Acute - Assessment and Plan (Free Text) Assessment: cont iv antibiotics and wound care vascular and cardio eval noted prognosis remains poor
--- NOTE | 2018-07-19 20:03 | CP.PCM.PN ---
Subjective - Date & Time of Evaluation Date of Evaluation: 07/19/18 Time of Evaluation: 10:00 - Subjective Subjective: remains confused NAD non-verbal +septic DNR/DNI in effect Objective - Vital Signs/Intake and Output Vital Signs (last 24 hours): Temp Pulse Resp BP Pulse Ox 98.5 F 95 H 22 122/56 L 98 07/19/18 04:00 07/19/18 06:59 07/19/18 06:59 07/19/18 06:59 07/19/18 06:59 - Medications Medications: Current Medications Aspirin (Ecotrin) 81 mg PO DAILY [facility] Last Admin: 07/19/18 09:53 Dose: 81 mg Divalproex Sodium (Depakote Er) 250 mg PO HS [facility] Last Admin: 07/18/18 21:37 Dose: 250 mg Heparin Sodium (Porcine) (Heparin) 5,000 units SC Q8 [facility] Last Admin: 07/19/18 14:24 Dose: 5,000 units Vancomycin/Sodium Chloride (Vancomycin 1 Gm/Ns 200 Ml) 1 gm in 200 mls @ 133.333 mls/hr IVPB Q24H [facility]; Protocol Stop: 07/20/18 02:31 Last Admin: 07/19/18 14:20 Dose: 133.333 mls/hr Norepinephrine Bitartrate 8 mg (/ Sodium Chloride) 250 mls @ 7.5 mls/hr IV .Q24H PRN; Protocol PRN Reason: TITRATE PER MD ORDER Last Titration: 07/16/18 23:30 Dose: 0 mcg/min, 0 mls/hr Ceftazidime/Avibactam 2.5 gm/ (Sodium Chloride) 100 mls @ 50 mls/hr IV Q8H [facility]; Protocol Last Admin: 07/19/18 18:22 Dose: 50 mls/hr Insulin Aspart (Novolog) 0 unit SC Q6H [facility]; Protocol Last Admin: 07/19/18 18:19 Dose: Not Given Metoprolol Tartrate (Lopressor) 2.5 mg IVP Q6H [facility] Last Admin: 07/19/18 18:22 Dose: 2.5 mg Rosuvastatin Calcium (Crestor) 2.5 mg PO HS [facility] Last Admin: 07/18/18 21:37 Dose: 2.5 mg - Labs Labs: 07/19/18 05:51 07/19/18 05:51 PT 15.6 SECONDS (9.7-12.2) H 07/14/18 13:15 INR 1.4 07/14/18 13:15 APTT 31 SECONDS (21-34) 07/14/18 13:15 - Constitutional Appears: Chronically Ill - Head Exam Head Exam: ATRAUMATIC - Eye Exam Eye Exam: absent: Scleral icterus - Neck Exam Neck Exam: absent: Lymphadenopathy - Respiratory Exam Respiratory Exam: Decreased Breath Sounds - Cardiovascular Exam Cardiovascular Exam: REGULAR RHYTHM - GI/Abdominal Exam GI & Abdominal Exam: Soft - Extremities Exam Extremities Exam: absent: Pedal Edema Additional comments: rt BKA - Neurological Exam Neurological Exam: Altered Assessment and Plan - Assessment and Plan (Free Text) Assessment: Altered mental status Septic shock Cellulitis Acute respiratory failure Acute on Chronic kidney failure stage 3 PVD Bipolar depression Plan: Cont abtx pressors DNR/DNI Poor prognosis
--- NOTE | 2018-07-19 20:09 | CP.PCM.PN ---
Subjective - Date & Time of Evaluation Date of Evaluation: 07/18/18 Time of Evaluation: 11:00 - Subjective Subjective: seen by ID pt lethargic +pressor dependent Objective - Vital Signs/Intake and Output Vital Signs (last 24 hours): Temp Pulse Resp BP Pulse Ox 98.5 F 95 H 22 122/56 L 98 07/19/18 04:00 07/19/18 06:59 07/19/18 06:59 07/19/18 06:59 07/19/18 06:59 - Medications Medications: Current Medications Aspirin (Ecotrin) 81 mg PO DAILY [facility] Last Admin: 07/19/18 09:53 Dose: 81 mg Divalproex Sodium (Depakote Er) 250 mg PO HS [facility] Last Admin: 07/18/18 21:37 Dose: 250 mg Heparin Sodium (Porcine) (Heparin) 5,000 units SC Q8 [facility] Last Admin: 07/19/18 14:24 Dose: 5,000 units Vancomycin/Sodium Chloride (Vancomycin 1 Gm/Ns 200 Ml) 1 gm in 200 mls @ 133.333 mls/hr IVPB Q24H [facility]; Protocol Stop: 07/20/18 02:31 Last Admin: 07/19/18 14:20 Dose: 133.333 mls/hr Norepinephrine Bitartrate 8 mg (/ Sodium Chloride) 250 mls @ 7.5 mls/hr IV .Q24H PRN; Protocol PRN Reason: TITRATE PER MD ORDER Last Titration: 07/16/18 23:30 Dose: 0 mcg/min, 0 mls/hr Ceftazidime/Avibactam 2.5 gm/ (Sodium Chloride) 100 mls @ 50 mls/hr IV Q8H [facility]; Protocol Last Admin: 07/19/18 18:22 Dose: 50 mls/hr Insulin Aspart (Novolog) 0 unit SC Q6H [facility]; Protocol Last Admin: 07/19/18 18:19 Dose: Not Given Metoprolol Tartrate (Lopressor) 2.5 mg IVP Q6H [facility] Last Admin: 07/19/18 18:22 Dose: 2.5 mg Rosuvastatin Calcium (Crestor) 2.5 mg PO HS [facility] Last Admin: 07/18/18 21:37 Dose: 2.5 mg - Labs Labs: 07/19/18 05:51 07/19/18 05:51 PT 15.6 SECONDS (9.7-12.2) H 07/14/18 13:15 INR 1.4 07/14/18 13:15 APTT 31 SECONDS (21-34) 07/14/18 13:15 - Constitutional Appears: Chronically Ill - Head Exam Head Exam: NORMAL INSPECTION - Eye Exam Eye Exam: absent: Scleral icterus - Neck Exam Neck Exam: Full ROM - Respiratory Exam Respiratory Exam: Decreased Breath Sounds - Cardiovascular Exam Cardiovascular Exam: REGULAR RHYTHM - GI/Abdominal Exam GI & Abdominal Exam: absent: Soft - Extremities Exam Additional comments: rt BKA no edema +cellulitis Assessment and Plan - Assessment and Plan (Free Text) Assessment: Septic shock Metabolic encephalopathy Acute on CKD stage 3 Acute respiratory failure CAD Plan: Cont abtx as per ID Cont meds Cont pressors DNI/DNR Poor prognosis
[2018-07-19] MEDS: Rosuvastatin Calcium 2.5 mg Tab PO SCH (22:35)
[2018-07-20] MEDS: Metoprolol 1 mg/ml Inj IVP SCH ×4 (05:05→22:37)
[2018-07-20] MEDS: (Novolog) Insulin Aspart, Recombinant 100 u/ml 10 ml vial SC SCH ×3 (05:45→17:51)
[2018-07-20 06:15] LABS: HEMOGLOBIN 9.9 g/dL (11.0-16.0); MEAN CELL VOLUME 83.5 fL (81.0-99.0); MEAN CORPUSCULAR HEMOGLOBIN 25.4 pg (27.0-31.0); MEAN CORPUSCULAR HGB CONC 30.4 g/dL (33.0-37.0); MEAN PLATELET VOLUME 10.5 fL (7.2-11.7); RBC 3.91 Mil/uL (3.80-5.20); RED CELL DISTRIBUTION WIDTH 17.9 % (11.5-14.5); WHITE BLOOD COUNT 12.3 K/uL (4.8-10.8)
[2018-07-20 06:33] LABS: ALB/GLOB RATIO 0.8 (1.0-2.1); ALBUMIN 2.6 g/dL (3.5-5.0); ALT/SGPT 10 U/L (9-52); AST/SGOT 12 U/L (14-36); BLOOD UREA NITROGEN 12 mg/dL (7-17); CALCIUM 8.8 mg/dl (8.6-10.4); GFR NON-AFRICAN AMERICAN > 60
--- NOTE | 2018-07-20 08:15 | PN ---
DATE: 07/20/2018 SUBJECTIVE: I saw her in the intensive care unit. She is staring. She is moving her arms a little bit. She is nonverbal. She is staring, no smiling. She is on ceftazidime IV, Crestor, Depakote, Ecotrin, heparin, Lopressor, norepinephrine, and NovoLog. PHYSICAL EXAMINATION: VITAL SIGNS: She has 98 temperature, 88 pulse with 115/65 blood pressure, 19 respiratory rate, and 99% O2 sat on room air. HEENT: Atraumatic and normocephalic. She is just staring, nonverbal. HEART: Regular rate. LUNGS: Decreased breath sounds, but clear. ABDOMEN: Soft. Discussed with the nurse. The night nurse said she was calm all night. No coughing. EXTREMITIES: Right BKA. Left leg has bandage, some small ulcers to the stump on the right feet and the left. LABORATORY DATA: She has 14 white count which is going up, 10.2 hemoglobin, 32.7 hematocrit, and 260 platelets. She has 158 sodium, potassium 3.5 which replaced, BUN 13, creatinine 0.8, GFR is greater than 60, sugars 166, calcium 9.1. Total bilirubin is 0.4, AST is 16, ALT is 21, alk phos 116, and total protein 6.2. ASSESSMENT AND PLAN: She is being seen by Infectious Disease, Cardiology, Vascular. She is still confused, lethargic, staring, nonverbal. Cellulitis, septic shock, acute kidney injury, acute respiratory failure with hypoxemia, altered mental status, bipolar disease, history of chronic kidney disease stage III, leg cellulitis. Continue on IV antibiotics. We are going to do, do not resuscitate and do not intubate. Check her laboratories tomorrow, make sure potassium is replaced. Continue aggressive treatment and care in intensive care unit. Haja Pink DO
--- NOTE | 2018-07-20 11:16 | CP.PCM.PN ---
Subjective - Date & Time of Evaluation Date of Evaluation: 07/20/18 Time of Evaluation: 08:00 - Subjective Subjective: arousable confused nad Objective - Vital Signs/Intake and Output Vital Signs (last 24 hours): Temp Pulse Resp BP Pulse Ox 98.0 F 88 19 115/65 99 07/20/18 04:00 07/20/18 04:00 07/20/18 04:00 07/20/18 04:00 07/20/18 04:00 Intake and Output: 07/20/18 07/20/18 06:59 18:59 Intake Total 100 Output Total 200 Balance -100 - Medications Medications: Current Medications Aspirin (Ecotrin) 81 mg PO DAILY [facility] Last Admin: 07/19/18 09:53 Dose: 81 mg Divalproex Sodium (Depakote Er) 250 mg PO HS [facility] Last Admin: 07/19/18 22:35 Dose: 250 mg Heparin Sodium (Porcine) (Heparin) 5,000 units SC Q8 [facility] Last Admin: 07/20/18 05:06 Dose: 5,000 units Norepinephrine Bitartrate 8 mg (/ Sodium Chloride) 250 mls @ 7.5 mls/hr IV .Q24H PRN; Protocol PRN Reason: TITRATE PER MD ORDER Last Titration: 07/16/18 23:30 Dose: 0 mcg/min, 0 mls/hr Ceftazidime/Avibactam 2.5 gm/ (Sodium Chloride) 100 mls @ 50 mls/hr IV Q8H [facility]; Protocol Last Admin: 07/20/18 09:10 Dose: 50 mls/hr Insulin Aspart (Novolog) 0 unit SC Q6H [facility]; Protocol Last Admin: 07/20/18 05:45 Dose: 2 u Metoprolol Tartrate (Lopressor) 2.5 mg IVP Q6H [facility] Last Admin: 07/20/18 05:05 Dose: 2.5 mg Rosuvastatin Calcium (Crestor) 2.5 mg PO HS [facility] Last Admin: 07/19/18 22:35 Dose: 2.5 mg - Labs Labs: 07/20/18 06:05 07/20/18 06:03 PT 15.6 SECONDS (9.7-12.2) H 07/14/18 13:15 INR 1.4 07/14/18 13:15 APTT 31 SECONDS (21-34) 07/14/18 13:15 - Constitutional Appears: Confused, Cachectic, Chronically Ill - Head Exam Head Exam: NORMOCEPHALIC - Eye Exam Eye Exam: absent: Scleral icterus - ENT Exam ENT Exam: Mucous Membranes Dry - Neck Exam Neck Exam: absent: Lymphadenopathy - Respiratory Exam Respiratory Exam: Decreased Breath Sounds - Cardiovascular Exam Cardiovascular Exam: REGULAR RHYTHM - GI/Abdominal Exam GI & Abdominal Exam: Distended - Rectal Exam Rectal Exam: Deferred - Extremities Exam Additional comments: right BKA Assessment and Plan (1) Cellulitis Status: Acute (2) Septic shock Status: Acute (3) TAMEKA (acute kidney injury) Status: Acute (4) Acute respiratory failure with hypoxemia Status: Acute (5) Altered mental status Status: Acute (6) Bipolar disorder Status: Acute (7) CKD (chronic kidney disease) stage 3, GFR 30-59 ml/min Status: Acute (8) Cellulitis, leg Status: Acute
--- NOTE | 2018-07-20 12:28 | CARD ---
APPROVED REPORT Date of service: 07/16/2018 EKG Measurement Heart [id number] <Conclusion> Atrial flutter with variable AV block Inferior infarct, age undetermined ST & T wave abnormality, consider lateral ischemia Abnormal ECG
--- NOTE | 2018-07-20 12:29 | CARD ---
APPROVED REPORT Date of service: 07/14/2018 EKG Measurement Heart [id number] <Conclusion> Atrial fibrillation with a competing junctional pacemaker Low voltage QRS Inferior infarct, age undetermined ST & T wave abnormality, consider anterior ischemia Abnormal ECG
--- NOTE | 2018-07-20 16:37 | CP.PCM.CON ---
History of Present Illness - History of Present Illness History of Present Illness: Nephrology Consultation Note: Assessment: critical hypernatremia likely dehydration Hypokalemia Acute Kidney Injury (N17.9) resolved Rt renal atrophy and left adrenal adenoma on imaging sepsis PVD, DM, HTN, hypercholesterolemia, right BKA, bipolar depression disorder sys CHF, NSTEMI Plan No acute need for renal replacement therapy at this time. . Hypertension control with meds as ordered. Maintain hemodynamics stable. Avoid hypotension. Patient not on ACEI/ARB due to recent TAMEKA and low BP Monitor Input/Output, daily weights and renal function with basic metabolic panel will add D5W @ 75 ml/hr with 20 meq K encourage free water intake, as possible Check urine analysis, urine Na/K/Osmol Dose meds/antibiotics for GFR>60. Glycemic control Further work up/management as per primary team Thanks for allowing me to participate in care of your patient. Will follow patient with you. Please call if any Qs. had d/w team Dr Robson Nicholas Office: [phone] Chief Complaint; unable to obtain Reason for consult: Hypernatremia HPI: Pt is a 72 year old female with PMH of PVD, DM, HTN, hypercholesterolemia, right BKA, bipolar depression disorder admitted with AMS and sepsis. was also managed for TAMEKA, CHF with pleural effusion, NSTEMI renal consult for hypernatremia pt unable to provide any hx ROS: unable obtain from pt Physical Examination: General Appearance: in no acute respiratory distress, not co-operative . ill appearing Vitals reviewed and noted as below Head; Atraumatic, normocephalic ENT: unable EYES: Pupils are equal, round and reactive to light accommodation. Eye muscles and extraocular movement intact. Sclera is anicteric. Neck; supple no lymphadenopathy, no thyromegaly or bruit Lungs: Normal respiratory rate/effort. Breath sounds reduced at Rt base Heart: Normal rate. s1s2 normal. No rub or gallop. Extremities: no edema. No varicose veins. Rt BKA Neurological: Patient is non communicative Skin: Warm and dry. Normal turgor. No rash. Palpitation: Normal elasticity for age Abdomen: Abdomen is soft. Bowel sounds +. There is no abdominal tenderness, no guarding/rigidity no organomegaly Psych: unable MSK: no joint tenderness or swelling. Digits and nails normal, no deformity : kidney or bladder not palpable Labs/imaging reviewed. Past medical history, past surgical history, family history, social history, allergy reviewed and noted as below Family hx: no hx of CKD. Rest non-contributory Past Patient History - Infectious Disease Hx of Infectious Diseases: None - Tetanus Immunizations Tetanus Immunization: Unknown - Past Medical History & Family History Past Medical History?: Yes - Past Social History Smoking Status: Former Smoker - CARDIAC Hx Cardiac Disorders: Yes Hx Congestive Heart Failure: Yes Hx Hypertension: Yes Hx Peripheral Vascular Disease: Yes - PULMONARY Hx Chronic Obstructive Pulmonary Disease (COPD): Yes - NEUROLOGICAL Hx Seizures: No - HEENT Hx HEENT Problems: Yes Hx Cataracts: Yes - RENAL Hx Chronic Kidney Disease: No - ENDOCRINE/METABOLIC Hx Diabetes Mellitus Type 2: Yes - HEMATOLOGICAL/ONCOLOGICAL Hx Human Immunodeficiency Virus (HIV): No - INTEGUMENTARY Hx Dermatological Problems: No Other/Comment: pvd - MUSCULOSKELETAL/RHEUMATOLOGICAL Hx Musculoskeletal Disorders: Yes Hx Falls: No Other/Comment: RIGHT BKA - GASTROINTESTINAL Hx Gastrointestinal Disorders: No - GENITOURINARY/GYNECOLOGICAL Hx Sexually Transmitted Disorders: No - PSYCHIATRIC Hx Anxiety: Yes Hx Bipolar Disorder: Yes Hx Depression: Yes Hx Substance Use: No - SURGICAL HISTORY Hx Mastectomy: No Hx Orthopedic Surgery: Yes - ANESTHESIA Hx Anesthesia: Yes Hx Anesthesia Reactions: No Hx Malignant Hyperthermia: No Meds Allergies/Adverse Reactions: Allergies Allergy/AdvReac Type Severity Reaction Status Date / Time Iodinated Contrast- Oral and Allergy ANAPHYLAXIS Verified 07/14/18 11:35 IV Dye Penicillins Allergy ANAPHYLAXIS Verified 07/14/18 11:35 aminothiol Allergy ANAPHYLAXIS Uncoded 05/31/18 20:30 - Medications Medications: Current Medications Aspirin (Ecotrin) 81 mg PO DAILY [facility] Last Admin: 07/20/18 11:00 Dose: Not Given Divalproex Sodium (Depakote Er) 250 mg PO HS [facility] Last Admin: 07/19/18 22:35 Dose: 250 mg Heparin Sodium (Porcine) (Heparin) 5,000 units SC Q8 [facility] Last Admin: 07/20/18 14:00 Dose: 5,000 units Norepinephrine Bitartrate 8 mg (/ Sodium Chloride) 250 mls @ 7.5 mls/hr IV .Q24H PRN; Protocol PRN Reason: TITRATE PER MD ORDER Last Titration: 07/16/18 23:30 Dose: 0 mcg/min, 0 mls/hr Ceftazidime/Avibactam 2.5 gm/ (Sodium Chloride) 100 mls @ 50 mls/hr IV Q8H [facility]; Protocol Last Admin: 07/20/18 09:10 Dose: 50 mls/hr Insulin Aspart (Novolog) 0 unit SC Q6H [facility]; Protocol Last Admin: 07/20/18 12:35 Dose: Not Given Metoprolol Tartrate (Lopressor) 2.5 mg IVP Q6H [facility] Last Admin: 07/20/18 12:30 Dose: Not Given Rosuvastatin Calcium (Crestor) 2.5 mg PO HS [facility] Last Admin: 07/19/18 22:35 Dose: 2.5 mg Results - Vital Signs Recent Vital Signs: Last Vital Signs Temp 98.0 F 07/20/18 04:00 Pulse 88 07/20/18 04:00 Resp 19 07/20/18 04:00 BP 115/65 07/20/18 04:00 Pulse Ox 99 07/20/18 04:00 - Labs Result Diagrams: 07/20/18 06:05 07/20/18 06:03 Labs: Laboratory Results - last 24 hr 07/19/18 07/19/18 07/20/18 18:15 23:34 05:42 WBC RBC Hgb Hct MCV MCH MCHC RDW Plt Count MPV Sodium Potassium Chloride Carbon Dioxide Anion Gap BUN Creatinine Est GFR ( Amer) Est GFR (Non-Af Amer) POC Glucose (mg/dL) 73 166 H 194 H Random Glucose Calcium Total Bilirubin AST ALT Alkaline Phosphatase Total Protein Albumin Globulin Albumin/Globulin Ratio 07/20/18 07/20/18 07/20/18 06:03 06:05 11:59 WBC 12.3 H RBC 3.91 Hgb 9.9 L Hct 32.7 L MCV 83.5 MCH 25.4 L MCHC 30.4 L RDW 17.9 H Plt Count 224 MPV 10.5 Sodium 160 H* Potassium 3.6 Chloride 126 H Carbon Dioxide 23 Anion Gap 15 BUN 12 Creatinine 0.7 Est GFR ( Amer) > 60 Est GFR (Non-Af Amer) > 60 POC Glucose (mg/dL) 185 H Random Glucose 168 H Calcium 8.8 Total Bilirubin 0.4 AST 12 L ALT 10 Alkaline Phosphatase 87 Total Protein 5.7 L Albumin 2.6 L Globulin 3.2 Albumin/Globulin Ratio 0.8 L
[2018-07-20 17:12] LABS: URINE BILIRUBIN NEGATIVE (NEGATIVE); URINE CLARITY SLIGHT-CLOUDY (Clear); URINE COLOR YELLOW (YELLOW); URINE GLUCOSE (UA) NEGATIVE (Normal)
[2018-07-20 17:13] LABS: SQUAMOUS EPITHIAL 1 /hpf (0-5); URINE BLOOD LARGE (NEGATIVE); URINE LEUKOCYTE ESTERASE TRACE Leu/uL (Negative); URINE PROTEIN 30 mg/dL (NEGATIVE); URINE UROBILINOGEN 0.2 mg/dL (0.2-1.0)
[2018-07-20 17:14] LABS: URINE BACTERIA MOD (<OCC)
[2018-07-20 17:19] LABS: OSMOLALITY,URINE 547 mosm/kg (300-1000)
[2018-07-20] MEDS: Potassium Ch 20mEq in D5W 1,000 ML IV SCH (17:35)
[2018-07-20] MEDS: Rosuvastatin Calcium 2.5 mg Tab PO SCH (22:04)
[2018-07-21] MEDS: (Novolog) Insulin Aspart, Recombinant 100 u/ml 10 ml vial SC SCH ×4 (00:07→18:00)
[2018-07-21] MEDS: Metoprolol 1 mg/ml Inj IVP SCH ×3 (05:26→16:36)
[2018-07-21] MEDS: Potassium Ch 20mEq in D5W 1,000 ML IV SCH ×2 (06:15→20:13)
[2018-07-21 06:41] LABS: HEMOGLOBIN 9.7 g/dL (11.0-16.0); MEAN CELL VOLUME 83.9 fL (81.0-99.0); MEAN CORPUSCULAR HEMOGLOBIN 25.6 pg (27.0-31.0); MEAN CORPUSCULAR HGB CONC 30.5 g/dL (33.0-37.0); MEAN PLATELET VOLUME 10.7 fL (7.2-11.7); RBC 3.78 Mil/uL (3.80-5.20); RED CELL DISTRIBUTION WIDTH 18.3 % (11.5-14.5); WHITE BLOOD COUNT 11.6 K/uL (4.8-10.8)
[2018-07-21 06:59] LABS: ALB/GLOB RATIO 0.8 (1.0-2.1); ALBUMIN 2.5 g/dL (3.5-5.0); ALT/SGPT 12 U/L (9-52); AST/SGOT 9 U/L (14-36); BLOOD UREA NITROGEN 11 mg/dL (7-17); CALCIUM 8.4 mg/dl (8.6-10.4); GFR NON-AFRICAN AMERICAN > 60
[2018-07-21 07:14] LABS: URIC ACID 7.6 mg/dL (2.2-7.5)
--- NOTE | 2018-07-21 08:53 | PN ---
DATE: 07/21/2018 SUBJECTIVE: She is in the intensive care unit. She is looking. She is staring. She looked at me. She tried to say good morning. She is currently on ceftazidime, Crestor, Depakote, Ecotrin, heparin, Lopressor, norepinephrine, NovoLog, and potassium replacement. We will try to get her to an LTACH due to her chronic condition and long time heal through this. PHYSICAL EXAMINATION: VITAL SIGNS: She currently has 98 temperature, 85 pulse, 133/68 blood pressure, 17 respiratory rate, 100% O2 sat on O2. HEENT: Head is atraumatic and normocephalic. HEART: Regular rate and rhythm. Decreased breath sounds but clear. ABDOMEN: Soft. EXTREMITIES: She has got a right BKA and left leg was mottled now. It is better, though has some blisters in the skin distally. LABORATORY DATA: She has a 12.2 white count , 9.9 hemoglobin, 32.7 hematocrit with 224 platelets. She has a 160 sodium, potassium 3.6, BUN 12, creatinine 0.7, GFR is greater than 60, sugar is 220. Calcium is 8.8, total bilirubin is 0.4, AST 12, ALT 10, alkaline phos is 87, total protein is 5.7. Her urine is down to moderate, it was many. Multiple results from gram stains and other parts of the skin; is being seen by Renal, Infectious Disease, Cardiology, Vascular. We will continue with aggressive treatment and care. If it is okay with Infectious Disease, we will get out of intensive care unit. Also if we could change the IV antibiotics around, she might go to LTACH due to the expensiveness of the antibiotics. We will check her labs tomorrow. We will discuss with the nurse at length, night nurse, tried to get her to talk the She looked at me and smiled and tried to say good morning. Continue aggressive treatment and care. She has multiple problems, septic shock, right BKA, history of PVD, diabetes, UTI, acute kidney injury, cellulitis, sacral ulcer, bilateral pneumonia, and myocardial infarction. Cayetano Pink DO [facility] # [id number] MTDD
--- NOTE | 2018-07-21 09:35 | CP.PCM.CON ---
History of Present Illness - History of Present Illness History of Present Illness: Palliative consult requested by Doctor Jackie for discussion of possible comfort care Patient is a 72 yo female admitted from [place] with low BP{, new discoloration of LEs X few days, lethargy. Many of her meds had to be stopped due to lethargy and inability to swallow what could put her at risk for aspiration. Upon admission patient was diagnosed with recurrent sepsis and IV Avycaz 3.5 gm started.Multiple cultures from right leg wound and buttock wound came back positive as well as urine C&S. Patient was found nonverbal and unable to fallow commends. The condition is most likely result of severe sepsis. Her BP remains low and is supported by Levophed IV. Patient was made DNR/DNI during this admission. Palliative care was called to discuss goals of care including possible comfort care. PMH: Right MARISOL, PVD, COPD Soc. Hx: ex smoker,, [place] resident, son Ja involved in care Fam. Hx: COPD in family Review of Systems - Review of Systems All systems: reviewed and no additional remarkable complaints except Review of Systems: ROS non obtainable from patient due to nonresposnivness and lethargy. ROS obtained from nursing. Per nursing patient remained staring at objects and unable to fallow. Past Patient History - Infectious Disease Hx of Infectious Diseases: None - Tetanus Immunizations Tetanus Immunization: Unknown - Past Medical History & Family History Past Medical History?: Yes - Past Social History Smoking Status: Former Smoker - CARDIAC Hx Cardiac Disorders: Yes Hx Congestive Heart Failure: Yes Hx Hypertension: Yes Hx Peripheral Vascular Disease: Yes - PULMONARY Hx Chronic Obstructive Pulmonary Disease (COPD): Yes - NEUROLOGICAL Hx Seizures: No - HEENT Hx HEENT Problems: Yes Hx Cataracts: Yes - RENAL Hx Chronic Kidney Disease: No - ENDOCRINE/METABOLIC Hx Diabetes Mellitus Type 2: Yes - HEMATOLOGICAL/ONCOLOGICAL Hx Human Immunodeficiency Virus (HIV): No - INTEGUMENTARY Hx Dermatological Problems: No Other/Comment: pvd - MUSCULOSKELETAL/RHEUMATOLOGICAL Hx Musculoskeletal Disorders: Yes Hx Falls: No Other/Comment: RIGHT BKA - GASTROINTESTINAL Hx Gastrointestinal Disorders: No - GENITOURINARY/GYNECOLOGICAL Hx Sexually Transmitted Disorders: No - PSYCHIATRIC Hx Anxiety: Yes Hx Bipolar Disorder: Yes Hx Depression: Yes Hx Substance Use: No - SURGICAL HISTORY Hx Mastectomy: No Hx Orthopedic Surgery: Yes - ANESTHESIA Hx Anesthesia: Yes Hx Anesthesia Reactions: No Hx Malignant Hyperthermia: No Meds Allergies/Adverse Reactions: Allergies Allergy/AdvReac Type Severity Reaction Status Date / Time Iodinated Contrast- Oral and Allergy ANAPHYLAXIS Verified 07/14/18 11:35 IV Dye Penicillins Allergy ANAPHYLAXIS Verified 07/14/18 11:35 aminothiol Allergy ANAPHYLAXIS Uncoded 05/31/18 20:30 - Medications Medications: Current Medications Aspirin (Ecotrin) 81 mg PO DAILY [facility] Last Admin: 07/20/18 11:00 Dose: Not Given Divalproex Sodium (Depakote Er) 250 mg PO HS [facility] Last Admin: 07/20/18 22:05 Dose: Not Given Heparin Sodium (Porcine) (Heparin) 5,000 units SC Q8 [facility] Last Admin: 07/21/18 05:26 Dose: 5,000 units Norepinephrine Bitartrate 8 mg (/ Sodium Chloride) 250 mls @ 7.5 mls/hr IV .Q24H PRN; Protocol PRN Reason: TITRATE PER MD ORDER Last Titration: 07/16/18 23:30 Dose: 0 mcg/min, 0 mls/hr Ceftazidime/Avibactam 2.5 gm/ (Sodium Chloride) 100 mls @ 50 mls/hr IV Q8H [facility]; Protocol Last Admin: 07/21/18 08:27 Dose: 50 mls/hr Potassium Chloride/Dextrose (Potassium Chl 20 Meq In D5w) 1,000 mls @ 75 mls/hr IV .[id number] [facility] Last Admin: 07/21/18 06:15 Dose: Not Given Insulin Aspart (Novolog) 0 unit SC Q6H [facility]; Protocol Last Admin: 07/21/18 05:22 Dose: 6 u Metoprolol Tartrate (Lopressor) 2.5 mg IVP Q6H [facility] Last Admin: 07/21/18 05:26 Dose: 2.5 mg Rosuvastatin Calcium (Crestor) 2.5 mg PO [facility] Last Admin: 07/20/18 22:04 Dose: Not Given Physical Exam - Constitutional Appears: Chronically Ill - Head Exam Head Exam: ATRAUMATIC, NORMAL INSPECTION, NORMOCEPHALIC - Eye Exam Eye Exam: EOMI, Normal appearance, PERRL Pupil Exam: NORMAL ACCOMODATION - ENT Exam ENT Exam: Mucous Membranes Dry - Neck Exam Neck exam: Positive for: Normal Inspection - Respiratory Exam Respiratory Exam: Decreased Breath Sounds - Cardiovascular Exam Cardiovascular Exam: Tachycardia, +S1, +S2 - GI/Abdominal Exam GI & Abdominal Exam: Hypoactive Bowel Sounds, Soft - Rectal Exam Rectal Exam: Deferred - Extremities Exam Additional comments: right leg wound, hip wound - Back Exam Additional comments: Hip wound - Neurological Exam Neurological exam: Alert, Altered - Psychiatric Exam Psychiatric exam: Flat Affect - Skin Skin Exam: Mottled Additional comments: pressure sores Results - Vital Signs Recent Vital Signs: Last Vital Signs Temp 98.0 F 07/21/18 04:00 Pulse 74 07/21/18 07:30 Resp 15 07/21/18 06:30 BP 93/52 L 07/21/18 06:30 Pulse Ox 100 07/21/18 06:30 - Labs Result Diagrams: 07/21/18 06:32 07/21/18 06:30 Labs: Laboratory Results - last 24 hr 07/20/18 07/20/18 07/20/18 11:59 16:44 16:44 WBC RBC Hgb Hct MCV MCH MCHC RDW Plt Count MPV Sodium Potassium Chloride Carbon Dioxide Anion Gap BUN Creatinine Est GFR ( Amer) Est GFR (Non-Af Amer) POC Glucose (mg/dL) 185 H Random Glucose Uric Acid Calcium Total Bilirubin AST ALT Alkaline Phosphatase Total Protein Albumin Globulin Albumin/Globulin Ratio Urine Color Yellow Urine Clarity Slight-cloudy Urine pH 6.0 Ur Specific [place] 1.025 Urine Protein 30 Urine Glucose (UA) Negative Urine Ketones 15 Urine Blood Large Urine Nitrate Negative Urine Bilirubin Negative Urine Urobilinogen 0.2 Ur Leukocyte Esterase Trace Urine WBC (Auto) 20 H Urine RBC (Auto) 35 H Ur Squamous Epith Cells 1 Urine Bacteria Mod H Urine Yeast (Budding) Mod H Urine Osmolality 547 Ur Random Sodium 30 Ur Random Potassium 07/20/18 07/20/18 07/20/18 16:44 17:46 23:54 WBC RBC Hgb Hct MCV MCH MCHC RDW Plt Count MPV Sodium Potassium Chloride Carbon Dioxide Anion Gap BUN Creatinine Est GFR ( Amer) Est GFR (Non-Af Amer) POC Glucose (mg/dL) 200 H 220 H Random Glucose Uric Acid Calcium Total Bilirubin AST ALT Alkaline Phosphatase Total Protein Albumin Globulin Albumin/Globulin Ratio Urine Color Urine Clarity Urine pH Ur Specific [place] Urine Protein Urine Glucose (UA) Urine Ketones Urine Blood Urine Nitrate Urine Bilirubin Urine Urobilinogen Ur Leukocyte Esterase Urine WBC (Auto) Urine RBC (Auto) Ur Squamous Epith Cells Urine Bacteria Urine Yeast (Budding) Urine Osmolality Ur Random Sodium Ur Random Potassium 59.4 07/21/18 07/21/18 07/21/18 05:18 06:30 06:32 WBC 11.6 H RBC 3.78 L Hgb 9.7 L Hct 31.7 L MCV 83.9 MCH 25.6 L MCHC 30.5 L RDW 18.3 H Plt Count 252 MPV 10.7 Sodium 159 H Potassium 3.7 Chloride 127 H Carbon Dioxide 24 Anion Gap 11 BUN 11 Creatinine 0.7 Est GFR ( Amer) > 60 Est GFR (Non-Af Amer) > 60 POC Glucose (mg/dL) 257 H Random Glucose 231 H Uric Acid 7.6 H Calcium 8.4 L Total Bilirubin 0.4 AST 9 L D ALT 12 Alkaline Phosphatase 97 Total Protein 5.5 L Albumin 2.5 L Globulin 3.0 Albumin/Globulin Ratio 0.8 L Urine Color Urine Clarity Urine pH Ur Specific [place] Urine Protein Urine Glucose (UA) Urine Ketones Urine Blood Urine Nitrate Urine Bilirubin Urine Urobilinogen Ur Leukocyte Esterase Urine WBC (Auto) Urine RBC (Auto) Ur Squamous Epith Cells Urine Bacteria Urine Yeast (Budding) Urine Osmolality Ur Random Sodium Ur Random Potassium Assessment & Plan - Assessment and Plan (Free Text) Assessment: Palliative consult DNR/DNI, POLST on chart, PPS 10% I reviewed medical records, all diagnostic studies and examined patient in the bed Patient is alert but altered unable to communicate nor to fallow simple commends. Affect is flat. Patient looks chronically ill and weak. Breath sounds are diminished, no cough noted. Abdomen flat. Patient is on modified dysphagia diet and needs max assistance with feedings. Patient is able to move upper and lower extremities. Multiple pressure sores; to right leg and back area. Wound care on board. Wound cultures and urine cultures positive. IV antibiotics on board. Na was 160 yesterday and just slightly lower this morning, 159. Doctor Pink is the PMD and is suggesting continuing the IV antibiotics. Patient's wishes for the end of life care are not known except DNR/DNI. I called the NOK Leti, patient's daughter in law a few times since yesterday and left voice mails. This morning, patient's son Ja called back and asked NO to call patient's daughter in law any more nor to share any info with her. I suggested the current contact info to be changed with Admission office and made Karlos HARRINGTON aware of this. Ja and I agreed to meet today around 11 am and discuss goals of care. Met with patient's son Ja. Goals of care discussed. Patient's condition reviewed. Son stated concerns about his mother's condition. he feels she has been declining since 2017. he is worried she may be suffering and is linette rned with her quality of life. The son stated he has been thinking about comfort care for while now. I offered more information about comfort care. He agreed it was care he wanted for his mother. hefeels she was dying and wanted her to pass on comfortably. The son has arranged home services. Further the son requested his cousin Rom Boyer [phone] to be called as second decision maker in his absence from trough August 09. I spoke to Doctor Pink. He agreed with plan for hospice care. Son [facility], Doctor Joesph agreed. Impression * Acutely ill lady with long and complex medica; Hx * Malnutrition due to AMS * Multiple infected pressure sores * I feel that this patient is approaching end of her life and I cannot foresee any meaningful recovery for this patient. * Son is requesting Comfort care with [facility] Suggestions * Promote assistance with repositioning for comfort * Aspiration precautions * Comfort food only, as tolerated * Hospice evaluation * Agree with DNR/DNI Palliative care will sign off at this time. Advance care planing 55 min
--- NOTE | 2018-07-21 10:46 | CP.PCM.PCO ---
Physician Communication Note - Physician Communication Note Physician Communication Note: Family meeting with son Ja, today at 11 am
--- NOTE | 2018-07-21 11:40 | MRI ---
Date of service: 07/21/2018 PROCEDURE: MRI BRAIN WITHOUT CONTRAST HISTORY: AMS, detioration COMPARISON: Unenhanced head CT 07/14/2018. TECHNIQUE: Multiplanar, multisequence MR images of the brain were obtained without intravenous contrast enhancement. FINDINGS: Suboptimal examination due to extensive motion artifacts. HEMORRHAGE: No definitive hemorrhage appreciable. DWI: No evidence of an acute or early subacute infarction. BRAIN PARENCHYMA: No mass-effect once again. No suspicious extra fluid collection appreciated. Ventricular lower versus sulcal and cisternal dilatation remain disparate with ventricles more prominent than expected reflecting either central atrophy or potential normal pressure hydrocephalus. No significant interval change appreciated. Posterior fossa contents are grossly stable appearing. Diffuse cerebral atrophy chronic microangiopathy are identified. VENTRICLES: Unremarkable. No hydrocephalus. CRANIUM: Unremarkable. ORBITS: Grossly unremarkable. PARANASAL SINUSES/MASTOIDS: Clear VASCULAR SYSTEM: Skull base flow voids intact. OTHER FINDINGS: None. IMPRESSION: Limited examination due to extensive motion artifacts. Disparate ventricle versus sulcal and cisternal volume may reflect central atrophy or normal pressure hydrocephalus. No gross intracranial hemorrhage or definitive acute or subacute brain infarction appreciable. Age-related neuro degenerative findings are otherwise appreciable, once again.
--- NOTE | 2018-07-21 12:21 | CP.PCM.PN ---
Subjective - Date & Time of Evaluation Date of Evaluation: 07/21/18 Time of Evaluation: 12:21 - Subjective Subjective: Nephrology Consultation Note: Assessment: stable hypernatremia likely dehydration Hypokalemia Acute Kidney Injury (N17.9) resolved Rt renal atrophy and left adrenal adenoma on imaging sepsis PVD, DM, HTN, hypercholesterolemia, right BKA, bipolar depression disorder sys CHF, NSTEMI Plan No acute need for renal replacement therapy at this time. . Hypertension control with meds as ordered. Maintain hemodynamics stable. Avoid hypotension. Patient not on ACEI/ARB due to recent TAMEKA and low BP Monitor Input/Output, daily weights and renal function with basic metabolic panel increased D5W @ 100 ml/hr with 20 meq K encourage free water intake, as possible Dose meds/antibiotics for GFR>60. Glycemic control Further work up/management as per primary team Thanks for allowing me to participate in care of your patient. Will follow patient with you. Please call if any Qs. had d/w team Dr Robson Nicholas Office: [phone] Chief Complaint; unable to obtain Reason for consult: Hypernatremia HPI: Pt is a 72 year old female with PMH of PVD, DM, HTN, hypercholesterolemia, right BKA, bipolar depression disorder admitted with AMS and sepsis. was also managed for TAMEKA, CHF with pleural effusion, NSTEMI renal consult for hypernatremia pt unable to provide any hx ROS: unable obtain from pt Physical Examination: General Appearance: in no acute respiratory distress, not co-operative . ill appearing Vitals reviewed and noted as below Head; Atraumatic, normocephalic ENT: unable EYES: Pupils are equal, round and reactive to light accommodation. Eye muscles and extraocular movement intact. Sclera is anicteric. Neck; supple no lymphadenopathy, no thyromegaly or bruit Lungs: Normal respiratory rate/effort. Breath sounds reduced at Rt base Heart: Normal rate. s1s2 normal. No rub or gallop. Extremities: no edema. No varicose veins. Rt BKA Neurological: Patient is non communicative Skin: Warm and dry. Normal turgor. No rash. Palpitation: Normal elasticity for age Abdomen: Abdomen is soft. Bowel sounds +. There is no abdominal tenderness, no guarding/rigidity no organomegaly Psych: unable MSK: no joint tenderness or swelling. Digits and nails normal, no deformity : kidney or bladder not palpable Labs/imaging reviewed. Past medical history, past surgical history, family history, social history, allergy reviewed and noted as below Family hx: no hx of CKD. Rest non-contributory Objective - Vital Signs/Intake and Output Vital Signs (last 24 hours): Temp Pulse Resp BP Pulse Ox 98.0 F 74 15 93/52 L 100 07/21/18 04:00 07/21/18 07:30 07/21/18 06:30 07/21/18 06:30 07/21/18 06:30 Intake and Output: 07/21/18 07/21/18 06:59 18:59 Intake Total 775 Output Total 200 Balance 575 - Medications Medications: Current Medications Aspirin (Ecotrin) 81 mg PO DAILY [facility] Last Admin: 07/20/18 11:00 Dose: Not Given Divalproex Sodium (Depakote Er) 250 mg PO HS [facility] Last Admin: 07/20/18 22:05 Dose: Not Given Heparin Sodium (Porcine) (Heparin) 5,000 units SC Q8 [facility] Last Admin: 07/21/18 05:26 Dose: 5,000 units Norepinephrine Bitartrate 8 mg (/ Sodium Chloride) 250 mls @ 7.5 mls/hr IV .Q24H PRN; Protocol PRN Reason: TITRATE PER MD ORDER Last Titration: 07/16/18 23:30 Dose: 0 mcg/min, 0 mls/hr Ceftazidime/Avibactam 2.5 gm/ (Sodium Chloride) 100 mls @ 50 mls/hr IV Q8H [facility]; Protocol Last Admin: 07/21/18 08:27 Dose: 50 mls/hr Potassium Chloride/Dextrose (Potassium Chl 20 Meq In D5w) 1,000 mls @ 100 mls/hr IV .Q10H [facility] Insulin Aspart (Novolog) 0 unit SC Q6H [facility]; Protocol Last Admin: 07/21/18 05:22 Dose: 6 u Metoprolol Tartrate (Lopressor) 2.5 mg IVP Q6H [facility] Last Admin: 07/21/18 05:26 Dose: 2.5 mg Rosuvastatin Calcium (Crestor) 2.5 mg PO HS [facility] Last Admin: 07/20/18 22:04 Dose: Not Given - Labs Labs: 07/21/18 06:32 07/21/18 06:30 PT 15.6 SECONDS (9.7-12.2) H 07/14/18 13:15 INR 1.4 07/14/18 13:15 APTT 31 SECONDS (21-34) 07/14/18 13:15
--- NOTE | 2018-07-21 12:42 | CP.PCM.PN ---
Subjective - Date & Time of Evaluation Date of Evaluation: 07/21/18 Time of Evaluation: 09:00 - Subjective Subjective: events noted rx in progress Objective - Vital Signs/Intake and Output Vital Signs (last 24 hours): Temp Pulse Resp BP Pulse Ox 98.0 F 74 15 93/52 L 100 07/21/18 04:00 07/21/18 07:30 07/21/18 06:30 07/21/18 06:30 07/21/18 06:30 Intake and Output: 07/21/18 07/21/18 06:59 18:59 Intake Total 775 Output Total 200 Balance 575 - Medications Medications: Current Medications Aspirin (Ecotrin) 81 mg PO DAILY [facility] Last Admin: 07/20/18 11:00 Dose: Not Given Divalproex Sodium (Depakote Er) 250 mg PO HS [facility] Last Admin: 07/20/18 22:05 Dose: Not Given Heparin Sodium (Porcine) (Heparin) 5,000 units SC Q8 [facility] Last Admin: 07/21/18 05:26 Dose: 5,000 units Norepinephrine Bitartrate 8 mg (/ Sodium Chloride) 250 mls @ 7.5 mls/hr IV .Q24H [facility]N; Protocol PRN Reason: TITRATE PER MD ORDER Last Titration: 07/16/18 23:30 Dose: 0 mcg/min, 0 mls/hr Ceftazidime/Avibactam 2.5 gm/ (Sodium Chloride) 100 mls @ 50 mls/hr IV Q8H [facility]; Protocol Last Admin: 07/21/18 08:27 Dose: 50 mls/hr Potassium Chloride/Dextrose (Potassium Chl 20 Meq In D5w) 1,000 mls @ 100 mls/ hr IV .Q10H [facility] Insulin Aspart (Novolog) 0 unit SC Q6H [facility]; Protocol Last Admin: 07/21/18 05:22 Dose: 6 u Metoprolol Tartrate (Lopressor) 2.5 mg IVP Q6H [facility] Last Admin: 07/21/18 05:26 Dose: 2.5 mg Rosuvastatin Calcium (Crestor) 2.5 mg PO HS [facility] Last Admin: 07/20/18 22:04 Dose: Not Given - Labs Labs: 07/21/18 06:32 07/21/18 06:30 PT 15.6 SECONDS (9.7-12.2) H 07/14/18 13:15 INR 1.4 07/14/18 13:15 APTT 31 SECONDS (21-34) 07/14/18 13:15 - Constitutional Appears: Confused, Chronically Ill - Head Exam Head Exam: NORMOCEPHALIC - Eye Exam Eye Exam: absent: Scleral icterus - ENT Exam ENT Exam: Mucous Membranes Dry - Neck Exam Neck Exam: absent: Lymphadenopathy - Respiratory Exam Respiratory Exam: Decreased Breath Sounds - Cardiovascular Exam Cardiovascular Exam: REGULAR RHYTHM - GI/Abdominal Exam GI & Abdominal Exam: Distended, Soft - Rectal Exam Rectal Exam: Deferred - Exam Exam: NORMAL INSPECTION - Extremities Exam Extremities Exam: Pedal Edema. absent: Normal Capillary Refill Additional comments: right BKA left foot redness same - Back Exam Back Exam: absent: CVA tenderness (L), CVA tenderness (R) - Neurological Exam Neurological Exam: Altered - Psychiatric Exam Psychiatric exam: Depressed - Skin Skin Exam: Dry Assessment and Plan (1) Cellulitis Status: Acute (2) Septic shock Status: Acute (3) TAMEKA (acute kidney injury) Status: Acute (4) Acute respiratory failure with hypoxemia Status: Acute (5) Altered mental status Status: Acute (6) Bipolar disorder Status: Acute (7) CKD (chronic kidney disease) stage 3, GFR 30-59 ml/min Status: Acute (8) Cellulitis, leg Status: Acute - Assessment and Plan (Free Text) Assessment: need cardio follow up iv antibiotics in progress poor prognosis
[2018-07-21] MEDS: Rosuvastatin Calcium 2.5 mg Tab PO SCH (21:42)
[2018-07-22] MEDS: (Novolog) Insulin Aspart, Recombinant 100 u/ml 10 ml vial SC SCH ×4 (00:13→18:38)
[2018-07-22] MEDS: Metoprolol 1 mg/ml Inj IVP SCH ×4 (00:16→16:59)
[2018-07-22 06:31] LABS: HEMOGLOBIN 9.5 g/dL (11.0-16.0); MEAN CELL VOLUME 84.1 fL (81.0-99.0); MEAN PLATELET VOLUME 10.5 fL (7.2-11.7); RBC 3.66 Mil/uL (3.80-5.20); RED CELL DISTRIBUTION WIDTH 19.9 % (11.5-14.5); WHITE BLOOD COUNT 10.1 K/uL (4.8-10.8)
[2018-07-22 06:35] LABS: ALB/GLOB RATIO 0.8 (1.0-2.1); ALBUMIN 2.2 g/dL (3.5-5.0); ALT/SGPT 23 U/L (9-52); AST/SGOT 11 U/L (14-36); BLOOD UREA NITROGEN 8 mg/dL (7-17); CALCIUM 8.3 mg/dl (8.6-10.4); GFR NON-AFRICAN AMERICAN > 60
[2018-07-22] MEDS: Potassium Ch 20mEq in D5W 1,000 ML IV SCH ×3 (06:41→19:46)
--- NOTE | 2018-07-22 12:13 | PN ---
DATE: 07/22/2018 SUBJECTIVE: She is alert, looking at me, staring, not talking. She had an MRI of the brain, which showed no real acute or subacute infarcts. She is on multiple medications. She is on ceftazidime, avibactam, Crestor, Depakote, Ecotrin, heparin, Lopressor, norepinephrine, insulin and potassium replacement. PHYSICAL EXAMINATION: VITAL SIGNS: She has 98.2 temp, 76 pulse, 127/62 blood pressure, 16 respiratory rate, 98% O2 sat on 2 liters. HEENT: Head is atraumatic, normocephalic. Her eyes are open. She is looking at me. She is trying to talk, but she cannot. She looks very displaced mentally. HEART: Regular rate. LUNGS: Decreased breath sounds, but clear. ABDOMEN: Soft, nontender. Positive bowel sounds. EXTREMITIES: The right BKA bandaged and so is the left foot is bandaged. She has cellulitis. She has septic shock, an [place], sacral ulcer, bilateral pneumonia, acute kidney injury, peripheral vascular disease, diabetes. LABORATORY DATA: She has a 10.1 white count; best it has been, 9.5 hemoglobin, 30.8 hematocrit with 223 platelets. She has 150 sodium, potassium is 4.1, BUN is 8, creatinine 0.8, GFR is greater than 60, sugar is 242, calcium 8.3. Total bili is 0.4, AST is 11, ALT is 23, alk phos 74, total protein is 5.2. gram stains. She is being seen by Infectious Disease, Renal, sr. consultant, Cardiology. Hopefully, she will get to a intermodal dispatcher care placement. I believe we need to change her IV antibiotics if possible by Infectious Disease. She because it is too expensive. I will continue aggressive treatment and care and trying to treat the septic shock. Haja Pink DO MTDD
--- NOTE | 2018-07-22 16:06 | CP.PCM.PN ---
Subjective - Date & Time of Evaluation Date of Evaluation: 07/22/18 Time of Evaluation: 09:35 - Subjective Subjective: Patient and bed not communicating Objective - Vital Signs/Intake and Output Vital Signs (last 24 hours): Temp Pulse Resp BP Pulse Ox 97.4 F L 77 16 144/86 100 07/22/18 08:00 07/22/18 10:00 07/22/18 08:00 07/22/18 08:00 07/22/18 08:00 Intake and Output: 07/22/18 07/22/18 06:59 18:59 Intake Total 700 400 Output Total 400 Balance 300 400 - Medications Medications: Current Medications Aspirin (Ecotrin) 81 mg PO DAILY [facility] Last Admin: 07/22/18 09:03 Dose: Not Given Divalproex Sodium (Depakote Er) 250 mg PO HS [facility] Last Admin: 07/21/18 21:42 Dose: Not Given Heparin Sodium (Porcine) (Heparin) 5,000 units SC Q8 [facility] Last Admin: 07/22/18 05:57 Dose: 5,000 units Norepinephrine Bitartrate 8 mg (/ Sodium Chloride) 250 mls @ 7.5 mls/hr IV .Q24H PRN; Protocol PRN Reason: TITRATE PER MD ORDER Last Titration: 07/16/18 23:30 Dose: 0 mcg/min, 0 mls/hr Potassium Chloride/Dextrose (Potassium Chl 20 Meq In D5w) 1,000 mls @ 100 mls/hr IV .Q10H [facility] Last Admin: 07/22/18 06:41 Dose: 100 mls/hr Insulin Aspart (Novolog) 0 unit SC Q6H [facility]; Protocol Last Admin: 07/22/18 12:00 Dose: Not Given Metoprolol Tartrate (Lopressor) 2.5 mg IVP Q6H [facility] Last Admin: 07/22/18 13:28 Dose: 2.5 mg Rosuvastatin Calcium (Crestor) 2.5 mg PO HS [facility] Last Admin: 07/21/18 21:42 Dose: Not Given - Labs Labs: 07/22/18 05:52 07/22/18 05:53 PT 15.6 SECONDS (9.7-12.2) H 07/14/18 13:15 INR 1.4 07/14/18 13:15 APTT 31 SECONDS (21-34) 07/14/18 13:15 - Constitutional Appears: No Acute Distress - Eye Exam Eye Exam: Conjunctival injection - ENT Exam ENT Exam: Mucous Membranes Moist - Respiratory Exam Respiratory Exam: NORMAL BREATHING PATTERN. absent: Chest Wall Tenderness - Cardiovascular Exam Cardiovascular Exam: absent: JVD, Rubs - GI/Abdominal Exam GI & Abdominal Exam: Soft - Extremities Exam Extremities Exam: absent: Calf Tenderness - Back Exam Back Exam: absent: CVA tenderness (L), CVA tenderness (R) - Neurological Exam Neurological Exam: Altered - Psychiatric Exam Psychiatric exam: Flat Affect Assessment and Plan - Assessment and Plan (Free Text) Assessment: Assessment: stable hypernatremia likely dehydration Hypokalemia Acute Kidney Injury (N17.9) resolved Rt renal atrophy and left adrenal adenoma on imaging sepsis PVD, DM, HTN, hypercholesterolemia, right BKA, bipolar depression disorder sys CHF, NSTEMI The plan Serum sodium trending down latest 150 from 159 Continue D5W with the potassium chloride supplement although potassium is okay today Serum chloride trending down as well Antibiotics as per ID
[2018-07-22] MEDS: Rosuvastatin Calcium 2.5 mg Tab PO SCH (21:22)
[2018-07-23] MEDS: (Novolog) Insulin Aspart, Recombinant 100 u/ml 10 ml vial SC SCH ×4 (00:13→18:15)
[2018-07-23] MEDS: Metoprolol 1 mg/ml Inj IVP SCH ×5 (00:41→22:33)
[2018-07-23] MEDS: Potassium Ch 20mEq in D5W 1,000 ML IV SCH ×4 (08:51→21:54)
[2018-07-23 09:25] LABS: MEAN CELL VOLUME 83.8 fL (81.0-99.0); MEAN CORPUSCULAR HEMOGLOBIN 26.2 pg (27.0-31.0); MEAN CORPUSCULAR HGB CONC 31.3 g/dL (33.0-37.0); MEAN PLATELET VOLUME 11.2 fL (7.2-11.7); RBC 4.18 Mil/uL (3.80-5.20); RED CELL DISTRIBUTION WIDTH 19.5 % (11.5-14.5); WHITE BLOOD COUNT 9.1 K/uL (4.8-10.8)
[2018-07-23 09:40] LABS: ALB/GLOB RATIO 0.8 (1.0-2.1); ALBUMIN 2.6 g/dL (3.5-5.0); ALT/SGPT 16 U/L (9-52); AST/SGOT 12 U/L (14-36); BLOOD UREA NITROGEN 7 mg/dL (7-17); CALCIUM 8.6 mg/dl (8.6-10.4); GFR NON-AFRICAN AMERICAN > 60
--- NOTE | 2018-07-23 12:11 | PN ---
DATE: 07/23/2018 SUBJECTIVE: I saw her in bed 571. She is at intensive care unit. She is alert. She is not talking. They are feeding her and she eats too good. She is currently on Crestor, Depakote, potassium, IV fluids, Ecotrin, heparin, Lopressor, and insulin coverage. She is alert. She is not talking. She seems to be confused and staring. There is an MRI of the brain, which did not show any acute infarct. Awaiting for Neuro to re-consult to see if anything else for the reason why she is not coming back mentally. She used to talk. PHYSICAL EXAMINATION: GENERAL: Looking at me, not talking. VITAL SIGNS: Temp 97.9, 80 pulse, 115/64 blood pressure, 20 respiratory rate, 95% sat on room air. HEENT: Head is atraumatic and normocephalic. HEART: Regular rate. LUNGS: Decreased breath sounds, but clear. ABDOMEN: Soft. EXTREMITIES: She has cellulitis. The right BKA and left leg has some cellulitis for which she presents for treatment. LABORATORY DATA: She has a 10.1 white count; best it has been, 9.5 hemoglobin, 30.8 hematocrit with 223 platelets. She has 150 sodium, potassium 4.1, BUN 8, creatinine 0.6, GFR is greater than 60, sugar is 263, and calcium is 8.3. Total bili is 0.4, AST is 11, ALT is 23, alk phos 74, total protein is 5.2. I have re-consulted Neurology to get the opinion why she is mentally not feeling the way she would be before she came in here and if he tells me nothing else to do, we will get her back to [facility] for further care and they can treat her there. If with multiple problems with cellulitis, change in mentation, peripheral vascular disease, septic shock, acute kidney injury, acute respiratory failure, hypoxemia, altered mental status bipolar. Continue aggressive treatment and care. Haja Pink DO [email or web address]
[2018-07-23] MEDS: Rosuvastatin Calcium 2.5 mg Tab PO SCH (22:15)
[2018-07-24] MEDS: (Novolog) Insulin Aspart, Recombinant 100 u/ml 10 ml vial SC SCH ×3 (01:08→13:00)
[2018-07-24] MEDS: Metoprolol 1 mg/ml Inj IVP SCH ×2 (05:31→12:09)
[2018-07-24 06:52] LABS: HEMOGLOBIN 11.1 g/dL (11.0-16.0); MEAN CELL VOLUME 83.1 fL (81.0-99.0); MEAN CORPUSCULAR HEMOGLOBIN 25.5 pg (27.0-31.0); MEAN CORPUSCULAR HGB CONC 30.7 g/dL (33.0-37.0); MEAN PLATELET VOLUME 10.8 fL (7.2-11.7); RBC 4.36 Mil/uL (3.80-5.20); WHITE BLOOD COUNT 8.6 K/uL (4.8-10.8)
[2018-07-24 07:04] LABS: ALB/GLOB RATIO 0.9 (1.0-2.1); ALBUMIN 2.4 g/dL (3.5-5.0); ALT/SGPT 20 U/L (9-52); AST/SGOT 9 U/L (14-36); BLOOD UREA NITROGEN 5 mg/dL (7-17); CALCIUM 7.1 mg/dl (8.6-10.4); GFR NON-AFRICAN AMERICAN > 60
[2018-07-24 08:35] VITALS: O2SAT 100
[2018-07-24] MEDS: Potassium Ch 20mEq in D5W 1,000 ML IV SCH (09:03)
--- NOTE | 2018-07-24 12:58 | CP.PCM.PN ---
Subjective - Date & Time of Evaluation Date of Evaluation: 07/24/18 Time of Evaluation: 12:30 - Subjective Subjective: Patient seen today, awake, alert, oriented to person follow simple commands , NAD Objective - Vital Signs/Intake and Output Vital Signs (last 24 hours): Temp Pulse Resp BP Pulse Ox 98 F 87 20 129/81 100 07/24/18 08:00 07/24/18 12:08 07/24/18 08:00 07/24/18 12:08 07/24/18 08:00 Intake and Output: 07/24/18 07/24/18 06:59 18:59 Intake Total 1750 Output Total 950 Balance 800 - Medications Medications: Current Medications Aspirin (Ecotrin) 81 mg PO DAILY [facility] Last Admin: 07/24/18 10:32 Dose: Not Given Divalproex Sodium (Depakote Er) 250 mg PO HS [facility] Last Admin: 07/23/18 21:54 Dose: Not Given Heparin Sodium (Porcine) (Heparin) 5,000 units SC Q8 [facility] Last Admin: 07/24/18 06:09 Dose: 5,000 units Insulin Aspart (Novolog) 0 unit SC Q6H [facility]; Protocol Last Admin: 07/24/18 06:54 Dose: 8 u Metoprolol Tartrate (Lopressor) 2.5 mg IVP Q6H [facility] Last Admin: 07/24/18 12:09 Dose: 2.5 mg Rosuvastatin Calcium (Crestor) 2.5 mg PO HS [facility] Last Admin: 07/23/18 22:15 Dose: 2.5 mg - Labs Labs: 07/24/18 06:20 07/24/18 06:20 PT 15.6 SECONDS (9.7-12.2) H 07/14/18 13:15 INR 1.4 07/14/18 13:15 APTT 31 SECONDS (21-34) 07/14/18 13:15 Assessment and Plan - Assessment and Plan (Free Text) Assessment: A/P 72 yr old female admitted from [place] with AMS, and hypotension sepsis. per cm and sw family agrees for hospice and compassionate care seen patient and accepts patient fo gale D/w Dr. Andujar, patient cleared for discharge to [facility] under compassionate care hospice
--- NOTE | 2018-07-24 13:30 | CP.PCM.PN ---
Subjective - Date & Time of Evaluation Date of Evaluation: 07/24/18 Time of Evaluation: 13:29 - Subjective Subjective: Nephrology Consultation Note: Assessment: stable hypernatremia likely dehydration Hypokalemia Acute Kidney Injury (N17.9) resolved Rt renal atrophy and left adrenal adenoma on imaging sepsis PVD, DM, HTN, hypercholesterolemia, right BKA, bipolar depression disorder sys CHF, NSTEMI Plan No acute need for renal replacement therapy at this time. . Hypertension control with meds as ordered. Maintain hemodynamics stable. Avoid hypotension. Patient not on ACEI/ARB due to recent TAMEKA and low BP Monitor Input/Output, daily weights and renal function with basic metabolic panel d/c IVF encourage free water intake, as possible Dose meds/antibiotics for GFR>60. Glycemic control Further work up/management as per primary team Thanks for allowing me to participate in care of your patient. Will follow patient with you. Please call if any Qs. had d/w team Dr Robson Nicholas Office: [phone] Chief Complaint; unable to obtain Reason for consult: Hypernatremia HPI: Pt is a 72 year old female with PMH of PVD, DM, HTN, hypercholesterolemia, right BKA, bipolar depression disorder admitted with AMS and sepsis. was also managed for TAMEKA, CHF with pleural effusion, NSTEMI renal consult for hypernatremia pt unable to provide any hx ROS: pt more communicative. hx still limited but she feels better Physical Examination: General Appearance: in no acute respiratory distress, not co-operative . better appearing Vitals reviewed and noted as below Head; Atraumatic, normocephalic ENT: normal. has coated tongue EYES: Pupils are equal, round and reactive to light accommodation. Eye muscles and extraocular movement intact. Sclera is anicteric. Neck; supple no lymphadenopathy, no thyromegaly or bruit Lungs: Normal respiratory rate/effort. Breath sounds reduced at Rt base Heart: Normal rate. s1s2 normal. No rub or gallop. Extremities: no edema. No varicose veins. Rt BKA Neurological: Patient is more communicative Skin: Warm and dry. Normal turgor. No rash. Palpitation: Normal elasticity for age Abdomen: Abdomen is soft. Bowel sounds +. There is no abdominal tenderness, no guarding/rigidity no organomegaly Psych: unable MSK: no joint tenderness or swelling. Digits and nails normal, no deformity : kidney or bladder not palpable Labs/imaging reviewed. Past medical history, past surgical history, family history, social history, allergy reviewed and noted as below Family hx: no hx of CKD. Rest non-contributory Objective - Vital Signs/Intake and Output Vital Signs (last 24 hours): Temp Pulse Resp BP Pulse Ox 98 F 87 20 129/81 100 07/24/18 08:00 07/24/18 12:08 07/24/18 08:00 07/24/18 12:08 07/24/18 08:00 Intake and Output: 07/24/18 07/24/18 06:59 18:59 Intake Total 1750 Output Total 950 Balance 800 - Medications Medications: Current Medications Aspirin (Ecotrin) 81 mg PO DAILY COUNTS [facility]CLUDE [facility] BEDS AT [facility] Last Admin: 07/24/18 10:32 Dose: Not Given Divalproex Sodium (Depakote Er) 250 mg PO HS COUNTS INCLUDE 234 BEDS AT THE [facility] Last Admin: 07/23/18 21:54 Dose: Not Given Heparin Sodium (Porcine) (Heparin) 5,000 units SC Q8 COUNTS INCLUDE 234 BEDS AT THE [facility] Last Admin: 07/24/18 06:09 Dose: 5,000 units Insulin Aspart (Novolog) 0 unit SC Q6H COUNTS INCLUDE 234 BEDS AT THE [facility]; Protocol Last Admin: 07/24/18 06:54 Dose: 8 u Metoprolol Tartrate (Lopressor) 2.5 mg IVP Q6H COUNTS INCLUDE 234 BEDS AT THE [facility] Last Admin: 07/24/18 12:09 Dose: 2.5 mg Rosuvastatin Calcium (Crestor) 2.5 mg PO HS COUNTS INCLUDE 234 BEDS AT THE [facility] Last Admin: 07/23/18 22:15 Dose: 2.5 mg - Labs Labs: 07/24/18 06:20 07/24/18 06:20 PT 15.6 SECONDS (9.7-12.2) H 07/14/18 13:15 INR 1.4 07/14/18 13:15 APTT 31 SECONDS (21-34) 07/14/18 13:15
[2018-07-24 16:14] VITALS: BP 121/84; PULSE 90; RESP 18; TEMP 98.5
--- NOTE | 2018-07-24 17:25 | CP.PCM.PN ---
Subjective - Date & Time of Evaluation Date of Evaluation: 07/24/18 Time of Evaluation: 09:00 - Subjective Subjective: awake alert responsive nad Objective - Vital Signs/Intake and Output Vital Signs (last 24 hours): Temp Pulse Resp BP Pulse Ox 98.5 F 90 18 121/84 100 07/24/18 14:00 07/24/18 14:00 07/24/18 14:00 07/24/18 14:00 07/24/18 14:00 Intake and Output: 07/24/18 07/24/18 06:59 18:59 Intake Total 1750 500 Output Total 950 650 Balance 800 -150 - Labs Labs: 07/24/18 06:20 07/24/18 06:20 PT 15.6 SECONDS (9.7-12.2) H 07/14/18 13:15 INR 1.4 07/14/18 13:15 APTT 31 SECONDS (21-34) 07/14/18 13:15 - Constitutional Appears: Non-toxic, Chronically Ill - Head Exam Head Exam: NORMOCEPHALIC - Eye Exam Eye Exam: absent: Scleral icterus - ENT Exam ENT Exam: Mucous Membranes Dry - Neck Exam Neck Exam: absent: Lymphadenopathy - Respiratory Exam Respiratory Exam: Decreased Breath Sounds - Cardiovascular Exam Cardiovascular Exam: REGULAR RHYTHM - GI/Abdominal Exam GI & Abdominal Exam: Distended, Soft - Rectal Exam Rectal Exam: Deferred - Exam Exam: NORMAL INSPECTION - Extremities Exam Extremities Exam: absent: Pedal Edema Additional comments: BKA right side - Back Exam Back Exam: absent: CVA tenderness (L), CVA tenderness (R) - Neurological Exam Neurological Exam: Alert, Altered, Awake - Psychiatric Exam Psychiatric exam: Depressed - Skin Skin Exam: Dry Assessment and Plan (1) Cellulitis Status: Acute (2) Septic shock Status: Acute (3) TAMEKA (acute kidney injury) Status: Acute (4) Acute respiratory failure with hypoxemia Status: Acute (5) Altered mental status Status: Acute (6) Bipolar disorder Status: Acute (7) CKD (chronic kidney disease) stage 3, GFR 30-59 ml/min Status: Acute (8) Cellulitis, leg Status: Acute - Assessment and Plan (Free Text) Assessment: cont iv rx vascular re-eval
== END 2018-07-24 16:50 | DRG 871 ==
LOC: C.ER 11:07 → C.9E 14:56 → C.6T 18:17 → C.9E 18:29 → C.5S 18:59 → C.9E 19:08 → C.9I 19:13 → C.5S 07-22 19:22
PROVIDERS: ADMIT Family Medicine; ATTEND Family Medicine
PROC: 02HV33Z Insertion of Infusion Device into Superior Vena Cava, Percutaneous Approach (ICD-10-PCS; principal; 2018-07-15)
DX: A41.9 Sepsis, unspecified organism (principal); R65.21 Severe sepsis with septic shock; G93.41 Metabolic encephalopathy; J18.9 Pneumonia, unspecified organism; J96.01 Acute respiratory failure with hypoxia; N39.0 Urinary tract infection, site not specified; N17.9 Acute kidney failure, unspecified; E87.0 Hyperosmolality and hypernatremia; J44.0 Chronic obstructive pulmonary disease with (acute) lower respiratory infection; L03.116 Cellulitis of left lower limb; L03.115 Cellulitis of right lower limb; E46 Unspecified protein-calorie malnutrition; I13.0 Hypertensive heart and chronic kidney disease with heart failure and stage 1 through stage 4 chronic kidney disease, or unspecified chronic kidney disease; E11.51 Type 2 diabetes mellitus with diabetic peripheral angiopathy without gangrene; E78.00 Pure hypercholesterolemia, unspecified; F17.200 Nicotine dependence, unspecified, uncomplicated; F41.9 Anxiety disorder, unspecified; I50.9 Heart failure, unspecified; Z89.511 Acquired absence of right leg below knee; E11.65 Type 2 diabetes mellitus with hyperglycemia; I48.91 Unspecified atrial fibrillation; Z95.828 Presence of other vascular implants and grafts; N18.3 Chronic kidney disease, stage 3 (moderate); D35.02 Benign neoplasm of left adrenal gland; F31.9 Bipolar disorder, unspecified; E11.22 Type 2 diabetes mellitus with diabetic chronic kidney disease; E86.0 Dehydration; E87.6 Hypokalemia; Z66 Do not resuscitate; L89.150 Pressure ulcer of sacral region, unstageable